=== PATIENT | male | born 1945 | race Caucasian/White ===

== ENCOUNTER → 2017-05-06 07:07 | Outpatient (CLI) | payer MEDICARE, SELFPAY ==
--- NOTE | 2017-05-06 07:23 | MRI_ITS ---
STUDY: MRI LEFT KNEE REASON FOR EXAM: Male, 71 years old. Left knee pain x2 months prior surgery. TECHNIQUE: Standardized fat and water weighted pulse sequences were obtained in all 3 orthogonal planes. COMPARISON: X-ray April 04, 2017. FINDINGS: The patient is status post partial medial meniscectomy with surgical recontouring. There is loss of substance with fraying of the free edge. There is diffuse, full thickness articular cartilage loss of the medial femorotibial compartment. There is mild osteoarthritic spur formation of the medial knee compartment. Normal medial collateral ligamentous complex (MCL). Normal distal semimembranosus, gracilis and semitendinosus tendons. Normal lateral meniscus. Normal hyaline cartilage of the lateral femorotibial compartment. Normal lateral femoral condyle and tibial plateau. Normal proximal tibiofibular articulation. Normal lateral collateral (fibular) ligament. Normal popliteus tendon. Normal biceps femoris tendon. There is edema with swelling and loss of definition of the of the ACL fascicles, producing a celery stick appearance, with preservation of the continuity of fibers, consistent with mucoid cystic degeneration, series 5 image . Normal posterior cruciate ligament (PCL). Normal congruent patellofemoral articulation. Normal hyaline cartilage of the patellofemoral compartment. Normal medial and lateral patellar retinaculum. Normal quadriceps tendon. Normal patellar tendon. Normal Hoffa's fat pad. There is a moderate volume joint effusion. The soft tissues are unremarkable. The otherwise visualized osseous structures are unremarkable. MRI/Lower Ext Joint Only (Routine) IMPRESSION: Loss of substance with surgical recontouring of the medial meniscus. Degenerative change of the medial compartment. 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 Joint effusion. Electronically Signed: Willie Stratton MD at 9:17 EST , Service support ,
== END ==
PROVIDERS: Family Provider Family Medicine Geriatric Medicine; PCP Family Medicine Geriatric Medicine; Visit Provider Family Medicine Geriatric Medicine
DX: M25.569 Pain in unspecified knee (principal)
CPT/HCPCS: 73721

== ENCOUNTER → 2017-06-11 12:08 | Outpatient (CLI) | payer MEDICARE, SELFPAY ==
[2017-06-11 16:21] LABS: Absolute Lymphocyte Count 1.71 X10^3/ul (0.83-4.51); Absolute Neutrophil Count 3.8 X10^3/uL (2.0-7.7); Basophil# 0.02 X10^3/uL; Basophil% 0.3 % (0-1); Eosinophil# 0.35 X10^3/uL; Eosinophils% 5.4 % (0-5); Hematocrit 45.8 % (40-54); Hemoglobin 14.9 g/dl (13.0-16.5); Lymphocyte # 1.71 X10^3/ul (4.0); Lymphocyte % 26.5 % (19-41); Mean Corp Hgb Conc 32.5 g/gl (32-36); Mean Corpuscular Hgb 30.9 pg (27.0-32.0); Mean Platelet Vol. 10.2 fl (6.2-12.0); Monocyte# 0.53 X10^3/uL; Monocyte% 8.2 % (0-10); Neutrophil # 3.81 X10^3/uL (2.7-7.7); Neutrophil % 59.1 % (47-70); Platelet Count 201 K/mm3 (150-450); RBC Distribution Width CV 13.3 % (11.6-14.6); RBC Distribution Width SD 45.7 fl (35.1-43.9); Red Blood Count 4.82 M/mm3 (4.6-6.2); White Blood Count 6.5 K/mm3 (4.4-11.0)
[2017-06-11 16:29] LABS: ALB/GLOB Ratio 1.1 RATIO (0.9-2.4); AST(SGOT) 17 U/L (15-37); Alanine Aminotransfer ALT/SGPT 31 U/L (16-61); Albumin, Serum 3.8 g/dL (3.2-5.0); Alkaline Phosphatase 59 U/L (45-117); Anion Gap 6 (5-15); BUN 21 mg/dL (7-18); BUN/Creat Ratio 18.6 RATIO (10-20); Calcium,Total 8.9 mg/dL (8.5-10.1); Chloride 105 mmol/L (98-107); Creatinine, Serum 1.13 mg/dL (0.70-1.30); EST Glomerular Filtration Rate 68 mL/min (>60); Est Glom Filt Rate - Afr Amer 82 mL/min (>60); Globulin 3.5 g/dL (2.2-4.2); Glucose 88 mg/dL (74-106); Protein, Total 7.3 g/dL (6.4-8.2); Sodium Level 140 mmol/L (136-145); Thyroid Stim Hormone (TSH) 2.13 uIU/mL (0.358-3.74)
[2017-06-11 16:31] LABS: POSITIVE COUNT NO; POSITIVE DIFFERENTIAL NO; POSITIVE MORPHOLOGY NO
[2017-06-12 09:06] LABS: Vitamin D,25 Hydroxy 25.1 ng/mL (29.95-100.01)
[2017-06-13 14:39] LABS: Hep C Antibodies <0.1 s/co ratio (0.0-0.9)
== END ==
PROVIDERS: Family Provider Family Medicine Geriatric Medicine; PCP Family Medicine Geriatric Medicine; Visit Provider Family Medicine Geriatric Medicine
DX: I10 Essential (primary) hypertension (principal); E55.9 Vitamin D deficiency, unspecified; F52.8 Other sexual dysfunction not due to a substance or known physiological condition; Z13.89 Encounter for screening for other disorder
CPT/HCPCS: 36415; 80053; 82306; 84403; 84443; 85025; 86803

== ENCOUNTER → 2017-12-04 11:02 | Outpatient (CLI) | payer MEDICARE, SELFPAY ==
[2017-12-04 12:43] LABS: Absolute Lymphocyte Count 1.54 X10^3/ul (0.83-4.51); Absolute Neutrophil Count 3.6 X10^3/uL (2.0-7.7); Basophil# 0.03 X10^3/uL; Basophil% 0.5 % (0-1); Eosinophil# 0.38 X10^3/uL; Eosinophils% 6.1 % (0-5); Hematocrit 45.8 % (40-54); Hemoglobin 15.4 g/dl (13.0-16.5); Lymphocyte # 1.54 X10^3/ul (4.0); Lymphocyte % 24.9 % (19-41); Mean Corp Hgb Conc 33.6 g/gl (32-36); Mean Corpuscular Volume 92.3 fL (80-94); Mean Platelet Vol. 10.1 fl (6.2-12.0); Monocyte% 9.7 % (0-10); Neutrophil % 58.2 % (47-70); Platelet Count 193 K/mm3 (150-450); RBC Distribution Width CV 12.6 % (11.6-14.6); RBC Distribution Width SD 41.9 fl (35.1-43.9); Red Blood Count 4.96 M/mm3 (4.6-6.2); White Blood Count 6.2 K/mm3 (4.4-11.0)
[2017-12-04 12:49] LABS: POSITIVE COUNT NO; POSITIVE DIFFERENTIAL NO; POSITIVE MORPHOLOGY NO
[2017-12-04 13:01] LABS: ALB/GLOB Ratio 1.1 RATIO (0.9-2.4); AST(SGOT) 20 U/L (15-37); Alanine Aminotransfer ALT/SGPT 27 U/L (16-61); Albumin, Serum 3.7 g/dL (3.2-5.0); Alkaline Phosphatase 67 U/L (45-117); Anion Gap 10 (5-15); BUN 17 mg/dL (7-18); BUN/Creat Ratio 15.6 RATIO (10-20); Calcium,Total 8.5 mg/dL (8.5-10.1); Chloride 106 mmol/L (98-107); Creatinine, Serum 1.09 mg/dL (0.70-1.30); EST Glomerular Filtration Rate 70 mL/min (>60); Est Glom Filt Rate - Afr Amer 85 mL/min (>60); Globulin 3.4 g/dL (2.2-4.2); Glucose 97 mg/dL (74-106); Potassium 3.7 mmol/L (3.5-5.1); Protein, Total 7.1 g/dL (6.4-8.2); Sodium Level 142 mmol/L (136-145); Thyroid Stim Hormone (TSH) 2.76 uIU/mL (0.358-3.74)
[2017-12-04 13:02] LABS: Vitamin D,25 Hydroxy 20.5 ng/mL (29.95-100.01)
== END ==
PROVIDERS: Family Provider Family Medicine Geriatric Medicine; PCP Family Medicine Geriatric Medicine; Visit Provider Family Medicine Geriatric Medicine
DX: I10 Essential (primary) hypertension (principal); E55.9 Vitamin D deficiency, unspecified; F52.8 Other sexual dysfunction not due to a substance or known physiological condition
CPT/HCPCS: 36415; 80053; 82306; 84403; 84443; 85025

== ENCOUNTER → 2018-06-12 09:00 | Outpatient (CLI) | payer MEDICARE, SELFPAY ==
--- NOTE | 2018-06-12 10:08 | RAD_ITS ---
STUDY: X-RAY - CERVICAL SPINE REASON FOR EXAM: Male, 72 years old. Neck pain. History of pinched nerve. TECHNIQUE: 5 view(s) of the cervical spine were obtained. COMPARISON: October 06, 2014. FINDINGS: There are degenerative changes of the anterior atlantoaxial articulation. Normal odontoid process. Normal cervical lordosis. There is multi-level endplate spondylosis. There is multi-level degenerative disc disease with multilevel disc space narrowing. There is no evidence of acute fracture or loss of vertebral axial height. There is slight anterolisthesis of C4 on C5 without visualized facet joint subluxation. The soft tissue structures are unremarkable. RAD/Cerv Spine 2 or 3 Views IMPRESSION: Degenerative changes of the cervical spine there is no major interval change. Electronically Signed: Dalton Schmidt DO at 9:13 EDT Tel [phone], Service support ,
[2018-06-12 12:47] LABS: Absolute Lymphocyte Count 2.09 X10^3/ul (0.83-4.51); Absolute Neutrophil Count 3.9 X10^3/uL (2.0-7.7); Basophil# 0.04 X10^3/uL; Basophil% 0.6 % (0-1); Eosinophil# 0.37 X10^3/uL; Eosinophils% 5.2 % (0-5); Hematocrit 47.4 % (40-54); Hemoglobin 15.8 g/dl (13.0-16.5); Lymphocyte # 2.09 X10^3/ul (4.0); Lymphocyte % 29.5 % (19-41); Mean Corp Hgb Conc 33.3 g/gl (32-36); Mean Corpuscular Hgb 31.3 pg (27.0-32.0); Mean Corpuscular Volume 93.9 fL (80-94); Mean Platelet Vol. 10.4 fl (6.2-12.0); Monocyte# 0.66 X10^3/uL; Monocyte% 9.3 % (0-10); Neutrophil # 3.89 X10^3/uL (2.7-7.7); Platelet Count 205 K/mm3 (150-450); RBC Distribution Width CV 13.1 % (11.6-14.6); RBC Distribution Width SD 44.4 fl (35.1-43.9); Red Blood Count 5.05 M/mm3 (4.6-6.2); White Blood Count 7.1 K/mm3 (4.4-11.0)
[2018-06-12 12:50] LABS: POSITIVE COUNT NO; POSITIVE DIFFERENTIAL NO; POSITIVE MORPHOLOGY NO
[2018-06-12 12:57] LABS: Vitamin D,25 Hydroxy 24.9 ng/mL (29.95-100.01)
[2018-06-12 13:03] LABS: ALB/GLOB Ratio 1.2 RATIO (0.9-2.4); AST(SGOT) 20 U/L (15-37); Alanine Aminotransfer ALT/SGPT 31 U/L (16-61); Albumin, Serum 3.9 g/dL (3.2-5.0); Alkaline Phosphatase 64 U/L (45-117); Anion Gap 4 (5-15); BUN 12 mg/dL (7-18); BUN/Creat Ratio 10.7 RATIO (10-20); Calcium,Total 8.6 mg/dL (8.5-10.1); Chloride 105 mmol/L (98-107); Creatinine, Serum 1.12 mg/dL (0.70-1.30); EST Glomerular Filtration Rate 68 mL/min (>60); Est Glom Filt Rate - Afr Amer 82 mL/min (>60); Globulin 3.3 g/dL (2.2-4.2); Glucose 94 mg/dL (74-106); Potassium 3.8 mmol/L (3.5-5.1); Protein, Total 7.2 g/dL (6.4-8.2); Sodium Level 138 mmol/L (136-145); Thyroid Stim Hormone (TSH) 3.02 uIU/mL (0.358-3.74)
== END ==
LOC: POLAB3 09:10 → RAD 10:06
PROVIDERS: Family Provider Family Medicine Geriatric Medicine; PCP Family Medicine Geriatric Medicine; Referring Provider Family Medicine Geriatric Medicine; Visit Provider Family Medicine Geriatric Medicine
DX: E55.9 Vitamin D deficiency, unspecified (principal); I10 Essential (primary) hypertension; F52.8 Other sexual dysfunction not due to a substance or known physiological condition; M54.2 Cervicalgia
CPT/HCPCS: 36415; 72040; 80053; 82306; 84403; 84443; 85025

== ENCOUNTER → 2018-08-05 12:39 | Outpatient (CLI) | payer MEDICARE, SELFPAY ==
--- NOTE | 2018-08-05 12:56 | NM_ITS ---
CLINICAL: Male, 72 years old. Shortness of breath. NUCLEAR VENTILATION/PERFUSION - LUNG TECHNIQUE: The patient was administered 5.5 mCi of Tc MAA followed by a perfusion lung scan. The patient was administered 48 mCi of Tc DTPA aerosol followed by a ventilation lung scan. Comparison made to prior chest radiograph dated earlier today.. FINDINGS: The pulmonary perfusion study demonstrates uniform perfusion throughout both lung crowley. There are no demonstrated segmental or subsegmental perfusion defects The ventilation study demonstrates uniform ventilation throughout both lung crowley. There are no segmental or subsegmental ventilation abnormalities. NM/Lung Scan Vent/Perf IMPRESSION: Normal 99m Tc MAA pulmonary perfusion Tc DTPA aerosol ventilation imaging survey, according to revised PIOPED interpretive criteria. Electronically Signed: Germán Wolff, at 14:29 EDT , Service support ,
--- NOTE | 2018-08-05 12:57 | RAD_ITS ---
STUDY: X-RAY CHEST REASON FOR EXAM: Male, 72 years old. Shortness of breath/dyspnea. TECHNIQUE: PA and lateral views of the chest. COMPARISON: None. FINDINGS: Hyperinflation. There is a 3.9 cm x 1.4 cm linear density in the lateral aspect of the left upper lobe. This may represent a focal area of fibrocalcific scarring. Correlation with CT scan is recommended. Scattered calcified granulomas. There is no demonstrated pleural abnormality. Normal size heart. Normal mediastinum and adal. Normal visualized pulmonary arteries. There is atherosclerotic calcification of the aortic arch with tortuosity. There is demineralization of the osseous structures. There is degenerative osteoarthritis of the bilateral shoulders. There is no demonstrated abnormality of the visualized soft tissue structures of the upper abdomen. RAD/Chest PA and Lateral IMPRESSION: 1.4 cm x 3.9 cm density in the lateral aspect of the left upper lobe suggestive of fibrocalcific scarring although correlation with a CT scan is recommended. Electronically Signed: Germán Wolff, at 13:46 EDT , Service support ,
[2018-08-05 13:16] LABS: Absolute Lymphocyte Count 2.08 X10^3/ul (0.83-4.51); Absolute Neutrophil Count 8.6 X10^3/uL (2.0-7.7); Basophil# 0.02 X10^3/uL; Basophil% 0.2 % (0-1); Eosinophil# 0.19 X10^3/uL; Eosinophils% 1.5 % (0-5); Hematocrit 48.5 % (40-54); Hemoglobin 16.6 g/dl (13.0-16.5); Lymphocyte # 2.08 X10^3/ul (4.0); Lymphocyte % 16.9 % (19-41); Mean Corp Hgb Conc 34.2 g/gl (32-36); Mean Corpuscular Hgb 30.8 pg (27.0-32.0); Mean Platelet Vol. 9.9 fl (6.2-12.0); Monocyte# 1.28 X10^3/uL; Monocyte% 10.4 % (0-10); Neutrophil # 8.63 X10^3/uL (2.7-7.7); Neutrophil % 70.1 % (47-70); POSITIVE COUNT NO; POSITIVE DIFFERENTIAL NO; POSITIVE MORPHOLOGY NO; Platelet Count 213 K/mm3 (150-450); RBC Distribution Width CV 12.9 % (11.6-14.6); RBC Distribution Width SD 42.4 fl (35.1-43.9); Red Blood Count 5.39 M/mm3 (4.6-6.2); White Blood Count 12.3 K/mm3 (4.4-11.0)
[2018-08-05 13:30] LABS: D-Dimer Quantitative (DVT/PE) 0.56 FEU/ug/m (0.27-0.49)
[2018-08-05 13:48] LABS: Anion Gap 10 (5-15); BUN 18 mg/dL (7-18); BUN/Creat Ratio 18.1 RATIO (10-20); CPK Total, Creatine Kinase 83 U/L (39-308); Calcium,Total 8.7 mg/dL (8.5-10.1); Chloride 108 mmol/L (98-107); Creatinine, Serum 0.99 mg/dL (0.70-1.30); EST Glomerular Filtration Rate 78 mL/min (>60); Est Glom Filt Rate - Afr Amer 95 mL/min (>60); Glucose 95 mg/dL (74-106); Potassium 4.1 mmol/L (3.5-5.1); Sodium Level 142 mmol/L (136-145)
[2018-08-06 12:09] LABS: Myoglobin, Serum 48 ng/mL (28-72)
== END ==
LOC: CT 12:53 → NM 12:55
PROVIDERS: Family Provider Family Medicine Geriatric Medicine; PCP Family Medicine Geriatric Medicine; Referring Provider Family Medicine Geriatric Medicine; Visit Provider Family Medicine Geriatric Medicine
DX: R06.02 Shortness of breath (principal)
CPT/HCPCS: 36415; 71046; 78582; 80048; 82550; 83874; 83880; 84484; 85025; 85379; A9540; A9567

== ENCOUNTER 2018-08-05 17:53 | Inpatient (IN) | payer MEDICARE, SELFPAY ==
[2018-08-05] VITALS (7 sets, daily range): BP systolic 146–182; BP diastolic 81–100; PULSE 69–88; RESP 16–18; TEMP 36.5–36.8; O2SAT 96–99; BMI 25.0; BMI 25.8; BMI 25.9
--- NOTE | 2018-08-05 18:08 | EKG12_ITS ---
Test Reason : ABD PAIN Blood Pressure : / mmHG Vent. Rate : 073 BPM Atrial Rate : 073 BPM P-R Int : 128 ms QRS Dur : 092 ms QT Int : 428 ms P-R-T Axes : 043 042 067 degrees QTc Int : 471 ms Normal sinus rhythm Nonspecific ST abnormality Abnormal ECG Confirmed by ZHENG HIGH ([id number]), primer expeditor and drier FRANCOIS SILVERIO ([id number]) on 08/14/2018 9:31:29 AM Referred By: Fox Martinez Confirmed By:ZHENG HIGH
--- NOTE | 2018-08-05 18:30 | ED.VISSUMM ---
- ER Visit Summary Date of Service: 08/05/18 Chief Complaint: Chest pain, shortness of breath History of Present Illness: The patient is a 72 M presenting with chest pain, shortness of breath. Patient was seen by his primary care physician today. Outpatient labs were ordered. This showed elevated d-dimer and troponin. He states that he had bronchitis 1.5 weeks ago. He states the symptoms are improving. He states on he was golfing and had shortness of breath and chest pain with exertion. He states he has never had these symptoms in the past with golfing. He has a family history of DVT, no other PE/DVT risk factors. He has a history of hypertension, hypercholesterolemia. He is a previous smoker. His father had an DC at age 60. Physical Examination: Vitals are stable. Patient is afebrile. Alert no acute distress. HEENT exam is unremarkable. Neck is supple. Lungs are clear and equal bilaterally. Heart is regular rate and rhythm. Abdomen is soft nontender nondistended. Extremities are unremarkable. Skin is warm and dry. No focal neurologic deficit. Remainder of exam is unremarkable. Emergency Department Course and Treatment: EKG is sinus rate of 73. Chest x-ray from earlier today shows 1.4 cm x 3.9 cm density in the lateral aspect of the left upper lobe suggestive of fibrocalcific scarring although correlation with a CT scan is recommended. CBC showed a white count of 12.3, chemistries unremarkable. Troponin 0.069. BNP 67. D-dimer 0.56. VQ scan was unremarkable. On arrival to the ED patient was given aspirin. He is chest pain-free. Repeat troponin was obtained and is 0.043. On reevaluation, patient continues to be chest pain-free. Discussed with the hospitalist for observation. Disposition: Observation Impression: Chest pain This note was generated with [employer] dictation software. It may contain incorrect words, spelling, and punctuation that were not noted in review of the chart prior to signing ED Disposition - Plan for ED Patient: Referrals: Fox Martinez Chi, MD [Primary Care Provider] -
--- NOTE | 2018-08-05 18:33 | ED.DCSUM_ITS ---
- ER Visit Summary Date of Service: 08/05/18 Chief Complaint: Chest pain, shortness of breath History of Present Illness: The patient is a 72 M presenting with chest pain, shortness of breath. Patient was seen by his primary care physician today. Outpatient labs were ordered. This showed elevated d-dimer and troponin. He states that he had bronchitis 1.5 weeks ago. He states the symptoms are improving. He states on he was golfing and had shortness of breath and chest pain with exertion. He states he has never had these symptoms in the past with golfing. He has a family history of DVT, no other PE/DVT risk factors. He has a history of hypertension, hypercholesterolemia. He is a previous smoker. His father had an NC at age 60. Physical Examination: Vitals are stable. Patient is afebrile. Alert no acute distress. HEENT exam is unremarkable. Neck is supple. Lungs are clear and equal bilaterally. Heart is regular rate and rhythm. Abdomen is soft nontender nondistended. Extremities are unremarkable. Skin is warm and dry. No focal neurologic deficit. Remainder of exam is unremarkable. Emergency Department Course and Treatment: EKG is sinus rate of 73. Chest x-ray from earlier today shows 1.4 cm x 3.9 cm density in the lateral aspect of the left upper lobe suggestive of fibrocalcific scarring although correlation with a CT scan is recommended. CBC showed a white count of 12.3, chemistries unremarkable. Troponin 0.069. BNP 67. D-dimer 0.56. VQ scan was unremarkable. On arrival to the ED patient was given aspirin. He is chest pain-free. Repeat troponin was obtained and is 0.043. On reevaluation, patient continues to be chest pain-free. Discussed with the hospitalist for observation. Disposition: Observation Impression: Chest pain This note was generated with [employer] dictation software. It may contain incorrect words, spelling, and punctuation that were not noted in review of the chart prior to signing ED Disposition - Plan for ED Patient: Referrals: Fox Martinez Chi, MD [Primary Care Provider] -
[2018-08-05] MEDS: Aspirin 325 MG Tablet PO (19:01)
--- NOTE | 2018-08-05 20:06 | HP.PCM_ITS ---
Problem List (1) Subacute bronchitis Status: Acute (2) Atypical chest pain Status: Acute (3) Hypertension Status: Chronic (4) Dyslipidemia Status: Chronic History of Present Illness Date of Admission: 08/05/18 Chief Complaint: Chest pain and bronchitis for 1 1/2 weeks. The patient is a 72 year old M with history of hypertension and dyslipidemia was sent to ER by PCP for having chest pain or shortness of breath for 1 and half weeks. Patient had extensive work-up as an outpatient including d-dimer which was elevated. D-dimer 0.56. Mild leukocytosis, 12,300 and hematocrit 48.5. First troponin was 0.069 but second 1 in ED was normal 0.043. BNP 67. CK 83. EKG shows normal sinus rhythm at [address]-T changes suggestive of ischemia. Patient also had normal VQ scan as an outpatient today. Chest x-ray showed hyperinflation and 1.4 x 3.9 cm density in the lateral aspect of left upper lobe suggestive of fibrocalcific scarring. [] Past Medical History Past Medical History (Chronic Problems): Chronic Problems Hypertension (Chronic) Dyslipidemia (Chronic) Allergies Iodine and Iodide Containing Produc Allergy (Verified 08/05/18 17:56) Itching Home Medications: Ambulatory Orders Medication Instructions Recorded Metoprolol Tartrate [Lopressor 12.5 mg PO BID 08/05/18 (beta laura)] Omeprazole 40 mg PO DAILY PRN PRN 08/05/18 Smoking Status: Former smoker - Quit 10 years ago. 40 pack years of his smoking - *Family History Paternal History Items: DVT - DVT and PE, Heart Disease - [place] at age of 61. Review of Systems Constitutional: Denies: Chills, Fever, Weight Change HEENT: Reports: Post Nasal Drip, Sinus Congestion, Sinus Drainage, Sore Throat. Denies: Head Aches Cardiovascular: Reports: Chest Pain, Chest Tightness. Denies: Palpitations Respiratory: Reports: Cough, Shortness of breath upon exertion. Denies: Shortness of breath at rest, Sputum production Gastrointestinal: Denies: Abdominal Pain, Nausea, Vomiting Genitourinary: Denies: Dysuria Musculoskeletal: Denies: Joint Pain, Joint Tenderness Skin: Denies: Rash, Wounds Neurological: Denies: Numbness, Tingling, Focal weakness Psychiatric: Denies: Anxiety, Depression, Homicidal Ideations, Suicidal Ideations Hematologic/ Lymphatic: Denies: Easy Bruising, Easy Bleeding VTE Information - Inpt Only VTE Present on Admission: No VTE Mechan Device Prophylaxis: None VTE Pharm Prophylaxis ordered?: Yes Patient Problems: Active and Suspected Problems Subacute bronchitis (Acute) Atypical chest pain (Acute) - Physical Exam General: Alert, Oriented x3, Cooperative HEENT: Atraumatic, PERRLA, EOMI, Normocephalic Oral: - - No lateral pharyngeal wall or postpharyngeal inflammation or ulcer Neck: Supple, No JVD, Negative Carotid Bruits Lungs: Clear to auscultation, Normal air movement, No rhonchi, No wheeze, No rales Cardiovascular: Regular rate, Regular Rhythm, Normal S1, Normal S2, No murmurs Abdomen: Bowel Sounds Present, Soft, Non Tender, Non-Distended Extremities: No edema, Capillary Refill Less than 3 Seconds Skin: No rashes, No breakdown Musculoskeletal: No Tenderness to Palpation of Joints or Extremities, Arthritic Changes Lymphatic: No Cervical, Supraclavicular, or Inguinal Adenopathy Neurological: Cranial nerves II-XII grossly intact, Deep Tendon Reflexes 2+/4 and Symmetrical, Neuro grossly intact, Motor Exam 5/5 strength throughout Psych/Mental Status: Normal Affect, Appropriate Vital Signs Temp Pulse Resp BP Pulse Ox 97.8 F 73 17 182/100 H 97 08/05/18 17:53 08/05/18 18:04 08/05/18 18:04 08/05/18 18:04 08/05/18 18:04 Oxygen Delivery Method Room Air Weight: 190 lb Body Mass Index (BMI) 25.0 Laboratory Tests Past 24 Hrs 08/05/18 18:18 Troponin I 0.043 Assessment/Plan All Active Problems Subacute bronchitis (Acute) Atypical chest pain (Acute) The patient is a 72 year old M with history of hypertension and dyslipidemia was sent to ER by PCP for having chest pain or shortness of breath for 1 and half weeks. Patient had extensive work-up as an outpatient including d-dimer which was elevated. D-dimer 0.56. Mild leukocytosis, 12,300 and hematocrit 48.5. First troponin was 0.069 but second 1 in ED was normal 0.043. BNP 67. CK 83. EKG shows normal sinus rhythm at [address]-T changes suggestive of ischemia. Patient also had normal VQ scan as an outpatient on 08/05. Chest x- ray showed hyperinflation and 1.4 x 3.9 cm density in the lateral aspect of left upper lobe suggestive of fibrocalcific scarring. 1. Atypical chest pain with shortness of breath, rule out acute coronary syndrome: Patient had a stress test about 5 years ago prior to surgical procedure and was normal as per the patient. Patient is being admitted in PCU. Serial troponin enzymes. Treadmill stress test tomorrow morning. 2. Subacute bronchitis: As per the patient, he completed recent antibiotic by Dr. Martinez on last Saturday about 4 days ago. Does not remember the name of antibiotic. Chest x-ray shows features of hyperinflation and linear density in the left upper lobe which will need further CT scan as an outpatient. 3. Hypertension and dyslipidemia: Home medication continued. Patient is not on a statin secondary to myalgia and severe muscle cramps in the past. Positive probably tomorrow a.m. TSH tomorrow a.m. Previous TSH in May was normal. 4. DVT prophylaxis: Lovenox 40 mg subcu daily. Code Visit OBSV E&M: [id number] Initial observation care L3
--- NOTE | 2018-08-05 20:24 | EKG12_ITS ---
Test Reason : Blood Pressure : / mmHG Vent. Rate : 067 BPM Atrial Rate : 067 BPM P-R Int : 134 ms QRS Dur : 092 ms QT Int : 436 ms P-R-T Axes : 026 051 086 degrees QTc Int : 460 ms Normal sinus rhythm Normal ECG When compared with ECG of 05-AUG-2018 18:25, MANUAL COMPARISON REQUIRED, DATA IS UNCONFIRMED Confirmed by TEMO ESTRELLA, DEBORAH ([id number]), clinical editor JOSE ANTONIO GARCIA ([id number]) on 08/18/2018 2:58:05 PM Referred By: Fox Martinez Confirmed By:DEBORAH PLASCENCIA MD
[2018-08-05] MEDS: 0.9% Normal Saline 1,000 ML 75 ML IV (20:48)
[2018-08-05] MEDS: 0.9% NaCl Peripheral Flush Adult/Peds IV (22:19)
[2018-08-05] MEDS: Metoprolol Tartrate 25 MG Tablet 12.5 MG PO (22:19)
[2018-08-06] VITALS (12 sets, daily range): BP systolic 120–140; BP diastolic 71–92; PULSE 61–90; RESP 16–18; TEMP 36.4–37; O2SAT 96–98
[2018-08-06 05:17] LABS: Absolute Lymphocyte Count 1.01 X10^3/ul (0.83-4.51); Absolute Neutrophil Count 11.7 X10^3/uL (2.0-7.7); Hematocrit 44.9 % (40-54); Hemoglobin 15.7 g/dl (13.0-16.5); Lymphocyte # 1.01 X10^3/ul (4.0); Lymphocyte % 7.6 % (19-41); Mean Corpuscular Hgb 31.2 pg (27.0-32.0); Mean Corpuscular Volume 89.3 fL (80-94); Mean Platelet Vol. 9.5 fl (6.2-12.0); Monocyte# 0.54 X10^3/uL; Neutrophil # 11.74 X10^3/uL (2.7-7.7); Neutrophil % 87.8 % (47-70); POSITIVE COUNT NO; POSITIVE DIFFERENTIAL NO; POSITIVE MORPHOLOGY NO; Platelet Count 198 K/mm3 (150-450); RBC Distribution Width CV 12.5 % (11.6-14.6); RBC Distribution Width SD 40.6 fl (35.1-43.9); Red Blood Count 5.03 M/mm3 (4.6-6.2); White Blood Count 13.4 K/mm3 (4.4-11.0)
[2018-08-06 05:23] LABS: International Normalized Ratio 1.1; Prothrombin Time (Protime)PT. 14.4 SECONDS (11.7-14.9)
[2018-08-06 05:46] LABS: Anion Gap 7 (5-15); BUN 19 mg/dL (7-18); BUN/Creat Ratio 19.9 RATIO (10-20); Calcium,Total 8.5 mg/dL (8.5-10.1); Chloride 107 mmol/L (98-107); Cholesterol 276 mg/dL (200); Creatinine, Serum 0.96 mg/dL (0.70-1.30); EST Glomerular Filtration Rate 82 mL/min (>60); Est Glom Filt Rate - Afr Amer 99 mL/min (>60); Glucose 147 mg/dL (74-106); High Density Lipoprotein 59 mg/dL; Potassium 4.8 mmol/L (3.5-5.1); Sodium Level 140 mmol/L (136-145); Thyroid Stim Hormone (TSH) 0.24 uIU/mL (0.358-3.74); Triglycerides 111 mg/dL; Very Low Density Lipoprotein 22 mg/dL (5-40)
--- NOTE | 2018-08-06 05:55 | EKG12_ITS ---
Test Reason : Blood Pressure : / mmHG Vent. Rate : 068 BPM Atrial Rate : 068 BPM P-R Int : 132 ms QRS Dur : 088 ms QT Int : 478 ms P-R-T Axes : 048 056 092 degrees QTc Int : 508 ms Normal sinus rhythm Nonspecific ST and T wave abnormality Prolonged QT Abnormal ECG When compared with ECG of 05-AUG-2018 20:54, MANUAL COMPARISON REQUIRED, DATA IS UNCONFIRMED Confirmed by TEMO ESTRELLA, DEBORAH ([id number]), telegraph editor JOSE ANTONIO GARCIA ([id number]) on 08/18/2018 2:55:49 PM Referred By: Fox Martinez Confirmed By:DEBORAH PLASCENCIA MD
[2018-08-06] MEDS: Aspirin E.C. 81 MG Tablet PO (06:12)
--- NOTE | 2018-08-06 06:15 | STEWCON_ITS ---
Reason For Study: Chest Pain; Dyspnea Stress Results Protocol: Ahsan Protocol Maximum Predicted HR: 146 bpm Target HR: 124 bpm % Maximum Predicted HR: 93 % DurationHeart Rate Stage (mm:ss) (bpm) BP Comment Baseline 70 144/82No Chest Pain; Diluted Definity 4 ML Given Ahsan Protocol Stage I 3:00 100 174/78No Chest Pain; Mild Dyspnea Ahsan Protocol Stage II 3:00 130 164/80No Chest Pain; Mild to Moderate Dyspnea Ahsan Protocol Stage III 0:45 136 / No Chest Pain; Moderate Dyspnea Recovery 87 130/68No Chest Pain Stress Duration: 6:45 mm:ss Maximum Stress HR: 136 bpm METS: 9 Baseline Echocardiogram Findings The estimated ejection fraction is 65 %. Stress Echo Wall motion Data Resting WM Intermediate WM Stress WM Resting Wall Motion Wall Motion Stress No regional wall motion Basal anteroseptal: Severely abnormalities noted. Hypokinetic. Mid-Anterior : Severely Hypokinetic. Mid-anteroseptal : Mildly hypokinetic. Anterior [place] : Mildly hypokinetic. EKG Data The baseline ECG displays normal sinus rhythm. The patient exercised according to the regular Ahsan protocol for a total duration of 6:45. The maximum heart rate attained was 136 beats per minute. This was 93% of maximum predicted heart rate. The patient exercised into stage 3 of the Ahsan protocol. The stress ECG displays diffuse abnormal ST segments. Interpretation Summary The estimated ejection fraction is 65 %. Basal anteroseptal: Severely Hypokinetic. Mid-Anterior : Severely Hypokinetic. Abnormal, adequate, treadmill echocardiogram. Positive for ischemia by EKG and echocardiographic criteria. Patient developed [address] segment depression during exercise and into recovery. In addition he developed mid anterior septal and apical hypokinesis of a significant degree. Appropriate blood pressure response to exercise. Average exercise capacity for age. Test terminated due to dyspnea. Difficult echo windows makes interpretation somewhat problematic. Final LVEF of 45%. No complications. Ordering Physician: Guillermo Miller Referring Physician: Dennys Herman Performed By: Yodit Cox RDCS
[2018-08-06] MEDS: Metoprolol Tartrate 25 MG Tablet 12.5 MG PO ×2 (10:16→21:46)
[2018-08-06 10:58] LABS: T4 Free Direct 0.92 ng/dL (0.76-1.46)
--- NOTE | 2018-08-06 11:03 | CASEMGMT ---
According to the [employer] website, the following are in-network tertiary facilities: [facility], [facility], [facility], and . Ranjan ARRIOLA CM
--- NOTE | 2018-08-06 11:26 | PCM.PN.HOSP ---
Patient Problems: Active and Suspected Problems Subacute bronchitis (Acute) Atypical chest pain (Acute) Subjective: Patient with no acute events overnight per self and per nursing report. Patient discussion with noted bronchitis for approximately 1/2 weeks with ongoing shortness of breath and atypical chest pain which prompted referral to the ED following outpatient chest x-ray as well as normal VQ scan as a d-dimer had been obtained and mildly related. He currently denies any chest discomfort and states that stress test on the treadmill was the best he is felt in days. Patient denies fevers, chills, nausea, emesis, abdominal pain, recurrent or worsened chest pain or dyspnea. Objective: Physical Examination: General: awake, alert, oriented x 3 and cooperative, seated upright in bed in no apparent distress. Skin: normal color, turgor, no icterus, cyanosis. HEENT: AT/NC, EOMI, PERRLA, MMM. Lungs: CTA bilaterally, moderate effort, moderate decrease BL bases, no rales, ronchi or wheezing. Heart: Regular rate and rhythm; no gallop, rub audible. Abdomen: soft, NTTP, ND, normal BS. Extremities: no cyanosis, clubbing, or edema. Neurological: patient awake, alert, oriented x 3; cognitive function intact; pupils equally reactive to light and accomodation; cranial nerves II-XII grossly normal, moving all 4 extremities, no focal deficits, strength mildly globally decreased. Psychiatric: affect appears normal, no acute evidence of depressive or anxiety feelings. Vitals/I&O's: Vital Signs Temp Pulse Resp BP Pulse Ox 97.9 F 66 18 137/74 H 96 08/06/18 08:42 08/06/18 11:15 08/06/18 08:42 08/06/18 08:42 08/06/18 08:42 Oxygen Delivery Method Room Air Weight: 195 lb 1.745 oz Body Mass Index (BMI) 25.8 Intake and Output for Last 24 Hours 08/04/18 08/05/18 08/06/18 23:59 23:59 23:59 Intake Total 1680 / 1680 Balance 1680 / 1680 Laboratory Results 08/05/18 18:18: Troponin I 0.043 08/05/18 21:46: Troponin I 0.036 08/06/18 00:28: Troponin I 0.028 08/06/18 05:05: Sodium 140, Potassium 4.8, Chloride 107, Carbon Dioxide 26.0, Anion Gap 7, BUN 19 H, Creatinine 0.96, Estim Creat Clear Calc 74.10, Est GFR (MDRD) Af Amer 99, Est GFR (MDRD) Non-Af 82, BUN/Creatinine Ratio 19.9, Glucose 147 H, Calcium 8.5, Triglycerides 111, Cholesterol 276 H, LDL Cholesterol 195 H, VLDL Cholesterol 22, HDL Cholesterol 59, TSH 0.24 L 08/06/18 05:05: WBC 13.4 H, RBC 5.03, Hgb 15.7, Hct 44.9, MCV 89.3, MCH 31.2, MCHC 35.0, RDW 12.5, RDW Differential 40.6, Plt Count 198, MPV 9.5, Immature Gran % (Auto) 0.600, Neut % (Auto) 87.8 H, Lymph % (Auto) 7.6 L, [place] % (Auto) 4.0, Eos % (Auto) 0.0, Baso % (Auto) 0.0, Absolute Neuts (auto) 11.7 H, Absolute Lymphs (auto) 1.01, Total Counted Not Reportable 08/06/18 05:05: PT 14.4, INR 1.1, APTT 30.0 08/06/18 05:05: Free T4 0.92 Current Medications Aspirin (Ecotrin) 81 mg PO DAILY@0800 [facility] Last Admin: 08/06/18 06:12 Dose: 81 mg Clopidogrel Bisulfate (Plavix) 75 mg PO DAILY [facility] Diphenhydramine HCl (Benadryl) 50 mg PO X1 ONE Stop: 08/07/18 05:01 Enoxaparin Sodium (Lovenox) 40 mg SC DAILY [facility] Last Admin: 08/06/18 09:09 Dose: Not Given Methylprednisolone (Solu-Medrol) 125 mg IV X1 ONE Stop: 08/07/18 05:01 Metoprolol Tartrate (Lopressor (Beta Cecilia)) 12.5 mg PO BID [facility] Last Admin: 08/06/18 10:16 Dose: 12.5 mg Nitroglycerin (Nitrostat) 0.4 mg SUBLINGUAL Q5M PRN PRN Reason: CHEST PAIN Pantoprazole Sodium (Protonix) 40 mg PO DAILY PRN PRN Reason: HEARTBURN Sodium Chloride () 5 - 15 ml IV UD PRN PRN Reason: SALINE FLUSH Last Admin: 08/05/18 22:19 Dose: 10 ml Medical Necessity - Tobacco Use Smoking Status: Former smoker Assessment/Plan All Active Problems Subacute bronchitis (Acute) Atypical chest pain (Acute) The patient is a 72 y/o M w/ PMHx: HTN, HLD, Former Tobacco use who presents to the [facility] ED on 08/05/18 with history of recent acute bronchitis x 1.5 weeks with ongoing dyspnea but then onset atypical chest discomfort with outpatient evaluation w/ no acute findings on CXR, elevated D-dimer with follow-up unremarkable VQ scan with eventual referral to the ED. (1) Chest Pain: EKG in ED nonspecific ST-T wave changes but no acute evidence of ischemia with sinus rhythm, CXR w/ PCP prior to presentation with 1.47 m x 3.9 similar density in the lateral aspect of the left upper lobe suggestive of a fibrocalcific scarring with recommend CT correlation outpatient, initial trop 0.043 with repeat trending 0.036-->0.028. Admitted to PCU, placed on a monitored bed with serial cardiac enzymes and EKGs. 08/06/18 AM cardiac stress testing performed per ice cream freezer abnormal. Cardiology consulted with planned cardiac catheterization 08/07/18 with planned pretreatment today and tomorrow given patient contrast allergy per cardiology direction. ASA, NG, morphine. FLP w/ triglycerides 111, total cholesterol 276, LDL 195, VLDL 22, HDL 59. Mag pending. (2) Incidental CXR findings: CXR w/ 1.47 m x 3.9 similar density in the lateral aspect of the left upper lobe suggestive of a fibrocalcific scarring, upon discharge will recommend CT correlation per primary care direction. (3) Hypertension: Continue home regimen including metoprolol, PRN hydralazine. (4) Hyperlipidemia: Notes familial, statin intolerant, FLP with triglycerides 111, total cholesterol 276, LDL 195, VLDL 22, HDL 59. (5) Subclinical Hyperthyroidism: TSH mildly decreased 0.24 with normal free T4, subclinical, given acute presentation and recent acute bronchitis would recommend follow-up thyroid function studies in 6 to 8 weeks. (6) Former Tobacco Use: 40 pack year history, encourage continued cessation. (7) GERD: PPI. (8) DVT prophylaxis: SCDs, Lovenox. Code Visit OBSV E&M: 77460 Subsequent observation care L3
--- NOTE | 2018-08-06 11:35 | PN_ITS ---
Patient Problems: Active and Suspected Problems Subacute bronchitis (Acute) Atypical chest pain (Acute) Subjective: Patient with no acute events overnight per self and per nursing report. Patient discussion with noted bronchitis for approximately 1/2 weeks with ongoing shortness of breath and atypical chest pain which prompted referral to the ED following outpatient chest x-ray as well as normal VQ scan as a d-dimer had been obtained and mildly related. He currently denies any chest discomfort and states that stress test on the treadmill was the best he is felt in days. Patient denies fevers, chills, nausea, emesis, abdominal pain, recurrent or worsened chest pain or dyspnea. Objective: Physical Examination: General: awake, alert, oriented x 3 and cooperative, seated upright in bed in no apparent distress. Skin: normal color, turgor, no icterus, cyanosis. HEENT: AT/NC, EOMI, PERRLA, MMM. Lungs: CTA bilaterally, moderate effort, moderate decrease BL bases, no rales, ronchi or wheezing. Heart: Regular rate and rhythm; no gallop, rub audible. Abdomen: soft, NTTP, ND, normal BS. Extremities: no cyanosis, clubbing, or edema. Neurological: patient awake, alert, oriented x 3; cognitive function intact; pupils equally reactive to light and accomodation; cranial nerves II-XII grossly normal, moving all 4 extremities, no focal deficits, strength mildly globally decreased. Psychiatric: affect appears normal, no acute evidence of depressive or anxiety feelings. Vitals/I&O's: Vital Signs Temp Pulse Resp BP Pulse Ox 97.9 F 66 18 137/74 H 96 08/06/18 08:42 08/06/18 11:15 08/06/18 08:42 08/06/18 08:42 08/06/18 08:42 Oxygen Delivery Method Room Air Weight: 195 lb 1.745 oz Body Mass Index (BMI) 25.8 Intake and Output for Last 24 Hours 08/04/18 08/05/18 08/06/18 23:59 23:59 23:59 Intake Total 1680 / 1680 Balance 1680 / 1680 Laboratory Results 08/05/18 18:18: Troponin I 0.043 08/05/18 21:46: Troponin I 0.036 08/06/18 00:28: Troponin I 0.028 08/06/18 05:05: Sodium 140, Potassium 4.8, Chloride 107, Carbon Dioxide 26.0, Anion Gap 7, BUN 19 H, Creatinine 0.96, Estim Creat Clear Calc 74.10, Est GFR (MDRD) Af Amer 99, Est GFR (MDRD) Non-Af 82, BUN/Creatinine Ratio 19.9, Glucose 147 H, Calcium 8.5, Triglycerides 111, Cholesterol 276 H, LDL Cholesterol 195 H, VLDL Cholesterol 22, HDL Cholesterol 59, TSH 0.24 L 08/06/18 05:05: WBC 13.4 H, RBC 5.03, Hgb 15.7, Hct 44.9, MCV 89.3, MCH 31.2, MCHC 35.0, RDW 12.5, RDW Differential 40.6, Plt Count 198, MPV 9.5, Immature Gran % (Auto) 0.600, Neut % (Auto) 87.8 H, Lymph % (Auto) 7.6 L, [place] % (Auto) 4.0, Eos % (Auto) 0.0, Baso % (Auto) 0.0, Absolute Neuts (auto) 11.7 H, Absolute Lymphs (auto) 1.01, Total Counted Not Reportable 08/06/18 05:05: PT 14.4, INR 1.1, APTT 30.0 08/06/18 05:05: Free T4 0.92 Current Medications Aspirin (Ecotrin) 81 mg PO DAILY@0800 [facility] Last Admin: 08/06/18 06:12 Dose: 81 mg Clopidogrel Bisulfate (Plavix) 75 mg PO DAILY [facility] Diphenhydramine HCl (Benadryl) 50 mg PO X1 ONE Stop: 08/07/18 05:01 Enoxaparin Sodium (Lovenox) 40 mg SC DAILY [facility] Last Admin: 08/06/18 09:09 Dose: Not Given Methylprednisolone (Solu-Medrol) 125 mg IV X1 ONE Stop: 08/07/18 05:01 Metoprolol Tartrate (Lopressor (Beta Cecilia)) 12.5 mg PO BID [facility] Last Admin: 08/06/18 10:16 Dose: 12.5 mg Nitroglycerin (Nitrostat) 0.4 mg SUBLINGUAL Q5M PRN PRN Reason: CHEST PAIN Pantoprazole Sodium (Protonix) 40 mg PO DAILY PRN PRN Reason: HEARTBURN Sodium Chloride () 5 - 15 ml IV UD PRN PRN Reason: SALINE FLUSH Last Admin: 08/05/18 22:19 Dose: 10 ml Medical Necessity - Tobacco Use Smoking Status: Former smoker Assessment/Plan All Active Problems Subacute bronchitis (Acute) Atypical chest pain (Acute) The patient is a 72 y/o M w/ PMHx: HTN, HLD, Former Tobacco use who presents to the [facility] ED on 08/05/18 with history of recent acute bronchitis x 1.5 weeks with ongoing dyspnea but then onset atypical chest discomfort with outpatient evaluation w/ no acute findings on CXR, elevated D-dimer with follow-up unremarkable VQ scan with eventual referral to the ED. (1) Chest Pain: EKG in ED nonspecific ST-T wave changes but no acute evidence of ischemia with sinus rhythm, CXR w/ PCP prior to presentation with 1.47 m x 3.9 similar density in the lateral aspect of the left upper lobe suggestive of a fibrocalcific scarring with recommend CT correlation outpatient, initial trop 0.043 with repeat trending 0.036-->0.028. Admitted to PCU, placed on a monitored bed with serial cardiac enzymes and EKGs. 08/06/18 AM cardiac stress testing performed per clinical staff anesthesiologist abnormal. Cardiology consulted with planned cardiac catheterization 08/07/18 with planned pretreatment today and tomorrow given patient contrast allergy per cardiology direction. ASA, NG, morphine. FLP w/ triglycerides 111, total cholesterol 276, LDL 195, VLDL 22, HDL 59. Mag pending. (2) Incidental CXR findings: CXR w/ 1.47 m x 3.9 similar density in the lateral aspect of the left upper lobe suggestive of a fibrocalcific scarring, upon discharge will recommend CT correlation per primary care direction. (3) Hypertension: Continue home regimen including metoprolol, PRN hydralazine. (4) Hyperlipidemia: Notes familial, statin intolerant, FLP with triglycerides 111, total cholesterol 276, LDL 195, VLDL 22, HDL 59. (5) Subclinical Hyperthyroidism: TSH mildly decreased 0.24 with normal free T4, subclinical, given acute presentation and recent acute bronchitis would recommend follow-up thyroid function studies in 6 to 8 weeks. (6) Former Tobacco Use: 40 pack year history, encourage continued cessation. (7) GERD: PPI. (8) DVT prophylaxis: SCDs, Lovenox. Code Visit OBSV E&M: [id number] Subsequent observation care L3
[2018-08-06] MEDS: Clopidogrel Bisulfate 300 MG Tablet PO (11:46)
[2018-08-06] MEDS: Famotidine 20 MG Tablet PO (11:47)
[2018-08-06] MEDS: MethylPREDNISolone 125 MG/2 ML Vial IV (11:47)
[2018-08-06] MEDS: DiphenhydrAMINE 25 MG Capsule PO (11:47)
[2018-08-06] MEDS: 0.9% NaCl Peripheral Flush Adult/Peds IV (11:50)
[2018-08-06 11:55] LABS: Magnesium 2.2 mg/dL (1.6-2.6)
--- NOTE | 2018-08-06 13:56 | CASEMGMT ---
Patient has a Healthcare Power of Criminal Justice Teacher and a Healthcare Living Will. He was notified they are not on file at [facility]. Leny GARLAND MSW
--- NOTE | 2018-08-06 16:57 | ECHOD_ITS ---
Reason For Study: CHEST PAIN Procedure This was a 2D Doppler, Color Flow transthoracic echocardiogram. Exam performed portable in patient room. Left Ventricle Normal size and thickness. The estimated ejection fraction is 55-60 %. Stage 1 diastolic dysfunction. No regional wall motion abnormalities noted. Right Ventricle Mildly dilated right ventricle. Normal systolic function. Atria Normal left atrium. Normal right atrium. Normal atrial septum. Mitral Valve Mild diffuse mitral valve calcification. Mild (1+) mitral valve insufficiency. Tricuspid Valve Normal tricuspid valve. Trivial tricuspid valve insufficiency. Right ventricular systolic pressure estimated to be 24 mmHg. Aortic Valve Trisinus/trileaflet aortic valve. Mild focal aortic valve thickening. Mild aortic stenosis. Peak aortic valve gradient 13 mmHg. Mean aortic valve gradient 9 mmHg. Mild (1+) aortic valve insufficiency. Pulmonic Valve Normal pulmonic valve. Trivial pulmonic valve insufficiency. Great Vessels Normal aortic root. Mild atherosclerosis of the aortic arch. Normal inferior vena cava. Inferior vena cava collapse with sniff. Pericardium/Pleural No pericardial effusion. MMode/2D Measurements & Calculations LVIDd: 4.7 cm IVSd: 1.2 cm LVOT diam: 2.2 cm LVIDs: 3.1 cm LVPWd: 1.1 cm LVOT area: 3.7 cm2 RVDd: 4.0 cm FS: 34.9 % Ao root diam: 3.5 cm LAV(MOD-bp): 66.8 ml LVAd ap4: 33.7 cm2 LAV(MOD-bp) Indexed: 31.7 ml/m2 EDV(MOD-sp4): 110.9 ml LAV(MOD-sp2): 66.6 ml EDV(sp4-el): 117.2 ml LAV(MOD-sp4): 56.3 ml LVAs ap4: 22.8 cm2 ESV(MOD-sp4): 58.3 ml ESV(sp4-el): 58.7 ml EF(MOD-sp4): 47.4 % EF(sp4-el): 49.9 % SV(MOD-sp4): 52.6 ml SV(sp4-el): 58.5 ml LA A4 area: 20.9 cm2 LA dimension(2D): 4.3 cm RA A4 area: 19.8 cm2 Time Measurements MV dec time: 0.22 sec Doppler Measurements & Calculations MV E max donald: 77.1 cm/sec Lat Peak E' Donald: 6.6 cm/sec Med Peak E' Donald: 6.6 cm/sec MV A max donald: 91.8 cm/sec E/E' lat: 11.6 E/E' med: 11.6 MV E/A: 0.84 Ao V2 max: 181.7 cm/sec AI max donald: 466.5 cm/sec LV V1 max: 72.0 cm/sec Ao max P.2 mmHg AI max P.1 mmHg LV V1 max P.1 mmHg Ao V2 mean: 141.7 cm/sec LV V1 mean P.2 mmHg Ao mean P.6 mmHg AI dec slope: 190.2 cm/sec2 LV V1 mean: 50.9 cm/sec Ao V2 VTI: 48.8 cm AI P1/2t: 718.2 msec LV V1 VTI: 18.4 cm RAFFAELE(I,D): 1.4 cm2 RAFFAELE(V,D): 1.5 cm2 SV(LVOT): 67.5 ml PA V2 max: 74.0 cm/sec PI end-d donald: 79.2 cm/sec Interpretation Summary The estimated ejection fraction is 55-60 %. Stage 1 diastolic dysfunction. Mild (1+) mitral valve insufficiency. Trivial tricuspid valve insufficiency. Right ventricular systolic pressure estimated to be 24 mmHg. Mild (1+) aortic valve insufficiency. Mild aortic stenosis. Compared to echo report dated 12/14/2014, no appreciable changes noted. Ordering Physician: Dennys Herman Referring Physician: ANDRES FISCHER CHI Performed By: Ngoc Palma, KEVINCS, RVT
--- NOTE | 2018-08-06 16:58 | PCM.CONS.C ---
Problem List (1) Dyspnea on exertion Status: Acute (2) Atypical chest pain Status: Acute (3) Hypertension Status: Chronic (4) Dyslipidemia Status: Chronic Reason for Consult Date of Consultation: 08/06/18 Reason for Consultation: Dyspnea on exertion, shortness of breath, previous tobacco user, hypertension History of Present Illness: The patient is a 72 year old M, nondiabetic, hypertensive, former smoker who quit around 10 years ago after a 1 to 2 pack/day for 40-year history of smoking, no known coronary disease, father of an acute myocardial infarction age 66, unfortunately is allergic to statins. The patient had bronchitis diagnosed about 3 weeks ago, went to the doctor about 2 weeks ago and was prescribed antibiotic and decongestant medications. When his symptoms did not improve, his shortness of breath and dyspnea on exertion began to worsen. Medical intention with his PCP Dr. Martinez, and apparently some laboratory exams were performed and he was urgently called to the emergency room while he was cutting his grass out in his front yard. Apparently his dimer and troponins were minimally elevated, and he was referred emergently to the [facility] ER.. The patient has complained of exertional chest pain and reports that his dyspnea on exertion has actually gotten worse over the last week or so despite his bronchitis resolving. Patient underwent a treadmill echocardiogram this morning in which he exercised 6 minutes and 45 seconds, got profoundly short of breath, and had evidence of mid anterior and apical hypokinesis at peak exercise. In addition he had dynamic inferior lateral ST segment depression. On further history he has a significant allergy to IV contrast dye, and unfortunately is unable to take statins. [] Past Medical History Allergies/Adverse Reactions: Allergies Iodine and Iodide Containing Produc Allergy (Verified 08/05/18 17:56) Itching Home Medications: Ambulatory Orders Medication Instructions Recorded Metoprolol Tartrate [Lopressor 12.5 mg PO BID 08/05/18 (beta laura)] Omeprazole 40 mg PO DAILY PRN PRN 08/05/18 Past Medical History (Chronic Problems): Chronic Problems Hypertension (Chronic) Dyslipidemia (Chronic) - *Family History Paternal History Items: DVT - DVT and PE, Heart Disease - HI at age of 61. Smoking Status: Former smoker Review of Systems - Review of Systems General: Denies: Fever, Night Sweats, Fatigue Cardiovascular: Reports: Chest Discomfort with Exertion, Chest Heaviness, Shortness of Breath, Shortness of Breath with Exertion. Denies: Chest Discomfort, Orthopnea, PND, Peripheral Edema, Palpitations, Lightheadedness, Dizziness, Near Syncope, Syncope Respiratory: Denies: Cough, Sputum Production, Hemoptysis Gastrointestinal: Denies: Hematemesis, Hematochezia, Melena Genitourinary: Denies: Dysuria, Hematuria Skin: Denies: Rash Subjectve: Patient sitting in bed, no acute distress. Objective: Vital Signs Temp Pulse Resp BP Pulse Ox 97.6 F L 90 16 120/71 96 08/06/18 15:03 08/06/18 15:26 08/06/18 15:03 08/06/18 15:03 08/06/18 15:03 Oxygen Delivery Method Room Air Weight: 195 lb 1.745 oz Body Mass Index (BMI) 25.8 Intake and Output for Last 24 Hours 08/04/18 08/05/18 08/06/18 23:59 23:59 23:59 Intake Total 1680 / 1680 Balance 1680 / 1680 General: Awake, Alert, Oriented x 3 HEENT: PERRL, EOMI, Sclera Non Icteric Neck: Supple, Good ROM, No Lymph Node Enlargement Lungs: Clear to auscultation Cardiovascular: Regular Rhythm, Normal S1, Normal S2, No Murmurs, No Rubs, No Gallops Murmur Murmur: Grade 2/6, Holosystolic Vascular: No Carotid Bruits, Normal Femoral Pulses, Normal Radial Pulses, Normal Dorsalis Pedal Pulse, Normal Posterior Tibial Pulses Abdomen: Bowel Sounds Present, Soft, Non Tender, No HSM, No Organomegaly Extremities: No Cyanosis, No Clubbing, No edema Neurological: No Focal Motor or Sensory Deficit 08/05/18 18:18: Troponin I 0.043 08/05/18 21:46: Troponin I 0.036 08/06/18 00:28: Troponin I 0.028 08/06/18 05:05: Sodium 140, Potassium 4.8, Chloride 107, Carbon Dioxide 26.0, Anion Gap 7, BUN 19 H, Creatinine 0.96, Est GFR (MDRD) Af Amer 99, Est GFR (MDRD) Non-Af 82, BUN/Creatinine Ratio 19.9, Glucose 147 H, Calcium 8.5, Triglycerides 111, Cholesterol 276 H, LDL Cholesterol 195 H, VLDL Cholesterol 22, HDL Cholesterol 59 08/06/18 05:05: WBC 13.4 H, RBC 5.03, Hgb 15.7, Hct 44.9, MCV 89.3, MCH 31.2, MCHC 35.0, RDW 12.5, RDW Differential 40.6, Plt Count 198, MPV 9.5, Immature Gran % (Auto) 0.600, Neut % (Auto) 87.8 H, Lymph % (Auto) 7.6 L, [place] % (Auto) 4.0, Eos % (Auto) 0.0, Baso % (Auto) 0.0, Absolute Neuts (auto) 11.7 H, Total Counted Not Reportable 08/06/18 05:05: PT 14.4, INR 1.1, APTT 30.0 08/06/18 05:05: Magnesium 2.2 Rhythm: EKG: Normal sinus rhythm, anterior T wave and ST segment changes. ECHO: Pending Stress Test: As above Cardiac Cath: PCI: CT Surgery: Holter monitor: EPS: PPM: CXR: Chest CT Scan: Assessment/Plan 1. Dyspnea on exertion: The patient's dyspnea on exertion combined with his substernal chest pressure may be an anginal equivalent, he has evidence of dynamic anterior ST segment changes, indeterminate troponin, and evidence of anterior septal and anterior apical hypokinesis by stress testing. I recommended the patient be loaded with 300 mg of Plavix, followed by 75 mg a day in addition to his baby aspirin 81 mg p.o. daily. I recommended that he undergo a left heart catheterization to confirm/deny the presence of significant coronary occlusive disease given his excessive smoking history in the past. In addition he has a additional risk factor given his age and his positive family history of his father dying of acute myocardial infarction at age 66. The risks/benefits of the procedure were thoroughly expanded the patient including specific attention to lack of on-site surgical back-up, and the patient is agreed to proceed. In addition we will obtain a 2D echo with Doppler to document his LV function, pulmonary pressures, and valvular status. The patient has no significant coronary occlusive disease he may have had a false positive stress test, and I would then refer him to his CTA for possible pulmonary embolism given his elevated d-dimer. The patient be prepared for IV contrast dye prophylaxis with IV Pepcid, IV Solu-Medrol, and IV Benadryl. 2. Hyperlipidemia: Unfortunately patient is unable to tolerate statins. Unfortunately his LDL is 195 and his HDL is 59. Recommend starting him on gemfibrozil 600 mg p.o. twice daily, and repeating lipid profile in 6 weeks time. 3. Thank you very much for the opportunity to participate in the cardiac care of your patient. Consultation time took place between 11 and 11:30 AM. Code Visit Inpatient E&M: 10263 Init Hosp L2
--- NOTE | 2018-08-06 23:46 | RAD_ITS ---
STUDY: X-RAY CHEST REASON FOR EXAM: Male, 72 years old. Shortness of breath TECHNIQUE: 1 view2 COMPARISON: August 05, 2018 FINDINGS: There continues to be a 3.9 x 1.4 cm oval-shaped density in the left upper lobe. There is no pneumonia or failure and no pleural effusions. The heart is within normal limits in size Normal visualized thoracic spine. Normal visualized ribs, clavicles, and shoulders. There is no demonstrated abnormality of the visualized soft tissue structures of the upper abdomen. RAD/Chest 1 View (Portable) IMPRESSION: No acute findings in the lungs. A 3.9 x 1.4 cm oval-shaped density in the left upper lobe. Looks benign and has not changed since yesterday's study. Further evaluation with a CT scan is suggested Electronically Signed: Prashant Hilliard MD at 6:43 EDT Tel , Service support ,
[2018-08-07] VITALS (27 sets, daily range): BP systolic 123–156; BP diastolic 73–95; PULSE 52–103; RESP 13–25; TEMP 36.6–36.9; O2SAT 95–98; BMI 25.7
[2018-08-07 00:29] LABS: Bacteria 0 SEEN /hpf (None Seen); Mucous, Urine 0 SEEN /hpf (<or=2+); Red Blood Cells-Urine 0 SEEN /hpf (0-5); Squamous Epithelial Cells - UA 0 SEEN /hpf (0-5); White Blood Cells 0 SEEN /hpf (0-5)
[2018-08-07 00:33] LABS: Color, Urine Yellow (Yellow); Glucose, Dipstick Normal (Normal); Ketone-Dipstick Negative (Negative); Leukocyte Esterase-Dipstick Negative /ul (Negative); Nitrite-Dipstick Negative (Negative); Occult Blood-Urine Negative /ul (Negative); Protein-Dipstick Negative (Negative); Urine Bilirubin Dipstick Negative (Negative); Urine Clarity Clear (Clear); Urine Urobilinogen Normal (Normal)
--- NOTE | 2018-08-07 05:00 | EKG12_ITS ---
Test Reason : AM EKG Blood Pressure : / mmHG Vent. Rate : 063 BPM Atrial Rate : 063 BPM P-R Int : 128 ms QRS Dur : 100 ms QT Int : 470 ms P-R-T Axes : 064 066 104 degrees QTc Int : 480 ms Normal sinus rhythm Prolonged QT Abnormal ECG When compared with ECG of 06-AUG-2018 05:46, MANUAL COMPARISON REQUIRED, DATA IS UNCONFIRMED Confirmed by TEMO ESTRELLA, DEBORAH ([id number]), video tape editor JOSE ANTONIO GARCIA ([id number]) on 08/13/2018 12:11:12 PM Referred By: DR LARKIN Confirmed By:DEBORAH PLASCENCIA MD
[2018-08-07 05:27] LABS: Absolute Lymphocyte Count 1.27 X10^3/ul (0.83-4.51); Absolute Neutrophil Count 12.4 X10^3/uL (2.0-7.7); Basophil# 0.01 X10^3/uL; Basophil% 0.1 % (0-1); Hematocrit 44.3 % (40-54); Hemoglobin 15.2 g/dl (13.0-16.5); Lymphocyte # 1.27 X10^3/ul (4.0); Lymphocyte % 8.7 % (19-41); Mean Corp Hgb Conc 34.3 g/gl (32-36); Mean Corpuscular Hgb 30.8 pg (27.0-32.0); Mean Corpuscular Volume 89.7 fL (80-94); Mean Platelet Vol. 9.7 fl (6.2-12.0); Monocyte# 0.98 X10^3/uL; Monocyte% 6.7 % (0-10); Neutrophil # 12.35 X10^3/uL (2.7-7.7); POSITIVE COUNT NO; POSITIVE DIFFERENTIAL NO; POSITIVE MORPHOLOGY NO; Platelet Count 196 K/mm3 (150-450); RBC Distribution Width CV 12.7 % (11.6-14.6); RBC Distribution Width SD 41.3 fl (35.1-43.9); Red Blood Count 4.94 M/mm3 (4.6-6.2); White Blood Count 14.7 K/mm3 (4.4-11.0)
[2018-08-07 05:32] LABS: International Normalized Ratio 1.2; Partial Thromboplast Time 27.7 Seconds (24.1-36.2)
[2018-08-07 05:41] LABS: Anion Gap 7 (5-15); BUN 26 mg/dL (7-18); BUN/Creat Ratio 25.2 RATIO (10-20); Calcium,Total 8.5 mg/dL (8.5-10.1); Chloride 108 mmol/L (98-107); Creatinine, Serum 1.03 mg/dL (0.70-1.30); EST Glomerular Filtration Rate 75 mL/min (>60); Est Glom Filt Rate - Afr Amer 91 mL/min (>60); Estimated Creatinine Clearance 69.06 ml/min; Glucose 144 mg/dL (74-106); Potassium 4.3 mmol/L (3.5-5.1); Sodium Level 139 mmol/L (136-145)
[2018-08-07] MEDS: Aspirin E.C. 81 MG Tablet PO (06:28)
[2018-08-07] MEDS: 0.9% NaCl Peripheral Flush Adult/Peds IV ×2 (06:28→08:10)
[2018-08-07] MEDS: Metoprolol Tartrate 25 MG Tablet 12.5 MG PO ×2 (06:28→21:53)
[2018-08-07] MEDS: Clopidogrel Bisulfate 75 MG Tablet PO (06:31)
--- NOTE | 2018-08-07 08:41 | PCM.PN.HOSP ---
Patient Problems: Active and Suspected Problems Subacute bronchitis (Acute) Atypical chest pain (Acute) Dyspnea on exertion (Acute) Subjective: Patient with no acute events overnight per self and per nursing report. He denies any further chest discomfort since presentation. He does state that he does become dyspneic with exertion and this has been over the last 1.5 weeks since bronchitis but does concern him. Patient remains amenable to cardiac catheterization today and has been pretreated with IV Solu-Medrol, Benadryl and Pepcid the evening prior with plans for repeat Solu-Medrol and Benadryl this morning. Patient denies fevers, chills, nausea, emesis, abdominal pain, chest pain or dyspnea. Objective: Physical Examination: General: awake, alert, oriented x 3 and cooperative, seated upright in bed in no apparent distress. Skin: normal color, turgor, no icterus, cyanosis. HEENT: AT/NC, EOMI, PERRLA, MMM. Lungs: CTA bilaterally, moderate effort, moderate decrease BL bases, no rales, ronchi or wheezing. Heart: Regular rate and rhythm; no gallop, rub audible. Abdomen: soft, NTTP, ND, normal BS. Extremities: no cyanosis, clubbing, or edema. Neurological: patient awake, alert, oriented x 3; cognitive function intact; pupils equally reactive to light and accomodation; cranial nerves II-XII grossly normal, moving all 4 extremities, no focal deficits, strength mildly globally decreased. Psychiatric: affect appears normal, no acute evidence of depressive or anxiety feelings. Vitals/I&O's: Vital Signs Temp Pulse Resp BP Pulse Ox 97.9 F 57 L 16 149/87 H 98 08/07/18 06:24 08/07/18 07:18 08/07/18 06:24 08/07/18 06:28 08/07/18 06:24 Oxygen Delivery Method Room Air Weight: 195 lb 1.745 oz Body Mass Index (BMI) 25.8 Intake and Output for Last 24 Hours 08/05/18 08/06/18 08/07/18 23:59 23:59 23:59 Intake Total 2530 / 2530 428 / 428 Output Total 2 / 2 Balance 2530 / 2530 426 / 426 Laboratory Results 08/06/18 05:05: Free T4 0.92 08/06/18 05:05: Magnesium 2.2 08/06/18 23:50: Urine Color Yellow, Urine Clarity Clear, Urine pH 5.0, Ur Specific [place] 1.020, Urine Protein Negative, Urine Glucose (UA) Normal, Urine Ketones Negative, Urine Occult Blood Negative, Urine Nitrite Negative, Urine Bilirubin Negative, Urine Urobilinogen Normal, Ur Leukocyte Esterase Negative, Urine RBC 0 SEEN, Urine WBC 0 SEEN, Ur Squamous Epith Cells 0 SEEN, Urine Bacteria 0 SEEN, Urine Mucus 0 SEEN 08/07/18 05:05: WBC 14.7 H, RBC 4.94, Hgb 15.2, Hct 44.3, MCV 89.7, MCH 30.8, MCHC 34.3, RDW 12.7, RDW Differential 41.3, Plt Count 196, MPV 9.7, Immature Gran % (Auto) 0.500, Neut % (Auto) 84.0 H, Lymph % (Auto) 8.7 L, [place] % (Auto) 6.7, Eos % (Auto) 0.0, Baso % (Auto) 0.1, Absolute Neuts (auto) 12.4 H, Absolute Lymphs (auto) 1.27, Total Counted Not Reportable 08/07/18 05:05: Sodium 139, Potassium 4.3, Chloride 108 H, Carbon Dioxide 24.0, Anion Gap 7, BUN 26 H, Creatinine 1.03, Estim Creat Clear Calc 69.06, Est GFR (MDRD) Af Amer 91, Est GFR (MDRD) Non-Af 75, BUN/Creatinine Ratio 25.2 H, Glucose 144 H, Calcium 8.5 08/07/18 05:05: PT 15.0 H, INR 1.2, APTT 27.7 Current Medications Aspirin (Ecotrin) 81 mg PO DAILY@0800 [facility] Last Admin: 08/07/18 06:28 Dose: 81 mg Clopidogrel Bisulfate (Plavix) 75 mg PO DAILY [facility] Last Admin: 08/07/18 06:31 Dose: 75 mg Enoxaparin Sodium (Lovenox) 40 mg SC DAILY [facility] Last Admin: 08/06/18 09:09 Dose: Not Given Sodium Chloride () 1,000 mls @ 0 mls/hr IV .Q0M [facility] Metoprolol Tartrate (Lopressor (Beta Cecilia)) 12.5 mg PO BID [facility] Last Admin: 08/07/18 06:28 Dose: 12.5 mg Nitroglycerin (Nitrostat) 0.4 mg SUBLINGUAL Q5M PRN PRN Reason: CHEST PAIN Pantoprazole Sodium (Protonix) 40 mg PO DAILY PRN PRN Reason: HEARTBURN Sodium Chloride () 5 - 15 ml IV UD PRN PRN Reason: SALINE FLUSH Last Admin: 08/07/18 08:10 Dose: 10 ml Medical Necessity - Tobacco Use Smoking Status: Former smoker Assessment/Plan All Active Problems Subacute bronchitis (Acute) Atypical chest pain (Acute) Dyspnea on exertion (Acute) The patient is a 72 y/o M w/ PMHx: HTN, HLD, Former Tobacco use who presents to the [facility] ED on 08/05/18 with history of recent acute bronchitis x 1.5 weeks with ongoing dyspnea but then onset atypical chest discomfort with outpatient evaluation w/ no acute findings on CXR, elevated D-dimer with follow-up unremarkable VQ scan with eventual referral to the ED. (1) Chest Pain: EKG in ED nonspecific ST-T wave changes but no acute evidence of ischemia with sinus rhythm, CXR w/ PCP prior to presentation with 1.47 m x 3.9 similar density in the lateral aspect of the left upper lobe suggestive of a fibrocalcific scarring with recommend CT correlation outpatient, initial trop 0.043 with repeat trending 0.036-->0.028. Admitted to PCU, placed on a monitored bed with serial cardiac enzymes and EKGs. 08/06/18 AM cardiac stress testing performed per film projector operator abnormal. FLP w/ triglycerides 111, total cholesterol 276, LDL 195, VLDL 22, HDL 59. Mag 2.2. Cardiology consulted with 08/07/18 cardiac catheterization with pretreatment with IV Solu-Medrol, Pepcid, Benadryl the evening prior and this morning as well. Will await cardiac catheterization results to determine next step in plan of care. (2) Incidental CXR findings: CXR w/ 1.47 m x 3.9 similar density in the lateral aspect of the left upper lobe suggestive of a fibrocalcific scarring, upon discharge will recommend CT correlation per primary care direction. (3) Hypertension: Continue home regimen including metoprolol, PRN hydralazine. (4) Hyperlipidemia: Notes familial, statin intolerant, FLP with triglycerides 111, total cholesterol 276, LDL 195, VLDL 22, HDL 59. (5) Subclinical Hyperthyroidism: TSH mildly decreased 0.24 with normal free T4, subclinical, given acute presentation and recent acute bronchitis would recommend follow-up thyroid function studies in 6 to 8 weeks. (6) Former Tobacco Use: 40 pack year history, encourage continued cessation. (7) GERD: PPI. (8) DVT prophylaxis: SCDs, Lovenox. Code Visit Inpatient E&M: 09574 Subs Hosp L2
--- NOTE | 2018-08-07 08:44 | PN_ITS ---
Patient Problems: Active and Suspected Problems Subacute bronchitis (Acute) Atypical chest pain (Acute) Dyspnea on exertion (Acute) Subjective: Patient with no acute events overnight per self and per nursing report. He denies any further chest discomfort since presentation. He does state that he does become dyspneic with exertion and this has been over the last 1.5 weeks since bronchitis but does concern him. Patient remains amenable to cardiac catheterization today and has been pretreated with IV Solu-Medrol, Benadryl and Pepcid the evening prior with plans for repeat Solu-Medrol and Benadryl this morning. Patient denies fevers, chills, nausea, emesis, abdominal pain, chest pain or dyspnea. Objective: Physical Examination: General: awake, alert, oriented x 3 and cooperative, seated upright in bed in no apparent distress. Skin: normal color, turgor, no icterus, cyanosis. HEENT: AT/NC, EOMI, PERRLA, MMM. Lungs: CTA bilaterally, moderate effort, moderate decrease BL bases, no rales, ronchi or wheezing. Heart: Regular rate and rhythm; no gallop, rub audible. Abdomen: soft, NTTP, ND, normal BS. Extremities: no cyanosis, clubbing, or edema. Neurological: patient awake, alert, oriented x 3; cognitive function intact; pupils equally reactive to light and accomodation; cranial nerves II-XII grossly normal, moving all 4 extremities, no focal deficits, strength mildly globally decreased. Psychiatric: affect appears normal, no acute evidence of depressive or anxiety feelings. Vitals/I&O's: Vital Signs Temp Pulse Resp BP Pulse Ox 97.9 F 57 L 16 149/87 H 98 08/07/18 06:24 08/07/18 07:18 08/07/18 06:24 08/07/18 06:28 08/07/18 06:24 Oxygen Delivery Method Room Air Weight: 195 lb 1.745 oz Body Mass Index (BMI) 25.8 Intake and Output for Last 24 Hours 08/05/18 08/06/18 08/07/18 23:59 23:59 23:59 Intake Total 2530 / 2530 428 / 428 Output Total 2 / 2 Balance 2530 / 2530 426 / 426 Laboratory Results 08/06/18 05:05: Free T4 0.92 08/06/18 05:05: Magnesium 2.2 08/06/18 23:50: Urine Color Yellow, Urine Clarity Clear, Urine pH 5.0, Ur Specific [place] 1.020, Urine Protein Negative, Urine Glucose (UA) Normal, Urine Ketones Negative, Urine Occult Blood Negative, Urine Nitrite Negative, Urine Bilirubin Negative, Urine Urobilinogen Normal, Ur Leukocyte Esterase Negative, Urine RBC 0 SEEN, Urine WBC 0 SEEN, Ur Squamous Epith Cells 0 SEEN, Urine Bacteria 0 SEEN, Urine Mucus 0 SEEN 08/07/18 05:05: WBC 14.7 H, RBC 4.94, Hgb 15.2, Hct 44.3, MCV 89.7, MCH 30.8, MCHC 34.3, RDW 12.7, RDW Differential 41.3, Plt Count 196, MPV 9.7, Immature [place] % (Auto) 0.500, Neut % (Auto) 84.0 H, Lymph % (Auto) 8.7 L, [place] % (Auto) 6.7, Eos % (Auto) 0.0, Baso % (Auto) 0.1, Absolute Neuts (auto) 12.4 H, Absolute Lymphs (auto) 1.27, Total Counted Not Reportable 08/07/18 05:05: Sodium 139, Potassium 4.3, Chloride 108 H, Carbon Dioxide 24.0, Anion Gap 7, BUN 26 H, Creatinine 1.03, Estim Creat Clear Calc 69.06, Est GFR (MDRD) Af Amer 91, Est GFR (MDRD) Non-Af 75, BUN/Creatinine Ratio 25.2 H, Glucose 144 H, Calcium 8.5 08/07/18 05:05: PT 15.0 H, INR 1.2, APTT 27.7 Current Medications Aspirin (Ecotrin) 81 mg PO DAILY@0800 [facility] Last Admin: 08/07/18 06:28 Dose: 81 mg Clopidogrel Bisulfate (Plavix) 75 mg PO DAILY [facility] Last Admin: 08/07/18 06:31 Dose: 75 mg Enoxaparin Sodium (Lovenox) 40 mg SC DAILY [facility] Last Admin: 08/06/18 09:09 Dose: Not Given Sodium Chloride () 1,000 mls @ 0 mls/hr IV .Q0M [facility] Metoprolol Tartrate (Lopressor (Beta Cecilia)) 12.5 mg PO BID [facility] Last Admin: 08/07/18 06:28 Dose: 12.5 mg Nitroglycerin (Nitrostat) 0.4 mg SUBLINGUAL Q5M PRN PRN Reason: CHEST PAIN Pantoprazole Sodium (Protonix) 40 mg PO DAILY PRN PRN Reason: HEARTBURN Sodium Chloride () 5 - 15 ml IV UD PRN PRN Reason: SALINE FLUSH Last Admin: 08/07/18 08:10 Dose: 10 ml Medical Necessity - Tobacco Use Smoking Status: Former smoker Assessment/Plan All Active Problems Subacute bronchitis (Acute) Atypical chest pain (Acute) Dyspnea on exertion (Acute) The patient is a 72 y/o M w/ PMHx: HTN, HLD, Former Tobacco use who presents to the [facility] ED on 08/05/18 with history of recent acute bronchitis x 1.5 weeks with ongoing dyspnea but then onset atypical chest discomfort with outpatient evaluation w/ no acute findings on CXR, elevated D-dimer with follow-up unremarkable VQ scan with eventual referral to the ED. (1) Chest Pain: EKG in ED nonspecific ST-T wave changes but no acute evidence of ischemia with sinus rhythm, CXR w/ PCP prior to presentation with 1.47 m x 3.9 similar density in the lateral aspect of the left upper lobe suggestive of a fibrocalcific scarring with recommend CT correlation outpatient, initial trop 0.043 with repeat trending 0.036-->0.028. Admitted to PCU, placed on a monitored bed with serial cardiac enzymes and EKGs. 08/06/18 AM cardiac stress testing performed per doughnut maker abnormal. FLP w/ triglycerides 111, total cholesterol 276, LDL 195, VLDL 22, HDL 59. Mag 2.2. Cardiology consulted with 08/07/18 cardiac catheterization with pretreatment with IV Solu-Medrol, Pepcid, Benadryl the evening prior and this morning as well. Will await cardiac catheterization results to determine next step in plan of care. (2) Incidental CXR findings: CXR w/ 1.47 m x 3.9 similar density in the lateral aspect of the left upper lobe suggestive of a fibrocalcific scarring, upon discharge will recommend CT correlation per primary care direction. (3) Hypertension: Continue home regimen including metoprolol, PRN hydralazine. (4) Hyperlipidemia: Notes familial, statin intolerant, FLP with triglycerides 111, total cholesterol 276, LDL 195, VLDL 22, HDL 59. (5) Subclinical Hyperthyroidism: TSH mildly decreased 0.24 with normal free T4, subclinical, given acute presentation and recent acute bronchitis would recommend follow-up thyroid function studies in 6 to 8 weeks. (6) Former Tobacco Use: 40 pack year history, encourage continued cessation. (7) GERD: PPI. (8) DVT prophylaxis: SCDs, Lovenox. Code Visit Inpatient E&M: 86112 Subs Hosp L2
[2018-08-07] MEDS: DiphenhydrAMINE 25 MG Capsule 50 MG PO (09:19)
[2018-08-07] MEDS: MethylPREDNISolone 125 MG/2 ML Vial IV (09:20)
--- NOTE | 2018-08-07 09:29 | NURSING ---
Report called to receiving ZEINAB Sarabia in laboratory monitor. Rosendo ARRIOLA
--- NOTE | 2018-08-07 11:12 | CL.I_ITS ---
Patient Name: CARLEE LEE Study Date: 08/07/2018 Performing: Dennys Herman MD Ht: 72.83 inches 185 cm : 1945 Wt: 196.21 lbs 89 kg Age: 72 Gender: male BSA: 2.13 PROCEDURE(S) PERFORMED [id number]/LV [id number] W OR WO PTCA, SINGLE CORONARY ARTERY CLINICAL PROFILE AND CO-MORBIDITIES Indications: ACS > 24 hrs Heart Failure: None Stress/Imaging Date: 08/06/2018 Stress Echocardiogram: Positive Intermediate Risk Angina Classification Anginal Classification w/in 2 Weeks: CCS III CAD Presentations: Unstable angina. Other: Dyspnea on exertion Comorbidities/Risk Factors: Hypertension Dyslipidemia Family History of Premature CAD CONCLUSIONS Normal Left Ventricular systolic function Perserved Left Ventricular systolic function with normal EDP Non obstructive coronary arteries Successful PTCA/SANTI mid LAD with a 2.25 x 16 Promus Synergy, followed immediately upstream with a 2.2 5 x 28 Promus Synergy. 2nd stent post dilated proximally with a 2.5 x 8 NC Balloon; 85%-->0%, no dis section. No additional stenting performed on proximal LAD as this eccentric, <30% stenosis appeared the same p ost PCI as it was pre PCI, and did not want to jeaopardize retrgrade dissection into LM or LCX. Succesful Mynx Control closure of RFA. RECOMMENDATIONS Referred for immediate PCI Highly recommend quitting all tobacco products Follow up with primary nursing admin Risk factor modification ASA Indefinitley Plavix for at least 12 months Routine post interventional care Refer for Outpatient Cardiac Rehab Manual sheath removal per protocol Follow up with Dr. Herman Medical management of LCX and RCA given dual competitive flow blood supply into inferior wall and lac k of ischemia on stress testing of inferior wall. DESCRIPTION OF PROCEDURE The patient arrived to the procedure lab. The risks and benefits of the procedure as well as a full d escription of our services here and lack of surgical backup were fully explained to the patient and/o r their significant other prior to the catheterization. The Timeout was completed, verifying the vic ect patient and procedure. The patient's procedural site was prepped and draped in the usual fashion. Local anesthetic was given subcutaneously to right groin region with Lidocaine 2%. Using a modified Seldinger technique, arterial access was obtained via the right femoral artery, a 4Fr sheath was inse rted. Left Coronary Artery selective angiography was performed in multiple views using a 4 Fr. JL5 c atheter. Right Coronary Artery selective angiography was then performed in multiple views using a 4 F r. 3DRC catheter. Left Ventriculography was performed in PCAK projection using a 4 Fr. Pigtail cathete r. LV to AO pullback pressures were then recordedThe images were reviewed and options discussed. A decision was then made to proceed with an Intervention, IVUS or other adjunct procedure. Arterial sheath was exchanged for a 6 Fr 45cm Sheath. EBU 3.75 Guide catheter was inserted and e ngaged into the LCA. BMW Guide wire was advanced to the LAD. BMW into Diagonal Guide wire was inserte d as a carmen wire Emerge 2.00x12 Balloon catheter was inserted. PTCA balloon inflated at 8 atms for 1 2 secs. PTCA balloon inflated at 6 atms for 8 secs. PTCA balloon inflated at 6 atms for 9 secs. Angio gram performed post balloon dilatation. Synergy 2.25x16 Drug Eluting stent was inserted. Angiogram pe rformed post stent deployment. Synergy 2.25x20 Drug Eluting stent was inserted. Drug Eluting stent wa s removed intact, failed to cross lesion Emerge 2.00x12 Balloon catheter was inserted. PTCA balloon i nflated at 8 atms for 9 secs. PTCA balloon inflated at 8 atms for 10 secs. PTCA balloon inflated at 6 atms for 8 secs. Angiogram performed post balloon dilatation. Synergy 2.25x28 Drug Eluting stent was inserted. Angiogram performed post stent deployment. NC Emerge 2.50x8 Balloon catheter was inserted. PTCA balloon inflated at 12 atms for 7 secs. PTCA balloon inflated at 12 atms for 8 sec s. Angiogram performed post balloon dilatation. Arterial sheath was exchanged for a 6 Fr Sheath. Cont rast was injected through the sheath and the Right Iliac and Femoral artery were assessed for possibl e closure device. The arterial sheath was pulled and a Mynx closure device was deployed for hemostas is CORONARY ANGIOGRAPHY DOMINANCE: Co- Dominant LEFT HEART ASSESSMENT Left Ventricular Ejection Fraction: by LV Gram 65 % Normal Left Ventricular systolic function LVEDP: 12 mmHg Normal Left Ventricular End Diastolic Pressure Normal LV wall motion LEFT MAIN: 30 eccentric % Stenosis LEFT ANTERIOR DESCENDING ARTERY: PROX LAD: 30 eccentric % Stenosis MID LAD: 85 % Stenosis DIAGONAL 1: Ostial - Mild luminal irregularities less than 30% CIRCUMFLEX ARTERY: MID CIRC: Mild luminal irregularities less than 30% DISTAL CIRC: Moderate luminal irregularities up to 50%, Competitive flow from R to L OM 1: Proximal - Mild luminal irregularities less than 30% RIGHT CORONARY ARTERY: DISTAL RCA: Collateral flow from L to R COLLATERAL FLOW: Distal RCA: Collateral flow from L to R INTERVENTION INFORMATION LESION SITE: LAD (Mid) Lesion Complexity: High/C, lesion at bifurcation: No, thrombus present: No, lesion length: 44 mm, cul prit lesion: Yes Pre Stenosis: 85 % Pre intervention PHILIP flow: 3 PROCEDURE: Drug Eluting Stent with pre and post dilatation Post Stenosis: 0 % Post intervention PHILIP flow: 3 COMPLICATIONS No Complications PROCEDURE MEDICATIONS Versed 1 mg IV Oxygen: 2 L/min via nasal cannula Heparin 6000 unit(s) IV 08/07/2018 10:09:07 Nitro 200 mcg IC 08/07/2018 10:11:40 Nitro 200 mcg IC 08/07/2018 10:11:40 Nitro 200 mcg IC 08/07/2018 10:22:14 Nitro 200 mcg IC 08/07/2018 10:34:27 IV Bolus: .9 NaCl 550 ml total 08/07/2018 10:10:40 SUMMARY OF HEMODYNAMIC DATA Time AIR REST ECG 09:37:56 AO 177/78 (114) SA 09:53:45 LV 172/-14, 9 10:01:33 LV 182/-15, 14 10:01:40 LVp 178/-18, 12 10:02:32 AOp 173/71 (109) 10:02:37 11:07:19 Signed By Dennys Herman MD On 08/07/2018 11:11:27 Dennys Herman MD
[2018-08-07 11:41] LABS: ACT Activated Clotting Time 202 sec (74-137)
[2018-08-07] MEDS: 0.9% Normal Saline 1,000 ML 150 ML IV (12:00)
--- NOTE | 2018-08-07 13:04 | CRPHASE1 ---
Patient Communication PHII Cardiac Rehab Discussed with Patient:: Yes Guide to Cardiac Rehab Given to Patient:: Yes Cardiac Rehab Facility Choice List Given to Patient:: Yes - [facility] Choice Program [facility] CR PHII:: Communication Given to CR, Refer to [facility] Refer Phase II Cardiac Rehab:: Yes Sessions:: 36 sessions - 3 days/wk, 12 weeks Phase I Charge:: Level I - Education Risk Factors/Lifestyle Smoking Status: Former smoker - quit 10 years ago Hx Hypertension: Yes Hx Dyslipidemia: Yes Hx Obesity: Yes Height: 6 ft 1 in Weight:: 195 lb BMI: 25.7 Stress: Recent Risk Factor for Sedentary Lifestyle: Moderate Risk Family History: Heart Disease Laboratory Values: Cardiac Rehab Phase I Labs Triglycerides 111 mg/dL (-199) 08/06/18 05:05 Cholesterol 276 mg/dL (200) H 08/06/18 05:05 LDL Cholesterol 195 mg/dL (0-130) H 08/06/18 05:05 HDL Cholesterol 59 mg/dL (40-) 08/06/18 05:05 Phase I Education Given On:: [place], Nutrition, Antiplatelet medication, CHF, Smoking cessation Issues Affecting Care:: None Knowledge of Condition:: Yes Learning Preferences: Verbal, Written, Audio/Visual, Demonstration Medical/Surgical History Hypertension:: Yes Dyslipidemia:: Yes Discharge/Home/Social Eval Marital Status: Patient Lives With:: Cardiac Rehabilitation Info Cardiac Rehabilitation Program Information: Cardiac Rehabilitation is important for patients like you who are recovering from a heart problem. Cardiac rehabilitation programs are recognized as integral to the continued care of the patient with coronary heart disease. The cardiac rehabilitation program is designed to optimize a patient's physical, psychological, and social functioning. Health director of healthcare systems work in cardiac rehabilitation programs and assist you with getting the treatments you need to get stronger and healthier - like exercise, healthy eating habits, and medications. Cardiac rehabilitation has been show to help people with heart problems live longer and have better life enjoyment than people who do not go to cardiac rehabilitation. Please contact the Cardiac Rehabilitation Program at [facility] at in two weeks if you have not heard from them.
--- NOTE | 2018-08-07 13:08 | CRPHASE1_ITS ---
Patient Communication PHII Cardiac Rehab Discussed with Patient:: Yes Guide to Cardiac Rehab Given to Patient:: Yes Cardiac Rehab Facility Choice List Given to Patient:: Yes - [facility] Choice Program [facility] CR PHII:: Communication Given to CR, Refer to [facility] Refer Phase II Cardiac Rehab:: Yes Sessions:: 36 sessions - 3 days/wk, 12 weeks Phase I Charge:: Level I - Education Risk Factors/Lifestyle Smoking Status: Former smoker - quit 10 years ago Hx Hypertension: Yes Hx Dyslipidemia: Yes Hx Obesity: Yes Height: 6 ft 1 in Weight:: 195 lb BMI: 25.7 Stress: Recent Risk Factor for Sedentary Lifestyle: Moderate Risk Family History: Heart Disease Laboratory Values: Cardiac Rehab Phase I Labs Triglycerides 111 mg/dL (-199) 08/06/18 05:05 Cholesterol 276 mg/dL (200) H 08/06/18 05:05 LDL Cholesterol 195 mg/dL (0-130) H 08/06/18 05:05 HDL Cholesterol 59 mg/dL (40-) 08/06/18 05:05 Phase I Education Given On:: [place], Nutrition, Antiplatelet medication, CHF, Smoking cessation Issues Affecting Care:: None Knowledge of Condition:: Yes Learning Preferences: Verbal, Written, Audio/Visual, Demonstration Medical/Surgical History Hypertension:: Yes Dyslipidemia:: Yes Discharge/Home/Social Eval Marital Status: Patient Lives With:: Cardiac Rehabilitation Info Cardiac Rehabilitation Program Information: Cardiac Rehabilitation is important for patients like you who are recovering from a heart problem. Cardiac rehabilitation programs are recognized as integral to the continued care of the patient with coronary heart disease. The cardiac rehabilitation program is designed to optimize a patient's physical, psychological, and social functioning. Health home day care provider work in cardiac rehabilitation programs and assist you with getting the treatments you need to get stronger and healthier - like exercise, healthy eating habits, and medications. Cardiac rehabilitation has been show to help people with heart problems live longer and have better life enjoyment than people who do not go to cardiac rehabilitation. Please contact the Cardiac Rehabilitation Program at [facility] at in two weeks if you have not heard from them.
--- NOTE | 2018-08-07 13:08 | CRPH1.INSTRU ---
General Education CAD and cardiac anatomy and function:: Patient communicates acknowledgment, Needs reinforcement Explanation of diagnoses and procedures:: Patient communicates acknowledgment, Needs reinforcement Sign/Symptoms of VA:: Patient communicates acknowledgment, Needs reinforcement Antiplatelet therapy: Patient communicates acknowledgment, Not instructed Proper use of NTG-SL: Patient communicates acknowledgment, Needs reinforcement Emergency procedures and activation of EMS: Patient communicates acknowledgment, Needs reinforcement Compliance of all prescribed medications: Patient communicates acknowledgment, Needs reinforcement Smoking Patient Nicotine/Smoking Risk Factors Are:: Non-smoker - quit 10 years ago Recommendations Include:: Previous smoker; encourage continued cessation Nicotine/Smoking Response Code:: Patient communicates acknowledgment, Family communicates acknowledgment Dyslipidemia Patient Dyslipidemia Risk Factors Are:: Total Cholesterol, Triglycerides, HDL, LDL Recommendations Include:: Lipid profile not available, Reviewed NCEP/ATP guidelines, Therapeutic Lifestyle Change dietary guidelines Dyslipidemia Response Code:: Patient communicates acknowledgment, Needs reinforcement Overweight/Obesity Patient Overweight/Obesity Risk Factors Are:: BMI Normal [24-29 & > 65 years old] Recommendations Include:: Weight loss of 5-10%, Reduced calorie diet, Exercise 5-7 times/week Overweight/Obesity:: Patient communicates acknowledgment, Needs reinforcement Hypertension Recommendations Include:: Maintain BP <130/85, DASH dietary guidelines, Decrease/maintain normal body weight, Moderation of ETOH Hypertension:: Patient communicates acknowledgment, Needs reinforcement Heart Disease Patient Heart Disease Risk Factors Are:: Family history of heart disease < 65 years old Recommendations Include:: Educated family members of their risk, Educated family members of importance of prevention of heart disease Heart Disease Response Code:: Patient communicates acknowledgment, Family communicates acknowledgment, Needs reinforcement Diabetes Patient Diabetes Risk Factors Are:: No documented hx of diabetes Diabetes:: Not instructed Metabolic Syndrome Metabolic Syndrome Response Code:: Not instructed Sedentary Patient Sedentary Risk Factors Are:: Lack of regular exercise Recommendations Include:: Aerobic exercise 5-7 times/week for 20-30 minutes continuously, Benefits of regular exercise, Discussed home walking program, Monitored Outpatient Cardiac Rehab Sedentary Response Code:: Patient communicates acknowledgment, Not instructed Stress Recommendations Include:: Identification of stressors, and assessment of coping skills, Stress management techniques Stress Response Code:: Patient communicates acknowledgment, Needs reinforcement
--- NOTE | 2018-08-07 13:17 | CASEMGMT ---
RN CM PASTRY FINISHER CM to room to meet with patient for initial transition planning/care coordination assessment. RN CHACE introduced self and role at [facility]. Pt voices understanding and consents to assessment at this time. Pt resting in bed in no distress at this time. Pt is A/O at this time and answers all questions appropriately. Care providers, pharmacy, and demographics verified at this time. PCP: Juan Specialists: Dr Alatorre--opthalmologist, An Ramos--Dr Arellano Preferred Pharmacy: [facility] Insurance: [employer] Prescription Benefit: Yes Living Will/HPOA: Has both LW and HCPOA who is his , Abigail FRANCEOK: Living Arrangements: Lives with in 2 story home w/multi-levels. Denies difficulty with stairs. Independent w/ADL's. and pt share home mgmt tasks. Transportation: Pt states drives self and states no transportation concerns at this time. able to drive pt home on d/c DME: Denies using any DME and denies needs. HHC/SNF: No history of either. No needs identified. Pt wishes to return home and states has no concerns with going home at time of discharge. CM to follow for any discharge planning/needs. Pt voices no further concerns/needs at this time. Advised pt to ask for CM if any further questions/concerns/needs arise. Voices understanding. PLAN: Home w/spousal support and discharge plans in place. Elisabet HUMPHREY RN, CM
[2018-08-07] MEDS: Gemfibrozil 600 MG Tablet PO (19:01)
[2018-08-07] MEDS: Nitroglycerin Oint 1 INCH PACKET TRANSDERM. ×2 (19:01→23:13)
[2018-08-08] VITALS (13 sets, daily range): BP systolic 88–135; BP diastolic 57–98; PULSE 54–82; RESP 16–24; TEMP 36.6; O2SAT 21–97
[2018-08-08 05:18] LABS: Hematocrit 39.5 % (40-54); Hemoglobin 13.5 g/dl (13.0-16.5); Mean Corp Hgb Conc 34.2 g/gl (32-36); Mean Corpuscular Hgb 31.2 pg (27.0-32.0); Mean Corpuscular Volume 91.2 fL (80-94); Mean Platelet Vol. 9.8 fl (6.2-12.0); Platelet Count 164 K/mm3 (150-450); RBC Distribution Width CV 12.5 % (11.6-14.6); RBC Distribution Width SD 41.2 fl (35.1-43.9); Red Blood Count 4.33 M/mm3 (4.6-6.2); White Blood Count 15.9 K/mm3 (4.4-11.0)
[2018-08-08] MEDS: Nitroglycerin Oint 1 INCH PACKET TRANSDERM. (05:21)
[2018-08-08 05:27] LABS: Scan Indicated on CBC? Y/N NO
[2018-08-08 05:44] LABS: Anion Gap 8 (5-15); BUN 29 mg/dL (7-18); BUN/Creat Ratio 29.4 RATIO (10-20); Calcium,Total 7.9 mg/dL (8.5-10.1); Chloride 111 mmol/L (98-107); Creatinine, Serum 0.98 mg/dL (0.70-1.30); EST Glomerular Filtration Rate 79 mL/min (>60); Est Glom Filt Rate - Afr Amer 95 mL/min (>60); Estimated Creatinine Clearance 74.74 ml/min; Glucose 137 mg/dL (74-106); Potassium 4.2 mmol/L (3.5-5.1); Sodium Level 142 mmol/L (136-145)
[2018-08-08] MEDS: Gemfibrozil 600 MG Tablet PO (07:21)
[2018-08-08] MEDS: Losartan Potassium 25 MG Tablet PO (08:55)
[2018-08-08] MEDS: Aspirin E.C. 81 MG Tablet PO (08:55)
[2018-08-08] MEDS: Metoprolol Tartrate 25 MG Tablet 12.5 MG PO (08:55)
[2018-08-08] MEDS: Clopidogrel Bisulfate 75 MG Tablet PO (08:55)
[2018-08-08 09:18] LABS: Hemoglobin A1c 5.9 % (4.2-6.3)
--- NOTE | 2018-08-08 09:23 | PCM.DC ---
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 Your food should be the consistency of: Regular Your liquids should be the consistency of: Regular/Thin Discharge Activity: - - See additional instructions for activity parameters. Call your doctor if your incision/area has: Continuous Slow Oozing, Sudden Increased Bleeding, Increased Pain/ Swelling, Increased Redness, Foul Smelling Discharge, Swelling at the incision site Call your doctor if you observe: Fever of 101 or Higher, Inability to urinate, Inability to have a bowel movement, Shortness of breath, Dizziness, Fainting spells, Chest pain, Uncontrolled pain Instructions: Understanding Coronary Artery Disease (CAD), Follow-up Appointment After Percutaneous Coronary Intervention (PCI), Lifestyle Management After Percutaneous Coronary Intervention (PCI), Exercising Safely After Percutaneous Coronary Intervention (PCI), Prediabetes, Healthy Meals for Diabetes, Diabetes: Understanding Carbohydrates, Eating Out When You Have Diabetes, Eating Heart-Healthy Food: Using the DASH Plan Additional Instructions: ADDITIONAL INSTRUCTIONS: (1) Please continue diet and lifestyle changes/modifications with planned follow-up HgBA1c assessment per your primary care physician. Currently your level is only mildly elevated and consistent with prediabetes. (2) During admission your thyroid level was assessed and noted to be subclinical with decreased TSH but normal free T4. We recommend given recent acute presentation and bronchitis, to have follow-up thyroid function studies in 6 to 8 weeks. (3) During admission, CXR was obtained with a 1.47 m x 3.9 density in the lateral aspect of the left upper lobe suggestive of a fibrocalcific scarring. We recommend outpatient follow-up CT correlation per primary care direction. Allergies/Adverse Reactions: Allergies Iodine and Iodide Containing Produc Allergy (Verified 08/05/18 17:56) Itching petrolatum,white [From Petroleum Jelly] Adverse Reaction (Verified 08/07/18 13:08) Other Stufwed-Boh-Iok Reductase Inhibitor Adverse Reaction (Verified 08/07/18 13:08) Other Medications to take at Discharge Omeprazole 40 mg PO DAILY PRN PRN 08/05/18 Aspirin E.C. [Ecotrin] 81 mg PO DAILY@0800 #30 tablet 08/08/18 Clopidogrel Bisulfate [Plavix] 75 mg PO DAILY #30 tablet 08/08/18 Gemfibrozil [Lopid] 600 mg PO BIDAC #60 tablet 08/08/18 Losartan Potassium [Cozaar] 25 mg PO DAILY #30 tablet 08/08/18 Metoprolol Tartrate [Lopressor (beta laura)] 12.5 mg PO BID #60 tablet 08/08/18 The following prescriptions were given: Aspirin E.C. [Ecotrin] 81 mg PO DAILY@0800 #30 tablet Clopidogrel Bisulfate [Plavix] 75 mg PO DAILY #30 tablet Gemfibrozil [Lopid] 600 mg PO BIDAC #60 tablet Losartan Potassium [Cozaar] 25 mg PO DAILY #30 tablet Metoprolol Tartrate [Lopressor (beta laura)] 12.5 mg PO BID #60 tablet Orders to be completed after discharge: Phase II, Outpatient Cardiac Rehab Location: None Selected Primary Care Physician: Fox Martinez Chi, MD [Primary Care Provider] - Please follow up with your Primary Care Physician in: Follow-up within 3-5 days. Test Results: Test results from this visit will be discussed in further detail at your follow-up appointment, if applicable. Please Follow Up With: Dennys Herman MD When: Follow-up per Dr. Herman direction or within 1-2 week. Proposed Discharge Date: 08/08/18
--- NOTE | 2018-08-08 09:31 | DCINST_ITS ---
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 Your food should be the consistency of: Regular Your liquids should be the consistency of: Regular/Thin Discharge Activity: - - See additional instructions for activity parameters. Call your doctor if your incision/area has: Continuous Slow Oozing, Sudden Increased Bleeding, Increased Pain/ Swelling, Increased Redness, Foul Smelling Discharge, Swelling at the incision site Call your doctor if you observe: Fever of 101 or Higher, Inability to urinate, Inability to have a bowel movement, Shortness of breath, Dizziness, Fainting spells, Chest pain, Uncontrolled pain Instructions: Understanding Coronary Artery Disease (CAD), Follow-up Appointment After Percutaneous Coronary Intervention (PCI), Lifestyle Management After Percutaneous Coronary Intervention (PCI), Exercising Safely After Percutaneous Coronary Intervention (PCI), Prediabetes, Healthy Meals for Diabe glynn, Diabetes: Understanding Carbohydrates, Eating Out When You Have Diabetes, Eating Heart-Healthy Food: Using the DASH Plan Additional Instructions: ADDITIONAL INSTRUCTIONS: (1) Please continue diet and lifestyle changes/modifications with planned follow-up HgBA1c assessment per your primary care physician. Currently your level is only mildly elevated and consistent with prediabetes. (2) During admission your thyroid level was assessed and noted to be subclinical with decreased TSH but normal free T4. We recommend given recent acute presentation and bronchitis, to have follow-up thyroid function studies in 6 to 8 weeks. (3) During admission, CXR was obtained with a 1.47 m x 3.9 density in the lateral aspect of the left upper lobe suggestive of a fibrocalcific scarring. We recommend outpatient follow-up CT correlation per primary care direction. Allergies/Adverse Reactions: Allergies Iodine and Iodide Containing Produc Allergy (Verified 08/05/18 17:56) Itching petrolatum,white [From Petroleum Jelly] Adverse Reaction (Verified 08/07/18 13:08) Other Gkiktxb-Nkt-Hmi Reductase Inhibitor Adverse Reaction (Verified 08/07/18 13:08) Other Medications to take at Discharge Omeprazole 40 mg PO DAILY PRN PRN 08/05/18 Aspirin E.C. [Ecotrin] 81 mg PO DAILY@0800 #30 tablet 08/08/18 Clopidogrel Bisulfate [Plavix] 75 mg PO DAILY #30 tablet 08/08/18 Gemfibrozil [Lopid] 600 mg PO BIDAC #60 tablet 08/08/18 Losartan Potassium [Cozaar] 25 mg PO DAILY #30 tablet 08/08/18 Metoprolol Tartrate [Lopressor (beta laura)] 12.5 mg PO BID #60 tablet 08/08/18 The following prescriptions were given: Aspirin E.C. [Ecotrin] 81 mg PO DAILY@0800 #30 tablet Clopidogrel Bisulfate [Plavix] 75 mg PO DAILY #30 tablet Gemfibrozil [Lopid] 600 mg PO BIDAC #60 tablet Losartan Potassium [Cozaar] 25 mg PO DAILY #30 tablet Metoprolol Tartrate [Lopressor (beta laura)] 12.5 mg PO BID #60 tablet Orders to be completed after discharge: Phase II, Outpatient Cardiac Rehab Location: None Selected Primary Care Physician: Fox Martinez Chi, MD [Primary Care Provider] - Please follow up with your Primary Care Physician in: Follow-up within 3-5 days. Test Results: Test results from this visit will be discussed in further detail at your follow- up appointment, if applicable. Please Follow Up With: Dennys Herman MD When: Follow-up per Dr. Herman direction or within 1-2 week. Proposed Discharge Date: 08/08/18
--- NOTE | 2018-08-08 09:33 | PCM.DC.SUM ---
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) (3) Prediabetes mellitus type II (HgbA1c 5.9%) (4) Hypertension (5) Hyperlipidemia (6) Subclinical Hyperthyroidism w/ TSH mildly decreased 0.24 with normal free T4 (Recommend follow-up thyroid function studies in 6 to 8 weeks) (7) Former Tobacco Use (8) Overweight (9) GERD (10) Recent Acute Bronchitis, Resolved, Prior to admission - Secondary Discharge Diagnosis Chronic Problems (Last Updated 08/07/18 @ 16:33 by Leticia Velasco) Atherosclerotic heart disease of [place] coronary artery without angina pectoris (Chronic) Successful PTCA/SANTI mid LAD with a 2.25 x 16 Promus Synergy, followed immediately upstream with a 2.25 x 28 Promus Synergy 08/07/18 per [facility]N @ [facility] Stented coronary artery (Chronic 08/07/18) Successful PTCA/SANTI mid LAD with a 2.25 x 16 Promus Synergy, followed immediately upstream with a 2.25 x 28 Promus Synergy 08/07/18 @ [facility] per DJN Hypertension (Chronic) Dyslipidemia (Chronic) Hospital Course and Treatment Dr. Herman Cardiology Operations: None Procedures: 2-D Echocardiogram, Cardiac catheterization, EKG Summary of Care Provided: The patient is a 72 y/o M w/ PMHx: HTN, HLD, Former Tobacco use who presented to the [facility] ED on 08/05/18 with history of recent acute bronchitis x 1.5 weeks with ongoing dyspnea but then onset atypical chest discomfort with outpatient evaluation w/ no acute findings on CXR, elevated D-dimer with follow-up unremarkable VQ scan with eventual referral to the ED. EKG in ED nonspecific ST-T wave changes but no acute evidence of ischemia with sinus rhythm, CXR w/ PCP prior to presentation with 1.47 m x 3.9 similar density in the lateral aspect of the left upper lobe suggestive of a fibrocalcific scarring with recommend CT correlation outpatient, initial trop 0.043 with repeat trending 0.036-->0.028. Admitted to PCU, placed on a monitored bed with serial cardiac enzymes and EKGs. 08/06/18 AM cardiac stress testing performed per phlebotomy technologist abnormal. FLP w/ triglycerides 111, total cholesterol 276, LDL 195, VLDL 22, HDL 59. Mag 2.2. Cardiology consulted with 08/07/18 cardiac catheterization with pretreatment with IV Solu-Medrol, Pepcid, Benadryl the evening prior and morning prior as well. Will await cardiac catheterization results to determine next step in plan of care. Cardiac catheterization with noted normal LV systolic fx, preserved LV systolic fx with normal EDP, successful PTCA/SANTI mid LAD x 2 with successful mynx closure of RFA. Patient transitioned following to the ICU with cardiology recommendation for ASA indefinitely, plavix x 12 months at least, planned medical management of the LCx and RCA given dual competitive flow blood supply into the interior wall and lack of ischemia on stress testing of inferior wall. ECHO with EF 55 to 60%, stage I diastolic dysfunction, mild MDI, trivial TBI, RVSP 24 mmHg, mild TVI, mild left ear, no appreciable changes from 2015 ECHO. Of note, recommendation upon discharge to follow-up regarding noted CXR findings in addition to noted TSH mildly decreased 0.24 with normal free T4, subclinical, given acute presentation and recent acute bronchitis recommended follow-up thyroid function studies in 6 to 8 weeks. Also noted elevated BS, HgbA1c obtained, noted 5.9% with recommendation for lifestyle and diet alterations with trending per PCP. DAY OF DISCHARGE PROGRESS NOTE: Subjective: Patient without acute event overnight per self and nursing report. Patient feeling well, no chest discomfort and eager for discharge. No bleeding from the R groin. HgbA1c 5.9%, prediabetic with diet and lifestyle recommendations given. Patient denies fever, chills, nausea, emesis, abdominal pain, recurrent chest pain or dyspnea. Patient agreeable to discharge to home. Patient will be discharged with follow-up with primary care physician within 3-5 days in addition to follow-up with Cardiology. Objective: T 97.8, heart rate 75, BP 122/98, respiratory rate 23, 96% on room air. Physical Examination: General: awake, alert, oriented x 3 and cooperative, seated upright in the ICU bed in no apparent distress. Skin: normal color, turgor, no icterus, cyanosis, R groin well appearing, dressing in place. HEENT: AT/NC, EOMI, PERRLA, MMM. Lungs: CTA bilaterally, moderate effort, moderate decrease BL bases, no rales, ronchi or wheezing. Heart: Regular rate and rhythm; no gallop, rub audible. Abdomen: soft, NTTP, ND, normal BS. Extremities: no cyanosis, clubbing, or edema. Neurological: patient awake, alert, oriented x 3; cognitive function intact; pupils equally reactive to light and accomodation; cranial nerves II-XII grossly normal, moving all 4 extremities, no focal deficits, strength mildly globally decreased. Psychiatric: affect appears normal, no acute evidence of depressive or anxiety feelings. Assessment and Plan: Please see hospital summary above. Patient Problems: Active and Suspected Problems (Last Updated 08/07/18 @ 16:33 by Leticia Velasco) Subacute bronchitis (Acute) Atypical chest pain (Acute) Dyspnea on exertion (Acute) - Physical Exam Vital Signs Temp Pulse Resp BP Pulse Ox 97.8 F 75 23 H 122/98 H 96 08/08/18 04:00 08/08/18 09:00 08/08/18 09:00 08/08/18 09:00 08/08/18 09:00 Oxygen Delivery Method Room Air Weight: 195 lb 0.017 oz Body Mass Index (BMI) 25.8 Intake and Output for Last 24 Hours 08/06/18 08/07/18 08/08/18 23:59 23:59 23:59 Intake Total 2530 / 2530 2186 / 2186 240 / 240 Output Total 1452 / 1452 325 / 325 Balance 2530 / 2530 734 / 734 -85 / -85 Laboratory Tests Past 24 Hrs 08/07/18 08/08/18 08/08/18 10:48 05:10 05:10 WBC 15.9 H RBC 4.33 L Hgb 13.5 Hct 39.5 L MCV 91.2 MCH 31.2 MCHC 34.2 RDW 12.5 RDW Differential 41.2 Plt Count 164 MPV 9.8 Activated Clotting Time 202 H Sodium 142 Potassium 4.2 Chloride 111 H Carbon Dioxide 23.0 Anion Gap 8 BUN 29 H Creatinine 0.98 Estim Creat Clear Calc 74.74 Est GFR (MDRD) Af Amer 95 Est GFR (MDRD) Non-Af 79 BUN/Creatinine Ratio 29.4 H Glucose 137 H Hemoglobin A1c Calcium 7.9 L 08/08/18 05:10 WBC RBC Hgb Hct MCV MCH MCHC RDW RDW Differential Plt Count MPV Activated Clotting Time Sodium Potassium Chloride Carbon Dioxide Anion Gap BUN Creatinine Estim Creat Clear Calc Est GFR (MDRD) Af Amer Est GFR (MDRD) Non-Af BUN/Creatinine Ratio Glucose Hemoglobin A1c 5.9 Calcium Discharge Activity: - - See additional instructions for activity parameters. Call your doctor if your incision/area has: Continuous Slow Oozing, Sudden Increased Bleeding, Increased Pain/ Swelling, Increased Redness, Foul Smelling Discharge, Swelling at the incision site Call your doctor if you observe: Fever of 101 or Higher, Inability to urinate, Inability to have a bowel movement, Shortness of breath, Dizziness, Fainting spells, Chest pain, Uncontrolled pain Home Medications: Medications to take at Discharge Omeprazole 40 mg PO DAILY PRN PRN 08/05/18 Aspirin E.C. [Ecotrin] 81 mg PO DAILY@0800 #30 tablet 08/08/18 Clopidogrel Bisulfate [Plavix] 75 mg PO DAILY #30 tablet 08/08/18 Gemfibrozil [Lopid] 600 mg PO BIDAC #60 tablet 08/08/18 Losartan Potassium [Cozaar] 25 mg PO DAILY #30 tablet 08/08/18 Metoprolol Tartrate [Lopressor (beta laura)] 12.5 mg PO BID #60 tablet 08/08/18 Following Prescrptions Were Given to Patient: Aspirin E.C. [Ecotrin] 81 mg PO DAILY@0800 #30 tablet Clopidogrel Bisulfate [Plavix] 75 mg PO DAILY #30 tablet Gemfibrozil [Lopid] 600 mg PO BIDAC #60 tablet Losartan Potassium [Cozaar] 25 mg PO DAILY #30 tablet Metoprolol Tartrate [Lopressor (beta laura)] 12.5 mg PO BID #60 tablet Other Amb Orders: Phase II, Outpatient Cardiac Rehab Location: None Selected Primary Care Physician: Fox Martinez Chi, MD [Primary Care Provider] - Please follow up with your Primary Care Physician in: Follow-up within 3-5 days. Please Follow Up With: Dennys Herman MD When: Follow-up per Dr. Herman direction or within 1-2 week. Patient Instructions: Prediabetes, Healthy Meals for Diabetes, Diabetes: Understanding Carbohydrates, Eating Out When You Have Diabetes, Eating Heart-Healthy Food: Using the DASH Plan, Understanding Coronary Artery Disease (CAD), Follow-up Appointment After Percutaneous Coronary Intervention (PCI), Lifestyle Management After Percutaneous Coronary Intervention (PCI), Exercising Safely After Percutaneous Coronary Intervention (PCI) Disposition: Home Minutes spent on discharge:: 35 Patient Condition:: Fair Medical Necessity - Tobacco Use Smoking Status: Former smoker - quit 10 years ago Meaningful Use Info Meaningful Use Diagnoses (Choose all that apply): None applicable Code Visit Inpatient E&M: 54487 Disch Hosp
--- NOTE | 2018-08-08 09:37 | DS.PCM_ITS ---
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) (3) Prediabetes mellitus type II (HgbA1c 5.9%) (4) Hypertension (5) Hyperlipidemia (6) Subclinical Hyperthyroidism w/ TSH mildly decreased 0.24 with normal free T4 (Recommend follow-up thyroid function studies in 6 to 8 weeks) (7) Former Tobacco Use (8) Overweight (9) GERD (10) Recent Acute Bronchitis, Resolved, Prior to admission - Secondary Discharge Diagnosis Chronic Problems (Last Updated 08/07/18 @ 16:33 by Leticia Velasco) Atherosclerotic heart disease of [place] coronary artery without angina pectoris (Chronic) Successful PTCA/SANTI mid LAD with a 2.25 x 16 Promus Synergy, followed immedia tely upstream with a 2.25 x 28 Promus Synergy 08/07/18 per DJN @ [facility] Stented coronary artery (Chronic 08/07/18) Successful PTCA/SANTI mid LAD with a 2.25 x 16 Promus Synergy, followed immediately upstream with a 2.25 x 28 Promus Synergy 08/07/18 @ [facility] per DJN Hypertension (Chronic) Dyslipidemia (Chronic) Hospital Course and Treatment Dr. Herman Cardiology Operations: None Procedures: 2-D Echocardiogram, Cardiac catheterization, EKG Summary of Care Provided: The patient is a 72 y/o M w/ PMHx: HTN, HLD, Former Tobacco use who presented to the [facility] ED on 08/05/18 with history of recent acute bronchitis x 1.5 weeks with ongoing dyspnea but then onset atypical chest discomfort with outpatient garth luation w/ no acute findings on CXR, elevated D-dimer with follow-up unremarkable VQ scan with eventual referral to the ED. EKG in ED nonspecific ST- T wave changes but no acute evidence of ischemia with sinus rhythm, CXR w/ PCP prior to presentation with 1.47 m x 3.9 similar density in the lateral aspect of the left upper lobe suggestive of a fibrocalcific scarring with recommend CT correlation outpatient, initial trop 0.043 with repeat trending 0.036-->0.028. Admitted to PCU, placed on a monitored bed with serial cardiac enzymes and EKGs. 08/06/18 AM cardiac stress testing performed per tag machine operator abnormal. FLP w/ triglycerides 111, total cholesterol 276, LDL 195, VLDL 22, HDL 59. Mag 2.2. Cardiology consulted with 08/07/18 cardiac catheterization with pretreatment with IV Solu-Medrol, Pepcid, Benadryl the evening prior and morning prior as well. Will await cardiac catheterization results to determine next step in plan of care. Cardiac catheterization with noted normal LV systolic fx, preserved LV systolic fx with normal EDP, successful PTCA/SANTI mid LAD x 2 with successful mynx closure of RFA. Patient transitioned following to the ICU with cardiology recommendation for ASA indefinitely, plavix x 12 months at least, planned medical management of the LCx and RCA given dual competitive flow blood supply into the interior wall and lack of ischemia on stress testing of inferior wall. ECHO with EF 55 to 60%, stage I diastolic dysfunction, mild MDI, trivial TBI, RVSP 24 mmHg, mild TVI, mild left ear, no appreciable changes from 2015 ECHO. Of note, recommendation upon discharge to follow-up regarding noted CXR findings in addition to noted TSH mildly decreased 0.24 with normal free T4, subclinical, given acute presentation and recent acute bronchitis recommended follow-up thy roid function studies in 6 to 8 weeks. Also noted elevated BS, HgbA1c obtained, noted 5.9% with recommendation for lifestyle and diet alterations with trending per PCP. DAY OF DISCHARGE PROGRESS NOTE: Subjective: Patient without acute event overnight per self and nursing report. Patient feeling well, no chest discomfort and eager for discharge. No bleeding from the R groin. HgbA1c 5.9%, prediabetic with diet and lifestyle recommendations given. Patient denies fever, chills, nausea, emesis, abdominal pain, recurrent chest pain or dyspnea. Patient agreeable to discharge to home. Patient will be discharged with follow-up with primary care physician within 3-5 days in addition to follow-up with Cardiology. Objective: T 97.8, heart rate 75, BP 122/98, respiratory rate 23, 96% on room air. Physical Examination: General: awake, alert, oriented x 3 and cooperative, seated upright in the ICU bed in no apparent distress. Skin: normal color, turgor, no icterus, cyanosis, R groin well appearing, dressing in place. HEENT: AT/NC, EOMI, PERRLA, MMM. Lungs: CTA bilaterally, moderate effort, moderate decrease BL bases, no rales, ronchi or wheezing. Heart: Regular rate and rhythm; no gallop, rub audible. Abdomen: soft, NTTP, ND, normal BS. Extremities: no cyanosis, clubbing, or edema. Neurological: patient awake, alert, oriented x 3; cognitive function intact; pupils equally reactive to light and accomodation; cranial nerves II-XII grossly normal, moving all 4 extremities, no focal deficits, strength mildly globally decreased. Psychiatric: affect appears normal, no acute evidence of depressive or anxiety feelings. Assessment and Plan: Please see hospital summary above. Patient Problems: Active and Suspected Problems (Last Updated 08/07/18 @ 16:33 by Leticia Velasco) Subacute bronchitis (Acute) Atypical chest pain (Acute) Dyspnea on exertion (Acute) - Physical Exam Vital Signs Temp Pulse Resp BP Pulse Ox 97.8 F 75 23 H 122/98 H 96 08/08/18 04:00 08/08/18 09:00 08/08/18 09:00 08/08/18 09:00 08/08/18 09:00 Oxygen Delivery Method Room Air Weight: 195 lb 0.017 oz Body Mass Index (BMI) 25.8 Intake and Output for Last 24 Hours 08/06/18 08/07/18 08/08/18 23:59 23:59 23:59 Intake Total 2530 / 2530 2186 / 2186 240 / 240 Output Total 1452 / 1452 325 / 325 Balance 2530 / 2530 734 / 734 -85 / -85 Laboratory Tests Past 24 Hrs 08/07/18 08/08/18 08/08/18 10:48 05:10 05:10 WBC 15.9 H RBC 4.33 L Hgb 13.5 Hct 39.5 L MCV 91.2 MCH 31.2 MCHC 34.2 RDW 12.5 RDW Differential 41.2 Plt Count 164 MPV 9.8 Activated Clotting Time 202 H Sodium 142 Potassium 4.2 Chloride 111 H Carbon Dioxide 23.0 Anion Gap 8 BUN 29 H Creatinine 0.98 Estim Creat Clear Calc 74.74 Est GFR (MDRD) Af Amer 95 Est GFR (MDRD) Non-Af 79 BUN/Creatinine Ratio 29.4 H Glucose 137 H Hemoglobin A1c Calcium 7.9 L 08/08/18 05:10 WBC RBC Hgb Hct MCV MCH MCHC RDW RDW Differential Plt Count MPV Activated Clotting Time Sodium Potassium Chloride Carbon Dioxide Anion Gap BUN Creatinine Estim Creat Clear Calc Est GFR (MDRD) Af Amer Est GFR (MDRD) Non-Af BUN/Creatinine Ratio Glucose Hemoglobin A1c 5.9 Calcium Discharge Activity: - - See additional instructions for activity parameters. Call your doctor if your incision/area has: Continuous Slow Oozing, Sudden Increased Bleeding, Increased Pain/ Swelling, Increased Redness, Foul Smelling Discharge, Swelling at the incision site Call your doctor if you observe: Fever of 101 or Higher, Inability to urinate, Inability to have a bowel movement, Shortness of breath, Dizziness, Fainting spells, Chest pain, Uncontrolled pain Home Medications: Medications to take at Discharge Omeprazole 40 mg PO DAILY PRN PRN 08/05/18 Aspirin E.C. [Ecotrin] 81 mg PO DAILY@0800 #30 tablet 08/08/18 Clopidogrel Bisulfate [Plavix] 75 mg PO DAILY #30 tablet 08/08/18 Gemfibrozil [Lopid] 600 mg PO BIDAC #60 tablet 08/08/18 Losartan Potassium [Cozaar] 25 mg PO DAILY #30 tablet 08/08/18 Metoprolol Tartrate [Lopressor (beta laura)] 12.5 mg PO BID #60 tablet 08/08/18 Following Prescrptions Were Given to Patient: Aspirin E.C. [Ecotrin] 81 mg PO DAILY@0800 #30 tablet Clopidogrel Bisulfate [Plavix] 75 mg PO DAILY #30 tablet Gemfibrozil [Lopid] 600 mg PO BIDAC #60 tablet Losartan Potassium [Cozaar] 25 mg PO DAILY #30 tablet Metoprolol Tartrate [Lopressor (beta laura)] 12.5 mg PO BID #60 tablet Other Amb Orders: Phase II, Outpatient Cardiac Rehab Location: None Selected Primary Care Physician: Fox Martinez Chi, MD [Primary Care Provider] - Please follow up with your Primary Care Physician in: Follow-up within 3-5 days. Please Follow Up With: Dennys Herman MD When: Follow-up per Dr. Herman direction or within 1-2 week. Patient Instructions: Prediabetes, Healthy Meals for Diabetes, Diabetes: Understanding Carbohydrates, Eating Out When You Have Diabetes, Eating Heart- Healthy Food: Using the DASH Plan, Understanding Coronary Artery Disease (CAD), Follow-up Appointment After Percutaneous Coronary Intervention (PCI), Lifestyle Management After Percutaneous Coronary Intervention (PCI), Exercising Safely After Percutaneous Coronary Intervention (PCI) Disposition: Home Minutes spent on discharge:: 35 Patient Condition:: Fair Medical Necessity - Tobacco Use Smoking Status: Former smoker - quit 10 years ago Meaningful Use Info Meaningful Use Diagnoses (Choose all that apply): None applicable Code Visit Inpatient E&M: 62618 Disch Hosp
--- NOTE | 2018-08-08 10:00 | EKG12_ITS ---
Test Reason : AM EKG Blood Pressure : / mmHG Vent. Rate : 058 BPM Atrial Rate : 058 BPM P-R Int : 126 ms QRS Dur : 100 ms QT Int : 482 ms P-R-T Axes : 057 064 095 degrees QTc Int : 473 ms Sinus bradycardia with sinus arrhythmia Otherwise normal ECG When compared with ECG of 07-AUG-2018 11:58, MANUAL COMPARISON REQUIRED, DATA IS UNCONFIRMED Confirmed by MEAGAN CLAYTON ([id number]), makeup editor JOSE ANTONIO GARCIA ([id number]) on 08/13/2018 12:54:04 PM Referred By: Fox Martinez Confirmed By:KAVIN CLAYTON
--- NOTE | 2018-08-08 10:00 | PCM.PN.CARD ---
Subjectve: Patient seen and examined, reports that he is feeling markedly better after his angioplasty yesterday. No chest pain or angina. Telemetry negative. EKG shows normal sinus rhythm, no acute changes. Right groin is clean/dry/intact, no thrills, bruits or hematoma. Hemoglobin and creatinine are within nominal limits. Objective: Vital Signs Temp Pulse Resp BP Pulse Ox 97.8 F 75 23 H 122/98 H 96 08/08/18 04:00 08/08/18 09:00 08/08/18 09:00 08/08/18 09:00 08/08/18 09:00 Oxygen Delivery Method Room Air Weight: 195 lb 0.017 oz Body Mass Index (BMI) 25.8 Intake and Output for Last 24 Hours 08/06/18 08/07/18 08/08/18 23:59 23:59 23:59 Intake Total 2530 / 2530 2186 / 2186 240 / 240 Output Total 1452 / 1452 325 / 325 Balance 2530 / 2530 734 / 734 -85 / -85 General: Awake, Alert, Oriented x 3 HEENT: PERRL, EOMI, Sclera Non Icteric Neck: Supple, Good ROM, No Lymph Node Enlargement Lungs: Clear to auscultation Cardiovascular: Regular Rhythm, Normal S1, Normal S2, No Murmurs, No Rubs, No Gallops Vascular: No Carotid Bruits, Normal Femoral Pulses, Normal Radial Pulses, Normal Dorsalis Pedal Pulse, Normal Posterior Tibial Pulses Abdomen: Bowel Sounds Present, Soft, Non Tender, No HSM, No Organomegaly Extremities: No Cyanosis, No Clubbing, No edema Neurological: No Focal Motor or Sensory Deficit 08/08/18 05:10: WBC 15.9 H, RBC 4.33 L, Hgb 13.5, Hct 39.5 L, MCV 91.2, MCH 31.2, MCHC 34.2, RDW 12.5, RDW Differential 41.2, Plt Count 164, MPV 9.8 08/08/18 05:10: Sodium 142, Potassium 4.2, Chloride 111 H, Carbon Dioxide 23.0, Anion Gap 8, BUN 29 H, Creatinine 0.98, Est GFR (MDRD) Af Amer 95, Est GFR (MDRD) Non-Af 79, BUN/Creatinine Ratio 29.4 H, Glucose 137 H, Calcium 7.9 L 08/08/18 05:10: Hemoglobin A1c 5.9 Rhythm: EKG: ECHO: Stress Test: Cardiac Cath: PCI: CT Surgery: Holter monitor: EPS: PPM: CXR: Chest CT Scan: Medical Necessity - Tobacco Use Smoking Status: Former smoker - quit 10 years ago Assessment/Plan 1. Dyspnea on exertion: Patient underwent diagnostic coronary angiogram yesterday which demonstrated a critical long lesion in his mid LAD at the bifurcation of a diagonal branch. There is also a mild to moderate degree of calcification in his LAD and left circumflex systems. He had codominant supply of his inferior wall between his left circumflex and right coronary artery which demonstrated competitive flow from both sides. His EF was found to be normal. Patient underwent successful angioplasty and drug-eluting stenting to his LAD receiving a 2.25X 16 followed upstream immediately with a 2.25 ex-28 Promus stent, postdilated proximally with a 2.5 mm non-compliant balloon. He had some minimal nonobstructive disease of his proximal LAD which was left for medical management. Patient today's feeling much better since his angioplasty. Would recommend baby aspirin and Plavix for life given his other coronary artery disease. He will be discharged home and follow-up with Dr. Herman in 4 to 6 weeks time. In addition he will be enrolled in cardiac rehab. If the patient has recurrent chest pain symptoms and has recurrent in-stent restenosis I would recommend him for bypass surgery given the small caliber nature of his vessels which would preclude additional stenting inside the original stents. 2. Hyperlipidemia: Unfortunately patient is unable to tolerate statins. Unfortunately his LDL is 195 and his HDL is 59. Recommend starting him on gemfibrozil 600 mg p.o. twice daily, and repeating lipid profile in 6 weeks time. 3. Thank you very much for the opportunity to participate in the cardiac care of your patient. Patient may be discharged home. Code Visit Inpatient E&M: 32763 Subs Hosp L2
== END 2018-08-08 09:50 | disposition home or self-care (01) | DRG 247 ==
LOC: ED 18:57 → PCU 20:07 → ICU 08-07 12:36 → PCU 08-07 13:01 → ICU 08-07 21:18
PROVIDERS: Internal Medicine Cardiovascular Disease; Admitting Provider Internal Medicine; Emergency Provider Emergency Medicine; Family Provider Family Medicine Geriatric Medicine; PCP Family Medicine Geriatric Medicine; Visit Provider Family Medicine
DX: I25.10 Atherosclerotic heart disease of native coronary artery without angina pectoris (principal); J98.4 Other disorders of lung; R73.03 Prediabetes; I10 Essential (primary) hypertension; E78.5 Hyperlipidemia, unspecified; E05.90 Thyrotoxicosis, unspecified without thyrotoxic crisis or storm; Z87.891 Personal history of nicotine dependence; E66.3 Overweight; K21.9 Gastro-esophageal reflux disease without esophagitis; R06.02 Shortness of breath; Z68.25 Body mass index [BMI] 25.0-25.9, adult
CPT/HCPCS: 36415; 71045; 71046; 78582; 80048; 80061; 81001; 82550; 83036; 83735; 83874; 83880; 84439; 84443; 84484; 85025; 85027; 85347; 85379; 85610; 85730; 92928; 93005; 93017; 93306; 93350; 93458; 99152; 99153; 99282; A9540; A9567; C1760; J7030; Q9957; Q9967; A4216; C1725; C1769; C1874; C1887; C1894; C8928; C9600

== ENCOUNTER → 2018-08-12 | Outpatient (CLI) | payer MEDICARE, SELFPAY ==
[2018-08-05 20:34] VITALS: BMI 25.8
[2018-08-07 13:07] VITALS: BMI 25.7
[2018-08-12 12:53] LABS: Absolute Lymphocyte Count 1.53 X10^3/ul (0.83-4.51); Absolute Neutrophil Count 8.7 X10^3/uL (2.0-7.7); Basophil# 0.02 X10^3/uL; Basophil% 0.2 % (0-1); Eosinophil# 0.44 X10^3/uL; Eosinophils% 3.7 % (0-5); Hemoglobin 15.3 g/dl (13.0-16.5); Lymphocyte # 1.53 X10^3/ul (4.0); Lymphocyte % 12.7 % (19-41); Mean Corpuscular Hgb 31.6 pg (27.0-32.0); Monocyte# 1.16 X10^3/uL; Monocyte% 9.6 % (0-10); Neutrophil # 8.73 X10^3/uL (2.7-7.7); Neutrophil % 72.5 % (47-70); Platelet Count 197 K/mm3 (150-450); RBC Distribution Width CV 12.9 % (11.6-14.6); RBC Distribution Width SD 43.8 fl (35.1-43.9); Red Blood Count 4.84 M/mm3 (4.6-6.2)
[2018-08-12 13:00] LABS: POSITIVE COUNT NO; POSITIVE DIFFERENTIAL NO; POSITIVE MORPHOLOGY NO
[2018-08-12 13:01] LABS: BUN 23 mg/dL (7-18); Creatinine, Serum 1.29 mg/dL (0.70-1.30); Glucose 132 mg/dL (74-106)
[2018-08-12 13:02] LABS: ALB/GLOB Ratio 0.8 RATIO (0.9-2.4); AST(SGOT) 15 U/L (15-37); Alanine Aminotransfer ALT/SGPT 34 U/L (16-61); Albumin, Serum 3.3 g/dL (3.2-5.0); Alkaline Phosphatase 60 U/L (45-117); Anion Gap 8 (5-15); BUN/Creat Ratio 17.8 RATIO (10-20); Calcium,Total 8.8 mg/dL (8.5-10.1); Chloride 103 mmol/L (98-107); EST Glomerular Filtration Rate 58 mL/min (>60); Est Glom Filt Rate - Afr Amer 70 mL/min (>60); Globulin 3.9 g/dL (2.2-4.2); Magnesium 2.2 mg/dL (1.6-2.6); Potassium 4.2 mmol/L (3.5-5.1); Protein, Total 7.2 g/dL (6.4-8.2); Sodium Level 133 mmol/L (136-145)
== END | disposition home or self-care (01) ==
LOC: POLAB3 10:38
PROVIDERS: Family Provider Family Medicine Geriatric Medicine; PCP Family Medicine Geriatric Medicine; Visit Provider Family Medicine Geriatric Medicine
DX: F05 Delirium due to known physiological condition (principal); F29 Unspecified psychosis not due to a substance or known physiological condition
CPT/HCPCS: 36415; 80053; 83735; 85025

== ENCOUNTER → 2018-08-19 | Outpatient (CLI) | payer MEDICARE, SELFPAY ==
[2018-08-05 20:34] VITALS: BMI 25.8
[2018-08-07 13:07] VITALS: BMI 25.7
--- NOTE | 2018-08-19 13:06 | PCM.CR.HP2 ---
CR - History & Physical - General Arrival date:: 08/19/18 Arrival time:: 12:00 Date of Referral:: 08/07/18 Date of CR Evaluation:: 08/19/18 Referring Physician: DR. ZHENG HIGH Primary Diagnosis: PTCA, PCI W/STENTING - History of Present Cardiac Event Onset Date: Enter Onset Date of cardiac illnesses in Comment field below PTCA or coronary stenting:: Yes - 08/07/2018 Type of Symptoms:: SHORTNESS OF BREATH FROM BRONCHITIS, SEEN BY SEW ON OPERATOR AND FOUND LAD OCCUSION. Interventions with present event:: HEART CATH, PCI STENT Were there any complications?: NONE - Medications Home Medications: Ambulatory Orders Medication Instructions Recorded Omeprazole 40 mg PO DAILY PRN PRN 08/05/18 Aspirin E.C. [Ecotrin] 81 mg PO DAILY@0800 #30 tablet 08/08/18 Clopidogrel Bisulfate [Plavix] 75 mg PO DAILY #30 tablet 08/08/18 Gemfibrozil [Lopid] 600 mg PO BIDAC #60 tablet 08/08/18 Losartan Potassium [Cozaar] 25 mg PO DAILY #30 tablet 08/08/18 Metoprolol Tartrate [Lopressor 12.5 mg PO BID #60 tablet 08/08/18 (beta laura)] - Allergies Allergies/Adverse Reactions: Allergies Iodine and Iodide Containing Produc Allergy (Verified 08/18/18 17:06) Itching petrolatum,white [From Petroleum Jelly] Adverse Reaction (Verified 08/18/18 17:06) Other Cdleayt-Jeo-Tdo Reductase Inhibitor Adverse Reaction (Verified 08/18/18 17:06) Other - Sleep Disorder Evaluation Hx of Sleep Apnea: Yes Do you snore loudly (louder than talking or can be heard through closed doors)?: No Do you often feel tired/ fatigued/ sleepy during daytime?: No Has anyone observed you stop breathing during sleep?: No History of Hypertension (for STOP score): Yes STOP Results: Negative Advanced Directives - Advanced Directives Power of Audio Production Instructor: Yes Living Will: Yes Advance Directives Information Provided: No Advance Directives on File: Yes DNR Order?:: No - MOLST See MOLST form: No Past Medical History - Past Medical Illness Medical History: Past Medical History (Last Updated 08/19/18 @ 13:13 by Jez Morgan, DIE BAKER, OTHER SPORTS OFFICIAL, BS) Atherosclerotic heart disease of [place] coronary artery without angina pectoris (Chronic) I25.10 Successful PTCA/SANTI mid LAD with a 2.25 x 16 Promus Synergy, followed immediately upstream with a 2.25 x 28 Promus Synergy 08/07/18 per DJN @ [facility] Hyperlipidemia (Chronic) E78.5 Essential hypertension (Chronic) I10 BILATERALLY KNEE CARTILAGE Deviated septum J34.2 - Past Surgical History Surgical History: Past Surgical History (Last Updated 08/19/18 @ 13:13 by Jez Morgan, LUANNE, OTHER SPORTS OFFICIAL, BS) Stented coronary artery (Chronic) Onset Date: 08/07/18 Z95.5 Successful PTCA/SANTI mid LAD with a 2.25 x 16 Promus Synergy, followed immediately upstream with a 2.25 x 28 Promus Synergy 08/07/18 @ [facility] per DJN H/O bilateral inguinal hernia repair Z98.890, Z87.19 - Family History Summary Family History: Family History (Last Updated 08/18/18 @ 17:09 by Leticia Velasco) Father CAD (coronary artery disease) Myocardial infarction, Onset Age: 61 Pulmonary embolus DVT (deep venous thrombosis) Social History - Smoking History Smoking Status: Former smoker Years Smokin Packs Smoked per Day: 2 Hx Smoking Cessation Date: 2008 Hx Tobacco Use: Yes Hx Smoking Exposure: No - Alcohol Use Alcohol Usage: No - Substance Abuse Hx Substance Use: No - Occupation Occupation (List type of work in comments):: Retired - Hobbies, Recreation, Social Activities Hobbies: Other - [employer], HOME REPAIR, AUTO 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 Recreational Activities: I am able to engage in most, but not all activities Social Environment - Status Marital Status: - Current Living Arrangements Living Environment:: Spouse - Children How many children do you have?: 3 Do any of your children live nearby?: No - Safety Do you feel safe in your surroundings?: Yes - Assistance Do you need any assistance at home?: NONE Review of Systems - Review of Systems Hints: Right click = Denies (Slash). Left click = Reports (Remlap) Review of Present Symptoms: Reports: Shortness of Breath with Exertion - STILL HAVE SOME SHORTNESS OF BREATH IF OVER EXERT MYSELF., Dizziness/Lightheadedness - IMMEDIATELY AFTER TAKING MEDICATIONS, YES., Appetite - Normal, Sleep - Normal. Denies: Shortness of Breath at Rest, Appetite - Special Diet - Pain Is Patient Pain Free?: Yes Pain Location: none Pain Level: 0/10 Risk Factor Assessment - Chief Complaint Chief Complaint: PATIENT IS A 72 MALE WITH RECENT SUBACUTE BRONCHITIS WHO PRESENTED TO THE HOSPITAL WITH ATYPICAL CHEST PAIN ASSOCIATED WITH HIS SHORTNESS OF BREATH. UPON FURTHER EVALUATION AND LAB WORK NOTED HIS TROPONIS AND ENZYMES WERE ELEVATED AND HE WAS ADMITTED FOR FURTHER DIAGNOSTIC STUDY. - Vital Signs Temperature: 98.7 F Respiratory Rate: 16 Pulse Ox: 96 Blood Pressure: 122/88 - Pulse Pulse Rate: 74 Pulse Rhythm: Regular - 74 - Hypertension How long have you been treated?: JUST RECENTLY STARTED ON BP MEDS. Blood Pressure Sitting - Right Arm: 122/88 - Blood Cholesterol/Lipids Total Cholesterol (mg/dL) Goal = less than 200 mg/dL: 276 HDL Cholesterol (mg/dL) Goal = less than 40 mg/dL: 59 LDL Cholesterol (mg/dL) Goal = less than 70 mg/dL: 195 Triglycerides (mg/dL) Goal = less than 150 mg/dL: 111 - Obesity Height: 6 ft 0.8 in Weight:: 196 lb 3.2 oz Weight in Pounds: 196.2 lbs Weight Source: Estimated by Staff Body Mass Index (BMI): 26.0 Nutritional Referral for Obesity: No - Physical Inactivity Physical Inactivity: None - Risk Stratification Risk Guidelines: Lowest Risk: Risk Factor for Smoking, Risk Factor for Dyslipidemia, Risk Factor for Diabetes, Risk Factor for Hypertension, Risk Factor for Depression, Moderate Risk: Risk Factor for Obesity, Highest Risk: Risk Factor for Sedentary Lifestyle - For Smoking Smoking Risk Guidelines: Smoking Low Risk: None or quit greater than 6 months ago. Smoking Moderate Risk: Smoker or quit 6 months or less ago. Smoking High Risk: Smoker - For Dyslipidemia Dyslipidemia Risk Guidelines: Low Risk: Moderate Risk: High Risk: 15-25% fat 25.1-29% fat >/= 30% fat. <7% sat fat 7-9% sat fat >9% sat fat. <150 mg chol 150-299 mg chol >/= 300 mg chol. LDL <100 LDL 100-129 LDL >/= 130. Chol/HDL ratio <5.0 Chol/HDL ratio 5.0-6.0 Chol/HDL ratio >6.0. Triglycerides <100 Triglycerides 100-149 Triglycerides >/= 150 - For Diabetes Mellitus Diabetes Risk Guidelines: Diabetes Low Risk: HgA1c <6.5% and/or FBG <120. Diabetes Moderate Risk: HgA1c 6.6-7.9% and/or FBG 120-180. Diabetes High Risk: HgA1c >/= 8% and/or FBG >180 - For Obesity/Overweight Obesity/Overweight Risk Guidelines: Obesity Low Risk: BMI <25.0. Obesity Moderate Risk: BMI 25-29.9. Obesity High Risk: BMI >/= 30.0 - For Hypertension Hypertension Risk Guidelines: Hypertension Low Risk: Systolic <120 and Diastolic <80. Hypertension Moderate Risk: Systolic 120-139 and Diastolic 80-89. Hypertension High Risk: Systolic >/= 140 and Diastolic >/= 90 - For Sedentary Lifestyle Sedentary Lifestyle Risk Guidelines: Sedentary Lifestyle Low Risk: >/= 1,500 kcal/week. Sedentary Lifestyle Moderate Risk: 700-1,499 kcal/week. Sedentary Lifestyle High Risk: < 700 kcal/week - For Depression Depression Risk Guidelines: Depression Low Risk: Not clinically depressed. Depression Moderate Risk: Mildly depressed. Depression High Risk: Clinically depressed - Family History Family History: Family History (Last Updated 08/18/18 @ 17:09 by Leticia Velasco) Father CAD (coronary artery disease) Myocardial infarction, Onset Age: 61 Pulmonary embolus DVT (deep venous thrombosis) Motivation - Motivation to Participate On a scale of 1 to 10, how prepared are you to commit to attending program?: 5 - KIND OF HESITANT ABOUT PARTICIPATING. What do you see as barriers to successfully being able to complete the program?: NOTHING PARTICULAR. What do you see as the benefits of succesfully completing the program? In other words, what do you hope to get out of participating in the program?: BE ABLE TO BREATH BETTER, BE IN BETTER SHAPE. Are there issues you are dealing with that will interfere with completing the program?: SHORT OF BREATH Do you have a spouse or signficant other, family or friends who will help support you to complete the program?: YES
--- NOTE | 2018-08-19 13:10 | CR.HP_ITS ---
CR - History & Physical - General Arrival date:: 08/19/18 Arrival time:: 12:00 Date of Referral:: 08/07/18 Date of CR Evaluation:: 08/19/18 Referring Physician: DR. ZHENG HIGH Primary Diagnosis: PTCA, PCI W/STENTING - History of Present Cardiac Event Onset Date: Enter Onset Date of cardiac illnesses in Comment field below PTCA or coronary stenting:: Yes - 08/07/2018 Type of Symptoms:: SHORTNESS OF BREATH FROM BRONCHITIS, SEEN BY FAMILY PRACTICE MD AND FOUND LAD OCCUSION. Interventions with present event:: HEART CATH, PCI STENT Were there any complications?: NONE - Medications Home Medications: Ambulatory Orders Medication Instructions Recorded Omeprazole 40 mg PO DAILY PRN PRN 08/05/18 Aspirin E.C. [Ecotrin] 81 mg PO DAILY@0800 #30 tablet 08/08/18 Clopidogrel Bisulfate [Plavix] 75 mg PO DAILY #30 tablet 08/08/18 Gemfibrozil [Lopid] 600 mg PO BIDAC #60 tablet 08/08/18 Losartan Potassium [Cozaar] 25 mg PO DAILY #30 tablet 08/08/18 Metoprolol Tartrate [Lopressor 12.5 mg PO BID #60 tablet 08/08/18 (beta laura)] - Allergies Allergies/Adverse Reactions: Allergies Iodine and Iodide Containing Produc Allergy (Verified 08/18/18 17:06) Itching petrolatum,white [From Petroleum Jelly] Adverse Reaction (Verified 08/18/18 17:06) Other Zkcagmn-Mcu-Zax Reductase Inhibitor Adverse Reaction (Verified 08/18/18 17:06) Other - Sleep Disorder Evaluation Hx of Sleep Apnea: Yes Do you snore loudly (louder than talking or can be heard through closed doors)?: No Do you often feel tired/ fatigued/ sleepy during daytime?: No Has anyone observed you stop breathing during sleep?: No History of Hypertension (for STOP score): Yes STOP Results: Negative Advanced Directives - Advanced Directives Power of Train Caller: Yes Living Will: Yes Advance Directives Information Provided: No Advance Directives on File: Yes DNR Order?:: No - MOLST See MOLST form: No Past Medical History - Past Medical Illness Medical History: Past Medical History (Last Updated 08/19/18 @ 13:13 by Jez Morgan, MAINTENANCE WORKER [employer], PRINTING SIGN MACHINE OPERATOR, BS) Atherosclerotic heart disease of [place] coronary artery without angina pectoris (Chronic) I25.10 Successful PTCA/SANTI mid LAD with a 2.25 x 16 Promus Synergy, followed immediately upstream with a 2.25 x 28 Promus Synergy 08/07/18 per DJN @ [facility] Hyperlipidemia (Chronic) E78.5 Essential hypertension (Chronic) I10 BILATERALLY KNEE CARTILAGE Deviated septum J34.2 - Past Surgical History Surgical History: Past Surgical History (Last Updated 08/19/18 @ 13:13 by Jez Morgan, LUANNE, PRINTING SIGN MACHINE OPERATOR, BS) Stented coronary artery (Chronic) Onset Date: 08/07/18 Z95.5 Successful PTCA/SANTI mid LAD with a 2.25 x 16 Promus Synergy, followed immediately upstream with a 2.25 x 28 Promus Synergy 08/07/18 @ [facility] per DJN H/O bilateral inguinal hernia repair Z98.890, Z87.19 - Family History Summary Family History: Family History (Last Updated 08/18/18 @ 17:09 by Leticia Velasco) Father CAD (coronary artery disease) Myocardial infarction, Onset Age: 61 Pulmonary embolus DVT (deep venous thrombosis) Social History - Smoking History Smoking Status: Former smoker Years Smokin Packs Smoked per Day: 2 Hx Smoking Cessation Date: 2008 Hx Tobacco Use: Yes Hx Smoking Exposure: No - Alcohol Use Alcohol Usage: No - Substance Abuse Hx Substance Use: No - Occupation Occupation (List type of work in comments):: Retired - Hobbies, Recreation, Social Activities Hobbies: Other - M[employer] [place], HOME REPAIR, AUTO REPAIRS, [employer] SIONALLY. Recreational Activities: I am able to engage in most, but not all activities Social Environment - Status Marital Status: - Current Living Arrangements Living Environment:: Spouse - Children How many children do you have?: 3 Do any of your children live nearby?: No - Safety Do you feel safe in your surroundings?: Yes - Assistance Do you need any assistance at home?: NONE Review of Systems - Review of Systems Hints: Right click = Denies ([place]). Left click = Reports ([place]) Review of Present Symptoms: Reports: Shortness of Breath with Exertion - STILL HAVE SOME SHORTNESS OF BREATH IF OVER EXERT MYSELF., Dizziness/Lightheadedness - IMMEDIATELY AFTER TAKING MEDICATIONS, YES., Appetite - Normal, Sleep - Normal. Denies: Shortness of Breath at Rest, Appetite - Special Diet - Pain Is Patient Pain Free?: Yes Pain Location: none Pain Level: 0/10 Risk Factor Assessment - Chief Complaint Chief Complaint: PATIENT IS A 72 MALE WITH RECENT SUBACUTE BRONCHITIS WHO PRESENTED TO THE HOSPITAL WITH ATYPICAL CHEST PAIN ASSOCIATED WITH HIS SHORTNESS OF BREATH. UPON FURTHER EVALUATION AND LAB WORK NOTED HIS TROPONIS AND ENZYMES WERE ELEVATED AND HE WAS ADMITTED FOR FURTHER DIAGNOSTIC STUDY. - Vital Signs Temperature: 98.7 F Respiratory Rate: 16 Pulse Ox: 96 Blood Pressure: 122/88 - Pulse Pulse Rate: 74 Pulse Rhythm: Regular - 74 - Hypertension How long have you been treated?: JUST RECENTLY STARTED ON BP MEDS. Blood Pressure Sitting - Right Arm: 122/88 - Blood Cholesterol/Lipids Total Cholesterol (mg/dL) Goal = less than 200 mg/dL: 276 HDL Cholesterol (mg/dL) Goal = less than 40 mg/dL: 59 LDL Cholesterol (mg/dL) Goal = less than 70 mg/dL: 195 Triglycerides (mg/dL) Goal = less than 150 mg/dL: 111 - Obesity Height: 6 ft 0.8 in Weight:: 196 lb 3.2 oz Weight in Pounds: 196.2 lbs Weight Source: Estimated by Staff Body Mass Index (BMI): 26.0 Nutritional Referral for Obesity: No - Physical Inactivity Physical Inactivity: None - Risk Stratification Risk Guidelines: Lowest Risk: Risk Factor for Smoking, Risk Factor for Dyslipidemia, Risk Factor for Diabetes, Risk Factor for Hypertension, Risk Factor for Depression, Moderate Risk: Risk Factor for Obesity, Highest Risk: Risk Factor for Sedentary Lifestyle - For Smoking Smoking Risk Guidelines: Smoking Low Risk: None or quit greater than 6 months ago. Smoking Moderate Risk: Smoker or quit 6 months or less ago. Smoking High Risk: Smoker - For Dyslipidemia Dyslipidemia Risk Guidelines: Low Risk: Moderate Risk: High Risk: 15-25% fat 25.1-29% fat >/= 30% fat. <7% sat fat 7-9% sat fat >9% sat fat. <150 mg chol 150-299 mg chol >/= 300 mg chol. LDL <100 LDL 100-129 LDL >/= 130. Chol/HDL ratio <5.0 Chol/HDL ratio 5.0-6.0 Chol/HDL ratio >6.0. Triglycerides <100 Triglycerides 100-149 Triglycerides >/= 150 - For Diabetes Mellitus Diabetes Risk Guidelines: Diabetes Low Risk: HgA1c <6.5% and/or FBG <120. Diabetes Moderate Risk: HgA1c 6.6-7.9% and/or FBG 120-180. Diabetes High Risk: HgA1c >/= 8% and/or FBG >180 - For Obesity/Overweight Obesity/Overweight Risk Guidelines: Obesity Low Risk: BMI <25.0. Obesity Moderate Risk: BMI 25-29.9. Obesity High Risk: BMI >/= 30.0 - For Hypertension Hypertension Risk Guidelines: Hypertension Low Risk: Systolic <120 and Diastolic <80. Hypertension Moderate Risk: Systolic 120-139 and Diastolic 80-89. Hypertension High Risk: Systolic >/= 140 and Diastolic >/= 90 - For Sedentary Lifestyle Sedentary Lifestyle Risk Guidelines: Sedentary Lifestyle Low Risk: >/= 1,500 kcal/week. Sedentary Lifestyle Moderate Risk: 700-1,499 kcal/week. Sedentary Lifestyle High Risk: < 700 kcal/week - For Depression Depression Risk Guidelines: Depression Low Risk: Not clinically depressed. Depression Moderate Risk: Mildly depressed. Depression High Risk: Clinically depressed - Family History Family History: Family History (Last Updated 08/18/18 @ 17:09 by Leticia Velasco) Father CAD (coronary artery disease) Myocardial infarction, Onset Age: 61 Pulmonary embolus DVT (deep venous thrombosis) Motivation - Motivation to Participate On a scale of 1 to 10, how prepared are you to commit to attending program?: 5 - KIND OF HESITANT ABOUT PARTICIPATING. What do you see as barriers to successfully being able to complete the program?: NOTHING PARTICULAR. What do you see as the benefits of succesfully completing the program? In other words, what do you hope to get out of participating in the program?: BE ABLE TO BREATH BETTER, BE IN BETTER SHAPE. Are there issues you are dealing with that will interfere with completing the program?: SHORT OF BREATH Do you have a spouse or signficant other, family or friends who will help support you to complete the program?: YES
[2018-08-19 13:23] VITALS: BP 122/88; PULSE 74; RESP 16; TEMP 37.1; O2SAT 96; BMI 26.0
--- NOTE | 2018-08-19 13:24 | CR.ITP_ITS ---
General Information - General Information Admitting Diagnosis: PTCA, PCI W/CORONARY STENT Special Needs: FILM OVER RETINA IN BOTH EYES, PENDING OPTICAL SURGERY NOW HAD STENT. - Education/Goals Barriers to Learning: None, Vision Impairment Individual Counseling: Initial Assessment: Abnormal Cholesterol Levels, High Blood Pressure Cardiac Rehabilitation Goals: 1. Maintain the individual as the primary focus of care. 2. To improve the patient's quality of life. 3. Identification of cardiac risk factors and provide cardiac risk factor management. 4. Enhance the psychosocial status of the patient. 5. Reconditioning enough to allow the patient to resume customary activities. 6. Control symptoms of cardiac disease Scale for measuring improvement of personal goals: Enter appropriate number in Comments. 2 = Unchanged. 3 = Slightly Better. 4 = Moderate Improvement. 5 = Met my Goal Personal Goals: Initial Assessment: Improve energy level, Get back to work, or to resume activities faster, Control risk factors (learn risk factor modification) Exercise - Initial Assessment - Visit Date of Eval: 08/19/18 - Stages of Change Stages of Change:: Action - Physician Prescribed Exercise Modalities: Treadmill - BAD KNEE LEFT KNEE HAD 3-INJECTIONS IN IT OVER YEARS BUT NOT BAD ENOUGH FOR REPLACEMENT YET., Rower, Airkylee, NuStep, SciFit Frequency (days/week): 3x/week for 12 weeks [36 sessions] Duration (Minutes):: 30-45 Intensity: 60-80% age predicted maximum heart rate reserve METs - Progression: 0.5-1.0 MET, RPE 11-14 WEEK: 2.5 Target Heart Rate:: 95-124 - Hypertension Do any of the following apply?: Yes, Medication Resting Blood Pressure:: 122/88 - Intervention Home Exercise/Activity Goal:: Moderate Exercise 30 min/day x 5 days/wk - Education Goals:: Warm-up, RPE DAYANARA Scale, S/S, Safe Exercise, Self-Monitoring - Exercise Program Goals Exercise Program Goals: Aerobic Activity >30 min Nutrition - Initial Assessment - Program Goals Nutrition Program Goals: LDL <70. Total Cholesterol <200. HDL >45. Triglycerides <150. HgbA1C <7%. BMI <25 - Visit Date of Assessment:: 08/19/18 - Stages of Change Stages of Change:: Action - Lipids Total Cholesterol (mg/dL) Goal = less than 200 mg/dL: 276 HDL Cholesterol (mg/dL) Goal = less than 45 mg/dL: 59 LDL Cholesterol (mg/dL) Goal = less than 70 mg/dL: 195 Triglycerides (mg/dL) Goal = less than 150 mg/dL: 111 - Diabetes Diabetes:: No Insulin: No Non-Insulin Dependent?: No Do you monitor your blood sugar at home?: Yes - Weight Management Height: 6 ft 0.8 in Weight:: 196 lb 3.2 oz Body Fat %:: 25 - Intervention Referral to dietitian:: No Referral to Diabetic Clinic:: No Will attend diet classes:: Yes - Education Gave educational materials for:: Healthy eating Tobacco - Initial Assessment - Program Goals Tobacco Program Goals: Complete smoking cessation. Attend education classes. Improve Knowledge Test score - Stage of Change Stages of Change:: Action - Learning Barriers Learning Barriers: Vision, Ready to Learn - Family Support Do you have family support?: Yes - Tobacco Use Tobacco Use: Non-smoker - Intervention Smoking Cessation Referral:: No Individual Education/Counseling:: No Education Schedule Given:: Yes - Education Gave educational material for:: Coronary artery disease, Risk factors, Sexuality, Medical compliance, Cardiac A&P, Angina signs & symptoms Psychosocial - Initial Assess - Target Goals Target Goals: Assess presence or absence of depression. Using a valid screening tool, maximizes coping skills. Positive support system - Stages of Change Stages of Change:: Action - Psychosocial Test Tool Used:: HANDS Depression Questionnaire - Intervention PS - Interventions: Yes Attend Stress Management Classes, No Referral to Mental Health, No Referral to [facility] Case Management, No Referral to Physician, No Uses Stress Management Skills - Education Gave educational materials for:: Coping techniques, Signs & symptoms of depression, Stress management, Relaxation techniques - Patient/Program Goal Preventative Medication(s):: Aspirin, Clopidogrel, Statin/lipid - Assistive Devices Assistive Devices:: None Fall Risk Assessed:: Yes Patient Health Questionnaire Initial Assessment 1. Little interest or pleasure in doing things: Not at all 2. Feeling down, depressed, or hopeless: Several days 3. Trouble falling or staying asleep, or sleeping too much: Not at all 4. Feeling tired or having little energy: More than half the days 5. Poor appetite or overeating: Not at all 6. Feeling bad about yourself -- or that you are a failure or have let yourself or your family down: More than half the days 7. Trouble concentrating on things, such as reading the newspaper or watching television: Not at all 8. Moving or speaking so slowly that other people could have noticed. Or the opposite - being so fidgety or restless that you have been moving around a lot more than usual: More than half the days 9. Thoughts that you would be better off , or of hurting yourself in some way: Not at all How difficult have these problems made it for you to do your work, take care of things at home, or get along with other people?: Not difficult at all Total Score: 7 TOBI-Q SV Test - Statements CAD is a disease of the arteries in the heart: True Examples of risk factors for heart disease: True Angina is chest pain or discomfort: True The benefits of resistance training include: True Eating more meat and dairy products: False Anti-platelet medications such as aspirin are important: True The only effective way to manage stress: False An exercise warm-up slowly increases heart rate: True Prepared, processed foods usually have high sodium: True Depression is common after a heart attack: True The statin medications lower cholesterol: True To control blood pressure, lower the amount of sodium: True If someone gets chest discomfort during walking: False Transfats are partially hydrogenated vegetable oils: False Sleep apnea that is not treated increases the risk: True To control cholesterol, one should become a vegetarian: False Someone knows if he/she is exercising at the right level: False Diabetes cannot be prevented with exercise & health eating: False Stress is a large risk for heart attack: True A diet that can help lower blood pressure is rich in: True - Total Score Total Correct Responses: 16 Self-Efficacy Initial Assessment We would like to know how confident you are in doing certain activities. Please select your confidence level for:: Select your confidence level for the following using the scale 1-10 where 1 is not at all confident and 10 is totally confident. Your score is the average of all 6 responses. Fatigue: How confident are you that you can keep the fatigue caused by your disease from interfering with the things you want to do? Select Number: 7 Physical Discomfort or Pain: How confident are you that you can keep the physical discomfort or pain of your disease from interfering with the things you want to do? Select Number: 6 Emotional Distress: How confident are you that you can keep the emotional distress caused by your disease from interfering with the things you want to do? Select Number: 8 Other Symptoms or Health Problems: How confident are you that you can keep other symptoms or health problems from interfering with the things you want to do? Select Number: 8 Different Tasks and Activities: How confident are you that you can do the different tasks and activities needed to manage your health condition so as to reduce your need to see a doctor? Select Number: 8 Medication: How confident are you that you can do things other than just taking medication to reduce how much your illness affects your everyday life? Select Number: 7 Total Score:: 7 Nutrition Survey - Nutrition Survey Instructions Scoring Instructions: Scoring is as follows: Yes = 1 points. No = 0 point. Patient score that is >/=12 is considered to be at potential nutritional risk and could benefit from a referral to a registered dietitian. - Nutrition Survey Initial Have you lost >10 lbs over the past 2 months without trying?: No Are you following a special diet at home for diabetes, low fat, or low salt?: No Are you interested in meeting with a dietitian for help understanding your diet?: No Do you eat less than 3 meals a day?: Yes Do you eat fatty meats (jain, sausage, ribs, etc), fried foods, desserts, large amounts of salad dressings, margarine, butter, or cheese most days?: No Do you have food allergies? [Enter types in comment field]: Yes Do you eat in restaurants more than 3 times a week?: No Do you season food with salt, seasoning salt, or garlic salt?: Yes Do you used canned, boxed, frozen meals, or soups, seasoning packets?: No Total Score:: 3
[2018-08-19 13:32] VITALS: BP 122/88
== END | disposition home or self-care (01) ==
LOC: CR 12:02
PROVIDERS: Family Provider Family Medicine Geriatric Medicine; PCP Family Medicine Geriatric Medicine; Referring Provider Internal Medicine Cardiovascular Disease; Visit Provider Internal Medicine Cardiovascular Disease
DX: Z95.5 Presence of coronary angioplasty implant and graft (principal)

== ENCOUNTER 2018-09-12 14:15 | Outpatient (RCR) | payer MEDICARE, SELFPAY ==
[2018-08-07 13:07] VITALS: BMI 25.7
[2018-08-19 13:23] VITALS: BMI 26.0
[2018-08-22 10:29] VITALS: BMI 25.6
== END 2018-09-14 23:59 ==
LOC: CR 14:15
PROVIDERS: Family Provider Family Medicine Geriatric Medicine; PCP Family Medicine Geriatric Medicine; Referring Provider Internal Medicine Cardiovascular Disease; Visit Provider Internal Medicine Cardiovascular Disease
DX: I25.10 Atherosclerotic heart disease of native coronary artery without angina pectoris (principal); Z95.5 Presence of coronary angioplasty implant and graft
CPT/HCPCS: 93798

== ENCOUNTER → 2018-09-16 | Outpatient (CLI) | payer MEDICARE, SELFPAY ==
[2018-08-07 13:07] VITALS: BMI 25.7
[2018-08-22 10:29] VITALS: BMI 25.6
== END | disposition home or self-care (01) ==
LOC: SL 20:20
PROVIDERS: Family Provider Family Medicine Geriatric Medicine; PCP Family Medicine Geriatric Medicine; Visit Provider Internal Medicine Cardiovascular Disease
DX: G47.33 Obstructive sleep apnea (adult) (pediatric) (principal); R40.0 Somnolence
CPT/HCPCS: 95810

== ENCOUNTER → 2018-10-06 | Outpatient (CLI) | payer MEDICARE, SELFPAY ==
[2018-08-07 13:07] VITALS: BMI 25.7
[2018-09-30 08:58] VITALS: BMI 26.2
[2018-10-06 10:53] LABS: AST(SGOT) 33 U/L (15-37); Alanine Aminotransfer ALT/SGPT 34 U/L (16-61); Alkaline Phosphatase 77 U/L (45-117); Bilirubin, Direct 0.16 mg/dL (0.00-0.30); Cholesterol 253 mg/dL (200); Globulin 3.4 g/dL (2.2-4.2); High Density Lipoprotein 49 mg/dL; Protein, Total 7.4 g/dL (6.4-8.2); Triglycerides 101 mg/dL; Very Low Density Lipoprotein 20 mg/dL (5-40)
== END | disposition home or self-care (01) ==
LOC: LAB 09:49
PROVIDERS: Family Provider Family Medicine Geriatric Medicine; PCP Family Medicine Geriatric Medicine; Referring Provider Internal Medicine Cardiovascular Disease; Visit Provider Internal Medicine Cardiovascular Disease
DX: I25.10 Atherosclerotic heart disease of native coronary artery without angina pectoris (principal); E78.5 Hyperlipidemia, unspecified; Z95.5 Presence of coronary angioplasty implant and graft
CPT/HCPCS: 36415; 80061; 80076; 93798

== ENCOUNTER → 2018-10-11 | Outpatient (CLI) | payer MEDICARE, SELFPAY ==
[2018-08-07 13:07] VITALS: BMI 25.7
[2018-09-30 08:58] VITALS: BMI 26.2
--- NOTE | 2018-10-11 11:00 | CT_ITS ---
STUDY: LOW DOSE CT LUNG CANCER SCREENING REASON FOR EXAM: Male, 72 years old. Lung screening, 10 years ago RADIATION DOSAGE (If Supplied By Facility): CTDIvol = ( 3.02 ) mGy, DLP = ( 101.56 ) mGycm TECHNIQUE: No contrast was administered. Low dose technique was utilized (average mAS-38 and kVp 120). 1.25 mm axial source images with a slice interval of 1.25-mm were reconstructed in lung windows. 2.5 mm axial source images with a slice interval of 2.5-mm were reconstructed in lung windows. 5.0 mm axial source images with a slice interval of 5.0-mm were reconstructed in soft tissue windows. Nodule measured using lung windows on PACS and/or independent workstation with automated measurement of minimum and maximum diameter. Nodule measurement reported as average diameter rounded to the nearest whole number. Growth is defined as an increase ins size of greater than 1.5 mm. COMPARISON: None. NODULES: Nodule #: 1 Density: Solid Lung location: Right lower lobe: Subpleural Location in series: Series 2, image 102 Size - D1 x D2 mm: 7 x 9 mm: 8 mm average diameter Margin: Smooth Shape: Oval Calcification: None Fat: None Temporal comparison: None Nodule #: 2 Density: Solid Lung location: Right upper lobe: Subpleural Location in series: Series 2 image 152 Size - D1 x D2 mm: 4 x 4 mm: 4 average diameter Margin: Smooth Shape: Rounded Calcification: None Fat: None Temporal comparison: None Total lung nodules (excluding granulomas): 2 Partially calcified nodule and satellite nodules left upper lobe extending to the pleural surface. These have overall benign appearance. Emphysema: There are mild centrilobular emphysematous changes with a few scattered parenchymal blebs. Endobronchial lesion: None Aorta: Scattered atherosclerosis but normal in caliber. Coronary arteries: Atherosclerotic calcifications. Heart: Normal size Pulmonary artery: Unremarkable and opacified knee. Mediastinal nodes: No soft tissue adenopathy. Other chest and abdominal findings: There are granulomatous calcifications of the spleen. CT/Low Dose CT Lung Screening IMPRESSION: Lung-RADS category 4A - 8 mm (average diameter) noncalcified subpleural nodule in the right upper lobe. Screening at 3 months wiht LDCT or evaluation with PET/CT may be used. IMPORTANT NOTES FOR USE: ACR Lung-RADS Version 1.0 Assessment Categories Release Date: July 13, 2013 Category: Coded 0-4 bases on nodule(s) with highest degree of suspicion. Negative screen is defined as categories 1 and 2; a positive screen is defined as categories 3 and 4. Category 3 and 4A nodules that are unchanged on interval CT should be coded as category 2, and individuals returned to screening in 12 months. Category 4X: Category 3 or 4 nodules with additional imaging findings that increase the suspicion of lung cancer, such as spiculation, GGN that doubles in size in 1 year, enlarged lymph notes, etc. Category Modifiers: S (significant finding unrelated to lung cancer) and C (prior history of treated lung cancer) may be added to the 0-4 Lung-RADS Electronically Signed: Rayo Cueva MD at 11:39 EDT , Service support ,
== END | disposition home or self-care (01) ==
LOC: CT 10:59
PROVIDERS: Family Provider Family Medicine Geriatric Medicine; PCP Family Medicine Geriatric Medicine; Referring Provider Nurse Practitioner Acute Care; Visit Provider Nurse Practitioner Acute Care
DX: F17.200 Nicotine dependence, unspecified, uncomplicated (principal); Z87.891 Personal history of nicotine dependence; Z12.2 Encounter for screening for malignant neoplasm of respiratory organs
CPT/HCPCS: G0297

== ENCOUNTER 2018-10-15 14:15 | Outpatient (RCR) | payer MEDICARE, SELFPAY ==
[2018-08-07 13:07] VITALS: BMI 25.7
[2018-08-22 10:29] VITALS: BMI 25.6
--- NOTE | 2018-09-17 12:51 | CR.ITP_ITS ---
Exercise - 30-day Assessment - Visit Date of Eval: 09/17/18 Session #:: 11 - started cr on 08/25/2018 - Stages of Change Stages of Change:: Action - Physician Prescribed Exercise Modalities: Treadmill, Rower, Airdyne, NuStep Frequency (days/week): 3 Duration (Minutes):: 30-45 Intensity: 60-80% age predicted maximum heart rate reserve METs - Progression: 0.5-1.0 MET, RPE 11-14 WEEK: 5.0 Target Heart Rate:: 95-124 with max HR 125 - Hypertension Resting Blood Pressure:: 118/52 Peak Exercise Blood Pressure:: 140/80 Medication Changes:: No - Intervention Home Exercise/Activity Goal:: Moderate Exercise 30 min/day x 5 days/wk - Education Goals:: Warm-up, RPE DAYANARA Scale, S/S, Safe Exercise, Self-Monitoring - Exercise Program Goals Exercise Program Goals: Aerobic Activity >30 min Nutrition - Initial Assessment - Program Goals Nutrition Program Goals: LDL <70. Total Cholesterol <200. HDL >45. Triglycerides <150. HgbA1C <7%. BMI <25 - Diabetes Do you monitor your blood sugar at home?: Yes Nutrition - 30-Day Assessment - Program Goals Nutrition Program Goals: LDL <70. Total Cholesterol <200. HDL >45. Tr iglycerides <150. HgbA1C <7%. BMI <25 - Visit Date of Eval: 09/17/18 - Stages of Change Stages of Change:: Action - Lipids Has the patient seen the dietitian?: No - Diabetes Diabetes:: No - Weight Management Weight:: 196 lb - weight stable - Intervention Referral to dietitian:: No Referral to Diabetic Clinic:: No Will attend diet classes:: Yes - Education Attended class for:: Healthy eating Tobacco - Initial Assessment - Program Goals Tobacco Program Goals: Complete smoking cessation. Attend education classes. Improve Knowledge Test score - Learning Barriers Learning Barriers: Vision, Ready to Learn Tobacco - 30-Day Assessment - Program Goals Tobacco Program Goals: Complete smoking cessation. Attend education classes. Improve Knowledge Test score - Stage of Change Stages of Change:: Action - Learning Barriers Learning Barriers: Participates in education, Change in behavior - Family Support Do you have family support?: Yes - Tobacco Use Tobacco Use: Non-smoker - Intervention Smoking Cessation Referral:: No Individual Education/Counseling:: No Education Schedule Given:: Yes - Education Attended class for:: Coronary artery disease, Risk factors, Sexuality, Medical compliance, Cardiac A&P, Angina signs & symptoms Psychosocial - Initial Assess - Target Goals Target Goals: Assess presence or absence of depression. Using a valid screening tool, maximizes coping skills. Positive support system - Psychosocial Test Tool Used:: HANDS Depression Questionnaire - Assistive Devices Fall Risk Assessed:: Yes Psychosocial - 30-Day Assess - Target Goals Target Goals: Assess presence or absence of depression. Using a valid screening tool, maximizes coping skills. Positive support system - Stages of Change Stages of Change:: Action - Psychosocial Test Tool Used:: HANDS Depression Questionnaire - Intervention PS - Interventions: Yes Attend Stress Management Classes, No Referral to Mental Health, No Referral to [facility] Case Management, No Referral to Physician, No Uses Stress Management Skills - Education Attended classes for:: Coping techniques, Signs & symptoms of depression, Stress management, Relaxation techniques - Patient/Program Goal Preventative Medication(s):: Aspirin, Clopidogrel, Beta laura, Statin/lipid - Assistive Devices Assistive Devices:: None Fall Risk Assessed:: Yes Patient Health Questionnaire 30-Day Re-eval Assessment 1. Little interest or pleasure in doing things: Not at all 2. Feeling down, depressed, or hopeless: Not at all 3. Trouble falling or staying asleep, or sleeping too much: Not at all 4. Feeling tired or having little energy: Several days 5. Poor appetite or overeating: Not at all 6. Feeling bad about yourself -- or that you are a failure or have let yourself or your family down: Several days 7. Trouble concentrating on things, such as reading the newspaper or watching television: Not at all 8. Moving or speaking so slowly that other people could have noticed. Or the opposite - being so fidgety or restless that you have been moving around a lot more than usual: Several days 9. Thoughts that you would be better off , or of hurting yourself in some way: Not at all How difficult have these problems made it for you to do your work, take care of things at home, or get along with other people?: Not difficult at all Total Score: 3 Self-Efficacy 30-Day Re-eval Assessment We would like to know how confident you are in doing certain activities. Please select your confidence level for:: Select your confidence level for the following using the scale 1-10 where 1 is not at all confident and 10 is totally confident. Your score is the average of all 6 responses. Fatigue: How confident are you that you can keep the fatigue caused by your disease from interfering with the things you want to do? Select Number: 8 Physical Discomfort or Pain: How confident are you that you can keep the physical discomfort or pain of your disease from interfering with the things you want to do? Select Number: 7 Emotional Distress: How confident are you that you can keep the emotional distress caused by your disease from interfering with the things you want to do? Select Number: 9 Other Symptoms or Health Problems: How confident are you that you can keep other symptoms or health problems from interfering with the things you want to do? Select Number: 9 Different Tasks and Activities: How confident are you that you can do the different tasks and activities needed to manage your health condition so as to reduce your need to see a doctor? Select Number: 9 Medication: How confident are you that you can do things other than just taking medication to reduce how much your illness affects your everyday life? Select Number: 8 Total Score:: 8
[2018-09-17 12:55] VITALS: BP 118/52; BP 140/80
== END 2018-10-15 23:59 ==
LOC: CR 14:15
PROVIDERS: Family Provider Family Medicine Geriatric Medicine; PCP Family Medicine Geriatric Medicine; Referring Provider Internal Medicine Cardiovascular Disease; Visit Provider Internal Medicine Cardiovascular Disease
DX: I25.10 Atherosclerotic heart disease of native coronary artery without angina pectoris (principal); Z95.5 Presence of coronary angioplasty implant and graft
CPT/HCPCS: 93798

== ENCOUNTER → 2018-11-03 | Outpatient (CLI) | payer MEDICARE, SELFPAY ==
[2018-08-07 13:07] VITALS: BMI 25.7
[2018-09-30 08:58] VITALS: BMI 26.2
== END | disposition home or self-care (01) ==
LOC: SL 20:08
PROVIDERS: Family Provider Family Medicine Geriatric Medicine; PCP Family Medicine Geriatric Medicine; Visit Provider Nurse Practitioner Acute Care
DX: G47.33 Obstructive sleep apnea (adult) (pediatric) (principal)
CPT/HCPCS: 95811

== ENCOUNTER → 2018-11-04 | Outpatient (CLI) | payer MEDICARE, SELFPAY ==
[2018-08-07 13:07] VITALS: BMI 25.7
[2018-09-30 08:58] VITALS: BMI 26.2
--- NOTE | 2018-11-05 07:39 | PFTCOMP ---
COMPLETE PULMONARY FUNCTION TEST INTERPRETATION Brief HPI: Patient is a 73 year old male, currently under the care of myself, who presents to [facility] for complete pulmonary function tests secondary to diagnosis of wheezing. Respiratory therapist reports good effort and reproducible results. Interpretation: Forced expiration spirometry shows a moderate large airways obstructive ventilatory defect with an FEV1 of 67% predicted. There is no significant bronchodilator response by strict ATS criteria. Spirograms are of good quality and plateau slowly, indicating slowly emptying areas of the lungs. The respiratory flow volume loop shows decreased expiratory flow rates at all lung volumes consistent with airway obstruction. Lung volumes by body plethysmography show a slightly reduced total lung capacity at 6.12 L, 86% predicted. All other lung volumes are within normal limits. Diffusion capacity by carbon monoxide is normal at 89% predicted. The airway resistance is elevated. No previous pulmonary function tests were available for review. Impression: Moderate mixed ventilatory defect with preserved diffusion capacity. No previous study available for comparison.
== END | disposition home or self-care (01) ==
LOC: PSN 13:18
PROVIDERS: Family Provider Family Medicine Geriatric Medicine; PCP Family Medicine Geriatric Medicine; Referring Provider Internal Medicine Critical Care Medicine; Visit Provider Internal Medicine Critical Care Medicine
DX: G47.33 Obstructive sleep apnea (adult) (pediatric) (principal); R06.2 Wheezing
CPT/HCPCS: 94060; 94726; 94729

== ENCOUNTER 2018-11-14 14:15 | Outpatient (RCR) | payer MEDICARE, SELFPAY ==
[2018-08-07 13:07] VITALS: BMI 25.7
[2018-09-30 08:58] VITALS: BMI 26.2
[2018-10-16 00:57] VITALS: BP 118/52; BP 140/80
--- NOTE | 2018-10-17 09:29 | PCM.CR.ITP ---
Exercise - 60-Day Assessment - Visit Date of Eval: 10/17/18 Session #:: 23 - Stages of Change Stages of Change:: Action - Physician Prescribed Exercise Modalities: Rower, Airdyne, NuStep Frequency (days/week): 3 Duration (Minutes):: 30-45 Intensity: 60-80% age predicted maximum heart rate reserve METs - Progression: 0.5-1.0 MET, RPE 11-14 WEEK: 6 Target Heart Rate:: 95-124 max HR 122 - Hypertension Resting Blood Pressure:: 132/88 Peak Exercise Blood Pressure:: 164/88 Medication Changes:: Yes - DCd losartan - Intervention Home Exercise/Activity Goal:: Moderate Exercise 30 min/day x 5 days/wk - Education Goals:: Warm-up, RPE DAYANARA Scale, S/S, Safe Exercise, Self-Monitoring - Exercise Program Goals Exercise Program Goals: Aerobic Activity >30 min Nutrition - Initial Assessment - Program Goals Nutrition Program Goals: LDL <70. Total Cholesterol <200. HDL >45. Triglycerides <150. HgbA1C <7%. BMI <25 - Diabetes Do you monitor your blood sugar at home?: Yes Nutrition - 60-Day Assessment - Program Goals Nutrition Program Goals: LDL <70. Total Cholesterol <200. HDL >45. Triglycerides <150. HgbA1C <7%. BMI <25 - Visit Date of Eval: 10/17/18 - Stages of Change Stages of Change:: Action - Lipids Has the patient seen the dietitian?: Yes - Diabetes Diabetes:: No - Weight Management Weight:: 199 lb 8 oz - Intervention Referral to dietitian:: No Referral to Diabetic Clinic:: No Will attend diet classes:: Yes - Education Attended class for:: Healthy eating Tobacco - Initial Assessment - Program Goals Tobacco Program Goals: Complete smoking cessation. Attend education classes. Improve Knowledge Test score - Learning Barriers Learning Barriers: Vision, Ready to Learn Tobacco - 60-Day Assessment - Program Goals Tobacco Program Goals: Complete smoking cessation. Attend education classes. Improve Knowledge Test score - Stage of Change Stages of Change:: Action - Learning Barriers Learning Barriers: Participates in education - Family Support Do you have family support?: Yes - Tobacco Use Tobacco Use: Non-smoker Do you use smokeless tobacco?: No - Intervention Smoking Cessation Referral:: No Education Schedule Given:: Yes - Education Attended class for:: Treating Heart Disease, How The Heart Works, What it means to have Heart Disease, How Coronary Artery Disease is Diagnosed, Heart Procedures, What Heart Medications Do, Risk Factors & Modifications, Living an Active Life, Nutrition, Emotions & Heart Disease, Stress Management & Relaxation, Sleep Disorders & Heart Disease Psychosocial - Initial Assess - Target Goals Target Goals: Assess presence or absence of depression. Using a valid screening tool, maximizes coping skills. Positive support system - Psychosocial Test Tool Used:: HANDS Depression Questionnaire - Assistive Devices Fall Risk Assessed:: Yes Psychosocial - 60-Day Assess - Target Goals Target Goals: Assess presence or absence of depression. Using a valid screening tool, maximizes coping skills. Positive support system - Stages of Change Stages of Change:: Action - Psychosocial Test Tool Used:: HANDS Depression Questionnaire - Intervention PS - Interventions: Yes Attend Stress Management Classes, Yes Uses Stress Management Skills, No Referral to Mental Health, No Referral to [facility] Case Management, No Referral to Physician - Education Attended classes for:: Coping techniques, Signs & symptoms of depression, Stress management, Relaxation techniques - Patient/Program Goal Preventative Medication(s):: Aspirin, SCHUYLER inhibitor, Clopidogrel, Beta laura, Statin/lipid - Assistive Devices Assistive Devices:: None Fall Risk Assessed:: Yes Patient Health Questionnaire 60-Day Re-eval Assessment 1. Little interest or pleasure in doing things: Not at all 2. Feeling down, depressed, or hopeless: Not at all 3. Trouble falling or staying asleep, or sleeping too much: Not at all 4. Feeling tired or having little energy: Not at all 5. Poor appetite or overeating: Not at all 6. Feeling bad about yourself -- or that you are a failure or have let yourself or your family down: Not at all 7. Trouble concentrating on things, such as reading the newspaper or watching television: Not at all 8. Moving or speaking so slowly that other people could have noticed. Or the opposite - being so fidgety or restless that you have been moving around a lot more than usual: Not at all 9. Thoughts that you would be better off , or of hurting yourself in some way: Not at all How difficult have these problems made it for you to do your work, take care of things at home, or get along with other people?: Not difficult at all Total Score: 0 Self-Efficacy 60-Day Re-eval Assessment We would like to know how confident you are in doing certain activities. Please select your confidence level for:: Select your confidence level for the following using the scale 1-10 where 1 is not at all confident and 10 is totally confident. Your score is the average of all 6 responses. Fatigue: How confident are you that you can keep the fatigue caused by your disease from interfering with the things you want to do? Select Number: 10 Physical Discomfort or Pain: How confident are you that you can keep the physical discomfort or pain of your disease from interfering with the things you want to do? Select Number: 10 Emotional Distress: How confident are you that you can keep the emotional distress caused by your disease from interfering with the things you want to do? Select Number: 10 Other Symptoms or Health Problems: How confident are you that you can keep other symptoms or health problems from interfering with the things you want to do? Select Number: 10 Different Tasks and Activities: How confident are you that you can do the different tasks and activities needed to manage your health condition so as to reduce your need to see a doctor? Select Number: 10 Medication: How confident are you that you can do things other than just taking medication to reduce how much your illness affects your everyday life? Select Number: 10 Total Score:: 10
[2018-10-17 09:32] VITALS: BP 132/88; BP 164/88
== END 2018-11-15 23:59 ==
LOC: CR 14:15
PROVIDERS: Family Provider Family Medicine Geriatric Medicine; PCP Family Medicine Geriatric Medicine; Referring Provider Internal Medicine Cardiovascular Disease; Visit Provider Internal Medicine Cardiovascular Disease
DX: I25.10 Atherosclerotic heart disease of native coronary artery without angina pectoris (principal); Z95.5 Presence of coronary angioplasty implant and graft
CPT/HCPCS: 93798

== ENCOUNTER → 2018-11-21 | Outpatient (CLI) | payer MEDICARE, SELFPAY ==
[2018-08-07 13:07] VITALS: BMI 25.7
[2018-09-30 08:58] VITALS: BMI 26.2
--- NOTE | 2018-11-21 09:49 | ECHOD_ITS ---
Reason For Study: CAD/ASHD Procedure This was a 2D Doppler, Color Flow transthoracic echocardiogram. Exam performed in department. Left Ventricle Normal size and thickness. The estimated ejection fraction is 60 %. Stage 2 diastolic dysfunction. No regional wall motion abnormalities noted. Right Ventricle Mildly dilated right ventricle. Normal systolic function. Atria Normal left atrium. Normal right atrium. Normal atrial septum. Mitral Valve Mild diffuse mitral valve thickening. Moderate mitral annular calcification extending into the posterior leaflet. Mild (1+) mitral valve insufficiency. Tricuspid Valve Normal tricuspid valve. Trivial tricuspid valve insufficiency. Right ventricular systolic pressure estimated to be 24 mmHg. Aortic Valve Trisinus/trileaflet aortic valve. Moderate diffuse aortic valve thickening. Mild aortic stenosis. Peak aortic valve gradient 16 mmHg. Mean aortic valve gradient 10 mmHg. Calculated aortic valve area (continuity equation) is 1.9 cm2. Mild (1+) aortic valve insufficiency. Pulmonic Valve Normal pulmonic valve. Great Vessels Calcified aortic root. Normal arch. Normal inferior vena cava. Inferior vena cava collapse with sniff. Pericardium/Pleural No pericardial effusion. MMode/2D Measurements & Calculations LVIDd: 4.8 cm IVSd: 1.0 cm LVOT diam: 2.4 cm LVIDs: 3.4 cm LVPWd: 1.0 cm LVOT area: 4.4 cm2 RVDd: 3.9 cm FS: 28.8 % LAV(MOD-bp): 66.1 ml LA A4 area: 20.1 cm2 LA dimension(2D): 4.3 cm LAV(MOD-bp) Indexed: 31.7 ml/m2 LAV(MOD-sp2): 65.4 ml LAV(MOD-sp4): 62.9 ml RA A4 area: 15.3 cm2 Time Measurements MV dec time: 0.15 sec Doppler Measurements & Calculations MV E max donald: 96.6 cm/sec Lat Peak E' Donald: 6.4 cm/sec Med Peak E' Donald: 4.2 cm/sec MV A max donald: 87.7 cm/sec E/E' lat: 15.1 E/E' med: 23.1 MV E/A: 1.1 Ao V2 max: 199.6 cm/sec AI max donald: 441.0 cm/sec LV V1 max: 86.2 cm/sec Ao max P.9 mmHg AI max P.9 mmHg LV V1 max P.0 mmHg Ao V2 mean: 150.1 cm/sec AI dec slope: 191.0 cm/sec2 LV V1 mean P.7 mmHg Ao mean P.7 mmHg AI P1/2t: 676.3 msec LV V1 mean: 63.1 cm/sec Ao V2 VTI: 53.5 cm LV V1 VTI: 23.4 cm RAFFAELE(I,D): 1.9 cm2 RAFFAELE(V,D): 1.9 cm2 SV(LVOT): 104.2 ml PA V2 max: 74.1 cm/sec PI end-d donald: 97.4 cm/sec TR max donald: 218.9 cm/sec TR max P.2 mmHg Interpretation Summary The estimated ejection fraction is 60 %. Stage 2 diastolic dysfunction. Mildly dilated right ventricle. Mild (1+) mitral valve insufficiency. Trivial tricuspid valve insufficiency. Right ventricular systolic pressure estimated to be 24 mmHg. Mild aortic stenosis. Calculated aortic valve area (continuity equation) is 1.9 cm2. Mild (1+) aortic valve insufficiency. Compared to echo report dated 08/07/2018, no appreciable changes noted. Ordering Physician: Dennys Herman Referring Physician: Fox Martinez Chi Performed By: Jolene Ysuuf, KARELY, RVT
== END | disposition home or self-care (01) ==
LOC: CVS 09:47
PROVIDERS: Family Provider Family Medicine Geriatric Medicine; PCP Family Medicine Geriatric Medicine; Referring Provider Internal Medicine Cardiovascular Disease; Visit Provider Internal Medicine Cardiovascular Disease
DX: R06.09 Other forms of dyspnea (principal)
CPT/HCPCS: 93306

== ENCOUNTER → 2018-12-11 | Outpatient (CLI) | payer MEDICARE, SELFPAY ==
[2018-08-07 13:07] VITALS: BMI 25.7
[2018-09-30 08:58] VITALS: BMI 26.2
[2018-12-11 11:42] LABS: Absolute Lymphocyte Count 1.66 X10^3/uL (0.83-4.51); Absolute Neutrophil Count 2.4 X10^3/uL (2.0-7.7); Basophil# 0.04 X10^3/uL; Basophil% 0.8 % (0-1); Eosinophil# 0.44 X10^3/uL; Eosinophils% 8.3 % (0-5); Hematocrit 46.3 % (40-54); Hemoglobin 15.2 g/dL (13.0-16.5); Lymphocyte # 1.66 X10^3/ul (4.0); Lymphocyte % 31.4 % (19-41); Mean Corp Hgb Conc 32.8 g/dL (32-36); Mean Corpuscular Hgb 30.8 pg (27.0-32.0); Mean Corpuscular Volume 93.7 fL (80-94); Mean Platelet Vol. 9.9 fl (6.2-12.0); Monocyte# 0.76 X10^3/uL; Monocyte% 14.4 % (0-10); NRBC Flagged by Analyzer 0 % (0-5); Neutrophil # 2.37 X10^3/uL (2.7-7.7); Neutrophil % 44.7 % (47-70); Platelet Count 222 K/mm3 (150-450); RBC Distribution Width SD 41.1 fl (35.1-43.9); Red Blood Count 4.94 M/mm3 (4.6-6.2); White Blood Count 5.3 K/mm3 (4.4-11.0)
[2018-12-11 12:00] LABS: Vitamin D,25 Hydroxy 32.8 ng/mL (29.95-100.01)
[2018-12-11 12:08] LABS: ALB/GLOB Ratio 1.2 RATIO (0.9-2.4); AST(SGOT) 33 U/L (15-37); Alanine Aminotransfer ALT/SGPT 38 U/L (16-61); Albumin, Serum 3.8 g/dL (3.2-5.0); Alkaline Phosphatase 71 U/L (45-117); Anion Gap 9 (5-15); BUN 16 mg/dL (7-18); Calcium,Total 8.9 mg/dL (8.5-10.1); Chloride 107 mmol/L (98-107); Creatinine, Serum 1.23 mg/dL (0.70-1.30); EST Glomerular Filtration Rate 61 mL/min (>60); Est Glom Filt Rate - Afr Amer 74 mL/min (>60); Globulin 3.3 g/dL (2.2-4.2); Glucose 62 mg/dL (74-106); Potassium 4.1 mmol/L (3.5-5.1); Protein, Total 7.1 g/dL (6.4-8.2); Sodium Level 143 mmol/L (136-145); Thyroid Stim Hormone (TSH) 2.28 uIU/mL (0.358-3.74)
== END | disposition home or self-care (01) ==
LOC: POLAB3 10:05
PROVIDERS: Family Provider Family Medicine Geriatric Medicine; PCP Family Medicine Geriatric Medicine; Visit Provider Family Medicine Geriatric Medicine
DX: E55.9 Vitamin D deficiency, unspecified (principal); I10 Essential (primary) hypertension
CPT/HCPCS: 36415; 80053; 82306; 84443; 85025

== ENCOUNTER → 2019-02-19 10:00 | Outpatient (CLI) | payer MEDICARE, SELFPAY ==
[2018-08-07 13:07] VITALS: BMI 25.7
[2019-02-04 06:25] VITALS: BMI 25.0
== END ==
PROVIDERS: Family Provider Family Medicine Geriatric Medicine; PCP Family Medicine Geriatric Medicine; Referring Provider Internal Medicine Critical Care Medicine; Visit Provider Internal Medicine Critical Care Medicine
DX: G47.33 Obstructive sleep apnea (adult) (pediatric) (principal)
CPT/HCPCS: 98960; G0463

== ENCOUNTER → 2019-02-26 13:13 | Outpatient (CLI) | payer MEDICARE, SELFPAY ==
[2018-08-07 13:07] VITALS: BMI 25.7
[2019-02-04 06:25] VITALS: BMI 25.0
--- NOTE | 2019-02-26 13:15 | CT_ITS ---
STUDY: CT CHEST WITHOUT CONTRAST REASON FOR EXAM: Male, 73 years old. Left upper lobe nodule follow-up RADIATION DOSAGE (If Supplied By Facility): CTDIvol = ( 13.73 ) mGy, DLP = ( 528.50 ) mGycm TECHNIQUE: Transaxial imaging was performed without the administration of intravenous contrast material. Multiplanar coronal and sagittal images were reformatted. Individualized dose optimization techniques were used for this CT. COMPARISON: 10/11/2018 FINDINGS: 7 x 9 mm smoothly marginated subpleural noncalcified nodule of the right anterior upper lobe is stable since the prior study. Subpleural nodule of the anterior right middle lobe on image 84 is stable. Partially calcified nodule with adjacent satellite nodules of the left upper lobe stable. 5 mm noncalcified subpleural nodule in the lateral right lower lobe is stable on image 81 when directly compared to the prior study. No new or enlarging pulmonary nodule. There are scattered fibrotic changes. Mild centrilobular emphysematous changes. There is no demonstrated pleural abnormality. Normal heart and pericardium. There are calcifications of the coronary arteries. Normal mediastinum. Normal hilar regions. Normal unenhanced pulmonary arteries. Mild atherosclerosis without evidence of aneurysm. There are multi-level degenerative changes of the thoracic spine. Gallstone layers dependently within the gallbladder lumen. Adrenal glands are not focally enlarged. Low-density lesion in the central left hepatic lobe adjacent to the falciform ligament either represents a simple cyst or localized fatty infiltration. CT/Chest without Contrast IMPRESSION: 1. Since 10/11/2018, stable exam. Stable noncalcified nodules measuring up to 8 mm (right upper lobe). 2. Centrilobular emphysema with mild fibrotic changes. Electronically Signed: Rayo Cueva MD (Bro[place]) at 9:04 EST , Service support ,
== END ==
PROVIDERS: Family Provider Family Medicine Geriatric Medicine; PCP Family Medicine Geriatric Medicine; Referring Provider Internal Medicine Critical Care Medicine; Visit Provider Internal Medicine Critical Care Medicine
DX: R91.8 Other nonspecific abnormal finding of lung field (principal)
CPT/HCPCS: 71250

== ENCOUNTER → 2019-04-02 11:14 | Outpatient (CLI) | payer MEDICARE, SELFPAY ==
[2018-08-07 13:07] VITALS: BMI 25.7
[2019-03-26 14:00] VITALS: BMI 26.5
[2019-04-02 12:57] LABS: AST(SGOT) 38 U/L (15-37); Alanine Aminotransfer ALT/SGPT 51 U/L (16-61); Albumin, Serum 4.2 g/dL (3.2-5.0); Alkaline Phosphatase 80 U/L (45-117); Bilirubin, Direct 0.23 mg/dL (0.00-0.30); Cholesterol 216 mg/dL (200); Globulin 3.7 g/dL (2.2-4.2); High Density Lipoprotein 56 mg/dL; Protein, Total 7.9 g/dL (6.4-8.2); Triglycerides 73 mg/dL; Very Low Density Lipoprotein 15 mg/dL (5-40)
== END ==
PROVIDERS: PCP Family Medicine Geriatric Medicine; Referring Provider Internal Medicine Cardiovascular Disease; Visit Provider Internal Medicine Cardiovascular Disease
DX: E78.00 Pure hypercholesterolemia, unspecified (principal)
CPT/HCPCS: 36415; 80061; 80076

== ENCOUNTER → 2019-04-27 | Outpatient (CLI) | payer MEDICARE, SELFPAY ==
[2018-08-07 13:07] VITALS: BMI 25.7
[2019-03-26 14:00] VITALS: BMI 26.5
[2019-04-27 12:17] LABS: Basophil% 0.7 % (0-1); Eosinophils% 6.9 % (0-5); Hematocrit 44.5 % (40-54); Hemoglobin 15.4 g/dL (13.0-16.5); Lymphocyte % 22.3 % (19-41); Mean Corp Hgb Conc 34.6 g/dL (32-36); Mean Corpuscular Hgb 31.9 pg (27.0-32.0); Mean Corpuscular Volume 92.1 fL (80-94); Mean Platelet Vol. 9.8 fl (6.2-12.0); Monocyte% 11.9 % (0-10); Neutrophil # 4.05 X10^3/uL (2.7-7.7); Neutrophil % 57.8 % (47-70); Platelet Count 206 K/mm3 (150-450); RBC Distribution Width CV 12.2 % (11.6-14.6); RBC Distribution Width SD 40.4 fl (35.1-43.9); Red Blood Count 4.83 M/mm3 (4.6-6.2)
[2019-04-27 12:18] LABS: Absolute Lymphocyte Count 1.56 X10^3/uL (0.83-4.51); Absolute Neutrophil Count 4.1 X10^3/uL (2.0-7.7); Basophil# 0.05 X10^3/uL; Eosinophil# 0.48 X10^3/uL; Lymphocyte # 1.56 X10^3/ul (4.0); Monocyte# 0.83 X10^3/uL; NRBC Flagged by Analyzer 0 % (0-5)
[2019-04-27 12:26] LABS: International Normalized Ratio 1.2; Prothrombin Time (Protime)PT. 14.8 SECONDS (11.7-14.9)
== END | disposition home or self-care (01) ==
LOC: POLAB3 11:50
PROVIDERS: PCP Family Medicine Geriatric Medicine; Visit Provider Family Medicine Geriatric Medicine
DX: I25.10 Atherosclerotic heart disease of native coronary artery without angina pectoris (principal)
CPT/HCPCS: 36415; 85025; 85610; 85730

== ENCOUNTER → 2019-06-15 | Outpatient (CLI) | payer MEDICARE, SELFPAY ==
[2018-08-07 13:07] VITALS: BMI 25.7
[2019-05-06 08:26] VITALS: BMI 26.5
[2019-06-15 12:40] LABS: Absolute Lymphocyte Count 1.85 X10^3/uL (0.83-4.51); Absolute Neutrophil Count 4.5 X10^3/uL (2.0-7.7); Basophil# 0.03 X10^3/uL; Basophil% 0.4 % (0-1); Eosinophil# 0.34 X10^3/uL; Eosinophils% 4.7 % (0-5); Hematocrit 44.8 % (40-54); Hemoglobin 15.1 g/dL (13.0-16.5); Lymphocyte # 1.85 X10^3/ul (4.0); Lymphocyte % 25.4 % (19-41); Mean Corp Hgb Conc 33.7 g/dL (32-36); Mean Corpuscular Volume 94.9 fL (80-94); Mean Platelet Vol. 9.6 fl (6.2-12.0); Monocyte# 0.54 X10^3/uL; Monocyte% 7.4 % (0-10); NRBC Flagged by Analyzer 0 % (0-5); Neutrophil # 4.49 X10^3/uL (2.7-7.7); Neutrophil % 61.6 % (47-70); Platelet Count 193 K/mm3 (150-450); RBC Distribution Width CV 13.3 % (11.6-14.6); RBC Distribution Width SD 45.3 fl (35.1-43.9); Red Blood Count 4.72 M/mm3 (4.6-6.2); White Blood Count 7.3 K/mm3 (4.4-11.0)
[2019-06-15 12:50] LABS: ALB/GLOB Ratio 1.1 RATIO (0.9-2.4); AST(SGOT) 34 U/L (15-37); Alanine Aminotransfer ALT/SGPT 51 U/L (16-61); Albumin, Serum 3.7 g/dL (3.2-5.0); Alkaline Phosphatase 61 U/L (45-117); Anion Gap 6 (5-15); BUN 16 mg/dL (7-18); BUN/Creat Ratio 14.5 RATIO (10-20); Chloride 106 mmol/L (98-107); EST Glomerular Filtration Rate 69 mL/min (>60); Est Glom Filt Rate - Afr Amer 84 mL/min (>60); Globulin 3.3 g/dL (2.2-4.2); Glucose 122 mg/dL (74-106); Potassium 3.4 mmol/L (3.5-5.1); Sodium Level 140 mmol/L (136-145); Thyroid Stim Hormone (TSH) 3.83 uIU/mL (0.358-3.74)
== END | disposition home or self-care (01) ==
LOC: POLAB3 09:16
PROVIDERS: PCP Family Medicine Geriatric Medicine; Visit Provider Family Medicine Geriatric Medicine
DX: E55.9 Vitamin D deficiency, unspecified (principal); I10 Essential (primary) hypertension; F52.8 Other sexual dysfunction not due to a substance or known physiological condition
CPT/HCPCS: 36415; 80053; 82306; 84403; 84443; 85025

== ENCOUNTER → 2019-06-19 | Outpatient (CLI) | payer MEDICARE, SELFPAY ==
[2018-08-07 13:07] VITALS: BMI 25.7
[2019-05-06 08:26] VITALS: BMI 26.5
[2019-06-19 12:48] LABS: Anion Gap 7 (5-15); BUN 14 mg/dL (7-18); BUN/Creat Ratio 11.7 RATIO (10-20); Calcium,Total 9.3 mg/dL (8.5-10.1); Chloride 102 mmol/L (98-107); EST Glomerular Filtration Rate 63 mL/min (>60); Est Glom Filt Rate - Afr Amer 76 mL/min (>60); Glucose 112 mg/dL (74-106); Potassium 3.3 mmol/L (3.5-5.1); Sodium Level 139 mmol/L (136-145)
== END | disposition home or self-care (01) ==
LOC: POLAB3 11:09
PROVIDERS: PCP Family Medicine Geriatric Medicine; Visit Provider Family Medicine Geriatric Medicine
DX: E87.6 Hypokalemia (principal)
CPT/HCPCS: 36415; 80048

== ENCOUNTER → 2019-06-30 | Outpatient (CLI) | payer MEDICARE, SELFPAY ==
[2018-08-07 13:07] VITALS: BMI 25.7
[2019-05-06 08:26] VITALS: BMI 26.5
[2019-06-30 12:50] LABS: Anion Gap 7 (5-15); BUN 16 mg/dL (7-18); BUN/Creat Ratio 12.1 RATIO (10-20); Calcium,Total 9.2 mg/dL (8.5-10.1); Chloride 106 mmol/L (98-107); Creatinine, Serum 1.32 mg/dL (0.70-1.30); EST Glomerular Filtration Rate 56 mL/min (>60); Est Glom Filt Rate - Afr Amer 68 mL/min (>60); Glucose 97 mg/dL (74-106); Potassium 3.8 mmol/L (3.5-5.1); Sodium Level 138 mmol/L (136-145)
== END | disposition home or self-care (01) ==
LOC: POLAB3 10:33
PROVIDERS: PCP Family Medicine Geriatric Medicine; Visit Provider Family Medicine Geriatric Medicine
DX: E87.6 Hypokalemia (principal)
CPT/HCPCS: 36415; 80048

== ENCOUNTER → 2019-07-28 | Outpatient (CLI) | payer MEDICARE, SELFPAY ==
[2018-08-07 13:07] VITALS: BMI 25.7
[2019-05-06 08:26] VITALS: BMI 26.5
== END | disposition home or self-care (01) ==
LOC: SL 14:29
PROVIDERS: PCP Family Medicine Geriatric Medicine; Visit Provider Nurse Practitioner Acute Care
DX: G47.33 Obstructive sleep apnea (adult) (pediatric) (principal)

== ENCOUNTER → 2019-08-07 10:38 | Outpatient (CLI) | payer MEDICARE, SELFPAY ==
[2018-08-07 13:07] VITALS: BMI 25.7
[2019-05-06 08:26] VITALS: BMI 26.5
[2019-08-07 12:52] LABS: Anion Gap 9 (5-15); BUN 12 mg/dL (7-18); BUN/Creat Ratio 10.3 RATIO (10-20); Calcium,Total 8.9 mg/dL (8.5-10.1); Chloride 103 mmol/L (98-107); Creatinine, Serum 1.17 mg/dL (0.70-1.30); EST Glomerular Filtration Rate 65 mL/min (>60); Est Glom Filt Rate - Afr Amer 78 mL/min (>60); Glucose 111 mg/dL (74-106); Potassium 3.7 mmol/L (3.5-5.1); Sodium Level 138 mmol/L (136-145); Thyroid Stim Hormone (TSH) 1.72 uIU/mL (0.358-3.74)
== END ==
PROVIDERS: PCP Family Medicine Geriatric Medicine; Visit Provider Family Medicine Geriatric Medicine
DX: E03.9 Hypothyroidism, unspecified (principal)
CPT/HCPCS: 36415; 80048; 84443

== ENCOUNTER → 2019-11-12 | Outpatient (CLI) | payer MEDICARE, SELFPAY ==
[2018-08-07 13:07] VITALS: BMI 25.7
[2019-05-06 08:26] VITALS: BMI 26.5
[2019-10-26 10:16] VITALS: BMI 25.4
--- NOTE | 2019-11-12 13:12 | CT_ITS ---
STUDY: CT CHEST WITHOUT CONTRAST REASON FOR EXAM: Male, 74 years old. PT STATED F/U TO LUNG MASS, ANNUAL SURVEILLANCE RADIATION DOSAGE (If Supplied By Facility): CTDIvol = ( 12.51 ) mGy, DLP = ( 490.21 ) mGycm TECHNIQUE: Transaxial imaging was performed without the administration of intravenous contrast material. Multiplanar coronal and sagittal images were reformatted. Individualized dose optimization techniques were used for this CT. COMPARISON: Comparison is made with prior study dated 02/26/2019. FINDINGS: Stable 2.1 cm calcified granuloma in the posterior aspect of the left upper lobe. Stable 1 cm noncalcified nodule in the peripheral aspect of the right upper lobe as seen on axial image #125. Stable 2 mm noncalcified nodule in the anterior aspect of the left lower lobe adjacent to the major fissure. There is no demonstrated pleural abnormality. There are calcifications of the coronary arteries. Normal mediastinum. Normal hilar regions. Normal unenhanced pulmonary arteries. There is atherosclerotic calcification of the aortic arch with tortuosity and elongation of the aortic arch and descending thoracic aorta. Normal osseous structures. Small gallstones are seen in the dependent portion of the gallbladder lumen. Calcified splenic granulomas. CT/Chest without Contrast IMPRESSION: Stable examination. Electronically Signed: Germán Wolff, at 14:11 EDT , Service support ,
== END | disposition home or self-care (01) ==
LOC: CT 13:12
PROVIDERS: PCP Family Medicine Geriatric Medicine; Referring Provider Nurse Practitioner Acute Care; Visit Provider Nurse Practitioner Acute Care
DX: R91.8 Other nonspecific abnormal finding of lung field (principal)
CPT/HCPCS: 71250

== ENCOUNTER → 2019-11-25 | Outpatient (CLI) | payer MEDICARE, SELFPAY ==
[2018-08-07 13:07] VITALS: BMI 25.7
[2019-10-26 10:16] VITALS: BMI 25.4
--- NOTE | 2019-11-25 17:03 | CT_ITS ---
STUDY: CT ABDOMEN AND PELVIS WITHOUT CONTRAST REASON FOR EXAM: Male, 74 years old. GROSS HEMATURIA,KS, PAIN W/ URINATION RADIATION DOSAGE (If Supplied By Facility): CTDIvol = ( 10.72 ) mGy, DLP = ( 535.78 ) mGycm TECHNIQUE: Transaxial images were obtained from the dome of the diaphragm to the symphysis pubis without oral contrast, and without intravenous contrast. Sagittal and coronal images were reconstructed. Individualized dose optimization techniques were used for this CT. COMPARISON: None. FINDINGS: The visualized lung bases are unremarkable. The visualized portions of the heart are within normal limits. Normal liver. There is a solitary gallstone. There are multiple benign calcified granulomata of the spleen. Normal pancreas. Normal bilateral adrenal glands. There are no acute abnormalities. No stones. No hydronephrosis. There is suspicious isodense 2.1 cm mass posterior mid right kidney which needs further evaluation. There is a probable 2.9 cm cyst of the mid left kidney which also needs further evaluation. Evaluation of the GI tract is limited by absence of oral contrast. Cannot exclude stomach wall thickening. No dilated loops of bowel or evidence for obstruction. Cannot exclude segmental thickening of the muñoz of the small or large bowel. Cannot exclude enteritis or colitis. Moderate diffuse fecal retention. Appendix within normal limits. There is diffuse atherosclerotic calcification of the abdominal aorta, without a demonstrated aneurysm. Normal inferior vena cava. Normal retroperitoneum. Normal urinary bladder. There is enlargement of the prostate gland. There is a small fat-containing inguinal hernia on the right. There is a small left inguinal hernia within which a short knuckle of bowel is seen without evidence for obstruction. Normal osseous structures. CT/Abdomen/Pelvis without Cont IMPRESSION: No evidence for renal stones or obstruction. Isodense mass of the right kidney. Probable cyst of the left kidney. Further evaluation with contrast CT recommended. Prominently enlarged prostate. Cholelithiasis. Electronically Signed: Len Kaur MD at 17:28 EDT , Service support ,
== END | disposition home or self-care (01) ==
PROVIDERS: PCP Family Medicine Geriatric Medicine; Referring Provider Family Medicine Geriatric Medicine; Visit Provider Family Medicine Geriatric Medicine
DX: N20.0 Calculus of kidney (principal)
CPT/HCPCS: 74176; 87077; 87086; 87088; 87186

== ENCOUNTER → 2019-11-30 | Outpatient (CLI) | payer MEDICARE, SELFPAY ==
[2018-08-07 13:07] VITALS: BMI 25.7
[2019-10-26 10:16] VITALS: BMI 25.4
--- NOTE | 2019-11-30 17:45 | MRI_ITS ---
HISTORY: KIDNEY MASS, F/U CTUTI, no abd pain ADDITIONAL HISTORY: None provided. COMPARISON: CT 11/25/2019 TECHNIQUE: Multiplanar, multisequence MRI of the abdomen was performed without and with 19 mL Dotarem IV contrast FINDINGS: LOWER THORAX: Unremarkable. LIVER: No concerning focal lesion. Decreased signal intensity on opposed phase T1-weighted imaging consistent with steatosis. GALLBLADDER: Small gallstone in the gallbladder. BILE DUCTS: No significant biliary dilatation. KIDNEYS/URETERS: 1.7 x 2.3 cm right renal mass is noted with mildly heterogeneous signal intensity, mildly increased on T2 and decreased on T1. Enhancement is noted after contrast administration. Tiny amount of fat within the lesion (MRI series 1601 and 1602 image 53, MRI series [address] series 2 image 70 and coronal image 76). Tiny amount of gross fat suggests the possibility of lipid poor angiomyolipoma. Renal cell carcinoma can also contain small amounts macroscopic fat. Simple appearing left renal cysts for which no further evaluation is warranted based on consensus guidelines. ADRENAL GLANDS: Unremarkable. SPLEEN: Unremarkable. PANCREAS: Unremarkable. GI TRACT: Unremarkable as imaged. LYMPH NODES: No pathologic appearing adenopathy. FREE FLUID: None. SKELETON AND SOFT TISSUES: No acute findings. MRI/MRI Abd WITH and W/O Contrast IMPRESSION: Enhancing right renal mass compatible with neoplasm, most likely elements of the differential diagnosis included lipid poor angiomyolipoma and renal cell carcinoma.. at 0038 Reported and signed by: Ellie Reed MD Electronically Signed: Ellie Reed MD at 0:38 EDT Tel , Service support ,
[2019-11-30 19:40] LABS: EGFR FINGERSTICK > 60.0000 mL/min (>60)
== END | disposition home or self-care (01) ==
PROVIDERS: PCP Family Medicine Geriatric Medicine; Referring Provider Family Medicine Geriatric Medicine; Visit Provider Family Medicine Geriatric Medicine
DX: N28.9 Disorder of kidney and ureter, unspecified (principal)
CPT/HCPCS: 74183; A9575

== ENCOUNTER → 2019-12-14 | Outpatient (CLI) | payer MEDICARE, SELFPAY ==
[2018-08-07 13:07] VITALS: BMI 25.7
[2019-05-06 08:26] VITALS: BMI 26.5
[2019-10-26 10:16] VITALS: BMI 25.4
[2019-12-14 12:28] LABS: Absolute Lymphocyte Count 1.82 X10^3/uL (0.83-4.51); Absolute Neutrophil Count 2.9 X10^3/uL (2.0-7.7); Basophil# 0.04 X10^3/uL; Basophil% 0.7 % (0-1); Hematocrit 46.3 % (40-54); Hemoglobin 15.5 g/dL (13.0-16.5); Lymphocyte # 1.82 X10^3/ul (4.0); Lymphocyte % 31.8 % (19-41); Mean Corp Hgb Conc 33.5 g/dL (32-36); Mean Corpuscular Volume 95.5 fL (80-94); Mean Platelet Vol. 10.4 fl (6.2-12.0); Monocyte# 0.52 X10^3/uL; Monocyte% 9.1 % (0-10); NRBC Flagged by Analyzer 0 % (0-5); Neutrophil # 2.88 X10^3/uL (2.7-7.7); Neutrophil % 50.4 % (47-70); Platelet Count 222 K/mm3 (150-450); RBC Distribution Width CV 12.4 % (11.6-14.6); RBC Distribution Width SD 43.1 fl (35.1-43.9); Red Blood Count 4.85 M/mm3 (4.6-6.2); White Blood Count 5.7 K/mm3 (4.4-11.0)
[2019-12-14 12:45] LABS: Vitamin D,25 Hydroxy 32.9 ng/mL
[2019-12-14 13:18] LABS: ALB/GLOB Ratio 1.2 RATIO (0.9-2.4); AST(SGOT) 38 U/L (15-37); Alanine Aminotransfer ALT/SGPT 41 U/L (16-61); Albumin, Serum 3.8 g/dL (3.2-5.0); Alkaline Phosphatase 55 U/L (45-117); Anion Gap 8 (5-15); BUN 18 mg/dL (7-18); BUN/Creat Ratio 13.8 RATIO (10-20); Calcium,Total 8.8 mg/dL (8.5-10.1); Chloride 103 mmol/L (98-107); EST Glomerular Filtration Rate 57 mL/min (>60); Est Glom Filt Rate - Afr Amer 69 mL/min (>60); Globulin 3.3 g/dL (2.2-4.2); Glucose 148 mg/dL (74-106); Potassium 3.7 mmol/L (3.5-5.1); Protein, Total 7.1 g/dL (6.4-8.2); Sodium Level 136 mmol/L (136-145); Thyroid Stim Hormone (TSH) 2.08 uIU/mL (0.358-3.74)
== END | disposition home or self-care (01) ==
LOC: POLAB3 09:08
PROVIDERS: PCP Family Medicine Geriatric Medicine; Visit Provider Family Medicine Geriatric Medicine
DX: E55.9 Vitamin D deficiency, unspecified (principal); I10 Essential (primary) hypertension; E87.6 Hypokalemia; F52.8 Other sexual dysfunction not due to a substance or known physiological condition
CPT/HCPCS: 36415; 80053; 82306; 84403; 84443; 85025

== ENCOUNTER → 2019-12-28 | Outpatient (CLI) | payer MEDICARE, SELFPAY ==
[2018-08-07 13:07] VITALS: BMI 25.7
[2019-10-26 10:16] VITALS: BMI 25.4
[2019-12-23 10:03] LABS: Platelet Count 204 K/mm3 (150-450)
[2019-12-23 10:14] LABS: International Normalized Ratio 1.2; Prothrombin Time (Protime)PT. 14.5 SECONDS (11.7-14.9)
[2019-12-23 10:16] LABS: Partial Thromboplast Time 32.2 Seconds (24.1-36.2)
[2019-12-28] VITALS (9 sets, daily range): BP systolic 136–166; BP diastolic 64–91; PULSE 65–78; RESP 12–18; TEMP 36.6; O2SAT 93–99; BMI 25.7
--- NOTE | 2019-12-28 | ASPIGT_PTH ---
PATIENT: CARLEE LEE LOC: [place] U#:[id number] AGE/SX: 74/M ROOM: RE12/28/[address]: Dr. Ciaran Vazquez MD : 1945 BED: DIS: 12/28/2019 SPEC #: [id number] RECD: 12/28/19 11:00 STATUS: KRYSTIN REAbimael #: [id number] ROGE: 12/28/19 00:[address]: Ciaran Vazquez DEPT: SURGICAL PATHOLOGY RECD BY: Hiren Bustamante ENTERED: 12/28/19 11:01 SP TYPE: ASP RAD OTHR DR: Dr. Fox Martinez MD Tissues: Kidney, NOS Procedures: FNA Specimen Adequacy Special Stain Group II Surgery Specimen Level IV Imprint (control) HEADER OPERATION: Right kidney mass, CT-guided core biopsy PRE-OP DIAGNOSIS: Right kidney mass TISSUE SUBMITTED: Right kidney mass MICROSCOPIC DIAGNOSIS Right kidney mass, CT-guided needle core biopsy: Focal arteriosclerosis and nephrosclerosis with associated mild chronic inflammation. No evidence of malignancy. AM:costa 12/29/19 COMMENT The specimen is evaluated at the time of biopsy by Dr. Irving. Immediate Evaluation = Adequate for evaluation. Case has been reviewed in consultation with Dr. Irving who concurs with the above diagnosis. IDC:ANN MARIE MICROSCOPIC DESCRIPTION Slides are reviewed. GROSS DESCRIPTION Received in fixative is one container labeled with the patient's name and designated right kidney mass. The specimen consists of four elongated fragments of canas soft tissue that in aggregate measure 1.5 to 1.8 cm in length and 0.1 cm in diameter. The specimen is totally submitted in one cassette. Two touch imprints are prepared at the time of core biopsy. / ANN MARIE:costa 12/28/19 TC:5 CPT: 21903, 42200
--- NOTE | 2019-12-28 09:09 | CT_ITS ---
PROCEDURE: CT GUIDED PERCUTANEOUS KIDNEY BIOPSY. DATE: 12/28/2019. INDICATION: Male, 74 years old. Indeterminate nodule in the inferior aspect of the right kidney. PHYSICIAN: Germán Wolff M.D. MEDICATIONS: 1 mg of VERSED and 50 mcg of FENTANYL intravenously. Conscious sedation was performed. Conscious sedation was started at 9:57 AM and terminated at 10:30 AM. The patient was independently monitored by the department nurse. ACCESS SITE: Lower pole of the right kidney. NEEDLE: 18-gauge core biopsy needle. SPECIMEN: 4 18-gauge cores. EBL: None. COMPLICATIONS: None immediate. RADIATION DOSAGE (If Supplied By Facility): CTDIvol = ( 16.67 ) mGy, DLP = ( 586.44 ) mGycm. Individualized dose optimization techniques were utilized. The risks, benefits, and alternatives to the procedure and sedation were explained to the patient. The specific risk of hemorrhage requiring further treatment or intervention was detailed and accepted. Written informed consent was obtained. The patient was placed on the CT table in the prone position. Multiple axial images were obtained from the lung base through the caudal extent of the kidneys. An appropriate entry site was identified and a lelia made on the skin. The skin overlying the [right lower ] posterior flank was prepped and draped in sterile fashion. 1% lidocaine was administered subcutaneously for local anesthesia. Initially, a 22 gauge needle was advanced and CT images confirmed good needle position. The 22 gauge needle was then exchanged for an 17 gauge introducer needle which was advanced. Repeat CT images confirmed good needle trajectory and tip position. The introducer needle was then advanced into the periphery of the inferior renal pole, and CT images were again obtained to confirm exact tip location. The inner stylet of the introducer needle was then removed and an 18 gauge coaxial needle was advanced thru the introducer needle and biopsy performed. A total of [4 ] passes were performed and the specimen collected was sent to Pathology for further evaluation. The needle was withdrawn. Hemostasis was achieved with manual compression and a sterile dressing was applied. Repeat CT images of the biopsy area was performed which demonstrated no gross bleeding or hematoma. The patient tolerated the procedure well without immediate complications. The patient was transported to the [floor/recovery area] in stable condition. CT/Biopsy/Inj or Needle Placement IMPRESSION: Successful CT guided percutaneous kidney biopsy. Electronically Signed: Germán Wolff, at 12:16 EDT , Service support ,
[2019-12-28] MEDS: Midazolam 2 MG/2 ML Syringe IV (09:57)
[2019-12-28] MEDS: fentaNYL 100 MCG/2 ML Ampul IV (09:59)
== END | disposition home or self-care (01) ==
LOC: CT 09:05
PROVIDERS: PCP Family Medicine Geriatric Medicine; Referring Provider Urology; Visit Provider Urology
DX: Z01.818 Encounter for other preprocedural examination (principal); N28.89 Other specified disorders of kidney and ureter
CPT/HCPCS: 50200; 36415; 77012; 85049; 85610; 85730; 88172; 88305; 88313; 99155; 99156; 99157; J7040

== ENCOUNTER → 2020-06-16 10:43 | Outpatient (CLI) | payer MEDICARE, SELFPAY ==
[2018-08-07 13:07] VITALS: BMI 25.7
[2020-04-27 11:02] VITALS: BMI 26.4
[2020-06-16 12:20] LABS: Basophil# 0.05 X10^3/uL; Basophil% 0.9 % (0-1); Eosinophil# 0.49 X10^3/uL; Eosinophils% 8.4 % (0-5); Hematocrit 48.3 % (40-54); Hemoglobin 15.7 g/dL (13.0-16.5); Lymphocyte % 27.5 % (19-41); Mean Corp Hgb Conc 32.5 g/dL (32-36); Mean Corpuscular Hgb 31.7 pg (27.0-32.0); Mean Corpuscular Volume 97.6 fL (80-94); Mean Platelet Vol. 10.3 fl (6.2-12.0); Monocyte# 0.62 X10^3/uL; Monocyte% 10.7 % (0-10); NRBC Flagged by Analyzer 0 % (0-5); Neutrophil # 3.02 X10^3/uL (2.7-7.7); Neutrophil % 51.8 % (47-70); Platelet Count 223 K/mm3 (150-450); RBC Distribution Width CV 12.5 % (11.6-14.6); RBC Distribution Width SD 44.3 fl (35.1-43.9); Red Blood Count 4.95 M/mm3 (4.6-6.2); White Blood Count 5.8 K/mm3 (4.4-11.0)
[2020-06-16 12:30] LABS: Vitamin D,25 Hydroxy 28.8 ng/mL
[2020-06-16 12:40] LABS: AST(SGOT) 32 U/L (15-37); Alanine Aminotransfer ALT/SGPT 49 U/L (16-61); Albumin, Serum 3.9 g/dL (3.2-5.0); Alkaline Phosphatase 57 U/L (45-117); Anion Gap 5 (5-15); BUN 19 mg/dL (7-18); Calcium,Total 8.9 mg/dL (8.5-10.1); Chloride 105 mmol/L (98-107); Creatinine, Serum 1.19 mg/dL (0.70-1.30); EST Glomerular Filtration Rate 63 mL/min (>60); Est Glom Filt Rate - Afr Amer 76 mL/min (>60); Globulin 3.9 g/dL (2.2-4.2); Glucose 109 mg/dL (74-106); Protein, Total 7.8 g/dL (6.4-8.2); Sodium Level 138 mmol/L (136-145); Thyroid Stim Hormone (TSH) 2.26 uIU/mL (0.358-3.74)
== END ==
PROVIDERS: PCP Family Medicine Geriatric Medicine; Visit Provider Family Medicine Geriatric Medicine
DX: E55.9 Vitamin D deficiency, unspecified (principal); F52.8 Other sexual dysfunction not due to a substance or known physiological condition; I10 Essential (primary) hypertension
CPT/HCPCS: 36415; 80053; 82306; 84403; 84443; 85025

== ENCOUNTER → 2020-12-22 11:37 | Outpatient (CLI) | payer MEDICARE, SELFPAY ==
[2018-08-07 13:07] VITALS: BMI 25.7
[2020-12-22 12:30] LABS: Absolute Neutrophil Count 3.2 X10^3/uL (2.0-7.7); Basophil# 0.03 X10^3/uL; Basophil% 0.5 % (0-1); Eosinophil# 0.47 X10^3/uL; Eosinophils% 7.4 % (0-5); Hematocrit 42.9 % (40-54); Hemoglobin 14.4 g/dL (13.0-16.5); Lymphocyte % 31.3 % (19-41); Mean Corp Hgb Conc 33.6 g/dL (32-36); Mean Corpuscular Hgb 31.9 pg (27.0-32.0); Mean Corpuscular Volume 94.9 fL (80-94); Mean Platelet Vol. 10.3 fl (6.2-12.0); Monocyte# 0.68 X10^3/uL; Monocyte% 10.7 % (0-10); NRBC Flagged by Analyzer 0 % (0-5); Neutrophil # 3.15 X10^3/uL (2.7-7.7); Neutrophil % 49.3 % (47-70); Platelet Count 216 K/mm3 (150-450); RBC Distribution Width CV 11.9 % (11.6-14.6); RBC Distribution Width SD 41.4 fl (35.1-43.9); Red Blood Count 4.52 M/mm3 (4.6-6.2); White Blood Count 6.4 K/mm3 (4.4-11.0)
[2020-12-22 12:54] LABS: Vitamin D,25 Hydroxy 29.5 ng/mL
[2020-12-22 13:24] LABS: AST(SGOT) 29 U/L (15-37); Alanine Aminotransfer ALT/SGPT 46 U/L (16-61); Albumin, Serum 3.8 g/dL (3.2-5.0); Alkaline Phosphatase 53 U/L (45-117); Anion Gap 7 (5-15); BUN 33 mg/dL (7-18); Calcium,Total 9.2 mg/dL (8.5-10.1); Chloride 105 mmol/L (98-107); Creatinine, Serum 1.57 mg/dL (0.70-1.30); EST Glomerular Filtration Rate 46 mL/min (>60); Est Glom Filt Rate - Afr Amer 55 mL/min (>60); Globulin 3.8 g/dL (2.2-4.2); Glucose 114 mg/dL (74-106); Potassium 4.2 mmol/L (3.5-5.1); Protein, Total 7.6 g/dL (6.4-8.2); Sodium Level 140 mmol/L (136-145)
== END ==
PROVIDERS: PCP Family Medicine Geriatric Medicine; Visit Provider Family Medicine Geriatric Medicine
DX: E55.9 Vitamin D deficiency, unspecified (principal); F52.8 Other sexual dysfunction not due to a substance or known physiological condition; I10 Essential (primary) hypertension
CPT/HCPCS: 36415; 80053; 82306; 84403; 84443; 85025

== ENCOUNTER → 2020-12-27 11:11 | Outpatient (CLI) | payer MEDICARE, SELFPAY ==
[2018-08-07 13:07] VITALS: BMI 25.7
[2020-12-27 11:54] LABS: BUN 27 mg/dL (7-18); BUN/Creat Ratio 18.6 RATIO (10-20); Calcium,Total 9.4 mg/dL (8.5-10.1); Chloride 103 mmol/L (98-107); Creatinine, Serum 1.45 mg/dL (0.70-1.30); EST Glomerular Filtration Rate 50 mL/min (>60); Est Glom Filt Rate - Afr Amer 61 mL/min (>60); Glucose 105 mg/dL (74-106); Phosphorus 2.6 mg/dL (2.5-4.9); Potassium 4.2 mmol/L (3.5-5.1); Sodium Level 139 mmol/L (136-145)
== END ==
PROVIDERS: PCP Family Medicine Geriatric Medicine; Visit Provider Internal Medicine Nephrology
DX: N18.31 Chronic kidney disease, stage 3a (principal)
CPT/HCPCS: 36415; 80069

== ENCOUNTER → 2021-01-09 13:02 | Outpatient (CLI) | payer MEDICARE, SELFPAY ==
[2018-08-07 13:07] VITALS: BMI 25.7
--- NOTE | 2021-01-09 13:17 | CT_ITS ---
STUDY: CT ABDOMEN AND PELVIS WITH CONTRAST REASON FOR EXAM: Male, 75 years old. NEOPLASM OF UNCERTAIN BEHAVIOR OR R KIDNEY RADIATION DOSAGE (If Supplied By Facility): CTDIvol = ( 20.76 ) mGy, DLP = ( 1704.32 ) mGycm TECHNIQUE: Transaxial images were obtained from the dome of the diaphragm to the symphysis pubis without oral contrast. IV 100mL Isovue-300 was administered. Sagittal and coronal images were reconstructed. Individualized dose optimization techniques were used for this CT. COMPARISON: Comparison is made with prior examination of 11/25/2019. FINDINGS: 2 mm noncalcified nodule along the lateral aspect of the right lower lobe. This was not imaged on prior examination. Coronary artery calcification. There is decreased attenuation of the liver consistent with steatosis. There are multiple small gallstones. There are multiple benign calcified granulomata of the spleen. Normal pancreas. Normal bilateral adrenal glands. Stable 2.2 cm x 1.4 cm isodense nodular density projecting along the posterior midportion of the right kidney. This is unchanged. There is a 2.4 cm cyst in the posterior medial aspect of the left kidney. There is a 1 cm cyst in the upper lateral aspect of the left kidney. Normal visualized stomach. Normal small intestine. Normal colon. The appendix is visualized and appears normal. There is diffuse atherosclerotic calcification of the abdominal aorta and its major visceral branches, without a demonstrated aneurysm. Normal inferior vena cava. Normal retroperitoneum. Normal urinary bladder. There is enlargement of the prostate gland. It measures 5.4 cm x 5 cm. Small bilateral inguinal hernias containing fat. There are degenerative changes of the visualized lumbar spine. CT/Abdomen/Pelvis W IV Cont ONLY IMPRESSION: Stable 2.2 cm x 1.4 cm isodense nodule projected along the posterior midportion of the right kidney. Electronically Signed: Germán Wolff MD at 15:39 EDT , Service support ,
== END ==
LOC: CT 13:03
PROVIDERS: PCP Family Medicine Geriatric Medicine; Referring Provider Urology; Visit Provider Urology
DX: D41.01 Neoplasm of uncertain behavior of right kidney (principal)
CPT/HCPCS: 74177; Q9967

== ENCOUNTER 2021-03-27 12:11 | Outpatient (CLI) | payer MEDICARE, SELFPAY ==
[2018-08-07 13:07] VITALS: BMI 25.7
== END 2021-03-27 23:59 | disposition short-term general hospital (02) ==
LOC: PSN 12:12
PROVIDERS: PCP Family Medicine Geriatric Medicine; Referring Provider Family Medicine Geriatric Medicine; Visit Provider Family Medicine Geriatric Medicine
DX: R68.83 Chills (without fever) (principal)
CPT/HCPCS: 87635; 87804; 87807; C9803; U0003; U0005

== ENCOUNTER 2021-05-01 09:34 | Outpatient (CLI) | payer MEDICARE, SELFPAY ==
[2018-08-07 13:07] VITALS: BMI 25.7
[2021-05-01 10:21] LABS: Hemoglobin 13.9 g/dL (13.0-16.5); Mean Corp Hgb Conc 33.9 g/dL (32-36); Mean Corpuscular Hgb 32.7 pg (27.0-32.0); Mean Corpuscular Volume 96.5 fL (80-94); Mean Platelet Vol. 9.2 fl (6.2-12.0); Platelet Count 233 K/mm3 (150-450); RBC Distribution Width CV 13.2 % (11.6-14.6); RBC Distribution Width SD 46.5 fl (35.1-43.9); Red Blood Count 4.25 M/mm3 (4.6-6.2); White Blood Count 7.2 K/mm3 (4.4-11.0)
[2021-05-01 10:57] LABS: Albumin, Serum 4.1 g/dL (3.2-5.0); BUN 17 mg/dL (7-18); BUN/Creat Ratio 10.9 RATIO (10-20); Calcium,Total 9.3 mg/dL (8.5-10.1); Chloride 105 mmol/L (98-107); Creatinine, Serum 1.56 mg/dL (0.70-1.30); EST Glomerular Filtration Rate 46 mL/min (>60); Est Glom Filt Rate - Afr Amer 56 mL/min (>60); Glucose 103 mg/dL (74-106); Phosphorus 2.8 mg/dL (2.5-4.9); Potassium 4.3 mmol/L (3.5-5.1); Sodium Level 138 mmol/L (136-145)
== END 2021-05-01 23:59 | disposition home or self-care (01) ==
LOC: LAB 09:35
PROVIDERS: PCP Family Medicine Geriatric Medicine; Visit Provider Internal Medicine Nephrology
DX: N18.31 Chronic kidney disease, stage 3a (principal)
CPT/HCPCS: 36415; 80069; 85027

== ENCOUNTER 2021-05-08 13:13 | Outpatient (CLI) | payer MEDICARE, SELFPAY ==
[2018-08-07 13:07] VITALS: BMI 25.7
--- NOTE | 2021-05-08 13:26 | ECHOD_ITS ---
Reason For Study: Murmur Procedure This was a 2D Doppler, Color Flow transthoracic echocardiogram. Exam performed in department. Left Ventricle Normal LV size. Sigmoid septum. Left ventricular systolic function is normal. The estimated ejection fraction is 60 %. Diastolic function is indeterminate. No regional wall motion abnormalities noted. Right Ventricle Normal RV size. Normal systolic function. Atria Normal left atrium. Normal right atrium. No doppler evidence for ASD. Mitral Valve There is mild to moderate mitral annular calcification. Extension of the mitral annular calcification onto the base of the posterior mitral valve leaflet. Mild (1+) mitral valve insufficiency. Tricuspid Valve Normal tricuspid valve. Trivial tricuspid valve insufficiency. Right ventricular systolic pressure estimated to be 25 mmHg. Aortic Valve Trisinus/trileaflet aortic valve. Mild diffuse aortic valve thickening. Mild diffuse aortic valve calcification. Mild aortic stenosis. Trivial aortic valve insufficiency. Pulmonic Valve The pulmonic valve is not well visualized. Trivial pulmonic valve insufficiency. Great Vessels Normal sized aortic root. Pericardium/Pleural No pericardial effusion. MMode/2D Measurements & Calculations LVIDd: 4.8 cm IVSd: 1.4 cm LVOT diam: 2.2 cm LVIDs: 2.8 cm LVPWd: 1.0 cm LVOT area: 3.9 cm2 RVDd: 4.1 cm FS: 41.3 % Ao root diam: 3.4 cm LAV(MOD-bp): 46.7 ml LVAd ap4: 26.3 cm2 LAV(MOD-bp) Indexed: 22.1 ml/m2 LVLd ap4: 7.5 cm LAV(MOD-sp2): 53.5 ml EDV(MOD-sp4): 75.9 ml LAV(MOD-sp4): 41.3 ml EDV(sp4-el): 78.8 ml LVAs ap4: 16.4 cm2 LVLs ap4: 6.8 cm ESV(MOD-sp4): 34.6 ml ESV(sp4-el): 33.7 ml EF(MOD-sp4): 54.4 % EF(sp4-el): 57.2 % SV(MOD-sp4): 41.3 ml SV(sp4-el): 45.1 ml LA A4 area: 16.7 cm2 LA dimension(2D): 4.1 cm RA A4 area: 15.4 cm2 Doppler Measurements & Calculations MV E max donald: 78.9 cm/sec Lat Peak E' Donald: 5.6 cm/sec Med Peak E' Donald: 4.0 cm/sec MV A max donald: 97.8 cm/sec E/E' lat: 14.2 E/E' med: 19.7 MV E/A: 0.81 Ao V2 max: 210.8 cm/sec AI max donald: 411.8 cm/sec LV V1 max: 90.7 cm/sec Ao max P.8 mmHg AI max P.8 mmHg LV V1 max P.3 mmHg Ao V2 mean: 154.0 cm/sec LV V1 mean P.1 mmHg Ao mean P.3 mmHg AI dec slope: 202.4 cm/sec2 LV V1 mean: 70.3 cm/sec Ao V2 VTI: 48.3 cm AI P1/2t: 595.9 msec LV V1 VTI: 24.1 cm RAFFAELE(I,D): 1.9 cm2 RAFFAELE(V,D): 1.7 cm2 SV(LVOT): 93.6 ml PA V2 max: 71.3 cm/sec PI end-d donald: 75.1 cm/sec TR max donald: 233.4 cm/sec TR max P.8 mmHg ECHO/Echo Complete Interpretation Summary Left ventricular systolic function is normal. The estimated ejection fraction is 60 %. Sigmoid septum. There is mild to moderate mitral annular calcification. Extension of the mitral annular calcification onto the base of the posterior mi tral valve leaflet. Mild (1+) mitral valve insufficiency. Trivial tricuspid valve insufficiency. Mild aortic stenosis. Trivial aortic valve insufficiency. Trivial pulmonic valve insufficiency. Right ventricular systolic pressure estimated to be 25 mmHg. Diastolic function is indeterminate. Ordering Physician: Wesly Chan Referring Physician: Fox Martinez Chi Performed By: Beatrice Mae, KEVINCS, RVT
== END 2021-05-08 23:59 | disposition home or self-care (01) ==
LOC: CVS 13:23
PROVIDERS: PCP Family Medicine Geriatric Medicine; Referring Provider Internal Medicine Cardiovascular Disease; Visit Provider Internal Medicine Cardiovascular Disease
DX: R06.09 Other forms of dyspnea (principal); I35.0 Nonrheumatic aortic (valve) stenosis
CPT/HCPCS: 93306

== ENCOUNTER 2021-06-05 16:58 | Outpatient (CLI) | payer MEDICARE, SELFPAY ==
[2018-08-07 13:07] VITALS: BMI 25.7
== END 2021-06-05 23:59 | disposition home or self-care (01) ==
LOC: LABSPEC 16:59
PROVIDERS: PCP Family Medicine Geriatric Medicine; Referring Provider Urology; Visit Provider Urology
DX: N30.00 Acute cystitis without hematuria (principal)
CPT/HCPCS: 87086; 87088; 87186

== ENCOUNTER 2021-06-22 08:56 | Outpatient (CLI) | payer MEDICARE, SELFPAY ==
[2018-08-07 13:07] VITALS: BMI 25.7
[2021-06-22 11:52] LABS: Absolute Lymphocyte Count 1.76 X10^3/uL (0.83-4.51); Absolute Neutrophil Count 3.1 X10^3/uL (2.0-7.7); Basophil# 0.04 X10^3/uL; Basophil% 0.7 % (0-1); Eosinophil# 0.41 X10^3/uL; Hematocrit 41.1 % (40-54); Hemoglobin 13.8 g/dL (13.0-16.5); Lymphocyte # 1.76 X10^3/ul (0.83-4.51); Lymphocyte % 30.2 % (19-41); Mean Corp Hgb Conc 33.6 g/dL (32-36); Mean Corpuscular Hgb 32.9 pg (27.0-32.0); Mean Corpuscular Volume 98.1 fL (80-94); Mean Platelet Vol. 10.1 fl (6.2-12.0); Monocyte# 0.49 X10^3/uL; Monocyte% 8.4 % (0-10); NRBC Flagged by Analyzer 0 % (0-5); Neutrophil # 3.09 X10^3/uL (2.7-7.7); Platelet Count 215 K/mm3 (150-450); RBC Distribution Width CV 12.6 % (11.6-14.6); RBC Distribution Width SD 45.7 fl (35.1-43.9); Red Blood Count 4.19 M/mm3 (4.6-6.2); White Blood Count 5.8 K/mm3 (4.4-11.0)
[2021-06-22 12:06] LABS: Vitamin D,25 Hydroxy 33.2 ng/mL
[2021-06-22 12:18] LABS: ALB/GLOB Ratio 1.1 RATIO (0.9-2.4); AST(SGOT) 24 U/L (15-37); Alanine Aminotransfer ALT/SGPT 30 U/L (16-61); Albumin, Serum 3.9 g/dL (3.2-5.0); Alkaline Phosphatase 48 U/L (45-117); Anion Gap 7 (5-15); BUN 24 mg/dL (7-18); BUN/Creat Ratio 14.6 RATIO (10-20); Chloride 111 mmol/L (98-107); Creatinine, Serum 1.64 mg/dL (0.70-1.30); EST Glomerular Filtration Rate 43 mL/min (>60); Est Glom Filt Rate - Afr Amer 53 mL/min (>60); Globulin 3.5 g/dL (2.2-4.2); Glucose 129 mg/dL (74-106); Potassium 4.2 mmol/L (3.5-5.1); Protein, Total 7.4 g/dL (6.4-8.2); Sodium Level 141 mmol/L (136-145); Thyroid Stim Hormone (TSH) 2.42 uIU/mL (0.358-3.74)
== END 2021-06-22 23:59 | disposition home or self-care (01) ==
LOC: POLAB3 08:57
PROVIDERS: PCP Family Medicine Geriatric Medicine; Visit Provider Family Medicine Geriatric Medicine
DX: E55.9 Vitamin D deficiency, unspecified (principal); F52.8 Other sexual dysfunction not due to a substance or known physiological condition; I10 Essential (primary) hypertension
CPT/HCPCS: 36415; 80053; 82306; 84403; 84443; 85025

== ENCOUNTER → 2021-10-23 | Outpatient (CLI) | payer MEDICARE, SELFPAY ==
[2018-08-07 13:07] VITALS: BMI 25.7
[2021-10-23 11:38] LABS: Albumin, Serum 3.9 g/dL (3.2-5.0); BUN 22 mg/dL (7-18); BUN/Creat Ratio 14.4 RATIO (10-20); Calcium,Total 9.1 mg/dL (8.5-10.1); Chloride 109 mmol/L (98-107); Creatinine, Serum 1.53 mg/dL (0.70-1.30); EST Glomerular Filtration Rate 47 mL/min (>60); Est Glom Filt Rate - Afr Amer 57 mL/min (>60); Glucose 105 mg/dL (74-106); Potassium 4.3 mmol/L (3.5-5.1); Sodium Level 140 mmol/L (136-145)
== END | disposition home or self-care (01) ==
LOC: LAB 10:29
PROVIDERS: PCP Family Medicine Geriatric Medicine; Visit Provider Internal Medicine Nephrology
DX: N18.31 Chronic kidney disease, stage 3a (principal)
CPT/HCPCS: 36415; 80069

== ENCOUNTER → 2021-11-15 | Outpatient (CLI) | payer MEDICARE, SELFPAY ==
[2018-08-07 13:07] VITALS: BMI 25.7
[2021-11-15 11:46] LABS: Albumin, Serum 3.8 g/dL (3.2-5.0); BUN 17 mg/dL (7-18); BUN/Creat Ratio 12.5 RATIO (10-20); Chloride 109 mmol/L (98-107); Creatinine, Serum 1.36 mg/dL (0.70-1.30); EST Glomerular Filtration Rate 54 mL/min (>60); Est Glom Filt Rate - Afr Amer 65 mL/min (>60); Glucose 100 mg/dL (74-106); Phosphorus 2.8 mg/dL (2.5-4.9); Potassium 3.9 mmol/L (3.5-5.1); Sodium Level 141 mmol/L (136-145)
== END | disposition home or self-care (01) ==
LOC: LAB 10:33
PROVIDERS: PCP Family Medicine Geriatric Medicine; Referring Provider Internal Medicine Nephrology; Visit Provider Internal Medicine Nephrology
DX: N18.31 Chronic kidney disease, stage 3a (principal); N17.9 Acute kidney failure, unspecified
CPT/HCPCS: 36415; 80069

== ENCOUNTER → 2021-11-23 | Outpatient (CLI) | payer MEDICARE, SELFPAY ==
[2018-08-07 13:07] VITALS: BMI 25.7
--- NOTE | 2021-11-23 07:37 | RDU_ITS ---
Reason For Study: acute renal failure Right Renal Artery Left Renal Artery Right renal artery ostium Left renal artery ostium 85.3/20.5 289.8/40.8 RSV/EDV. PSV/EDV. Right renal artery proximal Left renal artery proximal PSV/EDV 172.5/36.4 PSV/EDV. 134.5/23.1 . Right renal artery mid 168.2/38.6 Left renal artery mid 142.3/17.9 PSV/EDV. PSV/EDV . Right renal artery distal 81.5/24.8 Left renal artery distal 142.3/30.8 PSV/EDV. PSV/EDV. Right RAR 3.4. Left RAR 1.7. Right Renal Parenchyma Left Renal Parenchyma Upper Pole Medula 26.8/7.1 PSV/EDV. Left upper pole medulla 30.2/5.0 Right upper pole medulla EDR .27 . PSV/EDV . Right upper pole medulla R.I. .73 . Left upper pole medulla EDR .17 . Upper Jalil Cortx 17.0/4.7 PSV/EDV. Left upper pole medulla R.I. .83 . Right upper pole cortex EDR .28 . UP Cortex 32.1/6.3 PSV/EDV. Right upper pole cortex R.I. .72 . Left upper pole cortex EDR .2 . Right lower Pole medulla 31.1/9.6 Left upper pole cortex R.I. .8 . PSV/EDV . Left lower Pole medulla 35.7/9.3 Right lower pole medulla EDR .31 . PSV/EDV . Right lower pole medulla R.I. .69 . Left lower pole medulla EDR .26 . Lower Pole Cortex 13.3/5.3 PSV/EDV. Left lower pole medulla R.I. .74 . Right lower pole cortex EDR .4 . Lower Pole Cortx 21.0/5.0 PSV/EDV. Right lower pole cortex R.I. .6 . Left lower pole cortex EDR .24 . Right Renal Hilar Left lower pole cortex R.I. .76 . Right hilar acceleration time 80 Left Renal Hilar m/sec. LT Hilar avg 71.5/17.1 PSV/EDV . Right Hilar avg 32.9/9.6 PSV/EDV. Left hilar acceleration time 40 Right Renal Dimensions m/sec. Right kidney size 10.8 cm . Left Renal Dimensions Right cortical dimension 1.14 cm . Left kidney size 11.4 cm . Left cortical dimension 1.24 cm . Aorta Proximal abdominal aorta 1.31 x 1.24 cm . Proximal abdominal aorta peak systolic velocity is 86.0 cm/sec . Distal abdominal aorta 1.22 x 1.42 cm . Distal abdominal aorta peak systolic velocity is 78.2 cm/sec . Normal renal veins bilat. VL/Renal Artery Duplex Ultrasound Interpretation Summary Dimensions of the intra-abdominal aorta appear normal, without evidence of aneu rysmal dilatation. Right renal artery velocities are elevated. Left renal artery velocities are no rmal. Acceleration times are normal bilaterally. Renal-aortic ratios are also bilaterally normal. There is evidence of mild renal artery stenosis on the right, appearing to be <60%. There is no evid ence of significant renal artery stenosis on the left. Cortical dimensions are bilaterally normal. Kidneys appear normal in size bilaterally. Ordering Physician: Amita Brenner Referring Physician: Amita Brenner Performed By: Raul Euceda RVT
== END | disposition home or self-care (01) ==
LOC: CVS 07:34
PROVIDERS: PCP Family Medicine Geriatric Medicine; Referring Provider Internal Medicine Nephrology; Visit Provider Internal Medicine Nephrology
DX: N17.9 Acute kidney failure, unspecified (principal)
CPT/HCPCS: 93975

== ENCOUNTER → 2021-11-29 | Outpatient (CLI) | payer MEDICARE, SELFPAY ==
[2018-08-07 13:07] VITALS: BMI 25.7
== END | disposition home or self-care (01) ==
LOC: PSN 09:26
PROVIDERS: PCP Family Medicine Geriatric Medicine; Referring Provider Family Medicine Geriatric Medicine; Visit Provider Family Medicine Geriatric Medicine
DX: R68.83 Chills (without fever) (principal); Z20.822 Contact with and (suspected) exposure to COVID-19
CPT/HCPCS: 87426; 87804; 87807; C9803

== ENCOUNTER → 2021-12-07 | Outpatient (CLI) | payer MEDICARE, SELFPAY ==
[2018-08-07 13:07] VITALS: BMI 25.7
[2021-12-07 10:44] LABS: Albumin, Serum 3.9 g/dL (3.2-5.0); BUN 20 mg/dL (7-18); BUN/Creat Ratio 14.1 RATIO (10-20); Calcium,Total 9.2 mg/dL (8.5-10.1); Chloride 107 mmol/L (98-107); Creatinine, Serum 1.42 mg/dL (0.70-1.30); EST Glomerular Filtration Rate 51 mL/min (>60); Est Glom Filt Rate - Afr Amer 62 mL/min (>60); Glucose 97 mg/dL (74-106); Phosphorus 2.5 mg/dL (2.5-4.9); Potassium 3.9 mmol/L (3.5-5.1); Sodium Level 141 mmol/L (136-145)
== END | disposition home or self-care (01) ==
LOC: LAB 08:57
PROVIDERS: PCP Family Medicine Geriatric Medicine; Visit Provider Internal Medicine Nephrology
DX: N18.31 Chronic kidney disease, stage 3a (principal)
CPT/HCPCS: 36415; 80069

== ENCOUNTER → 2021-12-21 | Outpatient (CLI) | payer MEDICARE, SELFPAY ==
[2018-08-07 13:07] VITALS: BMI 25.7
[2021-12-21 14:51] LABS: Absolute Lymphocyte Count 1.72 X10^3/uL (0.83-4.51); Absolute Neutrophil Count 1.9 X10^3/uL (2.0-7.7); Basophil# 0.04 X10^3/uL; Basophil% 0.9 % (0-1); Eosinophil# 0.49 X10^3/uL; Eosinophils% 10.4 % (0-5); Hematocrit 43.9 % (40-54); Hemoglobin 14.6 g/dL (13.0-16.5); Lymphocyte # 1.72 X10^3/ul (0.83-4.51); Lymphocyte % 36.6 % (19-41); Mean Corp Hgb Conc 33.3 g/dL (32-36); Mean Corpuscular Hgb 32.4 pg (27.0-32.0); Mean Corpuscular Volume 97.6 fL (80-94); Mean Platelet Vol. 10.7 fl (6.2-12.0); Monocyte% 10.6 % (0-10); NRBC Flagged by Analyzer 0 % (0-5); Neutrophil # 1.94 X10^3/uL (2.7-7.7); Neutrophil % 41.3 % (47-70); Platelet Count 197 K/mm3 (150-450); RBC Distribution Width CV 12.2 % (11.6-14.6); RBC Distribution Width SD 43.6 fl (35.1-43.9); White Blood Count 4.7 K/mm3 (4.4-11.0)
[2021-12-21 16:36] LABS: ALB/GLOB Ratio 1.1 RATIO (0.9-2.4); AST(SGOT) 34 U/L (15-37); Alanine Aminotransfer ALT/SGPT 44 U/L (16-61); Alkaline Phosphatase 55 U/L (45-117); Anion Gap 9 (5-15); BUN 16 mg/dL (7-18); BUN/Creat Ratio 10.7 RATIO (10-20); Calcium,Total 9.2 mg/dL (8.5-10.1); Chloride 107 mmol/L (98-107); Creatinine, Serum 1.49 mg/dL (0.70-1.30); EST Glomerular Filtration Rate 49 mL/min (>60); Est Glom Filt Rate - Afr Amer 59 mL/min (>60); Globulin 3.6 g/dL (2.2-4.2); Glucose 121 mg/dL (74-106); Potassium 3.9 mmol/L (3.5-5.1); Protein, Total 7.6 g/dL (6.4-8.2); Sodium Level 141 mmol/L (136-145); Thyroid Stim Hormone (TSH) 1.46 uIU/mL (0.358-3.74)
== END | disposition home or self-care (01) ==
LOC: POLAB3 09:30
PROVIDERS: PCP Family Medicine Geriatric Medicine; Visit Provider Family Medicine Geriatric Medicine
DX: I10 Essential (primary) hypertension (principal); E55.9 Vitamin D deficiency, unspecified; F52.8 Other sexual dysfunction not due to a substance or known physiological condition
CPT/HCPCS: 36415; 80053; 82306; 84403; 84443; 85025

== ENCOUNTER → 2022-01-11 | Outpatient (CLI) | payer MEDICARE, SELFPAY ==
[2018-08-07 13:07] VITALS: BMI 25.7
--- NOTE | 2022-01-11 08:48 | ART_ITS ---
Reason For Study: CLAUDICATION Left Segmental Pressures Left brachial= 158mmHg. Left posterior tibial artery = 114mmHg. Left dorsalis pedis artery = 130mmHg. The left posterior tibial artery waveforms are biphasic. The left dorsalis pedis waveforms are biphasic. Right Segmental Pressures Right brachial= 158mmHg. Right posterior tibial artery = 155mmHg. Right dorsalis pedis artery = 117mmHg. The right posterior tibial artery waveforms are biphasic. The right dorsalis pedis waveforms are biphasic. Indices The right ankle brachial index by the posterior tibial artery is 0.98. The right ankle brachial index by the dorsalis pedis is 0.74. The left ankle brachial index by the posterior tibial artery is 0.72. The left ankle brachial index by the dorsalis pedis is 0.82. VL/Ankle Brachial Index Interpretation Summary Biphasic Doppler waveforms are noted at ankle level bilaterally. Pulse-volume r ecordings appear satisfactory at ankle level bilaterally. The resting right ankle-brachial index is normal. The resting left ankle-brachial index is mildly diminished. Arterial flow appears normal at ankle level on the right. Arterial flow appears mildly diminished at ankle level on the left. 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 Ordering Physician: Fox Martinez Chi Referring Physician: FOX MARTINEZ CHI, MD Performed By: Miguel Angel Babb RVT
== END | disposition home or self-care (01) ==
PROVIDERS: PCP Family Medicine Geriatric Medicine; Referring Provider Family Medicine Geriatric Medicine; Visit Provider Family Medicine Geriatric Medicine
DX: I73.9 Peripheral vascular disease, unspecified (principal)
CPT/HCPCS: 93922

== ENCOUNTER → 2022-06-07 | Outpatient (CLI) | payer MEDICARE, SELFPAY ==
[2018-08-07 13:07] VITALS: BMI 25.7
[2022-06-07 09:44] LABS: BUN 20 mg/dL (7-18); Calcium,Total 9.1 mg/dL (8.5-10.1); Chloride 104 mmol/L (98-107); Creatinine, Serum 1.33 mg/dL (0.70-1.30); EST Glomerular Filtration Rate 55 mL/min (>60); Est Glom Filt Rate - Afr Amer 67 mL/min (>60); Glucose 111 mg/dL (74-106); Phosphorus 2.6 mg/dL (2.5-4.9); Potassium 4.2 mmol/L (3.5-5.1); Sodium Level 140 mmol/L (136-145)
== END | disposition home or self-care (01) ==
LOC: LAB 08:28
PROVIDERS: PCP Family Medicine Geriatric Medicine; Referring Provider Internal Medicine Nephrology; Visit Provider Internal Medicine Nephrology
DX: N18.31 Chronic kidney disease, stage 3a (principal)
CPT/HCPCS: 36415; 80069

== ENCOUNTER → 2022-06-25 | Outpatient (CLI) | payer MEDICARE, SELFPAY ==
[2018-08-07 13:07] VITALS: BMI 25.7
[2022-06-25 12:31] LABS: Absolute Lymphocyte Count 1.73 X10^3/uL (0.83-4.51); Absolute Neutrophil Count 2.5 X10^3/uL (2.0-7.7); Basophil# 0.05 X10^3/uL; Basophil% 0.9 % (0-1); Eosinophils% 9.4 % (0-5); Hematocrit 45.6 % (40-54); Hemoglobin 15.2 g/dL (13.0-16.5); Lymphocyte # 1.73 X10^3/ul (0.83-4.51); Lymphocyte % 32.5 % (19-41); Mean Corp Hgb Conc 33.3 g/dL (32-36); Mean Corpuscular Hgb 32.1 pg (27.0-32.0); Mean Corpuscular Volume 96.4 fL (80-94); Mean Platelet Vol. 10.5 fl (6.2-12.0); Monocyte# 0.51 X10^3/uL; Monocyte% 9.6 % (0-10); NRBC Flagged by Analyzer 0 % (0-5); Neutrophil # 2.51 X10^3/uL (2.7-7.7); Neutrophil % 47.2 % (47-70); Platelet Count 194 K/mm3 (150-450); RBC Distribution Width CV 12.1 % (11.6-14.6); RBC Distribution Width SD 42.6 fl (35.1-43.9); Red Blood Count 4.73 M/mm3 (4.6-6.2); White Blood Count 5.3 K/mm3 (4.4-11.0)
[2022-06-25 12:50] LABS: Vitamin D,25 Hydroxy 32.7 ng/mL
[2022-06-25 13:19] LABS: ALB/GLOB Ratio 1.2 RATIO (0.9-2.4); AST(SGOT) 42 U/L (15-37); Alanine Aminotransfer ALT/SGPT 57 U/L (16-61); Alkaline Phosphatase 63 U/L (45-117); Anion Gap 6 (5-15); BUN 19 mg/dL (7-18); BUN/Creat Ratio 14.1 RATIO (10-20); Calcium,Total 8.9 mg/dL (8.5-10.1); Chloride 106 mmol/L (98-107); Creatinine, Serum 1.35 mg/dL (0.70-1.30); EST Glomerular Filtration Rate 54 mL/min (>60); Est Glom Filt Rate - Afr Amer 66 mL/min (>60); Globulin 3.3 g/dL (2.2-4.2); Glucose 109 mg/dL (74-106); Potassium 4.2 mmol/L (3.5-5.1); Protein, Total 7.3 g/dL (6.4-8.2); Sodium Level 140 mmol/L (136-145); Thyroid Stim Hormone (TSH) 2.61 uIU/mL (0.358-3.74)
== END | disposition home or self-care (01) ==
LOC: POLAB3 09:37
PROVIDERS: PCP Family Medicine Geriatric Medicine; Visit Provider Family Medicine Geriatric Medicine
DX: I10 Essential (primary) hypertension (principal); E55.9 Vitamin D deficiency, unspecified; F52.8 Other sexual dysfunction not due to a substance or known physiological condition
CPT/HCPCS: 36415; 80053; 82306; 84403; 84443; 85025

== ENCOUNTER → 2022-06-28 | Outpatient (CLI) | payer MEDICARE, SELFPAY ==
[2018-08-07 13:07] VITALS: BMI 25.7
== END | disposition home or self-care (01) ==
LOC: LAB 11:42
PROVIDERS: PCP Family Medicine Geriatric Medicine; Referring Provider Urology; Visit Provider Urology
DX: Z12.5 Encounter for screening for malignant neoplasm of prostate (principal)
CPT/HCPCS: 36415; 84153; G0103

== ENCOUNTER → 2022-09-03 | Outpatient (CLI) | payer MEDICARE, SELFPAY ==
[2018-08-07 13:07] VITALS: BMI 25.7
[2022-09-03 10:52] LABS: Absolute Lymphocyte Count 2.03 X10^3/uL (0.83-4.51); Absolute Neutrophil Count 3.2 X10^3/uL (2.0-7.7); Basophil# 0.04 X10^3/uL; Basophil% 0.6 % (0-1); Eosinophil# 0.46 X10^3/uL; Eosinophils% 7.2 % (0-5); Hematocrit 44.7 % (40-54); Hemoglobin 14.8 g/dL (13.0-16.5); Lymphocyte # 2.03 X10^3/ul (0.83-4.51); Lymphocyte % 31.8 % (19-41); Mean Corp Hgb Conc 33.1 g/dL (32-36); Mean Corpuscular Hgb 31.9 pg (27.0-32.0); Mean Corpuscular Volume 96.3 fL (80-94); Monocyte# 0.66 X10^3/uL; Monocyte% 10.3 % (0-10); NRBC Flagged by Analyzer 0 % (0-5); Neutrophil # 3.15 X10^3/uL (2.7-7.7); Neutrophil % 49.5 % (47-70); Platelet Count 174 K/mm3 (150-450); RBC Distribution Width CV 12.1 % (11.6-14.6); RBC Distribution Width SD 42.6 fl (35.1-43.9); Red Blood Count 4.64 M/mm3 (4.6-6.2); White Blood Count 6.4 K/mm3 (4.4-11.0)
[2022-09-03 11:18] LABS: AST(SGOT) 35 U/L (15-37); Alanine Aminotransfer ALT/SGPT 47 U/L (16-61); Albumin, Serum 3.8 g/dL (3.2-5.0); Alkaline Phosphatase 59 U/L (45-117); Anion Gap 7 (5-15); BUN 22 mg/dL (7-18); BUN/Creat Ratio 15.7 RATIO (10-20); Calcium,Total 9.1 mg/dL (8.5-10.1); Chloride 107 mmol/L (98-107); EST Glomerular Filtration Rate 52 mL/min (>60); Est Glom Filt Rate - Afr Amer 63 mL/min (>60); Globulin 3.8 g/dL (2.2-4.2); Glucose 110 mg/dL (74-106); Protein, Total 7.6 g/dL (6.4-8.2); Sodium Level 139 mmol/L (136-145)
[2022-09-03 12:02] LABS: International Normalized Ratio 1.2
== END | disposition home or self-care (01) ==
LOC: LAB 10:33
PROVIDERS: PCP Family Medicine Geriatric Medicine; Referring Provider Family Medicine Geriatric Medicine; Visit Provider Family Medicine Geriatric Medicine
DX: Z41.8 Encounter for other procedures for purposes other than remedying health state (principal); I73.9 Peripheral vascular disease, unspecified; I10 Essential (primary) hypertension
CPT/HCPCS: 36415; 80053; 85025; 85610

== ENCOUNTER → 2022-09-14 | Outpatient (CLI) | payer MEDICARE, SELFPAY ==
[2018-08-07 13:07] VITALS: BMI 25.7
--- NOTE | 2022-09-14 13:00 | CT_ITS ---
PROCEDURE: CT LEFT KNEE WITHOUT CONTRAST REASON FOR EXAM: Male, 76 years old. Preoperative planning for the [employer] Robotic knee surgery. Knee pain. TECHNIQUE: Transaxial CT of the hip, knee and ankle were obtained. Coronal and sagittal reconstruction images of the knee were provided. Individualized dose optimization techniques were used for this CT. COMPARISON: None. FINDINGS: Standard protocol for the preoperative planning for the [employer] robotic knee surgery was performed. Osteopenia with mild arthrosis of the left hip, mild tricompartment arthrosis of the left knee mild arthrosis of the tibiotalar and subtalar joints.. CT/Extremity Lower without Contra IMPRESSION: Preoperative [employer] Robotic knee surgical CT evaluation with findings as described above. Electronically Signed: Ashok Alcantara MD at 13:36 EDT ,
== END | disposition home or self-care (01) ==
LOC: CT 12:59
PROVIDERS: PCP Family Medicine Geriatric Medicine; Referring Provider Specialist; Visit Provider Specialist
DX: M21.162 Varus deformity, not elsewhere classified, left knee (principal)
CPT/HCPCS: 73700

== ENCOUNTER → 2022-09-21 | Outpatient (CLI) | payer MEDICARE, SELFPAY ==
[2018-08-07 13:07] VITALS: BMI 25.7
--- NOTE | 2022-09-10 12:22 | HP.PCM_ITS ---
History and Physical History and Physical? Patient Name: Rayo Melvin : 1945 From:? INES COFFMAN PA-C? DATE OF SURGERY:? 10/03/2022 SCHEDULED PROCEDURE:? Left partial knee replacement versus total knee arthroplasty HISTORY OF PRESENT ILLNESS: Preoperative history and physical exam was performed on September 10, 2022.? This is a 76-year-old male who is been having ongoing pain in his left knee for several years.? Patient has had a previous left knee injury in 1996 that was treated with arthroscopic surgery.? Patient has had previous Euflexxa injections in 2018 which gave 2-3 months relief.? Patient has had increased pain in the knee over the past several years.? Pain is increased with walking, steps, and sitting.? Pain is located over the medial joint line.? Patient has tried [id number] medications including Tylenol without relief.? Patient feels unsafe climbing ladders.? He has difficulty with leisure activities such as hiking secondary to the pain.? Patient has had a previous left knee MRI in 2018 which did show post partial medial meniscectomy with full-thickness articular cartilage loss in the medial femoral tibial compartment.? After failure of conservative measures and discussion with Dr. Virgil Velasco, the patient does wish to proceed with a left knee partial knee replacement versus total knee arthroplasty.? Patient has a medical history pertinent for hypertension, chronic obstructive pulmonary disease, enlarged prostate, chronic kidney disease, and previous heart stents.? We have obtain surgical clearance from the primary care provider Dr. Martinez.? We are reaching out for clearance from the timber cutter at the [facility].? Patient denies past history of DVT or pulmonary embolism.? No recent chest pain or shortness of breath.? He also reports that he sees a specialist for his kidney disease.? He is also seen registered nurse maternal child Dr. Rivers in the past.? He has never required use of oxygen in the past. REVIEW OF SYSTEMS: Review Of Systems: Constitutional: Denies change in appetite, fever,or weight change. Cardiovasular: Reports heart murmur, but denies chest pain and irregular heartbeat. Respiratory: Denies cough, pneumonia, shortness of breath, tuberculosis and wheezing. Gastrointestinal: Denies constipation, diarrhea, heartburn, nausea, rectal itching, bloody stools and vomiting. Genitourinary: Denies incontinence. Musculoskeletal: Denies leg swelling, pain, trouble walking and weakness. Skin: Denies Raynaud's, history of shingles and tattoo. Neurological: Denies ambulatory dysfunction, dizziness, numbness/tingling and tremor. Psychiatric: Denies anxiety, insomnia and stress. Hematologic/Lymphatic: Denies anemia, bleeding/bruising tendency and past transfusion. Reviewed and updated. PAST MEDICAL HISTORY: Advance Care Plan: Other Directive, POA Effective Date: 05/09/2017 Other Directive, LIVING WILL Effective Date: 05/09/2017 Past Medical History: Medical Problems: Arthritis, Hard of Hearing, High Blood Pressure, Hypercholesterolemia, Kidney Stones, Chronic Obstructive Pulmonary Disease (COPD), Emphysema, Enlarged Prostate, Chronic Kidney Disease, Thyroid Disease Accidents: None Surgical Hx: Knee Arthroscopy Rt, Knee Arthroscopy Lt, Cataracts, Retnal Eye SX, Biopsy Of Kidneys, Heart Stent, Hernia Repair Anesthesia Complications: None Assistive Devices: Glasses, Dentures Reviewed and updated. SOCIAL HISTORY: Social History: Marital: .Occupation: Retired.Work Status: Retired.Hand Dominance: Right- handed. Personal Habits:? Cigarette Use: Former Cigarette Smoker.Smokeless Tobacco: Never Used Smokeless Tobacco.E-Cigarette Use: Never used.Alcohol: Weekly use.Drug Use: Denies Use.Enjoy Exercising: Daily. Reviewed, no changes. VITALS: Ht: 72.5 Wt: 200lb Wt k.720 BMI: 26.7 BP: 160/82 Pulse: 73 Resp: 12 T: 98.2 T: 36.8C Pain Level: 1 O2SatR: 99 ALLERGIES: Iodine Iodine IVP Dye? MEDICATIONS: Tamsulosin HCL 0.4 mg Once daily, Ezetimibe 10 mg Once daily, Metoprolol Tartrate 25 mg 1/2 pill twice a day, Gemfibrozil 600 mg Twice a day, Levothyroxine Sodium 25 mcg Once a day, Aspirin Low Dose 81 mg Once every other day, Multi Vitamin? Once a day, Potassium 99 mg Once every other day PRE-OP EXAM:? General appearance:NORMAL? ? ? Other: Eyes: Conjunctivae and lids: NORMAL? Pupils: ERR Ears, Nose, Mouth, and Throat: NORMAL? Other: Inspection of lips, teeth and gums: NORMAL? ?Other: Neck: Examination of neck: no masses noted. Respiratory: Assessment of respiratory effort: NORMAL? ?Other: ?Auscultation of lungs: clear to auscultation no wheezes, rhonchi or rales. Cardiovascular:? Auscultation of heart: regular rate and rhythm, no murmurs, gallops or rubs. PHYSICAL EXAMINATION: Patient does walk with an antalgic gait.? Left knee has mild effusion.? There is tenderness to palpation along the medial joint line.? Range of motion: Lacks 5 full extension to 122 flexion.? Patient has partial correctability with varus alignment.? Stable to anterior/posterior drawer exam with firm endpoint. IMAGING STUDIES: Previous x-rays of the left knee reveal varus alignment with medial joint space narrowing, subchondral sclerosis, osteophyte formation consistent with severe stage IV [id number] erosive osteoarthritis of the medial compartment.? Medial stress examination was also previously performed which showed correction of the alignment with pentecostal of the medial joint space and maintain lateral joint space. IMPRESSION: 1.? 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 Hypertension 3.? Hypercholesterolemia 4.? Chronic obstructive pulmonary disease 5.? History kidney stones 6.? Chronic kidney disease 7.? Thyroid disease 8.? Enlarged prostate 9.? History of heart stents PLAN: Dr. Virgil Velasco did discuss and review with the patient all treatment options including surgical versus nonsurgical options.? Patient does wish to proceed with the above-stated procedure.? Potential risks, benefits, and complications of the procedure were discussed in detail including but not limited to , infection, nerve and blood vessel damage, persistent pain, numbness, tingling, paresthesias, blood clot, pulmonary embolism, and requirement for possible further surgery.? The patient expressed full understanding and has no further questions for the doctor.? Patient does agree to proceed with the above-stated procedure and has signed the surgery consent form. POST-OP MEDICATION PLAN: Pain Medications: Patient reports he is not to take nonsteroidal anti- inflammatories.? He does have underlying chronic kidney disease. DVT Prophylaxis: Aspirin 81 mg twice daily for 4 weeks postoperatively.? Denies past history of DVT or pulmonary embolism This dictation was created using voice recognition software. Phonetic and/or grammatical errors may exist. ___? I have re-examined the patient.? There are no clinical changes since date of exam. ___? See progress notes for changes. ___? Dictated on admission Date: ? ? ?Time: Signature:
[2022-09-21 10:44] LABS: Magnesium 2.2 mg/dL (1.6-2.6); Thyroid Stim Hormone (TSH) 2.21 uIU/mL (0.358-3.74)
== END | disposition home or self-care (01) ==
LOC: PAT 10-23 12:42
PROVIDERS: PCP Family Medicine Geriatric Medicine; Referring Provider Specialist; Visit Provider Specialist
DX: M21.162 Varus deformity, not elsewhere classified, left knee (principal); J44.9 Chronic obstructive pulmonary disease, unspecified; I12.9 Hypertensive chronic kidney disease with stage 1 through stage 4 chronic kidney disease, or unspecified chronic kidney disease; N18.9 Chronic kidney disease, unspecified; E78.00 Pure hypercholesterolemia, unspecified; E07.9 Disorder of thyroid, unspecified
CPT/HCPCS: 36415; 83735; 84443; 87081

== ENCOUNTER → 2022-09-24 | Outpatient (CLI) | payer MEDICARE, SELFPAY ==
[2018-08-07 13:07] VITALS: BMI 25.7
--- NOTE | 2022-09-24 14:48 | RAD_ITS ---
STUDY: X-RAY - LEFT KNEE REASON FOR EXAM: Male, 76 years old. KNEE PAIN TECHNIQUE: 3 view(s) of the knee. COMPARISON: Comparison is made with prior study dated April 04, 2017. FINDINGS: Normal visualized distal femur. Normal visualized proximal tibia and fibula. Normal proximal tibiofibular articulation. There is moderate degenerative arthrosis of the medial femorotibial compartment with moderate joint space narrowing. Normal lateral femorotibial compartment. Normal patellofemoral articulation. Moderate joint effusion. RAD/Knee 3 Views IMPRESSION: Degenerative arthrosis. Joint effusion. Electronically Signed: Germán Wolff MD at 15:43 EDT ,
--- NOTE | 2022-09-24 14:49 | RAD_ITS ---
STUDY: X-RAY - LEFT TIBIA AND FIBULA REASON FOR EXAM: Male, 76 years old. PAIN TECHNIQUE: 2 view(s) of the tibia and fibula were obtained. COMPARISON: None. FINDINGS: Normal visualized tibia. Nondisplaced oblique fracture of the distal fibular shaft. There is non-specific soft tissue swelling. RAD/Tibia & Fibula 2 Views IMPRESSION: Nondisplaced oblique fracture of the distal fibular shaft. Electronically Signed: Germán Wolff MD at 15:41 EDT ,
--- NOTE | 2022-09-24 14:55 | RAD_ITS ---
STUDY: X-RAY - LEFT ANKLE REASON FOR EXAM: Male, 76 years old. Left ankle pain following a fall. TECHNIQUE: 3 view(s) of the ankle. COMPARISON: None. FINDINGS: Nondisplaced oblique fracture of the distal fibular shaft. Normal medial and lateral malleoli. Normal tibiotalar articulation and ankle mortise. Plantar spur. The visualized subtalar, talonavicular, calcaneocuboid and tarsal articulations are normal. Soft tissue swelling. RAD/Ankle min 3 Views IMPRESSION: Nondisplaced oblique fracture of the distal fibular shaft with overlying soft tissue swelling. Plantar spur. Electronically Signed: Germán Wolff MD at 15:40 EDT ,
== END | disposition home or self-care (01) ==
LOC: RAD 14:44
PROVIDERS: PCP Family Medicine Geriatric Medicine; Visit Provider Family Medicine Geriatric Medicine
DX: M25.562 Pain in left knee (principal); M25.572 Pain in left ankle and joints of left foot
CPT/HCPCS: 73562; 73590; 73610

== ENCOUNTER → 2022-11-29 | Outpatient (CLI) | payer MEDICARE, SELFPAY ==
[2018-08-07 13:07] VITALS: BMI 25.7
[2022-11-29 13:56] LABS: Albumin, Serum 4.1 g/dL (3.2-5.0); BUN 16 mg/dL (7-18); BUN/Creat Ratio 12.6 RATIO (10-20); Chloride 107 mmol/L (98-107); Creatinine, Serum 1.27 mg/dL (0.70-1.30); EST Glomerular Filtration Rate 58 mL/min (>60); Est Glom Filt Rate - Afr Amer 70 mL/min (>60); Glucose 108 mg/dL (74-106); Phosphorus 2.5 mg/dL (2.5-4.9); Sodium Level 140 mmol/L (136-145)
--- NOTE | 2022-11-29 15:32 | RAD_ITS ---
INDICATION: L FOOT/ANKLE PAIN EXAMINATION/TECHNIQUE: X-RAY - LEFT XR Foot Min 3 Views COMPARISON: 09/24/2022. FINDINGS: Chronic fracture deformity of the distal fibular metadiaphysis with incomplete healing. No blastic or lytic lesions. Mild to moderate degenerative changes of the midfoot and hindfoot. Soft tissue swelling of the ankle. RAD/Foot min 3 Views IMPRESSION: No acute radiographic abnormalities. Chronic fracture deformity of the distal fibular metadiaphysis with incomplete healing. Consider obtaining additional ankle radiographs to better characterize the fracture. Electronically Signed: Jose E Sims MD at 17:06 EDT ,
[2022-11-29 16:04] LABS: Absolute Lymphocyte Count 1.55 X10^3/uL (0.83-4.51); Absolute Neutrophil Count 3.7 X10^3/uL (2.0-7.7); Basophil# 0.06 X10^3/uL; Eosinophil# 0.41 X10^3/uL; Eosinophils% 6.5 % (0-5); Hematocrit 45.1 % (40-54); Hemoglobin 14.8 g/dL (13.0-16.5); Lymphocyte # 1.55 X10^3/ul (0.83-4.51); Lymphocyte % 24.6 % (19-41); Mean Corp Hgb Conc 32.8 g/dL (32-36); Mean Corpuscular Hgb 32.2 pg (27.0-32.0); Mean Corpuscular Volume 98.3 fL (80-94); Mean Platelet Vol. 9.9 fl (6.2-12.0); Monocyte# 0.57 X10^3/uL; NRBC Flagged by Analyzer 0 % (0-5); Neutrophil # 3.66 X10^3/uL (2.7-7.7); Neutrophil % 57.9 % (47-70); Platelet Count 183 K/mm3 (150-450); RBC Distribution Width CV 13.1 % (11.6-14.6); RBC Distribution Width SD 46.6 fl (35.1-43.9); Red Blood Count 4.59 M/mm3 (4.6-6.2); White Blood Count 6.3 K/mm3 (4.4-11.0)
[2022-11-29 16:08] LABS: Erythrocyte Sedimentation Rate 5 mm/hr (0-20)
[2022-11-29 16:15] LABS: CRP < 2.90 mg/L (0.0-3.0)
[2022-11-29 18:58] LABS: M R Staph aureus DNA By PCR Negative (Negative); Probe Check PASS; Specimen Processing Control PASS; Staph aureus DNA By PCR NEGATIVE (Negative)
== END | disposition home or self-care (01) ==
PROVIDERS: Internal Medicine Nephrology; PCP Family Medicine Geriatric Medicine; Referring Provider Family Medicine Geriatric Medicine; Visit Provider Family Medicine Geriatric Medicine
DX: L03.116 Cellulitis of left lower limb (principal); N18.31 Chronic kidney disease, stage 3a
CPT/HCPCS: 36415; 73630; 80069; 85025; 85652; 86140; 87070; 87077; 87186; 87205; 87640

== ENCOUNTER → 2022-12-05 | Outpatient (CLI) | payer MEDICARE, SELFPAY ==
[2018-08-07 13:07] VITALS: BMI 25.7
--- NOTE | 2022-12-05 11:20 | US_ITS ---
EXAM: US LEFT LOWER EXTREMITY NON-VASCULAR, COMPLETE CLINICAL INDICATION: CELLULITIS OF L FOOT -- LEFT FOOT, VERY LATERAL AREA OF REDNESS/ LUMP/SCAB -- PREVIOUS TRAUMA AND BROKEN BONE TECHNIQUE: Real-time ultrasound scan of the left lower extremity with image documentation. COMPARISON: Left foot radiographs on the same date. FINDINGS: SOFT TISSUES: Possible 4 mm focus of fluid within the superficial soft tissues in the area of concern, approximately 3 mm deep to the skin surface. There appears to be mild superficial edema in the area scanned in the lateral left foot. US/Ext Non Vasc Limited/Soft Tiss IMPRESSION: 1. Possible 4 mm focus of fluid within the superficial soft tissues in the area of concern, approximately 3 mm deep to the skin surface. This may be due to surrounding edema or an abscess. 2. There appears to be mild superficial edema in the area scanned in the lateral left foot. Electronically Signed: Kolton Chase DO at 20:54 EDT ,
== END | disposition home or self-care (01) ==
LOC: US 11:18
PROVIDERS: PCP Family Medicine Geriatric Medicine; Referring Provider Family Medicine Geriatric Medicine; Visit Provider Family Medicine Geriatric Medicine
DX: L02.612 Cutaneous abscess of left foot (principal); L03.116 Cellulitis of left lower limb
CPT/HCPCS: 76882

== ENCOUNTER → 2022-12-24 | Outpatient (CLI) | payer MEDICARE, SELFPAY ==
[2018-08-07 13:07] VITALS: BMI 25.7
[2022-12-24 12:27] LABS: Absolute Neutrophil Count 3.4 X10^3/uL (2.0-7.7); Basophil# 0.04 X10^3/uL; Basophil% 0.6 % (0-1); Eosinophil# 0.39 X10^3/uL; Eosinophils% 6.1 % (0-5); Hematocrit 45.8 % (40-54); Hemoglobin 15.3 g/dL (13.0-16.5); Lymphocyte % 28.3 % (19-41); Mean Corp Hgb Conc 33.4 g/dL (32-36); Mean Corpuscular Hgb 32.4 pg (27.0-32.0); Monocyte# 0.67 X10^3/uL; Monocyte% 10.5 % (0-10); NRBC Flagged by Analyzer 0 % (0-5); Neutrophil # 3.42 X10^3/uL (2.7-7.7); Neutrophil % 53.7 % (47-70); Platelet Count 212 K/mm3 (150-450); RBC Distribution Width CV 12.4 % (11.6-14.6); RBC Distribution Width SD 44.4 fl (35.1-43.9); Red Blood Count 4.72 M/mm3 (4.6-6.2); White Blood Count 6.4 K/mm3 (4.4-11.0)
[2022-12-24 13:05] LABS: Vitamin D,25 Hydroxy 32.8 ng/mL
[2022-12-24 13:35] LABS: ALB/GLOB Ratio 1.1 RATIO (0.9-2.4); AST(SGOT) 34 U/L (15-37); Alanine Aminotransfer ALT/SGPT 55 U/L (16-61); Albumin, Serum 4.1 g/dL (3.2-5.0); Alkaline Phosphatase 63 U/L (45-117); Anion Gap 6 (5-15); BUN 20 mg/dL (7-18); BUN/Creat Ratio 14.7 RATIO (10-20); Calcium,Total 9.5 mg/dL (8.5-10.1); Chloride 104 mmol/L (98-107); Creatinine, Serum 1.36 mg/dL (0.70-1.30); EST Glomerular Filtration Rate 54 mL/min (>60); Est Glom Filt Rate - Afr Amer 65 mL/min (>60); Globulin 3.6 g/dL (2.2-4.2); Glucose 97 mg/dL (74-106); Potassium 3.9 mmol/L (3.5-5.1); Protein, Total 7.7 g/dL (6.4-8.2); Sodium Level 138 mmol/L (136-145); Thyroid Stim Hormone (TSH) 2.61 uIU/mL (0.358-3.74)
== END | disposition home or self-care (01) ==
LOC: LAB 11:46
PROVIDERS: PCP Family Medicine Geriatric Medicine; Referring Provider Family Medicine Geriatric Medicine; Visit Provider Family Medicine Geriatric Medicine
DX: I10 Essential (primary) hypertension (principal); E55.9 Vitamin D deficiency, unspecified
CPT/HCPCS: 36415; 80053; 82306; 84443; 85025

== ENCOUNTER → 2023-07-02 | Outpatient (CLI) | payer MEDICARE, SELFPAY ==
[2018-08-07 13:07] VITALS: BMI 25.7
[2023-07-02 11:24] LABS: Absolute Neutrophil Count 3.5 X10^3/uL (2.0-7.7); Basophil# 0.04 X10^3/uL; Basophil% 0.6 % (0-1); Eosinophil# 0.49 X10^3/uL; Eosinophils% 7.6 % (0-5); Hematocrit 42.3 % (40-54); Hemoglobin 13.9 g/dL (13.0-16.5); Lymphocyte % 29.4 % (19-41); Mean Corp Hgb Conc 32.9 g/dL (32-36); Mean Corpuscular Volume 94.4 fL (80-94); Mean Platelet Vol. 10.1 fl (6.2-12.0); Monocyte# 0.55 X10^3/uL; Monocyte% 8.5 % (0-10); NRBC Flagged by Analyzer 0 % (0-5); Neutrophil # 3.45 X10^3/uL (2.7-7.7); Neutrophil % 53.3 % (47-70); Platelet Count 203 K/mm3 (150-450); RBC Distribution Width CV 12.5 % (11.6-14.6); RBC Distribution Width SD 43.1 fl (35.1-43.9); Red Blood Count 4.48 M/mm3 (4.6-6.2); White Blood Count 6.5 K/mm3 (4.4-11.0)
[2023-07-02 11:39] LABS: Vitamin D,25 Hydroxy 35.5 ng/mL
[2023-07-02 11:46] LABS: ALB/GLOB Ratio 1.1 RATIO (0.9-2.4); AST(SGOT) 32 U/L (15-37); Alanine Aminotransfer ALT/SGPT 39 U/L (16-61); Albumin, Serum 3.9 g/dL (3.2-5.0); Alkaline Phosphatase 66 U/L (45-117); Anion Gap 6 (5-15); BUN 20 mg/dL (7-18); BUN/Creat Ratio 15.5 RATIO (10-20); Calcium,Total 9.1 mg/dL (8.5-10.1); Chloride 109 mmol/L (98-107); Cholesterol 199 mg/dL (200); Creatinine, Serum 1.29 mg/dL (0.70-1.30); EST Glomerular Filtration Rate 57 mL/min (>60); Est Glom Filt Rate - Afr Amer 69 mL/min (>60); Globulin 3.6 g/dL (2.2-4.2); Glucose 132 mg/dL (74-106); High Density Lipoprotein 49 mg/dL; Potassium 3.9 mmol/L (3.5-5.1); Protein, Total 7.5 g/dL (6.4-8.2); Sodium Level 141 mmol/L (136-145); Thyroid Stim Hormone (TSH) 1.69 uIU/mL (0.358-3.74); Triglycerides 108 mg/dL; Very Low Density Lipoprotein 22 mg/dL (5-40)
[2023-07-02 15:43] LABS: PSA,Total - Annual Screen 1.39 ng/mL (0.00-4.00)
== END | disposition home or self-care (01) ==
PROVIDERS: PCP Family Medicine Geriatric Medicine; Referring Provider Family Medicine Geriatric Medicine; Visit Provider Family Medicine Geriatric Medicine
DX: Z12.5 Encounter for screening for malignant neoplasm of prostate (principal); I10 Essential (primary) hypertension; E78.5 Hyperlipidemia, unspecified; E55.9 Vitamin D deficiency, unspecified
CPT/HCPCS: 36415; 80053; 80061; 82306; 84153; 84443; 85025; G0103

== ENCOUNTER → 2023-07-12 | Outpatient (CLI) | payer MEDICARE, SELFPAY ==
[2018-08-07 13:07] VITALS: BMI 25.7
--- NOTE | 2023-07-12 16:49 | CT_ITS ---
STUDY: CT ABDOMEN AND PELVIS WITH CONTRAST REASON FOR EXAM: Male, 77 years old. Neoplasm of uncertain behavior of right kidney RADIATION DOSAGE (If Supplied By Facility): CTDIvol = ( 18.55 ) mGy, DLP = ( 1766.56 ) mGycm TECHNIQUE: Transaxial images were obtained from the dome of the diaphragm to the symphysis pubis without oral contrast. IV 100mL Isovue-370 was administered. Sagittal and coronal images were reconstructed. Individualized dose optimization techniques were used for this CT. COMPARISON: Comparison is made with prior study dated January 09, 2021. FINDINGS: Stable 2 mm noncalcified nodule along the lateral aspect of the right lower lobe. Coronary artery calcification. There is decreased attenuation of the liver consistent with steatosis. There are multiple small gallstones. There are multiple benign calcified granulomata of the spleen. Normal pancreas. Normal bilateral adrenal glands. There is a 2.6 cm x 1.7 cm heterogeneously enhancing solid mass in the inferior aspect of the right kidney. There is a 2.6 cm cyst in the posterior medial aspect of the left kidney. Normal visualized stomach. Normal small intestine. Normal colon. The appendix is visualized and appears normal. There is diffuse atherosclerotic calcification of the abdominal aorta and its major visceral branches, without a demonstrated aneurysm. Normal inferior vena cava. Normal retroperitoneum. Punctate calcification along the posterior aspect of the right and left common iliac veins. Normal urinary bladder. Heterogeneous enlargement of the prostate. This measures 4.5 cm x 5.7 cm. This causes indentation of the bladder base. There is evidence of prior right inguinal hernia repair. There is a moderate-sized left inguinal hernia containing fat and nondilated small bowel loop. There are degenerative changes of the visualized lumbar spine. CT/Abdomen/Pelvis WITH Contrast IMPRESSION: Mild enlargement of the previously seen solid nodule in the lower pole of the right kidney. The remainder of the examination is unchanged. Electronically Signed: Germán Wolff MD at 9:31 EDT ,
== END | disposition home or self-care (01) ==
PROVIDERS: PCP Family Medicine Geriatric Medicine; Referring Provider Urology; Visit Provider Urology
DX: D41.01 Neoplasm of uncertain behavior of right kidney (principal)
CPT/HCPCS: 74177; Q9967

== ENCOUNTER → 2023-08-20 | Outpatient (CLI) | payer MEDICARE, SELFPAY ==
[2018-08-07 13:07] VITALS: BMI 25.7
[2023-08-20] VITALS (15 sets, daily range): BP systolic 119–185; BP diastolic 57–109; PULSE 54–63; RESP 12–15; TEMP 36.3; O2SAT 91–98; BMI 25.0
--- NOTE | 2023-08-20 | ASPIGT_PTH ---
PATIENT: ACRLEE LEE LOC: [place] U#:[id number] AGE/SX: 77/M ROOM: RE08/20/[address]: Dr. 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 See comment. / 08/21/2023 COMMENT Correlation with clinical, radiologic findings and appropriate follow up are necessary. Case has been reviewed in consultation with Dr. Severino who concurs with the above diagnosis. IDC:AM The specimen is evaluated at the time of biopsy by Dr. Irving. Immediate Evaluation = Mildly atypical cells noted. MICROSCOPIC DESCRIPTION Slides are reviewed. GROSS DESCRIPTION Received in fixative is one container labeled with the patient's name and designated Right kidney mass. The specimen consists of multiple irregular fragments of canas soft tissue that in aggregate measure 1.0 x 0.2 x 0.1 cm. The specimen is totally submitted in one cassette. Two touch imprints are prepared at the time of core biopsy. / 08/20/2023 TC:1 CPT:99475,674484
[2023-08-20 09:38] LABS: Platelet Count 234 K/mm3 (150-450)
[2023-08-20 09:46] LABS: International Normalized Ratio 1.2; Prothrombin Time (Protime)PT. 15.4 SECONDS (11.7-14.9)
[2023-08-20 09:47] LABS: Partial Thromboplast Time 35.9 Seconds (24.1-36.2)
[2023-08-20] MEDS: 0.9% Normal Saline (250mL Bag) 250 ML 15 ML IV (09:58)
[2023-08-20] MEDS: Midazolam 2 MG/2 ML Syringe IV ×2 (10:00→10:12)
[2023-08-20] MEDS: fentaNYL 100 MCG/2 ML Ampul IV ×2 (10:01→10:25)
[2023-08-20] MEDS: Lidocaine 2% (20 ml mdv) 20 ML Vial INFILT (10:16)
--- NOTE | 2023-08-20 11:04 | PCM.OP.PRO ---
Procedure Report Date of Procedure: 08/20/23 Assessment & Plan Assessment/Plan (1) Neoplasm of right kidney: PLAN: PROCEDURE: CT GUIDED RIGHT PERCUTANEOUS KIDNEY BIOPSY. ORDERING PROVIDER: Dr. Vazquez INDICATION: Male, 77 years old. Neoplasm of right kidney. PROVIDER: PATRICIO Rubio CONSENT: Written informed consent was obtained having explained the risks, benefits and alternatives in detail with the patient. The specific risk of hemorrhage requiring further treatment or intervention was detailed and accepted. The patient accepted the risks and agreed to proceed. Laboratory review and clinical assessment was performed. PRE-PROCEDURE SEDATION ASSESSMENT: Current history and physical dictated by referring provider and reviewed. No clinical changes since date of exam. Patient has an ASA Class of 2. PROCEDURAL SEDATION PROTOCOL: The Drugs used were: 2 mg Versed, IV, and 100 mcg Fentanyl, IV. The sedation time was: 30 minutes, starting at 10:00 and terminated at 1030. The procedural sedation protocol was independently monitored by the department nurse. RADIATION DOSAGE (If Supplied By Facility): CTDIvol = 15.89 mGy, DLP = 347.98 mGycm Individualized dose optimization techniques were used for this CT. TECHNIQUE: The patient was placed on the CT table in the prone position. Multiple axial images were obtained from the lung base through the caudal extent of the kidneys. An appropriate entry site was identified and a lelia made on the skin. The skin overlying the right posterior flank was prepped and draped in sterile fashion. 2% lidocaine was administered subcutaneously for local anesthesia. Using CT guidance, an 18-gauge coaxial biopsy device was advanced to the periphery of the lesion located in the right kidney. A total of 4 core specimens were obtained. Specimens were microscopically reviewed by pathology in the CT suite and placed in formalin solution for further analysis. The needle was withdrawn. Hemostasis was achieved with manual compression and a sterile dressing was applied. The patient tolerated the procedure well without immediate complications. The patient returned to the holding bay in stable condition for nursing monitoring, per protocol. IMPRESSION: 1. Successful CT guided percutaneous right kidney biopsy. Pathology results are pending. 2. Procedural Sedation protocol utilized with independent monitoring by the department nurse. Procedures Radiology Radiology CT Procedures: 74798 Biopsy Kidney Multi Select Codes Radiology Radiology CT Procedures: [id number] CT guidance parenchymal tissue
== END | disposition home or self-care (01) ==
PROVIDERS: Nurse Practitioner Acute Care; PCP Family Medicine Geriatric Medicine; Referring Provider Urology; Visit Provider Urology
DX: D30.01 Benign neoplasm of right kidney (principal)
CPT/HCPCS: 50200; 36415; 77012; 85049; 85610; 85730; 88172; 88305; 88313; 99156; 99157; J7050

== ENCOUNTER → 2023-10-29 | Outpatient (CLI) | payer MEDICARE, SELFPAY ==
[2018-08-07 13:07] VITALS: BMI 25.7
[2023-10-29 16:09] LABS: Albumin, Serum 3.9 g/dL (3.2-5.0); BUN 12 mg/dL (7-18); BUN/Creat Ratio 9.2 RATIO (10-20); Chloride 106 mmol/L (98-107); EST Glomerular Filtration Rate 57 mL/min (>60); Est Glom Filt Rate - Afr Amer 68 mL/min (>60); Glucose 104 mg/dL (74-106); Phosphorus 2.4 mg/dL (2.5-4.9); Potassium 3.8 mmol/L (3.5-5.1); Sodium Level 140 mmol/L (136-145)
== END | disposition home or self-care (01) ==
LOC: LAB 14:39
PROVIDERS: PCP Family Medicine Geriatric Medicine; Referring Provider Internal Medicine Nephrology; Visit Provider Internal Medicine Nephrology
DX: N18.31 Chronic kidney disease, stage 3a (principal)
CPT/HCPCS: 36415; 80069

== ENCOUNTER → 2024-01-02 | Outpatient (CLI) | payer MEDICARE, SELFPAY ==
[2018-08-07 13:07] VITALS: BMI 25.7
[2024-01-02 09:28] LABS: Absolute Lymphocyte Count 1.79 X10^3/uL (0.83-4.51); Absolute Neutrophil Count 3.3 X10^3/uL (2.0-7.7); Basophil# 0.06 X10^3/uL; Basophil% 0.9 % (0-1); Eosinophil# 0.55 X10^3/uL; Eosinophils% 8.6 % (0-5); Hematocrit 43.1 % (40-54); Hemoglobin 14.6 g/dL (13.0-16.5); Lymphocyte # 1.79 X10^3/ul (0.83-4.51); Lymphocyte % 28.1 % (19-41); Mean Corp Hgb Conc 33.9 g/dL (32-36); Mean Corpuscular Hgb 31.7 pg (27.0-32.0); Mean Corpuscular Volume 93.5 fL (80-94); Mean Platelet Vol. 9.4 fl (6.2-12.0); Monocyte# 0.56 X10^3/uL; Monocyte% 8.8 % (0-10); NRBC Flagged by Analyzer 0 % (0-5); Neutrophil # 3.33 X10^3/uL (2.7-7.7); Neutrophil % 52.5 % (47-70); Platelet Count 201 K/mm3 (150-450); RBC Distribution Width CV 13.2 % (11.6-14.6); Red Blood Count 4.61 M/mm3 (4.6-6.2); White Blood Count 6.4 K/mm3 (4.4-11.0)
[2024-01-02 10:04] LABS: ALB/GLOB Ratio 1.1 RATIO (0.9-2.4); AST(SGOT) 17 U/L (15-37); Alanine Aminotransfer ALT/SGPT 18 U/L (16-61); Alkaline Phosphatase 83 U/L (45-117); Anion Gap 6 (5-15); BUN 16 mg/dL (7-18); BUN/Creat Ratio 12.8 RATIO (10-20); Chloride 108 mmol/L (98-107); Cholesterol 208 mg/dL (200); Creatinine, Serum 1.25 mg/dL (0.70-1.30); EST Glomerular Filtration Rate 59 mL/min (>60); Est Glom Filt Rate - Afr Amer 71 mL/min (>60); Globulin 3.8 g/dL (2.2-4.2); Glucose 121 mg/dL (74-106); High Density Lipoprotein 52 mg/dL; Potassium 3.8 mmol/L (3.5-5.1); Protein, Total 7.8 g/dL (6.4-8.2); Sodium Level 140 mmol/L (136-145); Triglycerides 102 mg/dL; Very Low Density Lipoprotein 20 mg/dL (5-40)
[2024-01-03 14:00] LABS: Vitamin D,25 Hydroxy 29.2 ng/mL
== END | disposition home or self-care (01) ==
LOC: POLAB3 09:16
PROVIDERS: PCP Family Medicine Geriatric Medicine; Visit Provider Family Medicine Geriatric Medicine
DX: I10 Essential (primary) hypertension (principal); E55.9 Vitamin D deficiency, unspecified; E78.5 Hyperlipidemia, unspecified
CPT/HCPCS: 36415; 80053; 80061; 82306; 84443; 85025

== ENCOUNTER → 2024-07-02 | Outpatient (CLI) | payer MEDICARE, SELFPAY ==
[2018-08-07 13:07] VITALS: BMI 25.7
[2024-07-02 11:27] LABS: Absolute Lymphocyte Count 1.93 X10^3/uL (0.83-4.51); Basophil# 0.05 X10^3/uL; Basophil% 0.8 % (0-1); Eosinophil# 0.49 X10^3/uL; Hematocrit 42.5 % (40-54); Hemoglobin 14.4 g/dL (13.0-16.5); Lymphocyte # 1.93 X10^3/ul (0.83-4.51); Lymphocyte % 31.7 % (19-41); Mean Corp Hgb Conc 33.9 g/dL (32-36); Mean Corpuscular Hgb 31.6 pg (27.0-32.0); Mean Corpuscular Volume 93.4 fL (80-94); Mean Platelet Vol. 9.9 fl (6.2-12.0); Monocyte# 0.54 X10^3/uL; Monocyte% 8.9 % (0-10); NRBC Flagged by Analyzer 0 % (0-5); Neutrophil # 3.04 X10^3/uL (2.7-7.7); Neutrophil % 49.9 % (47-70); Platelet Count 215 K/mm3 (150-450); RBC Distribution Width CV 12.7 % (11.6-14.6); RBC Distribution Width SD 43.7 fl (35.1-43.9); Red Blood Count 4.55 M/mm3 (4.6-6.2); White Blood Count 6.1 K/mm3 (4.4-11.0)
[2024-07-02 13:44] LABS: ALB/GLOB Ratio 1.6 RATIO (0.9-2.4); AST(SGOT) 32 U/L (<=37); Alanine Aminotransfer ALT/SGPT 26 U/L (<=46); Albumin, Serum 4.8 g/dL (3.4-4.8); Alkaline Phosphatase 75 U/L (40-129); Anion Gap 13 (5-15); BUN 15 mg/dL (4-19); BUN/Creat Ratio 12.2 RATIO (10-20); Calcium,Total 9.5 mg/dL (7.6-11.0); Carbon Dioxide 24.5 mmol/L (21.0-32.0); Chloride 104 mmol/L (98-108); Cholesterol 224 mg/dL (<=200); Creatinine, Serum 1.26 mg/dL (0.70-1.20); EST Glomerular Filtration Rate 58 (>60); Glucose 103 mg/dL (70-99); High Density Lipoprotein 43 mg/dL; Low Density Lipoprotein Calc. 155 mg/dL; Potassium 4.4 mmol/L (3.3-5.1); Protein, Total 7.8 g/dL (5.9-8.4); Sodium Level 141 mmol/L (133-145); Total Bilirubin 0.45 mg/dL (0.00-1.30); Triglycerides 129 mg/dL; Very Low Density Lipoprotein 26 mg/dL (5-40); cholesterol:hdl ratio screen 5.17
[2024-07-02 13:45] LABS: Vitamin D,25 Hydroxy 33.6 ng/mL (30-100)
== END | disposition home or self-care (01) ==
LOC: LAB 10:09
PROVIDERS: PCP Family Medicine Geriatric Medicine; Referring Provider Family Medicine Geriatric Medicine; Visit Provider Family Medicine Geriatric Medicine
DX: I10 Essential (primary) hypertension (principal); E78.5 Hyperlipidemia, unspecified; E55.9 Vitamin D deficiency, unspecified
CPT/HCPCS: 36415; 80053; 80061; 82306; 84443; 85025

== ENCOUNTER → 2024-12-31 | Outpatient (CLI) | payer MEDICARE, SELFPAY ==
[2018-08-07 13:07] VITALS: BMI 25.7
[2024-12-31 09:34] LABS: Hematocrit 45.0 % (40-54); Hemoglobin 15.1 g/dL (13.0-16.5); Immature Granulocytes Count 0.050 X10^3/uL (0.0-0.0); Mean Corp Hgb Conc 33.6 g/dL (32-36); Mean Corpuscular Volume 96.4 fL (80-94); Mean Platelet Vol. 9.7 fl (6.2-12.0); NRBC Flagged by Analyzer 0 % (0-5); Platelet Count 221 K/mm3 (150-450); RBC Distribution Width CV 12.5 % (11.6-14.6); RBC Distribution Width SD 43.8 fl (35.1-43.9); Red Blood Count 4.67 M/mm3 (4.6-6.2); White Blood Count 7.4 K/mm3 (4.4-11.0)
--- OUTSIDE RECORDS SUMMARY | 2024-12-31 09:44 | XMS RPT_ITS | CCD ---
Author Organization [facility] CliniSyvt Care Team Providers Care Supervising Librarian Name Role Phone Dr. Fox Fischer Chi Primary Care Provider Juan, Dr. Fox Pereyra Referring Provider COURTNEY Aplpe Attending Provider Juan, Dr. Fox Pereyra Primary Care Provider Juan, Dr. Fox Pereyra Referring Provider Dr. Ahsan Rivers Attending Provider 1([facility])[phone] COURTNEY Apple Attending Provider Juan, Dr. Fox Pereyra Primary Care Provider Juan, Dr. Fox Pereyra Referring Provider JUAN ESTRELLA, DR MEZA Primary Care Physician Juan, Dr. Fox Pereyra Primary Care Provider Juan, Dr. Fox Pereyra Referring Provider COURTNEY Apple Attending Provider MISTI SHIRLEY Attending Unavailable JUAN ESTRELLA, DR MEZA Primary Care Unavailable MISTI SHIRLEY Attending Arie FISCHER MD, DR MEZA Primary Care Unavailable MISTI SHIRLEY Attending Arie FISCHER MD, DR MEZA Primary Care Unavailable Juan ESTRELLA, Dr. Fox Pereyra Primary Care Provider Juan ESTRELLA, Dr. Fox Pereyra Referring Provider Jorge MACARIO-CPam Attending Provider Juan ESTRELLA, Dr. Fox Pereyra Attending Provider Juan R MACARIO-CNo Attending Provider 1([facility])[phone] Amita Brenner Attending Unavailable Amita Brenner Referring Unavailable Juan, Fox Chi Primary Care Unavailable Juan, Fxo Chi Attending Unavailable Juan, Fox Chi Referring Unavailable Juan, Fox Chi Primary Care Unavailable Jorge MACARIO, Pam Attending Unavailable Juan, Fox Chi Referring Unavailable Juan, Fox Chi Primary Care Unavailable Brandon Fulton Attending Unavailable Juan, Fox Chi Referring Unavailable Juan, Fox Chi Primary Care Unavailable Taylor, Jamison Referring Unavailable Hanshaw, Ronel Consulting Unavailable Juan, Fox Chi Primary Care Unavailable Taylor, Jamison Attending Unavailable Hanshaw, Ronel Consulting Unavailable Juan, Fox Chi Primary Care Unavailable Hanshaw, Ronel A Attending Unavailable Taylor, Jamison Referring Unavailable Taylor, Jamison Consulting Unavailable Juan 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, 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 Juan, Fox Chi Referring Unavailable Juan, Fox Chi Primary Care Unavailable Juan, Fox Chi Attending Unavailable Juan, Fox Chi Primary Care Unavailable Allergies Allergy Classification Reported Allergen(s) Allergy Type Date of Onset Reaction(s) Facility (1 source) Contrast media; Translations: [CONTRAST DYE] Propensity to adverse reactions to drug (disorder) 2 [place] [facility] (1 source) onion extract; Translations: [ONION] Drug Allergy 2 [place] [facility] (15 sources) Losartan Drug Allergy 2 Severe hypotension and near syncope [facility] (18 sources) Petrolatum; Translations: [petrolatum topical] Drug Allergy 2 Other [facility] (16 sources) Iodine and Iodide Containing Produc; Translations: [Iodine and Iodide Containing Produc] Allergy to substance 2 Itching [facility] (16 sources) Apqnirk-Kfy-Ikm Reductase Inhibitor; Translations: [Xfztszk-Wkm-Uf a Reductase Inhibitor] Propensity to adverse reactions 2 Other [facility] (10 sources) Shellfish; Translations: [shellfish derived] Allergy to substance 3 Itching [facility] (5 sources) ONIONS Allergy to substance 3 Food Allergy [facility] (8 sources) Food Allergies: Uncoded; Translations: [Food Allergies: Uncoded] Allergy to substance 3 Rash [facility] Comment on above: Onions (3 sources) Adhesive Tape Drug allergy [facility] (3 sources) Contrast media Drug allergy [facility] (3 sources) HMG-CoA reductase inhibitor; Translations: [statins] Drug allergy [facility] (3 sources) Shellfish Food allergy [facility] (3 sources) Triple antibiotic ointment to site Drug allergy [facility] (1 source) Losartan Drug Allergy 5 [facility] (1 source) Petrolatum Drug Allergy 5 [facility] Medications Current Medications Medication Drug Class(es) Dates Sig (Normalized) Sig (Original) albuterol MDI (90 mcg/inh) CFC free inhalation aerosol (3 sources) Start: 09-09-2020 take 1 puff(s) by inhalation once as needed for wheezing albuterol MDI (90 mcg/inh) CFC free inhalation aerosol 1 puff(s), Inhalation, Once, PRN as needed for wheezing, # 18 gram(s), 0 Refill(s) Start Date: 09/09/20 Status: Ordered amLODIPine 5 mg oral tablet (7 sources) Dihydropyridine Calcium Channel Cecilia Start: 07-04-2023 take 1 tablet by mouth once daily Amlodipine 5 mg tablet Active 5 mg PO DAILY July 04, 2023 12:00am Start: 06-26-2023 take 1 tablet by chucho th at bedtime amLODIPine 10 mg oral tablet take 1 tablet by mouth at bedtime Start Date: 06/26/23 Status: Ordered cholecalciferol 0.025 mg oral capsule (4 sources) Vitamin D Start: 07-04-2023 take 1 capsule by mouth once daily Cholecalciferol (Vitamin D3) 25 mcg (1,000 unit) capsule Active 25 ug PO DAILY July 04, 2023 12:00am escitalopram 5 mg oral tablet (5 sources) Serotonin Reuptake Inhibitor Start: 02-03-2024 take 1 tablet by mouth once daily Escitalopram Oxalate 5 mg tablet Active 5 mg PO daily February 03, 2024 1:00am Start: 06-26-2023 take 1 tablet by chucho th once daily escitalopram 5 mg oral tablet take 1 tablet by mouth once daily Start Date: 06/26/23 Status: Ordered famotidine 20 mg oral tablet (2 sources) Histamine-2 Receptor Antagonist Start: 05-08-2024 take 1 tablet by mouth once daily Famotidine 20 mg tablet Active 20 mg PO daily May 08, 2024 1:00am latanoprost 0.05 mg/ml ophthalmic solution (5 sources) Prostaglandin Analog Start: 05-08-[address] 0.005 % drops Active 1 NMA OPHTHALMIC AT BEDTIME May 08, 2024 1:00am Start: 06-26-2023 take 1 drop(s) into the eye(s) at bedtime latanoprost 0.005% ophthalmic solution instill 1 drop into both eyes at bedtime Start Date: 06/26/23 Status: Ordered levothyroxine sodium 0.025 mg oral tablet (18 sources) l-Thyroxine Start: 09-09-2020 levothyroxine 25 mcg (0.025 mg) oral tablet Dose : 25 mcg = 1 tab(s), Oral, qDayAC, 0 Refill(s) Start Date: 09/09/20 Status: Ordered Start: 04-27-2020 take 1 capsule by [facility] once daily Levothyroxine 25 mcg capsule Active 25 ug PO DAILY April 27, 2020 1:00am Lopressor 25mg--USE metoprolol tartrate 25 mg oral tablet (3 sources) Start: 09-09-2020 Lopressor 25mg --USE metoprolol tartrate 25 mg oral tablet 0 Refill(s) Start Date: 09/09/20 Status: Ordered Multiple Vitamins oral capsule (3 sources) Start: 02-24-2016 take 1 capsule by mouth once daily Multiple Vitamins oral capsule Dose = 1 cap(s), Oral, Daily, 0 Refill(s) Start Date: 02/24/16 Status: Ordered Multivitamin preparation (9 sources) Start: 02-26-2022 take 1 tablet by mouth once daily Multivitamin Active 1 TABLET PO DAILY February 26, 2022 1:00am Multivitamin tablet (2 sources) Start: 02-26-2022 Multivitamin t ablet Active 1 {tbl} PO DAILY February 26, 2022 1:00am tamsulosin hydrochloride 0.4 mg oral capsule (14 sources) alpha-Adrenerg ic Cecilia Start: 01-25-2022 take 1 capsule by mouth once daily Tamsulosin 0.4 mg capsule Active 0.4 mg PO DAILY January 25, 2022 1:00am Vitamin D3 (3 sources) Start: 06-26-2023 Vitamin D3 Dos e : 25 mcg = 1 tab(s), Oral, Daily, # 30 tab(s), 0 Refill(s) Start Date: 06/26/23 Status: Ordered Vitamins A,C,F-Ityt-Ebsezx (Preservision Areds) 4,296 mcg-226 mg-90 mg capsule (2 sources) Start: 02-03-2024 Vitamins A,C,Z-Xotu-Huzkvi (Preservision Areds) 4,296 mcg-226 mg-90 mg capsule Active 1 NMA PO TWICE A DAY February 03, 2024 1:00am Completed/Discontinued Medications Medication Drug Class(es) Dates Sig (Normalized) Sig (Original) [id number] actuat albuterol 0.09 mg/actuat metered dose inhaler (20 sources) beta2-Adrenergic Agonist Start: 05-06-2019 End: 07-15-2020 Albuterol Sulfate (Ventolin Hfa) 90 mcg/actuation HFA aerosol inhaler Discontinued 2 NMA INHALATION Q4H as needed for shortness of breath or wheezing July 14, 2020 2:26pm July 15, 2020 1:49pm Start: 05-06-2019 End: 07-15-2020 take 1 puff(s) by inhalation every four hours Albuterol Sulfate (Ventolin Hfa) 90 mcg/actuation HFA aerosol inhaler Discontinued 2 PUFF INHALATION Q4H July 14, 2020 2:26pm July 15, 2020 1:49pm aspirin 81 mg delayed release oral tablet (20 sources) Platelet Aggregation Inhibitor, Nonsteroidal Anti-inflammatory Drug Start: 10-25-2020 End: 04-06-2024 take 1 tablet by mouth every other day Aspirin 81 mg tablet,delayed release (DR/EC) Discontinued 81 mg PO .qod 45 May 08, 2023 1:25pm April 06, 2024 9:46am Start: 08-08-2018 End: 10-25-2020 take 1 tablet by mouth once daily Aspirin 81 mg tablet,delayed release (DR/EC) Discontinued 81 mg PO DAILY@0800 90 January 11, 2020 8:12am October 25, 2020 11:30am clopidogrel 75 mg oral tablet (20 sources) P2Y12 Platelet Inhibitor Start: 08-08-2018 End: 04-27-2020 take 1 tablet by mouth once daily Clopidogrel 75 mg tablet Discontinued 75 mg PO DAILY September 07, 2019 11:34am April 27, 2020 12:03pm On Hold: On hold for colonoscopy ezetimibe 10 mg oral tablet (20 sources) Dietary Cholesterol Absorption Inhibitor Start: 10-08-2018 End: 10-10-2023 take 1 tablet by mouth once daily Ezetimibe (Zetia) 10 mg tablet Discontinued 10 mg PO DAILY October 18, 2022 12:17pm October 10, 2023 10:09am gemfibrozil 600 mg oral tablet (20 sources) Peroxisome Proliferator Receptor alpha Agonist Start: 08-08-2018 End: 04-10-2023 take 1 tablet by mouth twice daily Gemfibrozil 600 mg tablet Discontinued 600 mg PO TWICE A DAY 180 April 23, 2022 5:00pm April 10, 2023 11:12am hydroCHLOROthiazide 12.5 mg oral capsule (20 sources) Thiazide Diuretic Start: 10-25-2020 End: 10-25-2020 take 1 capsule by mouth every other day Hydrochlorothiazide 12.5 mg capsule Discontinued 12.5 mg PO every other day October 25, 2020 11:30am October 25, 2020 11:36am Start: 03-26-2019 End: 10-25-2020 take 1 capsule by mouth once daily Hydrochlorothiazide 12.5 mg capsule Discontinued 12.5 mg PO DAILY June 13, 2020 11:53am October 25, 2020 11:30am lisinopril 5 mg oral tablet (20 sources) Angiotensin Converting Enzyme Inhibitor Start: 11-15-2020 End: 11-15-2020 take 2 tablets by mouth once daily Lisinopril 2.5 mg tablet Discontinued 5 mg PO DAILY 0 November 15, 2020 3:55pm November 15, 2020 3:58pm Start: 11-15-2020 End: 11-15-2020 take 5 mg by mouth once daily Lisinopril Discontinued 5 MG PO DAILY 0 November 15, 2020 3:55pm November 15, 2020 3:58pm Start: 11-15-2020 End: 01-25-2022 take 1 tablet by mouth once daily Lisinopril 5 mg tablet Discontinued 5 mg PO DAILY May 22, 2021 10:06am January 25, 2022 3:27pm Start: 10-25-2020 End: 11-15-2020 take 1 tablet by mouth once daily Lisinopril 2.5 mg tablet Discontinued 2.5 mg PO DAILY October 27, 2020 1:59pm November 15, 2020 3:56pm losartan potassium 25 mg oral tablet (15 sources) Angiotensin 2 Receptor Cecilia Start: 08-08-2018 End: 08-22-2018 take 1 tablet by mouth once daily Losartan 25 MG tablet Discontinued 25 mg PO DAILY August 08, 2018 12:00am August 22, 2018 10:37am metoprolol tartrate 25 mg oral tablet (20 sources) beta-Adrenergic Cecilia Start: 08-05-2018 End: 04-10-2023 Metoprolol Tartrate 25 mg tablet Discontinued 12.5 mg PO TWICE A DAY April 23, 2022 5:00pm April 10, 2023 11:12am Start: 08-05-2018 End: 04-10-2023 take 12.5 mg by mouth twice daily Metoprolol Tartrate Discontinued 12.5 MG PO TWICE A DAY April 23, 2022 5:00pm April 10, 2023 11:12am omeprazole 40 mg delayed release oral capsule (15 sources) Proton Pump Inhibitor Start: 08-05-2018 End: 04-24-2021 take 1 capsule by mouth once daily as needed for gastroesophageal reflux disease Omeprazole 40 MG capsule,delayed release(DR/EC) Discontinued 40 mg PO DAILY NEEDED as needed for Heartburn August 05, 2018 12:00am April 24, 2021 12:06pm potassium 99 mg extended release oral tablet (9 sources) Start: 09-12-2022 End: 07-04-2023 take 1 tablet by mouth every other day Potassium 99 mg tablet Discontinued 99 mg PO .QOD September 12, 2022 12:00am July 04, 2023 2:35pm Problems Active Problems Problem Classification Problem Date Documented Date Episodic/Chronic Chronic kidney disease (15 sources) Chronic kidney disease; Translations: [Chronic kidney disease, unspecified] 01-24-2022 Chronic Chronic kidney disease (1 source) Chronic kidney disease; Translations: [Chronic kidney disease, stage 3a] Onset: 09-04-202 4 Chronic obstructive pulmonary disease and bronchiectasis (18 sources) Moderate chronic obstructive pulmonary disease; Translations: [Chronic obstructive pulmonary disease, unspecified] 02-04-2019 Chronic Coronary atherosclerosis and other heart disease (20 sources) Coronary atherosclerosis; Translations: [Atherosclerotic heart disease of [place] coronary artery without angina pectoris] Onset: 4 Chronic Comment on above: Successful PTCA/SANTI mid LAD with a 2.25 x 16 Promus Synergy, followed immediately upstream with a 2.25 x 28 Promus Synergy 08/07/18 per [facility] @ [facility] Disorders of lipid metabolism (20 sources) Hyperlipidemia; Translations: [Hyperlipidemia, unspecified] Onset: 4 Chronic Essential hypertension (20 sources) Essential hypertension; Translations: [Essential (primary) hypertension] Onset: 5 Chronic Heart valve disorders (20 sources) Aortic stenosis, non-rheumatic ; Translations: [Nonrheumatic aortic (valve) stenosis] Chronic Comment on above: Mild per ECHO Hyperplasia of prostate (11 sources) Benign prostatic hyperplasia; Translations: [Benign prostatic hyperplasia without lower urinary tract symptoms] 01-24-2022 Chronic Nonspecific chest pain (15 sources) Atypical chest pain 04-17-2021 Episodic Other lower respiratory disease (16 sources) Dyspnea on exertion; Translations: [Other forms of dyspnea] 08-06-2018 Episodic Other lower respiratory disease (15 sources) Wheezing; Translations: [Wheezing] 09-30-2018 Episodic Other lower respiratory disease (15 sources) Lung mass; Translations: [Other nonspecific abnormal finding of lung field] 02-17-2020 Episodic Comment on above: Monitored 2 years an d stable. Other lower respiratory disease (1 source) Other nonspecific abnormal finding of lung field; Translations: [Swelling, mass, or lump in chest] 02-26-2022 Episodic Peripheral and visceral atherosclerosis (20 sources) Atherosclerosis of artery of lower limb; Translations: [Atherosclerosis of [place] arteries of extremities with intermittent claudication, left leg] 01-25-2022 Chronic Comment on above: PVR- Interpretation SummaryBiphasic Doppler waveforms are noted at ankle level bilaterally. Pulse-volume recordings appearsatisfactory at ankle level bilaterally. The resting right ankle-brachial index is normal. Theresting left ankle-brachial index is mildly diminished. Arterial flow appears normal at ankle level on the right. Arterial flow appears mildly diminished atankle level on the left. There is evidence of moderate angiosomal arterial occlusive diseasebilaterally. Residual codes; unclassified (17 sources) Obstructive sleep apnea syndrome; Translations: [Obstructive sleep apnea (adult) (pediatric)] 03-01-2021 Chronic Comment on above: BiPAP 17/13 centimet ers of water Residual codes; unclassified (5 sources) Obstructive sleep apnea (adult) (pediatric); Translations: [Obstructive sleep apnea (adult)(pediatric)] 02-26-2022 Chronic Residual codes; unclassified (15 sources) Harmful pattern of use of nicotine; Translations: [Tobacco use] 09-30-2018 Episodic Substance-related disorders (15 sources) Nicotine dependence; Translations: [Nicotine dependence, unspecified, uncomplicated] 09-30-2018 Chronic Thyroid disorders (11 sources) Hypothyroidism; Translations: [Hypothyroidism, unspecified] 01-24-2022 Chronic Unclassified (1 source) Unknown / UNK(Unknown) Onset: Past or Other Problems Problem Classification Problem Date Documented Da te Episodic/Chronic Acute bronchitis (15 sources) Acute bronchitis 04-17-2021 Coronary atherosclerosis and other heart disease (15 sources) Stented coronary artery; Translations: [Presence of coronary angioplasty implant and graft] Onset: 08-07-2018 08-07-2018 Episodic Comment on above: Successful PTCA/SANTI mid LAD with a 2.25 x 16 Promus Synergy, followed immediately upstream with a 2.25 x 28 Promus Synergy 08/07/[address] [facility] per [facility] Fluid and electrolyte disorders (12 sources) Hypokalemia; Translations: [Hypokalemia] Onset: 02-03-2024 01-24-2022 Episodic Neoplasms of unspecified nature or uncertain behavior (5 sources) Neoplasm of right kidney; 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] Onset: 09-03-2023 08-07-2023 Episodic Other lower respiratory disease (1 source) Other forms of dyspnea; Translations: [Other forms of dyspnea] Onset: 02-03-2024 Episodic Unclassified (15 sources) BILATERALLY KNEE CARTILAGE 10-06-2021 Results Test Name Value Interpretation Reference Range Facility Cardiology Visit Reporton Cardiology Visit Report [facility] [address] [place] [address] OFFICE VISIT Date of Service: 08/13/24 MR#: [id number] Acct: [id number] Name: CARLEE LEE Rep #: [id number] 3 : 1945 Provider: XAVIER mendoza Age/Sex: 78/M Location: [facility] Status: Signed HPI HPI History of Present Illness Details: Carlee Lee is a 78-year-old gentleman who presents here today for a cardiovascular follow-up visit. He has a history of coronary artery disease with stenting to his LAD in 2019, hyperlipidemia???intoler ant to all statin therapy, hypertension and obstructive sleep apnea treated with CPAP. From a cardiac standpoint, the patient is doing well. He denies any palpitations, chest pain, pressure or heaviness. He does have SOB with exertion-he attributes this to COPD. He states this is nothing new or worsening. He denies Orthopnea, and PND. He does not have bleeding issues; no blood in urine, stool, or nosebleeds. He denies any decrease in energy level, myalgias, or claudication. He does not have edema, or sudden weight gain. He denies lightheadedness, dizziness, syncopal or near syncopal episodes, and headaches. Intake Vital Signs 02/03/24 10:15 05/08/24 07:55 08/13/24 08:26 Height 6 ft 1 in 6 ft 1 in 6 ft 1 in Weight: 203 lb BMI 26.7 BP 122/64 H Blood Pressure Location Lt brachial Position Sitting Respiration 16 Pulse 57 L Pulse Source Monitor Intake Visit Reasons: 6 M [employer] Director Required: No Accompanied by: Self Is patient in pain?: No Allergies Food Allergies: Uncoded Allergy (Verified 08/13/24 08:40) Rash Iodine and Iodide Containing Produc Allergy (Verified 08/13/24 08:40) Itching shellfish derived Allergy (Verified 08/13/24 08:40) Itching losartan Adverse Reaction (Severe, Verified 08/13/24 08:40) Severe hypotension and near syncope petrolatum,white (From Petroleum Jelly) Adverse Reaction (Verified 08/13/24 08:40) Other Uwdrmyn-UGV-FqE Reductase Inhibitor (Shpifas-Unv-Apn Reductase Inhibitor) Adverse Reaction (Verified 08/13/24 08:40) Other Medications ???Medication ???Instructions ???Recorded ???Confirmed ???Type levothyroxine 25 mcg capsule 25 mcg PO DAILY 04/27/20 08/13/24 History albuterol sulfate 90 mcg/actuation 2 puff inhalation Q4H PRN 08/13/24 Rx aerosol inhaler (Ventolin HFA) shortness of breath or wheezing #18 grams tamsulosin 0.4 mg capsule 0.4 mg PO DAILY 01/25/22 08/13/24 History multivitamin 1 tab PO DAILY 02/26/22 08/13/24 H istory gemfibrozil 600 mg tablet 600 mg PO BID #180 tabs 04/10/23 0 08/13/24 Rx metoprolol tartrate 25 mg tablet 12.5 mg (1/2 x 25 mg) PO BID heart 04/10/23 08/13/24 Rx #90 tabs amlodipine 5 mg tablet 5 mg PO DAILY 07/04/23 08/13/24 Hi story cholecalciferol (vitamin D3) 25 25 mcg PO DAILY 07/04/23 08/13/24 History mcg (1,000 unit) capsule ezetimibe 10 mg tablet (Zetia) 10 mg PO DAILY #90 tabs 10/10/23 0 08/13/24 Rx escitalopram oxalate 5 mg tablet 5 mg PO QDAY 02/03/24 08/13/24 His tory vitamins A,C,Z-nvqm-nqcymv 4,296 1 cap PO BID 02/03/24 08/13/24 His tory mcg-226 mg-90 mg capsule (PreserVision AREDS) aspirin 81 mg tablet,delayed 81 mg PO .qod #45 tabs 04/06/24 Rx release famotidine 20 mg tablet 20 mg PO QDAY 05/08/24 08/13/24 Hi story latanoprost 0.005 % eye drops 1 drp ophthalmic (eye) QHS 5 08/13/24 History Have you fallen in the past year?: No PFSH Medical History Wears glasses Wears partial dentures Cancer Alcohol use High cholesterol Umbilical hernia Former smoker CPAP (continuous positive airway pressure) dependence Sleep apnea Emphysema, unspecified COPD (chronic obstructive pulmonary disease) History of pain when walking History of echocardiogram Hypertension Cardiology follow-up encounter History of irregular heartbeat CKD (chronic kidney disease) BPH (benign prostatic hyperplasia) Hypokalemia Hypothyroidism CAD (coronary artery disease) Nonrheumatic aortic (valve) stenosis Deviated septum BILATERALLY KNEE CARTILAGE Hyperlipidemia Essential hypertension Atherosclerotic heart disease of [place] coronary artery without angina pectoris Atypical chest pain Subacute bronchitis Surgical History H/O knee surgery History of hernia surgery History of coronary artery stent placement History of cardiac catheterization H/O vitrectomy (09/2019) H/O bilateral inguinal hernia repair Stented coronary artery (08/07/18) Family History Father CAD (coronary artery disease) Myocardial infarction, Onset Age: 61 Pulmonary embolus DVT (de (more content not included)... Normal [facility] Absolute lymphocyte countOrd ered By: Fox Fischer on 07-02-2024 Lymphocytes Auto (Unsp spec) [#/Vol] 1.93 10*3/uL 0.83-4.51 [facility] Absolute neutrophil countOrd ered By: Fox Fischer on 07-02-2024 Neutrophils (Bld) [#/Vol] 3.0 10*3/uL 2.0-7.7 [facility] Anion gap in Serum or Plasma Ordered By: Fox Fischer on 07-02-2024 Anion gap [Moles/Vol] 13 mmol/L 5-15 [facility] Automated lymphocyte count a s percentage of total leukocytesOrdered By: Fox Fischer on 07-02-2024 Lymphocytes/100 WBC Auto (Unsp spec) 31.7 % 19-41 [facility] BUN/creatinine ratioOrdered By: Fox Fischer on 07-02-2024 Urea nitrogen/Creatinine [Mass ratio] 12.2 mg/mg 10-20 [facility] Basophil percentageOrdered B y: Fox Fischer on 07-02-2024 Basophils/100 WBC (Bld) 0.8 % 0-1 [facility] Bilirubin, totalOrdered By: Fox Fischer on 07-02-2024 Bilirubin [Mass/Vol] 0.45 mg/dL 0.00-1.30 [facility] CBC W/Diff, Automatedon 06-16 Absolute Lymph 1.93 X10 3/uL Normal 0.83-4.51 [facility] Comment on above: Performed By: #### L 500.4050, L100.0100, L500.4100, L506.1001, L501.9520 #### [facility] [address] [place], [address] Absolute Neut 3.0 X10 3/uL Normal 2.0-7.7 [facility] Comment on above: Performed By: #### L 500.4050, L100.0100, L500.4100, L506.1001, L501.9520 #### [facility] [address] [place], [address] Basophils/100 WBC (Bld) 0.8 % Normal 0-1 [facility] Comment on above: Performed By: #### L 500.4050, L100.0100, L500.4100, L506.1001, L501.9520 #### [facility] [address] [place], [address] Eosinophils/100 WBC (Bld) 8.0 % High 0-5 [facility] Comment on above: Performed By: #### L 500.4050, L100.0100, L500.4100, L506.1001, L501.9520 #### [facility] [address] [place], [address] Erythrocyte distribution width (RBC) [Ratio] 12.7 % Normal 11.6-14.6 [facility] Comment on above: Performed By: #### L 500.4050, L100.0100, L500.4100, L506.1001, L501.9520 #### [facility] [address] [place], [address] Hematocrit (Bld) [Volume fraction] 42.5 % Normal 40-54 [facility] Comment on above: Performed By: #### L 500.4050, L100.0100, L500.4100, L506.1001, L501.9520 #### [facility] [address] [place], [address] Hemoglobin (Bld) [Mass/Vol] 14.4 g/dL Normal 13.0-16.5 [facility] Comment on above: Performed By: #### L 500.4050, L100.0100, L500.4100, L506.1001, L501.9520 #### [facility] [address] [place], [address] IG% 0.700 Normal 0.0-0.9 [facility] Comment on above: Result Comment: IG% - Immature Granulocytes (promyelocytes, myelocytes and metamyelocytes) > 1% indicates that a LEFT SHIFT is Present. Performed By: #### L 500.4050, L100.0100, L500.4100, L506.1001, L501.9520 #### [facility] [address] [place], [address] Lymphocytes/100 WBC (Bld) 31.7 % Normal 19-41 [facility] Comment on above: Performed By: #### L 500.4050, L100.0100, L500.4100, L506.1001, L501.9520 #### [facility] [address] [place], [address] MCH (RBC) [Entitic mass] 31.6 pg Normal 27.0-32.0 [facility] Comment on above: Performed By: #### L 500.4050, L100.0100, L500.4100, L506.1001, L501.9520 #### [facility] [address] [place], [address] MCHC (RBC) [Mass/Vol] 33.9 g/dL Normal 32-36 [facility] Comment on above: Performed By: #### L 500.4050, L100.0100, L500.4100, L506.1001, L501.9520 #### [facility] [address] [place], [address] MCV (RBC) [Entitic vol] 93.4 fL Normal 80-94 [facility] Comment on above: Performed By: #### L 500.4050, L100.0100, L500.4100, L506.1001, L501.9520 #### [facility] [address] [place], [address] Monocytes/100 WBC (Bld) 8.9 % Normal 0-10 [facility] Comment on above: Performed By: #### L 500.4050, L100.0100, L500.4100, L506.1001, L501.9520 #### [facility] [address] [place], [address] Neutrophils/100 WBC (Bld) 49.9 % Normal 47-70 [facility] Comment on above: Performed By: #### L 500.4050, L100.0100, L500.4100, L506.1001, L501.9520 #### [facility] [address] [place], [address] Nucleated RBC (Bld) [#/Vol] 0 10*3/uL Normal 0-5 [facility] Comment on above: Performed By: #### L 500.4050, L100.0100, L500.4100, L506.1001, L501.9520 #### [facility] [address] [place], [address] Platelet mean volume (Bld) [Entitic vol] 9.9 fL Normal 6.2-12.0 [facility] Comment on above: Performed By: #### L 500.4050, L100.0100, L500.4100, L506.1001, L501.9520 #### [facility] [address] [place], [address] Platelets (Bld) [#/Vol] 215 10*3/uL Normal 150-450 [facility] Comment on above: Performed By: #### L 500.4050, L100.0100, L500.4100, L506.1001, L501.9520 #### [facility] [address] [place], [address] RBC (Bld) [#/Vol] 4.55 10*6/uL Low 4.6-6.2 [facility] Comment on above: Performed By: #### L 500.4050, L100.0100, L500.4100, L506.1001, L501.9520 #### [facility] [address] [place], [address] RDW SD 43.7 fl Normal 35.1-43.9 [facility] Comment on above: Performed By: #### L 500.4050, L100.0100, L500.4100, L506.1001, L501.9520 #### [facility] [address] [place], [address] WBC (Bld) [#/Vol] 6.1 10*3/uL Normal 4.4-11.0 [facility] Comment on above: Performed By: #### L 500.4050, L100.0100, L500.4100, L506.1001, L501.9520 #### [facility] [address] [place], [address] Calculated very low density lipoprotein (VLDL) cholesterol measurementOrdered By: Fox Fischer on 07-02-2024 Calculated very low density lipoprotein (VLDL) cholesterol measurement 26 mg/dL -40 [facility] VLDL Cholesterol 26 mg/dL -40 [facility] Carbon dioxide, total [Moles /volume] in Central venous bloodOrdered By: Fox Fischer on 07-02-2024 CO2 [Moles/Vol] 24.5 mmol/L 21.0-32.0 [facility] Chloride assayOrdered By: Jaciel Fischer on 07-02-2024 Chloride [Moles/Vol] 104 mmol/L 98-108 [facility] Comprehensive Metabolic Prof ilon 07-02-2024 Albumin [Mass/Vol] 4.8 g/dL Normal 3.4-4.8 [facility] Comment on above: Performed By: #### L 500.4050, L100.0100, L500.4100, L506.1001, L501.9520 #### [facility] [address] [place], [address] Albumin/Globulin [Mass ratio] 1.6 {ratio} Normal 0.9-2.4 [facility] Comment on above: Performed By: #### L 500.4050, L100.0100, L500.4100, L506.1001, L501.9520 #### [facility] [address] [place], [address] ALK PHOS 75 U/L Normal 40-129 [facility] Comment on above: Performed By: #### L 500.4050, L100.0100, L500.4100, L506.1001, L501.9520 #### [facility] [address] [place], [address] ALT [Catalytic activity/Vol] 26 U/L Normal <=46 [facility] Comment on above: Performed By: #### L 500.4050, L100.0100, L500.4100, L506.1001, L501.9520 #### [facility] [address] [place], [address] AST [Catalytic activity/Vol] 32 U/L Normal <=37 [facility] Comment on above: Performed By: #### L 500.4050, L100.0100, L500.4100, L506.1001, L501.9520 #### [facility] [address] [place], [address] Bilirubin [Mass/Vol] 0.45 mg/dL Normal 0.00-1.30 [facility] Comment on above: Performed By: #### L 500.4050, L100.0100, L500.4100, L506.1001, L501.9520 #### [facility] [address] [place], [address] BUN/CRE 12.2 RATIO Normal 10-20 [facility] Comment on above: Performed By: #### L 500.4050, L100.0100, L500.4100, L506.1001, L501.9520 #### [facility] [address] [place], [address] Calcium [Mass/Vol] 9.5 mg/dL Normal 7.6-11.0 [facility] Comment on above: Performed By: #### L 500.4050, L100.0100, L500.4100, L506.1001, L501.9520 #### [facility] [address] [place], [address] Chloride [Moles/Vol] 104 mmol/L Normal 98-108 [facility] Comment on above: Performed By: #### L 500.4050, L100.0100, L500.4100, L506.1001, L501.9520 #### [facility] [address] [place], [address] CO2 [Moles/Vol] 24.5 mmol/L Normal 21.0-32.0 [facility] Comment on above: Performed By: #### L 500.4050, L100.0100, L500.4100, L506.1001, L501.9520 #### [facility] [address] [place], [address] Creatinine [Mass/Vol] 1.26 mg/dL High 0.70-1.20 [facility] Comment on above: Performed By: #### L 500.4050, L100.0100, L500.4100, L506.1001, L501.9520 #### [facility] [address] [place], [address] GAP 13 Normal 5-15 [facility] Comment on above: Performed By: #### L 500.4050, L100.0100, L500.4100, L506.1001, L501.9520 #### [facility] [address] [place], [address] GFR/1.73 sq M.predicted among non-blacks MDRD (S/P/Bld) [Vol rate/Area] 58 mL/min/{1.73_m2} Low >60 [facility] Comment on above: Result Comment: mL/m in/1.73m2 CKD-EPI Creatinine Equation (2020) Performed By: #### L 500.4050, L100.0100, L500.4100, L506.1001, L501.9520 #### [facility] [address] [place], [address] Globulin (S) [Mass/Vol] 3.0 g/dL Normal 2.2-4.2 [facility] Comment on above: Performed By: #### L 500.4050, L100.0100, L500.4100, L506.1001, L501.9520 #### [facility] [address] [place], [address] Glucose [Mass/Vol] 103 mg/dL High 70-99 [facility] Comment on above: Performed By: #### L 500.4050, L100.0100, L500.4100, L506.1001, L501.9520 #### [facility] [address] [place], [address] Potassium [Moles/Vol] 4.4 mmol/L Normal 3.3-5.1 [facility] Comment on above: Performed By: #### L 500.4050, L100.0100, L500.4100, L506.1001, L501.9520 #### [facility] [address] [place], [address] Sodium [Moles/Vol] 141 mmol/L Normal 133-145 [facility] Comment on above: Performed By: #### L 500.4050, L100.0100, L500.4100, L506.1001, L501.9520 #### [facility] [address] [place], [address] T PROT 7.8 g/dL Normal 5.9-8.4 [facility] Comment on above: Performed By: #### L 500.4050, L100.0100, L500.4100, L506.1001, L501.9520 #### [facility] [address] [place], [address] Urea nitrogen [Mass/Vol] 15 mg/dL Normal 4-19 [facility] Comment on above: Performed By: #### L 500.4050, L100.0100, L500.4100, L506.1001, L501.9520 #### [facility] [address] [place], [address] Eosinophil percentageOrdered By: Fox Fischer on 07-02-2024 Eosinophils/100 WBC (Bld) 8.0 % High 0-5 [facility] Erythrocyte distribution wid th (RBC) [Ratio]Ordered By: Fox Fischer on 07-02-2024 Erythrocyte distribution width (RBC) [Entitic vol] 43.7 fL 35.1-43.9 [facility] Erythrocyte distribution wid th ratioOrdered By: Fox Fischer on 07-02-2024 Erythrocyte distribution width (RBC) [Ratio] 12.7 % 11.6-14.6 [facility] Erythrocyte distribution wid th standard deviationOrdered By: Fox Fischer on 07-02-2024 Erythrocyte distribution width (RBC) [Ratio] 43.7 fl 35.1-43.9 [facility] GFR/1.73 sq M.predicted ned g non-blacks MDRD (S/P/Bld) [Vol rate/Area]Ordered By: Fox Fischer on 07-02-2024 Estimated GFR (MDRD) Non-Af Amer 58 Low >60 [facility] Comment on above: mL/min/1.73m2 CKD-EP I Creatinine Equation (2020) Glomerular filtration rate ( GFR) estimation/1.73 sq m using serum, plasma, or whole bOrdered By: Fox Fischer on 07-02-2024 GFR/1.73 sq M.predicted among non-blacks MDRD (S/P/Bld) [Vol rate/Area] 58 mL/min/{1.73_m2} Low >60 [facility] Comment on above: mL/min/1.73m2 CKD-EP I Creatinine Equation (2020) Hematocrit Auto (Bld) [Volum e fraction]Ordered By: Fox Fischer 07-02-2024 Hematocrit (Bld) [Volume fraction] 42.5 % 40-54 [facility] Hemoglobin measurementOrdere d By: Fox Fischer 07-02-2024 Hemoglobin (Bld) [Mass/Vol] 14.4 g/dL 13.0-16.5 [facility] Immature granulocytes/100 WB C Auto (Bld)Ordered By: Fox Fischer 07-02-2024 Immature granulocytes/100 WBC (Bld) 0.700 % 0.0-0.9 [facility] Comment on above: IG% - Immature Granu locytes (promyelocytes, myelocytes and metamyelocytes) > 1% indicates that a LEFT SHIFT is Present. LDL calc ser/plasOrdered By: Fox Fischer on 07-02-2024 Cholesterol in LDL [Mass/Vol] 155 mg/dL [facility] Comment on above: Cnvfsiikrx=586-770 m g/dL & Higher Pmrj=240 mg/dL or greater LDL Cholesterol, Calculated 155 mg/dL [facility] Comment on above: Iexgmhegea=913-715 m g/dL & Higher Krki=455 mg/dL or greater Laboratory - Chemistry and C hemistry - challengeOrdered By: Fox Fischer on 07-02-2024 AST [Catalytic activity/Vol] 32 U/L <38 [facility] Lipid Profileon 07-02-2024 CHOL:HDL 5.17 Normal [facility] Comment on above: Performed By: #### L 500.4050, L100.0100, L500.4100, L506.1001, L501.9520 #### [facility] [address] [place], [address] Cholesterol [Mass/Vol] 224 mg/dL High <=200 [facility] Comment on above: Result Comment: Chol esterol level, Desirable <200 mg/dL Borderline high cholesterol 200-239 mg/dL High cholesterol >=240 mg/dL Recommendations of the NCEP Adult Treatment Panel for the following risk-cutoff thresholds for the [place] population. Performed By: #### L 500.4050, L100.0100, L500.4100, L506.1001, L501.9520 #### [facility] [address] [place], [address] Cholesterol in HDL [Mass/Vol] 43 mg/dL Normal [facility] Comment on above: Result Comment: Yes[place] onal Cholesterol Education Program (NCEP) guidelines: <40 mg/dL: Low HDL-cholesterol (major risk factor for CHD) >= 60 mg/dL: High HDL-cholesterol (negative risk factor for CHD) HDL-cholesterol is affected by a number of factors, e.g. smoking, exercise, hormones, sex and age. Performed By: #### L 500.4050, L100.0100, L500.4100, L506.1001, L501.9520 #### [facility] [address] [place], [address] Cholesterol in LDL [Mass/Vol] 155 mg/dL Normal [facility] Comment on above: Result Comment: Bord lwhzxc=912-996 mg/dL Higher Losx=716 mg/dL or greater Performed By: #### L 500.4050, L100.0100, L500.4100, L506.1001, L501.9520 #### [facility] [address] [place], [address] Cholesterol in VLDL [Mass/Vol] 26 mg/dL Normal 5-40 [facility] Comment on above: Performed By: #### L 500.4050, L100.0100, L500.4100, L506.1001, L501.9520 #### [facility] [address] [place], [address] Triglyceride [Mass/Vol] 129 mg/dL Normal [facility] Comment on above: Result Comment: The drugs N-Acetylcysteine and Metamizole may falsely depress this assay. Normal range: <150 mg/dL Borderline High: 150-199 mg/dL High: 200-499 mg/dL Very High: >500 mg/dL Performed By: #### L 500.4050, L100.0100, L500.4100, L506.1001, L501.9520 #### [facility] [address] [place], [address] Lymphocytes Auto (Unsp spec) [#/Vol]Ordered By: Fox Fischer on 07-02-2024 Lymphocytes (Bld) [#/Vol] 1.93 10*3/uL 0.83-4.51 [facility] Lymphocytes/100 WBC Auto (Un sp spec)Ordered By: Fox Fischer on 07-02-2024 Lymphocytes/100 WBC (Bld) 31.7 % 19-41 [facility] MCV (mean corpuscular volume ) determinationOrdered By: Fox Fischer on 07-02-2024 MCV (RBC) [Entitic vol] 93.4 fL 80-94 [facility] Mean corpuscular hemoglobin (MCH) determinationOrdered By: Fox Fischer on 07-02-2024 MCH (RBC) [Entitic mass] 31.6 pg 27.0-32.0 [facility] Mean corpuscular hemoglobin concentration (MCHC) determinationOrdered By: Fox Fischer on 07-02-2024 MCHC (RBC) [Mass/Vol] 33.9 g/dL 32-36 [facility] Mean platelet volume determi nationOrdered By: Fox Fischer on 07-02-2024 Platelet mean volume (Bld) [Entitic vol] 9.9 fL 6.2-12.0 [facility] Monocyte percentageOrdered B y: Fox Fischer on 07-02-2024 Monocytes/100 WBC (Bld) 8.9 % 0-10 [facility] Neutrophil percentageOrdered By: Fox Fischer on 07-02-2024 Neutrophils/100 WBC (Bld) 49.9 % 47-70 [facility] Nucleated red blood cell per centageOrdered By: Fox Fischer on 07-02-2024 Nucleated RBC/100 WBC (Bld) [Ratio] 0 % 0-5 [facility] Platelet countOrdered By: Jaciel Fischer on 07-02-2024 Platelets (Bld) [#/Vol] 215 10*3/uL 150-450 [facility] Potassium (Unsp spec) [Mass/ Vol]Ordered By: Fox Fischer on 07-02-2024 Potassium [Moles/Vol] 4.4 mmol/L 3.3-5.1 [facility] Potassium measurement (mass/ volume)Ordered By: Fox Fischer on 07-02-2024 Potassium (Unsp spec) [Mass/Vol] 4.4 mmol/L 3.3-5.1 [facility] RBC Auto (Bld) [#/Vol]Ordere d By: Fox Fischer on 07-02-2024 RBC (Bld) [#/Vol] 4.55 10*6/uL Low 4.6-6.2 [facility] Screening total cholesterol/ high density lipoprotein (HDL) cholesterol ratioOrdered By: Fox Fischer on 07-02-2024 Cholesterol.total/Chol esterol in HDL [Mass ratio] 5.17 {ratio} [facility] Serum creatinine measurement (mass/volume)Ordered By: Fox Fischer on 07-02-2024 Creatinine [Mass/Vol] 1.26 mg/dL High 0.70-1.20 [facility] Serum globulin measurementOr dered By: Fox Fischer 07-02-2024 Globulin (S) [Mass/Vol] 3.0 g/dL 2.2-4.2 [facility] Serum glucose measurement (m ass/volume)Ordered By: Fox Fischer 07-02-2024 Glucose [Mass/Vol] 103 mg/dL High 70-99 [facility] Serum or plasma alanine santa otransferase (ALT) measurementOrdered By: Fox Fischer 07-02-2024 ALT [Catalytic activity/Vol] 26 U/L <47 [facility] Serum or plasma albumin prem urement (mass/volume)Ordered By: Fox Fischer 07-02-2024 Albumin [Mass/Vol] 4.8 g/dL 3.4-4.8 [facility] Serum or plasma albumin/glob ulin mass ratioOrdered By: Fox Fischer 07-02-2024 Albumin/Globulin [Mass ratio] 1.6 {ratio} 0.9-2.4 [facility] Serum or plasma alkaline kurt sphatase measurementOrdered By: Fox Fischer 07-02-2024 ALP [Catalytic activity/Vol] 75 U/L 40-129 [facility] Serum or plasma calcium prem urement (mass/volume)Ordered By: Fox Fischer 07-02-2024 Calcium [Mass/Vol] 9.5 mg/dL 7.6-11.0 [facility] Serum or plasma cholesterol in HDL measurement (mass/volume)Ordered By: Fox Fischer 07-02-2024 Cholesterol in HDL [Mass/Vol] 43 mg/dL >40 [facility] Comment on above: National Cholesterol Education Program (NCEP) guidelines:<40 mg/dL: Low HDL-cholesterol (major risk factor for CHD)>= 60 mg/dL: High HDL-cholesterol (negative risk factor for CHD)HDL-cholesterol is affected by a number of factors, e.g. smoking, exercise, hormones, sex and age. Serum or plasma cholesterol measurement (mass/volume)Ordered By: Fox Fischer on 07-02-2024 Cholesterol [Mass/Vol] 224 mg/dL High <201 [facility] Comment on above: Cholesterol level, D esirable <200 mg/dLBorderline high cholesterol 200-239 mg/dLHigh cholesterol >=240 mg/dLRecommendations of the NCEP Adult Treatment Panel for the following risk-cutoff thresholds for the [place] population. Serum or plasma urea nitroge n measurement (mass/volume)Ordered By: Fox Fischer on 07-02-2024 Urea nitrogen [Mass/Vol] 15 mg/dL 4-19 [facility] Sodium levelOrdered By: Fox Fischer 07-02-2024 Sodium [Moles/Vol] 141 mmol/L 133-145 [facility] TSH DL <= 0.005 mIU/L QnOrde red By: Fox Fischer on 07-02-2024 Thyroid Stimulating Hormone (TSH) 2.240 uIU/mL 0.300-4.200 [facility] TSH Qn 2.240 uIU/mL 0.300-4.200 [facility] Thyroid Stim Hormone (TSH)on 07-02-2024 TSH 2.240 uIU/mL Normal 0.300-4.200 [facility] Comment on above: Performed By: #### L 500.4050, L100.0100, L500.4100, L506.1001, L501.9520 #### [facility] [address] [place], [place], [id number] Total proteinOrdered By: Fox Fischer 07-02-2024 Protein [Mass/Vol] 7.8 g/dL 5.9-8.4 [facility] Triglycerides measurementOrd ered By: Fox Fischer 07-02-2024 Triglyceride [Mass/Vol] 129 mg/dL <199 [facility] Comment on above: The drugs N-Acetylcy steine and Metamizole may falsely depress this assay. Normal range: <150 mg/dLBorderline High: 150-199 mg/dLHigh: 200-499 mg/dLVery High: >500 mg/dL Vitamin D, 25-hydroxyOrdered By: Fox Fischer on 07-02-2024 Vitamin D 25-Hydroxy 33.6 ng/mL 30-100 [facility] Comment on above: Vitamin D StatusDefi ciency: <20 ng/mL (50nmol/L)Insufficiency: 20-30 ng/mL (50-75 nmol/L)Sufficiency: 30-100 ng/mL (75-250 nmol/L)Toxicity: >100 ng/mL (>250 nmol/L) Vitamin D,25 Hydroxyon 07-02 Vitamin D 25-OH 33.6 ng/mL Normal 30-100 [facility] Comment on above: Result Comment: Sari min D Status Deficiency: <20 ng/mL (50nmol/L) Insufficiency: 20-30 ng/mL (50-75 nmol/L) Sufficiency: 30-100 ng/mL (75-250 nmol/L) Toxicity: >100 ng/mL (>250 nmol/L) Performed By: #### L 500.4050, L100.0100, L500.4100, L506.1001, L501.9520 #### [facility] [address] [place], [address] White blood cell (WBC) count Ordered By: Fox Fischer on 07-02-2024 WBC (Bld) [#/Vol] 6.1 10*3/uL 4.4-11.0 [facility] Pulmonary Visit Reporton Pulmonary Visit Report [facility] [place] [address] [place] [address] OFFICE VISIT Date of Service: 05/08/24 MR#: [id number] Acct: [id number] Name: CARLEE LEE Rep #: [id number] : 1945 Provider: XAVIER Patel Age/Sex: 78/M [facility] Status: Signed Assessment and Plan Assessment and Plan (1) MARIBELL (obstructive sleep apnea): Status: Chronic Comment: BiPAP 17/ centimeters of water Plan: He is using and benefiting from Pap therapy. No indication for titration study at this time. Contact the office for any new or worsening symptoms in the meantime. Follow-up in one year. (2) Stage 2 moderate COPD by GOLD classification: Status: Chronic Plan: Asymptomatic. He is not requiring any inhalers. No additional testing at this time. Plan Details Follow Up: 1 Year ([facility]) HPI HPI Comments Details: This patient presents to the office today for follow-up of his obstructive sleep apnea and moderate COPD. He is ambulatory and currently on room air. He has not recently been seen in the ED or urgent care for any respiratory illness. He has not required any antibiotics or prednisone for any breathing problems. He is not currently on any maintenance inhalers. He has not utilized albuterol rescue inhaler years. He is not interested in a refill on his albuterol. If you recall, he quit smoking back in 2008. He completed surveillance of a previously identified lung nodule. No further imaging was indicated. He has shortness of breath on exertion, this has not progressed. He has a dry mouth in the mornings, he has an occasional dry cough. He denies any sputum production or hemoptysis. He has occasional wheezing but denies any chest tightness, chest pain or palpitations. He has not had any fever, chills or bodyaches. He wakes up feeling rested and refreshed with use of his PAP device. He is not having excessive nocturia. He does not require naps and is not nodding off to sleep unintentionally. He denies any difficulty with morning headaches. Compliance report for the past 30 days shows 93% compliance with average use of 7 hours and 14 minutes per night. Current setting is BiPAP 17/13 cmH2O with residual AHI of 2.2 events per hour. Leaks do not appear to be problematic. Intake Vital Signs 02/27/24 07:42 05/08/24 07:55 Height 6 ft 1 in 6 ft 1 in Weight: 205 lb BMI 27.0 BP 161/82 H Blood Pressure Location Lt brachial Position Sitting Respiration 18 Pulse 66 Pulse Source Monitor Temp 97.2 F L Temperature Source Temporal Artery Pulse Oximetry (%) 97 Oxygen Delivery Method room air Intake Visit Reasons: 1 Y FU Chief Complaint: Chest pressure [place] Director Required: No DME Vendor: [employer] Accompanied by: Self Allergies Food Allergies: Uncoded Allergy (Verified 05/08/24 11:12) Rash Iodine and Iodide Containing Produc Allergy (Verified 05/08/24 11:12) Itching shellfish derived Allergy (Verified 05/08/24 11:12) Itching losartan Adverse Reaction (Severe, Verified 05/08/24 11:12) Severe hypotension and near syncope petrolatum,white (From Petroleum Jelly) Adverse Reaction (Verified 05/08/24 11:12) Other Mmfciog-YPB-AaI Reductase Inhibitor (Duetkdv-Fgw-Xai Reductase Inhibitor) Adverse Reaction (Verified 05/08/24 11:12) Other Medications ???Medication ???Instructions ???Recorded ???Confirmed ???Type levothyroxine 25 mcg capsule 25 mcg PO DAILY 04/27/20 05/08/24 History albuterol sulfate 90 mcg/actuation 2 puff inhalation Q4H PRN 05/08/24 Rx aerosol inhaler (Ventolin HFA) shortness of breath or wheezing #18 grams tamsulosin 0.4 mg capsule 0.4 mg PO DAILY 01/25/22 05/08/24 History multivitamin 1 tab PO DAILY 02/26/22 05/08/24 H istory gemfibrozil 600 mg tablet 600 mg PO BID #180 tabs 04/10/23 0 05/08/24 Rx metoprolol tartrate 25 mg tablet 12.5 mg (1/2 x 25 mg) PO BID heart 04/10/23 05/08/24 Rx #90 tabs amlodipine 5 mg tablet 5 mg PO DAILY 07/04/23 05/08/24 Hi story cholecalciferol (vitamin D3) 25 25 mcg PO DAILY 07/04/23 05/08/24 History mcg (1,000 unit) capsule ezetimibe 10 mg tablet (Zetia) 10 mg PO DAILY #90 tabs 10/10/23 0 05/08/24 Rx escitalopram oxalate 5 mg tablet 5 mg PO QDAY 02/03/24 05/08/24 His tory vitamins A,C,X-zzrt-hatkly 4,296 1 cap PO BID 02/03/24 05/08/24 His tory mcg-226 mg-90 mg capsule (PreserVision AREDS) aspirin 81 mg tablet,delayed 81 mg PO .qod #45 tabs 04/06/24 Rx release famotidine 20 mg tablet 20 mg PO QDAY 05/08/24 05/08/24 Hi story latanoprost 0.005 % eye drops 1 drp ophthalmic (eye) QHS 5 05/08/24 History Have you fallen in the past year?: Yes [facility] Medical History (Reviewed 05/08/24 @ 11:19 by Pam Patel [employer], [employer]EC[employer]IVE-C) Wears gl (more content not included)... Normal [facility] 12 Lead EKG performed by [facility] on 02-03-2024 12 Lead EKG performed by [facility] [address] [place] [address] 12 Lead EKG performed by [facility] 02/03/24 1015 MR#: [id number] Acct: [id number] Name: CARLEE LEE Rep #: [id number] : 1945 78 From: Brandon Fulton MD Attending Dr: Dr. Brandon Fulton MD Status: DE P AMB Ordering Dr: Brandon Fulton MD Date: 02/03/24 Location: [facility] Sex: M C Admitted: BMS/12 Lead EKG performed by [facility] ECG Report Interpretation --Sinus Rhythm - occasional PAC # PACs = 1.WITHIN NORMAL LIMITSElectronically signed on 02/03/2024 at 11:[address] Brandon Fulton [employer] Version 8610 02/03/24 1156 Date Brandon Fulton MD CC: Dr. Fox Fischer MD Date Dictated: 02/03/24 1015 Date Transcribed: 02/03/24 1015 Applied Statistician: Signed Normal [facility] Cardiology Visit Reporton Cardiology Visit Report [facility] [address] [place] [address] OFFICE VISIT Date of Service: 02/03/24 MR#: [id number] Acct: [id number] Name: CARLEE LEE Rep #: [id number] : 1945 Provider: Dr. Brandon blackmon MD Age/Sex: 78/M Location: [facility] Status: Signed HPI HPI History of Present Illness Details: Carlee Lee is a 78-year-old gentleman that presents here today for cardiovascular monitoring. He has a history of coronary artery disease with stenting to his LAD in 2019, hyperlipidemia???intoler ant to all statin therapy, hypertension and obstructive sleep apnea treated with CPAP. From a cardiac standpoint, patient is doing well. He does not have any chest discomfort/heaviness/tig htness. His exercise tolerance is stable for his age. He does try to walk 3-5 miles a day. He has noted no drop-off in his exercise tolerance over the last 6 months. He does have a history of mild aortic stenosis by echocardiogram April 2021. He does not have any worsening symptoms of shortness of breath. He denies any PND. He does not have any orthopnea. He does not have any symptoms of congestive heart failure. He does not have any palpitations that he is aware of. He does not have any lightheadedness or dizziness. He does not have any near-syncope or syncope. Intake Vital Signs 08/20/23 09:27 02/03/24 10:15 Height 6 ft 1 in 6 ft 1 in Weight: 201 lb BMI 26.5 BP 122/67 H Blood Pressure Location Lt brachial Position Sitting Respiration 18 Pulse 58 L Pulse Source Monitor Intake Visit Reasons: 6 M FU [employer] Director Required: No Accompanied by: Self Is patient in pain?: No Allergies Food Allergies: Uncoded Allergy (Verified 02/03/24 10:18) Rash Iodine and Iodide Containing Produc Allergy (Verified 02/03/24 10:18) Itching shellfish derived Allergy (Verified 02/03/24 10:18) Itching losartan Adverse Reaction (Severe, Verified 02/03/24 10:18) Severe hypotension and near syncope petrolatum,white (From Petroleum Jelly) Adverse Reaction (Verified 02/03/24 10:18) Other Rprtiom-ICL-ZkE Reductase Inhibitor (Hrwxize-Pec-Ufy Reductase Inhibitor) Adverse Reaction (Verified 02/03/24 10:18) Other Medications ???Medication ???Instructions ???Recorded ???Confirmed ???Type levothyroxine 25 mcg capsule 25 mcg PO DAILY 04/27/20 02/03/24 History albuterol sulfate 90 mcg/actuation 2 puff inhalation Q4H PRN 07/15/20 02/03/24 Rx aerosol inhaler (Ventolin HFA) shortness of breath or wheezing #18 grams tamsulosin 0.4 mg capsule 0.4 mg PO DAILY 01/25/22 02/03/24 History multivitamin 1 tab PO DAILY 02/26/22 02/03/24 History gemfibrozil 600 mg tablet 600 mg PO BID #180 tabs 04/10/23 02/03/24 Rx metoprolol tartrate 25 mg tablet 12.5 mg (1/2 x 25 mg) PO BID heart 04/10/23 02/03/24 Rx #90 tabs aspirin 81 mg tablet,delayed 81 mg PO .qod #45 tabs 05/08/23 02/03/24 Rx release amlodipine 5 mg tablet 5 mg PO DAILY 07/04/23 02/03/24 History cholecalciferol (vitamin D3) 25 25 mcg PO DAILY 07/04/23 02/03/24 History mcg (1,000 unit) capsule ezetimibe 10 mg tablet (Zetia) 10 mg PO DAILY #90 tabs 10/10/23 02/03/24 Rx escitalopram oxalate 5 mg tablet 5 mg PO QDAY 02/03/24 02/03/24 History vitamins A,C,M-dtaf-dsrkmx 4,296 1 cap PO BID 02/03/24 02/03/24 History mcg-226 mg-90 mg capsule (PreserVision AREDS) Ejection fraction %: 60 Have you fallen in the past year?: Yes PFSH Medical History Wears glasses Wears partial dentures Cancer Alcohol use High cholesterol Umbilical hernia Former smoker CPAP (continuous positive airway pressure) dependence Sleep apnea Emphysema, unspecified COPD (chronic obstructive pulmonary disease) History of pain when walking History of echocardiogram Hypertension Cardiology follow-up encounter History of irregular heartbeat CKD (chronic kidney disease) BPH (benign prostatic hyperplasia) Hypokalemia Hypothyroidism CAD (coronary artery disease) Nonrheumatic aortic (valve) stenosis Deviated septum BILATERALLY KNEE CARTILAGE Hyperlipidemia Essential hypertension Atherosclerotic heart disease of [place] coronary artery without angina pectoris Atypical chest pain Subacute bronchitis Surgical History H/O knee surgery History of hernia surgery History of coronary artery stent placement History of cardiac catheterization H/O vitrectomy (09/2019) H/O bilateral inguinal hernia repair Stented coronary artery (05/23/19) Family History Father CAD (coronary artery disease) Myocardial infarction, Onset Age: 61 Pulmonary embolus DVT (deep venous thrombosis) Social History (Re (more content not included)... Normal [facility] Vitamin D,25 Hydroxyon 01-02 Vitamin D 25-OH 29.2 ng/mL Normal [facility] Comment on above: Result Comment: Sari min D 25(OH) Status Range Deficiency <20 ng/mL (50nmol/L) Insufficiency 20 - 30 ng/mL (50 - 75 nmol/L) Sufficiency 30 - 100 ng/mL (75 - 250 nmol/L) Toxicity >100 ng/mL (>250 nmol/L) Performed By: #### L 100.0100, L500.4100, L500.4050, L506.1000, L501.9520 ####[facility] [address] [place], [address] CBC W/Diff, Automatedon 12-16 Absolute Lymph 1.79 X10 3/uL Normal 0.83-4.51 [facility] Comment on above: Performed By: #### L 100.0100, L500.4100, L500.4050, L506.1000, L501.9520 ####[facility] [address] [place], [address] Absolute Neut 3.3 X10 3/uL Normal 2.0-7.7 [facility] Comment on above: Performed By: #### L 100.0100, L500.4100, L500.4050, L506.1000, L501.9520 ####[facility] [address] [place], [address] Basophils/100 WBC (Bld) 0.9 % Normal 0-1 [facility] Comment on above: Performed By: #### L 100.0100, L500.4100, L500.4050, L506.1000, L501.9520 ####[facility] [address] [place], [address] Eosinophils/100 WBC (Bld) 8.6 % High 0-5 [facility] Comment on above: Performed By: #### L 100.0100, L500.4100, L500.4050, L506.1000, L501.9520 ####[facility] [address] [place], [address] Erythrocyte distribution width (RBC) [Ratio] 13.2 % Normal 11.6-14.6 [facility] Comment on above: Performed By: #### L 100.0100, L500.4100, L500.4050, L506.1000, L501.9520 ####[facility] [address] [place], [address] Hematocrit (Bld) [Volume fraction] 43.1 % Normal 40-54 [facility] Comment on above: Performed By: #### L 100.0100, L500.4100, L500.4050, L506.1000, L501.9520 ####[facility] [address] [place], [address] Hemoglobin (Bld) [Mass/Vol] 14.6 g/dL Normal 13.0-16.5 [facility] Comment on above: Performed By: #### L 100.0100, L500.4100, L500.4050, L506.1000, L501.9520 ####[facility] [address] [place], [address] IG% 1.100 High 0.0-0.9 [facility] Comment on above: Result Comment: IG% - Immature Granulocytes (promyelocytes, myelocytes and metamyelocytes) > 1% indicates that a LEFT SHIFT is Present. Performed By: #### L 100.0100, L500.4100, L500.4050, L506.1000, L501.9520 ####[facility] [address] [place], [address] Lymphocytes/100 WBC (Bld) 28.1 % Normal 19-41 [facility] Comment on above: Performed By: #### L 100.0100, L500.4100, L500.4050, L506.1000, L501.9520 ####[facility] [address] [place], [address] MCH (RBC) [Entitic mass] 31.7 pg Normal 27.0-32.0 [facility] Comment on above: Performed By: #### L 100.0100, L500.4100, L500.4050, L506.1000, L501.9520 ####[facility] [address] [place], [address] MCHC (RBC) [Mass/Vol] 33.9 g/dL Normal 32-36 [facility] Comment on above: Performed By: #### L 100.0100, L500.4100, L500.4050, L506.1000, L501.9520 ####[facility] [address] [place], [address] MCV (RBC) [Entitic vol] 93.5 fL Normal 80-94 [facility] Comment on above: Performed By: #### L 100.0100, L500.4100, L500.4050, L506.1000, L501.9520 ####[facility] [address] [place], [address] Monocytes/100 WBC (Bld) 8.8 % Normal 0-10 [facility] Comment on above: Performed By: #### L 100.0100, L500.4100, L500.4050, L506.1000, L501.9520 ####[facility] [address] [place], [address] Neutrophils/100 WBC (Bld) 52.5 % Normal 47-70 [facility] Comment on above: Performed By: #### L 100.0100, L500.4100, L500.4050, L506.1000, L501.9520 ####[facility] [address] [place], [address] Nucleated RBC (Bld) [#/Vol] 0 10*3/uL Normal 0-5 [facility] Comment on above: Performed By: #### L 100.0100, L500.4100, L500.4050, L506.1000, L501.9520 ####[facility] [address] [place], [address] Platelet mean volume (Bld) [Entitic vol] 9.4 fL Normal 6.2-12.0 [facility] Comment on above: Performed By: #### L 100.0100, L500.4100, L500.4050, L506.1000, L501.9520 ####[facility] [address] [place], [address] Platelets (Bld) [#/Vol] 201 10*3/uL Normal 150-450 [facility] Comment on above: Performed By: #### L 100.0100, L500.4100, L500.4050, L506.1000, L501.9520 ####[facility] [address] [place], [address] RBC (Bld) [#/Vol] 4.61 10*6/uL Normal 4.6-6.2 [facility] Comment on above: Performed By: #### L 100.0100, L500.4100, L500.4050, L506.1000, L501.9520 ####[facility] [address] [place], [address] RDW SD 45.0 fl High 35.1-43.9 [facility] Comment on above: Performed By: #### L 100.0100, L500.4100, L500.4050, L506.1000, L501.9520 ####[facility] [address] [place], [address] WBC (Bld) [#/Vol] 6.4 10*3/uL Normal 4.4-11.0 [facility] Comment on above: Performed By: #### L 100.0100, L500.4100, L500.4050, L506.1000, L501.9520 ####[facility] [address] [place], [address] Comprehensive Metabolic [facility] ilon 01-02-2024 Albumin [Mass/Vol] 4.0 g/dL Normal 3.2-5.0 [facility] Comment on above: Performed By: #### L 100.0100, L500.4100, L500.4050, L506.1000, L501.9520 ####[facility] [address] [place], [address] Albumin/Globulin [Mass ratio] 1.1 {ratio} Normal 0.9-2.4 [facility] Comment on above: Performed By: #### L 100.0100, L500.4100, L500.4050, L506.1000, L501.9520 ####[facility] [address] [place], [address] ALK P 83 U/L Normal 45-117 [facility] Comment on above: Performed By: #### L 100.0100, L500.4100, L500.4050, L506.1000, L501.9520 ####[facility] [address] [place], [address] ALT [Catalytic activity/Vol] 18 U/L Normal 16-61 [facility] Comment on above: Performed By: #### L 100.0100, L500.4100, L500.4050, L506.1000, L501.9520 ####[facility] [address] [place], [address] AST [Catalytic activity/Vol] 17 U/L Normal 15-37 [facility] Comment on above: Performed By: #### L 100.0100, L500.4100, L500.4050, L506.1000, L501.9520 ####[facility] [address] [place], [address] Bilirubin [Mass/Vol] 0.60 mg/dL Normal 0.20-1.00 [facility] Comment on above: Result Comment: For patients on eltrombopag therapy, use of Dimension [place] TBIL is not recommended. Performed By: #### L 100.0100, L500.4100, L500.4050, L506.1000, L501.9520 ####[facility] [address] [place], [address] BUN/CRE 12.8 RATIO Normal 10-20 [facility] Comment on above: Performed By: #### L 100.0100, L500.4100, L500.4050, L506.1000, L501.9520 ####[facility] [address] [place], [address] CA,Total 9.0 mg/dL Normal 8.5-10.1 [facility] Comment on above: Performed By: #### L 100.0100, L500.4100, L500.4050, L506.1000, L501.9520 ####[facility] [address] [place], [address] Chloride [Moles/Vol] 108 mmol/L High 98-107 [facility] Comment on above: Performed By: #### L 100.0100, L500.4100, L500.4050, L506.1000, L501.9520 ####[facility] [address] [place], [address] CO2 [Moles/Vol] 27.0 mmol/L Normal 21.0-32.0 [facility] Comment on above: Performed By: #### L 100.0100, L500.4100, L500.4050, L506.1000, L501.9520 ####[facility] [address] [place], [address] Creatinine [Mass/Vol] 1.25 mg/dL Normal 0.70-1.30 [facility] Comment on above: Result Comment: The validity of the calculated GFR GFRAA in patients over 70 years has not been determined. Clinical correlation is essential. Performed By: #### L 100.0100, L500.4100, L500.4050, L506.1000, L501.9520 ####[facility] [address] [place], [address] EST GFR - AA 71 mL/min Normal >60 [facility] Comment on above: Result Comment: Afri can Egyptian GFR Calc Performed By: #### L 100.0100, L500.4100, L500.4050, L506.1000, L501.9520 ####[facility] [address] [place], [address] GAP 6 Normal 5-15 [facility] Comment on above: Performed By: #### L 100.0100, L500.4100, L500.4050, L506.1000, L501.9520 ####[facility] [address] [place], [address] GFR/1.73 sq M.predicted among non-blacks MDRD (S/P/Bld) [Vol rate/Area] 59 mL/min/{1.73_m2} Low >60 [facility] Comment on above: Result Comment: Non- GFR Calc Performed By: #### L 100.0100, L500.4100, L500.4050, L506.1000, L501.9520 ####[facility] [address] [place], [address] Globulin (S) [Mass/Vol] 3.8 g/dL Normal 2.2-4.2 [facility] Comment on above: Performed By: #### L 100.0100, L500.4100, L500.4050, L506.1000, L501.9520 ####[facility] [address] [place], [address] Glucose [Mass/Vol] 121 mg/dL High 74-106 [facility] Comment on above: Result Comment: Fast ing Glucose result from 100 to 125 mg/dL suggests IMPAIRED HOMEOSTASIS per A.D.A. criteria. Performed By: #### L 100.0100, L500.4100, L500.4050, L506.1000, L501.9520 ####[facility] [address] [place], [address] Potassium [Moles/Vol] 3.8 mmol/L Normal 3.5-5.1 [facility] Comment on above: Performed By: #### L 100.0100, L500.4100, L500.4050, L506.1000, L501.9520 ####[facility] [address] [place], [address] Sodium [Moles/Vol] 140 mmol/L Normal 136-145 [facility] Comment on above: Performed By: #### L 100.0100, L500.4100, L500.4050, L506.1000, L501.9520 ####[facility] [address] [place], [address] T PROT 7.8 g/dL Normal 6.4-8.2 [facility] Comment on above: Performed By: #### L 100.0100, L500.4100, L500.4050, L506.1000, L501.9520 ####[facility] [address] [place], [address] Urea nitrogen [Mass/Vol] 16 mg/dL Normal 7-18 [facility] Comment on above: Performed By: #### L 100.0100, L500.4100, L500.4050, L506.1000, L501.9520 ####[facility] [address] [place], [address] Lipid Profileon 01-02-2024 Cholesterol [Mass/Vol] 208 mg/dL High 200 [facility] Comment on above: Result Comment: <200 mg/dL Desirable 200-240 mg/dL Borderline >240 mg/dL High Risk Performed By: #### L 100.0100, L500.4100, L500.4050, L506.1000, L501.9520 ####[facility] [address] [place], [address] Cholesterol in HDL [Mass/Vol] 52 mg/dL Normal [facility] Comment on above: Result Comment: The drugs N-Acetylcysteine and Metamizole may falsely depress this assay. Reference Range HDL <40 mg/dL Low HDL Cholesterol HDL >or= 60 mg/dL High HDL Cholesterol Performed By: #### L 100.0100, L500.4100, L500.4050, L506.1000, L501.9520 ####[facility] [address] [place], [address] Cholesterol in LDL [Mass/Vol] 136 mg/dL High 0-130 [facility] Comment on above: Performed By: #### L 100.0100, L500.4100, L500.4050, L506.1000, L501.9520 ####[facility] [address] [place], [address] Cholesterol in VLDL [Mass/Vol] 20 mg/dL Normal 5-40 [facility] Comment on above: Performed By: #### L 100.0100, L500.4100, L500.4050, L506.1000, L501.9520 ####[facility] [address] [place], [address] Triglyceride [Mass/Vol] 102 mg/dL Normal [facility] Comment on above: Result Comment: The drugs N-Acetylcysteine and Metamizole may falsely depress this assay. Serum Triglycerides Reference Interval Normal <150 mg/dL Borderline high 150 - 199 mg/dL High 200 - 499 mg/dL Very High > or = 500 mg/dL Performed By: #### L 100.0100, L500.4100, L500.4050, L506.1000, L501.9520 ####[facility] [address] [place], [address] Thyroid Stim Hormone (TSH)on 01-02-2024 TSH 1.830 uIU/mL Normal 0.358-3.740 [facility] Comment on above: Performed By: #### L 100.0100, L500.4100, L500.4050, L506.1000, L501.9520 ####[facility] [address] [place], [address] Renal Profileon 10-29-2023 Albumin [Mass/Vol] 3.9 g/dL Normal 3.2-5.0 [facility] Comment on above: Performed By: #### L 500.3600 ####[facility] [address] [place], [address] BUN/CRE 9.2 RATIO Low 10-20 [facility] Comment on above: Performed By: #### L 500.3600 ####[facility] [address] [place], [address] CA,Total 9.0 mg/dL Normal 8.5-10.1 [facility] Comment on above: Performed By: #### L 500.3600 ####[facility] [address] [place], [address] Chloride [Moles/Vol] 106 mmol/L Normal 98-107 [facility] Comment on above: Performed By: #### L 500.3600 ####[facility] [address] [place], [address] CO2 [Moles/Vol] 26.0 mmol/L Normal 21.0-32.0 [facility] Comment on above: Performed By: #### L 500.3600 ####[facility] [address] [place], [address] Creatinine [Mass/Vol] 1.30 mg/dL Normal 0.70-1.30 [facility] Comment on above: Result Comment: The validity of the calculated GFR GFRAA in patients over 70 years has not been determined. Clinical correlation is essential. Performed By: #### L 500.3600 ####[facility] [address] [place], [address] EST GFR - AA 68 mL/min Normal >60 [facility] Comment on above: Result Comment: Afri can Egyptian GFR Calc Performed By: #### L 500.3600 ####[facility] [address] [place], [address] GFR/1.73 sq M.predicted among non-blacks MDRD (S/P/Bld) [Vol rate/Area] 57 mL/min/{1.73_m2} Low >60 [facility] Comment on above: Result Comment: Non- GFR Calc Performed By: #### L 500.3600 ####[facility] [address] [place], [address] Glucose [Mass/Vol] 104 mg/dL Normal 74-106 [facility] Comment on above: Result Comment: Fast ing Glucose result from 100 to 125 mg/dL suggests IMPAIRED HOMEOSTASIS per A.D.A. criteria. Performed By: #### L 500.3600 ####[facility] [address] [place], [address] Phosphate [Mass/Vol] 2.4 mg/dL Low 2.5-4.9 [facility] Comment on above: Performed By: #### L 500.3600 ####[facility] [address] [place], [address] Potassium [Moles/Vol] 3.8 mmol/L Normal 3.5-5.1 [facility] Comment on above: Performed By: #### L 500.3600 ####[facility] [address] [place], [address] Sodium [Moles/Vol] 140 mmol/L Normal 136-145 [facility] Comment on above: Performed By: #### L 500.3600 ####[facility] [address] [place], [address] Urea nitrogen [Mass/Vol] 12 mg/dL Normal 7-18 [facility] Comment on above: Performed By: #### L 500.3600 ####[facility] [address] [place], [address] Partial Thromboplast Timeon 08-20-2023 aPTT Coag (Bld) [Time] 35.9 s Normal 24.1-36.2 [facility] Comment on above: Performed By: #### L 100.1900, L300.3900, L300.4310 ####[facility] [address] [place], [address] Platelet Counton 08-20-2023 Platelets (Bld) [#/Vol] 234 10*3/uL Normal 150-450 [facility] Comment on above: Performed By: #### L 100.1900, L300.3900, L300.4310 #### [facility] [address] [place], [address] Procedure Reporton Procedure Report [facility] Medical Records Department [address] [place] [address] Procedure Report 08/20/23 1104 MR#: [id number] Acct: [id number] Name: CARLEE LEE Rep #: [id number] : 1945 [id number] From: [employer] Mor[employer] PCP: Dr. Fox Fischer MD Status:REG CLI Location: CT Procedure Report Date of Procedure: 08/20/23 Assessment Plan Assessment/Plan (1) Neoplasm of right kidney: PLAN: PROCEDURE: CT GUIDED RIGHT PERCUTANEOUS KIDNEY BIOPSY. ORDERING PROVIDER: Dr. Vazquez INDICATION: Male, 77 years old. Neoplasm of right kidney. PROVIDER: PATRICIO Rubio CONSENT: Written informed consent was obtained having explained the risks, benefits and alternatives in detail with the patient. The specific risk of hemorrhage requiring further treatment or intervention was detailed and accepted. The patient accepted the risks and agreed to proceed. Laboratory review and clinical assessment was performed. PRE-PROCEDURE SEDATION ASSESSMENT: Current history and physical dictated by referring provider and reviewed. No clinical changes since date of exam. Patient has an ASA Class of 2. PROCEDURAL SEDATION PROTOCOL: The Drugs used were: 2 mg Versed, IV, and 100 mcg Fentanyl, IV. The sedation time was: 30 minutes, starting at 10:00 and terminated at 1030. The procedural sedation protocol was independently monitored by the department nurse. RADIATION DOSAGE (If Supplied By Facility): CTDIvol = 15.89 mGy, DLP = 347.98 mGycm Individualized dose optimization techniques were used for this CT. TECHNIQUE: The patient was placed on the CT table in the prone position. Multiple axial images were obtained from the lung base through the caudal extent of the kidneys. An appropriate entry site was identified and a lelia made on the skin. The skin overlying the right posterior flank was prepped and draped in sterile fashion. 2% lidocaine was administered subcutaneously for local anesthesia. Using CT guidance, an 18-gauge coaxial biopsy device was advanced to the periphery of the lesion located in the right kidney. A total of 4 core specimens were obtained. Specimens were microscopically reviewed by pathology in the CT suite and placed in formalin solution for further analysis. The needle was withdrawn. Hemostasis was achieved with manual compression and a sterile dressing was applied. The patient tolerated the procedure well without immediate complications. The patient returned to the holding bay in stable condition for nursing monitoring, per protocol. IMPRESSION: 1. Successful CT guided percutaneous right kidney biopsy. Pathology results are pending. 2. Procedural Sedation protocol utilized with independent monitoring by the department nurse. Procedures Radiology Radiology CT Procedures: 33587 Biopsy Kidney Multi Select Codes Radiology Radiology CT Procedures: 71730-15 CT guidance parenchymal tissue 08/20/23 1109 Cosigner Signature (if applicable): CC: XAVIER Morales; Dr. Ciaran Vazquez MD; Dr. Fox Fischer MD Signed Normal [facility] Prothrombin Time w/INRon INR Coag (PPP) [Relative time] 1.2 {INR} Normal [facility] Comment on above: Performed By: #### L 100.1900, L300.3900, L300.4310 #### [facility] [address] [place], [address] PT Coag (PPP) [Time] 15.4 s High 11.7-14.9 [facility] Comment on above: Performed By: #### L 100.1900, L300.3900, L300.4310 #### [facility] [address] [place], [address] Special Stain Group IIon Special Stain Group II ------- Patient Age/Sex Location Account Attending Physician CARLEE LEE 77/M CT [id number] Dr. Ciaran Vazquez MD Specimen: [id number] Received: 08/20/23 Status: KRYSTIN Morin Num: [id number] Spec Type: ASP RAD Subm Dr: Dr. 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 See comment. / 08/21/2023 COMMENT Correlation with clinical, radiologic findings and appropriate follow up are necessary. Case has been reviewed in consultation with Dr. Severino who concurs with the above diagnosis. IDC:AM The specimen is evaluated at the time of biopsy by Dr. Irving. Immediate Evaluation = Mildly atypical cells noted. MICROSCOPIC DESCRIPTION Slides are reviewed. GROSS DESCRIPTION Received in fixative is one container labeled with the patient's name and designated Right kidney mass. The specimen consists of multiple irregular fragments of canas soft tissue that in aggregate measure 1.0 x 0.2 x 0.1 cm. The specimen is totally submitted in one cassette. Two touch imprints are prepared at the time of core biopsy. / 08/20/2023 TC:1 CPT:82492,023646 Patient Age/Sex Location Account Attending Physician CARLEE LEE 77/M CT [id number] Dr. Ciaran Vazquez MD Signed (signature on file) Dr. Amrit Irving MD 08/21/23 1031 Normal [facility] Comment on above: Performed By: #### P SSII ####[facility] [address] [place], [place], [id number] ABO/Rh (Gel)on 07-16-2023 ABO/Rh Interp Positive Invalid Interpretation Code [facility] ([place]) Comment on above: Performed By: #### A BSGEL, ABOGEL #### [address] [place], [place] [address] ABS (Gel)on 07-16-2023 ABSC Interp (Gel) Negative Normal [facility] ([place]) Comment on above: Performed By: #### A BOGEL, ABSGEL, ALB, CBC, ANEU, ADIFF, GFR, BMP #### [address] [place], [place] [address] LABORATORYOrdered By: Kiki Gill on 07-16-2023 ABO and Rh group Nom (Bld) Blood group O Rh(D) positive Invalid Interpretation Code AO BB Auto SS Blood group antibody screen Ql Negative ABSC (07/16/23 6:02 AM) Normal AO BB Auto SS XR KNEE 1 OR 2 VIEWS LEFTon 07-16-2023 XR KNEE 1 OR 2 VIEWS LEFT ORIGINAL EXAMINATION: TWO XRAY VIEWS OF THE LEFT KNEE07/16/2023 9:15 am COMPARISON: CT knee, 06/26/2023. HISTORY: ORDERING SYSTEM PROVIDED HISTORY: Reason for Exam: Status Post Arthroplasty FINDINGS: A new medial tibiofemoral compartment hemiarthroplasty seen. Air and fluid seen in the joint space and soft tissues. No periprosthetic fracture. Mild patellofemoral degenerative changes. Vascular calcifications. Skin armen. IMPRESSION: Interval hemiarthroplasty. Prosthesis demonstrates anatomic alignment Interpreted by: Jose Worthy MD Preliminary Report By: Jose Worthy MD Electronically signed By Jose Worthy MD Dictated Date: 07/16/2023 9:22:21 AM Prelim Date: 07/16/2023 9:24:51 AM Sign Date: 07/16/2023 9:24:51 AM Ordering Provider: MISTI SHIRLEY Normal [facility] ([place]) Absolute lymphocyte countOrd ered By: Fox Fischer on 07-02-2023 Lymphocytes Auto (Unsp spec) [#/Vol] 1.90 10*3/uL 0.83-4.51 [facility] Automated lymphocyte count a s percentage of total leukocytesOrdered By: Fox Fischer on 07-02-2023 Lymphocytes/100 WBC Auto (Unsp spec) 29.4 % 19-41 [facility] Basophil percentageOrdered B y: Fox Fischer on 07-02-2023 Basophils/100 WBC (Bld) 0.6 % 0-1 [facility] Bilirubin [Mass/Vol] 0.60 mg/dL 0.20-1.00 [facility] Comment on above: For patients on eltr ombopag therapy, use of Dimension [place] TBIL is not recommended. Chloride [Moles/Vol] 109 mmol/L 98-107 [facility] Cholesterol [Mass/Vol] 199 mg/dL <200 [facility] Comment on above: <200 mg/dL Desirable 200-240 mg/dL Borderline >240 mg/dL High Risk Eosinophils/100 WBC (Bld) 7.6 % 0-5 [facility] Glucose [Mass/Vol] 132 mg/dL 74-106 [facility] Comment on above: Fasting Glucose resu lt greater than or equal to 126 mg/dL suggests DIABETES MELLITUS per A.D.A. criteria. Hemoglobin (Bld) [Mass/Vol] 13.9 g/dL 13.0-16.5 [facility] Monocytes/100 WBC (Bld) 8.5 % 0-10 [facility] Neutrophils (Bld) [#/Vol] 3.5 10*3/uL 2.0-7.7 [facility] Neutrophils/100 WBC (Bld) 53.3 % 47-70 [facility] Potassium [Moles/Vol] 3.9 mmol/L 3.5-5.1 [facility] Protein [Mass/Vol] 7.5 g/dL 6.4-8.2 [facility] Sodium [Moles/Vol] 141 mmol/L 136-145 [facility] Triglyceride [Mass/Vol] 108 mg/dL <199 [facility] Comment on above: The drugs N-Acetylcy steine and Metamizole may falsely depress this assay.Serum Triglycerides Reference Interval Normal <150 mg/dL Borderline high 150 - 199 mg/dL High 200 - 499 mg/dL Very High > or = 500 mg/dL WBC (Bld) [#/Vol] 6.5 10*3/uL 4.4-11.0 [facility] Determination of erythrocyte mean corpuscular volume (MCV)Ordered By: Fox Fischer on 07-02-2023 MCV (RBC) [Entitic vol] 94.4 fL 80-94 [facility] Erythrocyte distribution wid th ratioOrdered By: [facility] on 07-02-2023 Erythrocyte distribution width (RBC) [Ratio] 12.5 % 11.6-14.6 [facility] Erythrocyte distribution wid th standard deviationOrdered By: [facility] on 07-02-2023 Erythrocyte distribution width (RBC) [Entitic vol] 43.1 fL 35.1-43.9 [facility] Hematocrit Auto (Bld) [Volum e fraction]Ordered By: [facility] on 07-02-2023 Hematocrit (Bld) [Volume fraction] 42.3 % 40-54 [facility] Immature granulocytes/100 WB C Auto (Bld)Ordered By: [facility] 07-02-2023 Immature granulocytes/100 WBC (Bld) 0.600 % 0.0-0.9 [facility] Comment on above: IG% - Immature Granu locytes (promyelocytes, myelocytes and metamyelocytes) > 1% indicates that a LEFT SHIFT is Present. Laboratory - Chemistry and C hemistry - challengeOrdered By: [facility] 07-02-2023 Albumin/Globulin [Mass ratio] 1.1 {ratio} 0.9-2.4 [facility] ALP [Catalytic activity/Vol] 66 U/L 45-117 [facility] ALT [Catalytic activity/Vol] 39 U/L 16-61 [facility] Cholesterol in HDL [Mass/Vol] 49 mg/dL >40 [facility] Comment on above: The drugs N-Acetylcy steine and Metamizole may falsely depress this assay. Reference Range HDL <40 mg/dL Low HDL Cholesterol HDL >or= 60 mg/dL High HDL Cholesterol Cholesterol in LDL [Mass/Vol] 128 mg/dL 0-130 [facility] CO2 [Moles/Vol] 26.0 mmol/L 21.0-32.0 [facility] Globulin (S) [Mass/Vol] 3.6 g/dL 2.2-4.2 [facility] Urea nitrogen/Creatinine [Mass ratio] 15.5 mg/mg 10-20 [facility] Laboratory - Hematology and Cell countsOrdered By: [facility] MCH (RBC) [Entitic mass] 31.0 pg 27.0-32.0 [facility] MCHC (RBC) [Mass/Vol] 32.9 g/dL 32-36 [facility] Nucleated RBC/100 WBC (Bld) [Ratio] 0 % 0-5 [facility] Platelet mean volume (Bld) [Entitic vol] 10.1 fL 6.2-12.0 [facility] Platelets (Bld) [#/Vol] 203 10*3/uL 150-450 [facility] No Panel InformationOrdered By: Fox Fischer on 07-02-2023 Estimated GFR (MDRD) Amer 69 mL/min >60 [facility] Comment on above: GFR Calc Estimated GFR (MDRD) Non-Af Amer 57 mL/min >60 [facility] Comment on above: Non- GFR Calc Prostate Specific Antigen Screen 1.39 ng/mL 0.00-4.00 [facility] Comment on above: This test was perfor med using the TPSA assay method for the[employer] chemistry system. Values obtained with differentassay methods cannot be used interchangably.When changing PSA assays in the course of monitoring apatient, additional sequential testing should be carriedout to confirm baseline values. Vitamin D 25-Hydroxy 35.5 ng/mL [facility] Comment on above: Vitamin D 25(OH) Sta tus Range Deficiency <20 ng/mL (50nmol/L) Insufficiency 20 - 30 ng/mL (50 - 75 nmol/L) Sufficiency 30 - 100 ng/mL (75 - 250 nmol/L) Toxicity >100 ng/mL (>250 nmol/L) VLDL Cholesterol 22 mg/dL 5-40 [facility] RBC Auto (Bld) [#/Vol]Ordere d By: Fox Fischer on 07-02-2023 RBC (Bld) [#/Vol] 4.48 10*6/uL 4.6-6.2 [facility] Serum or plasma calcium prem urement (mass/volume)Ordered By: Fox Fischer on 07-02-2023 Calcium [Mass/Vol] 9.1 mg/dL 8.5-10.1 [facility] Serum or plasma creatinine m easurement (mass/volume)Ordered By: Fox Fischer on 07-02-2023 Creatinine [Mass/Vol] 1.29 mg/dL 0.70-1.30 [facility] Comment on above: The validity of the calculated GFR & GFRAA in patients over 70 years has not been determined. Clinical correlation is essential. Serum or plasma thyroid stim ulating hormone (TSH) measurement (units/volume)Ordered By: Fox Fischer on 07-02-2023 TSH Qn 1.69 uIU/mL 0.358-3.74 [facility] Serum or plasma urea nitroge n measurement (mass/volume)Ordered By: Fox Fischer on 07-02-2023 Urea nitrogen [Mass/Vol] 20 mg/dL 7-18 [facility] Thin prep Papanicolaou smear with manual screeningOrdered By: Fox Fischer on 07-02-2023 Thin prep Papanicolaou smear with manual screening 3.9 g/dL 3.2-5.0 [facility] Thin prep Papanicolaou smear with manual screening 32 U/L 15-37 [facility] Thin prep Papanicolaou smear with manual screening 6 5-15 [facility] .Auto Diffon 06-26-2023 Basophil, Absolute 0.0 10 3/mcL Normal 0.0-0.2 [facility] ([place]) Comment on above: Performed By: #### A BOGEL, ABSGEL, ALB, CBC, ANEU, ADIFF, GFR, BMP #### [address] [address] Basophils/100 WBC (Bld) 0.8 % Normal 0.0-2.5 [facility] ([place]) Comment on above: Performed By: #### A BOGEL, ABSGEL, ALB, CBC, ANEU, ADIFF, GFR, BMP #### [address] [address] Eosinophil, Absolute 0.4 10 3/mcL Normal 0.0-0.4 [facility] ([place]) Comment on above: Performed By: #### A BOGEL, ABSGEL, ALB, CBC, ANEU, ADIFF, GFR, BMP #### [address] [address] Eosinophils/100 WBC (Bld) 7.4 % High 0.0-7.0 [facility] ([place]) Comment on above: Performed By: #### A BOGEL, ABSGEL, ALB, CBC, ANEU, ADIFF, GFR, BMP #### [address] [address] Lymphocyte, Absolute 1.6 10 3/mcL Normal 0.8-3.9 [facility] ([place]) Comment on above: Performed By: #### A BOGEL, ABSGEL, ALB, CBC, ANEU, ADIFF, GFR, BMP #### [address] [address] Lymphocytes/100 WBC (Bld) 28.0 % Normal 10.0-50.0 [facility] ([place]) Comment on above: Performed By: #### A BOGEL, ABSGEL, ALB, CBC, ANEU, ADIFF, GFR, BMP #### [address] [address] Monocyte, Absolute 0.5 10 3/mcL Normal 0.2-1.0 [facility] ([place]) Comment on above: Performed By: #### A BOGEL, ABSGEL, ALB, CBC, ANEU, ADIFF, GFR, BMP #### [address] [address] Monocytes/100 WBC (Bld) 9.0 % Normal 1.7-13.0 [facility] ([place]) Comment on above: Performed By: #### A BOGEL, ABSGEL, ALB, CBC, ANEU, ADIFF, GFR, BMP #### [address] [address] Neutrophils/100 WBC (Bld) 54.8 % Normal 37.0-80.0 [facility] ([place]) Comment on above: Performed By: #### A BOGEL, ABSGEL, ALB, CBC, ANEU, ADIFF, GFR, BMP #### [address] [address] .GFRon 06-26-2023 GFR 67 ml/min/1.73sqm Normal [facility] ([place]) Comment on above: Result Comment: GFR Population mean for , Non- Americans Ages 20-29 = 116 mL/min/1.73 sq.m. Ages 30-39 = 107 mL/min/1.73 sq.m. Ages 40-49 = 99 mL/min/1.73 sq.m. Ages 50-59 = 93 mL/min/1.73 sq.m. Ages 60-69 = 85 mL/min/1.73 sq.m. Ages 70+ = 75 mL/min/1.73 sq.m. Chronic Kidney Disease: Less than 60 mL/min/1.73 square meters End Stage Renal Disease: Less than 15 mL/min/1.73 square meters Performed By: #### A BOGEL, ABSGEL, ALB, CBC, ANEU, ADIFF, GFR, BMP #### [address] [address] GFR Non- 55 ml/min/1.73sqm Normal [facility] ([place]) Comment on above: Result Comment: GFR Population mean for , Non- Americans Ages 20-29 = 116 mL/min/1.73 sq.m. Ages 30-39 = 107 mL/min/1.73 sq.m. Ages 40-49 = 99 mL/min/1.73 sq.m. Ages 50-59 = 93 mL/min/1.73 sq.m. Ages 60-69 = 85 mL/min/1.73 sq.m. Ages 70+ = 75 mL/min/1.73 sq.m. Chronic Kidney Disease: Less than 60 mL/min/1.73 square meters End Stage Renal Disease: Less than 15 mL/min/1.73 square meters Performed By: #### A BOGEL, ABSGEL, ALB, CBC, ANEU, ADIFF, GFR, BMP #### [address] [address] .NEUABSon 06-26-2023 Neutrophil, Absolute 3.1 10 3/mcL Normal 2.9-6.2 [facility] ([place]) Comment on above: Performed By: #### A BOGEL, ABSGEL, ALB, CBC, ANEU, ADIFF, GFR, BMP #### [address] [address] ABO/Rh (Gel)on 06-26-2023 ABO/Rh Interp Positive Invalid Interpretation Code [facility] ([place]) Comment on above: Performed By: #### A BOGEL, ABSGEL, ALB, CBC, ANEU, ADIFF, GFR, BMP #### [address] [address] ABS (Gel)on 06-26-2023 ABSC Interp (Gel) Negative Normal [facility] ([place]) Comment on above: Performed By: #### A BOGEL, ABSGEL, ALB, CBC, ANEU, ADIFF, GFR, BMP #### [address] [address] ALBon 06-26-2023 Albumin Level 4.2 G/dL Normal 3.4-4.8 [facility]) Comment on above: Performed By: #### A BOGEL, ABSGEL, ALB, CBC, ANEU, ADIFF, GFR, BMP #### [address] [address] BMPon 06-26-2023 BUN/Creatinine Ratio 14 ratio Normal 7-27 [facility] ([place]) Comment on above: Performed By: #### A BOGEL, ABSGEL, ALB, CBC, ANEU, ADIFF, GFR, BMP #### [address] [address] Calcium [Mass/Vol] 8.6 mg/dL Normal 8.4-10.2 [facility] ([place]) Comment on above: Performed By: #### A BOGEL, ABSGEL, ALB, CBC, ANEU, ADIFF, GFR, BMP #### [address] [address] Chloride [Moles/Vol] 104 mmol/L Normal 98-107 [facility]) Comment on above: Performed By: #### A BOGEL, ABSGEL, ALB, CBC, ANEU, ADIFF, GFR, BMP #### [address] [address] CO2 [Moles/Vol] 25 mmol/L Normal 23-31 [facility] ([place]) Comment on above: Performed By: #### A BOGEL, ABSGEL, ALB, CBC, ANEU, ADIFF, GFR, BMP #### [address] [address] Creatinine [Mass/Vol] 1.26 mg/dL Normal 0.70-1.30 [facility] ([place]) Comment on above: Performed By: #### A BOGEL, ABSGEL, ALB, CBC, ANEU, ADIFF, GFR, BMP #### [place] [address] Electrolyte Balance 13.0 mEq/L Normal 4.0-15.0 [facility] ([place]) Comment on above: Performed By: #### A BOGEL, ABSGEL, ALB, CBC, ANEU, ADIFF, GFR, BMP #### [place] [address] Glucose [Mass/Vol] 100 mg/dL Normal 83-110 [facility] ([place]) Comment on above: Performed By: #### A BOGEL, ABSGEL, ALB, CBC, ANEU, ADIFF, GFR, BMP #### [address] [address] Potassium [Moles/Vol] 4.2 mmol/L Normal 3.5-5.1 [facility] ([place]) Comment on above: Performed By: #### A BOGEL, ABSGEL, ALB, CBC, ANEU, ADIFF, GFR, BMP #### [address] [address] Sodium [Moles/Vol] 142 mmol/L Normal 136-145 [facility] ([place]) Comment on above: Performed By: #### A BOGEL, ABSGEL, ALB, CBC, ANEU, ADIFF, GFR, BMP #### [place] [address] Urea nitrogen [Mass/Vol] 18 mg/dL Normal 7-18 [facility] ([place]) Comment on above: Performed By: #### A BOGEL, ABSGEL, ALB, CBC, ANEU, ADIFF, GFR, BMP #### [place] [address] CBCon 06-26-2023 Erythrocyte distribution width (RBC) [Ratio] 13.1 % Normal 11.5-14.5 [facility] ([place]) Comment on above: Order Comment: Pre-A dmission Testing Performed By: #### A BOGEL, ABSGEL, ALB, CBC, ANEU, ADIFF, GFR, BMP #### [place] [address] Hematocrit (Bld) [Volume fraction] 41.1 % Low 42.0-52.0 [facility] ([place]) Comment on above: Order Comment: Pre-A dmission Testing Performed By: #### A BOGEL, ABSGEL, ALB, CBC, ANEU, ADIFF, GFR, BMP #### [place] [address] Hgb 14.3 G/dL Normal 14.0-18.0 [facility] ([place]) Comment on above: Order Comment: Pre-A dmission Testing Performed By: #### A BOGEL, ABSGEL, ALB, CBC, ANEU, ADIFF, GFR, BMP #### [place] [address] MCH (RBC) [Entitic mass] 32.0 pg High 27.0-31.2 [facility] ([place]) Comment on above: Order Comment: Pre-A dmission Testing Performed By: #### A BOGEL, ABSGEL, ALB, CBC, ANEU, ADIFF, GFR, BMP #### [place] [address] MCHC 34.9 G/dL Normal 31.8-35.4 [facility] ([place]) Comment on above: Order Comment: Pre-A dmission Testing Performed By: #### A BOGEL, ABSGEL, ALB, CBC, ANEU, ADIFF, GFR, BMP #### [place] [id number] MCV (RBC) [Entitic vol] 91.6 fL Normal 80.0-94.0 [facility] ([place]) Comment on above: Order Comment: Pre-A dmission Testing Performed By: #### A BOGEL, ABSGEL, ALB, CBC, ANEU, ADIFF, GFR, BMP #### [address] [address] Platelet 206 10 3/mcL Normal 130-400 [facility] ([place]) Comment on above: Order Comment: Pre-A dmission Testing Performed By: #### A BOGEL, ABSGEL, ALB, CBC, ANEU, ADIFF, GFR, BMP #### [address] [address] Platelet mean volume (Bld) [Entitic vol] 7.8 fL Normal 7.4-10.4 [facility] ([place]) Comment on above: Order Comment: Pre-A dmission Testing Performed By: #### A BOGEL, ABSGEL, ALB, CBC, ANEU, ADIFF, GFR, BMP #### [address] [address] RBC 4.48 10 6/mcL Normal 4.04-6.13 [facility] ([place]) Comment on above: Order Comment: Pre-A dmission Testing Performed By: #### A BOGEL, ABSGEL, ALB, CBC, ANEU, ADIFF, GFR, BMP #### [address] [address] WBC 5.7 10 3/mcL Normal 4.6-10.8 [facility] ([place]) Comment on above: Order Comment: Pre-A dmission Testing Performed By: #### A BOGEL, ABSGEL, ALB, CBC, ANEU, ADIFF, GFR, BMP #### [address] [address] [address] KNEE W/O CONTRAST LEFTon 06-26-2023 CT KNEE W/O CONTRAST LEFT ORIGINAL EXAMINATION: CT OF THE LEFT KNEE WITHOUT CONTRAST 06/26/2023 3:19 pm TECHNIQUE: CT of the left knee was performed without the administration of intravenous contrast. Multiplanar reformatted images are provided for review. Automated exposure control, iterative reconstruction, and/or weight based adjustment of the mA/kV was utilized to reduce the radiation dose to as low as reasonably achievable. COMPARISON: None. HISTORY ORDERING SYSTEM PROVIDED HISTORY: Reason for Exam: Unilateral primary osteoarthritis, left knee FINDINGS: Survey images left hip: Degenerative changes. No aggressive lesion. Vascular calcifications identified. No suspicious findings seen in the soft tissues. Knee: Tricompartmental joint space narrowing and spurring visualized. Findings are most prevalent in the medial tibiofemoral compartment. A moderate joint effusion seen. Patellar enthesophytes noted. Atherosclerosis. Ankle: No aggressive bony lesions. There are likely surgical changes in the distal fibula. Calcaneal enthesophytes. Chronic posttraumatic ossicles noted vascular calcifications. IMPRESSION: 1. Tricompartmental osteoarthritis of the left knee, most prevalent in the medial tibiofemoral compartment. 2. Moderate joint effusion. 3. Other incidental findings as above. Interpreted by: Jose Worthy MD Preliminary Report By: Jose Worthy MD Electronically signed By Jose Worthy MD Dictated Date: 06/26/2023 3:30:07 PM Prelim Date: 06/26/2023 3:35:03 PM Sign Date: 06/26/2023 3:35:03 PM Ordering Provider: MISTI Sigala [facility] ([place]) LABORATORYOrdered By: Dottie Lou on 06-26-2023 ABO and Rh group Nom (Bld) Blood group O Rh(D) positive Invalid Interpretation Code AO BB Auto SS Blood group antibody screen Ql Negative ABSC (06/26/23 2:45 PM) Normal AO BB Auto SS LABORATORYOrdered By: SYSTEM SYSTEM on 06-26-2023 Albumin BCP dye [Mass/Vol] 4.2 G/dL Normal 3.4 - 4.8 G/dL AO ADM SS Basophil, Absolute 0.0 103/mcL Normal 0.0 - 0.2 10^3/mcL AO Workflow SS Basophils/100 WBC (Bld) 0.8 % Normal 0.0 - 2.5 % AO Workflow SS Calcium [Mass/Vol] 8.6 mg/dL Normal 8.4 - 10. 2 mg/dL AO ADM SS Chloride [Moles/Vol] 104 mmol/L Normal 98 - 10 7 mmol/L AO ADM SS CO2 [Moles/Vol] 25 mmol/L Normal 23 - 31 mmol/L AO ADM SS Creatinine [Mass/Vol] 1.26 mg/dL Normal 0.70 - 1.30 mg/dL AO ADM SS Electrolyte Balance 13.0 mEq/L Normal 4.0 - 15 .0 mEq/L AO ADM SS Eosinophil, Absolute 0.4 103/mcL Normal 0.0 - 0 .4 10^3/mcL AO Workflow SS Eosinophils/100 WBC (Bld) 7.4 % High 0.0 - 7.0 % AO Workflow SS Erythrocyte distribution width (RBC) [Ratio] 13.1 % Normal 11.5 - 14.5 % AO Workflow SS GFR/1.73 sq M.predicted among blacks MDRD (S/P/Bld) [Vol rate/Area] 67 ml/min/1.73sqm Invalid Interpretation Code AO Chemistry S Comment on above: Interpretive Data: GFR Population mean for , Non- Americans Ages 20-29 = 116 mL/min/1.73 sq.m. Ages 30-39 = 107 mL/min/1.73 sq.m. Ages 40-49 = 99 mL/min/1.73 sq.m. Ages 50-59 = 93 mL/min/1.73 sq.m. Ages 60-69 = 85 mL/min/1.73 sq.m. Ages 70+ = 75 mL/min/1.73 sq.m. Chronic Kidney Disease: Less than 60 mL/min/1.73 square meters End Stage Renal Disease: Less than 15 mL/min/1.73 square meters GFR/1.73 sq M.predicted among non-blacks MDRD (S/P/Bld) [Vol rate/Area] 55 ml/min/1.73sqm Invalid Interpretation Code AO Chemistry S Comment on above: Interpretive Data: GFR Population mean for , Non- Americans Ages 20-29 = 116 mL/min/1.73 sq.m. Ages 30-39 = 107 mL/min/1.73 sq.m. Ages 40-49 = 99 mL/min/1.73 sq.m. Ages 50-59 = 93 mL/min/1.73 sq.m. Ages 60-69 = 85 mL/min/1.73 sq.m. Ages 70+ = 75 mL/min/1.73 sq.m. Chronic Kidney Disease: Less than 60 mL/min/1.73 square meters End Stage Renal Disease: Less than 15 mL/min/1.73 square meters Glucose [Mass/Vol] 100 mg/dL Normal 83 - 110 mg/dL AO ADM SS Hematocrit (Bld) [Volume fraction] 41.1 % Low 42.0 - 52.0 % AO Workflow SS Hemoglobin (Bld) [Mass/Vol] 14.3 G/dL Normal 14.0 - 18.0 G/dL AO Workflow SS Lymphocyte, Absolute 1.6 103/mcL Normal 0.8 - 3 .9 10^3/mcL AO Workflow SS Lymphocytes/100 WBC (Bld) 28.0 % Normal 10.0 - 50.0 % AO Workflow SS MCH (RBC) [Entitic mass] 32.0 pg High 27.0 - 31.2 pg AO Workflow SS MCHC 34.9 G/dL Normal 31.8 - 35.4 G/dL AO Workflow SS MCV (RBC) [Entitic vol] 91.6 fL Normal 80.0 - 94.0 fL AO Workflow SS Monocyte, Absolute 0.5 103/mcL Normal 0.2 - 1.0 10^3/mcL AO Workflow SS Monocytes/100 WBC (Bld) 9.0 % Normal 1.7 - 13.0 % AO Workflow SS Neutrophil, Absolute 3.1 103/mcL Normal 2.9 - 6 .2 10^3/mcL AO Workflow SS Neutrophils/100 WBC (Bld) 54.8 % Normal 37.0 - 80.0 % AO Workflow SS Platelet mean volume (Bld) [Entitic vol] 7.8 fL Normal 7.4 - 10.4 fL AO Workflow SS Platelets (Bld) [#/Vol] 206 103/mcL Normal 130 - 400 10^3/mcL AO Workflow SS Potassium [Moles/Vol] 4.2 mmol/L Normal 3.5 - 5.1 mmol/L AO ADM SS RBC (Bld) [#/Vol] 4.48 106/mcL Normal 4.04 - 6.1 3 10^6/mcL AO Workflow SS Sodium [Moles/Vol] 142 mmol/L Normal 136 - 145 mmol/L AO ADM SS Urea nitrogen [Mass/Vol] 18 mg/dL Normal 7 - 18 mg/dL AO ADM SS Urea nitrogen/Creatinine [Mass ratio] 14 ratio Normal 7 - 27 ratio AO ADM SS WBC (Bld) [#/Vol] 5.7 103/mcL Normal 4.6 - 10.8 10^3/mcL AO Workflow SS Absolute lymphocyte countOrd ered By: Fox Fischer on 12-24-2022 Lymphocytes Auto (Unsp spec) [#/Vol] 1.80 10*3/uL 0.83-4.51 [facility] Basophil percentageOrdered B y: Fox Fischer on 12-24-2022 Basophils/100 WBC (Bld) 0.6 % 0-1 [facility] Bilirubin [Mass/Vol] 0.50 mg/dL 0.20-1.00 [facility] Comment on above: For patients on eltr ombopag therapy, use of [place] TBIL is not recommended. Chloride [Moles/Vol] 104 mmol/L 98-107 [facility] Eosinophils/100 WBC (Bld) 6.1 % 0-5 [facility] Glucose [Mass/Vol] 97 mg/dL 74-106 [facility] Neutrophils (Bld) [#/Vol] 3.4 10*3/uL 2.0-7.7 [facility] Neutrophils/100 WBC (Bld) 53.7 % 47-70 [facility] Potassium [Moles/Vol] 3.9 mmol/L 3.5-5.1 [facility] Protein [Mass/Vol] 7.7 g/dL 6.4-8.2 [facility] Sodium [Moles/Vol] 138 mmol/L 136-145 [facility] WBC (Bld) [#/Vol] 6.4 10*3/uL 4.4-11.0 [facility] Blood erythrocytes count (nu mber/volume)Ordered By: Fox Fischer on 12-24-2022 RBC (Bld) [#/Vol] 4.72 10*6/uL 4.6-6.2 [facility] Blood hemoglobin measurement (mass/volume)Ordered By: Fox Fischer on 12-24-2022 Hemoglobin (Bld) [Mass/Vol] 15.3 g/dL 13.0-16.5 [facility] Blood lymphocytes/100 leukoc ytesOrdered By: Fox Fischer on 12-24-2022 Lymphocytes/100 WBC (Bld) 28.3 % 19-41 [facility] Blood monocytes/100 leukocyt esOrdered By: Fox Fischer on 12-24-2022 Monocytes/100 WBC (Bld) 10.5 % 0-10 [facility] Blood platelet mean volumeOr dered By: Fox Fischer on 12-24-2022 Platelet mean volume (Bld) [Entitic vol] 10.0 fL 6.2-12.0 [facility] Determination of erythrocyte mean corpuscular volume (MCV)Ordered By: Fox Fischer on 12-24-2022 MCV (RBC) [Entitic vol] 97.0 fL 80-94 [facility] Hematocrit Auto (Bld) [Volum e fraction]Ordered By: Fox Fischer on 12-24-2022 Hematocrit (Bld) [Volume fraction] 45.8 % 40-54 [facility] Laboratory - Chemistry and C hemistry - challengeOrdered By: [facility] ALP [Catalytic activity/Vol] 63 U/L 45-117 [facility] ALT [Catalytic activity/Vol] 55 U/L 16-61 [facility] CO2 [Moles/Vol] 28.0 mmol/L 21.0-32.0 [facility] Globulin (S) [Mass/Vol] 3.6 g/dL 2.2-4.2 [facility] Urea nitrogen/Creatinine [Mass ratio] 14.7 mg/mg 10-20 [facility] Laboratory - Hematology and Cell countsOrdered By: [facility]2022 Erythrocyte distribution width (RBC) [Entitic vol] 44.4 fL 35.1-43.9 [facility] Erythrocyte distribution width (RBC) [Ratio] 12.4 % 11.6-14.6 [facility] Immature granulocytes/100 WBC (Bld) 0.800 % 0.0-0.9 [facility] Comment on above: IG% - Immature Granu locytes (promyelocytes, myelocytes and metamyelocytes) > 1% indicates that a LEFT SHIFT is Present. MCH (RBC) [Entitic mass] 32.4 pg 27.0-32.0 [facility] Nucleated RBC/100 WBC (Bld) [Ratio] 0 % 0-5 [facility] MCHC Auto (RBC) [Mass/Vol]Or dered By: Fox Fischer on 12-24-2022 MCHC (RBC) [Mass/Vol] 33.4 g/dL 32-36 [facility] No Panel InformationOrdered By: Fox Fischer on 12-24-2022 Estimated GFR (MDRD) Amer 65 mL/min >60 [facility] Comment on above: GFR Calc Estimated GFR (MDRD) Non-Af Amer 54 mL/min >60 [facility] Comment on above: Non- GFR Calc Thyroid Stimulating Hormone (TSH) 2.61 uIU/mL 0.358-3.74 [facility] Vitamin D 25-Hydroxy 32.8 ng/mL [facility] Comment on above: Vitamin D 25(OH) Sta tus Range Deficiency <20 ng/mL (50nmol/L) Insufficiency 20 - 30 ng/mL (50 - 75 nmol/L) Sufficiency 30 - 100 ng/mL (75 - 250 nmol/L) Toxicity >100 ng/mL (>250 nmol/L) Platelets bldOrdered By: Fox Fischer on 12-24-2022 Platelets (Bld) [#/Vol] 212 10*3/uL 150-450 [facility] Serum or plasma albumin prem urement (mass/volume)Ordered By: Fox Fischer on 12-24-2022 Albumin [Mass/Vol] 4.1 g/dL 3.2-5.0 [facility] Serum or plasma albumin/glob ulin mass ratioOrdered By: Fox Fischer on 12-24-2022 Albumin/Globulin [Mass ratio] 1.1 {ratio} 0.9-2.4 [facility] Serum or plasma calcium prem urement (mass/volume)Ordered By: Fox Fischer on 12-24-2022 Calcium [Mass/Vol] 9.5 mg/dL 8.5-10.1 [facility] Serum or plasma creatinine m easurement (mass/volume)Ordered By: Fox Fischer on 12-24-2022 Creatinine [Mass/Vol] 1.36 mg/dL 0.70-1.30 [facility] Comment on above: The validity of the calculated GFR & GFRAA in patients over 70 years has not been determined. Clinical correlation is essential. Serum or plasma urea nitroge n measurement (mass/volume)Ordered By: Fox Fischer on 12-24-2022 Urea nitrogen [Mass/Vol] 20 mg/dL 7-18 [facility] Thin prep Papanicolaou smear with manual screeningOrdered By: Fox Fischer on 12-24-2022 Thin prep Papanicolaou smear with manual screening 34 U/L 15-37 [facility] Thin prep Papanicolaou smear with manual screening 6 5-15 [facility] Absolute lymphocyte countOrd ered By: Amita Brenner on 11-29-2022 Lymphocytes Auto (Unsp spec) [#/Vol] 1.55 10*3/uL 0.83-4.51 [facility] Bacteria identified Cx Nom ( Wound)Ordered By: Fox Fischer on 11-29-2022 Wound Culture Staphylococcus capitis [facility] Basophil percentageOrdered B y: Amita Brenner on 11-29-2022 Basophils/100 WBC (Bld) 1.0 % 0-1 [facility] Eosinophils/100 WBC (Bld) 6.5 % 0-5 [facility] Neutrophils (Bld) [#/Vol] 3.7 10*3/uL 2.0-7.7 [facility] Neutrophils/100 WBC (Bld) 57.9 % 47-70 [facility] WBC (Bld) [#/Vol] 6.3 10*3/uL 4.4-11.0 [facility] Basophil percentage 2.5 mg/dL 2.5-4.9 [facility] Chloride [Moles/Vol] 107 mmol/L 98-107 [facility] Glucose [Mass/Vol] 108 mg/dL 74-106 [facility] Comment on above: Fasting Glucose resu lt from 100 to 125 mg/dL suggests IMPAIRED HOMEOSTASIS per A.D.A. criteria. Potassium [Moles/Vol] 4.0 mmol/L 3.5-5.1 [facility] Sodium [Moles/Vol] 140 mmol/L 136-145 [facility] Blood erythrocytes count (nu mber/volume)Ordered By: Amita Brenner on 11-29-2022 RBC (Bld) [#/Vol] 4.59 10*6/uL 4.6-6.2 [facility] Blood hemoglobin measurement (mass/volume)Ordered By: Amita Brenner on 11-29-2022 Hemoglobin (Bld) [Mass/Vol] 14.8 g/dL 13.0-16.5 [facility] Blood lymphocytes/100 leukoc ytesOrdered By: Amita Brenner on 11-29-2022 Lymphocytes/100 WBC (Bld) 24.6 % 19-41 [facility] Blood monocytes/100 leukocyt esOrdered By: Amita Brenner on 11-29-2022 Monocytes/100 WBC (Bld) 9.0 % 0-10 [facility] Blood platelet mean volumeOr dered By: Amita Brenner on 11-29-2022 Platelet mean volume (Bld) [Entitic vol] 9.9 fL 6.2-12.0 [facility] Determination of erythrocyte mean corpuscular volume (MCV)Ordered By: Amita Brenner on 11-29-2022 MCV (RBC) [Entitic vol] 98.3 fL 80-94 [facility] Erythrocyte sedimentation ra teOrdered By: Amita Brenner on 11-29-2022 ESR (Bld) [Velocity] 5 mm/h 0-20 [facility] Gram stain for investigation of transfusion reactionOrdered By: Fox Fischer on 11-29-2022 Microscopic observation Gram stain Nom (Unsp spec) [facility] Hematocrit Auto (Bld) [Volum e fraction]Ordered By: Amita Brenner on 11-29-2022 Hematocrit (Bld) [Volume fraction] 45.1 % 40-54 [facility] Laboratory - Chemistry and C hemistry - challengeOrdered By: Amita Brenner on 11-29-2022 CO2 [Moles/Vol] 30.0 mmol/L 21.0-32.0 [facility] Urea nitrogen/Creatinine [Mass ratio] 12.6 mg/mg 10-20 [facility] - Hematology and Cell countsOrdered By: Amita Brenner on 11-29-2022 Erythrocyte distribution width (RBC) [Entitic vol] 46.6 fL 35.1-43.9 [facility] Erythrocyte distribution width (RBC) [Ratio] 13.1 % 11.6-14.6 [facility] Immature granulocytes/100 WBC (Bld) 1.000 % 0.0-0.9 [facility] Comment on above: IG% - Immature Granu locytes (promyelocytes, myelocytes and metamyelocytes) > 1% indicates that a LEFT SHIFT is Present. MCH (RBC) [Entitic mass] 32.2 pg 27.0-32.0 [facility] Nucleated RBC/100 [facility] [[facility]/Vol]Or dered By: Amita Brenner on 11-29-2022 MCHC (RBC) [Mass/Vol] 32.8 g/dL 32-36 [facility] No Panel InformationOrdered By: Amita Brenner on 11-29-2022 Methicillin-Resist S.aureus DNA PCR Negative Negative [facility] Estimated GFR (MDRD) Amer 70 mL/min >60 [facility] Comment on above: GFR Calc Estimated GFR (MDRD) Non-Af Amer 58 mL/min >60 [facility] Comment on above: Non- GFR Calc Platelets bldOrdered By: Raegan Brenner on 11-29-2022 Platelets (Bld) [#/Vol] 183 10*3/uL 150-450 [facility] Serum or plasma C reactive p rotein measurement (mass/volume)Ordered By: Amita Brenner on 11-29-2022 CRP [Mass/Vol] mg/L 0.0-3.0 [facility] Comment on above: C-Reactive Protein ( CRP) provides useful information for thediagnosis, therapy and monitoring of inflammatory processesand associated diseases. For the evaluation of Relative Riskfor Cardiovascular Disease, a High Sensitivity CRP (HSCRP)should be ordered. Serum or plasma albumin prem urement (mass/volume)Ordered By: Amita Brenner on 11-29-2022 Albumin [Mass/Vol] 4.1 g/dL 3.2-5.0 [facility] Serum or plasma calcium prem urement (mass/volume)Ordered By: Amita Brenner on 11-29-2022 Calcium [Mass/Vol] 9.0 mg/dL 8.5-10.1 [facility] Serum or plasma creatinine m easurement (mass/volume)Ordered By: Amita Brenner on 11-29-2022 Creatinine [Mass/Vol] 1.27 mg/dL 0.70-1.30 [facility] Comment on above: The validity of the calculated GFR & GFRAA in patients over 70 years has not been determined. Clinical correlation is essential. Serum or plasma urea nitroge n measurement (mass/volume)Ordered By: Amita Brenner on 11-29-2022 Urea nitrogen [Mass/Vol] 16 mg/dL 7-18 [facility] Staphylococcus aureus DNA de tection by probe and target amplification methodOrdered By: Amita Brenner on 11-29-2022 S. aureus DNA CONNER+probe Ql (Unsp spec) Negative Negative [facility] Laboratory - Chemistry and C hemistry - challengeOrdered By: Misti Shirley on 09-21-2022 Magnesium [Mass/Vol] 2.2 mg/dL 1.6-2.6 [facility] No Panel InformationOrdered By: Misti Shirley on 09-21-2022 Nasal Screen MRSA/MSSA [facility] Thyroid Stimulating Hormone (TSH) 2.21 uIU/mL 0.358-3.74 [facility] Absolute lymphocyte countOrd ered By: Fox Fischer on 09-03-2022 Lymphocytes Auto (Unsp spec) [#/Vol] 2.03 10*3/uL 0.83-4.51 [facility] Basophil percentageOrdered B y: Fox Fischer on 09-03-2022 Basophils/100 WBC (Bld) 0.6 % 0-1 [facility] Bilirubin [Mass/Vol] 0.40 mg/dL 0.20-1.00 [facility] Comment on above: For patients on eltr ombopag therapy, use of [place] TBIL is not recommended. Chloride [Moles/Vol] 107 mmol/L 98-107 [facility] Eosinophils/100 WBC (Bld) 7.2 % 0-5 [facility] Glucose [Mass/Vol] 110 mg/dL 74-106 [facility] Comment on above: Fasting Glucose resu lt from 100 to 125 mg/dL suggests IMPAIRED HOMEOSTASIS per A.D.A. criteria. Neutrophils (Bld) [#/Vol] 3.2 10*3/uL 2.0-7.7 [facility] Neutrophils/100 WBC (Bld) 49.5 % 47-70 [facility] Potassium [Moles/Vol] 4.0 mmol/L 3.5-5.1 [facility] Protein [Mass/Vol] 7.6 g/dL 6.4-8.2 [facility] Sodium [Moles/Vol] 139 mmol/L 136-145 [facility] WBC (Bld) [#/Vol] 6.4 10*3/uL 4.4-11.0 [facility] Blood erythrocytes count (nu mber/volume)Ordered By: Fox Fischer on 09-03-2022 RBC (Bld) [#/Vol] 4.64 10*6/uL 4.6-6.2 [facility] Blood hemoglobin measurement (mass/volume)Ordered By: Fox Fischer on 09-03-2022 Hemoglobin (Bld) [Mass/Vol] 14.8 g/dL 13.0-16.5 [facility] Blood lymphocytes/100 leukoc ytesOrdered By: Fox Fischer on 09-03-2022 Lymphocytes/100 WBC (Bld) 31.8 % 19-41 [facility] Blood monocytes/100 leukocyt esOrdered By: Fox Fischer on 09-03-2022 Monocytes/100 WBC (Bld) 10.3 % 0-10 [facility] Blood platelet mean volumeOr dered By: Fox Fischer on 09-03-2022 Platelet mean volume (Bld) [Entitic vol] 10.0 fL 6.2-12.0 [facility] Determination of erythrocyte mean corpuscular volume (MCV)Ordered By: Fox Fischer on 09-03-2022 MCV (RBC) [Entitic vol] 96.3 fL 80-94 [facility] Hematocrit Auto (Bld) [Volum e fraction]Ordered By: Fox Fischer on 09-03-2022 Hematocrit (Bld) [Volume fraction] 44.7 % 40-54 [facility] INR in Blood by Coagulation assayOrdered By: Fox Fischer on 09-03-2022 INR Coag (Bld) [Relative time] 1.2 {INR} [facility] Laboratory - Chemistry and C hemistry - challengeOrdered By: Fox Fischer on 09-03-2022 ALP [Catalytic activity/Vol] 59 U/L 45-117 [facility] ALT [Catalytic activity/Vol] 47 U/L 16-61 [facility] CO2 [Moles/Vol] 25.0 mmol/L 21.0-32.0 [facility] Globulin (S) [Mass/Vol] 3.8 g/dL 2.2-4.2 [facility] Urea nitrogen/Creatinine [Mass ratio] 15.7 mg/mg 10-20 [facility] - CoagulationOrde red By: Fox Fischer on 09-03-2022 PT Coag (PPP) [Time] 15.0 s 11.7-14.9 [facility] Laboratory - Hematology and Cell countsOrdered By: Fox Fischer on 09-03-2022 Erythrocyte distribution width (RBC) [Entitic vol] 42.6 fL 35.1-43.9 [facility] Erythrocyte distribution width (RBC) [Ratio] 12.1 % 11.6-14.6 [facility] Immature granulocytes/100 WBC (Bld) 0.600 % 0.0-0.9 [facility] Comment on above: IG% - Immature Granu locytes (promyelocytes, myelocytes and metamyelocytes) > 1% indicates that a LEFT SHIFT is Present. MCH (RBC) [Entitic mass] 31.9 pg 27.0-32.0 [facility] Nucleated RBC/100 WBC (Bld) [Ratio] 0 % 0-5 [facility] MCHC Auto (RBC) [Mass/Vol]Or dered By: Fox Fischer on 09-03-2022 MCHC (RBC) [Mass/Vol] 33.1 g/dL 32-36 [facility] No Panel InformationOrdered By: Fox Fischer on 09-03-2022 Estimated GFR (MDRD) Amer 63 mL/min >60 [facility] Comment on above: GFR Calc Estimated GFR (MDRD) Non-Af Amer 52 mL/min >60 [facility] Comment on above: Non- GFR Calc Platelets bldOrdered By: Fox Fischer on 09-03-2022 Platelets (Bld) [#/Vol] 174 10*3/uL 150-450 [facility] Serum or plasma albumin prem urement (mass/volume)Ordered By: Fox Fischer on 09-03-2022 Albumin [Mass/Vol] 3.8 g/dL 3.2-5.0 [facility] Serum or plasma albumin/glob ulin mass ratioOrdered By: Fox Fischer on 09-03-2022 Albumin/Globulin [Mass ratio] 1.0 {ratio} 0.9-2.4 [facility] Serum or plasma calcium prem urement (mass/volume)Ordered By: Fox Fischer on 09-03-2022 Calcium [Mass/Vol] 9.1 mg/dL 8.5-10.1 [facility] Serum or plasma creatinine m easurement (mass/volume)Ordered By: Fox Fischer on 09-03-2022 Creatinine [Mass/Vol] 1.40 mg/dL 0.70-1.30 [facility] Comment on above: The validity of the calculated GFR & GFRAA in patients over 70 years has not been determined. Clinical correlation is essential. Serum or plasma urea nitroge n measurement (mass/volume)Ordered By: Fox Fischer on 09-03-2022 Urea nitrogen [Mass/Vol] 22 mg/dL 7-18 [facility] Thin prep Papanicolaou smear with manual screeningOrdered By: Fox Fischer on 09-03-2022 Thin prep Papanicolaou smear with manual screening 35 U/L 15-37 [facility] Thin prep Papanicolaou smear with manual screening 7 5-15 [facility] No Panel InformationOrdered By: Dr. Vazquez on 06-28-2022 Prostate Specific Antigen Screen 2.00 ng/mL 0.00-4.00 [facility] Comment on above: This test was perfor med using the TPSA assay method for the[employer] chemistry system. Values obtained with differentassay methods cannot be used interchangably.When changing PSA assays in the course of monitoring apatient, additional sequential testing should be carriedout to confirm baseline values. Absolute lymphocyte countOrd ered By: Dr. Fischer on 06-25-2022 Lymphocytes Auto (Unsp spec) [#/Vol] 1.73 10*3/uL 0.83-4.51 [facility] Basophil percentageOrdered B y: Dr. Fischer on 06-25-2022 Basophils/100 WBC (Bld) 0.9 % 0-1 [facility] Bilirubin [Mass/Vol] 0.80 mg/dL 0.20-1.00 [facility] Comment on above: For patients on eltr ombopag therapy, use of [place] TBIL is not recommended. Chloride [Moles/Vol] 106 mmol/L 98-107 [facility] Eosinophils/100 WBC (Bld) 9.4 % 0-5 [facility] Glucose [Mass/Vol] 109 mg/dL 74-106 [facility] Comment on above: Fasting Glucose resu lt from 100 to 125 mg/dL suggests IMPAIRED HOMEOSTASIS per A.D.A. criteria. Neutrophils (Bld) [#/Vol] 2.5 10*3/uL 2.0-7.7 [facility] Neutrophils/100 WBC (Bld) 47.2 % 47-70 [facility] Potassium [Moles/Vol] 4.2 mmol/L 3.5-5.1 [facility] Protein [Mass/Vol] 7.3 g/dL 6.4-8.2 [facility] Sodium [Moles/Vol] 140 mmol/L 136-145 [facility] Testosterone [Mass/Vol] 650.52 ng/dL [facility] Comment on above: CENTRAL 90% REFERENC E RANGES MALE AGE <50 197.44 - 669.58 ng/dL MALE AGE > or = 50 187.72 - 684.19 ng/dL FEMALE AGE <50 8.38 - 35.01 ng/dL FEMALE AGE > or = 50 <7.00 - 35.92 ng/dL Effective as of 10/11/20 WBC (Bld) [#/Vol] 5.3 10*3/uL 4.4-11.0 [facility] Blood erythrocytes count (nu mber/volume)Ordered By: Dr. Fischer on 06-25-2022 RBC (Bld) [#/Vol] 4.73 10*6/uL 4.6-6.2 [facility] Blood hemoglobin measurement (mass/volume)Ordered By: Dr. Fischer on 06-25-2022 Hemoglobin (Bld) [Mass/Vol] 15.2 g/dL 13.0-16.5 [facility] Blood lymphocytes/100 leukoc ytesOrdered By: Dr. Fischer on 06-25-2022 Lymphocytes/100 WBC (Bld) 32.5 % 19-41 [facility] Blood monocytes/100 leukocyt esOrdered By: Dr. Fischer on 06-25-2022 Monocytes/100 WBC (Bld) 9.6 % 0-10 [facility] Blood platelet mean volumeOr dered By: Dr. Fischer on 06-25-2022 Platelet mean volume (Bld) [Entitic vol] 10.5 fL 6.2-12.0 [facility] Determination of erythrocyte mean corpuscular volume (MCV)Ordered By: Dr. Fischer on 06-25-2022 MCV (RBC) [Entitic vol] 96.4 fL 80-94 [facility] Hematocrit Auto (Bld) [Volum e fraction]Ordered By: Dr. Fischer on 06-25-2022 Hematocrit (Bld) [Volume fraction] 45.6 % 40-54 [facility] - Chemistry and C hemistry - challengeOrdered By: Dr. Fischer on 06-25-2022 ALP [Catalytic activity/Vol] 63 U/L 45-117 [facility] ALT [Catalytic activity/Vol] 57 U/L 16-61 [facility] CO2 [Moles/Vol] 28.0 mmol/L 21.0-32.0 [facility] Globulin (S) [Mass/Vol] 3.3 g/dL 2.2-4.2 [facility] Urea nitrogen/Creatinine [Mass ratio] 14.1 mg/mg 10-20 [facility] - Hematology and Cell countsOrdered By: Dr. Fischer on 06-25-2022 Erythrocyte distribution width (RBC) [Entitic vol] 42.6 fL 35.1-43.9 [facility] Erythrocyte distribution width (RBC) [Ratio] 12.1 % 11.6-14.6 [facility] Immature granulocytes/100 WBC (Bld) 0.400 % 0.0-0.9 [facility] Comment on above: IG% - Immature Granu locytes (promyelocytes, myelocytes and metamyelocytes) > 1% indicates that a LEFT SHIFT is Present. MCH (RBC) [Entitic mass] 32.1 pg 27.0-32.0 [facility] Nucleated RBC/100 WBC (Bld) [Ratio] 0 % 0-5 [facility] MCHC Auto (RBC) [Mass/Vol]Or dered By: Dr. Fischer on 06-25-2022 MCHC (RBC) [Mass/Vol] 33.3 g/dL 32-36 [facility] No Panel InformationOrdered By: Dr. Fischer on 06-25-2022 Estimated GFR (MDRD) Amer 66 mL/min >60 [facility] Comment on above: GFR Calc Estimated GFR (MDRD) Non-Af Amer 54 mL/min >60 [facility] Comment on above: Non- GFR Calc Thyroid Stimulating Hormone (TSH) 2.61 uIU/mL 0.358-3.74 [facility] Vitamin D 25-Hydroxy 32.7 ng/mL [facility] Comment on above: Vitamin D 25(OH) Sta tus Range Deficiency <20 ng/mL (50nmol/L) Insufficiency 20 - 30 ng/mL (50 - 75 nmol/L) Sufficiency 30 - 100 ng/mL (75 - 250 nmol/L) Toxicity >100 ng/mL (>250 nmol/L) Platelets bldOrdered By: Dr. Fischer on 06-25-2022 Platelets (Bld) [#/Vol] 194 10*3/uL 150-450 [facility] Serum or plasma albumin prem urement (mass/volume)Ordered By: Dr. Fischer on 06-25-2022 Albumin [Mass/Vol] 4.0 g/dL 3.2-5.0 [facility] Serum or plasma albumin/glob ulin mass ratioOrdered By: Dr. Fischer on 06-25-2022 Albumin/Globulin [Mass ratio] 1.2 {ratio} 0.9-2.4 [facility] Serum or plasma calcium prem urement (mass/volume)Ordered By: Dr. Fischer on 06-25-2022 Calcium [Mass/Vol] 8.9 mg/dL 8.5-10.1 [facility] Serum or plasma creatinine m easurement (mass/volume)Ordered By: Dr. Fischer on 06-25-2022 Creatinine [Mass/Vol] 1.35 mg/dL 0.70-1.30 [facility] Comment on above: The validity of the calculated GFR & GFRAA in patients over 70 years has not been determined. Clinical correlation is essential. Serum or plasma urea nitroge n measurement (mass/volume)Ordered By: Dr. Fischer on 06-25-2022 Urea nitrogen [Mass/Vol] 19 mg/dL 7-18 [facility] Thin prep Papanicolaou smear with manual screeningOrdered By: Dr. Fischer on 06-25-2022 Thin prep Papanicolaou smear with manual screening 42 U/L 15-37 [facility] Thin prep Papanicolaou smear with manual screening 6 5-15 [facility] Basophil percentageOrdered B y: Dr. Brenner on 06-07-2022 Basophil percentage 2.6 mg/dL 2.5-4.9 [facility] Chloride [Moles/Vol] 104 mmol/L 98-107 [facility] Glucose [Mass/Vol] 111 mg/dL 74-106 [facility] Comment on above: Fasting Glucose resu lt from 100 to 125 mg/dL suggests IMPAIRED HOMEOSTASIS per A.D.A. criteria. Potassium [Moles/Vol] 4.2 mmol/L 3.5-5.1 [facility] Sodium [Moles/Vol] 140 mmol/L 136-145 [facility] - Chemistry and C hemistry - challengeOrdered By: Dr. Brenner on 06-07-2022 CO2 [Moles/Vol] 27.0 mmol/L 21.0-32.0 [facility] Urea nitrogen/Creatinine [Mass ratio] 15.0 mg/mg 10-20 [facility] No Panel InformationOrdered By: Dr. Brenner on 06-07-2022 Estimated GFR (MDRD) Amer 67 mL/min >60 [facility] Comment on above: GFR Calc Estimated GFR (MDRD) Non-Af Amer 55 mL/min >60 [facility] Comment on above: Non- GFR Calc Serum or plasma albumin prem urement (mass/volume)Ordered By: Dr. Brenner on 06-07-2022 Albumin [Mass/Vol] 4.0 g/dL 3.2-5.0 [facility] Serum or plasma calcium prem urement (mass/volume)Ordered By: Dr. Brenner on 06-07-2022 Calcium [Mass/Vol] 9.1 mg/dL 8.5-10.1 [facility] Serum or plasma creatinine m easurement (mass/volume)Ordered By: Dr. Brenner on 06-07-2022 Creatinine [Mass/Vol] 1.33 mg/dL 0.70-1.30 [facility] Comment on above: The validity of the calculated GFR & GFRAA in patients over 70 years has not been determined. Clinical correlation is essential. Serum or plasma urea nitroge n measurement (mass/volume)Ordered By: Dr. Brenner on 06-07-2022 Urea nitrogen [Mass/Vol] 20 mg/dL 7-18 [facility] Absolute lymphocyte counton 12-21-2021 Lymphocytes Auto (Unsp spec) [#/Vol] 1.72 10*3/uL 0.83-4.51 [facility] Work Phone: Basophil percentageon 2021 Basophils/100 WBC (Bld) 0.9 % 0-1 [facility] Work Phone: Bilirubin [Mass/Vol] 0.70 mg/dL 0.20-1.00 [facility] Work Phone: Comment on above: For patients on eltr ombopag therapy, use of [place] TBIL is not recommended. Chloride [Moles/Vol] 107 mmol/L 98-107 [facility] Work Phone: Eosinophils/100 WBC (Bld) 10.4 % 0-5 [facility] [facility] Work Phone: Glucose [Mass/Vol] 121 mg/dL 74-106 [facility] Work Phone: Comment on above: Fasting Glucose resu lt from 100 to 125 mg/dL suggests IMPAIRED HOMEOSTASIS per A.D.A. criteria. Neutrophils (Bld) [#/Vol] 1.9 10*3/uL 2.0-7.7 [facility] Work Phone: Neutrophils/100 WBC (Bld) 41.3 % 47-70 [facility] Work Phone: Potassium [Moles/Vol] 3.9 mmol/L 3.5-5.1 [facility] Work Phone: Protein [Mass/Vol] 7.6 g/dL 6.4-8.2 [facility] Work Phone: Sodium [Moles/Vol] 141 mmol/L 136-145 [facility] Work Phone: Testosterone [Mass/Vol] 689.36 ng/dL [facility] Work Phone: Comment on above: CENTRAL 90% REFERENC E RANGES MALE AGE <50 197.44 - 669.58 ng/dL MALE AGE > or = 50 187.72 - 684.19 ng/dL FEMALE AGE <50 8.38 - 35.01 ng/dL FEMALE AGE > or = 50 <7.00 - 35.92 ng/dL Effective as of 10/11/20 WBC (Bld) [#/Vol] 4.7 10*3/uL 4.4-11.0 [facility] Work Phone: Blood erythrocytes count (nu mber/volume)on 12-21-2021 RBC (Bld) [#/Vol] 4.50 10*6/uL 4.6-6.2 [facility] Work Phone: Blood hemoglobin measurement (mass/volume)on 12-21-2021 Hemoglobin (Bld) [Mass/Vol] 14.6 g/dL 13.0-16.5 [facility] Work Phone: Blood lymphocytes/100 leukoc yteson 12-21-2021 Lymphocytes/100 WBC (Bld) 36.6 % 19-41 [facility] Work Phone: Blood monocytes/100 leukocyt eson 12-21-2021 Monocytes/100 WBC (Bld) 10.6 % 0-10 [facility] Work Phone: Blood platelet mean volumeon 12-21-2021 Platelet mean volume (Bld) [Entitic vol] 10.7 fL 6.2-12.0 [facility] Work Phone: Determination of erythrocyte mean corpuscular volume (MCV)on 12-21-2021 MCV (RBC) [Entitic vol] 97.6 fL 80-94 [facility] Work Phone: Hematocrit Auto (Bld) [Volum e fraction]on 12-21-2021 Hematocrit (Bld) [Volume fraction] 43.9 % 40-54 [facility] Work Phone: Laboratory - Chemistry and C hemistry - challengeon 12-21-2021 ALP [Catalytic activity/Vol] 55 U/L 45-117 [facility] Work Phone: [phone] ALT [Catalytic activity/Vol] 44 U/L 16-61 [facility] Work Phone: [phone] CO2 [Moles/Vol] 25.0 mmol/L 21.0-32.0 [facility] Work Phone: [phone] Globulin (S) [Mass/Vol] 3.6 g/dL 2.2-4.2 [facility] Work Phone: [phone] Urea nitrogen/Creatinine [Mass ratio] 10.7 mg/mg 10-20 [facility] Work Phone: [phone] Laboratory - Hematology and Cell countson 12-21-2021 Erythrocyte distribution width (RBC) [Entitic vol] 43.6 fL 35.1-43.9 [facility] Work Phone: [phone] Erythrocyte distribution width (RBC) [Ratio] 12.2 % 11.6-14.6 [facility] Work Phone: [phone] Immature granulocytes/100 WBC (Bld) 0.200 % 0.0-0.9 [facility] Work Phone: [phone] Comment on above: IG% - Immature Granu locytes (promyelocytes, myelocytes and metamyelocytes) > 1% indicates that a LEFT SHIFT is Present. MCH (RBC) [Entitic mass] 32.4 pg 27.0-32.0 [facility] Work Phone: [phone] Nucleated RBC/100 WBC (Bld) [Ratio] 0 % 0-5 [facility] Work Phone: [phone] MCHC Auto (RBC) [Mass/Vol]on 12-21-2021 MCHC (RBC) [Mass/Vol] 33.3 g/dL 32-36 [facility] Work Phone: [phone] No Panel Informationon 12-21 Estimated GFR (MDRD) Amer 59 mL/min >60 [facility] Work Phone: [phone] Comment on above: GFR Calc Estimated GFR (MDRD) Non-Af Amer 49 mL/min >60 [facility] Work Phone: Comment on above: Non- GFR Calc Thyroid Stimulating Hormone (TSH) 1.46 uIU/mL 0.358-3.74 [facility] Work Phone: Vitamin D 25-Hydroxy 33.0 ng/mL [facility] Work Phone: Comment on above: Vitamin D 25(OH) Sta tus Range Deficiency <20 ng/mL (50nmol/L) Insufficiency 20 - 30 ng/mL (50 - 75 nmol/L) Sufficiency 30 - 100 ng/mL (75 - 250 nmol/L) Toxicity >100 ng/mL (>250 nmol/L) Platelets bldon 12-21-2021 Platelets (Bld) [#/Vol] 197 10*3/uL 150-450 [facility] Work Phone: Serum or plasma albumin prem urement (mass/volume)on 12-21-2021 Albumin [Mass/Vol] 4.0 g/dL 3.2-5.0 [facility] Work Phone: Serum or plasma albumin/glob ulin mass ratioon 12-21-2021 Albumin/Globulin [Mass ratio] 1.1 {ratio} 0.9-2.4 [facility] Work Phone: Serum or plasma calcium prem urement (mass/volume)on 12-21-2021 Calcium [Mass/Vol] 9.2 mg/dL 8.5-10.1 [facility] Work Phone: [phone] Serum or plasma creatinine m easurement (mass/volume)on 12-21-2021 Creatinine [Mass/Vol] 1.49 mg/dL 0.70-1.30 [facility] Work Phone: Comment on above: The validity of the calculated GFR & GFRAA in patients over 70 years has not been determined. Clinical correlation is essential. Serum or plasma urea nitroge n measurement (mass/volume)on 12-21-2021 Urea nitrogen [Mass/Vol] 16 mg/dL 7-18 [facility] Work Phone: Thin prep Papanicolaou smear with manual screeningon 12-21-2021 Thin prep Papanicolaou smear with manual screening 34 U/L 15-37 [facility] Work Phone: Thin prep Papanicolaou smear with manual screening 9 5-15 [facility] Work Phone: Basophil percentageon 2021 Basophil percentage 2.5 mg/dL 2.5-4.9 [facility] Work Phone: Chloride [Moles/Vol] 107 mmol/L 98-107 [facility] Work Phone: Glucose [Mass/Vol] 97 mg/dL 74-106 [facility] Work Phone: Potassium [Moles/Vol] 3.9 mmol/L 3.5-5.1 [facility] Work Phone: Sodium [Moles/Vol] 141 mmol/L 136-145 [facility] Work Phone: Laboratory - Chemistry and C hemistry - challengeon 12-07-2021 CO2 [Moles/Vol] 26.0 mmol/L 21.0-32.0 [facility] Work Phone: Urea nitrogen/Creatinine [Mass ratio] 14.1 mg/mg 10-20 [facility] Work Phone: No Panel Informationon 12-07 Estimated GFR (MDRD) Amer 62 mL/min >60 [facility] Work Phone: Comment on above: GFR Calc Estimated GFR (MDRD) Non-Af Amer 51 mL/min >60 [facility] Work Phone: Comment on above: Non- GFR Calc Serum or plasma albumin prem urement (mass/volume)on 12-07-2021 Albumin [Mass/Vol] 3.9 g/dL 3.2-5.0 [facility] Work Phone: Serum or plasma calcium prem urement (mass/volume)on 12-07-2021 Calcium [Mass/Vol] 9.2 mg/dL 8.5-10.1 [facility] Work Phone: Serum or plasma creatinine m easurement (mass/volume)on 12-07-2021 Creatinine [Mass/Vol] 1.42 mg/dL 0.70-1.30 [facility] Work Phone: Comment on above: The validity of the calculated GFR & GFRAA in patients over 70 years has not been determined. Clinical correlation is essential. Serum or plasma urea nitroge n measurement (mass/volume)on 12-07-2021 Urea nitrogen [Mass/Vol] 20 mg/dL 7-18 [facility] Work Phone: Basophil percentageon 2021 Basophil percentage 2.8 mg/dL 2.5-4.9 [facility] Work Phone: Chloride [Moles/Vol] 109 mmol/L 98-107 [facility] Work Phone: Glucose [Mass/Vol] 100 mg/dL 74-106 [facility] Work Phone: Comment on above: Fasting Glucose resu lt from 100 to 125 mg/dL suggests IMPAIRED HOMEOSTASIS per A.D.A. criteria. Potassium [Moles/Vol] 3.9 mmol/L 3.5-5.1 [facility] Work Phone: Sodium [Moles/Vol] 141 mmol/L 136-145 [facility] Work Phone: Laboratory - Chemistry and C hemistry - challengeon 11-15-2021 CO2 [Moles/Vol] 25.0 mmol/L 21.0-32.0 [facility] Work Phone: Urea nitrogen/Creatinine [Mass ratio] 12.5 mg/mg 10-20 [facility] Work Phone: No Panel Informationon 11-15 Estimated GFR (MDRD) Amer 65 mL/min >60 [facility] Work Phone: Comment on above: GFR Calc Estimated GFR (MDRD) Non-Af Amer 54 mL/min >60 [facility] Work Phone: Comment on above: Non- GFR Calc Serum or plasma albumin prem urement (mass/volume)on 11-15-2021 Albumin [Mass/Vol] 3.8 g/dL 3.2-5.0 [facility] Work Phone: Serum or plasma calcium prem urement (mass/volume)on 11-15-2021 Calcium [Mass/Vol] 9.0 mg/dL 8.5-10.1 [facility] Work Phone: Serum or plasma creatinine m easurement (mass/volume)on 11-15-2021 Creatinine [Mass/Vol] 1.36 mg/dL 0.70-1.30 [facility] Work Phone: Comment on above: The validity of the calculated GFR & GFRAA in patients over 70 years has not been determined. Clinical correlation is essential. Serum or plasma urea nitroge n measurement (mass/volume)on 11-15-2021 Urea nitrogen [Mass/Vol] 17 mg/dL 7-18 [facility] Work Phone: Basophil percentageon 2021 Basophil percentage 3.0 mg/dL 2.5-4.9 [facility] Work Phone: Chloride [Moles/Vol] 109 mmol/L 98-107 [facility] Work Phone: Glucose [Mass/Vol] 105 mg/dL 74-106 [facility] Work Phone: Comment on above: Fasting Glucose resu lt from 100 to 125 mg/dL suggests IMPAIRED HOMEOSTASIS per A.D.A. criteria. Potassium [Moles/Vol] 4.3 mmol/L 3.5-5.1 [facility] Work Phone: Sodium [Moles/Vol] 140 mmol/L 136-145 [facility] Work Phone: Laboratory - Chemistry and C hemistry - challengeon 10-23-2021 CO2 [Moles/Vol] 25.0 mmol/L 21.0-32.0 [facility] Work Phone: Urea nitrogen/Creatinine [Mass ratio] 14.4 mg/mg 10-20 [facility] Work Phone: No Panel Informationon 10-23 Estimated GFR (MDRD) Amer 57 mL/min >60 [facility] Work Phone: Comment on above: GFR Calc Estimated GFR (MDRD) Non-Af Amer 47 mL/min >60 [facility] Work Phone: Comment on above: Non- GFR Calc Serum or plasma albumin prem urement (mass/volume)on 10-23-2021 Albumin [Mass/Vol] 3.9 g/dL 3.2-5.0 [facility] Work Phone: Serum or plasma calcium prem urement (mass/volume)on 10-23-2021 Calcium [Mass/Vol] 9.1 mg/dL 8.5-10.1 [facility] Work Phone: Serum or plasma creatinine m easurement (mass/volume)on 10-23-2021 Creatinine [Mass/Vol] 1.53 mg/dL 0.70-1.30 [facility] Work Phone: Comment on above: The validity of the calculated GFR & GFRAA in patients over 70 years has not been determined. Clinical correlation is essential. Serum or plasma urea nitroge n measurement (mass/volume)on 10-23-2021 Urea nitrogen [Mass/Vol] 22 mg/dL -18 [facility] Work Phone: CNOVon 07-13-2017 CNOV Office Visit ([facility]) Britt LEE ([id number]) 1945 [facility] Time Provider Department07/13/17 1:00 PM RENETTA DORMANGENESIS) [facility] During your visit today, we recorded the following information about you: Temperature Pulse Respiration Blood pressure 97.4 degrees 81/minute 16/minute 128/80 Weight 89.1 kgRenetta Dorman APRN.CNP 07/13/2017 1:45 PM SignedSubjectiveThe history is provided by the patient. No language therapist was used.HPI Carlee Lee is a 71 year old male who presents today for CC of nasalcongestion and sinus pressure. This started today. He denies any fever,chills or body aches, no post nasal drainage or sore throat. Symptoms areworsened by lying down. He has tried no treatment and 2 aspirin Risk factorsnone known PMH not significantBP 128/80 Pulse 81 Temp 36.3 ?C (97.4 ?F) (Tympanic) Resp 16 Wt89.1 kg (196 lb 6.4 oz)ALLERGIESAllergen Reactions- Iv Contrast [Contra* Itching- Onion RashThere is no problem list on file for this patient.No family history on file.Social History Marital status: Single Spouse name: Years of education: Number of children:Social History Main Topics Smoking status: Former Smoker Packs/day: 0.00 Years: 45.00 Smokeless tobacco: Former User Quit date: 05/20/2008Review of SystemsConstitutional: Negative. Negative for chills, fever and malaise/fatigue.HENT: Positive for congestion and sinus pain. Negative for ear pain and sorethroat.Respiratory: Negative for cough, sputum production, shortness of breath andwheezing.Cardiovascul ar: Negative for chest pain.Musculoskeletal: Negative for myalgias.Skin: Negative for rash.Neurological: Positive for headaches.ObjectivePhysi miles ExamConstitutional: He is well-developed, well-nourished, and in no distress.HENT:Head: Normocephalic and atraumatic.Right Ear: Tympanic membrane, external ear and ear canal normal. Tympanicmembrane is not injected, not erythematous, not retracted and not bulging. Nomiddle ear effusion.Left Ear: Tympanic membrane, external ear and ear canal normal. Tympanicmembrane is not injected, not erythematous, not retracted and not bulging. Nomiddle ear effusion.Nose: Mucosal edema and rhinorrhea present. Right sinus exhibits maxillarysinus tenderness and frontal sinus tenderness. Left sinus exhibits maxillarysinus tenderness and frontal sinus tenderness.Mouth/Throat: Uvula is midline and mucous membranes are normal. Posteriororopharyngeal erythema present. No oropharyngeal exudate, posteriororopharyngeal edema or tonsillar abscesses.Eyes: Conjunctivae and EOM are normal. Pupils are equal, round, and reactive tolight.Neck: Normal range of motion.Cardiovascular: Normal rate, regular rhythm and normal heart sounds.Pulmonary/Chest: Effort normal and breath sounds normal. No respiratorydistress. He has no wheezes. He has no rales.Lymphadenopathy: Head (right side): No submental, no submandibular, no tonsillar, nopreauricular and no posterior auricular adenopathy present. Head (left side): No submental, no submandibular, no tonsillar, nopreauricular and no posterior auricular adenopathy present. He has no cervical adenopathy. Right cervical: No posterior cervical adenopathy present. Left cervical: No posterior cervical adenopathy present. Right: No supraclavicular adenopathy present. Left: No supraclavicular adenopathy present.Skin: Skin is warm and dry.Psychiatric: Affect normal.Nursing note and vitals reviewed. ASSESSMENT/PLAN:1. URI, acute - ICD9: 465.9, ICD10: J06.9- Discussed viral etiology and rationale for treatment.You need to rest as much as possible.Motrin or Tylenol as needed for fever or pain.Salt water gargles, chloraseptic spray or lozenges as needed for sore throat.Nasal saline irrigation at least 2 x day.Drink at least 8 glasses of fluids per day that aren't caffeinated.Eat a nutritious diet.Use a humidifier in your room at night.Tylenol (generic acetaminophen) 500 mg-2 tabs every 8 hrs. as needed for feverand achesIbuprofen 600 mg (3-200mg tablets) every 6 hours-Sudafed (generic is fine), behind the counter, 2x30 mg tabs twice daily asneeded for congestion - limited- Afrin but use only for 3 days at a timeZyrtec 10 mg By mouth daily at bedtimeFlonase or Nasonex 1 spray each nostril two times a day.-Mucinex (generic is fine) 1200 mg twice daily to help with cough and to thinout mucus* Seek medical care immediately, call 911, go to ER if you have chest pain,difficulty breathing, shortness of breath, inability to swallow.Diagnosis and treatment plan were discussed and questions were answered to thepatient's satisfaction. Pt acknowledged understanding of concepts and follow upplan.Specific signs and symptoms that would indicate the need for higher level ofcare were discussed in detail warranting prompt ER evaluation.Arie Renae APRN.CNP 07/13/2017 1:37 PM AddendumASSESSMENT/PLAN: 1. URI, acute - ICD9: 465.9, ICD10: J06.9- Discussed viral etiology and rationale for treatment.You need to rest as much as possible.Motrin or Tylenol as needed for fever or pain.Salt water gargles, chloraseptic spray or lozenges as needed for sore throat.Nasal saline irrigation at least 2 x day.Drink at least 8 glasses of fluids per day that aren't caffeinated.Eat a nutritious diet.Use a humidifier in your room at night.Tylenol (generic acetaminophen) 500 mg-2 tabs every 8 hrs. as needed for feverand achesIbuprofen 600 mg (3-200mg tablets) every 6 hours-Sudafed (generic is fine), behind the counter, 2x30 mg tabs twice daily asneeded for congestion - limited- Afrin but use only for 3 days at a timeZyrtec 10 mg By mouth daily at bedtimeFlonase or Nasonex 1 spray each nostril two times a day.-Mucinex (generic is fine) 1200 mg twice daily to help with cough and to thinout mucus* Seek medical care immediately, call 911, go to ER if you have chest pain,difficulty breathing, shortness of breath, inability to swallow.Referring Provider: SELF [[id number]]Allergies As of Date: 07/13/2017 Noted Allergy ReactionIV CONTRAST (CONTRAST DYE) 06/16/2011 9 - ItchingONION 06/16/2011 2 - RashDate Reviewed: 07/13/2017Reviewed by: Renetta Dorman - Fully AssessedReason for Visit: sinus pain and pressure [Other] Cmt: woke up symptoms this amPrimary Visit Diagnosis:URI, acute [J06.9]Prescriptions as of 07/13/2017 Sig: LISINOPRIL ORAL Take by mouth. MULTI-VITAMIN ORAL Take by mouth. OMEPRAZOLE 20 MG CAPSULE,MARSHALL* Take 20 mg by mouth as needed.Problem List As Of Date: 07/13/2017(None) Other instructions from your clinician: ASSESSMENT/PLAN: 1. URI, acute - ICD9: 465.9, ICD10: J06.9 - Discussed viral etiology and rationale for treatment. You need to rest as much as possible. Motrin or Tylenol as needed for fever or pain. Salt water gargles, chloraseptic spray or lozenges as needed for sore throat. Nasal saline irrigation at least 2 x day. Drink at least 8 glasses of fluids per day that aren't caffeinated. Eat a nutritious diet. Use a humidifier in your room at night. Tylenol (generic acetaminophen) 500 mg-2 tabs every 8 hrs. as needed for fever and aches Ibuprofen 600 mg (3-200mg tablets) every 6 hours -Sudafed (generic is fine), behind the counter, 2x30 mg tabs twice daily as needed for congestion - limited - Afrin but use only for 3 days at a time Zyrtec 10 mg By mouth daily at bedtime Flonase or Nasonex 1 spray each nostril two times a day. -Mucinex (generic is fine) 1200 mg twice daily to help with cough and to thin out mucus * Seek medical care immediately, call 911, go to ER if you have chest pain, difficulty breathing, shortness of breath, inability to swallow. Status:Closed by RENETTA DORMAN CNP on 07/13/17 Normal [facility] PROGRESSon 07-13-2017 PROGRESS HNO ID: [id number]: Renetta Shahervice: (none)Author Type: Nurse PractitionerType: Progress NotesFiled: 07/13/2017 1:45 PMNote Text:SubjectiveThe history is provided by the patient. No language therapist was used.HPI Carlee Lee is a 71 year old male who presents today for CC of nasalcongestion and sinus pressure. This started today. He denies any fever,chills or body aches, no post nasal drainage or sore throat. Symptoms areworsened by lying down. He has tried no treatment and 2 aspirin Riskfactors none known PMH not significantBP 128/80 Pulse 81 Temp 36.3 ?C (97.4 ?F) (Tympanic) Resp 16 Wt 89.1 kg (196 lb 6.4 oz)ALLERGIESAllergen Reactions- Iv Contrast [Contra* Itching- Onion RashThere is no problem list on file for this patient.No family history on file.Social History Marital status: Single Spouse name: Years of education: Number of children:Social History Main Topics Smoking status: Former Smoker Packs/day: 0.00 Years: 45.00 Smokeless tobacco: Former User Quit date: 05/20/2008Review of SystemsConstitutional: Negative. Negative for chills, fever and malaise/fatigue.HENT: Positive for congestion and sinus pain. Negative for ear pain andsore throat.Respiratory: Negative for cough, sputum production, shortness of breathand wheezing.Cardiovascular: Negative for chest pain.Musculoskeletal: Negative for myalgias.Skin: Negative for rash.Neurological: Positive for headaches.ObjectivePhysi miles ExamConstitutional: He is well-developed, well-nourished, and in no distress.HENT:Head: Normocephalic and atraumatic.Right Ear: Tympanic membrane, external ear and ear canal normal. Tympanicmembrane is not injected, not erythematous, not retracted and not bulging.No middle ear effusion.Left Ear: Tympanic membrane, external ear and ear canal normal. Tympanicmembrane is not injected, not erythematous, not retracted and not bulging. No middle ear effusion.Nose: Mucosal edema and rhinorrhea present. Right sinus exhibits maxillarysinus tenderness and frontal sinus tenderness. Left sinus exhibitsmaxillary sinus tenderness and frontal sinus tenderness.Mouth/Throat: Uvula is midline and mucous membranes are normal. Posteriororopharyngeal erythema present. No oropharyngeal exudate, posteriororopharyngeal edema or tonsillar abscesses.Eyes: Conjunctivae and EOM are normal. Pupils are equal, round, andreactive to light.Neck: Normal range of motion.Cardiovascular: Normal rate, regular rhythm and normal heart sounds.Pulmonary/Chest: Effort normal and breath sounds normal. No respiratorydistress. He has no wheezes. He has no rales.Lymphadenopathy: Head (right side): No submental, no submandibular, no tonsillar, nopreauricular and no posterior auricular adenopathy present. Head (left side): No submental, no submandibular, no tonsillar, nopreauricular and no posterior auricular adenopathy present. He has no cervical adenopathy. Right cervical: No posterior cervical adenopathy present. Left cervical: No posterior cervical adenopathy present. Right: No supraclavicular adenopathy present. Left: No supraclavicular adenopathy present.Skin: Skin is warm and dry.Psychiatric: Affect normal.Nursing note and vitals reviewed. ASSESSMENT/PLAN:1. URI, acute - ICD9: 465.9, ICD10: J06.9- Discussed viral etiology and rationale for treatment.You need to rest as much as possible.Motrin or Tylenol as needed for fever or pain.Salt water gargles, chloraseptic spray or lozenges as needed for sorethroat.Nasal saline irrigation at least 2 x day.Drink at least 8 glasses of fluids per day that aren't caffeinated.Eat a nutritious diet.Use a humidifier in your room at night.Tylenol (generic acetaminophen) 500 mg-2 tabs every 8 hrs. as needed forfever and achesIbuprofen 600 mg (3-200mg tablets) every 6 hours-Sudafed (generic is fine), behind the counter, 2x30 mg tabs twice dailyas needed for congestion - limited- Afrin but use only for 3 days at a timeZyrtec 10 mg By mouth daily at bedtimeFlonase or Nasonex 1 spray each nostril two times a day.-Mucinex (generic is fine) 1200 mg twice daily to help with cough and tothin out mucus* Seek medical care immediately, call 911, go to ER if you have chestpain, difficulty breathing, shortness of breath, inability to swallow.Diagnosis and treatment plan were discussed and questions were answered tothe patient's satisfaction. Pt acknowledged understanding of concepts andfollow up plan.Specific signs and symptoms that would indicate the need for higher levelof care were discussed in detail warranting prompt ER evaluation.Renetta Dorman, [employer] PAINTER.[employer]AT[employer] Normal [facility] No Panel Information Influenza Types A,B Direct FA ([facility]) [facility] Work Phone: Vital Signs Date Time Vital Sign Value Performing Clinician Facility 08-13-2024 08:26-0400 Body height 185.[address] Fox Fischer MD Work Phone: [facility] 08-13-2024 08:26-0400 Body mass index (BMI) [Ratio] 26.7 kg/m2 Dr. Fox Fischer MD Work Phone: [facility] 08-13-2024 08:26-0400 Body weight 92.[address] Fox Fischer MD Work Phone: [facility] 08-13-2024 08:26-0400 Diastolic blood pressure 64 mm[Hg] Dr. Fox Fischer MD Work Phone: [facility] 08-13-2024 08:26-0400 Heart rate 57 /min Dr. Fox Fischer MD Work Phone: [facility] 08-13-2024 08:26-0400 Respiratory rate 16 /min Dr. Fox Fischer MD Work Phone: [facility] 08-13-2024 08:26-0400 Systolic blood pressure 122 mm[Hg] Dr. Fox Fischer MD Work Phone: [facility] 05-08-2024 07:55-0500 Body height 185.[address] Fox Fischer MD Work Phone: [facility] 05-08-2024 07:55-0500 Body mass index (BMI) [Ratio] 27 kg/m2 Dr. Fox Fischer MD Work Phone: [facility] 05-08-2024 07:55-0500 Body temperature 97.2 [degF] Dr. Fox Fischer MD Work Phone: [facility] 05-08-2024 07:55-0500 Body weight 92.[address] Fox Fischer MD Work Phone: [facility] 05-08-2024 07:55-0500 Diastolic blood pressure 82 mm[Hg] Dr. Fox Fischer MD Work Phone: [facility] 05-08-2024 07:55-0500 Heart rate 66 /min Dr. Fox Fischer MD Work Phone: [facility] 05-08-2024 07:55-0500 Respiratory rate 18 /min Dr. Fox Fischer MD Work Phone: [facility] 05-08-2024 07:55-0500 SaO2% (BldA) [Mass fraction] 97 % Dr. Fox Fischer MD Work Phone: [facility] [facility] 07:55-0500 Systolic blood pressure 161 mm[Hg] Dr. Fox Fischer MD Work Phone: [facility] 07-16-2023 13:33-0400 Diastolic Blood Pressure Non-Invasive 77 mm[Hg] DR MISTI SHIRLEY MD [facility] 07-16-2023 13:33-0400 Heart rate 61 /min DR MISTI SHIRLEY MD [facility] 07-16-2023 13:33-0400 Respiratory rate 20 /min DR MISTI SHIRLEY MD [facility] 07-16-2023 13:33-0400 Systolic Blood Pressure Non-Invasive 153 mm[Hg] DR MISTI SHIRLEY MD [facility] 07-16-2023 12:13-0400 Diastolic Blood Pressure Non-Invasive 88 mm[Hg] DR MISTI SHIRLEY MD [facility] 07-16-2023 12:13-0400 Heart rate 66 /min DR MISTI SHIRLEY MD [facility] 07-16-2023 12:13-0400 Respiratory rate 16 /min DR MISTI SHIRLEY MD [facility] 07-16-2023 12:13-0400 Systolic Blood Pressure Non-Invasive 119 mm[Hg] DR MISTI SHIRLEY MD [facility] 07-16-2023 10:33-0400 Diastolic Blood Pressure Non-Invasive 64 mm[Hg] DR MISTI SHIRLEY MD [facility] 07-16-2023 10:33-0400 Heart rate 65 /min DR MISTI SHIRLEY MD [facility] 07-16-2023 10:33-0400 Respiratory rate 18 /min DR MISTI SHIRLEY MD [facility] 07-16-2023 10:33-0400 Systolic Blood Pressure Non-Invasive 153 mm[Hg] DR MISTI SHIRLEY MD [facility] 07-16-2023 08:59-0400 Body temperature 96.98 [degF] DR MISTI SHIRLEY MD [facility] 07-16-2023 08:45-0400 Body temperature 96.8 [degF] DR MISTI SHIRLEY MD [facility] 07-16-2023 08:45-0400 Respiratory Rate - Anes 12 br/min DR MISTI SHIRLEY MD [facility] 07-16-2023 08:40-0400 Respiratory Rate - Anes 12 br/min DR MISTI SHIRLEY MD [facility] 07-16-2023 08:35-0400 Respiratory Rate - Anes 11 br/min DR MISTI SHIRLEY MD [facility] 07-16-2023 08:30-0400 Body temperature 96.8 [degF] DR MISTI SHIRLEY MD [facility] 07-16-2023 08:15-0400 Body temperature 96.8 [degF] DR MISTI SHIRLEY MD [facility] 07-16-2023 06:07-0400 Body weight 26.75 kg/m2 DR MISTI SHIRLEY MD [facility] 07-16-2023 05:43-0400 Body height 182.[address] MISTI SHIRLEY MD [facility] 07-16-2023 05:43-0400 Body temperature 97.52 [degF] DR MISTI SHIRLEY MD [facility] 07-16-2023 05:43-0400 Body weight 89.[address] MISTI SHIRLEY MD [facility] 07-16-2023 05:43-0400 Heart rate 59 /min DR MISTI SHIRLEY MD [facility] 07-04-2023 14:31-0400 Body height 185.[address] Fox Fischer Work Phone: [facility] 07-04-2023 14:31-0400 Body mass index (BMI) [Ratio] 26.4 kg/m2 Dr. Fox Fischer Work Phone: [facility] 07-04-2023 14:31-0400 Body weight 90.[address] Fox Fischer Work Phone: [facility] 07-04-2023 14:31-0400 Diastolic blood pressure 71 mm[Hg] Dr. Fox Fischer Work Phone: [facility] 07-04-2023 14:31-0400 Heart rate 63 /min Dr. Fox Fischer Work Phone: [facility] 07-04-2023 14:31-0400 Respiratory rate 18 /min Dr. Fox Fischer Work Phone: [facility] 07-04-2023 14:31-0400 SaO2% (BldA) [Mass fraction] 99 % Dr. Fox Fischer Work Phone: [facility] 07-04-2023 14:31-0400 Systolic blood pressure 135 mm[Hg] Dr. Fox Ficsher Work Phone: [facility] 06-26-2023 14:15-0400 Blood Pressure Cuff Size DR MISTI SHIRLEY MD [facility] 06-26-2023 14:15-[address] MISTI SHIRLEY MD [facility] 06-26-2023 14:15-[address] MISTI Rosa [facility] 06-26-2023 14:15-0400 Body height 182.[address] MISTI SHIRLEY MD [facility] 06-26-2023 14:15-0400 Body weight 89.[address] MISTI SHIRLEY MD [facility] 06-26-2023 14:15-0400 Body weight 26.75 kg/m2 DR MISTI SHIRLEY MD [facility] 06-26-2023 14:15-0400 Diastolic Blood Pressure Non-Invasive 83 mm[Hg] DR MISTI SHIRLEY MD [facility] 06-26-2023 14:15-0400 Heart rate 60 /min DR MISTI SHIRLEY MD [facility] 06-26-2023 14:15-0400 Systolic Blood Pressure Non-Invasive 159 mm[Hg] DR MISTI SHIRLEY MD [facility] 04-23-2022 08:56-0500 Body height 185.[address] Fox Fischer Work Phone: [facility] 04-23-2022 08:56-0500 Body mass index (BMI) [Ratio] 27.4 kg/m2 Dr. Fox Fischer Work Phone: [facility] 04-23-2022 08:56-0500 Body weight 94.[address] Fox Fischer Work Phone: [facility] 04-23-2022 08:56-0500 Diastolic blood pressure 69 mm[Hg] Dr. Fox Fischer Work Phone: [facility] 04-23-2022 08:56-0500 Heart rate 70 /min Dr. Fox Fischer Work Phone: [facility] 04-23-2022 08:56-0500 Respiratory rate 18 /min Dr. Fox Fischer Work Phone: [facility] 04-23-2022 08:56-0500 SaO2% (BldA) [Mass fraction] 100 % Dr. Fox Fischer Work Phone: [facility] 04-23-2022 08:56-0500 Systolic blood pressure 163 mm[Hg] Dr. Fox Fischer Work Phone: [facility] 02-26-2022 08:18-0500 Body mass index (BMI) [Ratio] 27.6 kg/m2 Dr. Fox Fischer Work Phone: [facility] 02-26-2022 08:18-0500 Body temperature 97.8 [degF] Dr. Fox Fischer Work Phone: [facility] 02-26-2022 08:18-0500 Body weight 94.[address] Fox Fischer Work Phone: [facility] 02-26-2022 08:18-0500 Diastolic blood pressure 83 mm[Hg] Dr. Fox Fischer Work Phone: [facility] 02-26-2022 08:18-0500 Heart rate 59 /min Dr. Fox Fischer Work Phone: [facility] 02-26-2022 08:18-0500 Respiratory rate 18 /min Dr. Fox Fischer Work Phone: [facility] 02-26-2022 08:18-0500 SaO2% (BldA) [Mass fraction] 99 % Dr. Fox Fischer Work Phone: [facility] 02-26-2022 08:18-0500 Systolic blood pressure 162 mm[Hg] Dr. Fox Fischer Work Phone: [facility] 10-16-2021 09:07-0400 Body height 185.[address] Fox Fischer Work Phone: [facility] Work Phone: 10-16-2021 09:07-0400 Body mass index (BMI) [Ratio] 26.6 kg/m2 Dr. Fox Fischer Work Phone: [facility] Work Phone: 10-16-2021 09:07-0400 Body weight 91.[address] Fox Fischer Work Phone: [facility] Work Phone: 10-16-2021 09:07-0400 Diastolic blood pressure 74 mm[Hg] Dr. Fox Fischer Work Phone: [facility] Work Phone: 10-16-2021 09:07-0400 Heart rate 56 /min Dr. Fox Fischer Work Phone: [facility] Work Phone: 10-16-2021 09:07-0400 Respiratory rate 16 /min Dr. Fox Fischer Work Phone: [facility] Work Phone: 10-16-2021 09:07-0400 Systolic blood pressure 140 mm[Hg] Dr. 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 Fox Fischer MD Work Phone: [facility] Work Phone: Start: 07-02-2024 End: 07-02-[address] Fox Fischer MD Work Phone: [facility] Work Phone: Start: 07-02-2024 End: 07-02-[address] 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 -[facility] Work Phone: Start: 05-08-2024 End: 05-08-2024 ambulatory Pam Patel NP Facility:[facility] Start: 02-03-2024 End: 02-03-2024 ambulatory Brandon Fulton Facility:[facility] Start: 01-02-2024 End: 01-02-2024 ambulatory Fox Roddy Fischer Facility:[facility] Start: 10-29-2023 End: 10-29-2023 ambulatory Amita Brenner Facility:[facility] Start: 08-20-2023 ambulatory Ronel Morales Facility: [facility] Start: 08-20-2023 End: 08-20-2023 ambulatory Ciaran Vazquez Facility:[facility] Start: 07-16-2023 End: 07-16-2023 ambulatory MISTI SHIRLEY Facility:[facility] Start: 07-16-2023 End: 07-16-[address] MISTI SHIRLEY MD [facility] Start: 07-12-2023 End: 07-12-[address] Fox Fischer Work Phone: [facility] Work Phone: Start: 07-12-2023 End: 07-12-[address] Fox Fischer Work Phone: [facility] Scan, [facility] Work Phone: Start: 07-04-2023 End: 07-04-[address] Fox Fischer Work Phone: [facility] Work Phone: Start: 07-02-2023 End: 07-02-[address] Fox Fischer Work Phone: [facility] Work Phone: Start: 07-02-2023 End: 07-02-[address] Fox Fischer Work Phone: [facility]-Laboratory, [facility] Office [address] [place] [address] Start: 06-26-2023 End: 06-27-2023 ambulatory MISTI SHIRLEY Facility:[facility] Start: 06-26-2023 End: 06-27-2023 ambulatory MISTI SHIRLEY Facility:[facility] Start: 06-26-2023 End: 06-26-[address] MISTI SHIRLEY MD [facility] Start: 06-26-2023 End: 06-26-[address] MISTI SHIRLEY MD [facility] Start: 12-24-2022 End: 12-24-2022 ambulatory [facility] Work Phone: Start: 12-24-2022 End: 12-24-2022 Patient encounter procedure [facility]-Laboratory Work Phone: Start: 12-05-2022 End: 12-05-2022 ambulatory [facility] Work Phone: Start: 12-05-2022 End: 12-05-2022 Patient encounter procedure [facility]-Ultrasound, [facility] Work Phone: Start: 11-29-2022 End: 11-29-2022 ambulatory [facility] Work Phone: Start: 11-29-2022 End: 11-29-2022 Patient encounter procedure [facility]-Laboratory, Phy Office 3rd Flr Start: 09-24-2022 End: 09-24-2022 ambulatory [facility] Work Phone: Start: 09-24-2022 End: 09-24-2022 Patient encounter procedure [facility]-Radiology, [facility] Work Phone: Start: 09-21-2022 End: 09-21-2022 ambulatory [facility] Work Phone: Start: 09-21-2022 End: 09-21-2022 Patient encounter procedure [facility]-Pre-Admission Testing Work Phone: Start: 09-14-2022 End: 09-14-2022 Patient encounter procedure [facility]-Cat Scan, [facility] Work Phone: Start: 09-03-2022 End: 09-03-2022 Patient encounter procedure [facility]-Laboratory Work Phone: Start: 06-28-2022 End: 06-28-[address] Fox Fischer Work Phone: [facility]-Laboratory Start: 06-25-2022 End: 06-25-[address] Fox Fischer Work Phone: [facility] Work Phone: Start: 06-25-2022 End: 06-25-[address] Fox Fischer Work Phone: [facility]-Laboratory, Phy Office 3rd Flr Start: 06-07-2022 End: 06-07-[address] Fox Fischer Work Phone: [facility] Work Phone: Start: 06-07-2022 End: 06-07-[address] Fox Fischer Work Phone: [facility]-Laboratory Start: 04-23-2022 End: 04-23-[address] Fox Fischer Work Phone: [facility] Start: 02-26-2022 End: 02-26-[address] [facility] Start: 01-11-2022 End: 01-11-[address] Fox Fischer Work Phone: [facility] Work Phone: Start: 01-11-2022 End: 01-11-[address] Fox Fischer [facility] Start: 12-21-2021 End: 12-21-[address] Fox Fischer [facility] Start: 12-07-2021 End: 12-07-[address] [facility] Fischer [facility] Start: 11-29-2021 End: 11-29-[address] Fox Fischer Work Phone: [facility] Work Phone: Start: 11-29-2021 End: 11-29-[address] Fox Fischer [facility] Start: 11-23-2021 End: 11-23-[address] Fox Fischer Work Phone: [facility] Start: 11-16-[address] Fox valerio [facility] Start: 11-15-2021 End: 11-15-[address] Fox Fischer Work Phone: [facility] Work Phone: Start: 11-15-2021 End: 11-15-[address] Fox Fischer Work Phone: [facility]Laboratory Start: 10-23-2021 End: 10-23-[address] Fox Fischer Work Phone: [facility]Laboratory Start: 10-16-2021 End: 10-16-[address] Fox Fischer Work Phone: [facility] Start: 07-13-2017 End: 07-16-2017 Ambulatory [facility] Procedures Date Procedure Procedure Detail Performing Clinician Start: 07-02-2024 Vitamin D, 25-hydrox y measurement Dr. Fox Fischer MD Work Phone: Comment on above: Vitamin D StatusDefi ciency: <20 ng/mL (50nmol/L)Insufficiency: 20-30 ng/mL (50-75 nmol/L)Sufficiency: 30-100 ng/mL (75-250 nmol/L)Toxicity: >100 ng/mL (>250 nmol/L) Start: 07-12-2023 Computed tomography of abdomen and pelvis with contrast Dr. Fox Fischer Work Phone: Start: 12-05-2022 Ultrasonography of limb Start: 11-29-2022 X-ray of both feet Start: 11-29-2022 Investigation of tra nsfusion reaction Start: 11-29-2022 Microbial culture, routine Start: 09-24-2022 Radiography of ankle Start: 09-24-2022 Plain X-ray of tibia and fibula Start: 09-24-2022 Radiologic examinati on of knee Start: 09-21-2022 Nasal Screen MRSA/MSSA Start: 09-14-2022 MRI of lower extremity Start: 02-24-[address] MISTI SHIRLEY MD Comment on above: SNARE POLYPECTOMY Start: 03-18-2008 Arthroscopy of knee with medial meniscus repair DR MISTI SHIRLEY MD Start: 03-18-2003 Simple excision of i nguinal hernial sac DR MISTI SHIRLEY MD Cataract extraction and insertion of intraocular lens DR MISTI SHIRLEY MD Influenza Types A,B Direct FA (MERCEDEZ) Dr. Fox Fischer Work Phone: Repair of inguinal hernia DR MISTI SHIRLEY MD Respiratory syncytia l virus antigen assay Dr. Fox Fischer Work Phone: Septoplasty/submucou s resecj w/wo cartilage grf DR MISTI SHIRLEY MD Vitrectomy DR MISTI Florence MD Plan of Treatment Date Care Activity Detail Author Start: 12-05-2022 Ultrasonography of limb Ext No n Vasc Limited/Soft Tiss [facility] Start: 12-05-2022 US Extremity limited [facility] Patient referral [facility] Work Phone: Payers Date Payer Category Payer Self-pay [id number] 2012 Medicare [id number] 1945 Unknown [id number] 2.16.8 [id number] 1945 Unknown [id number] 2.16.8 [id number] 1945 Unknown [id number] 2.16.8 [id number] [facility] PACKAGE PLAN [id number] Unknown [id number] 2.16.8 [id number] Unknown [id number] 2.16.8 [id number] Unknown [id number] 2.16.8 [id number] Unknown [id number] 2.16.8 [id number] Unknown [id number] 2.16.8 [id number] Unknown [id number] 2.16.8 [id number] Unknown [id number] 2.16.8 [id number] Unknown [id number] 2.16.8 [id number] Social History Date Type Detail Facility Start: 10-16-2021 End: 02-26-2023 Tobacco smoking status NCIS Unknown if ever smoked [facility] Start: 1945 Sex Assigned At Male [facility] Start: 06-26-2023 Tobacco smoking status Smoker (findi ng) [facility] Comment on above: quit 2008 Sex Assigned At Sex [facility] Start: 08-20-2023 Tobacco smoking stat us NCIS Ex-smoker (finding) [facility] Start: 07-08-2024 Sex Male (finding) [facility] Functional Status Date Assessment Result Facility 07-16-2023 Functional Status Independent [facility] 07-16-2023 Functional Status bilateral knee high chana lied/on [facility] 07-16-2023 Functional Status Maintained [facility] 07-16-2023 Functional Status [facility] 06-26-2023 Functional Status Sensory Defici ts Hearing deficit, left ear, Hearing deficit, right ear [facility] Mental Status Date Assessment Result Facility 07-16-2023 Mental Status Orientation Oriented x 4 [facility] Clinical Notes 09-10-2022 to 05-08-2024 Note Date & Type Note Facility 05-08-2024 Evaluation note Diagnosis Onset Date Resolution MARIBELL (obstructive sleep apnea) chronic May 08 11:05am 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 April 11:05am [facility] Work Phone: 1(902) 880-473702-21-2025 Evaluation note* Diagnosis Onset Date Resolution Status Admit Date MARIBELL (obstructive sleep apnea) chroni c May 08, 2024 11:05am Stage 2 moderate COPD by GOL D classification chronic May 08 11:05am Dyspnea on exertion acute July 172024 8:24am Nonrheumatic aortic (valve) stenosis acute August 13, 2024 8 :24am Atherosclerotic heart diseas e of [place] coronary artery without angina pectoris chronic July 8:24am Essential hypertension chronic 2024 8:24am Hyperlipidemia chronic August 13, 2024 8:24am [facility] Work Phone: 1(385) 166-620404-30-2024 Hospital Discharge instructions Patient Education 07/16/2023 10:24:13 Nausea and Vomiting, Adult Nausea and Vomiting, Adult Nausea is the feeling that you have an upset stomach or that you are about to vomit. Vomiting is when stomach contents are thrown up and out of the mouth as a result of nausea. Vomiting can make you feel weak and cause you to become dehydrated. Dehydration can make you feel tired and thirsty, cause you to have a dry mouth, and decrease how often you urinate. Older adults and people with other diseases or a weak disease-fighting system (immune system) are at higher risk for dehydration. It is important to treat your nausea and vomiting as told by your health care provider. Follow these instructions at home: Watch your symptoms for any changes. Tell your health care provider about them. Follow these instructions to care for yourself at home. Eating and drinking Take an oral rehydration solution (ORS). This is a drink that is sold at pharmacies and retail stores. Drink clear fluids slowly and in small amounts as you are able. Clear fluids include water, ice chips, low-calorie sports drinks, and fruit juice that has water added (diluted fruit juice). Eat bland, mgdt-jj-zaxqnc foods in small amounts as you are able. These foods include bananas, applesauce, rice, lean meats, toast, and crackers. Avoid fluids that contain a lot of sugar or caffeine, such as energy drinks, sports drinks, and soda. Avoid alcohol. Avoid spicy or fatty foods. General instructions Take vzgy-jhz-khovtmi and prescription medicines only as told by your health care provider. Drink enough fluid to keep your urine pale yellow. Wash your hands often using soap and water. If soap and water are not available, use hand fagoting machine operator. Make sure that all people in your household wash their hands well and often. Rest at home while you recover. Watch your condition for any changes. Breathe slowly and deeply when you feel nauseated. Keep all follow-up visits as told by your health care provider. This is important. Contact a health care provider if: Your symptoms get worse. You have new symptoms. You have a fever. You cannot drink fluids without vomiting. Your nausea does not go away after 2 days. You feel light-headed or dizzy. You have a headache. You have muscle cramps. You have a rash. You have pain while urinating. Get help right away if: You have pain in your chest, neck, arm, or jaw. You feel extremely weak or you faint. You have persistent vomiting. You have vomit that is bright red or looks like black coffee grounds. You have bloody or black stools or stools that look like tar. You have a severe headache, a stiff neck, or both. You have severe pain, cramping, or bloating in your abdomen. You have difficulty breathing, or you are breathing very quickly. Your heart is beating very quickly. Your skin feels cold and clammy. You feel confused. You have signs of dehydration, such as: ?Dark urine, very little urine, or no urine. ?Cracked lips. ?Dry mouth. ?Sunken eyes. ?Sleepiness. ?Weakness. These symptoms may represent a serious problem that is an emergency. Do not wait to see if the symptoms will go away. Get medical help right away. Call your local emergency services (911 in the [place] Do not drive yourself to the hospital. Summary Nausea is the feeling that you have an upset stomach or that you are about to vomit. As nausea getsworse, it can lead to vomiting. Vomiting can make you feel weak and cause you to become dehydrated. Follow instructions from your health care provider about eating and drinking to prevent dehydration. Take hhkr-inw-xanrdhu and prescription medicines only as told by your health care provider. Contact your health care provider if your symptoms get worse, or you have new symptoms. Keep all follow-up visits as told by your health care provider. This is important. This information is not intended to replace advice given to you by your health care provider. Make sure you discuss any questions you have with your health care provider. Document Released: 03/04/2006 Document Revised: 06/26/2019 Document Reviewed: 08/12/2018 [employer] Patient Education 2020 [employer]. 07/16/2023 10:24:07 Monitored Anesthesia Care, Care After Monitored Anesthesia Care, Care After These instructions provide you with information about caring for yourself after your procedure. Your health care provider may also give you more specific instructions. Your treatment has been plannedaccording to current medical practices, but problems sometimes occur. Call your health care provider if you have any problems or questions after your procedure. What can I expect after the procedure? After your procedure, you may: Feel sleepy for several hours. Feel clumsy and have poor balance for several hours. Feel forgetful about what happened after the procedure. Have poor judgment for several hours. Feel nauseous or vomit. Have a sore throat if you had a breathing tube during the procedure. Follow these instructions at home: For at least 24 hours after the procedure: Have a responsible adult stay with you. It is important to have someone help care for you until youare awake and alert. Rest as needed. Do not: ?Participate in activities in which you could fall or become injured. ?Drive. ?Use heavy machinery. ?Drink alcohol. ?Take sleeping pills or medicines that cause drowsiness. ?Make important decisions or sign legal documents. ?Take care of children on your own. Eating and drinking Follow the diet that is recommended by your health care provider. If you vomit, drink water, juice, or soup when you can drink without vomiting. Make sure you have little or no nausea before eating solid foods. General instructions Take crpq-tsp-lddtrsa and prescription medicines only as told by your health care provider. If you have sleep apnea, surgery and certain medicines can increase your risk for breathing problems. Follow instructions from your health care provider about wearing your sleep device: ?Anytime you are sleeping, including during daytime naps. ?While taking prescription pain medicines, sleeping medicines, or medicines that make you drowsy. If you smoke, do not smoke without supervision. Keep all follow-up visits as told by your health care provider. This is important. Contact a health care provider if: You keep feeling nauseous or you keep vomiting. You feel light-headed. You develop a rash. You have a fever. Get help right away if: You have trouble breathing. Summary For several hours after your procedure, you may feel sleepy and have poor judgment. Have a responsible adult stay with you for at least 24 hours or until you are awake and alert. This information is not intended to replace advice given to you by your health care provider. Make sure you discuss any questions you have with your health care provider. Document Released: 06/24/2016 Document Revised: 06/02/2018 Document Reviewed: 06/24/2016 [employer] Patient Education 2020 [employer]. 07/16/2023 10:23:59 Spinal Anesthesia and Epidural Anesthesia, Care After Spinal Anesthesia and Epidural Anesthesia, Care After These instructions provide you with information about caring for yourself after your procedure. Your health care provider may also give you more specific instructions. Your treatment has been plannedaccording to current medical practices, but problems sometimes occur. Call your health care provider if you have any problems or questions after your procedure. What can I expect after the procedure? After the procedure, it is common to have: Sleepiness. Nausea. Vomiting. Numbness or tingling in your legs. Trouble urinating. Itching. Follow these instructions at home: For at least 24 hours after the procedure: Have a responsible adult stay with you. It is important to have someone help care for you until youare awake and alert. Rest as needed. Do not: ?Participate in activities in which you could fall or become injured. ?Drive. ?Use heavy machinery. ?Drink alcohol. ?Take sleeping pills or medicines that cause drowsiness. ?Make important decisions or sign legal documents. ?Take care of children on your own. Eating and drinking If you vomit, drink water, juice, or soup when you can drink without vomiting. Drink enough fluid to keep your urine pale yellow. Make sure you have little or no nausea before eating solid foods. Follow the diet recommended by your health care provider. General instructions Return to your normal activities as told by your health care provider. Ask your health care provider what activities are safe for you. Take yrae-mkp-xqzylqx and prescription medicines only as told by your health care provider. If you have sleep apnea, surgery and certain medicines can increase your risk for breathing problems. Follow instructions from your health care provider about wearing your sleep device: ?Anytime you are sleeping, including during daytime naps. ?While taking prescription pain medicines, sleeping medicines, or medicines that make you drowsy. Do not use any products that contain nicotine or tobacco, such as cigarettes and e-cigarettes. If you need help quitting, ask your health care provider. If you smoke, do not smoke without supervision. Keep all follow-up visits as told by your health care provider. This is important. Contact a health care provider if: You have nausea and vomiting that continue the day after anesthetic medicine was given. You develop a rash. Get help right away if: You have a fever. You have a persistent or severe headache. You develop blurred or double vision. You develop dizziness or feel light-headed. You faint. You have weakness, numbness, or tingling in your arms or legs. You have difficulty breathing. You are unable to pass urine. Summary After your procedure, it is common to have sleepiness, nausea, vomiting, and trouble passing urine. For at least 24 hours after the procedure, do not do things that will make you more likely to get hurt. Also, do not drive, use heavy machinery, or make important decisions. Do not eat solid foods until you have no nausea and no vomiting. Do not use products that contain nicotine or tobacco. Get help if you have a fever, persistent headache, blurred or double vision, weakness or numbness in arms and legs, or difficulty breathing or passing urine. This information is not intended to replace advice given to you by your health care provider. Make sure you discuss any questions you have with your health care provider. Document Released: 05/24/2004 Document Revised: 08/24/2019 Document Reviewed: 06/25/2016 [employer] Patient Education 2020 [employer]. 07/16/2023 10:23:50 Partial Knee Replacement, Care After Partial Knee Replacement, Care After This sheet gives you information about how to care for yourself after your procedure. Your health care provider may also give you more specific instructions. If you have problems or questions, contact your health care provider. What can I expect after the procedure? After the procedure, it is common to have: Pain. This can be controlled with pain medicine. Soreness. Stiffness. Swelling. Bruising. Follow these instructions at home: Medicines Take ldxk-etn-ghbiwkt and prescription medicines only as told by your health care provider. If you were prescribed a blood thinner (anticoagulant), take it as told by your health care provider. Ask your health care provider if the medicine prescribed to you: ?Requires you to avoid driving or using heavy machinery. ?Can cause constipation. You may need to take these actions to prevent or treat constipation: ?Drink enough fluid to keep your urine pale yellow. ?Take crmc-xuk-vedmyyz or prescription medicines. ?Eat foods that are high in fiber, such as beans, whole grains, and fresh fruits and vegetables. ?Limit foods that are high in fat and processed sugars, such as fried or sweet foods. Bathing Do not take baths, swim, or use a hot tub until your health care provider approves. Ask your healthcare provider if you may take showers. Keep your bandage (dressing) dry until your health care provider says it can be removed. If the dressing is not waterproof, cover it with a waterproof covering when you take a shower. Incision care Follow instructions from your health care provider about how to take care of your incision. Make sure you: ?Wash your hands with soap and water before and after you change your dressing. If soap and water are not available, use hand fagoting machine operator. ?Change your dressing as told by your health care provider. ?Leave stitches (sutures), skin glue, or adhesive strips in place. These skin closures may need to stay in place for 2 weeks or longer. If adhesive strip edges start to loosen and curl up, you may trim the loose edges. Do not remove adhesive strips completely unless your health care provider tells you to do that. Check your incision area every day for signs of infection. Check for: ?More redness, swelling, or pain. ?More fluid or blood. ?Warmth. ?Pus or a bad smell. Managing pain, stiffness, and swelling If directed, put ice on the affected area. ?Put ice in a plastic bag or use the icing device (cold flow pad or cryocuff) that you were given. Follow instructions from your health care provider about how to use the icing device. ?Place a towel between your skin and the bag or between your skin and the icing device. ?Leave the ice on for 20 minutes, 2 3 times a day. If directed, apply heat to the affected area before you exercise. Use the heat source that your health care provider recommends, such as a moist heat pack or a heating pad. ?Place a towel between your skin and the heat source. ?Leave the heat on for 20 30 minutes. ?Remove the heat if your skin turns bright red. This is especially important if you are unable to feel pain, heat, or cold. You may have a greater risk of getting burned. Move your toes often to reduce stiffness and swelling. Raise (elevate) your knee above the level of your heart while you are sitting or lying down. ?Use several pillows to keep your leg straight. ?Do not put a pillow just under the knee. If the knee is bent for a long time, this may lead to stiffness. Wear elastic knee support as told by your health care provider. Activity Use your walker, cane, or crutches to walk. You can put some weight on your knee. You should be able to walk without assistance after several days or a few weeks. Do your knee exercises as instructed by your physical therapist. Ask your health care provider when it is safe to drive. Return to your normal activities as told by your health care provider. Ask your health care provider what activities are safe for you. Returning to all your usual activities may take about 6 weeks. General instructions Wear compression stockings as told by your health care provider. Tell your health care provider if you plan to have dental work. Also, tell your dentist about your joint replacement. ?Ask your health care provider if there are any special instructions you need to follow before having dental care and routine cleanings. Do not use any products that contain nicotine or tobacco, such as cigarettes, e- cigarettes, and chewing tobacco. If you need help quitting, ask your health care provider. Keep all follow-up visits with your health care provider and your physical therapist. This is important. Physical therapy may continue for several months after surgery. Contact a health care provider if you: Have chills or a fever. Have pain that is not controlled by your pain medicine. Are unable to put weight on your knee. Have any signs of infection when you check your incision. Get help right away if you: Develop a warm, tender, red, or swollen area in your leg. Have chest pain or trouble breathing. Summary After the procedure, it is common to have pain, soreness, and stiffness. Follow instructions from your health care provider about how to take care of your incision. Check your incision area every day for signs of infection. Use your walker, cane, or crutches to walk as told by your health care provider. You may have to dothis for the first few days or weeks. You can put some weight on your knee as told by your health care provider. Return to your normal activities as told by your health care provider. Ask your health care provider what activities are safe for you. Returning to all your usual activities may take about 6 weeks. Call your health care provider if your pain medicine is not helping or if you have any signs of infection. This information is not intended to replace advice given to you by your health care provider. Make sure you discuss any questions you have with your health care provider. Document Released: 03/25/2019 Document Revised: 03/25/2019 Document Reviewed: 03/25/2019 [employer] Patient Education 2020 [employer]. Follow Up Care 05/29/2023 08:19:04 With:CARLOS ENRIQUE COFFMAN Address: [facility] [address] [place] [phone] Business (1) When:07/29/2023 15:00:00 [facility] 04-30-2024 Summary of episode note Discharge Instructions Thank you for allowing [facility] to assist you with your healthcare needs. The following is importantdischarge information regarding your hospital visit. Your Care Team DERRICK FISCHER MD What to do next Follow Up Appointments Follow Up with CARLOS ENRIQUE COFFMAN When 07/29/2023 03:00 PM EDT Where: [facility] [address] [place] [address] [facility] [place] [id number] (1) The Following Activity and Diet Have Been Ordered for You No qualifying data available. No qualifying data available. The Following Treatments Have Been Ordered for You Discharge Labs No qualifying data available. Discharge Radiology No qualifying data available. Other Therapies No qualifying data available. Post Acute Orders No qualifying data available. Someone Will Contact You Regarding These Home Health Referrals No home referrals have been ordered for you. No one will call you. Allergies Shellfish Contrast Dye(s) (ITCHING) Petroleum Jelly Statins Tape Triple antibiotic ointment to site onions Medications Please ask your primary doctor or pharmacist before taking any other medication not listed, including over the counter drugs, herbal medications, vitamins and or supplements as they may interact withyour home medications. What How Much When Instructions Last Dose Unchanged albuterol (albuterol MDI (90 mcg/ inh) CFC freeinhalation aerosol) 1 puff(s) by inhalation Once as needed for as needed for wheezing Unchanged amLODIPine (amLODIPine 10 mg oral tablet) take 1 tablet by mouth at bedtime Unchanged aspirin (aspirin 81 mg oral delayed release tablet) take 1 tablet by mouth every other day Unchanged cholecalciferol (Vitamin D3) 25 Microgram by mouth Every day Unchanged escitalopram (escitalopram 5 mg oral tablet) take 1 tablet by mouth once daily Unchanged ezetimibe (ezetimibe 10 mg oral tablet) 1 tab(s) by mouth Every day Unchanged gemfibrozil (gemfibrozil 600 mg oral tablet) take 1 tablet by mouth twice a day Unchanged latanoprost ophthalmic (latanoprost 0.005% ophthalmic solution) instill 1 drop into both eyes at bedtime Unchanged levothyroxine (levothyroxine 25 mcg (0.025 mg) oral tablet) 1 tab(s) by mouth Once a day before a meal Unchanged metoprolol (Lopressor 25mg--USE metoprolol tartrate 25 mg oral tablet) Unchanged multivitamin (Multiple Vitamins oral capsule) 1 cap by mouth Every day Unchanged tamsulosin (tamsulosin 0.4 mg oral capsule) take 1 capsule by mouth at bedtime Please take this list to your next doctor s visit. Bring all medications you take, including over the counter medications, herbals and other supplements with you to your doctor s visit. Patients and families are reminded to discard old lists and to update any records with all medication providers or retail pharmacies. Education Materials Nausea and Vomiting, Adult Nausea is the feeling that you have an upset stomach or that you are about to vomit. Vomiting is when stomach contents are thrown up and out of the mouth as a result of nausea. Vomiting can make you feel weak and cause you to become dehydrated. Dehydration can make you feel tired and thirsty, cause you to have a dry mouth, and decrease how often you urinate. Older adults and people with other diseases or a weak disease-fighting system (immune system) are at higher risk for dehydration. It is important to treat your nausea and vomiting as told by your health care provider. Follow these instructions at home: Watch your symptoms for any changes. Tell your health care provider about them. Follow these instructions to care for yourself at home. Eating and drinking Take an oral rehydration solution (ORS). This is a drink that is sold at pharmacies and retail stores. Drink clear fluids slowly and in small amounts as you are able. Clear fluids include water, ice chips, low-calorie sports drinks, and fruit juice that has water added (diluted fruit juice). Eat bland, kzsu-us-ekppir foods in small amounts as you are able. These foods include bananas, applesauce, rice, lean meats, toast, and crackers. Avoid fluids that contain a lot of sugar or caffeine, such as energy drinks, sports drinks, and soda. Avoid alcohol. Avoid spicy or fatty foods. General instructions Take edsj-dtl-brzcpgb and prescription medicines only as told by your health care provider. Drink enough fluid to keep your urine pale yellow. Wash your hands often using soap and water. If soap and water are not available, use hand fagoting machine operator. Make sure that all people in your household wash their hands well and often. Rest at home while you recover. Watch your condition for any changes. Breathe slowly and deeply when you feel nauseated. Keep all follow-up visits as told by your health care provider. This is important. Contact a health care provider if: Your symptoms get worse. You have new symptoms. You have a fever. You cannot drink fluids without vomiting. Your nausea does not go away after 2 days. You feel light-headed or dizzy. You have a headache. You have muscle cramps. You have a rash. You have pain while urinating. Get help right away if: You have pain in your chest, neck, arm, or jaw. You feel extremely weak or you faint. You have persistent vomiting. You have vomit that is bright red or looks like black coffee grounds. You have bloody or black stools or stools that look like tar. You have a severe headache, a stiff neck, or both. You have severe pain, cramping, or bloating in your abdomen. You have difficulty breathing, or you are breathing very quickly. Your heart is beating very quickly. Your skin feels cold and clammy. You feel confused. You have signs of dehydration, such as: ? Dark urine, very little urine, or no urine. ? Cracked lips. ? Dry mouth. ? Sunken eyes. ? Sleepiness. ? Weakness. These symptoms may represent a serious problem that is an emergency. Do not wait to see if the symptoms will go away. Get medical help right away. Call your local emergency services (911 in the [place] Do not drive yourself to the hospital. Summary Nausea is the feeling that you have an upset stomach or that you are about to vomit. As nausea getsworse, it can lead to vomiting. Vomiting can make you feel weak and cause you to become dehydrated. Follow instructions from your health care provider about eating and drinking to prevent dehydration. Take owwq-yft-xhaforu and prescription medicines only as told by your health care provider. Contact your health care provider if your symptoms get worse, or you have new symptoms. Keep all follow-up visits as told by your health care provider. This is important. This information is not intended to replace advice given to you by your health care provider. Make sure you discuss any questions you have with your health care provider. Document Released: 03/04/2006 Document Revised: 06/26/2019 Document Reviewed: 08/12/2018 [employer] Patient Education 2020 [employer] Monitored Anesthesia Care, Care After These instructions provide you with information about caring for yourself after your procedure. Your health care provider may also give you more specific instructions. Your treatment has been plannedaccording to current medical practices, but problems sometimes occur. Call your health care provider if you have any problems or questions after your procedure. What can I expect after the procedure? After your procedure, you may: Feel sleepy for several hours. Feel clumsy and have poor balance for several hours. Feel forgetful about what happened after the procedure. Have poor judgment for several hours. Feel nauseous or vomit. Have a sore throat if you had a breathing tube during the procedure. Follow these instructions at home: For at least 24 hours after the procedure: Have a responsible adult stay with you. It is important to have someone help care for you until youare awake and alert. Rest as needed. Do not: ? Participate in activities in which you could fall or become injured. ? Drive. ? Use heavy machinery. ? Drink alcohol. ? Take sleeping pills or medicines that cause drowsiness. ? Make important decisions or sign legal documents. ? Take care of children on your own. Eating and drinking Follow the diet that is recommended by your health care provider. If you vomit, drink water, juice, or soup when you can drink without vomiting. Make sure you have little or no nausea before eating solid foods. General instructions Take xssz-dsa-nkvzque and prescription medicines only as told by your health care provider. If you have sleep apnea, surgery and certain medicines can increase your risk for breathing problems. Follow instructions from your health care provider about wearing your sleep device: ? Anytime you are sleeping, including during daytime naps. ? While taking prescription pain medicines, sleeping medicines, or medicines that make you drowsy. If you smoke, do not smoke without supervision. Keep all follow-up visits as told by your health care provider. This is important. Contact a health care provider if: You keep feeling nauseous or you keep vomiting. You feel light-headed. You develop a rash. You have a fever. Get help right away if: You have trouble breathing. Summary For several hours after your procedure, you may feel sleepy and have poor judgment. Have a responsible adult stay with you for at least 24 hours or until you are awake and alert. This information is not intended to replace advice given to you by your health care provider. Make sure you discuss any questions you have with your health care provider. Document Released: 06/24/2016 Document Revised: 06/02/2018 Document Reviewed: 06/24/2016 [employer] Patient Education 2020 [employer] Spinal Anesthesia and Epidural Anesthesia, Care After These instructions provide you with information about caring for yourself after your procedure. Your health care provider may also give you more specific instructions. Your treatment has been plannedaccording to current medical practices, but problems sometimes occur. Call your health care provider if you have any problems or questions after your procedure. What can I expect after the procedure? After the procedure, it is common to have: Sleepiness. Nausea. Vomiting. Numbness or tingling in your legs. Trouble urinating. Itching. Follow these instructions at home: For at least 24 hours after the procedure: Have a responsible adult stay with you. It is important to have someone help care for you until youare awake and alert. Rest as needed. Do not: ? Participate in activities in which you could fall or become injured. ? Drive. ? Use heavy machinery. ? Drink alcohol. ? Take sleeping pills or medicines that cause drowsiness. ? Make important decisions or sign legal documents. ? Take care of children on your own. Eating and drinking If you vomit, drink water, juice, or soup when you can drink without vomiting. Drink enough fluid to keep your urine pale yellow. Make sure you have little or no nausea before eating solid foods. Follow the diet recommended by your health care provider. General instructions Return to your normal activities as told by your health care provider. Ask your health care provider what activities are safe for you. Take kjft-cuk-ytrkhaj and prescription medicines only as told by your health care provider. If you have sleep apnea, surgery and certain medicines can increase your risk for breathing problems. Follow instructions from your health care provider about wearing your sleep device: ? Anytime you are sleeping, including during daytime naps. ? While taking prescription pain medicines, sleeping medicines, or medicines that make you drowsy. Do not use any products that contain nicotine or tobacco, such as cigarettes and e-cigarettes. If you need help quitting, ask your health care provider. If you smoke, do not smoke without supervision. Keep all follow-up visits as told by your health care provider. This is important. Contact a health care provider if: You have nausea and vomiting that continue the day after anesthetic medicine was given. You develop a rash. Get help right away if: You have a fever. You have a persistent or severe headache. You develop blurred or double vision. You develop dizziness or feel light-headed. You faint. You have weakness, numbness, or tingling in your arms or legs. You have difficulty breathing. You are unable to pass urine. Summary After your procedure, it is common to have sleepiness, nausea, vomiting, and trouble passing urine. For at least 24 hours after the procedure, do not do things that will make you more likely to get hurt. Also, do not drive, use heavy machinery, or make important decisions. Do not eat solid foods until you have no nausea and no vomiting. Do not use products that contain nicotine or tobacco. Get help if you have a fever, persistent headache, blurred or double vision, weakness or numbness in arms and legs, or difficulty breathing or passing urine. This information is not intended to replace advice given to you by your health care provider. Make sure you discuss any questions you have with your health care provider. Document Released: 05/24/2004 Document Revised: 08/24/2019 Document Reviewed: 06/25/2016 [employer] Patient Education 2020 [employer] Partial Knee Replacement, Care After This sheet gives you information about how to care for yourself after your procedure. Your health care provider may also give you more specific instructions. If you have problems or questions, contact your health care provider. What can I expect after the procedure? After the procedure, it is common to have: Pain. This can be controlled with pain medicine. Soreness. Stiffness. Swelling. Bruising. Follow these instructions at home: Medicines Take schk-yrw-ofyaqme and prescription medicines only as told by your health care provider. If you were prescribed a blood thinner (anticoagulant), take it as told by your health care provider. Ask your health care provider if the medicine prescribed to you: ? Requires you to avoid driving or using heavy machinery. ? Can cause constipation. You may need to take these actions to prevent or treat constipation: ? Drink enough fluid to keep your urine pale yellow. ? Take tuhd-xor-otvoqxq or prescription medicines. ? Eat foods that are high in fiber, such as beans, whole grains, and fresh fruits and vegetables. ? Limit foods that are high in fat and processed sugars, such as fried or sweet foods. Bathing Do not take baths, swim, or use a hot tub until your health care provider approves. Ask your healthcare provider if you may take showers. Keep your bandage (dressing) dry until your health care provider says it can be removed. If the dressing is not waterproof, cover it with a waterproof covering when you take a shower. Incision care Follow instructions from your health care provider about how to take care of your incision. Make sure you: ? Wash your hands with soap and water before and after you change your dressing. If soap and water are not available, use hand fagoting machine operator. ? Change your dressing as told by your health care provider. ? Leave stitches (sutures), skin glue, or adhesive strips in place. These skin closures may need to stay in place for 2 weeks or longer. If adhesive strip edges start to loosen and curl up, you may trim the loose edges. Do not remove adhesive strips completely unless your health care provider tells you to do that. Check your incision area every day for signs of infection. Check for: ? More redness, swelling, or pain. ? More fluid or blood. ? Warmth. ? Pus or a bad smell. Managing pain, stiffness, and swelling If directed, put ice on the affected area. ? Put ice in a plastic bag or use the icing device (cold flow pad or cryocuff) that you were given. Follow instructions from your health care provider about how to use the icing device. ? Place a towel between your skin and the bag or between your skin and the icing device. ? Leave the ice on for 20 minutes, 2 3 times a day. If directed, apply heat to the affected area before you exercise. Use the heat source that your health care provider recommends, such as a moist heat pack or a heating pad. ? Place a towel between your skin and the heat source. ? Leave the heat on for 20 30 minutes. ? Remove the heat if your skin turns bright red. This is especially important if you are unable to feel pain, heat, or cold. You may have a greater risk of getting burned. Move your toes often to reduce stiffness and swelling. Raise (elevate) your knee above the level of your heart while you are sitting or lying down. ? Use several pillows to keep your leg straight. ? Do not put a pillow just under the knee. If the knee is bent for a long time, this may lead to stiffness. Wear elastic knee support as told by your health care provider. Activity Use your walker, cane, or crutches to walk. You can put some weight on your knee. You should be able to walk without assistance after several days or a few weeks. Do your knee exercises as instructed by your physical therapist. Ask your health care provider when it is safe to drive. Return to your normal activities as told by your health care provider. Ask your health care provider what activities are safe for you. Returning to all your usual activities may take about 6 weeks. General instructions Wear compression stockings as told by your health care provider. Tell your health care provider if you plan to have dental work. Also, tell your dentist about your joint replacement. ? Ask your health care provider if there are any special instructions you need to follow before having dental care and routine cleanings. Do not use any products that contain nicotine or tobacco, such as cigarettes, e- cigarettes, and chewing tobacco. If you need help quitting, ask your health care provider. Keep all follow-up visits with your health care provider and your physical therapist. This is important. Physical therapy may continue for several months after surgery. Contact a health care provider if you: Have chills or a fever. Have pain that is not controlled by your pain medicine. Are unable to put weight on your knee. Have any signs of infection when you check your incision. Get help right away if you: Develop a warm, tender, red, or swollen area in your leg. Have chest pain or trouble breathing. Summary After the procedure, it is common to have pain, soreness, and stiffness. Follow instructions from your health care provider about how to take care of your incision. Check your incision area every day for signs of infection. Use your walker, cane, or crutches to walk as told by your health care provider. You may have to dothis for the first few days or weeks. You can put some weight on your knee as told by your health care provider. Return to your normal activities as told by your health care provider. Ask your health care provider what activities are safe for you. Returning to all your usual activities may take about 6 weeks. Call your health care provider if your pain medicine is not helping or if you have any signs of infection. This information is not intended to replace advice given to you by your health care provider. Make sure you discuss any questions you have with your health care provider. Document Released: 03/25/2019 Document Revised: 03/25/2019 Document Reviewed: 03/25/2019 Elsevier Patient Education 2020 [employer] Additional Information VACCINATE! IT SAVES LIVES! Members of the community who have not yet received the COVID-19 vaccine and would like to receive it can visit one of [facility] vaccine clinics. There are many vaccine clinic locations within the [facility]. For locations and available times, please visit [email or web address] It is important to note that some COVID mobile vaccine clinics are held outdoors and may be canceled in rainy or stormy conditions. To learn more about pediatric vaccinations (ages 5-11), we invite you to visit the [facility] webpage. [email or web address]/[email or web address] [email or web address].htmlTo learn more about the COVID-19 vaccine, we invite you to visit the CDC website for a list of frequently asked questions.https://www.cdc.gov/coronavirus/2019-ncov/vaccines/faq.html [facility] Patient Portal Access Instructions: Stay connected with your healthcare team and access your personal medical information anytime with the [facility] Patient Portal. Please follow the directions below to create your [facility] account: 1.Access the email account you provided upon registration to the hospital/physician office.2.Look for an invitation email from [facility].3.Open the email and access the invitation link: AcceptInvitation to [facility].4.Fill in the required crowley to create your account. To access your account, visit CloudCheckr/CMOSIS nvt. Click the blue button labeled Access Patient Portal and then log in with the username and password that you created in the steps above. You will be able to view your test results, lab results, a summary of your visits, upcoming appointments and more. There is also a convenient messaging option where you can send secure messages to your p rovider. In addition, you will have the ability to download any documents or summaries to your computer and/or send the information securely to a physician. Remember that your healthcare information is confidential, so carefully consider who you will allowto register on the [facility] Patient Portal for access to your information. You can also access the [facility] Patient Portal on the Car reviewswhere chana. Simply click on Patient Portal and then log into your account. If you would like to receive a full copy of your medical records, please contact the [facility] Medical Records Department by calling [phone], Saturday through Saturday between 8 a.m. and 4:30 p.m. HOW TO SAFELY DISPOSE OF PRESCRIPTION MEDICATIONS Please use one of the following methods to safely dispose of your unused medications. 1.Use a drug disposal kit: the drug disposal pouch allows you to safely discard your old and unuseddrugs. Ask your nurse to give you one when you are discharged.2.Visit a local take-back location: Many local pharmacies and police departments have programs that collect old and unwanted prescriptiondrugs. Call your local pharmacy or go to http://CorCardia.Smilebox/8X8Rc4r to find one close to you.3.Make use of household items: Use cat litter or old coffee grounds to dispose medications if other options arenot available. Mix your drugs with these household products, seal them in an airtight container andthrow it into the garbage. Call [facility]: [phone] to be sure your drugs can be disposed of in this way. Some medicines may require a different approach.4.Never flush your medications down the toilet. IF YOU HAVE BEEN PRESCRIBED AN OPIOID FOR PAIN If you have been prescribed an opioid (such as hydrocodone, oxycodone or morphine), it is critical to understand the possible side effects and risks of opioid pain medications. Even when taken as directed, opioids can have several side effects including: Tolerance, meaning you might need to take more of a medication for the same pain relief. Nausea, vomiting and/or constipation. Sleepiness, dizziness, dry mouth, confusion, depression or itching. Physical dependence, meaning you have withdrawal symptoms when a medication is stopped, can develop within a few days. KNOW YOUR RESPONSIBILITIES It is important to know exactly how much and how often to take the opioid pain medications you are prescribed. Never take opioids in higher amounts or more often than prescribed. Do not combine opioids with alcohol or other drugs that cause drowsiness, such as benzodiazepines, also known as benzos, including diazepam and alprazolam, muscle relaxants or sleep aids. Never sell or share prescription opioids. This is illegal. Store opioids in a secure place and out of reach of others (including children, family, friends and visitors). The last page of this document has been signed and retained as a CHART COPY. Signatures Patient Education Materials Nausea and Vomiting, Adult Monitored Anesthesia Care, Care After Spinal Anesthesia and Epidural Anesthesia, Care After Partial Knee Replacement, Care After Medication Leaflets My discharge plan and instructions have been reviewed and explained to me and I,CARLEE LEE understand my current condition and have read and understand these discharge instructions. I have received a written copy of the plan/instructions. If I have questions, I am aware that I should contact my doctor. 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 HISTORY: ORDERING SYSTEM PROVIDED HISTORY: Reason for Exam: Status Post Arthroplasty FINDINGS: A new medial tibiofemoral compartment hemiarthroplasty seen. Air and fluid seen in the joint space and soft tissues. No periprosthetic fracture. Mild patellofemoral degenerative changes. Vascular calcifications. Skin armen. IMPRESSION: Interval hemiarthroplasty. 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 Assessment Postanesthesia assessment Vitals: Vital signs from flowsheet : Vital Signs 07/16/2023 8:45 EDT Temperature (Route Not Specified) 36 DegC DegC Heart Rate Monitored 73 bpm bpm Respiratory Rate - Anes 12 br/min br/min Systolic Blood Pressure Non-Invasive 112 mmHg mmHg Diastolic Blood Pressure Non-Invasive 71 mmHg mmHg 07/16/2023 8:40 EDT Heart Rate Monitored 71 bpm bpm Respiratory Rate - Anes 12 br/min br/min Systolic Blood Pressure Non-Invasive 118 mmHg mmHg Diastolic Blood Pressure Non-Invasive 71 mmHg mmHg 07/16/2023 8:35 EDT Heart Rate Monitored 70 bpm bpm Respiratory Rate - Anes 11 br/min br/min Systolic Blood Pressure Non-Invasive 98 mmHg mmHg Diastolic Blood Pressure Non-Invasive 67 mmHg mmHg 07/16/2023 8:30 EDT Temperature (Route Not Specified) 36 DegC DegC Heart Rate Monitored 67 bpm bpm Respiratory Rate - Anes 13 br/min br/min Systolic Blood Pressure Non-Invasive 116 mmHg mmHg Diastolic Blood Pressure Non-Invasive 65 mmHg mmHg 07/16/2023 8:25 EDT Heart Rate Monitored 66 bpm bpm Respiratory Rate - Anes 11 br/min br/min Systolic Blood Pressure Non-Invasive 120 mmHg mmHg Diastolic Blood Pressure Non-Invasive 70 mmHg mmHg 07/16/2023 8:20 EDT Heart Rate Monitored 62 bpm bpm Respiratory Rate - Anes 11 br/min br/min Systolic Blood Pressure Non-Invasive 137 mmHg mmHg Diastolic Blood Pressure Non-Invasive 73 mmHg mmHg 07/16/2023 8:15 EDT Temperature (Route Not Specified) 36 DegC DegC Heart Rate Monitored 61 bpm bpm Respiratory Rate - Anes 12 br/min br/min Systolic Blood Pressure Non-Invasive 126 mmHg mmHg Diastolic Blood Pressure Non-Invasive 73 mmHg mmHg 07/16/2023 8:10 EDT Heart Rate Monitored 59 bpm bpm Respiratory Rate - Anes 12 br/min br/min Systolic Blood Pressure Non-Invasive 133 mmHg mmHg Diastolic Blood Pressure Non-Invasive 70 mmHg mmHg 07/16/2023 8:05 EDT Heart Rate Monitored 59 bpm bpm Respiratory Rate - Anes 13 br/min br/min Systolic Blood Pressure Non-Invasive 130 mmHg mmHg Diastolic Blood Pressure Non-Invasive 75 mmHg mmHg 07/16/2023 8:00 EDT Temperature (Route Not Specified) 36 DegC DegC Heart Rate Monitored 58 bpm bpm Respiratory Rate - Anes 12 br/min br/min Systolic Blood Pressure Non-Invasive 133 mmHg mmHg Diastolic Blood Pressure Non-Invasive 74 mmHg mmHg 07/16/2023 7:55 EDT Heart Rate Monitored 57 bpm bpm Respiratory Rate - Anes 13 br/min br/min Systolic Blood Pressure Non-Invasive 131 mmHg mmHg Diastolic Blood Pressure Non-Invasive 70 mmHg mmHg 07/16/2023 7:50 EDT Heart Rate Monitored 58 bpm bpm Respiratory Rate - Anes 0 br/min br/min Systolic Blood Pressure Non-Invasive 132 mmHg mmHg Diastolic Blood Pressure Non-Invasive 71 mmHg mmHg 07/16/2023 7:45 EDT Temperature (Route Not Specified) 36 DegC DegC Heart Rate Monitored 57 bpm bpm Respiratory Rate - Anes 13 br/min br/min Systolic Blood Pressure Non-Invasive 138 mmHg mmHg Diastolic Blood Pressure Non-Invasive 74 mmHg mmHg 07/16/2023 7:40 EDT Heart Rate Monitored 58 bpm bpm Respiratory Rate - Anes 13 br/min br/min Systolic Blood Pressure Non-Invasive 127 mmHg mmHg Diastolic Blood Pressure Non-Invasive 73 mmHg mmHg 07/16/2023 7:35 EDT Heart Rate Monitored 60 bpm bpm Respiratory Rate - Anes 13 br/min br/min Systolic Blood Pressure Non-Invasive 139 mmHg mmHg Diastolic Blood Pressure Non-Invasive 75 mmHg mmHg 07/16/2023 7:30 EDT Temperature (Route Not Specified) 36 DegC DegC Heart Rate Monitored 53 bpm bpm Respiratory Rate - Anes 12 br/min br/min Systolic Blood Pressure Non-Invasive 146 mmHg mmHg Diastolic Blood Pressure Non-Invasive 77 mmHg mmHg 07/16/2023 7:25 EDT Heart Rate Monitored 49 bpm bpm Respiratory Rate - Anes 5 br/min br/min Systolic Blood Pressure Non-Invasive 177 mmHg mmHg Diastolic Blood Pressure Non-Invasive 81 mmHg mmHg 07/16/2023 7:20 EDT Respiratory Rate - Anes 0 br/min br/min Systolic Blood Pressure Non-Invasive 154 mmHg mmHg Diastolic Blood Pressure Non-Invasive 74 mmHg mmHg 07/16/2023 7:15 EDT Respiratory Rate - Anes 0 br/min br/min 07/16/2023 5:43 EDT Temperature Temporal Artery 36.4 DegC Apical Heart Rate 59 bpm LOW Respiratory Rate 18 br/min Systolic Blood Pressure Non-Invasive 178 mmHg HI Diastolic Blood Pressure Non-Invasive 93 mmHg HI , Measurements from flowsheet . Mental status: alert & oriented x 4. Respiratory function: respirations are non-labored. Respiratory support: none. CV function: Normal rate. Cardiovascular support: none. Pain. Nausea status: see nursing documentation of medications. Postoperative hydration status: within normal limits. Digitally Signed by LIVE RIVAS on 07/16/2023 08:51 AM [facility]04-30-2024 Anesthesiology Consult note Patient: CARLEE LEE Age: 77 years Sex: Male : 1945 Associated Diagnoses: None Author: LIVE RIVAS Preoperative Information Time of last food or liquid consumption: 07/16/2023 00:00:00 Anesthesia history Patient's history: negative. Family's history: negative. Health Status Allergies: Allergic Reactions (Selected) Mild Shellfish- No reactions were documented. Severity Not Documented Contrast Dye(s)- Itching. Onions- No reactions were documented. Petroleum Jelly- No reactions were documented. Statins- No reactions were documented. Tape- No reactions were documented. Triple antibiotic ointment to site- No reactions were documented., Allergies (7) ActiveReaction ShellfishNone Documented Contrast Dye(s)ITCHING onionsNone Documented Petroleum JellyNone Documented StatinsNone Documented TapeNone Documented Triple antibiotic ointment to siteNone Documented Current medications: (Selected) Inpatient Medications Ordered Cyklokapron IVPB: 2,000 mg, 20 mL, 0 mL/hr, Topical (INT), PREOP pharm Decadron: 10 mg, 1 mL, IV Push, AsDirected LR 1,000 mL: 20 mL/hr, Intravenous, Stop: 07/16/23 23:59:00 EDT Naropin 25 mg + EPINEPHrine 1 mg/mL injectable solution 0.3 mg + morphine 2.5 m mg, 5 mL, 0 mL/hr, Other, PREOP pharm Naropin 25 mg + EPINEPHrine 1 mg/mL injectable solution 0.3 mg + morphine 2.5 m mg, 5 mL, 0 mL/hr, Other, PREOP pharm ceFAZolin: 2 gram(s), 200 mL/hr, IV Piggyback, PREOP pharm Documented Medications Documented Lopressor 25mg--USE metoprolol tartrate 25 mg oral tablet: 0 Refill(s) Multiple Vitamins oral capsule: 1 cap(s), Oral, Daily, 0 Refill(s) Vitamin D3: 25 mcg, 1 tab(s), Oral, Daily, 30 tab(s), 0 Refill(s) albuterol MDI (90 mcg/inh) CFC free inhalation aerosol: 1 puff(s), Inhalation, Once, PRN: as neededfor wheezing, 18 gram(s), 0 Refill(s) amLODIPine 10 mg oral tablet: take 1 tablet by mouth at bedtime aspirin 81 mg oral delayed release tablet: take 1 tablet by mouth every other day escitalopram 5 mg oral tablet: take 1 tablet by mouth once daily ezetimibe 10 mg oral tablet: 10 mg, 1 tab(s), Oral, Daily, 0 Refill(s) gemfibrozil 600 mg oral tablet: take 1 tablet by mouth twice a day latanoprost 0.005% ophthalmic solution: instill 1 drop into both eyes at bedtime levothyroxine 25 mcg (0.025 mg) oral tablet: 25 mcg, 1 tab(s), Oral, qDayAC, 0 Refill(s) tamsulosin 0.4 mg oral capsule: take 1 capsule by mouth at bedtime, Medications (6) Active Scheduled: (5) ceFAZolin 2 gram(s), IV Piggyback, PREOP pharm dexamethasone 10 mg/mL (1mL) SDV 10 mg 1 mL, IV Push, AsDirected ropivacaine 25 mg + epinephrine 0.3 mg + morphine 2.5 mg 25 mg 5 mL, Other, PREOP pharm ropivacaine 25 mg + epinephrine 0.3 mg + morphine 2.5 mg 25 mg 5 mL, Other, PREOP pharm tranexamic acid 2,000 mg 20 mL, Topical (INT), PREOP pharm Continuous: (1) Lactated Ringers 1,000 mL 1,000 mL, Intravenous, 20 mL/hr PRN: (0) Problem list: Active Problems (13) Arteriosclerosis COPD (chronic obstructive pulmonary disease) Emphysema of lung Heart murmur Hiatal hernia HTN (hypertension) Hypothyroidism Mass of kidney Myocardial infarction Osteoarthritis Sleep apnea Stented coronary artery Tobacco use Histories Past Medical History: Resolved HLD (hyperlipidemia) ([id number]): Resolved. Benign hypertension (47322882): Resolved. GERD - Gastro-esophageal reflux disease (3194176878): Resolved. Colon polyps ([id number]): Resolved. Family History: Heart disease Father High blood pressure Father Coronary artery disease 14-Sep-2015 02:33:12<$> Father Glaucoma Sister Procedure history: Colonoscopy ([id number]) on 02/24/2016 at 70 Years. Comments: 02/24/2016 9:29 Radha Flores RN SNARE POLYPECTOMY Arthroscopy of knee with medial meniscus repair (95670967) in 2008 at 63 Years. Herniotomy ([id number]) in 2003 at 58 Years. Septoplasty or submucous resection, with or without cartilage scoring, contouring or replacement with graft (74262). Inguinal herniorrhaphy (17519438). Vitrectomy ([id number]). CEIOL - Cataract extraction and insertion of intraocular lens ([id number]). Social History Social & Psychosocial Habits Alcohol 06/26/2023 Use: Current Frequency: 1-2 times per month Substance Abuse 06/26/2023 Use: Never Tobacco 06/26/2023 Tobacco Use: Smoker, current status un Comment: quit 2008 - 06/26/2023 14:08 - Tayler Ayala RN . Physical Examination Vital Signs 07/16/2023 7:35 EDT Heart Rate Monitored 60 bpm bpm Respiratory Rate - Anes 13 br/min br/min Systolic Blood Pressure Non-Invasive 139 mmHg mmHg Diastolic Blood Pressure Non-Invasive 75 mmHg mmHg 07/16/2023 7:30 EDT Temperature (Route Not Specified) 36 DegC DegC Heart Rate Monitored 53 bpm bpm Respiratory Rate - Anes 12 br/min br/min Systolic Blood Pressure Non-Invasive 146 mmHg mmHg Diastolic Blood Pressure Non-Invasive 77 mmHg mmHg 07/16/2023 7:25 EDT Heart Rate Monitored 49 bpm bpm Respiratory Rate - Anes 5 br/min br/min Systolic Blood Pressure Non-Invasive 177 mmHg mmHg Diastolic Blood Pressure Non-Invasive 81 mmHg mmHg 07/16/2023 7:20 EDT Respiratory Rate - Anes 0 br/min br/min Systolic Blood Pressure Non-Invasive 154 mmHg mmHg Diastolic Blood Pressure Non-Invasive 74 mmHg mmHg 07/16/2023 7:15 EDT Respiratory Rate - Anes 0 br/min br/min 07/16/2023 5:43 EDT Temperature Temporal Artery 36.4 DegC Apical Heart Rate 59 bpm LOW Respiratory Rate 18 br/min Systolic Blood Pressure Non-Invasive 178 mmHg HI Diastolic Blood Pressure Non-Invasive 93 mmHg HI Vital Signs(last 24 hrs) Last Charted Heart Rate Eljyaxgyh09 bpm (JUL 15 07:35) KVS757 mmHg (JUL 15 07:35) DBP75 mmHg (JUL 15 07:35) BMI26.75 (JUL 15 06:07) Measurements from flowsheet : Measurements 07/16/2023 6:07 EDT Body Mass Index 26.75 kg/m2 07/16/2023 5:43 EDT Height 182.9 cm Admission Weight 89.5 kg Honeydew Body Weight 77.62 kg Admission Body Mass Index 26.75 m2 Pain assessment: Pain Assessment 07/16/2023 6:21 EDT Primary Pain Intensity 0 07/16/2023 5:43 EDT Primary Pain Intensity 0 Pain Scale Type 0-10 Pain scale . General: Alert and oriented. Airway: Normal temporomandibular joint mobility, Normal mouth, Normal neck range of motion. Mallampati classification: II (soft palate, fauces, uvula visible). Dentition Evaluation: Denies loose/chipped teeth. Respiratory: Respirations are non-labored, his normal cough and wheeze on forced exhale. Cardiovascular: Normal rate. Neurologic: Alert, Oriented. Review / Management Results review: No qualifying data available , Lab results 07/16/2023 7:42 EDT SN - GCD - ASA Class 3 SN - GCD - Post-operative Diagnosis PRIMARY OSTEOARTHRITIS LEFT KNEE SN - GCD - Case Level Level 6 07/16/2023 7:41 EDT SN - Cul - Culture Type No Specimen per Surgeon 07/16/2023 7:40 EDT SN - CTm - Surgery Start 07/16/2023 7:37 07/16/2023 7:40 EDT SN - CAt - Case Attendee SN - CAt - Case Attendee SN - CAt - Case Attendee SN - CAt - Case Attendee SN - CAt - Case Attendee SN - CAt - Case Attendee SN - CAt - Case Attendee SN - CAt - Case Attendee SN - CAt - Case Attendee SN - CAt - Case Attendee SN - CAt - Case Attendee SN - CAt - Case Attendee SN - CAt - Case Attendee SN - CAt - Case Attendee SN - CAt - Role Performed Primary Surgeon SN - CAt - Role Performed Loft Worker Pile Driving 1 SN - CAt - Role Performed Scrub 1 SN - CAt - Role Performed Aws Developer 1 SN - CAt - Role Performed Physician Material Man SN - CAt - Role Performed Marketing Planner SN - CAt - Role Performed MANUFACTURING PLANNER 07/16/2023 7:35 EDT Heart Rate Monitored 60 bpm bpm Respiratory Rate - Anes 13 br/min br/min Systolic Blood Pressure Non-Invasive 139 mmHg mmHg Diastolic Blood Pressure Non-Invasive 75 mmHg mmHg Oxygen Saturation 90 % % 07/16/2023 7:30 EDT Temperature (Route Not Specified) 36 DegC DegC Heart Rate Monitored 53 bpm bpm Respiratory Rate - Anes 12 br/min br/min Systolic Blood Pressure Non-Invasive 146 mmHg mmHg Diastolic Blood Pressure Non-Invasive 77 mmHg mmHg Oxygen Saturation 97 % % 07/16/2023 7:25 EDT Heart Rate Monitored 49 bpm bpm Respiratory Rate - Anes 5 br/min br/min Systolic Blood Pressure Non-Invasive 177 mmHg mmHg Diastolic Blood Pressure Non-Invasive 81 mmHg mmHg Oxygen Saturation 96 % % 07/16/2023 7:20 EDT Respiratory Rate - Anes 0 br/min br/min Systolic Blood Pressure Non-Invasive 154 mmHg mmHg Diastolic Blood Pressure Non-Invasive 74 mmHg mmHg 07/16/2023 7:15 EDT Respiratory Rate - Anes 0 br/min br/min 07/16/2023 7:12 EDT SN - CTm - Anesthesia Start Time Anesthesia Start 07/16/2023 6:57 EDT Time Out Procedure Verified Time Out Procedure Site Verified Yes Time Out Procedure Site Marked Yes Consent Form Signed Yes Bedside Procedure Nerve Block Provider #1 Bedside Time Out LIVE RIVAS APRN-MANUFACTURING PLANNER Provider #2 Bedside Time Out Marianne Todd RN NPO Status Maintained Allergy Band on and Verified Yes Patient ID Band on and Verified Yes Anesthesia Consent Signed Yes Blood Consent Signed Yes 07/16/2023 6:39 EDT citric acid-sodium citrate Not Given: Other (Not Done) 07/16/2023 6:27 EDT IV Present Present Allergies Yes Anesthesia Extension Set Applied Yes Wellhead Pumper On Yes Consent Form Signed Yes Patient Dressed In Hospital gown Pre-op Preparation Jewelry removed, Undergarments removed CHG Preoperative Wash/Wipe Night before procedure, Day of procedure Preop Nasal Swab Povidone-Iodine History & Physical Update On Chart Yes History & Physical On Chart Yes Obstructive Sleep Apnea Assess Completed Yes Belongings At Bedside Transferred with patient Personal Home Medications Received No home medications were brought in Belongings Sent Home None Belongings Sent Home With Ring given to . Belongings to Security/Secured in Dept None NPO Status Maintained Allergy Band on and Verified Yes Blood Band on and Verified No Patient ID Band on and Verified Yes Implants Verified Yes Pacemaker/AICD Verified Yes Site Verified by Patient/Family Yes Anesthesia Consent Signed Yes Blood Consent Signed Yes Last Fluid Intake 07/16/2023 5:45 Last Food Intake 07/15/2023 21:45 Last Void 07/16/2023 6:00 07/16/2023 6:21 EDT SN - Preop - CTm Pt Ready for OR/Proced 07/16/2023 6:21 07/16/2023 6:21 EDT Primary Pain Intensity 0 oxyCODONE 10 mg mg Lactated Ringers Injection Begin Bag 1,000 mL mL 07/16/2023 6:14 EDT famotidine 20 mg mg 07/16/2023 6:09 EDT SN - Preop - CTm Pt in SDS Room 07/16/2023 5:42 07/16/2023 6:07 EDT Designated Person #1 We May Share PHI Designated Person #1 We May Share [facility] Designated Person #1 Relationship Spouse Privacy Restrictions Requested None Body Mass Index 26.75 kg/m2 Status N/A Sensory Deficits Hearing deficit, left ear, Hearing deficit, right ear Diagnosed With Sleep Apnea Yes Advanced Directives Yes Advance Directive Type [place] Durable Power of Pool Attendant for [facility], [place] Declaration (Living Will) Advance Directive Location Patient instructed to bring in copy Infectious Disease Symptoms Patient states no symptoms Infectious Disease Recent Exposure No Alcohol and Drug Use No Employee of Institutional Living No Health Care Employee No History of Exposure to TB No History of Positive Chest X-Ray for TB No History of Positive TB Skin Test No Homeless No Known Immunosuppression No Recent Immigrant No Resident of Institutional Living No Bloody Sputum No Fatigue No Fever No Loss of Appetite No Night Sweats No Persistent Cough > 3 Weeks No Weight Loss No Patient Aware Date/Time Of Surgery Yes Previous Surgery At This Facility Yes Pre-Op Patient Education NPO after midnight, No jewelry, Responsible Libertarian, Aware of surgery location, Pre-op education done, 1 bottle CHG wash with instructions given, Instructed to take ordered medications, Total Joint Replacement/Colorectal Book Given, SSI prevention handout given, Anesthesia blo ck education provided SN - Preprocedure Comments Spoke with patient, Verbalizes/Nonverbally indicates understanding, Other: LEVOTHYROXINE, METOPROLOL, BRING INHALER AND CPAP Anesthesia Evaluation Date/Time 06/26/2023 14:45 Anesthesia Evaluation Performed By AYDIN CELESTIN SPRAY I PAINTER-MANUFACTURING PLANNER Anesthesia Evaluation Result Approved Individuals Taught Patient, Spouse Learning Readiness Willing to learn Barriers to Learning None evident Teaching Method Explanation Preferred Spoken Language [place] Preferred Written Language [place] Teaching Evaluation Needs reinforcement Total Joint Book Given Yes Safety Brochure Information Reviewed Unable to complete Dawit Anderson Video Viewed Yes Information Given by Patient Patient's Current Physicians Patient's Current Physicians Discharge To, Anticipated Home independently Prev Test Positive/Diagnosis w/COVID-19 No Current Quarantine/Isolated any Illness No Any Contact with Sick Animals/Birds No Traveled Anywhere in Last 30 Days No Lost Weight Unintentionally Recently No Eat Poorly Due to Decreased Appetite No Total MST Score 0 N/A Personal Devices, Patient Valuables Dentures, partial plate Anesthesia/Transfusions Prior anesthesia Admission Note-Nursing Same Day Patient History 07/16/2023 6:05 EDT Continuous IV Infusions LR Forearm Right 07/16/2023 20 gauge Peripheral IV Activity: Insert new site Peripheral IV Dressing Condition: Clean, Dry, Intact Peripheral IV Dressing Activity: Applied, Transparent dressing Peripheral IV Line Status/Patency: Continuous infusion Peripheral IV Line Care: Secured with tape Peripheral IV Site Condition: No complications Peripheral IV Equipment: Extension set Peripheral IV Number of Attempts: 1 07/16/2023 6:04 EDT Lactated Ringers Injection 1,000 mL mL 07/16/2023 6:02 EDT ABO/Rh Interp O POS ABSC Interp (Gel) Negative ABSC 07/16/2023 5:43 EDT Height 182.9 cm Admission Weight 89.5 kg Honeydew Body Weight 77.62 kg Admission Body Mass Index 26.75 m2 Temperature Temporal Artery 36.4 DegC Apical Heart Rate 59 bpm LOW Respiratory Rate 18 br/min Systolic Blood Pressure Non-Invasive 178 mmHg HI Diastolic Blood Pressure Non-Invasive 93 mmHg HI Primary Pain Intensity 0 Pain Scale Type 0-10 Pain scale Heart Sounds ICU Murmur Heart Rhythm Regular Dorsalis Pedis Pulse, Left 1+ Thready Dorsalis Pedis Pulse, Right 2+ Normal Respirations Unlabored All Lobes Breath Sounds Clear Oxygen Therapy Room air Oxygen Saturation 96 % Abdomen Description Non-distended Bowel Sounds All Quadrants Present Urinary Elimination Voiding, no difficulties Skin Temperature Warm Skin Description Black Hat, Dry Skin Integrity Intact Mucous Membrane Color Black Hat Skin Moisture General Dry Characteristics of Speech Clear Level of Consciousness Alert Strength All Extremities Strong Affect/Behavior Appropriate, Calm, Cooperative Orientation Oriented x 4 Patient Identified Identification band, Verbal Arrival Mode Ambulatory Ravi Motor (2) Moves 4 extremities voluntarily or on command Ravi Respirations (2) Spontaneous respiration without support, RR > 10 Ravi Blood Pressure (2) BP 20% above or below preanesthetic level Ravi Pulse (2) Pulse 20% above or below preanesthetic level Ravi Oxygen Saturation (2) 94% or more Ravi Level of Consciousness (2) Fully awake Ravi III Score 12 Assistive Device Cane, Walker Sequential Compression Device right knee high applied/on Antiembolism Stocking On/Re-applied right thigh high Standard Safety ID band on, Allergy Band on, Call device within reach, Bed in low position, Wheels locked, Non-Slip footwear . Assessment and Plan [place] Society of Anesthesiologists (ASA) physical status classification: Class III. Anesthetic Preoperative Plan Anesthetic technique: Spinal. Postoperative pain management: adductor. Informed consent: signed by patient. Digitally Signed by LIVE RIVAS on 07/16/2023 07:43 AM [facility]04-10-2024 Note ORIGINAL EXAMINATION: CT OF THE LEFT KNEE WITHOUT CONTRAST 06/26/2023 3:19 pm TECHNIQUE: CT of the left knee was performed without the administration of intravenous contrast. Multiplanar reformatted images are provided for review. Automated exposure control, iterative reconstruction, and/or weight based adjustment of the mA/kV was utilized to reduce the radiation dose to as low as reasonably achievable. COMPARISON: None. HISTORY ORDERING SYSTEM PROVIDED HISTORY: Reason for Exam: Unilateral primary osteoarthritis, left knee FINDINGS: Survey images left hip: Degenerative changes. No aggressive lesion. Vascular calcifications identified. No suspicious findings seen in the soft tissues. Knee: Tricompartmental joint space narrowing and spurring visualized. Findings are most prevalent in the medial tibiofemoral compartment. A moderate joint effusion seen. Patellar enthesophytes noted. Atherosclerosis. Ankle: No aggressive bony lesions. There are likely surgical changes in the distal fibula. Calcaneal enthesophytes. Chronic posttraumatic ossicles noted vascular calcifications. IMPRESSION: 1. Tricompartmental osteoarthritis of the left knee, most prevalent in the medial tibiofemoral compartment. 2. Moderate joint effusion. 3. Other incidental findings as above. Interpreted by: Jose Worthy MD Preliminary Report By: Jose Worthy MD Electronically signed By Jose Worthy MD Dictated Date: 06/26/2023 3:30:07 PM Prelim Date: 06/26/2023 3:35:03 PM Sign Date: 06/26/2023 3:35:03 PM Ordering Provider: [facility]06-26-2023 History and physical note Author [facility] September 10, 2022 12:22pm Note Date/Time September 10, 2022 12:2 2pm [facility] Medical Records Department [address] [place] [id number] History & Physical Exam 09/10/22 1222 MR#: [id number] Acct: [id number] Name: ESTEFANIAJaradCARLEE JULIAN Rep #:[id number] : 1945 76 From: Carlos Enrique VALDEZ PA-C PCP: Dr. Fox Fischer MD Status:PRE [facility] Location: [facility] [place] History and Physical History and Physical? Patient Name: Carlee NamanMadiha Ngozi : 1945 From:? CARLOS ENRIQUE COFFMAN PA-C? DATE OF SURGERY:? 10/03/2022 SCHEDULED PROCEDURE:? Left partial knee replacement versus total knee arthroplasty HISTORY OF PRESENT ILLNESS: Preoperative history and physical exam was performed on September 10, 2022.? This is a 76-year-old male who is been having ongoing pain in his left knee for several years.? Patient has had a previous left knee injury in 1996 that was treated with arthroscopic surgery.? Patient has had previous Euflexxa injections in 2018which gave 2-3 months relief.? Patient has had increased pain in the knee over the past several years.? Pain is increased with walking, steps, and sitting.? Pain is located over the medial joint line.? Patient has tried [id number] medications including Tylenol without relief.? Patient feels unsafe climbing ladders.? He has difficulty with leisure activities such as hiking secondary to the pain.? Patient has had a previous left knee MRI in 2018 which did show post partial medial meniscectomy with full-thickness articular cartilage loss in the medial femoral tibial compartment.? After failure of conservative measures and discussion with Dr. Misti Shirley, the patient does wish to proceed with a left knee partial knee replacement versus total knee arthroplasty.? Patient has a medical history pertinent for hypertension, chronic obstructive pulmonary disease, enlarged prostate, chronic kidney disease, and previous heart stents.? We have obtain surgical clearance from the primary care provider Dr. Fischer.? We are reaching out for clearance from the cardiopulmonary technician and eeg tech at the [facility].? Patient denies past history of DVT or pulmonary embolism.? No recent chest pain or shortness of breath.? He also reports that he sees a specialist for his kidney disease.? He is also seen derrick boat captain Dr. Rivers in the past.? He has never required use of oxygen in the past. REVIEW OF SYSTEMS: Review Of Systems: Constitutional: Denies change in appetite, fever,or weight change. Cardiovasular: Reports heart murmur, but denies chest pain and irregular heartbeat. Respiratory: Denies cough, pneumonia, shortness of breath, tuberculosis and wheezing. Gastrointestinal: Denies constipation, diarrhea, heartburn, nausea, rectal itching, bloody stools and vomiting. Genitourinary: Denies incontinence. Musculoskeletal: Denies leg swelling, pain, trouble walking and weakness. Skin: Denies Raynaud's, history of shingles and tattoo. Neurological: Denies ambulatory dysfunction, dizziness, numbness/tingling and tremor. Psychiatric: Denies anxiety, insomnia and stress. Hematologic/Lymphatic: Denies anemia, bleeding/bruising tendency and past transfusion. Reviewed and updated. PAST MEDICAL HISTORY: Advance Care Plan: Other Directive, POA Effective Date: 05/09/2017 Other Directive, LIVING WILL Effective Date: 05/09/2017 Past Medical History: Medical Problems: Arthritis, Hard of Hearing, High Blood Pressure, Hypercholesterolemia, Kidney Stones, Chronic Obstructive Pulmonary Disease (COPD), Emphysema, Enlarged Prostate, Chronic Kidney Disease, Thyroid Disease Accidents: None Surgical Hx: Knee Arthroscopy Rt, Knee Arthroscopy Lt, Cataracts, Retnal Eye SX, Biopsy Of Kidneys, Heart Stent, Hernia Repair Anesthesia Complications: None Assistive Devices: Glasses, Dentures Reviewed and updated. SOCIAL HISTORY: Social History: Marital: .Occupation: Retired.Work Status: Retired.Hand Dominance: Right-handed. Personal Habits:? Cigarette Use: Former Cigarette Smoker.Smokeless Tobacco: Never Used Smokeless Tobacco.E-Cigarette Use: Never used.Alcohol: Weekly use.Drug Use: Denies Use.Enjoy Exercising: Daily. Reviewed, no changes. VITALS: Ht: 72.5 Wt: 200lb Wt k.720 BMI: 26.7 BP: 160/82 Pulse: 73 Resp: 12 T: 98.2 T: 36.8C Pain Level: 1 O2SatR: 99 ALLERGIES: Iodine Iodine IVP Dye? MEDICATIONS: Tamsulosin HCL 0.4 mg Once daily, Ezetimibe 10 mg Once daily, Metoprolol Tartrate 25 mg 1/2 pill twice a day, Gemfibrozil 600 mg Twice a day, Levothyroxine Sodium 25 mcg Once a day, Aspirin Low Dose 81 mg Once every other day, Multi Vitamin? Once a day, Potassium 99 mg Once every other day PRE-OP EXAM:? General appearance:NORMAL? ? ? Other: Eyes: Conjunctivae and lids: NORMAL? Pupils: ERR Ears, Nose, Mouth, and Throat: NORMAL? Other: Inspection of lips, teeth and gums: NORMAL? ?Other: Neck: Examination of neck: no masses noted. Respiratory: Assessment of respiratory effort: NORMAL? ?Other: ?Auscultation of lungs: clear to auscultation no wheezes, rhonchi or rales. Cardiovascular:? Auscultation of heart: regular rate and rhythm, no murmurs, gallops or rubs. PHYSICAL EXAMINATION: Patient does walk with an antalgic gait.? Left knee has mild effusion.? There istenderness to palpation along the medial joint line.? Range of motion: Lacks 5 full extension to 122 flexion.? Patient has partial correctability with varus alignment.? Stable to anterior/posterior drawer exam with firm endpoint. IMAGING STUDIES: Previous x-rays of the left knee reveal varus alignment with medial joint space narrowing, subchondral sclerosis, osteophyte formation consistent with severe stage IV [id number] erosive osteoarthritis of the medial compartment.? Medial stress examination was also previously performed which showed correction of the alignment with mormon of the medial joint space and maintain lateral joint space. IMPRESSION: 1.? 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 Hypertension 3.? Hypercholesterolemia 4.? Chronic obstructive pulmonary disease 5.? History kidney stones 6.? Chronic kidney disease 7.? Thyroid disease 8.? Enlarged prostate 9.? History of heart stents PLAN: Dr. Misti Shirley did discuss and review with the patient all treatment options including surgical versus nonsurgical options.? Patient does wish to proceed with the above-stated procedure.? Potential risks, benefits, and complications of the procedure were discussed in detail including but not limited to , infection, nerve and blood vessel damage, persistent pain, numbness, tingling, paresthesias, blood clot, pulmonary embolism, and requirement for possible further surgery.? The patient expressed full understanding and has no further questions for the doctor.? Patient does agree to proceed with the above-stated procedure and has signed the surgery consent form. POST-OP MEDICATION PLAN: Pain Medications: Patient reports he is not to take nonsteroidal anti-inflammatories.? He does have underlying chronic kidney disease. DVT Prophylaxis: Aspirin 81 mg twice daily for 4 weeks postoperatively.? Denies past history of DVT or pulmonary embolism This dictation was created using voice recognition software. Phonetic and/or grammatical errors may exist. ___? I have re-examined the patient.? There are no clinical changes since date of exam. ___? See progress notes for changes. ___? Dictated on admission Date: ? ? ?Time: Signature: 09/10/22 1222 <Electronically signed by Carlos Enrique VALDEZ PA-C> Cosigner Signature (if applicable): CC: JOVANNY Coffman; Dr. 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 Nonrheumatic aortic (valve) stenosis acute [id number] chronic Atherosclerotic heart diseas e of [place] coronary artery without angina pectoris chronic CKD (chronic kidney disease) chronic Essential hypertension chron ic Hyperlipidemia chronic MARIBELL (obstructive sleep apnea) [facility] Work Phone: Evaluation note* Diagnosis Onset Date Resolution Status Nonrheumatic aortic (valve) stenosis acute [id number] chronic Atherosclerotic heart diseas e of [place] coronary artery without angina pectoris chronic CKD (chronic kidney disease) chronic Essential hypertension chron ic Hyperlipidemia chronic MARIBELL (obstructive sleep apnea) [facility] Work Phone: Evaluation noteNo assessment information available [facility] Work Phone: Hospital course Narrative No data available for this section [facility] Hospital Discharge instructions No data available for this section [facility] Progress note No data available for this section [facility] Reason for referral (narrative)No reason for referral information availableMagr[facility] Work Phone: Summary Purpose Family History No Family History Records Found Relationship Condition Age at Onset Recorded Date/T adelso father Coronary artery disease Unknown Myocardial infarction 59 Pulmonary embolism Unknown Deep vein thrombosis (DVT) Unknown Advance Directives No Advanced Directives Records Found Advance Directive Response Recorded Date/ Time Living Will Yes August 19, 2018 1 :23pm Power of Pool Attendant Yes August 19, 2018 1:23pm Advance Directive Response Recorded Date/ Time Living Will Yes September 12, 2022 11:28am Power of Pool Attendant Yes September 12 11:28am Advance Directive Response Recorded Date/ Time Name of Medical Power of Pool Attendant ARUN LEE September 12, 2022 11:28am Living Will Yes September 12, 2022 11:28am Power of Pool Attendant Yes September 12 11:28am Chief Complaint and Reason for Visit Chief Complaint 6 m fu Reason for Visit Nonrheumatic aortic (valve) stenosis Atherosclerotic heart disease of [place] coronary artery without angina pectoris Essential hypertension Hyperlipidemia Chief Complaint 6 m fu Blood Flow Screening - Oil Well Logger Reason for Visit Nonrheumatic aortic (valve) stenosis Atherosclerotic heart disease of [place] coronary artery without angina pectoris Essential hypertension Hyperlipidemia Chief Complaint 6 m fu Blood Flow Screening - Oil Well Logger ACUTE KIDNEY FAILURE SCREENING Reason for Visit Nonrheumatic aortic (valve) stenosis Atherosclerotic heart disease of [place] coronary artery without angina pectoris Essential hypertension Hyperlipidemia Chief Complaint 6 m fu Blood Flow Screening - Oil Well Logger ACUTE KIDNEY FAILURE SCREENING CLAUDICATION Reason for Visit Nonrheumatic aortic (valve) stenosis Atherosclerotic heart disease of [place] coronary artery without angina pectoris Essential hypertension Hyperlipidemia Chief Complaint 1 Y FU 6 M FU Reason for Visit Mass of upper lobe o f left lung MARIBELL (obstructive sleep apnea) Stage 2 moderate COPD by GOLD classification Nonrheumatic aortic (valve) stenosis [id number] Atherosclerotic heart disease of [place] coronary artery without angina pectoris CKD (chronic kidney disease) Essential hypertension Hyperlipidemia MARIBELL (obstructive sleep apnea) Chief Complaint 6 M FU Reason for Visit Nonrheumatic aortic (valve) stenosis [id number] Atherosclerotic heart disease of [place] coronary artery without angina pectoris CKD (chronic kidney disease) Essential hypertension Hyperlipidemia MARIBELL (obstructive sleep apnea) Chief Complaint LT KNEE PAIN *DIANE* Chief Complaint LT KNEE PAIN *DIANE* lt robotic knee partial vs total Chief Complaint LT KNEE PAIN *DIANE* lt robotic knee partial vs total Cutaneous abscess of left foot Chief Complaint 6 M FU Neoplasm of uncertain behavior of right kidney Reason for Visit Nonrheumatic aortic (valve) stenosis [id number] Atherosclerotic heart disease of [place] coronary artery without angina pectoris CKD (chronic kidney disease) Essential hypertension Hyperlipidemia MARIBELL (obstructive sleep apnea) Chief Complaint Admit Date 1 Y FU May 08, 2024 11:05am Reason for Visit Admit Date MARIBELL (obstructive sleep apnea) April 192024 11:05am Stage 2 moderate COPD by GOLD classifica tion May 08, 2024 11:05am Chief Complaint Admit Date 1 Y FU May 08, 2024 11:05am 6 M FU August 13, 2024 8:24a m Reason for Visit Admit Date MARIBELL (obstructive sleep apnea) April 192024 11:05am Stage 2 moderate COPD by GOLD classifica tion May 08, 2024 11:05am Dyspnea on exertion August 13, 2024 8:24a m Nonrheumatic aortic (valve) stenosis August 13, 2024 8:24am Atherosclerotic heart diseas e of [place] coronary artery without angina pectoris August 13, 2024 8:24am Essential hypertension August 13, 2024 8: 24am Hyperlipidemia August 13, 2024 8:24a m Additional Source Comments (unrecognized sect ion and content) No Status Records FoundNo Status Records FoundNo Status Records Found INFORMATION SOURCE (unrecogn ized section and content) DATE CREATED AUTHOR 09/05/2017 [facility] DATE CREATED AUTHOR AUTHOR'S ORGANIZ ATION 07/28/2023 [facility] ([place]) DATE CREATED AUTHOR AUTHOR'S ORGANIZ ATION 08/15/2024 [facility] Goals (unrecognized section and content) Goals may be documented in a n alternate sectionGoals may be documented in an alternate sectionGoals may be documented in an alternate sectionGoals may be documented in an alternate sectionGoals may be documented in an alternate sectionGoals may be documented in an alternate sectionGoals may be documented in an alternate sectionGoals may be documented in an alternate sectionGoals may be documented in an alternate sectionGoals may be documented in an alternate sectionGoals may be documented in an alternate section No data available for this section No data available for this sectionGoals may be documented in an alternate section No data available for this sectionGoals may be documented in an alternate sectionGoals may be documented in an alternate sectionGoals may be documented in an alternate section Care Teams (unrecognized sec tion and content) Team Status: Active Member Role Status Dates Dr. Fox Fischer MD Family Provider Active Dr. Fox Fischer MD Primary Care Provider Active Team Status: Inactive Member Role Status Dates Dr. Fox Fischer MD Primary Care Provider, Referring Provider Active Aleja Mullins PA, PA Attending Provider Active Team Status: Inactive Member Role Status Dates Dr. Fox Fischer MD Primary Care Provider, Referring Provider Active Dr. Ahsan Rivers MD Attending Provider Active Team Status: Inactive Member Role Status Dates Dr. Fox Fischer MD Primary Care Provider Active Dr. Amita Brenner DO Attending Provider, Referring P rovider Active Team Status: Inactive Member Role Status Dates Dr. Fox Fischer MD Primary Care Provider, Attending Provider Active Team Status: Active Member Role Status Dates Dr. Fox Fischer MD Primary Care Provider Active Dr. Ciaran Vazquez MD Attending Provider, Referr ing Provider Active Team Status: Inactive Member Role Status Dates Dr. Fox Fischer MD Primary Care Provider Active Dr. Misti Shirley MD Attending Provider, Referring P rovider Active Team Status: Inactive Member Role Status Dates Dr. Fox Fischer MD Primary Care Provider Active Dr. Ciaran Vazquez MD Attending Provider, Referr ing Provider Active Team Status: Inactive Member Role Status Dates Dr. Fox Fischer MD Primary Care Provi mango, Attending Provider, Referring Provider Active Team Status: Inactive Member Role Status Dates Dr. Fox Fischer MD Primary Care Provi mango, Attending Provider, Referring Provider Active Dr. Adore Brenner MD Other Provider Active Team Status: Active Member Role Status Dates Dr. Fox Fischer MD Primary Care Provi mango, Attending Provider, Referring Provider Active Team Status: Inactive Member Role Status Dates Dr. Fox Fischer MD Primary Care Provi mango, Attending Provider, Referring Provider Active Malgorzata Maguire Other Provider Active Team Status: Inactive Member Role Status Dates Dr. Fox Fischer MD Primary Care Provider Active Start: May 08, 2024 End: May 08, 2024 Dr. Fox Fischer MD Referring Provider Active Start: May 08, 2024 End: May 08, 2024 Pam Patel [employer]ECUTIVE, [employer] EXECUTIVE-C Attending Provider Active Start: May 08, 2024 End: May 08, 2024 Team Status: Inactive Member Role Status Dates Dr. Fox Fischer MD Primary Care Provider Active Start: July 02, 2024 End: July 02, 2024 Dr. Fox Fischer MD Attending Provider Active Start: July 02, 2024 End: July 02, 2024 Dr. Fox Fischer MD Referring Provider Active Start: July 02, 2024 End: July 02, 2024 Team Status: Active Member Role Status Dates Dr. Fox Fischer MD Primary Care Provider Active Team Status: Inactive Member Role Status Dates Dr. Fox Fischer MD Primary Care Provider Active Start: August 13, 2024 End: August 13, 2024 Dr. Fox Fischer MD Referring Provider Active Start: August 13, 2024 End: August 13, 2024 No Pete NP, [employer] SAL[employer] EXECUTIVE-C Attending Provider Active Start: August 13, 2024 End: August 13, 2024 FOR RECORDS PERTAINING TO PATIENTS WHO ARE OR HAVE BEEN ENROLLED IN A CHEMICAL DEPENDENCY/SUBSTANCEABUSE PROGRAM, SOME INFORMATION MAY BE OMITTED. This clinical summary was aggregated from multiple sources. Caution should be exercised in using it in the provision of clinical care. This summary normalizes information from multiple sources, and as a consequence, information in this document may materially change the coding, format and clinical context of patient data. In addition, data may be omitted in some cases. CLINICAL DECISIONS SHOULD BE BASED ON THE PRIMARY CLINICAL RECORDS. [employer] provides no warranty or guarantee of the accuracy or completeness of information in this document.
--- OUTSIDE RECORDS SUMMARY | 2024-12-31 09:44 | XMS RPT_ITS | CCD ---
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 Fox Fischer Chi Primary Care Provider Juan, Dr. Fox Pereyra Referring Provider COURTNEY Apple Attending Provider Juan, Dr. Fox Pereyra Primary Care Provider Juan, Dr. Fox Pereyra Referring Provider Dr. Ahsan Rivers Attending Provider [phone]([facility])[phone] COURTNEY Apple Attending Provider Juan, Dr. Fox Pereyra Primary Care Provider Juan, Dr. Fox Pereyra Referring Provider JUAN ESTRELLA, DR MEZA Primary Care Physician Juan, Dr. Fox Pereyra Primary Care Provider Juan, Dr. Fox Pereyra Referring Provider COURTNEY Apple Attending Provider MISTI SHIRLEY Attending Unavailable JUAN ESTRELLA, DR MEZA Primary Care Unavailable MISTI SHIRLEY Attending Arei FISCHER MD, DR MEZA Primary Care Unavailable MISTI SHIRLEY Attending Arie FISCHER MD, DR MEZA Primary Care Unavailable Juan ESTRELLA, Dr. Fox Pereyra Primary Care Provider Juan ESTRELLA, Dr. Fox Pereyra Referring Provider Jorge MACARIO-CPam Attending Provider Juan ESTRELLA, Dr. Fox Pereyra Attending Provider [phone] Juan R MACARIO-CNo Attending Provider 1([facility])[phone] Amita Brenner Attending Unavailable Amita Brenner Referring Unavailable Juan, Fox Chi Primary Care Unavailable Juan, Fox Chi Attending Unavailable Juan, Fox Chi Referring [...] Unavailable Taylor, Jamison Consulting Unavailable Juan R ONLINE AFFILIATE MARKETING MANAGER, 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 Juan, Fox Chi Referring Unavailable Juan, Fox Chi Primary Care Unavailable Juan, Fox Chi Attending Unavailable Juan, Fox Chi Primary Care Unavailable Allergies Allergy Classification Reported Allergen(s) Allergy Type Date of Onset Reaction(s) Facility (1 source) Contrast media; Translations: [CONTRAST DYE] Propensity to adverse reactions to drug (disorder) 2 [facility] Repository (1 source) onion extract; Translations: [ONION] Drug Allergy 2 [facility] Repository (15 sources) Losartan Drug Allergy 2 Severe hypotension and near syncope [facility] (18 sources) Petrolatum; Translations: [petrolatum topical] Drug Allergy 2 Other [facility] (16 sources) Iodine and Iodide Containing Produc; Translations: [Iodine and Iodide Containing Produc] Allergy to substance 2 Itching [facility] (16 sources) Gfnfuxx-Sin-Vbm Reductase Inhibitor; Translations: [Jfxebey-Uov-Gd a Reductase Inhibitor] Propensity to adverse reactions 2 Other [facility] (10 sources) Shellfish; Translations: [shellfish derived] Allergy to substance 3 Itching [facility] (5 sources) ONIONS Allergy to substance 3 Food Allergy [facility] (8 sources) Food Allergies: Uncoded; Translations: [Food Allergies: Uncoded] Allergy to substance 3 Rash [facility] Comment on above: Onions (3 sources) Adhesive Tape Drug allergy [facility] (3 sources) Contrast media Drug allergy ITCHING [facility] (3 sources) HMG-CoA reductase inhibitor; Translations: [statins] Drug allergy [facility] (3 sources) Shellfish Food allergy [facility] (3 sources) Triple antibiotic ointment to site Drug allergy [facility] (1 source) Losartan Drug Allergy 5 [facility] Repository (1 source) Petrolatum Drug Allergy 5 [facility] Repository Medications Current Medications Medication Drug [...] Ordered Start: 04-27-2020 take 1 capsule by [facility] once daily Levothyroxine 25 mcg capsule [...] Refill(s) Start Date: 06/26/23 Status: Ordered Vitamins A,C,V-Iokh-Qoglmg (Preservision Areds) 4,296 mcg-226 mg-90 mg capsule (2 sources) Start: 02-03-2024 Vitamins A,C,V-Pqku-Lpqcci (Preservision Areds) 4,296 mcg-226 mg-90 mg capsule Active 1 NMA PO TWICE A DAY February 03, 2024 1:00am Completed/Discontinued Medications Medication Drug Class(es) Dates Sig (Normalized) Sig (Original) [id number] 200 actuat albuterol 0.09 mg/actuat metered dose [...] Coronary atherosclerosis; Translations: [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 pectoris] Onset: 4 Chronic Comment on above: Successful PTCA/SANTI mid LAD with a 2.25 x 16 Promus Synergy, followed immediately upstream with a 2.25 x 28 Promus Synergy 08/07/18 per DJN @ [facility] Disorders of lipid metabolism (20 sources) Hyperlipidemia; [...] artery of lower limb; Translations: [Atherosclerosis of [place] arteries of extremities with intermittent claudication, left [...] 2.25 x 28 Promus Synergy 08/07/18 @ [facility] per DJN Fluid and electrolyte disorders (12 [...] Facility Cardiology Visit Reporton Cardiology Visit Report [facility] 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: No Accompanied by: Self Is patient in pain?: No Allergies Food Allergies: Uncoded Allergy (Verified 08/13/24 08:40) Rash Iodine and Iodide Containing Produc Allergy (Verified 08/13/24 08:40) Itching shellfish derived Allergy (Verified 08/13/24 08:40) Itching losartan Adverse Reaction (Severe, Verified 08/13/24 08:40) Severe hypotension and near syncope petrolatum,white (From Petroleum Jelly) Adverse Reaction (Verified 08/13/24 08:40) Other Mxgfuzt-DMI-OpP Reductase Inhibitor (Vvohfga-Prp-Ncj Reductase Inhibitor) Adverse Reaction (Verified 08/13/24 08:40) [...] PO QDAY 02/03/24 08/13/24 His tory vitamins A,C,T-vdmu-rpqnnb 4,296 1 cap PO BID 02/03/24 08/13/24 [...] the past year?: No PFSH Medical History (Reviewed 08/13/24 @ 08:40 by No Pete ONLINE AFFILIATE MARKETING MANAGER, ONLINE AFFILIATE MARKETING MANAGER-C) Wears glasses Wears partial dentures Cancer Alcohol [...] Hyperlipidemia Essential hypertension 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 pectoris Atypical chest pain Subacute bronchitis Surgical History (Reviewed 08/13/24 @ 08:40 by No Pete ONLINE AFFILIATE MARKETING MANAGER, ONLINE AFFILIATE MARKETING MANAGER-C) H/O knee surgery History of hernia surgery History of coronary artery stent placement History of cardiac catheterization H/O vitrectomy (09/2019) H/O bilateral inguinal hernia repair Stented coronary artery (08/07/18) Family History Father CAD (coronary artery disease) Myocardial infarction, Onset Age: 61 Pulmonary embolus DVT (de (more content not included)... Normal [facility] Absolute lymphocyte countOrd ered By: Fox Fischer on 07-02-2024 Lymphocytes Auto (Unsp spec) [#/Vol] 1.93 10*3/uL 0.83-4.51 [facility] Absolute neutrophil countOrd ered By: Fox Fischer on 07-02-2024 Neutrophils (Bld) [#/Vol] 3.0 10*3/uL 2.0-7.7 [facility] Anion gap in Serum or Plasma Ordered By: Fox Fischer on 07-02-2024 Anion gap [Moles/Vol] 13 mmol/L 5-15 [facility] Automated lymphocyte count a s percentage of total leukocytesOrdered By: Fox Fischer on 07-02-2024 Lymphocytes/100 WBC Auto (Unsp spec) 31.7 % 19-41 [facility] BUN/creatinine ratioOrdered By: Fox Fischer on 07-02-2024 Urea nitrogen/Creatinine [Mass ratio] 12.2 mg/mg 10-20 [facility] Basophil percentageOrdered B y: Fox Fischer on 07-02-2024 Basophils/100 WBC (Bld) 0.8 % 0-1 [facility] Bilirubin, totalOrdered By: Fox Fischer on 07-02-2024 Bilirubin [Mass/Vol] 0.45 mg/dL 0.00-1.30 [facility] CBC W/Diff, Automatedon 06-16 Absolute Lymph 1.93 X10 3/uL Normal 0.83-4.51 [facility] Comment on above: Performed By: #### L 500.4050, L100.0100, L500.4100, L506.1001, L501.9520 #### [facility] [address] [place], [address] Absolute Neut 3.0 X10 3/uL Normal 2.0-7.7 [facility] Comment on above: Performed By: #### L 500.4050, L100.0100, L500.4100, L506.1001, L501.9520 #### [facility] [address] [place], [address] Basophils/100 WBC (Bld) 0.8 % Normal 0-1 [facility] Comment on above: Performed By: #### L 500.4050, L100.0100, L500.4100, L506.1001, L501.9520 #### [facility] [address] [place], [address] Eosinophils/100 WBC (Bld) 8.0 % High 0-5 [facility] Comment on above: Performed By: #### L 500.4050, L100.0100, L500.4100, L506.1001, L501.9520 #### [facility] [address] [place], [address] Erythrocyte distribution width (RBC) [Ratio] 12.7 % Normal 11.6-14.6 [facility] Comment on above: Performed By: #### L 500.4050, L100.0100, L500.4100, L506.1001, L501.9520 #### [facility] [address] [place], [address] Hematocrit (Bld) [Volume fraction] 42.5 % Normal 40-54 [facility] Comment on above: Performed By: #### L 500.4050, L100.0100, L500.4100, L506.1001, L501.9520 #### [facility] [address] [place], [address] Hemoglobin (Bld) [Mass/Vol] 14.4 g/dL Normal 13.0-16.5 [facility] Comment on above: Performed By: #### L 500.4050, L100.0100, L500.4100, L506.1001, L501.9520 #### [facility] [address] [place], [address] IG% 0.700 Normal 0.0-0.9 [facility] Comment on above: Result Comment: IG% - Immature Granulocytes (promyelocytes, myelocytes and metamyelocytes) > 1% indicates that a LEFT SHIFT is Present. Performed By: #### L 500.4050, L100.0100, L500.4100, L506.1001, L501.9520 #### [facility] [address] [place], [address] Lymphocytes/100 WBC (Bld) 31.7 % Normal 19-41 [facility] Comment on above: Performed By: #### L 500.4050, L100.0100, L500.4100, L506.1001, L501.9520 #### [facility] [address] [place], [address] MCH (RBC) [Entitic mass] 31.6 pg Normal 27.0-32.0 [facility] Comment on above: Performed By: #### L 500.4050, L100.0100, L500.4100, L506.1001, L501.9520 #### [facility] [address] [place], [address] MCHC (RBC) [Mass/Vol] 33.9 g/dL Normal 32-36 [facility] Comment on above: Performed By: #### L 500.4050, L100.0100, L500.4100, L506.1001, L501.9520 #### [facility] [address] [place], [address] MCV (RBC) [Entitic vol] 93.4 fL Normal 80-94 [facility] Comment on above: Performed By: #### L 500.4050, L100.0100, L500.4100, L506.1001, L501.9520 #### [facility] [address] [place], [address] Monocytes/100 WBC (Bld) 8.9 % Normal 0-10 [facility] Comment on above: Performed By: #### L 500.4050, L100.0100, L500.4100, L506.1001, L501.9520 #### [facility] [address] [place], [address] Neutrophils/100 WBC (Bld) 49.9 % Normal 47-70 [facility] Comment on above: Performed By: #### L 500.4050, L100.0100, L500.4100, L506.1001, L501.9520 #### [facility] [address] [place], [address] Nucleated RBC (Bld) [#/Vol] 0 10*3/uL Normal 0-5 [facility] Comment on above: Performed By: #### L 500.4050, L100.0100, L500.4100, L506.1001, L501.9520 #### [facility] [address] [place], [address] Platelet mean volume (Bld) [Entitic vol] 9.9 fL Normal 6.2-12.0 [facility] Comment on above: Performed By: #### L 500.4050, L100.0100, L500.4100, L506.1001, L501.9520 #### [facility] [address] [place], [address] Platelets (Bld) [#/Vol] 215 10*3/uL Normal 150-450 [facility] Comment on above: Performed By: #### L 500.4050, L100.0100, L500.4100, L506.1001, L501.9520 #### [facility] [address] [place], [address] RBC (Bld) [#/Vol] 4.55 10*6/uL Low 4.6-6.2 [facility] Comment on above: Performed By: #### L 500.4050, L100.0100, L500.4100, L506.1001, L501.9520 #### [facility] [address] [place], [address] RDW SD 43.7 fl Normal 35.1-43.9 [facility] Comment on above: Performed By: #### L 500.4050, L100.0100, L500.4100, L506.1001, L501.9520 #### [facility] [address] [place], [address] WBC (Bld) [#/Vol] 6.1 10*3/uL Normal 4.4-11.0 [facility] Comment on above: Performed By: #### L 500.4050, L100.0100, L500.4100, L506.1001, L501.9520 #### [facility] [address] [place], [address] Calculated very low density lipoprotein (VLDL) cholesterol measurementOrdered By: Fox Fischer on 07-02-2024 Calculated very low density lipoprotein (VLDL) cholesterol measurement 26 mg/dL -40 [facility] VLDL Cholesterol 26 mg/dL -40 [facility] Carbon dioxide, total [Moles /volume] in Central venous bloodOrdered By: Fox Fischer on 07-02-2024 CO2 [Moles/Vol] 24.5 mmol/L 21.0-32.0 [facility] Chloride assayOrdered By: Jaciel Fischer on 07-02-2024 Chloride [Moles/Vol] 104 mmol/L 98-108 [facility] Comprehensive Metabolic Prof ilon 07-02-2024 Albumin [Mass/Vol] 4.8 g/dL Normal 3.4-4.8 [facility] Comment on above: Performed By: #### L 500.4050, L100.0100, L500.4100, L506.1001, L501.9520 #### [facility] [address] [place], [address] Albumin/Globulin [Mass ratio] 1.6 {ratio} Normal 0.9-2.4 [facility] Comment on above: Performed By: #### L 500.4050, L100.0100, L500.4100, L506.1001, L501.9520 #### [facility] [address] [place], [address] ALK PHOS 75 U/L Normal 40-129 [facility] Comment on above: Performed By: #### L 500.4050, L100.0100, L500.4100, L506.1001, L501.9520 #### [facility] [address] [place], [address] ALT [Catalytic activity/Vol] 26 U/L Normal <=46 [facility] Comment on above: Performed By: #### L 500.4050, L100.0100, L500.4100, L506.1001, L501.9520 #### [facility] [address] [place], [address] AST [Catalytic activity/Vol] 32 U/L Normal <=37 [facility] Comment on above: Performed By: #### L 500.4050, L100.0100, L500.4100, L506.1001, L501.9520 #### [facility] [address] [place], [address] Bilirubin [Mass/Vol] 0.45 mg/dL Normal 0.00-1.30 [facility] Comment on above: Performed By: #### L 500.4050, L100.0100, L500.4100, L506.1001, L501.9520 #### [facility] [address] [place], [address] BUN/CRE 12.2 RATIO Normal 10-20 [facility] Comment on above: Performed By: #### L 500.4050, L100.0100, L500.4100, L506.1001, L501.9520 #### [facility] [address] [place], [address] Calcium [Mass/Vol] 9.5 mg/dL Normal 7.6-11.0 [facility] Comment on above: Performed By: #### L 500.4050, L100.0100, L500.4100, L506.1001, L501.9520 #### [facility] [address] [place], [address] Chloride [Moles/Vol] 104 mmol/L Normal 98-108 [facility] Comment on above: Performed By: #### L 500.4050, L100.0100, L500.4100, L506.1001, L501.9520 #### [facility] [address] [place], [address] CO2 [Moles/Vol] 24.5 mmol/L Normal 21.0-32.0 [facility] Comment on above: Performed By: #### L 500.4050, L100.0100, L500.4100, L506.1001, L501.9520 #### [facility] [address] [place], [address] Creatinine [Mass/Vol] 1.26 mg/dL High 0.70-1.20 [facility] Comment on above: Performed By: #### L 500.4050, L100.0100, L500.4100, L506.1001, L501.9520 #### [facility] [address] [place], [address] GAP 13 Normal 5-15 [facility] Comment on above: Performed By: #### L 500.4050, L100.0100, L500.4100, L506.1001, L501.9520 #### [facility] [address] [place], [address] GFR/1.73 sq M.predicted among non-blacks MDRD (S/P/Bld) [Vol rate/Area] 58 mL/min/{1.73_m2} Low >60 [facility] Comment on above: Result Comment: mL/m in/1.73m2 CKD-EPI Creatinine Equation (2020) Performed By: #### L 500.4050, L100.0100, L500.4100, L506.1001, L501.9520 #### [facility] [address] [place], [address] Globulin (S) [Mass/Vol] 3.0 g/dL Normal 2.2-4.2 [facility] Comment on above: Performed By: #### L 500.4050, L100.0100, L500.4100, L506.1001, L501.9520 #### [facility] [address] [place], [address] Glucose [Mass/Vol] 103 mg/dL High 70-99 [facility] Comment on above: Performed By: #### L 500.4050, L100.0100, L500.4100, L506.1001, L501.9520 #### [facility] [address] [place], [address] Potassium [Moles/Vol] 4.4 mmol/L Normal 3.3-5.1 [facility] Comment on above: Performed By: #### L 500.4050, L100.0100, L500.4100, L506.1001, L501.9520 #### [facility] [address] [place], [address] Sodium [Moles/Vol] 141 mmol/L Normal 133-145 [facility] Comment on above: Performed By: #### L 500.4050, L100.0100, L500.4100, L506.1001, L501.9520 #### [facility] [address] [place], [address] T PROT 7.8 g/dL Normal 5.9-8.4 [facility] Comment on above: Performed By: #### L 500.4050, L100.0100, L500.4100, L506.1001, L501.9520 #### [facility] [address] [place], [address] Urea nitrogen [Mass/Vol] 15 mg/dL Normal 4-19 [facility] Comment on above: Performed By: #### L 500.4050, L100.0100, L500.4100, L506.1001, L501.9520 #### [facility] [address] [place], [address] Eosinophil percentageOrdered By: Fox Fischer on 07-02-2024 Eosinophils/100 WBC (Bld) 8.0 % High 0-5 [facility] Erythrocyte distribution wid th (RBC) [Ratio]Ordered By: Fox Fischer on 07-02-2024 Erythrocyte distribution width (RBC) [Entitic vol] 43.7 fL 35.1-43.9 [facility] Erythrocyte distribution wid th ratioOrdered By: Fox Fischer on 07-02-2024 Erythrocyte distribution width (RBC) [Ratio] 12.7 % 11.6-14.6 [facility] Erythrocyte distribution wid th standard deviationOrdered By: Fox Fischer on 07-02-2024 Erythrocyte distribution width (RBC) [Ratio] 43.7 fl 35.1-43.9 [facility] GFR/1.73 sq M.predicted ned g non-blacks MDRD (S/P/Bld) [Vol rate/Area]Ordered By: Fox Fischer on 07-02-2024 Estimated GFR (MDRD) Non-Af Amer 58 Low >60 [facility] Comment on above: mL/min/1.73m2 CKD-EP I Creatinine Equation (2020) Glomerular filtration rate ( GFR) estimation/1.73 sq m using serum, plasma, or whole bOrdered By: Fox Fischer on 07-02-2024 GFR/1.73 sq M.predicted among non-blacks MDRD (S/P/Bld) [Vol rate/Area] 58 mL/min/{1.73_m2} Low >60 [facility] Comment on above: mL/min/1.73m2 CKD-EP I Creatinine Equation (2020) Hematocrit Auto (Bld) [Volum e fraction]Ordered By: Fox Fischer 07-02-2024 Hematocrit (Bld) [Volume fraction] 42.5 % 40-54 [facility] Hemoglobin measurementOrdere d By: Fox Fischer 07-02-2024 Hemoglobin (Bld) [Mass/Vol] 14.4 g/dL 13.0-16.5 [facility] Immature granulocytes/100 WB C Auto (Bld)Ordered By: Fox Fischer 07-02-2024 Immature granulocytes/100 WBC (Bld) 0.700 % 0.0-0.9 [facility] Comment on above: IG% - Immature Granu locytes (promyelocytes, myelocytes and metamyelocytes) > 1% indicates that a LEFT SHIFT is Present. LDL calc ser/plasOrdered By: Fox Fischer on 07-02-2024 Cholesterol in LDL [Mass/Vol] 155 mg/dL [facility] Comment on above: Sdgoaqtysq=919-324 m g/dL & Higher Dxlf=434 mg/dL or greater LDL Cholesterol, Calculated 155 mg/dL [facility] Comment on above: Tnclxhwmji=175-978 m g/dL & Higher Wbrs=127 mg/dL or greater Laboratory - Chemistry and C hemistry - challengeOrdered By: Fox Fischer on 07-02-2024 AST [Catalytic activity/Vol] 32 U/L <38 [facility] Lipid Profileon 07-02-2024 CHOL:HDL 5.17 Normal [facility] Comment on above: Performed By: #### L 500.4050, L100.0100, L500.4100, L506.1001, L501.9520 #### [facility] [address] [place], [address] Cholesterol [Mass/Vol] 224 mg/dL High <=200 [facility] Comment on above: Result Comment: Chol esterol level, Desirable <200 mg/dL Borderline high cholesterol 200-239 mg/dL High cholesterol >=240 mg/dL Recommendations of the NCEP Adult Treatment Panel for the following risk-cutoff thresholds for the [place] population. Performed By: #### L 500.4050, L100.0100, L500.4100, L506.1001, L501.9520 #### [facility] [address] [place], [address] Cholesterol in HDL [Mass/Vol] 43 mg/dL Normal [facility] Comment on above: Result Comment: Yesenia onal Cholesterol Education Program (NCEP) guidelines: <40 mg/dL: Low HDL-cholesterol (major risk factor for CHD) >= 60 mg/dL: High HDL-cholesterol (negative risk factor for CHD) HDL-cholesterol is affected by a number of factors, e.g. smoking, exercise, hormones, sex and age. Performed By: #### L 500.4050, L100.0100, L500.4100, L506.1001, L501.9520 #### [facility] [address] [place], [address] Cholesterol in LDL [Mass/Vol] 155 mg/dL Normal [facility] Comment on above: Result Comment: Bord rdonzz=868-678 mg/dL Higher Drgw=046 mg/dL or greater Performed By: #### L 500.4050, L100.0100, L500.4100, L506.1001, L501.9520 #### [facility] [address] [place], [address] Cholesterol in VLDL [Mass/Vol] 26 mg/dL Normal 5-40 [facility] Comment on above: Performed By: #### L 500.4050, L100.0100, L500.4100, L506.1001, L501.9520 #### [facility] [address] [place], [address] Triglyceride [Mass/Vol] 129 mg/dL Normal [facility] Comment on above: Result Comment: The drugs N-Acetylcysteine and Metamizole may falsely depress this assay. Normal range: <150 mg/dL Borderline High: 150-199 mg/dL High: 200-499 mg/dL Very High: >500 mg/dL Performed By: #### L 500.4050, L100.0100, L500.4100, L506.1001, L501.9520 #### [facility] [address] [place], [address] Lymphocytes Auto (Unsp spec) [#/Vol]Ordered By: Fox Fischer on 07-02-2024 Lymphocytes (Bld) [#/Vol] 1.93 10*3/uL 0.83-4.51 [facility] Lymphocytes/100 WBC Auto (Un sp spec)Ordered By: Fox Fischer on 07-02-2024 Lymphocytes/100 WBC (Bld) 31.7 % 19-41 [facility] MCV (mean corpuscular volume ) determinationOrdered By: Fox Fischer on 07-02-2024 MCV (RBC) [Entitic vol] 93.4 fL 80-94 [facility] Mean corpuscular hemoglobin (MCH) determinationOrdered By: Fox Fischer on 07-02-2024 MCH (RBC) [Entitic mass] 31.6 pg 27.0-32.0 [facility] Mean corpuscular hemoglobin concentration (MCHC) determinationOrdered By: Fox Fischer on 07-02-2024 MCHC (RBC) [Mass/Vol] 33.9 g/dL 32-36 [facility] Mean platelet volume determi nationOrdered By: Fox Fischer on 07-02-2024 Platelet mean volume (Bld) [Entitic vol] 9.9 fL 6.2-12.0 [facility] Monocyte percentageOrdered B y: Fox Fischer on 07-02-2024 Monocytes/100 WBC (Bld) 8.9 % 0-10 [facility] Neutrophil percentageOrdered By: Fox Fischer on 07-02-2024 Neutrophils/100 WBC (Bld) 49.9 % 47-70 [facility] Nucleated red blood cell per centageOrdered By: Fox Fischer on 07-02-2024 Nucleated RBC/100 WBC (Bld) [Ratio] 0 % 0-5 [facility] Platelet countOrdered By: Jaciel Fischer on 07-02-2024 Platelets (Bld) [#/Vol] 215 10*3/uL 150-450 [facility] Potassium (Unsp spec) [Mass/ Vol]Ordered By: Fox Fischer on 07-02-2024 Potassium [Moles/Vol] 4.4 mmol/L 3.3-5.1 [facility] Potassium measurement (mass/ volume)Ordered By: Fox Fischer on 07-02-2024 Potassium (Unsp spec) [Mass/Vol] 4.4 mmol/L 3.3-5.1 [facility] RBC Auto (Bld) [#/Vol]Ordere d By: Fox Fischer on 07-02-2024 RBC (Bld) [#/Vol] 4.55 10*6/uL Low 4.6-6.2 [facility] Screening total cholesterol/ high density lipoprotein (HDL) cholesterol ratioOrdered By: Fox Fischer on 07-02-2024 Cholesterol.total/Chol esterol in HDL [Mass ratio] 5.17 {ratio} [facility] Serum creatinine measurement (mass/volume)Ordered By: Fox Fischer on 07-02-2024 Creatinine [Mass/Vol] 1.26 mg/dL High 0.70-1.20 [facility] Serum globulin measurementOr dered By: Fox Fischer 07-02-2024 Globulin (S) [Mass/Vol] 3.0 g/dL 2.2-4.2 [facility] Serum glucose measurement (m ass/volume)Ordered By: Fox Fischer 07-02-2024 Glucose [Mass/Vol] 103 mg/dL High 70-99 [facility] Serum or plasma alanine santa otransferase (ALT) measurementOrdered By: Fox Fischer 07-02-2024 ALT [Catalytic activity/Vol] 26 U/L <47 [facility] Serum or plasma albumin prem urement (mass/volume)Ordered By: Fox Fischer 07-02-2024 Albumin [Mass/Vol] 4.8 g/dL 3.4-4.8 [facility] Serum or plasma albumin/glob ulin mass ratioOrdered By: Fox Fischer 07-02-2024 Albumin/Globulin [Mass ratio] 1.6 {ratio} 0.9-2.4 [facility] Serum or plasma alkaline kurt sphatase measurementOrdered By: Fox Fischer 07-02-2024 ALP [Catalytic activity/Vol] 75 U/L 40-129 [facility] Serum or plasma calcium prem urement (mass/volume)Ordered By: Fox Fischer 07-02-2024 Calcium [Mass/Vol] 9.5 mg/dL 7.6-11.0 [facility] Serum or plasma cholesterol in HDL measurement (mass/volume)Ordered By: Fox Fischer 07-02-2024 Cholesterol in HDL [Mass/Vol] 43 mg/dL >40 [facility] Comment on above: National Cholesterol Education Program (NCEP) guidelines:<40 mg/dL: Low HDL-cholesterol (major risk factor for CHD)>= 60 mg/dL: High HDL-cholesterol (negative risk factor for CHD)HDL-cholesterol is affected by a number of factors, e.g. smoking, exercise, hormones, sex and age. Serum or plasma cholesterol measurement (mass/volume)Ordered By: Fox Fischer on 07-02-2024 Cholesterol [Mass/Vol] 224 mg/dL High <201 [facility] Comment on above: Cholesterol level, D esirable <200 mg/dLBorderline high cholesterol 200-239 mg/dLHigh cholesterol >=240 mg/dLRecommendations of the NCEP Adult Treatment Panel for the following risk-cutoff thresholds for the [place] population. Serum or plasma urea nitroge n measurement (mass/volume)Ordered By: Fox Fischer on 07-02-2024 Urea nitrogen [Mass/Vol] 15 mg/dL 4-19 [facility] Sodium levelOrdered By: Fox Fischer 07-02-2024 Sodium [Moles/Vol] 141 mmol/L 133-145 [facility] TSH DL <= 0.005 mIU/L QnOrde red By: Fox Fischer on 07-02-2024 Thyroid Stimulating Hormone (TSH) 2.240 uIU/mL 0.300-4.200 [facility] TSH Qn 2.240 uIU/mL 0.300-4.200 [facility] Thyroid Stim Hormone (TSH)on 07-02-2024 TSH 2.240 uIU/mL Normal 0.300-4.200 [facility] Comment on above: Performed By: #### L 500.4050, L100.0100, L500.4100, L506.1001, L501.9520 #### [facility] Laboratory [address] [place], [place], [id number] Total proteinOrdered By: Fox Fischer 07-02-2024 Protein [Mass/Vol] 7.8 g/dL 5.9-8.4 [facility] Triglycerides measurementOrd ered By: Fox Fischer 07-02-2024 Triglyceride [Mass/Vol] 129 mg/dL <199 [facility] Comment on above: The drugs N-Acetylcy steine and Metamizole may falsely depress this assay. Normal range: <150 mg/dLBorderline High: 150-199 mg/dLHigh: 200-499 mg/dLVery High: >500 mg/dL Vitamin D, 25-hydroxyOrdered By: Fox Fischer on 07-02-2024 Vitamin D 25-Hydroxy 33.6 ng/mL 30-100 [facility] Comment on above: Vitamin D StatusDefi ciency: <20 ng/mL (50nmol/L)Insufficiency: 20-30 ng/mL (50-75 nmol/L)Sufficiency: 30-100 ng/mL (75-250 nmol/L)Toxicity: >100 ng/mL (>250 nmol/L) Vitamin D,25 Hydroxyon 07-02 Vitamin D 25-OH 33.6 ng/mL Normal 30-100 [facility] Comment on above: Result Comment: Sari min D Status Deficiency: <20 ng/mL (50nmol/L) Insufficiency: 20-30 ng/mL (50-75 nmol/L) Sufficiency: 30-100 ng/mL (75-250 nmol/L) Toxicity: >100 ng/mL (>250 nmol/L) Performed By: #### L 500.4050, L100.0100, L500.4100, L506.1001, L501.9520 #### [facility] [address] [place], [address] White blood cell (WBC) count Ordered By: Fox Fischer on 07-02-2024 WBC (Bld) [#/Vol] 6.1 10*3/uL 4.4-11.0 [facility] Pulmonary Visit Reporton Pulmonary Visit Report [facility] [address] [place] [address] OFFICE VISIT Date of Service: 05/08/24 MR#: [id number] Acct: [id number] Name: CARLEE LEE Rep #: [id number] : 1945 Provider: XAVIER Patel Age/Sex: 78/M [facility] Status: Signed Assessment and Plan Assessment [...] time. Plan Details Follow Up: 1 Year ([facility]) HPI HPI Comments Details: This patient presents [...] 1 Y FU Chief Complaint: Chest pressure Cleaning Maid Required: No DME Vendor: [employer] Accompanied by: Self Allergies Food Allergies: Uncoded Allergy (Verified 05/08/24 11:12) Rash Iodine and Iodide Containing Produc Allergy (Verified 05/08/24 11:12) Itching shellfish derived Allergy (Verified 05/08/24 11:12) Itching losartan Adverse Reaction (Severe, Verified 05/08/24 11:12) Severe hypotension and near syncope petrolatum,white (From Petroleum Jelly) Adverse Reaction (Verified 05/08/24 11:12) Other Jfwpgbt-NOV-UeU Reductase Inhibitor (Bzznlvp-Hkh-Zwi Reductase Inhibitor) Adverse Reaction (Verified 05/08/24 11:12) [...] PO QDAY 02/03/24 05/08/24 His tory vitamins A,C,R-dfke-lovvko 4,296 1 cap PO BID 02/03/24 05/08/24 His tory mcg-226 mg-90 mg capsule (PreserVision AREDS) aspirin 81 mg tablet,delayed 81 mg PO .qod #45 tabs 04/06/24 Rx release famotidine 20 mg tablet 20 mg PO QDAY 05/08/24 05/08/24 Hi story latanoprost 0.005 % eye drops 1 drp ophthalmic (eye) QHS 5 05/08/24 History Have you fallen in the past year?: Yes [facility] Medical History (Reviewed 05/08/24 @ 11:19 by Pam Patel ONLINE AFFILIATE MARKETING MANAGER, ONLINE AFFILIATE MARKETING MANAGER-C) Wears gl (more content not included)... Normal [facility] 12 Lead EKG performed by [facility] on 02-03-2024 12 Lead EKG performed by [facility] [address] [place] [address] 12 Lead EKG performed by [facility] 02/03/24 1015 MR#: [id number] Acct: [id number] Name: CARLEE LEE Rep #: [id number] : 1945 78 From: Brandon Fulton MD Attending Dr: Dr. Brandon Fulton MD Status: DE P AMB Ordering Dr: Brandon Fulton MD Date: 02/03/24 Location: [facility] [place] Sex: M C Admitted: BMS/12 Lead EKG performed by [facility] ECG Report Interpretation --Sinus Rhythm - occasional PAC # PACs = 1.WITHIN NORMAL LIMITSElectronically signed on 02/03/2024 at 11:[address] Brandon Fulton [email or web address] Software Version 8610 02/03/24 1156 Date Brandon Fulton MD CC: Dr. 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 [place] [address] OFFICE VISIT Date of Service: 02/03/24 MR#: [id number] Acct: [id number] Name: CARLEE LEE Rep #: [id number] : 1945 Provider: Dr. Brandon blackmon MD Age/Sex: 78/M Location: [facility] [place] Status: Signed HPI HPI History of [...] Monitor Intake Visit Reasons: 6 M FU Cleaning Maid Required: No Accompanied by: Self Is patient in pain?: No Allergies Food Allergies: Uncoded Allergy (Verified 02/03/24 10:18) Rash Iodine and Iodide Containing Produc Allergy (Verified 02/03/24 10:18) Itching shellfish derived Allergy (Verified 02/03/24 10:18) Itching losartan Adverse Reaction (Severe, Verified 02/03/24 10:18) Severe hypotension and near syncope petrolatum,white (From Petroleum Jelly) Adverse Reaction (Verified 02/03/24 10:18) Other Nhksuvg-SXF-KxL Reductase Inhibitor (Enzkbyu-Xuf-Pmn Reductase Inhibitor) Adverse Reaction (Verified 02/03/24 10:18) [...] mg PO QDAY 02/03/24 02/03/24 History vitamins A,C,B-kbwt-bpigtq 4,296 1 cap PO BID 02/03/24 02/03/24 [...] Hyperlipidemia Essential hypertension 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 pectoris Atypical chest [...] History (Re (more content not included)... Normal [facility] Vitamin D,25 Hydroxyon 01-02 Vitamin D 25-OH 29.2 ng/mL Normal [facility] Comment on above: Result Comment: Sari min D 25(OH) Status Range Deficiency <20 ng/mL (50nmol/L) Insufficiency 20 - 30 ng/mL (50 - 75 nmol/L) Sufficiency 30 - 100 ng/mL (75 - 250 nmol/L) Toxicity >100 ng/mL (>250 nmol/L) Performed By: #### L 100.0100, L500.4100, L500.4050, L506.1000, L501.9520 ####[facility] [address] [place], [address] CBC W/Diff, Automatedon 12-16 Absolute Lymph 1.79 X10 3/uL Normal 0.83-4.51 [facility] Comment on above: Performed By: #### L 100.0100, L500.4100, L500.4050, L506.1000, L501.9520 ####[facility] [address] [place], [address] Absolute Neut 3.3 X10 3/uL Normal 2.0-7.7 [facility] Comment on above: Performed By: #### L 100.0100, L500.4100, L500.4050, L506.1000, L501.9520 ####[facility] [address] [place], [address] Basophils/100 WBC (Bld) 0.9 % Normal 0-1 [facility] Comment on above: Performed By: #### L 100.0100, L500.4100, L500.4050, L506.1000, L501.9520 ####[facility] [address] [place], [address] Eosinophils/100 WBC (Bld) 8.6 % High 0-5 [facility] Comment on above: Performed By: #### L 100.0100, L500.4100, L500.4050, L506.1000, L501.9520 ####[facility] [address] [place], [address] Erythrocyte distribution width (RBC) [Ratio] 13.2 % Normal 11.6-14.6 [facility] Comment on above: Performed By: #### L 100.0100, L500.4100, L500.4050, L506.1000, L501.9520 ####[facility] [address] [place], [address] Hematocrit (Bld) [Volume fraction] 43.1 % Normal 40-54 [facility] Comment on above: Performed By: #### L 100.0100, L500.4100, L500.4050, L506.1000, L501.9520 ####[facility] [address] [place], [address] Hemoglobin (Bld) [Mass/Vol] 14.6 g/dL Normal 13.0-16.5 [facility] Comment on above: Performed By: #### L 100.0100, L500.4100, L500.4050, L506.1000, L501.9520 ####[facility] [address] [place], [address] IG% 1.100 High 0.0-0.9 [facility] Comment on above: Result Comment: IG% - Immature Granulocytes (promyelocytes, myelocytes and metamyelocytes) > 1% indicates that a LEFT SHIFT is Present. Performed By: #### L 100.0100, L500.4100, L500.4050, L506.1000, L501.9520 ####[facility] [address] [place], [address] Lymphocytes/100 WBC (Bld) 28.1 % Normal 19-41 [facility] Comment on above: Performed By: #### L 100.0100, L500.4100, L500.4050, L506.1000, L501.9520 ####[facility] [address] [place], [address] MCH (RBC) [Entitic mass] 31.7 pg Normal 27.0-32.0 [facility] Comment on above: Performed By: #### L 100.0100, L500.4100, L500.4050, L506.1000, L501.9520 ####[facility] [address] [place], [address] MCHC (RBC) [Mass/Vol] 33.9 g/dL Normal 32-36 [facility] Comment on above: Performed By: #### L 100.0100, L500.4100, L500.4050, L506.1000, L501.9520 ####[facility] [address] [place], [address] MCV (RBC) [Entitic vol] 93.5 fL Normal 80-94 [facility] Comment on above: Performed By: #### L 100.0100, L500.4100, L500.4050, L506.1000, L501.9520 ####[facility] [address] [place], [address] Monocytes/100 WBC (Bld) 8.8 % Normal 0-10 [facility] Comment on above: Performed By: #### L 100.0100, L500.4100, L500.4050, L506.1000, L501.9520 ####[facility] [address] [place], [address] Neutrophils/100 WBC (Bld) 52.5 % Normal 47-70 [facility] Comment on above: Performed By: #### L 100.0100, L500.4100, L500.4050, L506.1000, L501.9520 ####[facility] [address] [place], [address] Nucleated RBC (Bld) [#/Vol] 0 10*3/uL Normal 0-5 [facility] Comment on above: Performed By: #### L 100.0100, L500.4100, L500.4050, L506.1000, L501.9520 ####[facility] [address] [place], [address] Platelet mean volume (Bld) [Entitic vol] 9.4 fL Normal 6.2-12.0 [facility] Comment on above: Performed By: #### L 100.0100, L500.4100, L500.4050, L506.1000, L501.9520 ####[facility] [address] [place], [address] Platelets (Bld) [#/Vol] 201 10*3/uL Normal 150-450 [facility] Comment on above: Performed By: #### L 100.0100, L500.4100, L500.4050, L506.1000, L501.9520 ####[facility] [address] [place], [address] RBC (Bld) [#/Vol] 4.61 10*6/uL Normal 4.6-6.2 [facility] Comment on above: Performed By: #### L 100.0100, L500.4100, L500.4050, L506.1000, L501.9520 ####[facility] [address] [place], [address] RDW SD 45.0 fl High 35.1-43.9 [facility] Comment on above: Performed By: #### L 100.0100, L500.4100, L500.4050, L506.1000, L501.9520 ####[facility] [address] [place], [address] WBC (Bld) [#/Vol] 6.4 10*3/uL Normal 4.4-11.0 [facility] Comment on above: Performed By: #### L 100.0100, L500.4100, L500.4050, L506.1000, L501.9520 ####[facility] [address] [place], [address] Comprehensive Metabolic [facility] ilon 01-02-2024 Albumin [Mass/Vol] 4.0 g/dL Normal 3.2-5.0 [facility] Comment on above: Performed By: #### L 100.0100, L500.4100, L500.4050, L506.1000, L501.9520 ####[facility] [address] [place], [address] Albumin/Globulin [Mass ratio] 1.1 {ratio} Normal 0.9-2.4 [facility] Comment on above: Performed By: #### L 100.0100, L500.4100, L500.4050, L506.1000, L501.9520 ####[facility] [address] [place], [address] ALK P 83 U/L Normal 45-117 [facility] Comment on above: Performed By: #### L 100.0100, L500.4100, L500.4050, L506.1000, L501.9520 ####[facility] [address] [place], [address] ALT [Catalytic activity/Vol] 18 U/L Normal 16-61 [facility] Comment on above: Performed By: #### L 100.0100, L500.4100, L500.4050, L506.1000, L501.9520 ####[facility] [address] [place], [address] AST [Catalytic activity/Vol] 17 U/L Normal 15-37 [facility] Comment on above: Performed By: #### L 100.0100, L500.4100, L500.4050, L506.1000, L501.9520 ####[facility] [address] [place], [address] Bilirubin [Mass/Vol] 0.60 mg/dL Normal 0.20-1.00 [facility] Comment on above: Result Comment: For patients on eltrombopag therapy, use of Dimension Odin TBIL is not recommended. Performed By: #### L 100.0100, L500.4100, L500.4050, L506.1000, L501.9520 ####[facility] [address] [place], [address] BUN/CRE 12.8 RATIO Normal 10-20 [facility] Comment on above: Performed By: #### L 100.0100, L500.4100, L500.4050, L506.1000, L501.9520 ####[facility] [address] [place], [address] CA,Total 9.0 mg/dL Normal 8.5-10.1 [facility] Comment on above: Performed By: #### L 100.0100, L500.4100, L500.4050, L506.1000, L501.9520 ####[facility] [address] [place], [address] Chloride [Moles/Vol] 108 mmol/L High 98-107 [facility] Comment on above: Performed By: #### L 100.0100, L500.4100, L500.4050, L506.1000, L501.9520 ####[facility] [address] [place], [address] CO2 [Moles/Vol] 27.0 mmol/L Normal 21.0-32.0 [facility] Comment on above: Performed By: #### L 100.0100, L500.4100, L500.4050, L506.1000, L501.9520 ####[facility] [address] [place], [address] Creatinine [Mass/Vol] 1.25 mg/dL Normal 0.70-1.30 [facility] Comment on above: Result Comment: The validity of the calculated GFR GFRAA in patients over 70 years has not been determined. Clinical correlation is essential. Performed By: #### L 100.0100, L500.4100, L500.4050, L506.1000, L501.9520 ####[facility] [address] [place], [address] EST GFR - AA 71 mL/min Normal >60 [facility] Comment on above: Result Comment: Afri can [place]ij[place] GFR Calc Performed By: #### L 100.0100, L500.4100, L500.4050, L506.1000, L501.9520 ####[facility] [address] [place], [address] GAP 6 Normal 5-15 [facility] Comment on above: Performed By: #### L 100.0100, L500.4100, L500.4050, L506.1000, L501.9520 ####[facility] [address] [place], [address] GFR/1.73 sq M.predicted among non-blacks MDRD (S/P/Bld) [Vol rate/Area] 59 mL/min/{1.73_m2} Low >60 [facility] Comment on above: Result Comment: Non- GFR Calc Performed By: #### L 100.0100, L500.4100, L500.4050, L506.1000, L501.9520 ####[facility] [address] [place], [address] Globulin (S) [Mass/Vol] 3.8 g/dL Normal 2.2-4.2 [facility] Comment on above: Performed By: #### L 100.0100, L500.4100, L500.4050, L506.1000, L501.9520 ####[facility] [address] [place], [address] Glucose [Mass/Vol] 121 mg/dL High 74-106 [facility] Comment on above: Result Comment: Fast ing Glucose result from 100 to 125 mg/dL suggests IMPAIRED HOMEOSTASIS per A.D.A. criteria. Performed By: #### L 100.0100, L500.4100, L500.4050, L506.1000, L501.9520 ####[facility] [address] [place], [address] Potassium [Moles/Vol] 3.8 mmol/L Normal 3.5-5.1 [facility] Comment on above: Performed By: #### L 100.0100, L500.4100, L500.4050, L506.1000, L501.9520 ####[facility] [address] [place], [address] Sodium [Moles/Vol] 140 mmol/L Normal 136-145 [facility] Comment on above: Performed By: #### L 100.0100, L500.4100, L500.4050, L506.1000, L501.9520 ####[facility] [address] [place], [address] T PROT 7.8 g/dL Normal 6.4-8.2 [facility] Comment on above: Performed By: #### L 100.0100, L500.4100, L500.4050, L506.1000, L501.9520 ####[facility] [address] [place], [address] Urea nitrogen [Mass/Vol] 16 mg/dL Normal 7-18 [facility] Comment on above: Performed By: #### L 100.0100, L500.4100, L500.4050, L506.1000, L501.9520 ####[facility] [address] [place], [address] Lipid Profileon 01-02-2024 Cholesterol [Mass/Vol] 208 mg/dL High 200 [facility] Comment on above: Result Comment: <200 mg/dL Desirable 200-240 mg/dL Borderline >240 mg/dL High Risk Performed By: #### L 100.0100, L500.4100, L500.4050, L506.1000, L501.9520 ####[facility] [address] [place], [address] Cholesterol in HDL [Mass/Vol] 52 mg/dL Normal [facility] Comment on above: Result Comment: The drugs N-Acetylcysteine and Metamizole may falsely depress this assay. Reference Range HDL <40 mg/dL Low HDL Cholesterol HDL >or= 60 mg/dL High HDL Cholesterol Performed By: #### L 100.0100, L500.4100, L500.4050, L506.1000, L501.9520 ####[facility] [address] [place], [address] Cholesterol in LDL [Mass/Vol] 136 mg/dL High 0-130 [facility] Comment on above: Performed By: #### L 100.0100, L500.4100, L500.4050, L506.1000, L501.9520 ####[facility] [address] [place], [address] Cholesterol in VLDL [Mass/Vol] 20 mg/dL Normal 5-40 [facility] Comment on above: Performed By: #### L 100.0100, L500.4100, L500.4050, L506.1000, L501.9520 ####[facility] [address] [place], [address] Triglyceride [Mass/Vol] 102 mg/dL Normal [facility] Comment on above: Result Comment: The drugs N-Acetylcysteine and Metamizole may falsely depress this assay. Serum Triglycerides Reference Interval Normal <150 mg/dL Borderline high 150 - 199 mg/dL High 200 - 499 mg/dL Very High > or = 500 mg/dL Performed By: #### L 100.0100, L500.4100, L500.4050, L506.1000, L501.9520 ####[facility] [address] [place], [address] Thyroid Stim Hormone (TSH)on 01-02-2024 TSH 1.830 uIU/mL Normal 0.358-3.740 [facility] Comment on above: Performed By: #### L 100.0100, L500.4100, L500.4050, L506.1000, L501.9520 ####[facility] [address] [place], [address] Renal Profileon 10-29-2023 Albumin [Mass/Vol] 3.9 g/dL Normal 3.2-5.0 [facility] Comment on above: Performed By: #### L 500.3600 ####[facility] [address] [place], [address] BUN/CRE 9.2 RATIO Low 10-20 [facility] Comment on above: Performed By: #### L 500.3600 ####[facility] [address] [place], [address] CA,Total 9.0 mg/dL Normal 8.5-10.1 [facility] Comment on above: Performed By: #### L 500.3600 ####[facility] [address] [place], [address] Chloride [Moles/Vol] 106 mmol/L Normal 98-107 [facility] Comment on above: Performed By: #### L 500.3600 ####[facility] [address] [place], [address] CO2 [Moles/Vol] 26.0 mmol/L Normal 21.0-32.0 [facility] Comment on above: Performed By: #### L 500.3600 ####[facility] [address] [place], [address] Creatinine [Mass/Vol] 1.30 mg/dL Normal 0.70-1.30 [facility] Comment on above: Result Comment: The validity of the calculated GFR GFRAA in patients over 70 years has not been determined. Clinical correlation is essential. Performed By: #### L 500.3600 ####[facility] [address] [place], [address] EST GFR - AA 68 mL/min Normal >60 [facility] Comment on above: Result Comment: Afri can Azerbaijani GFR Calc Performed By: #### L 500.3600 ####[facility] [address] [place], [address] GFR/1.73 sq M.predicted among non-blacks MDRD (S/P/Bld) [Vol rate/Area] 57 mL/min/{1.73_m2} Low >60 [facility] Comment on above: Result Comment: Non- GFR Calc Performed By: #### L 500.3600 ####[facility] [address] [place], [address] Glucose [Mass/Vol] 104 mg/dL Normal 74-106 [facility] Comment on above: Result Comment: Fast ing Glucose result from 100 to 125 mg/dL suggests IMPAIRED HOMEOSTASIS per A.D.A. criteria. Performed By: #### L 500.3600 ####[facility] [address] [place], [address] Phosphate [Mass/Vol] 2.4 mg/dL Low 2.5-4.9 [facility] Comment on above: Performed By: #### L 500.3600 ####[facility] [address] [place], [address] Potassium [Moles/Vol] 3.8 mmol/L Normal 3.5-5.1 [facility] Comment on above: Performed By: #### L 500.3600 ####[facility] [address] [place], [address] Sodium [Moles/Vol] 140 mmol/L Normal 136-145 [facility] Comment on above: Performed By: #### L 500.3600 ####[facility] [address] [place], [address] Urea nitrogen [Mass/Vol] 12 mg/dL Normal 7-18 [facility] Comment on above: Performed By: #### L 500.3600 ####[facility] [address] [place], [address] Partial Thromboplast Timeon 08-20-2023 aPTT Coag (Bld) [Time] 35.9 s Normal 24.1-36.2 [facility] Comment on above: Performed By: #### L 100.1900, L300.3900, L300.4310 ####[facility] [address] [place], [address] Platelet Counton 08-20-2023 Platelets (Bld) [#/Vol] 234 10*3/uL Normal 150-450 [facility] Comment on above: Performed By: #### L 100.1900, L300.3900, L300.4310 #### [facility] Laboratory [address] [place], [address] Procedure Reporton Procedure Report [facility] Medical Records Department [address] [place] [address] Procedure Report 08/20/23 1104 MR#: [id number] Acct: [id number] Name: CARLEE LEE Rep #: [id number] : 1945 77 From: Ronel Morales ONLINE [employer]C PCP: Dr. 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 Procedures Radiology Radiology CT Procedures: 78256 Biopsy Kidney Multi Select Codes Radiology Radiology CT Procedures: [id number] CT guidance parenchymal tissue 08/20/23 1109 Cosigner Signature (if applicable): CC: XAVIER Morales; Dr. Ciaran Vazquez MD; Dr. Fox Fischer MD Signed Normal [facility] Prothrombin Time w/INRon INR Coag (PPP) [Relative time] 1.2 {INR} Normal [facility] Comment on above: Performed By: #### L 100.1900, L300.3900, L300.4310 #### [facility] [address] [place], [address] PT Coag (PPP) [Time] 15.4 s High 11.7-14.9 [facility] Comment on above: Performed By: #### L 100.1900, L300.3900, L300.4310 #### [facility] [address] [place], [address] Special Stain Group IIon Special Stain Group II ------- Patient Age/Sex Location Account Attending Physician CARLEE LEE 77/M CT [id number] Dr. Ciaran Vazquez MD Specimen: [id number] Received: 08/20/23 Status: KRYSTIN Morin Num: [id number] Spec Type: ASP RAD Subm Dr: Dr. [...] time of core biopsy. / 08/20/2023 TC:1 CPT:57854,977439 Patient Age/Sex Location Account Attending Physician CARLEE LEE 77/M CT [id number] Dr. Ciaran Vazquez MD Signed (signature on file) Dr. Amrit Irving MD 08/21/23 1031 Normal [facility] Comment on above: Performed By: #### P SSII ####[facility] [address] [place], [place], [address] ABO/Rh (Gel)on 07-16-2023 ABO/Rh Interp Positive Invalid Interpretation Code [facility] [place] Comment on above: Performed By: #### A BSGEL, ABOGEL #### [address] [place], [place] [address] ABS (Gel)on 07-16-2023 ABSC Interp (Gel) Negative Normal [facility] [place] Comment on above: Performed By: #### A BOGEL, ABSGEL, ALB, CBC, ANEU, ADIFF, GFR, BMP #### [address] [place], [place] [address] LABORATORYOrdered By: Kiki Gill on 07-16-2023 ABO [...] 9:24:51 AM Ordering Provider: MISTI SHIRLEY Normal [facility] ([place] Absolute lymphocyte countOrd ered By: Fox Fischer on 07-02-2023 Lymphocytes Auto (Unsp spec) [#/Vol] 1.90 10*3/uL 0.83-4.51 [facility] Automated lymphocyte count a s percentage of total leukocytesOrdered By: Fox Fischer on 07-02-2023 Lymphocytes/100 WBC Auto (Unsp spec) 29.4 % 19-41 [facility] Basophil percentageOrdered B y: Fox Fischer on 07-02-2023 Basophils/100 WBC (Bld) 0.6 % 0-1 [facility] Bilirubin [Mass/Vol] 0.60 mg/dL 0.20-1.00 [facility] Comment on above: For patients on eltr ombopag therapy, use of Dimension Odin TBIL is not recommended. Chloride [Moles/Vol] 109 mmol/L 98-107 [facility] Cholesterol [Mass/Vol] 199 mg/dL <200 [facility] Comment on above: <200 mg/dL Desirable 200-240 mg/dL Borderline >240 mg/dL High Risk Eosinophils/100 WBC (Bld) 7.6 % 0-5 [facility] Glucose [Mass/Vol] 132 mg/dL 74-106 [facility] Comment on above: Fasting Glucose resu lt greater than or equal to 126 mg/dL suggests DIABETES MELLITUS per A.D.A. criteria. Hemoglobin (Bld) [Mass/Vol] 13.9 g/dL 13.0-16.5 [facility] Monocytes/100 WBC (Bld) 8.5 % 0-10 [facility] Neutrophils (Bld) [#/Vol] 3.5 10*3/uL 2.0-7.7 [facility] Neutrophils/100 WBC (Bld) 53.3 % 47-70 [facility] Potassium [Moles/Vol] 3.9 mmol/L 3.5-5.1 [facility] Protein [Mass/Vol] 7.5 g/dL 6.4-8.2 [facility] Sodium [Moles/Vol] 141 mmol/L 136-145 [facility] Triglyceride [Mass/Vol] 108 mg/dL <199 [facility] Comment on above: The drugs N-Acetylcy steine and Metamizole may falsely depress this assay.Serum Triglycerides Reference Interval Normal <150 mg/dL Borderline high 150 - 199 mg/dL High 200 - 499 mg/dL Very High > or = 500 mg/dL WBC (Bld) [#/Vol] 6.5 10*3/uL 4.4-11.0 [facility] Determination of erythrocyte mean corpuscular volume (MCV)Ordered By: Fox Fischer on 07-02-2023 MCV (RBC) [Entitic vol] 94.4 fL 80-94 [facility] Erythrocyte distribution wid th ratioOrdered By: [facility] on 07-02-2023 Erythrocyte distribution width (RBC) [Ratio] 12.5 % 11.6-14.6 [facility] Erythrocyte distribution wid th standard deviationOrdered By: [facility] on 07-02-2023 Erythrocyte distribution width (RBC) [Entitic vol] 43.1 fL 35.1-43.9 [facility] Hematocrit Auto (Bld) [Volum e fraction]Ordered By: [facility] on 07-02-2023 Hematocrit (Bld) [Volume fraction] 42.3 % 40-54 [facility] Immature granulocytes/100 WB C Auto (Bld)Ordered By: [facility] 07-02-2023 Immature granulocytes/100 WBC (Bld) 0.600 % 0.0-0.9 [facility] Comment on above: IG% - Immature Granu locytes (promyelocytes, myelocytes and metamyelocytes) > 1% indicates that a LEFT SHIFT is Present. Laboratory - Chemistry and C hemistry - challengeOrdered By: [facility] 07-02-2023 Albumin/Globulin [Mass ratio] 1.1 {ratio} 0.9-2.4 [facility] ALP [Catalytic activity/Vol] 66 U/L 45-117 [facility] ALT [Catalytic activity/Vol] 39 U/L 16-61 [facility] Cholesterol in HDL [Mass/Vol] 49 mg/dL >40 [facility] Comment on above: The drugs N-Acetylcy steine and Metamizole may falsely depress this assay. Reference Range HDL <40 mg/dL Low HDL Cholesterol HDL >or= 60 mg/dL High HDL Cholesterol Cholesterol in LDL [Mass/Vol] 128 mg/dL 0-130 [facility] CO2 [Moles/Vol] 26.0 mmol/L 21.0-32.0 [facility] Globulin (S) [Mass/Vol] 3.6 g/dL 2.2-4.2 [facility] Urea nitrogen/Creatinine [Mass ratio] 15.5 mg/mg 10-20 [facility] Laboratory - Hematology and Cell countsOrdered By: [facility] MCH (RBC) [Entitic mass] 31.0 pg 27.0-32.0 [facility] MCHC (RBC) [Mass/Vol] 32.9 g/dL 32-36 [facility] Nucleated RBC/100 WBC (Bld) [Ratio] 0 % 0-5 [facility] Platelet mean volume (Bld) [Entitic vol] 10.1 fL 6.2-12.0 [facility] Platelets (Bld) [#/Vol] 203 10*3/uL 150-450 [facility] No Panel InformationOrdered By: Fox Fischer on 07-02-2023 Estimated GFR (MDRD) Amer 69 mL/min >60 [facility] Comment on above: GFR Calc Estimated GFR (MDRD) Non-Af Amer 57 mL/min >60 [facility] Comment on above: Non- GFR Calc Prostate Specific Antigen Screen 1.39 ng/mL 0.00-4.00 [facility] Comment on above: This test was perfor med using the TPSA assay method for the[employer] chemistry system. Values obtained with differentassay methods cannot be used interchangably.When changing PSA assays in the course of monitoring apatient, additional sequential testing should be carriedout to confirm baseline values. Vitamin D 25-Hydroxy 35.5 ng/mL [facility] Comment on above: Vitamin D 25(OH) Sta tus Range Deficiency <20 ng/mL (50nmol/L) Insufficiency 20 - 30 ng/mL (50 - 75 nmol/L) Sufficiency 30 - 100 ng/mL (75 - 250 nmol/L) Toxicity >100 ng/mL (>250 nmol/L) VLDL Cholesterol 22 mg/dL 5-40 [facility] RBC Auto (Bld) [#/Vol]Ordere d By: Fox Fischer on 07-02-2023 RBC (Bld) [#/Vol] 4.48 10*6/uL 4.6-6.2 [facility] [place] or plasma calcium prem urement (mass/volume)Ordered By: Fox Fischer on 07-02-2023 Calcium [Mass/Vol] 9.1 mg/dL 8.5-10.1 [facility] Serum or plasma creatinine m easurement (mass/volume)Ordered By: Fox Fischer on 07-02-2023 Creatinine [Mass/Vol] 1.29 mg/dL 0.70-1.30 [facility] Comment on above: The validity of the calculated GFR & GFRAA in patients over 70 years has not been determined. Clinical correlation is essential. Serum or plasma thyroid stim ulating hormone (TSH) measurement (units/volume)Ordered By: Fox Fischer on 07-02-2023 TSH Qn 1.69 uIU/mL 0.358-3.74 [facility] Serum or plasma urea nitroge n measurement (mass/volume)Ordered By: Fox Fischer on 07-02-2023 Urea nitrogen [Mass/Vol] 20 mg/dL 7-18 [facility] Thin prep Papanicolaou smear with manual screeningOrdered By: Fox Fischer on 07-02-2023 Thin prep Papanicolaou smear with manual screening 3.9 g/dL 3.2-5.0 [facility] Thin prep Papanicolaou smear with manual screening 32 U/L 15-37 [facility] Thin prep Papanicolaou smear with manual screening 6 5-15 [facility] .Auto Diffon 06-26-2023 Basophil, Absolute 0.0 10 3/mcL Normal 0.0-0.2 [facility] ([place] Comment on above: Performed By: #### A BOGEL, ABSGEL, ALB, CBC, ANEU, ADIFF, GFR, BMP #### [address] [address] Basophils/100 WBC (Bld) 0.8 % Normal 0.0-2.5 [facility] [place] Comment on above: Performed By: #### A BOGEL, ABSGEL, ALB, CBC, ANEU, ADIFF, GFR, BMP #### [address] [address] Eosinophil, Absolute 0.4 10 3/mcL Normal 0.0-0.4 [facility] ([place]) Comment on above: Performed By: #### A BOGEL, ABSGEL, ALB, CBC, ANEU, ADIFF, GFR, BMP #### [address] [address] Eosinophils/100 WBC (Bld) 7.4 % High 0.0-7.0 [facility] [place] Comment on above: Performed By: #### A BOGEL, ABSGEL, ALB, CBC, ANEU, ADIFF, GFR, BMP #### [address] [address] Lymphocyte, Absolute 1.6 10 3/mcL Normal 0.8-3.9 [facility] ([place]) Comment on above: Performed By: #### A BOGEL, ABSGEL, ALB, CBC, ANEU, ADIFF, GFR, BMP #### [address] [address] Lymphocytes/100 WBC (Bld) 28.0 % Normal 10.0-50.0 [facility] [place] Comment on above: Performed By: #### A BOGEL, ABSGEL, ALB, CBC, ANEU, ADIFF, GFR, BMP #### [address] [address] Monocyte, Absolute 0.5 10 3/mcL Normal 0.2-1.0 [facility] ([place] Comment on above: Performed By: #### A BOGEL, ABSGEL, ALB, CBC, ANEU, ADIFF, GFR, BMP #### [address] [address] Monocytes/100 WBC (Bld) 9.0 % Normal 1.7-13.0 [facility] [place] Comment on above: Performed By: #### A BOGEL, ABSGEL, ALB, CBC, ANEU, ADIFF, GFR, BMP #### [address] [address] Neutrophils/100 WBC (Bld) 54.8 % Normal 37.0-80.0 [facility] [place] Comment on above: Performed By: #### A BOGEL, ABSGEL, ALB, CBC, ANEU, ADIFF, GFR, BMP #### [address] [address] .GFRon 06-26-2023 GFR 67 ml/min/1.73sqm Normal [facility] [place] Comment on above: Result Comment: GFR Population [...] ALB, CBC, ANEU, ADIFF, GFR, BMP #### [address] [address] GFR Non- 55 ml/min/1.73sqm Normal [facility] [place] Comment on above: Result Comment: GFR Population [...] ALB, CBC, ANEU, ADIFF, GFR, BMP #### [address] [address] .NEUABSon 06-26-2023 Neutrophil, Absolute 3.1 10 3/mcL Normal 2.9-6.2 [facility] ([place] Comment on above: Performed By: #### A BOGEL, ABSGEL, ALB, CBC, ANEU, ADIFF, GFR, BMP #### [address] [address] ABO/Rh (Gel)on 06-26-2023 ABO/Rh Interp Positive Invalid Interpretation Code [facility] [place] Comment on above: Performed By: #### A BOGEL, ABSGEL, ALB, CBC, ANEU, ADIFF, GFR, BMP #### [address] [address] ABS (Gel)on 06-26-2023 ABSC Interp (Gel) Negative Normal [facility] [place] Comment on above: Performed By: #### A BOGEL, ABSGEL, ALB, CBC, ANEU, ADIFF, GFR, BMP #### [address] [address] ALBon 06-26-2023 Albumin Level 4.2 G/dL Normal 3.4-4.8 [facility]) Comment on above: Performed By: #### A BOGEL, ABSGEL, ALB, CBC, ANEU, ADIFF, GFR, BMP #### [address] [address] BMPon 06-26-2023 BUN/Creatinine Ratio 14 ratio Normal 7-27 [facility] ([place] Comment on above: Performed By: #### A BOGEL, ABSGEL, ALB, CBC, ANEU, ADIFF, GFR, BMP #### [address] [address] Calcium [Mass/Vol] 8.6 mg/dL Normal 8.4-10.2 [facility] ([place] Comment on above: Performed By: #### A BOGEL, ABSGEL, ALB, CBC, ANEU, ADIFF, GFR, BMP #### [address] [address] Chloride [Moles/Vol] 104 mmol/L Normal 98-107 [facility]) Comment on above: Performed By: #### A BOGEL, ABSGEL, ALB, CBC, ANEU, ADIFF, GFR, BMP #### [address] [address] CO2 [Moles/Vol] 25 mmol/L Normal 23-31 [facility] [place] Comment on above: Performed By: #### A BOGEL, ABSGEL, ALB, CBC, ANEU, ADIFF, GFR, BMP #### [address] [address] Creatinine [Mass/Vol] 1.26 mg/dL Normal 0.70-1.30 [facility] ([place] Comment on above: Performed By: #### A BOGEL, ABSGEL, ALB, CBC, ANEU, ADIFF, GFR, BMP #### [place] [address] Electrolyte Balance 13.0 mEq/L Normal 4.0-15.0 [facility] ([place] Comment on above: Performed By: #### A BOGEL, ABSGEL, ALB, CBC, ANEU, ADIFF, GFR, BMP #### [place] [address] Glucose [Mass/Vol] 100 mg/dL Normal 83-110 [facility] ([place] Comment on above: Performed By: #### A BOGEL, ABSGEL, ALB, CBC, ANEU, ADIFF, GFR, BMP #### [address] [address] Potassium [Moles/Vol] 4.2 mmol/L Normal 3.5-5.1 [facility] ([place] Comment on above: Performed By: #### A BOGEL, ABSGEL, ALB, CBC, ANEU, ADIFF, GFR, BMP #### [address] [address] Sodium [Moles/Vol] 142 mmol/L Normal 136-145 [facility] ([place] Comment on above: Performed By: #### A BOGEL, ABSGEL, ALB, CBC, ANEU, ADIFF, GFR, BMP #### [place] [address] Urea nitrogen [Mass/Vol] 18 mg/dL Normal 7-18 [facility] [place] Comment on above: Performed By: #### A BOGEL, ABSGEL, ALB, CBC, ANEU, ADIFF, GFR, BMP #### [place] [address] CBCon 06-26-2023 Erythrocyte distribution width (RBC) [Ratio] 13.1 % Normal 11.5-14.5 [facility] [place] Comment on above: Order Comment: Pre-A dmission Testing Performed By: #### A BOGEL, ABSGEL, ALB, CBC, ANEU, ADIFF, GFR, BMP #### [place] [address] Hematocrit (Bld) [Volume fraction] 41.1 % Low 42.0-52.0 [facility] [place] Comment on above: Order Comment: Pre-A dmission Testing Performed By: #### A BOGEL, ABSGEL, ALB, CBC, ANEU, ADIFF, GFR, BMP #### [place] [address] Hgb 14.3 G/dL Normal 14.0-18.0 [facility] [place] Comment on above: Order Comment: Pre-A dmission Testing Performed By: #### A BOGEL, ABSGEL, ALB, CBC, ANEU, ADIFF, GFR, BMP #### [place] [address] MCH (RBC) [Entitic mass] 32.0 pg High 27.0-31.2 [facility] [place] Comment on above: Order Comment: Pre-A dmission Testing Performed By: #### A BOGEL, ABSGEL, ALB, CBC, ANEU, ADIFF, GFR, BMP #### [place] [address] MCHC 34.9 G/dL Normal 31.8-35.4 [facility] [place] Comment on above: Order Comment: Pre-A dmission Testing Performed By: #### A BOGEL, ABSGEL, ALB, CBC, ANEU, ADIFF, GFR, BMP #### [place] [id number] MCV (RBC) [Entitic vol] 91.6 fL Normal 80.0-94.0 [facility] [place] Comment on above: Order Comment: Pre-A dmission Testing Performed By: #### A BOGEL, ABSGEL, ALB, CBC, ANEU, ADIFF, GFR, BMP #### [address] [address] Platelet 206 10 3/mcL Normal 130-400 [facility] [place] Comment on above: Order Comment: Pre-A dmission Testing Performed By: #### A BOGEL, ABSGEL, ALB, CBC, ANEU, ADIFF, GFR, BMP #### [address] [address] Platelet mean volume (Bld) [Entitic vol] 7.8 fL Normal 7.4-10.4 [facility] [place] Comment on above: Order Comment: Pre-A dmission Testing Performed By: #### A BOGEL, ABSGEL, ALB, CBC, ANEU, ADIFF, GFR, BMP #### [address] [address] RBC 4.48 10 6/mcL Normal 4.04-6.13 [facility] [place] Comment on above: Order Comment: Pre-A dmission Testing Performed By: #### A BOGEL, ABSGEL, ALB, CBC, ANEU, ADIFF, GFR, BMP #### [address] [address] WBC 5.7 10 3/mcL Normal 4.6-10.8 [facility] [place] Comment on above: Order Comment: Pre-A dmission Testing Performed By: #### A BOGEL, ABSGEL, ALB, CBC, ANEU, ADIFF, GFR, BMP #### [address] [address] [address] KNEE W/O CONTRAST LEFTon 06-26-2023 CT [...] 06/26/2023 3:35:03 PM Ordering Provider: MISTI Sigala [facility] ([place] LABORATORYOrdered By: Dottie Lou on 06-26-2023 ABO [...] Auto (Unsp spec) [#/Vol] 1.80 10*3/uL 0.83-4.51 [facility] Basophil percentageOrdered B y: Fox Fischer on 12-24-2022 Basophils/100 WBC (Bld) 0.6 % 0-1 [facility] Bilirubin [Mass/Vol] 0.50 mg/dL 0.20-1.00 [facility] Comment on above: For patients on eltr ombopag therapy, use of Dimension Odin TBIL is not recommended. Chloride [Moles/Vol] 104 mmol/L 98-107 [facility] Eosinophils/100 WBC (Bld) 6.1 % 0-5 [facility] Glucose [Mass/Vol] 97 mg/dL 74-106 [facility] Neutrophils (Bld) [#/Vol] 3.4 10*3/uL 2.0-7.7 [facility] Neutrophils/100 WBC (Bld) 53.7 % 47-70 [facility] Potassium [Moles/Vol] 3.9 mmol/L 3.5-5.1 [facility] Protein [Mass/Vol] 7.7 g/dL 6.4-8.2 [facility] Sodium [Moles/Vol] 138 mmol/L 136-145 [facility] WBC (Bld) [#/Vol] 6.4 10*3/uL 4.4-11.0 [facility] Blood erythrocytes count (nu mber/volume)Ordered By: Fox Fischer on 12-24-2022 RBC (Bld) [#/Vol] 4.72 10*6/uL 4.6-6.2 [facility] Blood hemoglobin measurement (mass/volume)Ordered By: Fox Fischer on 12-24-2022 Hemoglobin (Bld) [Mass/Vol] 15.3 g/dL 13.0-16.5 [facility] Blood lymphocytes/100 leukoc ytesOrdered By: Fox Fischer on 12-24-2022 Lymphocytes/100 WBC (Bld) 28.3 % 19-41 [facility] Blood monocytes/100 leukocyt esOrdered By: Fox Fischer on 12-24-2022 Monocytes/100 WBC (Bld) 10.5 % 0-10 [facility] Blood platelet mean volumeOr dered By: Fox Fischer on 12-24-2022 Platelet mean volume (Bld) [Entitic vol] 10.0 fL 6.2-12.0 [facility] Determination of erythrocyte mean corpuscular volume (MCV)Ordered By: Fox Fischer on 12-24-2022 MCV (RBC) [Entitic vol] 97.0 fL 80-94 [facility] Hematocrit Auto (Bld) [Volum e fraction]Ordered By: Fox Fischer on 12-24-2022 Hematocrit (Bld) [Volume fraction] 45.8 % 40-54 [facility] Laboratory - Chemistry and C hemistry - challengeOrdered By: [facility] on 12-24-2022 ALP [Catalytic activity/Vol] 63 U/L 45-117 [facility] ALT [Catalytic activity/Vol] 55 U/L 16-61 [facility] CO2 [Moles/Vol] 28.0 mmol/L 21.0-32.0 [facility] Globulin (S) [Mass/Vol] 3.6 g/dL 2.2-4.2 [facility] Urea nitrogen/Creatinine [Mass ratio] 14.7 mg/mg 10-20 [facility] Laboratory - Hematology and Cell countsOrdered By: [facility] 12-24-2022 Erythrocyte distribution width (RBC) [Entitic vol] 44.4 fL 35.1-43.9 [facility] Erythrocyte distribution width (RBC) [Ratio] 12.4 % 11.6-14.6 [facility] Immature granulocytes/100 WBC (Bld) 0.800 % 0.0-0.9 [facility] Comment on above: IG% - Immature Granu locytes (promyelocytes, myelocytes and metamyelocytes) > 1% indicates that a LEFT SHIFT is Present. MCH (RBC) [Entitic mass] 32.4 pg 27.0-32.0 [facility] Nucleated RBC/100 WBC (Bld) [Ratio] 0 % 0-5 [facility] MCHC Auto (RBC) [Mass/Vol]Or dered By: Fox Fischer on 12-24-2022 MCHC (RBC) [Mass/Vol] 33.4 g/dL 32-36 [facility] No Panel InformationOrdered By: Fox Fischer on 12-24-2022 Estimated GFR (MDRD) Amer 65 mL/min >60 [facility] Comment on above: GFR Calc Estimated GFR (MDRD) Non-Af Amer 54 mL/min >60 [facility] Comment on above: Non- GFR Calc Thyroid Stimulating Hormone (TSH) 2.61 uIU/mL 0.358-3.74 [facility] Vitamin D 25-Hydroxy 32.8 ng/mL [facility] Comment on above: Vitamin D 25(OH) Sta tus Range Deficiency <20 ng/mL (50nmol/L) Insufficiency 20 - 30 ng/mL (50 - 75 nmol/L) Sufficiency 30 - 100 ng/mL (75 - 250 nmol/L) Toxicity >100 ng/mL (>250 nmol/L) Platelets bldOrdered By: Fox Fischer on 12-24-2022 Platelets (Bld) [#/Vol] 212 10*3/uL 150-450 [facility] Serum or plasma albumin prem urement (mass/volume)Ordered By: Fox Fischer on 12-24-2022 Albumin [Mass/Vol] 4.1 g/dL 3.2-5.0 [facility] Serum or plasma albumin/glob ulin mass ratioOrdered By: Fox Fischer on 12-24-2022 Albumin/Globulin [Mass ratio] 1.1 {ratio} 0.9-2.4 [facility] Serum or plasma calcium prem urement (mass/volume)Ordered By: Fox Fischer on 12-24-2022 Calcium [Mass/Vol] 9.5 mg/dL 8.5-10.1 [facility] Serum or plasma creatinine m easurement (mass/volume)Ordered By: Fox Fischer on 12-24-2022 Creatinine [Mass/Vol] 1.36 mg/dL 0.70-1.30 [facility] Comment on above: The validity of the calculated GFR & GFRAA in patients over 70 years has not been determined. Clinical correlation is essential. Serum or plasma urea nitroge n measurement (mass/volume)Ordered By: Fox Fischer on 12-24-2022 Urea nitrogen [Mass/Vol] 20 mg/dL 7-18 [facility] Thin prep Papanicolaou smear with manual screeningOrdered By: Fox Fischer on 12-24-2022 Thin prep Papanicolaou smear with manual screening 34 U/L 15-37 [facility] Thin prep Papanicolaou smear with manual screening 6 5-15 [facility] Absolute lymphocyte countOrd ered By: Amita Brenner on 11-29-2022 Lymphocytes Auto (Unsp spec) [#/Vol] 1.55 10*3/uL 0.83-4.51 [facility] Bacteria identified Cx Nom ( Wound)Ordered By: Fox Fischer on 11-29-2022 Wound Culture Staphylococcus capitis [facility] Basophil percentageOrdered B y: Amita Brenner on 11-29-2022 Basophils/100 WBC (Bld) 1.0 % 0-1 [facility] Eosinophils/100 WBC (Bld) 6.5 % 0-5 [facility] Neutrophils (Bld) [#/Vol] 3.7 10*3/uL 2.0-7.7 [facility] Neutrophils/100 WBC (Bld) 57.9 % 47-70 [facility] WBC (Bld) [#/Vol] 6.3 10*3/uL 4.4-11.0 [facility] Basophil percentage 2.5 mg/dL 2.5-4.9 [facility] Chloride [Moles/Vol] 107 mmol/L 98-107 [facility] Glucose [Mass/Vol] 108 mg/dL 74-106 [facility] Comment on above: Fasting Glucose resu lt from 100 to 125 mg/dL suggests IMPAIRED HOMEOSTASIS per A.D.A. criteria. Potassium [Moles/Vol] 4.0 mmol/L 3.5-5.1 [facility] Sodium [Moles/Vol] 140 mmol/L 136-145 [facility] Blood erythrocytes count (nu mber/volume)Ordered By: Amita Brenner on 11-29-2022 RBC (Bld) [#/Vol] 4.59 10*6/uL 4.6-6.2 [facility] Blood hemoglobin measurement (mass/volume)Ordered By: Amita Brenner on 11-29-2022 Hemoglobin (Bld) [Mass/Vol] 14.8 g/dL 13.0-16.5 [facility] Blood lymphocytes/100 leukoc ytesOrdered By: Amita Brenner on 11-29-2022 Lymphocytes/100 WBC (Bld) 24.6 % 19-41 [facility] Blood monocytes/100 leukocyt esOrdered By: Amita Brenner on 11-29-2022 Monocytes/100 WBC (Bld) 9.0 % 0-10 [facility] Blood platelet mean volumeOr dered By: Amita Brenner on 11-29-2022 Platelet mean volume (Bld) [Entitic vol] 9.9 fL 6.2-12.0 [facility] Determination of erythrocyte mean corpuscular volume (MCV)Ordered By: Amita Brenner on 11-29-2022 MCV (RBC) [Entitic vol] 98.3 fL 80-94 [facility] Erythrocyte sedimentation ra teOrdered By: Amita Brenner on 11-29-2022 ESR (Bld) [Velocity] 5 mm/h 0-20 [facility] Gram stain for investigation of transfusion reactionOrdered By: Fox Fischer on 11-29-2022 Microscopic observation Gram stain Nom (Unsp spec) [facility] Hematocrit Auto (Bld) [Volum e fraction]Ordered By: Amita Brenner on 11-29-2022 Hematocrit (Bld) [Volume fraction] 45.1 % 40-54 [facility] Laboratory - Chemistry and C hemistry - challengeOrdered By: Amita Brenner on 11-29-2022 CO2 [Moles/Vol] 30.0 mmol/L 21.0-32.0 [facility] Urea nitrogen/Creatinine [Mass ratio] 12.6 mg/mg 10-20 [facility] Laboratory - Hematology and Cell countsOrdered By: Amita Brenner on 11-29-2022 Erythrocyte distribution width (RBC) [Entitic vol] 46.6 fL 35.1-43.9 [facility] Erythrocyte distribution width (RBC) [Ratio] 13.1 % 11.6-14.6 [facility] Immature granulocytes/100 WBC (Bld) 1.000 % 0.0-0.9 [facility] Comment on above: IG% - Immature Granu locytes (promyelocytes, myelocytes and metamyelocytes) > 1% indicates that a LEFT SHIFT is Present. MCH (RBC) [Entitic mass] 32.2 pg 27.0-32.0 [facility] Nucleated RBC/100 [facility] (Bld) [[facility]] 0 [facility] [Mass/Vol]Or dered By: Amita Brenner on 11-29-2022 MCHC (RBC) [Mass/Vol] 32.8 g/dL 32-36 [facility] No Panel InformationOrdered By: Amita Brenner on 11-29-2022 Methicillin-Resist S.aureus DNA PCR Negative Negative [facility] Estimated GFR (MDRD) Amer 70 mL/min >60 [facility] Comment on above: GFR Calc Estimated GFR (MDRD) Non-Af Amer 58 mL/min >60 [facility] Comment on above: Non- GFR Calc Platelets bldOrdered By: Raegan Brenner on 11-29-2022 Platelets (Bld) [#/Vol] 183 10*3/uL 150-450 [facility] Serum or plasma C reactive p rotein measurement (mass/volume)Ordered By: Amita Brenner on 11-29-2022 CRP [Mass/Vol] mg/L 0.0-3.0 [facility] Comment on above: C-Reactive Protein ( CRP) provides useful information for thediagnosis, therapy and monitoring of inflammatory processesand associated diseases. For the evaluation of Relative Riskfor Cardiovascular Disease, a High Sensitivity CRP (HSCRP)should be ordered. Serum or plasma albumin prem urement (mass/volume)Ordered By: Amita Brenner on 11-29-2022 Albumin [Mass/Vol] 4.1 g/dL 3.2-5.0 [facility] Serum or plasma calcium prem urement (mass/volume)Ordered By: Amita Brenner on 11-29-2022 Calcium [Mass/Vol] 9.0 mg/dL 8.5-10.1 [facility] Serum or plasma creatinine m easurement (mass/volume)Ordered By: Amita Brenner on 11-29-2022 Creatinine [Mass/Vol] 1.27 mg/dL 0.70-1.30 [facility] Comment on above: The validity of the calculated GFR & GFRAA in patients over 70 years has not been determined. Clinical correlation is essential. Serum or plasma urea nitroge n measurement (mass/volume)Ordered By: Amita Brenner on 11-29-2022 Urea nitrogen [Mass/Vol] 16 mg/dL 7-18 [facility] Staphylococcus aureus DNA de tection by probe and target amplification methodOrdered By: Amita Brenner on 11-29-2022 S. aureus DNA CONNER+probe Ql (Unsp spec) Negative Negative [facility] Laboratory - Chemistry and C hemistry - challengeOrdered By: Misti Shirley on 09-21-2022 Magnesium [Mass/Vol] 2.2 mg/dL 1.6-2.6 [facility] No Panel InformationOrdered By: Misti Shirley on 09-21-2022 Nasal Screen MRSA/MSSA [facility] Thyroid Stimulating Hormone (TSH) 2.21 uIU/mL 0.358-3.74 [facility] Absolute lymphocyte countOrd ered By: Fox Fischer on 09-03-2022 Lymphocytes Auto (Unsp spec) [#/Vol] 2.03 10*3/uL 0.83-4.51 [facility] Basophil percentageOrdered B y: Fox Fischer on 09-03-2022 Basophils/100 WBC (Bld) 0.6 % 0-1 [facility] Bilirubin [Mass/Vol] 0.40 mg/dL 0.20-1.00 [facility] Comment on above: For patients on eltr ombopag therapy, use of Dimension Odin TBIL is not recommended. Chloride [Moles/Vol] 107 mmol/L 98-107 [facility] Eosinophils/100 WBC (Bld) 7.2 % 0-5 [facility] Glucose [Mass/Vol] 110 mg/dL 74-106 [facility] Comment on above: Fasting Glucose resu lt from 100 to 125 mg/dL suggests IMPAIRED HOMEOSTASIS per A.D.A. criteria. Neutrophils (Bld) [#/Vol] 3.2 10*3/uL 2.0-7.7 [facility] Neutrophils/100 WBC (Bld) 49.5 % 47-70 [facility] Potassium [Moles/Vol] 4.0 mmol/L 3.5-5.1 [facility] Protein [Mass/Vol] 7.6 g/dL 6.4-8.2 [facility] Sodium [Moles/Vol] 139 mmol/L 136-145 [facility] WBC (Bld) [#/Vol] 6.4 10*3/uL 4.4-11.0 [facility] Blood erythrocytes count (nu mber/volume)Ordered By: Fox Fischer on 09-03-2022 RBC (Bld) [#/Vol] 4.64 10*6/uL 4.6-6.2 [facility] Blood hemoglobin measurement (mass/volume)Ordered By: Fox Fischer on 09-03-2022 Hemoglobin (Bld) [Mass/Vol] 14.8 g/dL 13.0-16.5 [facility] Blood lymphocytes/100 leukoc ytesOrdered By: Fox Fischer on 09-03-2022 Lymphocytes/100 WBC (Bld) 31.8 % 19-41 [facility] Blood monocytes/100 leukocyt esOrdered By: Fox Fischer on 09-03-2022 Monocytes/100 WBC (Bld) 10.3 % 0-10 [facility] Blood platelet mean volumeOr dered By: Fox Fischer on 09-03-2022 Platelet mean volume (Bld) [Entitic vol] 10.0 fL 6.2-12.0 [facility] Determination of erythrocyte mean corpuscular volume (MCV)Ordered By: Fox iFscher on 09-03-2022 MCV (RBC) [Entitic vol] 96.3 fL 80-94 [facility] Hematocrit Auto (Bld) [Volum e fraction]Ordered By: Fox Fischer on 09-03-2022 Hematocrit (Bld) [Volume fraction] 44.7 % 40-54 [facility] INR in Blood by Coagulation assayOrdered By: Fox Fischer on 09-03-2022 INR Coag (Bld) [Relative time] 1.2 {INR} [facility] Laboratory - Chemistry and C hemistry - challengeOrdered By: Fox Fischer on 09-03-2022 ALP [Catalytic activity/Vol] 59 U/L 45-117 [facility] ALT [Catalytic activity/Vol] 47 U/L 16-61 [facility] CO2 [Moles/Vol] 25.0 mmol/L 21.0-32.0 [facility] Globulin (S) [Mass/Vol] 3.8 g/dL 2.2-4.2 [facility] Urea nitrogen/Creatinine [Mass ratio] 15.7 mg/mg 10-20 [facility] Laboratory - CoagulationOrde red By: Fox Fischer on 09-03-2022 PT Coag (PPP) [Time] 15.0 s 11.7-14.9 [facility] Laboratory - Hematology and Cell countsOrdered By: Fox Fischer on 09-03-2022 Erythrocyte distribution width (RBC) [Entitic vol] 42.6 fL 35.1-43.9 [facility] Erythrocyte distribution width (RBC) [Ratio] 12.1 % 11.6-14.6 [facility] Immature granulocytes/100 WBC (Bld) 0.600 % 0.0-0.9 [facility] Comment on above: IG% - Immature Granu locytes (promyelocytes, myelocytes and metamyelocytes) > 1% indicates that a LEFT SHIFT is Present. MCH (RBC) [Entitic mass] 31.9 pg 27.0-32.0 [facility] Nucleated RBC/100 WBC (Bld) [Ratio] 0 % 0-5 [facility] MCHC Auto (RBC) [Mass/Vol]Or dered By: Fox Fischer on 09-03-2022 MCHC (RBC) [Mass/Vol] 33.1 g/dL 32-36 [facility] No Panel InformationOrdered By: Fox Fischer on 09-03-2022 Estimated GFR (MDRD) Amer 63 mL/min >60 [facility] Comment on above: GFR Calc Estimated GFR (MDRD) Non-Af Amer 52 mL/min >60 [facility] Comment on above: Non- GFR Calc Platelets bldOrdered By: Fox Fischer on 09-03-2022 Platelets (Bld) [#/Vol] 174 10*3/uL 150-450 [facility] Serum or plasma albumin prem urement (mass/volume)Ordered By: Fox Fischer on 09-03-2022 Albumin [Mass/Vol] 3.8 g/dL 3.2-5.0 [facility] Serum or plasma albumin/glob ulin mass ratioOrdered By: Fox Fischer on 09-03-2022 Albumin/Globulin [Mass ratio] 1.0 {ratio} 0.9-2.4 [facility] Serum or plasma calcium prem urement (mass/volume)Ordered By: Fox Fischer on 09-03-2022 Calcium [Mass/Vol] 9.1 mg/dL 8.5-10.1 [facility] Serum or plasma creatinine m easurement (mass/volume)Ordered By: Fox Fischer on 09-03-2022 Creatinine [Mass/Vol] 1.40 mg/dL 0.70-1.30 [facility] Comment on above: The validity of the calculated GFR & GFRAA in patients over 70 years has not been determined. Clinical correlation is essential. Serum or plasma urea nitroge n measurement (mass/volume)Ordered By: Fox Fischer on 09-03-2022 Urea nitrogen [Mass/Vol] 22 mg/dL 7-18 [facility] Thin prep Papanicolaou smear with manual screeningOrdered By: Fox Fischer on 09-03-2022 Thin prep Papanicolaou smear with manual screening 35 U/L 15-37 [facility] Thin prep Papanicolaou smear with manual screening 7 5-15 [facility] No Panel InformationOrdered By: Dr. Vazquez on 06-28-2022 Prostate Specific Antigen Screen 2.00 ng/mL 0.00-4.00 [facility] Comment on above: This test was perfor med using the TPSA assay method for theOmni[employer] chemistry system. Values obtained with differentassay methods cannot be used interchangably.When changing PSA assays in the course of monitoring apatient, additional sequential testing should be carriedout to confirm baseline values. Absolute lymphocyte countOrd ered By: Dr. Fischer on 06-25-2022 Lymphocytes Auto (Unsp spec) [#/Vol] 1.73 10*3/uL 0.83-4.51 [facility] Basophil percentageOrdered B y: Dr. Fischer on 06-25-2022 Basophils/100 WBC (Bld) 0.9 % 0-1 [facility] Bilirubin [Mass/Vol] 0.80 mg/dL 0.20-1.00 [facility] Comment on above: For patients on eltr ombopag therapy, use of Dimension Odin TBIL is not recommended. Chloride [Moles/Vol] 106 mmol/L 98-107 [facility] Eosinophils/100 WBC (Bld) 9.4 % 0-5 [facility] Glucose [Mass/Vol] 109 mg/dL 74-106 [facility] Comment on above: Fasting Glucose resu lt from 100 to 125 mg/dL suggests IMPAIRED HOMEOSTASIS per A.D.A. criteria. Neutrophils (Bld) [#/Vol] 2.5 10*3/uL 2.0-7.7 [facility] Neutrophils/100 WBC (Bld) 47.2 % 47-70 [facility] Potassium [Moles/Vol] 4.2 mmol/L 3.5-5.1 [facility] Protein [Mass/Vol] 7.3 g/dL 6.4-8.2 [facility] Sodium [Moles/Vol] 140 mmol/L 136-145 [facility] Testosterone [Mass/Vol] 650.52 ng/dL [facility] Comment on above: CENTRAL 90% REFERENC E RANGES MALE AGE <50 197.44 - 669.58 ng/dL MALE AGE > or = 50 187.72 - 684.19 ng/dL FEMALE AGE <50 8.38 - 35.01 ng/dL FEMALE AGE > or = 50 <7.00 - 35.92 ng/dL Effective as of 10/11/20 WBC (Bld) [#/Vol] 5.3 10*3/uL 4.4-11.0 [facility] Blood erythrocytes count (nu mber/volume)Ordered By: Dr. Fischer on 06-25-2022 RBC (Bld) [#/Vol] 4.73 10*6/uL 4.6-6.2 [facility] Blood hemoglobin measurement (mass/volume)Ordered By: Dr. Fischer on 06-25-2022 Hemoglobin (Bld) [Mass/Vol] 15.2 g/dL 13.0-16.5 [facility] Blood lymphocytes/100 leukoc ytesOrdered By: Dr. Fischer on 06-25-2022 Lymphocytes/100 WBC (Bld) 32.5 % 19-41 [facility] Blood monocytes/100 leukocyt esOrdered By: Dr. Fischer on 06-25-2022 Monocytes/100 WBC (Bld) 9.6 % 0-10 [facility] Blood platelet mean volumeOr dered By: Dr. Fischer on 06-25-2022 Platelet mean volume (Bld) [Entitic vol] 10.5 fL 6.2-12.0 [facility] Determination of erythrocyte mean corpuscular volume (MCV)Ordered By: Dr. Fischer on 06-25-2022 MCV (RBC) [Entitic vol] 96.4 fL 80-94 [facility] Hematocrit Auto (Bld) [Volum e fraction]Ordered By: Dr. Fischer on 06-25-2022 Hematocrit (Bld) [Volume fraction] 45.6 % 40-54 [facility] Laboratory - Chemistry and C hemistry - challengeOrdered By: Dr. Fischer on 06-25-2022 ALP [Catalytic activity/Vol] 63 U/L 45-117 [facility] ALT [Catalytic activity/Vol] 57 U/L 16-61 [facility] CO2 [Moles/Vol] 28.0 mmol/L 21.0-32.0 [facility] Globulin (S) [Mass/Vol] 3.3 g/dL 2.2-4.2 [facility] Urea nitrogen/Creatinine [Mass ratio] 14.1 mg/mg 10-20 [facility] Laboratory - Hematology and Cell countsOrdered By: Dr. Fischer on 06-25-2022 Erythrocyte distribution width (RBC) [Entitic vol] 42.6 fL 35.1-43.9 [facility] Erythrocyte distribution width (RBC) [Ratio] 12.1 % 11.6-14.6 [facility] Immature granulocytes/100 WBC (Bld) 0.400 % 0.0-0.9 [facility] Comment on above: IG% - Immature Granu locytes (promyelocytes, myelocytes and metamyelocytes) > 1% indicates that a LEFT SHIFT is Present. MCH (RBC) [Entitic mass] 32.1 pg 27.0-32.0 [facility] Nucleated RBC/100 WBC (Bld) [Ratio] 0 % 0-5 [facility] MCHC Auto (RBC) [Mass/Vol]Or dered By: Dr. Fischer on 06-25-2022 MCHC (RBC) [Mass/Vol] 33.3 g/dL 32-36 [facility] No Panel InformationOrdered By: Dr. Fischer on 06-25-2022 Estimated GFR (MDRD) Amer 66 mL/min >60 [facility] Comment on above: GFR Calc Estimated GFR (MDRD) Non-Af Amer 54 mL/min >60 [facility] Comment on above: Non- GFR Calc Thyroid Stimulating Hormone (TSH) 2.61 uIU/mL 0.358-3.74 [facility] Vitamin D 25-Hydroxy 32.7 ng/mL [facility] Comment on above: Vitamin D 25(OH) Sta tus Range Deficiency <20 ng/mL (50nmol/L) Insufficiency 20 - 30 ng/mL (50 - 75 nmol/L) Sufficiency 30 - 100 ng/mL (75 - 250 nmol/L) Toxicity >100 ng/mL (>250 nmol/L) Platelets bldOrdered By: Dr. Fischer on 06-25-2022 Platelets (Bld) [#/Vol] 194 10*3/uL 150-450 [facility] Serum or plasma albumin prem urement (mass/volume)Ordered By: Dr. Fischer on 06-25-2022 Albumin [Mass/Vol] 4.0 g/dL 3.2-5.0 [facility] Serum or plasma albumin/glob ulin mass ratioOrdered By: Dr. Fischer on 06-25-2022 Albumin/Globulin [Mass ratio] 1.2 {ratio} 0.9-2.4 [facility] Serum or plasma calcium prem urement (mass/volume)Ordered By: Dr. Fischer on 06-25-2022 Calcium [Mass/Vol] 8.9 mg/dL 8.5-10.1 [facility] Serum or plasma creatinine m easurement (mass/volume)Ordered By: Dr. Fischer on 06-25-2022 Creatinine [Mass/Vol] 1.35 mg/dL 0.70-1.30 [facility] Comment on above: The validity of the calculated GFR & GFRAA in patients over 70 years has not been determined. Clinical correlation is essential. Serum or plasma urea nitroge n measurement (mass/volume)Ordered By: Dr. Fischer on 06-25-2022 Urea nitrogen [Mass/Vol] 19 mg/dL 7-18 [facility] Thin prep Papanicolaou smear with manual screeningOrdered By: Dr. Fischer on 06-25-2022 Thin prep Papanicolaou smear with manual screening 42 U/L 15-37 [facility] Thin prep Papanicolaou smear with manual screening 6 5-15 [facility] Basophil percentageOrdered B y: Dr. Brenner on 06-07-2022 Basophil percentage 2.6 mg/dL 2.5-4.9 [facility] Chloride [Moles/Vol] 104 mmol/L 98-107 [facility] Glucose [Mass/Vol] 111 mg/dL 74-106 [facility] Comment on above: Fasting Glucose resu lt from 100 to 125 mg/dL suggests IMPAIRED HOMEOSTASIS per A.D.A. criteria. Potassium [Moles/Vol] 4.2 mmol/L 3.5-5.1 [facility] Sodium [Moles/Vol] 140 mmol/L 136-145 [facility] Laboratory - Chemistry and C hemistry - challengeOrdered By: Dr. Brenner on 06-07-2022 CO2 [Moles/Vol] 27.0 mmol/L 21.0-32.0 [facility] Urea nitrogen/Creatinine [Mass ratio] 15.0 mg/mg 10-20 [facility] No Panel InformationOrdered By: Dr. Brenner on 06-07-2022 Estimated GFR (MDRD) Amer 67 mL/min >60 [facility] Comment on above: GFR Calc Estimated GFR (MDRD) Non-Af Amer 55 mL/min >60 [facility] Comment on above: Non- GFR Calc Serum or plasma albumin prem urement (mass/volume)Ordered By: Dr. Brenner on 06-07-2022 Albumin [Mass/Vol] 4.0 g/dL 3.2-5.0 [facility] Serum or plasma calcium prem urement (mass/volume)Ordered By: Dr. Brenner on 06-07-2022 Calcium [Mass/Vol] 9.1 mg/dL 8.5-10.1 [facility] Serum or plasma creatinine m easurement (mass/volume)Ordered By: Dr. Brenner on 06-07-2022 Creatinine [Mass/Vol] 1.33 mg/dL 0.70-1.30 [facility] Comment on above: The validity of the calculated GFR & GFRAA in patients over 70 years has not been determined. Clinical correlation is essential. Serum or plasma urea nitroge n measurement (mass/volume)Ordered By: Dr. Brenner on 06-07-2022 Urea nitrogen [Mass/Vol] 20 mg/dL 7-18 [facility] Absolute lymphocyte counton 12-21-2021 Lymphocytes Auto (Unsp spec) [#/Vol] 1.72 10*3/uL 0.83-4.51 [facility] Work Phone: Basophil percentageon 2021 Basophils/100 WBC (Bld) 0.9 % 0-1 [facility] Work Phone: Bilirubin [Mass/Vol] 0.70 mg/dL 0.20-1.00 [facility] Work Phone: Comment on above: For patients on eltr ombopag therapy, use of Dimension Odin TBIL is not recommended. Chloride [Moles/Vol] 107 mmol/L 98-107 [facility] Work Phone: Eosinophils/100 WBC (Bld) 10.4 % 0-5 [facility] Work Phone: Glucose [Mass/Vol] 121 mg/dL 74-106 [facility] Work Phone: Comment on above: Fasting Glucose resu lt from 100 to 125 mg/dL suggests IMPAIRED HOMEOSTASIS per A.D.A. criteria. Neutrophils (Bld) [#/Vol] 1.9 10*3/uL 2.0-7.7 [facility] Work Phone: Neutrophils/100 WBC (Bld) 41.3 % 47-70 [facility] Work Phone: Potassium [Moles/Vol] 3.9 mmol/L 3.5-5.1 [facility] Work Phone: Protein [Mass/Vol] 7.6 g/dL 6.4-8.2 [facility] Work Phone: Sodium [Moles/Vol] 141 mmol/L 136-145 [facility] Work Phone: Testosterone [Mass/Vol] 689.36 ng/dL [facility] Work Phone: Comment on above: CENTRAL 90% REFERENC E RANGES MALE AGE <50 197.44 - 669.58 ng/dL MALE AGE > or = 50 187.72 - 684.19 ng/dL FEMALE AGE <50 8.38 - 35.01 ng/dL FEMALE AGE > or = 50 <7.00 - 35.92 ng/dL Effective as of 10/11/20 WBC (Bld) [#/Vol] 4.7 10*3/uL 4.4-11.0 [facility] Work Phone: Blood erythrocytes count (nu mber/volume)on 12-21-2021 RBC (Bld) [#/Vol] 4.50 10*6/uL 4.6-6.2 [facility] Work Phone: Blood hemoglobin measurement (mass/volume)on 12-21-2021 Hemoglobin (Bld) [Mass/Vol] 14.6 g/dL 13.0-16.5 [facility] Work Phone: Blood lymphocytes/100 leukoc yteson 12-21-2021 Lymphocytes/100 WBC (Bld) 36.6 % 19-41 [facility] Work Phone: Blood monocytes/100 leukocyt eson 12-21-2021 Monocytes/100 WBC (Bld) 10.6 % 0-10 [facility] Work Phone: Blood platelet mean volumeon 12-21-2021 Platelet mean volume (Bld) [Entitic vol] 10.7 fL 6.2-12.0 [facility] Work Phone: Determination of erythrocyte mean corpuscular volume (MCV)on 12-21-2021 MCV (RBC) [Entitic vol] 97.6 fL 80-94 [facility] Work Phone: Hematocrit Auto (Bld) [Volum e fraction]on 12-21-2021 Hematocrit (Bld) [Volume fraction] 43.9 % 40-54 [facility] Work Phone: Laboratory - Chemistry and C hemistry - challengeon 12-21-2021 ALP [Catalytic activity/Vol] 55 U/L 45-117 [facility] Work Phone: [phone] ALT [Catalytic activity/Vol] 44 U/L 16-61 [facility] Work Phone: [phone] CO2 [Moles/Vol] 25.0 mmol/L 21.0-32.0 [facility] Work Phone: [phone] Globulin (S) [Mass/Vol] 3.6 g/dL 2.2-4.2 [facility] Work Phone: [phone] Urea nitrogen/Creatinine [Mass ratio] 10.7 mg/mg 10-20 [facility] Work Phone: [phone] Laboratory - Hematology and Cell countson 12-21-2021 Erythrocyte distribution width (RBC) [Entitic vol] 43.6 fL 35.1-43.9 [facility] Work Phone: [phone] Erythrocyte distribution width (RBC) [Ratio] 12.2 % 11.6-14.6 [facility] Work Phone: [phone] Immature granulocytes/100 WBC (Bld) 0.200 % 0.0-0.9 [facility] Work Phone: [phone] Comment on above: IG% - Immature Granu locytes (promyelocytes, myelocytes and metamyelocytes) > 1% indicates that a LEFT SHIFT is Present. MCH (RBC) [Entitic mass] 32.4 pg 27.0-32.0 [facility] Work Phone: [phone] Nucleated RBC/100 WBC (Bld) [Ratio] 0 % 0-5 [facility] Work Phone: [phone] MCHC Auto (RBC) [Mass/Vol]on 12-21-2021 MCHC (RBC) [Mass/Vol] 33.3 g/dL 32-36 [facility] Work Phone: [phone] No Panel Informationon 12-21 Estimated GFR (MDRD) Amer 59 mL/min >60 [facility] Work Phone: [phone] Comment on above: GFR Calc Estimated GFR (MDRD) Non-Af Amer 49 mL/min >60 [facility] Work Phone: Comment on above: Non- GFR Calc Thyroid Stimulating Hormone (TSH) 1.46 uIU/mL 0.358-3.74 [facility] Work Phone: Vitamin D 25-Hydroxy 33.0 ng/mL [facility] Work Phone: Comment on above: Vitamin D 25(OH) Sta tus Range Deficiency <20 ng/mL (50nmol/L) Insufficiency 20 - 30 ng/mL (50 - 75 nmol/L) Sufficiency 30 - 100 ng/mL (75 - 250 nmol/L) Toxicity >100 ng/mL (>250 nmol/L) Platelets bldon 12-21-2021 Platelets (Bld) [#/Vol] 197 10*3/uL 150-450 [facility] Work Phone: Serum or plasma albumin prem urement (mass/volume)on 12-21-2021 Albumin [Mass/Vol] 4.0 g/dL 3.2-5.0 [facility] Work Phone: Serum or plasma albumin/glob ulin mass ratioon 12-21-2021 Albumin/Globulin [Mass ratio] 1.1 {ratio} 0.9-2.4 [facility] Work Phone: Serum or plasma calcium prem urement (mass/volume)on 12-21-2021 Calcium [Mass/Vol] 9.2 mg/dL 8.5-10.1 [facility] Work Phone: [phone] Serum or plasma creatinine m easurement (mass/volume)on 12-21-2021 Creatinine [Mass/Vol] 1.49 mg/dL 0.70-1.30 [facility] Work Phone: Comment on above: The validity of the calculated GFR & GFRAA in patients over 70 years has not been determined. Clinical correlation is essential. Serum or plasma urea nitroge n measurement (mass/volume)on 12-21-2021 Urea nitrogen [Mass/Vol] 16 mg/dL 7-18 [facility] Work Phone: Thin prep Papanicolaou smear with manual screeningon 12-21-2021 Thin prep Papanicolaou smear with manual screening 34 U/L 15-37 [facility] Work Phone: Thin prep Papanicolaou smear with manual screening 9 5-15 [facility] Work Phone: Basophil percentageon 2021 Basophil percentage 2.5 mg/dL 2.5-4.9 [facility] Work Phone: Chloride [Moles/Vol] 107 mmol/L 98-107 [facility] Work Phone: Glucose [Mass/Vol] 97 mg/dL 74-106 [facility] Work Phone: Potassium [Moles/Vol] 3.9 mmol/L 3.5-5.1 [facility] Work Phone: Sodium [Moles/Vol] 141 mmol/L 136-145 [facility] Work Phone: Laboratory - Chemistry and C hemistry - challengeon 12-07-2021 CO2 [Moles/Vol] 26.0 mmol/L 21.0-32.0 [facility] Work Phone: Urea nitrogen/Creatinine [Mass ratio] 14.1 mg/mg 10-20 [facility] Work Phone: No Panel Informationon 12-07 Estimated GFR (MDRD) Amer 62 mL/min >60 [facility] Work Phone: Comment on above: GFR Calc Estimated GFR (MDRD) Non-Af Amer 51 mL/min >60 [facility] Work Phone: Comment on above: Non- GFR Calc Serum or plasma albumin prem urement (mass/volume)on 12-07-2021 Albumin [Mass/Vol] 3.9 g/dL 3.2-5.0 [facility] Work Phone: Serum or plasma calcium prem urement (mass/volume)on 12-07-2021 Calcium [Mass/Vol] 9.2 mg/dL 8.5-10.1 [facility] Work Phone: Serum or plasma creatinine m easurement (mass/volume)on 12-07-2021 Creatinine [Mass/Vol] 1.42 mg/dL 0.70-1.30 [facility] Work Phone: Comment on above: The validity of the calculated GFR & GFRAA in patients over 70 years has not been determined. Clinical correlation is essential. Serum or plasma urea nitroge n measurement (mass/volume)on 12-07-2021 Urea nitrogen [Mass/Vol] 20 mg/dL 7-18 [facility] Work Phone: Basophil percentageon 2021 Basophil percentage 2.8 mg/dL 2.5-4.9 [facility] Work Phone: Chloride [Moles/Vol] 109 mmol/L 98-107 [facility] Work Phone: Glucose [Mass/Vol] 100 mg/dL 74-106 [facility] Work Phone: Comment on above: Fasting Glucose resu lt from 100 to 125 mg/dL suggests IMPAIRED HOMEOSTASIS per A.D.A. criteria. Potassium [Moles/Vol] 3.9 mmol/L 3.5-5.1 [facility] Work Phone: Sodium [Moles/Vol] 141 mmol/L 136-145 [facility] Work Phone: Laboratory - Chemistry and C hemistry - challengeon 11-15-2021 CO2 [Moles/Vol] 25.0 mmol/L 21.0-32.0 [facility] Work Phone: Urea nitrogen/Creatinine [Mass ratio] 12.5 mg/mg 10-20 [facility] Work Phone: No Panel Informationon 11-15 Estimated GFR (MDRD) Amer 65 mL/min >60 [facility] Work Phone: Comment on above: GFR Calc Estimated GFR (MDRD) Non-Af Amer 54 mL/min >60 [facility] Work Phone: Comment on above: Non- GFR Calc Serum or plasma albumin prem urement (mass/volume)on 11-15-2021 Albumin [Mass/Vol] 3.8 g/dL 3.2-5.0 [facility] Work Phone: Serum or plasma calcium prem urement (mass/volume)on 11-15-2021 Calcium [Mass/Vol] 9.0 mg/dL 8.5-10.1 [facility] Work Phone: Serum or plasma creatinine m easurement (mass/volume)on 11-15-2021 Creatinine [Mass/Vol] 1.36 mg/dL 0.70-1.30 [facility] Work Phone: Comment on above: The validity of the calculated GFR & GFRAA in patients over 70 years has not been determined. Clinical correlation is essential. Serum or plasma urea nitroge n measurement (mass/volume)on 11-15-2021 Urea nitrogen [Mass/Vol] 17 mg/dL 7-18 [facility] Work Phone: Basophil percentageon 2021 Basophil percentage 3.0 mg/dL 2.5-4.9 [facility] Work Phone: Chloride [Moles/Vol] 109 mmol/L 98-107 [facility] Work Phone: Glucose [Mass/Vol] 105 mg/dL 74-106 [facility] Work Phone: Comment on above: Fasting Glucose resu lt from 100 to 125 mg/dL suggests IMPAIRED HOMEOSTASIS per A.D.A. criteria. Potassium [Moles/Vol] 4.3 mmol/L 3.5-5.1 [facility] Work Phone: Sodium [Moles/Vol] 140 mmol/L 136-145 [facility] Work Phone: Laboratory - Chemistry and C hemistry - challengeon 10-23-2021 CO2 [Moles/Vol] 25.0 mmol/L 21.0-32.0 [facility] Work Phone: Urea nitrogen/Creatinine [Mass ratio] 14.4 mg/mg 10-20 [facility] Work Phone: No Panel Informationon 10-23 Estimated GFR (MDRD) Amer 57 mL/min >60 [facility] Work Phone: Comment on above: GFR Calc Estimated GFR (MDRD) Non-Af Amer 47 mL/min >60 [facility] Work Phone: Comment on above: Non- GFR Calc Serum or plasma albumin prem urement (mass/volume)on 10-23-2021 Albumin [Mass/Vol] 3.9 g/dL 3.2-5.0 [facility] Work Phone: Serum or plasma calcium prem urement (mass/volume)on 10-23-2021 Calcium [Mass/Vol] 9.1 mg/dL 8.5-10.1 [facility] Work Phone: Serum or plasma creatinine m easurement (mass/volume)on 10-23-2021 Creatinine [Mass/Vol] 1.53 mg/dL 0.70-1.30 [facility] Work Phone: Comment on above: The validity of the calculated GFR & GFRAA in patients over 70 years has not been determined. Clinical correlation is essential. Serum or plasma urea nitroge n measurement (mass/volume)on 10-23-2021 Urea nitrogen [Mass/Vol] 22 mg/dL -18 [facility] Work Phone: CNOVon 07-13-2017 CNOV Office Visit ([facility]) [facility][id number][facility] 1945 [facility]13/17 1:00 PM RENETTA DORMANGENESIS) [facility] During your visit today, we recorded the following information about you: Temperature Pulse Respiration Blood pressure 97.4 degrees 81/minute 16/minute 128/80 Weight 89.1 kgRenetta Dorman APRN.CNP 07/13/2017 1:45 PM SignedSubjectiveThe history is provided by the patient. No aerial photograph interpreter was used.HPI Carlee Lee is a 71 [...] by RENETTA DORMAN CNP on 07/13/17 Normal [facility] PROGRESSon 07-13-2017 PROGRESS HNO ID: [id number]: Renetta Shahervice: (none)Author Type: Nurse PractitionerType: Progress NotesFiled: 07/13/2017 1:45 PMNote Text:SubjectiveThe history is provided by the patient. No aerial photograph interpreter was used.HPI Carlee Lee is a 71 [...] in detail warranting prompt ER evaluation.Renetta Dorman, STONE RUBBER.GLUE SIZE MACHINE OPERATOR Normal [facility] No Panel Information Influenza Types A,B Direct FA ([facility]) [facility] Work Phone: Vital Signs Date Time Vital Sign Value Performing Clinician Facility 08-13-2024 08:26-0400 Body height 185.[address] Fox Fischer MD Work Phone: [facility] 08-13-2024 08:26-0400 Body mass index (BMI) [Ratio] 26.7 kg/m2 Dr. Fox Fischer MD Work Phone: [facility] 08-13-2024 08:26-0400 Body weight 92.[address] Fox Fischer MD Work Phone: [facility] 08-13-2024 08:26-0400 Diastolic blood pressure 64 mm[Hg] Dr. Fox Fischer MD Work Phone: [facility] 08-13-2024 08:26-0400 Heart rate 57 /min Dr. Fox Fischer MD Work Phone: [facility] 08-13-2024 08:26-0400 Respiratory rate 16 /min Dr. Fox Fischer MD Work Phone: [facility] 08-13-2024 08:26-0400 Systolic blood pressure 122 mm[Hg] Dr. Fox Fischer MD Work Phone: [facility] 05-08-2024 07:55-0500 Body height 185.[address] Fox Fischer MD Work Phone: [facility] 05-08-2024 07:55-0500 Body mass index (BMI) [Ratio] 27 kg/m2 Dr. Fox Fischer MD Work Phone: [facility] 05-08-2024 07:55-0500 Body temperature 97.2 [degF] Dr. Fox Fischer MD Work Phone: [facility] 05-08-2024 07:55-0500 Body weight 92.[address] Fox Fischer MD Work Phone: [facility] 05-08-2024 07:55-0500 Diastolic blood pressure 82 mm[Hg] Dr. Fox Fischer MD Work Phone: [facility] 05-08-2024 07:55-0500 Heart rate 66 /min Dr. Fox Fischer MD Work Phone: [facility] 05-08-2024 07:55-0500 Respiratory rate 18 /min Dr. Fox Fischer MD Work Phone: [facility] 05-08-2024 07:55-0500 SaO2% (BldA) [Mass fraction] 97 % Dr. Fox Fischer MD Work Phone: [facility] 05-08-2024 07:55-0500 Systolic blood pressure 161 mm[Hg] Dr. Fox Fischer MD Work Phone: [facility] 07-16-2023 13:33-0400 Diastolic Blood Pressure Non-Invasive 77 mm[Hg] DR MISTI SHIRLEY MD [facility] 07-16-2023 13:33-0400 Heart rate 61 /min DR MISTI SHIRLEY MD [facility] 07-16-2023 13:33-0400 Respiratory rate 20 /min DR MISTI SHIRLEY MD [facility] 07-16-2023 13:33-0400 Systolic Blood Pressure Non-Invasive 153 mm[Hg] DR MISTI SHIRLEY MD [facility] 07-16-2023 12:13-0400 Diastolic Blood Pressure Non-Invasive 88 mm[Hg] DR MISTI SHIRLEY MD [facility] 07-16-2023 12:13-0400 Heart rate 66 /min DR MISTI SHIRLEY MD [facility] 07-16-2023 12:13-0400 Respiratory rate 16 /min DR MISTI SHIRLEY MD [facility] 07-16-2023 12:13-0400 Systolic Blood Pressure Non-Invasive 119 mm[Hg] DR MISTI SHIRLEY MD [facility] 07-16-2023 10:33-0400 Diastolic Blood Pressure Non-Invasive 64 mm[Hg] DR MISTI SHIRLEY MD [facility] 07-16-2023 10:33-0400 Heart rate 65 /min DR MISTI SHIRLEY MD [facility] 07-16-2023 10:33-0400 Respiratory rate 18 /min DR MISTI SHIRLEY MD [facility] 07-16-2023 10:33-0400 Systolic Blood Pressure Non-Invasive 153 mm[Hg] DR MISTI SHIRLEY MD [facility] 07-16-2023 08:59-0400 Body temperature 96.98 [degF] DR MISTI SHIRLEY MD [facility] 07-16-2023 08:45-0400 Body temperature 96.8 [degF] DR MISTI SHIRLEY MD [facility] 07-16-2023 08:45-0400 Respiratory Rate - Anes 12 br/min DR MISTI SHIRLEY MD [facility] 07-16-2023 08:40-0400 Respiratory Rate - Anes 12 br/min DR MISTI SHIRLEY MD [facility] 07-16-2023 08:35-0400 Respiratory Rate - Anes 11 br/min DR MISTI SHIRLEY MD [facility] 07-16-2023 08:30-0400 Body temperature 96.8 [degF] DR MISTI SHIRLEY MD [facility] 07-16-2023 08:15-0400 Body temperature 96.8 [degF] DR MISTI SHIRLEY MD [facility] 07-16-2023 06:07-0400 Body weight 26.75 kg/m2 DR MISTI SHIRLEY MD [facility] 07-16-2023 05:43-0400 Body height 182.[address] MITSI SHIRLEY MD [facility] 07-16-2023 05:43-0400 Body temperature 97.52 [degF] DR MISTI SHIRLEY MD [facility] 07-16-2023 05:43-0400 Body weight 89.[address] MISTI SHIRLEY MD [facility] 07-16-2023 05:43-0400 Heart rate 59 /min DR MISTI SHIRLEY MD [facility] 07-04-2023 14:31-0400 Body height 185.[address] Fox Fischer Work Phone: [facility] 07-04-2023 14:31-0400 Body mass index (BMI) [Ratio] 26.4 kg/m2 Dr. Fox Fischer Work Phone: [facility] 07-04-2023 14:31-0400 Body weight 90.[address] Fox Fischer Work Phone: [facility] 07-04-2023 14:31-0400 Diastolic blood pressure 71 mm[Hg] Dr. Fox Fischer Work Phone: [facility] 07-04-2023 14:31-0400 Heart rate 63 /min Dr. Fox Fischer Work Phone: [facility] 07-04-2023 14:31-0400 Respiratory rate 18 /min Dr. Fox Fischer Work Phone: [facility] 07-04-2023 14:31-0400 SaO2% (BldA) [Mass fraction] 99 % Dr. Fox Fischer Work Phone: [facility] 07-04-2023 14:31-0400 Systolic blood pressure 135 mm[Hg] Dr. Fox Fischer Work Phone: [facility] 06-26-2023 14:15-0400 [address] Pressure Cuff Size DR MISTI SHIRLEY MD [facility] 06-26-2023 14:15-[address] MISTI SHIRLEY MD [facility] 06-26-2023 14:15-[address] MISTI Rosa [facility] 06-26-2023 14:15-0400 Body height 182.[address] MISTI SHIRLEY MD [facility] 06-26-2023 14:15-0400 Body weight 89.[address] MISTI SHIRLEY MD [facility] 06-26-2023 14:15-0400 Body weight 26.75 kg/m2 DR MISTI SHIRLEY MD [facility] 06-26-2023 14:15-0400 Diastolic Blood Pressure Non-Invasive 83 mm[Hg] DR MISTI SHIRLEY MD [facility] 06-26-2023 14:15-0400 Heart rate 60 /min DR MISTI SHIRLEY MD [facility] 06-26-2023 14:15-0400 Systolic Blood Pressure Non-Invasive 159 mm[Hg] DR MISTI SHIRLEY MD [facility] 04-23-2022 08:56-0500 Body height 185.[address] Fox Fischer Work Phone: [facility] 04-23-2022 08:56-0500 Body mass index (BMI) [Ratio] 27.4 kg/m2 Dr. Fox Fischer Work Phone: [facility] 04-23-2022 08:56-0500 Body weight 94.[address] Fox Fischer Work Phone: [facility] 04-23-2022 08:56-0500 Diastolic blood pressure 69 mm[Hg] Dr. Fox Fischer Work Phone: [facility] 04-23-2022 08:56-0500 Heart rate 70 /min Dr. Fox Fischer Work Phone: [facility] 04-23-2022 08:56-0500 Respiratory rate 18 /min Dr. Fox Fischer Work Phone: [facility] 04-23-2022 08:56-0500 SaO2% (BldA) [Mass fraction] 100 % Dr. Fox Fischer Work Phone: [facility] 04-23-2022 08:56-0500 Systolic blood pressure 163 mm[Hg] Dr. Fox Fischer Work Phone: [facility] 02-26-2022 08:18-0500 Body mass index (BMI) [Ratio] 27.6 kg/m2 Dr. Fox Fischer Work Phone: [facility] 02-26-2022 08:18-0500 Body temperature 97.8 [degF] Dr. Fox Fischer Work Phone: [facility] 02-26-2022 08:18-0500 Body weight 94.[address] Fox Fischer Work Phone: [facility] 02-26-2022 08:18-0500 Diastolic blood pressure 83 mm[Hg] Dr. Fox Fischer Work Phone: [facility] 02-26-2022 08:18-0500 Heart rate 59 /min Dr. Fox Fischer Work Phone: [facility] 02-26-2022 08:18-0500 Respiratory rate 18 /min Dr. Fox Fischer Work Phone: [facility] 02-26-2022 08:18-0500 SaO2% (BldA) [Mass fraction] 99 % Dr. Fox Fischer Work Phone: [facility] 02-26-2022 08:18-0500 Systolic blood pressure 162 mm[Hg] Dr. Fox Fischer Work Phone: [facility] 10-16-2021 09:07-0400 Body height 185.[address] Fox Fischer Work Phone: [facility] Work Phone: 10-16-2021 09:07-0400 Body mass index (BMI) [Ratio] 26.6 kg/m2 Dr. Fox Fischer Work Phone: [facility] Work Phone: 10-16-2021 09:07-0400 Body weight 91.[address] Fox Fischer Work Phone: [facility] Work Phone: 10-16-2021 09:07-0400 Diastolic blood pressure 74 mm[Hg] Dr. Fox Fischer Work Phone: [facility] Work Phone: 10-16-2021 09:07-0400 Heart rate 56 /min Dr. Fox Fischer Work Phone: [facility] Work Phone: 10-16-2021 09:07-0400 Respiratory rate 16 /min Dr. Fox Fischer Work Phone: [facility] Work Phone: 10-16-2021 09:07-0400 Systolic blood pressure 140 mm[Hg] Dr. Fox Fischer Work Phone: [facility] Work Phone: Encounters Encounter Date Encounter Type Care Provider Facility Start: 08-13-2024 End: 08-13-2024 Patient encounter procedure No Pete ONLINE AFFILIATE MARKETING MANAGER-C -[facility] Work Phone: Start: 08-13-2024 End: 08-13-[address] Fox Fischer MD Work Phone: [facility] Work Phone: Start: 07-02-2024 End: 07-02-[address] Fox Fischer MD Work Phone: [facility] Work Phone: Start: 07-02-2024 End: 07-02-[address] Fox Fischer MD -Laboratory Work Phone: Start: 07-02-2024 End: 07-02-2024 ambulatory Fox Roddy Juan Facility:[facility] Start: 05-08-2024 End: 05-08-2024 Patient encounter procedure Pam Patel ONLINE AFFILIATE MARKETING MANAGER-C -[facility] Work Phone: Start: 05-08-2024 End: 05-08-2024 ambulatory Pam Patel NP Facility:[facility] [place] Start: 02-03-2024 End: 02-03-2024 ambulatory Brandon Fulton Facility:[facility] Start: 01-02-2024 End: 01-02-2024 ambulatory Fox Roddy Fischer Facility:[facility] Start: 10-29-2023 End: 10-29-2023 ambulatory Amita Brenner Facility:[facility] Start: 08-20-2023 ambulatory Ronel Morales Facility: [facility] Start: 08-20-2023 End: 08-20-2023 ambulatory Ciaran Vazquez Facility:[facility] Start: 07-16-2023 End: 07-16-2023 ambulatory MISTI SHIRLEY Facility:[facility] Start: 07-16-2023 End: 07-16-[address] MISTI SHIRLEY MD [facility] Start: 07-12-2023 End: 07-12-[address] Fox Fischer Work Phone: [facility] Work Phone: Start: 07-12-2023 End: 07-12-[address] Fox Fischer Work Phone: [facility], [facility] Work Phone: Start: 07-04-2023 End: 07-04-[address] Fox Fischer Work Phone: [facility] Work Phone: Start: 07-02-2023 End: 07-02-[address] Fox Fischer Work Phone: [facility] Work Phone: Start: 07-02-2023 End: 07-02-[address] Fox Fischer Work Phone: [facility]-Laboratory, [facility] Office [address] [place] [address] Start: 06-26-2023 End: 06-27-2023 ambulatory MISTI SHIRLEY Facility:[facility] Start: 06-26-2023 End: 06-27-2023 ambulatory MISTI SHIRLEY Facility:[facility] Start: 06-26-2023 End: 06-26-[address] MISTI SHIRLEY MD [facility] Start: 06-26-2023 End: 06-26-[address] MISTI SHIRLEY MD [facility] Start: 12-24-2022 End: 12-24-2022 ambulatory [facility] Work Phone: Start: 12-24-2022 End: 12-24-2022 Patient encounter procedure [facility]-Laboratory Work Phone: Start: 12-05-2022 End: 12-05-2022 ambulatory [facility] Work Phone: Start: 12-05-2022 End: 12-05-2022 Patient encounter procedure [facility]-Ultrasound, [facility] Work Phone: Start: 11-29-2022 End: 11-29-2022 ambulatory [facility] Work Phone: Start: 11-29-2022 End: 11-29-2022 Patient encounter procedure [facility]-Laboratory, Phy Office 3rd Flr Start: 09-24-2022 End: 09-24-2022 ambulatory [facility] Work Phone: Start: 09-24-2022 End: 09-24-2022 Patient encounter procedure [facility]-Radiology, [facility] Work Phone: Start: 09-21-2022 End: 09-21-2022 ambulatory [facility] Work Phone: Start: 09-21-2022 End: 09-21-2022 Patient encounter procedure [facility]-Pre-Admission Testing Work Phone: Start: 09-14-2022 End: 09-14-2022 Patient encounter procedure [facility]-Cat Scan, [facility] Work Phone: Start: 09-03-2022 End: 09-03-2022 Patient encounter procedure [facility]-Laboratory Work Phone: Start: 06-28-2022 End: 06-28-[address] Fox Fischer Work Phone: [facility]-Laboratory Start: 06-25-2022 End: 06-25-[address] Fox Fischer Work Phone: [facility] Work Phone: Start: 06-25-2022 End: 06-25-[address] Fox Fischer Work Phone: [facility]-Laboratory, Phy Office 3rd Flr Start: 06-07-2022 End: 06-07-[address] Fox Fischer Work Phone: [facility] Work Phone: Start: 06-07-2022 End: 06-07-[address] Fox Fischer Work Phone: [facility]-Laboratory Start: 04-23-2022 End: 04-23-[address] Fox Fischer Work Phone: [facility] Start: 02-26-2022 End: 02-26-[address] Fox Fischer Work Phone: [facility] [facility] Start: 01-11-2022 End: 01-11-[address] Fox Fischer Work Phone: [facility] Work Phone: Start: 01-11-2022 End: 01-11-[address] Fox Fischer [facility] Start: 12-21-2021 End: 12-21-[address] Fox Fischer [facility] Phone[facility] Start: 12-07-2021 End: 12-07-[address] Fox Fischer [facility] Start: 11-29-2021 End: 11-29-[address] Fox Fischer Work Phone: [facility] Work Phone: Start: 11-29-2021 End: 11-29-[address] Fox Fischer [facility] Start: 11-23-2021 End: 11-23-[address] Fox Fischer Work Phone: [facility] Start: 11-16-[address] Fox valerio Work Phone: [facility] Start: 11-15-2021 End: 11-15-[address] Fox Fischer Work Phone: [facility] Work Phone: Start: 11-15-2021 End: 11-15-[address] Fox Fischer Work Phone: [facility]-Laboratory Start: 10-23-2021 End: 10-23-[address] Fox Fischer Work Phone: [facility] Start: 10-16-2021 End: 10-16-[address] Fox Fischer Work Phone: [facility] Start: 07-13-2017 End: 07-16-2017 Ambulatory [facility] Procedures Date Procedure Procedure Detail Performing Clinician [...] limb Ext No n Vasc Limited/Soft Tiss [facility] Start: 12-05-2022 US Extremity limited [facility] Patient referral [facility] Work Phone: Payers Date Payer Category Payer Self-pay [id number] 2012 Medicare [id number] 1945 Unknown [id number] 2.16.8 [id number] 1945 Unknown [id number] 2.16.8 [id number] 1945 Unknown [id number] 2.16.8 [id number] Unknown [facility] PACKAGE PLAN [id number] Unknown [id number] 2.16.8 [id number] Unknown [id number] 2.16.8 [id number] Unknown [id number] 2.16.8 [id number] Unknown [id number] 2.16.8 [id number] Unknown [id number] 2.16.8 [id number] Unknown [id number] 2.16.8 [id number] Unknown [id number] 2.16.8 [id number] Unknown [id number] 2.16.8 [id number] Social History Date Type Detail Facility Start: 10-16-2021 End: 02-26-2023 Tobacco smoking status IAIS Unknown if ever smoked [facility] Start: 1945 Sex Assigned At Male [facility] Start: 06-26-2023 Tobacco smoking status Smoker (findi ng) [facility] Comment on above: quit 2008 Sex Assigned At Sex [facility] Start: 08-20-2023 Tobacco smoking stat us IAIS Ex-smoker (finding) [facility] Start: 07-08-2024 Sex Male (finding) [facility] Functional Status Date Assessment Result Facility 07-16-2023 Functional Status Independent [facility] 07-16-2023 Functional Status bilateral knee high chana lied/on [facility] 07-16-2023 Functional Status Maintained [facility] 07-16-2023 Functional Status [facility] 06-26-2023 Functional Status Sensory Defici ts Hearing deficit, left ear, Hearing deficit, right ear [facility] Mental Status Date Assessment Result Facility 07-16-2023 Mental Status Orientation Oriented x 4 [facility] Clinical Notes 09-10-2022 to 05-08-2024 Note Date & Type Note Facility 05-08-2024 Evaluation note Diagnosis Onset Date Resolution MARIBELL (obstructive sleep apnea) chronic May 08 11:05am 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 April 11:05am [facility] Work Phone: 1(425) 239-288702-21-2025 Evaluation note* Diagnosis Onset Date Resolution Status Admit Date MARIBELL (obstructive sleep apnea) chroni c May 08, 2024 11:05am Stage 2 moderate COPD by GOL D classification chronic May 08 11:05am Dyspnea on exertion acute July 172024 8:24am Nonrheumatic aortic (valve) stenosis acute August 13, 2024 8 :24am 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 Eat bland, aera-oi-cbjump foods in small amounts as you are able. These foods include bananas, applesauce, rice, lean meats, toast, and crackers. Avoid fluids that contain a lot of sugar or caffeine, such as energy drinks, sports drinks, and soda. Avoid alcohol. Avoid spicy or fatty foods. General instructions Take ximx-zqo-txzrlko and prescription medicines only as told by your health care provider. Drink enough fluid to keep your urine pale yellow. Wash your hands often using soap and water. If soap and water are not available, use hand practical nursing instructor. Make sure that all people in your [...] eating and drinking to prevent dehydration. Take bmuo-gvx-cjhtqmh and prescription medicines only as told by [...] 03/04/2006 Document Revised: 06/26/2019 Document Reviewed: 08/12/2018 Outline App Patient Education 2020 [email or web address]. 07/16/2023 10:24:07 Monitored Anesthesia Care, Care After [...] before eating solid foods. General instructions Take qaby-dzu-itulugv and prescription medicines only as told by [...] 06/24/2016 Document Revised: 06/02/2018 Document Reviewed: 06/24/2016 Outline App Patient Education 2020 [email or web address]. 07/16/2023 10:23:59 Spinal Anesthesia and Epidural Anesthesia, [...] what activities are safe for you. Take btje-kdu-mlakghh and prescription medicines only as told by [...] 05/24/2004 Document Revised: 08/24/2019 Document Reviewed: 06/25/2016 Outline App Patient Education 2020 [email or web address]. 07/16/2023 10:23:50 Partial Knee Replacement, Care After [...] Follow these instructions at home: Medicines Take tfay-gmb-ahofdup and prescription medicines only as told by [...] to keep your urine pale yellow. ?Take snaz-zde-rrvrjwp or prescription medicines. ?Eat foods that are [...] and water are not available, use hand practical nursing instructor. ?Change your dressing as told by your [...] 03/25/2019 Document Revised: 03/25/2019 Document Reviewed: 03/25/2019 Outline App Patient Education 2020 [email or web address]. Follow Up Care 05/29/2023 08:19:04 With:CARLOS ENRIQUE COFFMAN Address: [facility] [address] [place] [id number] Business (1) When:07/29/2023 15:00:00 [facility] 04-30-2024 Summary of episode note Discharge Instructions Thank you for allowing [facility] to assist you with your healthcare needs. The following is importantdischarge information regarding your hospital visit. Your Care Team DERRICK FISCHER MD What to do next Follow Up Appointments Follow Up with CARLOS ENRIQUE COFFMAN When 07/29/2023 03:00 PM EDT Where: [facility] [address] [place] [address] [place] [id number] Business (1) The Following Activity and Diet [...] water added (diluted fruit juice). Eat bland, usfq-gx-zglrsx foods in small amounts as you are able. These foods include bananas, applesauce, rice, lean meats, toast, and crackers. Avoid fluids that contain a lot of sugar or caffeine, such as energy drinks, sports drinks, and soda. Avoid alcohol. Avoid spicy or fatty foods. General instructions Take xhha-lvd-tdfuryn and prescription medicines only as told by your health care provider. Drink enough fluid to keep your urine pale yellow. Wash your hands often using soap and water. If soap and water are not available, use hand practical nursing instructor. Make sure that all people in your [...] eating and drinking to prevent dehydration. Take mhzd-mqt-fubcwaz and prescription medicines only as told by [...] 03/04/2006 Document Revised: 06/26/2019 Document Reviewed: 08/12/2018 Elsewikifolio Patient Education 2020 [employer] Monitored Anesthesia Care, Care After These [...] before eating solid foods. General instructions Take vtve-oyz-yihzebu and prescription medicines only as told by [...] Document Reviewed: 06/24/2016 Elsevier Patient Education 2020 [employer]. Spinal Anesthesia and Epidural Anesthesia, Care [...] what activities are safe for you. Take odvw-ief-neupsom and prescription medicines only as told by [...] 05/24/2004 Document Revised: 08/24/2019 Document Reviewed: 06/25/2016 Outline App Patient Education 2020 [employer] Partial Knee Replacement, Care After This [...] Follow these instructions at home: Medicines Take jcip-xjh-tmqqyhv and prescription medicines only as told by [...] keep your urine pale yellow. ? Take ismk-gbd-wulsest or prescription medicines. ? Eat foods that [...] and water are not available, use hand practical nursing instructor. ? Change your dressing as told by [...] Document Reviewed: 03/25/2019 Elsevier Patient Education 2020 [employer] Additional Information VACCINATE! IT SAVES LIVES! Members of the community who have not yet received the COVID-19 vaccine and would like to receive it can visit one of [facility] vaccine clinics. There are many vaccine clinic locations within the [facility]. For locations and available times, please visit https://Piece of Cakeot.coronavirus.[place].gov/. It is important to note that some COVID mobile vaccine clinics are held outdoors and may be canceled in rainy or stormy conditions. To learn more about pediatric vaccinations (ages 5-11), we invite you to visit the [facility] webpage. https://www.[email or web address].org/pages/[email or web address]-Baujc-Hkguowcduep-Knlkkguove-Wfhyp-Cbn stions.htmlTo learn more about the COVID-19 vaccine, we invite you to visit the CDC website for a list of frequently asked questions.https://www.cdc.gov/coronavirus/2019-ncov/vaccines/faq.html [employer] Patient Portal Access Instructions: Stay connected with your healthcare team and access your personal medical information anytime with the [employer] Patient Portal. Please follow the directions below to create your [employer] account: 1.Access the email account you provided upon registration to the hospital/physician office.2.Look for an invitation email from [facility].3.Open the email and access the invitation link: AcceptInvitation to [facility].4.Fill in the required crowley to create your account. To access your account, visit [employer]/Max-Vizt. Click the blue button labeled Access Patient [...] who you will allowto register on the [employer] Patient Portal for access to your information. You can also access the [facility] Patient Portal on the [employer] chana. Simply click on Patient Portal and then log into your account. If you would like to receive a full copy of your medical records, please contact the [facility] Medical Records Department by calling [phone], Saturday through Saturday between 8 a.m. and [...] Call your local pharmacy or go to [email or web address] to find one close to you.3.Make use of household items: Use cat litter or old coffee grounds to dispose medications if other options arenot available. Mix your drugs with these household products, seal them in an airtight container andthrow it into the garbage. Call [facility]: [phone] to be sure your drugs can be [...] aware that I should contact my doctor. Patient/Blocker And Sewer Signature: Date/Time: Relationship to Patient: Witness Name/Signature: Date/Time: [facility]04-30-2024 Note ORIGINAL EXAMINATION: TWO XRAY VIEWS [...] Sign Date: 07/16/2023 9:24:51 AM Ordering Provider: [facility]04-30-2024 Anesthesiology Consult note Patient: CARLEE LEE Age: 77 years Sex: Male : 1945 Associated Diagnoses: None Author: LIVE RIVAS APRN-PARTS CONSULTANT Assessment Postanesthesia assessment Vitals: Vital signs from [...] by LIVE RIVAS on 07/16/2023 08:51 AM [facility]04-30-2024 Anesthesiology Consult note Patient: CARLEE LEE [...] Histories Past Medical History: Resolved HLD (hyperlipidemia) ([id number]): Resolved. Benign hypertension (44676117): Resolved. GERD - Gastro-esophageal reflux disease (7837207386): Resolved. Colon polyps ([id number]): Resolved. Family History: Heart disease Father High blood pressure Father Coronary artery disease 14-Sep-2015 02:33:12<$> Father Glaucoma Sister Procedure history: Colonoscopy ([id number]) on 02/24/2016 at 70 Years. Comments: 02/24/2016 9:29 Radha Flores RN SNARE POLYPECTOMY Arthroscopy of knee with medial meniscus repair (30962980) in 2008 at 63 Years. Herniotomy (710745573) in 2003 at 58 Years. Septoplasty or submucous resection, with or without cartilage scoring, contouring or replacement with graft (42179). Inguinal herniorrhaphy (88100538). Vitrectomy (855513998). CEIOL - Cataract extraction and insertion of intraocular lens (2849966817). Social History Social & Psychosocial Habits Alcohol [...] Signs(last 24 hrs) Last Charted Heart Rate Ncvghbaei48 bpm (JUL 15 07:35) VOU495 mmHg (JUL 15 07:35) DBP75 mmHg (JUL 15 07:35) BMI26.75 (JUL 15 06:07) Measurements from flowsheet : Measurements 07/16/2023 6:07 EDT Body Mass Index 26.75 kg/m2 07/16/2023 5:43 EDT Height 182.9 cm Admission Weight 89.5 kg [place] Body Weight 77.62 kg Admission Body Mass [...] Surgeon SN - CAt - Role Performed Teacher Theater Arts 1 SN - CAt - Role Performed Scrub 1 SN - CAt - Role Performed Svp Digital Sales Food & Cooking 1 SN - CAt - Role Performed Physician Agricultural Mechanic SN - CAt - Role Performed Bistro Server SN - CAt - Role Performed PARTS CONSULTANT 07/16/2023 7:35 EDT Heart Rate Monitored 60 [...] Provider #1 Bedside Time Out LIVE RIVAS APRN-PARTS CONSULTANT Provider #2 Bedside Time Out Marianne Todd RN NPO Status Maintained Allergy Band on and Verified Yes Patient ID Band on and Verified Yes Anesthesia Consent Signed Yes Blood Consent Signed Yes 07/16/2023 6:39 EDT citric acid-sodium citrate Not Given: Other (Not Done) 07/16/2023 6:27 EDT IV Present Present Allergies Yes Anesthesia Extension Set Applied Yes Companion Caregiver On Yes Consent Form Signed Yes Patient [...] PHI Designated Person #1 We May Share [facility] Designated Person #1 Relationship Spouse Privacy Restrictions Requested None Body Mass Index 26.75 kg/m2 Status N/A Sensory Deficits Hearing deficit, left ear, Hearing deficit, right ear Diagnosed With Sleep Apnea Yes Advanced Directives Yes Advance Directive Type [place] Durable Power of Daycare Provider [place] Declaration (Living Will) Advance Directive Location [...] Education NPO after midnight, No jewelry, Responsible Green Party, Aware of surgery location, Pre-op education done, 1 bottle CHG wash with instructions given, Instructed to take ordered medications, Total Joint Replacement/Colorectal Book Given, SSI prevention handout given, Anesthesia blo ck education provided SN - Preprocedure Comments Spoke with patient, Verbalizes/Nonverbally indicates understanding, Other: LEVOTHYROXINE, METOPROLOL, BRING INHALER AND CPAP Anesthesia Evaluation Date/Time 06/26/2023 14:45 Anesthesia Evaluation Performed By AYDIN CELESTIN STONE RUBBER-PARTS CONSULTANT Anesthesia Evaluation Result Approved Individuals Taught Patient, Spouse Learning Readiness Willing to learn Barriers to Learning None evident Teaching Method Explanation Preferred Spoken Language Macedonian Preferred Written Language Macedonian Teaching Evaluation Needs reinforcement Total Joint Book [...] Height 182.9 cm Admission Weight 89.5 kg [place] Body Weight 77.62 kg Admission Body Mass [...] no difficulties Skin Temperature Warm Skin Description [place], Dry Skin Integrity Intact Mucous Membrane Color [place] Skin Moisture General Dry Characteristics of Speech [...] locked, Non-Slip footwear . Assessment and Plan [place] Society of Anesthesiologists (ASA) physical status classification: Class III. Anesthetic Preoperative Plan Anesthetic technique: Spinal. Postoperative pain management: adductor. Informed consent: signed by patient. Digitally Signed by LIVE RIVAS on 07/16/2023 07:43 AM [facility]04-10-2024 Note ORIGINAL EXAMINATION: CT OF THE [...] Sign Date: 06/26/2023 3:35:03 PM Ordering Provider: [facility]06-26-2023 History and physical note Author Carlos Enrique [facility] September 10, 2022 12:22pm Note Date/Time September 10, 2022 12:2 2pm [facility] Medical Records Department [address] [place] [id number] History & Physical Exam 09/10/22 1222 MR#: [id number] Acct: [id number] Name: ESTEFANIAJaradCARLEE JULIAN Rep #:[id number] : 1945 76 From: Carlos Enrique VALDEZ PA-C PCP: Dr. Fox Fischer MD Status:PRE [facility] Location: [facility] History and Physical History and Physical? Patient [...] the medial joint line.? Patient has tried qbro-oae-mdzzoha medications including Tylenol without relief.? Patient feels [...] are reaching out for [facility] Patient denies past history of DVT or pulmonary embolism.? No recent chest pain or shortness of breath.? He also reports that he sees a specialist for his kidney disease.? He is also seen aws solution architect Dr. Rivers in the past.? 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 Medial stress examination was also previously performed which showed correction of the alignment with christian of the medial joint space and maintain [...] 09/10/22 1222 <Electronically signed by Carlos Enrique AVLDEZ PA-C> Cosigner Signature (if applicable): CC: JOVANNY Coffman; Dr. 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 Nonrheumatic aortic (valve) stenosis acute [id number] chronic 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 CKD (chronic kidney disease) chronic Essential hypertension chron ic Hyperlipidemia chronic MARIBELL (obstructive sleep apnea) [facility] Work Phone: Evaluation note* Diagnosis Onset Date Resolution Status Nonrheumatic aortic (valve) stenosis acute [id number] chronic 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 CKD (chronic kidney disease) chronic Essential hypertension chron ic Hyperlipidemia chronic MARIBELL (obstructive sleep apnea) [facility] Work Phone: Evaluation noteNo assessment information available [facility] Work Phone: Hospital course Narrative No data available for this section [facility] Hospital Discharge instructions No data available for this section [facility] Progress note No data available for this section [facility] Reason for referral (narrative)No reason for referral information available[facility] Work Phone: Summary Purpose Family History No Family History Records Found Relationship Condition Age at Onset Recorded Date/T adelso father Coronary artery disease Unknown Myocardial infarction 59 Pulmonary embolism Unknown Deep vein thrombosis (DVT) Unknown Advance Directives No Advanced Directives Records Found Advance Directive Response Recorded Date/ Time Living Will Yes August 19, 2018 1 :23pm Power of Daycare Provider Yes August 19, 2018 1:23pm Advance Directive Response Recorded Date/ Time Living Will Yes September 12, 2022 11:28am Power of Daycare Provider Yes September 12 11:28am Advance Directive Response Recorded Date/ Time Name of Medical Power of Daycare Provider ARUN LEE September 12, 2022 11:28am Living Will Yes September 12, 2022 11:28am Power of Daycare Provider Yes September 12 11:28am Chief Complaint and Reason for Visit Chief Complaint 6 m fu Reason for Visit Nonrheumatic aortic (valve) stenosis 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 pectoris Essential hypertension Hyperlipidemia Chief Complaint 6 m fu Blood Flow Screening - Organizational Psychologist Reason for Visit Nonrheumatic aortic (valve) stenosis 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 pectoris Essential hypertension Hyperlipidemia Chief Complaint 6 m fu Blood Flow Screening - Organizational Psychologist ACUTE KIDNEY FAILURE SCREENING Reason for Visit Nonrheumatic aortic (valve) stenosis 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 pectoris Essential hypertension Hyperlipidemia Chief Complaint 6 m fu Blood Flow Screening - Organizational Psychologist ACUTE KIDNEY FAILURE SCREENING CLAUDICATION Reason for Visit Nonrheumatic aortic (valve) stenosis 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 pectoris Essential hypertension Hyperlipidemia Chief Complaint 1 Y FU 6 M FU Reason for Visit Mass of upper lobe o f left lung MARIBELL (obstructive sleep apnea) Stage 2 moderate COPD by GOLD classification Nonrheumatic aortic (valve) stenosis [id number] 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 pectoris CKD (chronic kidney disease) Essential hypertension Hyperlipidemia MARIBELL (obstructive sleep apnea) Chief Complaint 6 M FU Reason for Visit Nonrheumatic aortic (valve) stenosis [id number] 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 pectoris CKD (chronic [...] Reason for Visit Nonrheumatic aortic (valve) stenosis [id number] 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 pectoris CKD (chronic [...] 2024 8:24am 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 August 13, 2024 8:24am Essential hypertension August 13, 2024 8: 24am Hyperlipidemia August 13, 2024 8:24a m Additional Source Comments (unrecognized sect ion and content) No Status Records FoundNo Status Records FoundNo Status Records Found INFORMATION SOURCE (unrecogn ized section and content) DATE CREATED AUTHOR 09/05/2017 [facility] DATE CREATED AUTHOR AUTHOR'S ORGANIZ ATION 07/28/2023 [facility] ([place]) DATE CREATED AUTHOR AUTHOR'S ORGANIZ ATION 08/15/2024 [facility] Goals (unrecognized section and content) Goals [...] Active Member Role Status Dates Dr. Fox Fiscehr MD Primary Care Provider Active Dr. Ciaran [...] 2024 End: May 08, 2024 Pam Patel ONLINE AFFILIATE MARKETING MANAGER, ONLINE AFFILIATE MARKETING MANAGER-C Attending Provider Active Start: May 08, 2024 [...] Inactive Member Role Status Dates Dr. Fox Fischre MD Primary Care Provider Active Start: August 13, 2024 End: August 13, 2024 Dr. Fox Fischer MD Referring Provider Active Start: August 13, 2024 End: August 13, 2024 No Pete NP, ONLINE AFF[employer]IATE MARKETING MANAGER-C Attending Provider Active Start: August 13, 2024 [...] BE BASED ON THE PRIMARY CLINICAL RECORDS. [employer] provides no warranty or guarantee of the accuracy or completeness of information in this document.
[2024-12-31 11:24] LABS: AST(SGOT) 38 U/L (<=37); Alanine Aminotransfer ALT/SGPT 34 U/L (<=46); Albumin, Serum 4.9 g/dL (3.4-4.8); Alkaline Phosphatase 69 U/L (40-129); Anion Gap 12 (5-15); BUN 17 mg/dL (4-19); BUN/Creat Ratio 13.1 RATIO (10-20); Calcium,Total 9.6 mg/dL (7.6-11.0); Carbon Dioxide 25.1 mmol/L (21.0-32.0); Chloride 102 mmol/L (98-108); Cholesterol 231 mg/dL (<=200); Globulin 3.1 g/dL (2.2-4.2); Glucose 147 mg/dL (70-99); Low Density Lipoprotein Calc. 156 mg/dL; Potassium 4.0 mmol/L (3.3-5.1); Triglycerides 93 mg/dL; Very Low Density Lipoprotein 19 mg/dL (5-40); Vitamin D,25 Hydroxy 34.2 ng/mL (30-100); cholesterol:hdl ratio screen 4.13
[2024-12-31 17:22] LABS: Xtra Tube Kwok EXTRA TUBE
== END | disposition home or self-care (01) ==
LOC: POLAB3 09:21
PROVIDERS: PCP Family Medicine Geriatric Medicine; Visit Provider Family Medicine Geriatric Medicine
DX: E78.5 Hyperlipidemia, unspecified (principal); E55.9 Vitamin D deficiency, unspecified; I10 Essential (primary) hypertension
CPT/HCPCS: 36415; 80053; 80061; 82306; 84443; 85025

== ENCOUNTER 2025-02-15 18:22 | Emergency (ER) | payer MEDICARE, SELFPAY ==
[2018-08-07 13:07] VITALS: BMI 25.7
[2025-02-15 18:23] VITALS: BP 188/80; PULSE 57; RESP 16; TEMP 36.4; O2SAT 100; BMI 27.3
--- NOTE | 2025-02-15 18:37 | EX.ED.GENINJ ---
HPI History of Present Illness Chief Complaint: Fall Detail of Chief Complaint: Fall landing on the right side of his jaw Informant: patient Onset/Context/Timing Onset: Hours Mechanism/Context: Fall and Slip Location of pain/injuries: - (Jaw) Quality of Pain: - (Pain when he chews his food) Location: Jaw left side anteriorly Current Severity: Gone Maximum Severity: Moderate Worsened by: Chewing his food and reason he presented to the emergency department Relieved by: Not eating Associated Symptoms Associated Symptoms: Negative for Parasthesias, Weakness, Loss of function, Inability to ambulate, Loss of consciousness or Amnesia Narrative Narrative: Patient is a 79-year-old male. He has history of coronary disease, COPD, PAD, chronic kidney disease, hypothyroidism, essential hypertension hyperlipidemia. Patient was out feeding the birds. There was a stone that is 1 foot slipped off of because the stone rolled. When he went to put his other foot down that stone rolled. He landed in face first. He states he hit the jaw on cement. His body landed on dirt. He denied trauma to his forehead or head. He is not on an anticoagulant. He denies neck pain. He denies paresthesia, anesthesia or motor weakness. He denies trouble breathing or shortness of breath. He denies chest pain. He denies upper or lower extremity pain. Prior similar symptoms: No Recent Illness/Hospitalization: No [facility] Medical History Wears glasses Wears partial dentures Cancer Alcohol use High cholesterol Umbilical hernia Former smoker CPAP (continuous positive airway pressure) dependence Sleep apnea Emphysema, unspecified COPD (chronic obstructive pulmonary disease) History of pain when walking History of echocardiogram Hypertension Cardiology follow-up encounter History of irregular heartbeat CKD (chronic kidney disease) BPH (benign prostatic hyperplasia) Hypokalemia Hypothyroidism CAD (coronary artery disease) Nonrheumatic aortic (valve) stenosis Deviated septum BILATERALLY KNEE CARTILAGE Hyperlipidemia Essential hypertension Atherosclerotic heart disease of [place] coronary artery without angina pectoris Atypical chest pain Subacute bronchitis Home Medications ?Medication ?Instructions ?Recorded ?Last Taken ?Type levothyroxine 25 mcg capsule 25 mcg PO DAILY 04/27/20 02/15/25 History tamsulosin 0.4 mg capsule 0.4 mg PO DAILY 01/25/22 02/14/25 History multivitamin 1 tab PO DAILY 02/26/22 02/15/25 History gemfibrozil 600 mg tablet 600 mg PO BID #180 tabs 04/10/23 02/15/25 Rx amlodipine 5 mg tablet 5 mg PO DAILY 07/04/23 02/15/25 History cholecalciferol (vitamin D3) 25 25 mcg PO DAILY 07/04/23 02/15/25 History mcg (1,000 unit) capsule ezetimibe 10 mg tablet (Zetia) 10 mg PO DAILY #90 tabs 10/10/23 02/14/25 Rx escitalopram oxalate 5 mg tablet 5 mg PO QDAY 02/03/24 02/15/25 History vitamins A,C,X-ympf-avdcuy 4,296 1 cap PO BID 02/03/24 02/15/25 History mcg-226 mg-90 mg capsule (PreserVision AREDS) aspirin 81 mg tablet,delayed 81 mg PO .qod #45 tabs 04/06/24 02/15/25 Rx release latanoprost 0.005 % eye drops 1 drp ophthalmic (eye) QHS 05/08/24 02/14/25 History metoprolol tartrate 25 mg tablet 12.5 mg (1/2 x 25 mg) PO BID heart 02/05/25 02/15/25 Rx #90 tabs hydrocodone-acetaminophen 5-325mg 1 tab PO Q6H PRN PRN Pain 3 days 02/15/25 Unknown Rx 5mg-325mg #10 TABLETS Allergy/AdvReac Type Severity Reaction Status Date / Time Food Allergies: Uncoded Allergy Rash Verified 02/15/25 18:26 Iodine and Iodide Containing Allergy Itching Verified 02/15/25 18:26 Produc shellfish derived Allergy Itching Verified 02/15/25 18:26 losartan AdvReac Severe Severe Verified 02/15/25 18:26 hypotension and near syncope petrolatum,white (From AdvReac Other Verified 02/15/25 18:26 Petroleum Jelly) Xzurqyc-WNS-KsN Reductase AdvReac Other Verified 02/15/25 18:26 Inhibitor (Osphpre-Swp-Ykc Reductase Inhibitor) Family History Father CAD (coronary artery disease) Myocardial infarction, Onset Age: 61 Pulmonary embolus DVT (deep venous thrombosis) Surgical History H/O knee surgery History of hernia surgery History of coronary artery stent placement History of cardiac catheterization H/O vitrectomy (09/2019) H/O bilateral inguinal hernia repair Stented coronary artery (08/07/18) Social History Smoking Status: Former smoker quit date: 03/18/08 pack-years: 40 Tobacco: How many years used: 40 how long ago did patient quit smokin, 1ppd second hand exposure: Yes ROS ROS ED Constitutional Constitutional ED: Denies chills, fever(s), subjective or sweats Eyes Eyes: Denies blurry vision or change in vision ENT ENT ED: Reports other Details: Jaw pain and lower teeth pain ; Denies ear pain, rhinorrhea or sore throat Cardiovascular Cardiovascular: Denies chest pain or palpitations Respiratory/Chest Respiratory/Chest: Denies cough, dyspnea or dyspnea on exertion Gastrointestinal Gastrointestinal: Denies abdominal pain, nausea or vomiting Musculoskeletal Musculoskeletal: Denies back pain or neck pain Integumentary Reports Abrasions Neurologic Neurologic: Denies headache(s), paresthesias or weakness Hematologic/Lymphatic Hematologic/Lymphatic: Denies easy bleeding or easy bruising EXAM Physical Exam Const Vital Signs: 02/15/25 18:23 02/15/25 18:40 Temperature 97.5 F L Temperature Source Temporal Pulse Rate 57 L Respiratory Rate 16 Respiratory Effort Non-Labored Respiratory Depth Normal Respiratory Pattern Normal Blood Pressure 188/80 H Blood Pressure Mean 116 Pulse Ox 100 Oxygen Delivery Method Room Air Positive well nourished and well developed General Appearance ED: well developed and NAD HEENT Reports TM's clear HEENT Narrative: Patient has abrasions to the jaw area. Patient has loose teeth #22, 23, 24, 25 and 26. Tooth #22 and 23 have a fracture through the enamel that is horizontal. Patient has periodontal disease. There is no tenderness over the TMJ joint bilaterally. There is no clicking with opening or closing his mouth. There is no septal deviation hematoma. Ears are normal. External auditory canals normal. TMs are normal. trauma and tenderness Nose: Negative for septum abnormal Tympanic Membrane ED: Yes TM's clear Eyes PERRL and EOMs intact bilaterally General Eye ED: Yes other Other Details: There is no subconjunctival hemorrhage. There is no evidence of perioral trauma or ecchymosis. Neck full ROM Neck Narrative: There is no midline posterior tenderness over the spinous process of the cervical spine. Full active range of motion. Resp normal respiratory effort and clear to auscultation bilaterally Cardio regular rhythm, S1 normal heart sound, S2 normal heart sound and no murmurs Rate: regular rate GI normal to inspection, nondistended, normoactive bowel sounds, non-tender, non-distended and no masses Extremity normal to inspection and full ROM Neuro oriented x3 and CN's II-XII intact bilaterally [place] Coma Scale: document GCS findings Spontaneous Obeys Commands Oriented 15 Sensorium / Orientation: alert Psych mental status grossly normal and thought process normal Skin Trauma: abrasion MDM MDM MDM Narrative Medical decision making narrative: Will obtain x-ray of the mandible to rule out fracture. If there is no evidence of fracture he will need to see his dentist and have x-rays to rule out root fracture and to repair or discuss options with regards to the 2 teeth that have fracture lines through the enamel. Since there is no head trauma, loss of conscious on no anticoagulant with no headache and normal neurologic exam imaging of the head was not obtained. Even though patient is greater than age 65 since he has no neck pain full active range of motion in my opinion he does not need imaging. Radiography Chest X-Ray - ED: Read by ED Physician (6 views of the mandible were obtained. There is no evidence of fracture.) Diagnostic Testing: Clinical Impression(s) from Imaging Studies Mandible X-Ray 02/15/25 18:50 IMPRESSION: NO MANDIBULAR BONE FRACTURE IDENTIFIED. Reading Location: [id number] Treatment and Re-Evaluation Narrative: Patient was informed he has no fracture noted. You need to see a dentist for dental x-rays to rule out root fracture and to treat tooth #21 and 22 that have fracture of the enamel near the gumline. Discharge Plan Triage Chief Complaint: Fall ED Provider: Topher Wiggins Dx/Rx/DC Orders Clinical Impression: Contusion of face, Abrasion of face, Fracture of incisor teeth, Fracture of multiple teeth Instructions: ED Dental Trauma, ED Facial Contusion Prescriptions: New hydrocodone-acetaminophen 5-325 mg tablet 1 tab PO Q6H PRN PRN (Reason: Pain) 3 Days Qty: 10 0RF No Action levothyroxine 25 mcg capsule 25 mcg PO DAILY multivitamin Tablet 1 tab PO DAILY tamsulosin 0.4 mg capsule 0.4 mg PO DAILY amlodipine 5 mg tablet 5 mg PO DAILY cholecalciferol (vitamin D3) 25 mcg (1,000 unit) capsule 25 mcg PO DAILY PreserVision AREDS 4,296 mcg-226 mg-90 mg capsule 1 cap PO BID escitalopram oxalate 5 mg tablet 5 mg PO QDAY latanoprost 0.005 % drops 1 drp ophthalmic (eye) QHS gemfibrozil 600 mg tablet 600 mg PO BID Qty: 180 3RF ezetimibe [Zetia] 10 mg tablet 10 mg PO DAILY Qty: 90 3RF aspirin 81 mg tablet,delayed release (DR/EC) 81 mg PO .qod Qty: 45 3RF metoprolol tartrate 25 mg tablet 12.5 mg PO BID Qty: 90 3RF Primary Care Provider: Fox Martinez Chi Referrals: Fox Martinez Chi, MD [Primary Care Provider, Geriatrics] Dentist,Your [STAFF PHYSICIAN, Dentistry] - As soon as possible Activity Restrictions/Additional Instructions: 1. Contact your dentist tomorrow morning. You will need dental films to evaluate for root fracture and to treat tooth #21 and 22 that have a fracture of the enamel. 2. Do not bite down on anything using your front teeth since the lower incisors are loose. Print Language: Kiswahili Disposition Disposition: Home, Self Care
--- NOTE | 2025-02-15 18:50 | RAD_ITS ---
PROCEDURE: MANDIBLE MIN 4 VIEWS 02/15/2025 REASON FOR EXAM: BLUNT TRAUMA, PAIN WITH CHEWING TECHNIQUE: Procedure Code: SHA Modality: DX Procedure: MANDIBLE MIN 4 VIEWS COMPARISON: None FINDINGS: No obvious fracture or dislocation. The paranasal sinuses are adequately aerated. No prevertebral soft tissue swelling. Dental amalgam and hardware. RAD/Mandible Min 4 Views IMPRESSION: NO MANDIBULAR BONE FRACTURE IDENTIFIED. Reading Location: [id number]
[2025-02-15 20:00] VITALS: BP 128/70; PULSE 88; RESP 16; O2SAT 99
--- OUTSIDE RECORDS SUMMARY | 2025-02-15 20:15 | XMS RPT_ITS | CCD ---
Author Organization [facility] CliniSyfl Care Team Providers Care Collections Assistant Name Role Phone Dr. Fox Fischer Chi Primary Care Provider Aaliyah, Dr. Fox Pereyra Referring Provider COURTNEY Apple Attending Provider Aaliyah, Dr. Fox Pereyra Primary Care Provider Aaliyah, Dr. Fox Pereyra Referring Provider Dr. Ahsan Rivers Attending Provider 1([facility])[phone] COURTNEY Apple Attending Provider Aaliyah, Dr. Fox Pereyra Primary Care Provider Aaliyah, Dr. Fox Pereyra Referring Provider AALIYAH ESTRELLA, DR MEZA Primary Care Physician Aaliyah, Dr. Fox Pereyra Primary Care Provider Aaliyah, Dr. Fox Pereyra Referring Provider COURTNEY Apple Attending Provider VIRGIL SHIRLEY Attending Unavailable AALIYAH ESTRELLA, DR MEZA Primary Care Unavailable VIRGIL SHIRLEY Attending Arie FISCHER MD, DR MEZA Primary Care Unavailable VIRGIL SHIRLEY Attending Arie FISCHER MD, DR MEZA Primary Care Arie Fischer MD, Dr. Fox Pereyra Primary Care Provider Aaliyah ESTRELLA, Dr. Fox Pereyra Referring Provider Pam Lynn Attending Provider Aaliyah ESTRELLA, Dr. Fox Pereyra Attending Provider No White Attending Provider 1([facility])[phone] Aaliyah, Fox Chi Referring Unavailable Aaliyah, Fox Chi Attending Unavailable Aaliyah, Fox Chi Primary Care Unavailable Aaliyah, Fox Chi Primary Care Unavailable Aaliyah, Fox Chi Attending Unavailable Aaliyah, Fox Chi Primary Care Unavailable Aaliyah, Fox Chi Referring Unavailable No Pete NP Attending Unavailable Aaliyah, Fox Chi Referring Unavailable Aaliyah, Fox Chi Primary Care Unavailable Brandon Fulton Attending Unavailable Aaliyah, Fox Chi Referring Unavailable Pam Patel NP Attending Unavailable Aaliyah, Fox Chi Primary Care Unavailable Allergies Allergy Classification Reported Allergen(s) Allergy Type Date of Onset Reaction(s) Facility (1 source) Contrast media; Translations: [CONTRAST DYE] Propensity to adverse reactions to drug (disorder) 2 [facility] Repository (1 source) onion extract; Translations: [ONION] Drug Allergy 2 [facility] Repository (15 sources) Losartan Drug Allergy 2 Severe hypotension and near syncope [facility] (18 sources) Petrolatum; Translations: [petrolatum topical] Drug Allergy 2 Other [facility] (16 sources) Iodine and Iodide Containing Produc; Translations: [Iodine and Iodide Containing Produc] Allergy to substance 2 [facility] (16 sources) Eiggpqx-Bdl-Bhq Reductase Inhibitor; Translations: [Bljlqix-Ooo-Ny a Reductase Inhibitor] Propensity to adverse reactions [...] Onions (3 sources) Adhesive Tape Drug allergy [facility] (3 sources) Contrast media Drug allergy [facility] (3 sources) HMG-CoA reductase inhibitor; Translations: [statins] Drug allergy [facility] (3 sources) Shellfish Food allergy [facility] (3 sources) Triple antibiotic ointment to site Drug allergy [facility] (1 source) Losartan Drug Allergy 5 [...] Ordered Start: 04-27-2020 take 1 capsule by [facility] once daily Levothyroxine 25 mcg capsule Active [...] Refill(s) Start Date: 06/26/23 Status: Ordered Vitamins A,C,O-Upja-Hycuio (Preservision Areds) 4,296 mcg-226 mg-90 mg capsule (2 sources) Start: 02-03-2024 Vitamins A,C,Y-Lllj-Sqpwow (Preservision Areds) 4,296 mcg-226 mg-90 mg capsule Active 1 NMA PO TWICE A DAY February 03, 2024 1:00am Completed/Discontinued Medications Medication Drug Class(es) Dates Sig (Normalized) Sig (Original) [id number] 200 actuat albuterol 0.09 mg/actuat metered dose [...] Discontinued 600 mg PO TWICE A DAY April 23, [...] [Chronic kidney disease, unspecified] 01-24-2022 Chronic Chronic obstructive pulmonary disease and bronchiectasis (18 sources) Moderate chronic obstructive pulmonary disease; Translations: [Chronic obstructive pulmonary disease, unspecified] 02-04-2019 Chronic Coronary atherosclerosis and other heart disease (20 sources) Coronary atherosclerosis; Translations: [Atherosclerotic heart disease of [place] coronary artery without angina pectoris] Onset: Chronic Comment on above: Successful PTCA/SANTI mid LAD with a 2.25 x 16 Promus Synergy, followed immediately upstream with a 2.25 x 28 Promus Synergy 08/07/18 per TELLYN @ [facility] Disorders of lipid metabolism (20 sources) Hyperlipidemia; Translations: [Hyperlipidemia, unspecified] Onset: 5 Chronic Essential hypertension (20 sources) Essential hypertension; Translations: [Essential (primary) hypertension] Onset: 5 Chronic Heart valve disorders (20 sources) Aortic stenosis, non-rheumatic ; Translations: [Nonrheumatic aortic (valve) stenosis] Chronic Comment on above: Mild per ECHO Hyperplasia of prostate (11 sources) Benign prostatic hyperplasia; Translations: [Benign prostatic hyperplasia without lower urinary tract symptoms] 01-24-2022 Chronic Neoplasms of unspecified nature or uncertain behavior (2 sources) Neoplasm of right kidney; 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] 08-07-2023 Episodic Nonspecific chest pain (15 sources) Atypical chest [...] artery of lower limb; Translations: [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, left [...] Unclassified (1 source) Unknown / UNK(Unknown) Onset: 8 Past or Other Problems Problem Classification Problem [...] 2.25 x 28 Promus Synergy 08/07/18 @ [facility] per [facility] Fluid and electrolyte disorders (12 sources) Hypokalemia; Translations: [Hypokalemia] Onset: 02-03-2024 01-24-2022 Episodic Other lower respiratory disease (1 source) Other forms of dyspnea; Translations: [Other forms of dyspnea] Onset: 02-03-2024 Episodic Unclassified (15 sources) BILATERALLY KNEE CARTILAGE 10-06-2021 Results Test Name Value Interpretation Reference Range Facility CBC W/Diff, Automatedon 10-1 Absolute Lymph 2.29 X10 3/uL Normal 0.83-4.51 [facility] Comment on above: Performed By: #### L 501.9520, L506.1001, L100.0100, L500.4100, L500.4050 #### [facility] [address] [place], [address] Absolute Neut 3.9 X10 3/uL Normal 2.0-7.7 [facility] Comment on above: Performed By: #### L 501.9520, L506.1001, L100.0100, L500.4100, L500.4050 #### [facility] [address] [place], [address] Basophils/100 WBC (Bld) 0.9 % Normal 0-1 [facility] Comment on above: Performed By: #### L 501.9520, L506.1001, L100.0100, L500.4100, L500.4050 #### [facility] [address] [place], [address] Eosinophils/100 WBC (Bld) 7.0 % High 0-5 [facility] Comment on above: Performed By: #### L 501.9520, L506.1001, L100.0100, L500.4100, L500.4050 #### [facility] [address] [place], [address] Erythrocyte distribution width (RBC) [Ratio] 12.5 % Normal 11.6-14.6 [facility] Comment on above: Performed By: #### L 501.9520, L506.1001, L100.0100, L500.4100, L500.4050 #### [facility] [address] [place], [address] Hematocrit (Bld) [Volume fraction] 45.0 % Normal 40-54 [facility] Comment on above: Performed By: #### L 501.9520, L506.1001, L100.0100, L500.4100, L500.4050 #### [facility] [address] [place], [address] Hemoglobin (Bld) [Mass/Vol] 15.1 g/dL Normal 13.0-16.5 [facility] Comment on above: Performed By: #### L 501.9520, L506.1001, L100.0100, L500.4100, L500.4050 #### [facility] [address] [place], [address] IG% 0.700 Normal 0.0-0.9 [facility] Comment on above: Result Comment: IG% - Immature Granulocytes (promyelocytes, myelocytes and metamyelocytes) > 1% indicates that a LEFT SHIFT is Present. Performed By: #### L 501.9520, L506.1001, L100.0100, L500.4100, L500.4050 #### [facility] [address] [place], [address] Lymphocytes/100 WBC (Bld) 30.9 % Normal 19-41 [facility] Comment on above: Performed By: #### L 501.9520, L506.1001, L100.0100, L500.4100, L500.4050 #### [facility] [address] [place], [address] MCH (RBC) [Entitic mass] 32.3 pg High 27.0-32.0 [facility] Comment on above: Performed By: #### L 501.9520, L506.1001, L100.0100, L500.4100, L500.4050 #### [facility] [address] [place], [address] MCHC (RBC) [Mass/Vol] 33.6 g/dL Normal 32-36 [facility] Comment on above: Performed By: #### L 501.9520, L506.1001, L100.0100, L500.4100, L500.4050 #### [facility] [address] [place], [address] MCV (RBC) [Entitic vol] 96.4 fL High 80-94 [facility] Comment on above: Performed By: #### L 501.9520, L506.1001, L100.0100, L500.4100, L500.4050 #### [facility] [address] [place], [address] Monocytes/100 WBC (Bld) 8.1 % Normal 0-10 [facility] Comment on above: Performed By: #### L 501.9520, L506.1001, L100.0100, L500.4100, L500.4050 #### [facility] [address] [place], [address] Neutrophils/100 WBC (Bld) 52.4 % Normal 47-70 [facility] Comment on above: Performed By: #### L 501.9520, L506.1001, L100.0100, L500.4100, L500.4050 #### [facility] [address] [place], [address] Nucleated RBC (Bld) [#/Vol] 0 10*3/uL Normal 0-5 [facility] Comment on above: Performed By: #### L 501.9520, L506.1001, L100.0100, L500.4100, L500.4050 #### [facility] [address] [place], [address] Platelet mean volume (Bld) [Entitic vol] 9.7 fL Normal 6.2-12.0 [facility] Comment on above: Performed By: #### L 501.9520, L506.1001, L100.0100, L500.4100, L500.4050 #### [facility] [address] [place], [address] Platelets (Bld) [#/Vol] 221 10*3/uL Normal 150-450 [facility] Comment on above: Performed By: #### L 501.9520, L506.1001, L100.0100, L500.4100, L500.4050 #### [facility] [address] [place], [address] RBC (Bld) [#/Vol] 4.67 10*6/uL Normal 4.6-6.2 [facility] Comment on above: Performed By: #### L 501.9520, L506.1001, L100.0100, L500.4100, L500.4050 #### [facility] [address] [place], [address] RDW SD 43.8 fl Normal 35.1-43.9 [facility] Comment on above: Performed By: #### L 501.9520, L506.1001, L100.0100, L500.4100, L500.4050 #### [facility] [address] [place], [address] WBC (Bld) [#/Vol] 7.4 10*3/uL Normal 4.4-11.0 [facility] Comment on above: Performed By: #### L 501.9520, L506.1001, L100.0100, L500.4100, L500.4050 #### [facility] [address] [place], [address] Comprehensive Metabolic [facility] 12-31-2024 Albumin [Mass/Vol] 4.9 g/dL High 3.4-4.8 [facility] Comment on above: Performed By: #### L 501.9520, L506.1001, L100.0100, L500.4100, L500.4050 #### [facility] [address] [place], [address] Albumin/Globulin [Mass ratio] 1.6 {ratio} Normal 0.9-2.4 [facility] Comment on above: Performed By: #### L 501.9520, L506.1001, L100.0100, L500.4100, L500.4050 #### [facility] [address] [place], [address] ALK PHOS 69 U/L Normal 40-129 [facility] Comment on above: Performed By: #### L 501.9520, L506.1001, L100.0100, L500.4100, L500.4050 #### [facility] [address] [place], [address] ALT [Catalytic activity/Vol] 34 U/L Normal <=46 [facility] Comment on above: Performed By: #### L 501.9520, L506.1001, L100.0100, L500.4100, L500.4050 #### [facility] [address] [place], [address] AST [Catalytic activity/Vol] 38 U/L Normal <=37 [facility] Comment on above: Performed By: #### L 501.9520, L506.1001, L100.0100, L500.4100, L500.4050 #### [facility] [address] [place], [address] Bilirubin [Mass/Vol] 0.75 mg/dL Normal 0.00-1.30 [facility] Comment on above: Performed By: #### L 501.9520, L506.1001, L100.0100, L500.4100, L500.4050 #### [facility] [address] [place], [address] BUN/CRE 13.1 RATIO Normal 10-20 [facility] Comment on above: Performed By: #### L 501.9520, L506.1001, L100.0100, L500.4100, L500.4050 #### [facility] [address] [place], [address] Calcium [Mass/Vol] 9.6 mg/dL Normal 7.6-11.0 [facility] Comment on above: Performed By: #### L 501.9520, L506.1001, L100.0100, L500.4100, L500.4050 #### [facility] [address] [place], [address] Chloride [Moles/Vol] 102 mmol/L Normal 98-108 [facility] Comment on above: Performed By: #### L 501.9520, L506.1001, L100.0100, L500.4100, L500.4050 #### [facility] [address] [place], [address] CO2 [Moles/Vol] 25.1 mmol/L Normal 21.0-32.0 [facility] Comment on above: Performed By: #### L 501.9520, L506.1001, L100.0100, L500.4100, L500.4050 #### [facility] [address] [place], [address] Creatinine [Mass/Vol] 1.31 mg/dL High 0.70-1.20 [facility] Comment on above: Performed By: #### L 501.9520, L506.1001, L100.0100, L500.4100, L500.4050 #### [facility] [address] [place], [address] GAP 12 Normal 5-15 [facility] Comment on above: Performed By: #### L 501.9520, L506.1001, L100.0100, L500.4100, L500.4050 #### [facility] [address] [place], [address] GFR/1.73 sq M.predicted among non-blacks MDRD (S/P/Bld) [Vol rate/Area] 55 mL/min/{1.73_m2} Low >60 [facility] Comment on above: Result Comment: mL/m in/1.73m2 CKD-EPI Creatinine Equation (2020) Performed By: #### L 501.9520, L506.1001, L100.0100, L500.4100, L500.4050 #### [facility] [address] [place], [address] Globulin (S) [Mass/Vol] 3.1 g/dL Normal 2.2-4.2 [facility] Comment on above: Performed By: #### L 501.9520, L506.1001, L100.0100, L500.4100, L500.4050 #### [facility] [address] [place], [address] Glucose [Mass/Vol] 147 mg/dL High 70-99 [facility] Comment on above: Performed By: #### L 501.9520, L506.1001, L100.0100, L500.4100, L500.4050 #### [facility] [address] [place], [address] Potassium [Moles/Vol] 4.0 mmol/L Normal 3.3-5.1 [facility] Comment on above: Performed By: #### L 501.9520, L506.1001, L100.0100, L500.4100, L500.4050 #### [facility] [address] [place], [address] Sodium [Moles/Vol] 139 mmol/L Normal 133-145 [facility] Comment on above: Performed By: #### L 501.9520, L506.1001, L100.0100, L500.4100, L500.4050 #### [facility] [address] [place], [address] T PROT 7.9 g/dL Normal 5.9-8.4 [facility] Comment on above: Performed By: #### L 501.9520, L506.1001, L100.0100, L500.4100, L500.4050 #### [facility] [address] [place], [address] Urea nitrogen [Mass/Vol] 17 mg/dL Normal 4-19 [facility] Comment on above: Performed By: #### L 501.9520, L506.1001, L100.0100, L500.4100, L500.4050 #### [facility] [address] [place], [address] Lipid Profileon 12-31-2024 CHOL:HDL 4.13 Normal [facility] Comment on above: Performed By: #### L 501.9520, L506.1001, L100.0100, L500.4100, L500.4050 ####[facility] [address] [place], [address] Cholesterol [Mass/Vol] 231 mg/dL High <=200 [facility] Comment on above: Result Comment: Chol esterol level, Desirable <200 mg/dL Borderline high cholesterol 200-239 mg/dL High cholesterol >=240 mg/dL Recommendations of the NCEP Adult Treatment Panel for the following risk-cutoff thresholds for the [place] population. Performed By: #### L 501.9520, L506.1001, L100.0100, L500.4100, L500.4050 ####[facility] [address] [place], [address] Cholesterol in HDL [Mass/Vol] 56 mg/dL Normal [facility] Comment on above: Result Comment: Yesenia onal Cholesterol Education Program (NCEP) guidelines: <40 mg/dL: Low HDL-cholesterol (major risk factor for CHD) >= 60 mg/dL: High HDL-cholesterol (negative risk factor for CHD) HDL-cholesterol is affected by a number of factors, e.g. smoking, exercise, hormones, sex and age. Performed By: #### L 501.9520, L506.1001, L100.0100, L500.4100, L500.4050 ####[facility] [address] [place], [address] Cholesterol in LDL [Mass/Vol] 156 mg/dL Normal [facility] Comment on above: Result Comment: Bord vgozoh=706-639 mg/dL Higher Yuvk=962 mg/dL or greater Friedwald Equation for LDL-C Performed By: #### L 501.9520, L506.1001, L100.0100, L500.4100, L500.4050 ####[facility] [address] [place], [address] Cholesterol in VLDL [Mass/Vol] 19 mg/dL Normal 5-40 [facility] Comment on above: Performed By: #### L 501.9520, L506.1001, L100.0100, L500.4100, L500.4050 ####[facility] [address] [place], [address] Triglyceride [Mass/Vol] 93 mg/dL Normal [facility] Comment on above: Result Comment: The drugs N-Acetylcysteine and Metamizole may falsely depress this assay. Normal range: <150 mg/dL Borderline High: 150-199 mg/dL High: 200-499 mg/dL Very High: >500 mg/dL Performed By: #### L 501.9520, L506.1001, L100.0100, L500.4100, L500.4050 ####[facility] [address] [place], [address] Thyroid Stim Hormone (TSH)on 12-31-2024 TSH 2.700 uIU/mL Normal 0.300-4.200 [facility] Comment on above: Performed By: #### L 501.9520, L506.1001, L100.0100, L500.4100, L500.4050 ####[facility] [address] [place], [address] Vitamin D,25 Hydroxyon 12-31 Vitamin D 25-OH 34.2 ng/mL Normal 30-100 [facility] Comment on above: Result Comment: Sari min D Status Deficiency: <20 ng/mL (50nmol/L) Insufficiency: 20-30 ng/mL (50-75 nmol/L) Sufficiency: 30-100 ng/mL (75-250 nmol/L) Toxicity: >100 ng/mL (>250 nmol/L) Performed By: #### L 501.9520, L506.1001, L100.0100, L500.4100, L500.4050 ####[facility] [address] [place], [address] Cardiology Visit Reporton Cardiology Visit Report [facility] 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 Accompanied by: Self Is patient in pain?: No Allergies Food Allergies: Uncoded Allergy (Verified 08/13/24 08:40) Rash Iodine and Iodide Containing Produc Allergy (Verified 08/13/24 08:40) Itching shellfish derived Allergy (Verified 08/13/24 08:40) Itching losartan Adverse Reaction (Severe, Verified 08/13/24 08:40) Severe hypotension and near syncope petrolatum,white (From Petroleum Jelly) Adverse Reaction (Verified 08/13/24 08:40) Other Ervkdvg-XWQ-DnM Reductase Inhibitor (Djbgqqe-Txa-Syr Reductase Inhibitor) Adverse Reaction (Verified 08/13/24 08:40) [...] PO QDAY 02/03/24 08/13/24 His tory vitamins A,C,K-maxu-rdbrmg 4,296 1 cap PO BID 02/03/24 08/13/24 [...] Hyperlipidemia Essential hypertension Atherosclerotic heart disease of ka[place] coronary artery without angina pectoris Atypical chest [...] 07-02-2024 Anion gap [Moles/Vol] 13 mmol/L 5-15 [facility] Automated lymphocyte count a s percentage of total leukocytesOrdered By: Fox Fischer on 07-02-2024 Lymphocytes/100 WBC Auto (Unsp spec) 31.7 % 19- [facility] BUN/creatinine ratioOrdered By: Fox Fischer on 07-02-2024 Urea nitrogen/Creatinine [Mass ratio] 12.2 mg/mg 10-20 [facility] Basophil percentageOrdered B y: Fox Fischer on 07-02-2024 Basophils/100 WBC (Bld) 0.8 % 0-1 [facility] Bilirubin, totalOrdered By: Fox Fischer on 07-02-2024 Bilirubin [Mass/Vol] 0.45 mg/dL 0.00-1.30 [facility] CBC W/Diff, Automatedon 06-16 Absolute Lymph 1.93 X10 3/uL Normal 0.83-4.51 [facility] Comment on above: Performed By: #### L 500.4100, L506.1001, L501.9520, L500.4050, L100.0100 #### [facility] [address] [place], [address] Absolute Neut 3.0 X10 3/uL Normal 2.0-7.7 [facility] Comment on above: Performed By: #### L 500.4100, L506.1001, L501.9520, L500.4050, L100.0100 #### [facility] [address] [place], [address] Basophils/100 WBC (Bld) 0.8 % Normal 0-1 [facility] Comment on above: Performed By: #### L 500.4100, L506.1001, L501.9520, L500.4050, L100.0100 #### [facility] [address] [place], [address] Eosinophils/100 WBC (Bld) 8.0 % High 0-5 [facility] Comment on above: Performed By: #### L 500.4100, L506.1001, L501.9520, L500.4050, L100.0100 #### [facility] [address] [place], [address] Erythrocyte distribution width (RBC) [Ratio] 12.7 % Normal 11.6-14.6 [facility] Comment on above: Performed By: #### L 500.4100, L506.1001, L501.9520, L500.4050, L100.0100 #### [facility] [address] [place], [address] Hematocrit (Bld) [Volume fraction] 42.5 % Normal 40-54 [facility] Comment on above: Performed By: #### L 500.4100, L506.1001, L501.9520, L500.4050, L100.0100 #### [facility] [address] [place], [address] Hemoglobin (Bld) [Mass/Vol] 14.4 g/dL Normal 13.0-16.5 [facility] Comment on above: Performed By: #### L 500.4100, L506.1001, L501.9520, L500.4050, L100.0100 #### [facility] [address] [place], [address] IG% 0.700 Normal 0.0-0.9 [facility] Comment on above: Result Comment: IG% - Immature Granulocytes (promyelocytes, myelocytes and metamyelocytes) > 1% indicates that a LEFT SHIFT is Present. Performed By: #### L 500.4100, L506.1001, L501.9520, L500.4050, L100.0100 #### [facility] [address] [place], [address] Lymphocytes/100 WBC (Bld) 31.7 % Normal 19-41 [facility] Comment on above: Performed By: #### L 500.4100, L506.1001, L501.9520, L500.4050, L100.0100 #### [facility] [address] [place], [address] MCH (RBC) [Entitic mass] 31.6 pg Normal 27.0-32.0 [facility] Comment on above: Performed By: #### L 500.4100, L506.1001, L501.9520, L500.4050, L100.0100 #### [facility] [address] [place], [address] MCHC (RBC) [Mass/Vol] 33.9 g/dL Normal 32-36 [facility] Comment on above: Performed By: #### L 500.4100, L506.1001, L501.9520, L500.4050, L100.0100 #### [facility] [address] [place], [address] MCV (RBC) [Entitic vol] 93.4 fL Normal 80-94 [facility] Comment on above: Performed By: #### L 500.4100, L506.1001, L501.9520, L500.4050, L100.0100 #### [facility] [address] [place], [address] Monocytes/100 WBC (Bld) 8.9 % Normal 0-10 [facility] Comment on above: Performed By: #### L 500.4100, L506.1001, L501.9520, L500.4050, L100.0100 #### [facility] [address] [place], [address] Neutrophils/100 WBC (Bld) 49.9 % Normal 47-70 [facility] Comment on above: Performed By: #### L 500.4100, L506.1001, L501.9520, L500.4050, L100.0100 #### [facility] [address] [place], [address] Nucleated RBC (Bld) [#/Vol] 0 10*3/uL Normal 0-5 [facility] Comment on above: Performed By: #### L 500.4100, L506.1001, L501.9520, L500.4050, L100.0100 #### [facility] [address] [place], [address] Platelet mean volume (Bld) [Entitic vol] 9.9 fL Normal 6.2-12.0 [facility] Comment on above: Performed By: #### L 500.4100, L506.1001, L501.9520, L500.4050, L100.0100 #### [facility] [address] [place], [address] Platelets (Bld) [#/Vol] 215 10*3/uL Normal 150-450 [facility] Comment on above: Performed By: #### L 500.4100, L506.1001, L501.9520, L500.4050, L100.0100 #### [facility] [address] [place], [address] RBC (Bld) [#/Vol] 4.55 10*6/uL Low 4.6-6.2 [facility] Comment on above: Performed By: #### L 500.4100, L506.1001, L501.9520, L500.4050, L100.0100 #### [facility] [address] [place], [address] RDW SD 43.7 fl Normal 35.1-43.9 [facility] Comment on above: Performed By: #### L 500.4100, L506.1001, L501.9520, L500.4050, L100.0100 #### [facility] [address] [place], [address] WBC (Bld) [#/Vol] 6.1 10*3/uL Normal 4.4-11.0 [facility] Comment on above: Performed By: #### L 500.4100, L506.1001, L501.9520, L500.4050, L100.0100 #### [facility] [address] [place], [address] Calculated very low density lipoprotein (VLDL) cholesterol measurementOrdered By: Fox Fischer on 07-02-2024 Calculated very low density lipoprotein (VLDL) cholesterol measurement 26 mg/dL 5-40 [facility] VLDL Cholesterol 26 mg/dL 5-40 [facility] Carbon dioxide, total [Moles /volume] in Central venous bloodOrdered By: Fox iFscher on 07-02-2024 CO2 [Moles/Vol] 24.5 mmol/L 21.0-32.0 [facility] Chloride assayOrdered By: Jaciel Fischer on 07-02-2024 Chloride [Moles/Vol] 104 mmol/L 98-108 [facility] Comprehensive Metabolic Prof ilon 07-02-2024 Albumin [Mass/Vol] 4.8 g/dL Normal 3.4-4.8 [facility] Comment on above: Performed By: #### L 500.4100, L506.1001, L501.9520, L500.4050, L100.0100 #### [facility] [address] [place], [address] Albumin/Globulin [Mass ratio] 1.6 {ratio} Normal 0.9-2.4 [facility] Comment on above: Performed By: #### L 500.4100, L506.1001, L501.9520, L500.4050, L100.0100 #### [facility] [address] [place], [address] ALK PHOS 75 U/L Normal 40-129 [facility] Comment on above: Performed By: #### L 500.4100, L506.1001, L501.9520, L500.4050, L100.0100 #### [facility] [address] [place], [address] ALT [Catalytic activity/Vol] 26 U/L Normal <=46 [facility] Comment on above: Performed By: #### L 500.4100, L506.1001, L501.9520, L500.4050, L100.0100 #### [facility] [address] [place], [address] AST [Catalytic activity/Vol] 32 U/L Normal <=37 [facility] Comment on above: Performed By: #### L 500.4100, L506.1001, L501.9520, L500.4050, L100.0100 #### [facility] [address] [place], [address] Bilirubin [Mass/Vol] 0.45 mg/dL Normal 0.00-1.30 [facility] Comment on above: Performed By: #### L 500.4100, L506.1001, L501.9520, L500.4050, L100.0100 #### [facility] [address] [place], [address] BUN/CRE 12.2 RATIO Normal 10-20 [facility] Comment on above: Performed By: #### L 500.4100, L506.1001, L501.9520, L500.4050, L100.0100 #### [facility] [address] [place], [address] Calcium [Mass/Vol] 9.5 mg/dL Normal 7.6-11.0 [facility] Comment on above: Performed By: #### L 500.4100, L506.1001, L501.9520, L500.4050, L100.0100 #### [facility] [address] [place], [address] Chloride [Moles/Vol] 104 mmol/L Normal 98-108 [facility] Comment on above: Performed By: #### L 500.4100, L506.1001, L501.9520, L500.4050, L100.0100 #### [facility] [address] [place], [address] CO2 [Moles/Vol] 24.5 mmol/L Normal 21.0-32.0 [facility] Comment on above: Performed By: #### L 500.4100, L506.1001, L501.9520, L500.4050, L100.0100 #### [facility] [address] [place], [address] Creatinine [Mass/Vol] 1.26 mg/dL High 0.70-1.20 [facility] Comment on above: Performed By: #### L 500.4100, L506.1001, L501.9520, L500.4050, L100.0100 #### [facility] [address] [place], [address] GAP 13 Normal 5-15 [facility] Comment on above: Performed By: #### L 500.4100, L506.1001, L501.9520, L500.4050, L100.0100 #### [facility] [address] [place], [address] GFR/1.73 sq M.predicted among non-blacks MDRD (S/P/Bld) [Vol rate/Area] 58 mL/min/{1.73_m2} Low >60 [facility] Comment on above: Result Comment: mL/m in/1.73m2 CKD-EPI Creatinine Equation (2020) Performed By: #### L 500.4100, L506.1001, L501.9520, L500.4050, L100.0100 #### [facility] [address] [place], [address] Globulin (S) [Mass/Vol] 3.0 g/dL Normal 2.2-4.2 [facility] Comment on above: Performed By: #### L 500.4100, L506.1001, L501.9520, L500.4050, L100.0100 #### [facility] [address] [place], [address] Glucose [Mass/Vol] 103 mg/dL High 70-99 [facility] Comment on above: Performed By: #### L 500.4100, L506.1001, L501.9520, L500.4050, L100.0100 #### [facility] [address] [place], [address] Potassium [Moles/Vol] 4.4 mmol/L Normal 3.3-5.1 [facility] Comment on above: Performed By: #### L 500.4100, L506.1001, L501.9520, L500.4050, L100.0100 #### [facility] [address] [place], [address] Sodium [Moles/Vol] 141 mmol/L Normal 133-145 [facility] Comment on above: Performed By: #### L 500.4100, L506.1001, L501.9520, L500.4050, L100.0100 #### [facility] [address] [place], [address] T PROT 7.8 g/dL Normal 5.9-8.4 [facility] Comment on above: Performed By: #### L 500.4100, L506.1001, L501.9520, L500.4050, L100.0100 #### [facility] [address] [place], [address] Urea nitrogen [Mass/Vol] 15 mg/dL Normal 4-19 [facility] Comment on above: Performed By: #### L 500.4100, L506.1001, L501.9520, L500.4050, L100.0100 #### [facility] [place], [address] Eosinophil percentageOrdered By: Fox Fischer 07-02-2024 Eosinophils/100 WBC (Bld) 8.0 % High 0-5 [facility] Erythrocyte distribution wid th (RBC) [Ratio]Ordered By: [facility] 07-02-2024 Erythrocyte distribution width (RBC) [Entitic vol] 43.7 fL 35.1-43.9 [facility] Erythrocyte distribution wid th ratioOrdered By: [facility] 07-02-2024 Erythrocyte distribution width (RBC) [Ratio] 12.7 % 11.6-14.6 [facility] Erythrocyte distribution wid th standard deviationOrdered By: [facility] 07-02-2024 Erythrocyte distribution width (RBC) [Ratio] 43.7 fl 35.1-43.9 [facility] GFR/1.73 sq M.predicted ned g non-blacks MDRD (S/P/Bld) [Vol rate/Area]Ordered By: Fox Fischer 07-02-2024 Estimated GFR (MDRD) Non-Af Amer 58 Low >60 [facility] Comment on above: mL/min/1.73m2 CKD-EP I Creatinine Equation (2020) Glomerular filtration rate ( GFR) estimation/1.73 sq m using serum, plasma, or whole bOrdered By: Fox Fischer 07-02-2024 GFR/1.73 sq M.predicted among non-blacks MDRD (S/P/Bld) [Vol rate/Area] 58 mL/min/{1.73_m2} Low >60 [facility] Comment on above: mL/min/1.73m2 CKD-EP I Creatinine Equation (2020) Hematocrit Auto (Bld) [Volum e fraction]Ordered By: Fox Fischer 07-02-2024 Hematocrit (Bld) [Volume fraction] 42.5 % 40-54 [facility] Hemoglobin measurementOrdere d By: Fox Ficsher 07-02-2024 Hemoglobin (Bld) [Mass/Vol] 14.4 g/dL 13.0-16.5 [...] [facility] Comment on above: Kazkcwirkc=769-915 m g/dL & Higher Lizd=582 mg/dL or greater LDL Cholesterol, Calculated 155 mg/dL [facility] Comment on above: Mmgiefpcea=822-445 m g/dL & Higher Mtoc=733 mg/dL or greater Laboratory - Chemistry and C hemistry - challengeOrdered By: Fox Fischer on 07-02-2024 AST [Catalytic activity/Vol] 32 U/L <38 [facility] Lipid Profileon 07-02-2024 CHOL:HDL 5.17 Normal [facility] Comment on above: Performed By: #### L 500.4100, L506.1001, L501.9520, L500.4050, L100.0100 #### [facility] [address] [place], [address] Cholesterol [Mass/Vol] 224 mg/dL High <=200 [facility] Comment on above: Result Comment: Chol esterol level, Desirable <200 mg/dL Borderline high cholesterol 200-239 mg/dL High cholesterol >=240 mg/dL Recommendations of the NCEP Adult Treatment Panel for the following risk-cutoff thresholds for the [place] population. Performed By: #### L 500.4100, L506.1001, L501.9520, L500.4050, L100.0100 #### [facility] [address] [place], [address] Cholesterol in HDL [Mass/Vol] 43 mg/dL Normal [facility] Comment on above: Result Comment: Yesenia onal Cholesterol Education Program (NCEP) guidelines: <40 mg/dL: Low HDL-cholesterol (major risk factor for CHD) >= 60 mg/dL: High HDL-cholesterol (negative risk factor for CHD) HDL-cholesterol is affected by a number of factors, e.g. smoking, exercise, hormones, sex and age. Performed By: #### L 500.4100, L506.1001, L501.9520, L500.4050, L100.0100 #### [facility] [address] [place], [address] Cholesterol in LDL [Mass/Vol] 155 mg/dL Normal [facility] Comment on above: Result Comment: Bord ipufyb=274-889 mg/dL Higher Qkhm=112 mg/dL or greater Performed By: #### L 500.4100, L506.1001, L501.9520, L500.4050, L100.0100 #### [facility] [address] [place], [address] Cholesterol in VLDL [Mass/Vol] 26 mg/dL Normal 5-40 [facility] Comment on above: Performed By: #### L 500.4100, L506.1001, L501.9520, L500.4050, L100.0100 #### [facility] [address] [place], [address] Triglyceride [Mass/Vol] 129 mg/dL Normal [facility] Comment on above: Result Comment: The drugs N-Acetylcysteine and Metamizole may falsely depress this assay. Normal range: <150 mg/dL Borderline High: 150-199 mg/dL High: 200-499 mg/dL Very High: >500 mg/dL Performed By: #### L 500.4100, L506.1001, L501.9520, L500.4050, L100.0100 #### [facility] [address] [place], [address] Lymphocytes Auto (Unsp spec) [#/Vol]Ordered By: Fox [...] 07-02-2024 MCHC (RBC) [Mass/Vol] 33.9 g/dL 32-36 [facility] Mean platelet volume determi nationOrdered By: Fox [...] on 07-02-2024 Potassium [Moles/Vol] 4.4 mmol/L 3.3-5.1 [facility] Potassium measurement (mass/ volume)Ordered By: Fox Fischer on 07-02-2024 Potassium (Unsp spec) [Mass/Vol] 4.4 mmol/L 3.3-5.1 [facility] RBC Auto (Bld) [#/Vol]Ordere d By: Fox Fischer on 07-02-2024 RBC (Bld) [#/Vol] 4.55 10*6/uL Low 4.6-6.2 [facility] Screening total cholesterol/ high density lipoprotein (HDL) cholesterol ratioOrdered By: Fox Fischer on 07-02-2024 Cholesterol.total/Chol esterol in HDL [Mass ratio] 5.17 {ratio} [facility] Serum creatinine measurement (mass/volume)Ordered By: Fox Fischer on 07-02-2024 Creatinine [Mass/Vol] 1.26 mg/dL High 0.70-1.20 [facility] Serum globulin measurementOr dered By: Fox Fischer 07-02-2024 Globulin (S) [Mass/Vol] 3.0 g/dL 2.2-4.2 [facility] Serum glucose measurement (m ass/volume)Ordered By: Fox Fischer 07-02-2024 Glucose [Mass/Vol] 103 mg/dL High 70-99 [facility] Serum or plasma alanine santa otransferase (ALT) measurementOrdered By: Fox Fischer 07-02-2024 ALT [Catalytic activity/Vol] 26 U/L <47 [facility] Serum or plasma albumin prem urement (mass/volume)Ordered By: Fox Fischer 07-02-2024 Albumin [Mass/Vol] 4.8 g/dL 3.4-4.8 [facility] Serum or plasma albumin/glob ulin mass ratioOrdered By: Fox Fischer 07-02-2024 Albumin/Globulin [Mass ratio] 1.6 {ratio} 0.9-2.4 [facility] Serum or plasma alkaline kurt sphatase measurementOrdered By: Fox Fischer 07-02-2024 ALP [Catalytic activity/Vol] 75 U/L 40-129 [facility] Serum or plasma calcium prem urement (mass/volume)Ordered By: Fox Fischer 07-02-2024 Calcium [Mass/Vol] 9.5 mg/dL 7.6-11.0 [facility] Serum or plasma cholesterol in [...] 07-02-2024 Cholesterol [Mass/Vol] 224 mg/dL High <201 [facility] Comment on above: Cholesterol level, D esirable <200 mg/dLBorderline high cholesterol 200-239 mg/dLHigh cholesterol >=240 mg/dLRecommendations of the NCEP Adult Treatment Panel for the following risk-cutoff thresholds for the [place] population. Serum or plasma urea nitroge n measurement (mass/volume)Ordered By: Fox Fischer on 07-02-2024 Urea nitrogen [Mass/Vol] 15 mg/dL 4-19 [facility] Sodium levelOrdered By: Fox Fischer 07-02-2024 Sodium [Moles/Vol] 141 mmol/L 133-145 [facility] TSH DL <= 0.005 mIU/L QnOrde red By: Fox Fischer on 07-02-2024 Thyroid Stimulating Hormone (TSH) 2.240 uIU/mL 0.300-4.200 [facility] TSH Qn 2.240 uIU/mL 0.300-4.200 [facility] Thyroid Stim Hormone (TSH)on 07-02-2024 TSH 2.240 uIU/mL Normal 0.300-4.200 [facility] Comment on above: Performed By: #### L 500.4100, L506.1001, L501.9520, L500.4050, L100.0100 #### [facility] [address] [place], [place], [id number] Total proteinOrdered By: Fox Fischer on 07-02-2024 Protein [Mass/Vol] 7.8 g/dL 5.9-8.4 [facility] Triglycerides measurementOrd ered By: Fox Fischer on 07-02-2024 Triglyceride [Mass/Vol] 129 mg/dL <199 [facility] Comment on above: The drugs N-Acetylcy steine and Metamizole may falsely depress this assay. Normal range: <150 mg/dLBorderline High: 150-199 mg/dLHigh: 200-499 mg/dLVery High: >500 mg/dL Vitamin D, 25-hydroxyOrdered By: Fox Fischer on 07-02-2024 Vitamin D 25-Hydroxy 33.6 ng/mL 30-100 [facility] Comment on above: Vitamin D StatusDefi [...] ng/mL (>250 nmol/L) Performed By: #### L 500.4100, L506.1001, L501.9520, L500.4050, L100.0100 #### [facility] [address], [address] White blood cell (WBC) count Ordered By: Fox Fischer on 07-02-2024 WBC (Bld) [#/Vol] 6.1 10*3/uL 4.4-11.0 [facility] Pulmonary Visit Reporton Pulmonary Visit Report [facility] [place] [address] [place], [place] [address] [place] [address] OFFICE VISIT Date of Service: 05/08/24 MR#: [id number] Acct: [id number] Name: RAYO LEE Rep #: [id number] : 1945 Provider: XAVIER Patel Age/Sex: 78/M Location: [facility] Status: Signed Assessment and Plan Assessment and Plan (1) MARIBELL (obstructive sleep apnea): Status: Chronic Comment: BiPAP 17/13 centimeters of water Plan: He is using [...] time. Plan Details Follow Up: 1 Year ([facility]) HPI HPI Comments Details: This patient [...] 1 Y FU Chief Complaint: Chest pressure Chemistry Intern Required: No DME Vendor: [employer] Accompanied by: Self Allergies Food Allergies: Uncoded Allergy (Verified 05/08/24 11:12) Rash Iodine and Iodide Containing Produc Allergy (Verified 05/08/24 11:12) Itching shellfish derived Allergy (Verified 05/08/24 11:12) Itching losartan Adverse Reaction (Severe, Verified 05/08/24 11:12) Severe hypotension and near syncope petrolatum,white (From Petroleum Jelly) Adverse Reaction (Verified 05/08/24 11:12) Other Soqsvwn-NQT-SxB Reductase Inhibitor (Ijaqiqg-Roj-Ttd Reductase Inhibitor) Adverse Reaction (Verified 05/08/24 11:12) [...] PO QDAY 02/03/24 05/08/24 His tory vitamins A,C,R-cdam-aghkoe 4,296 1 cap PO BID 02/03/24 05/08/24 His tory mcg-226 mg-90 mg capsule (PreserVision AREDS) aspirin 81 mg tablet,delayed 81 mg PO .qod #45 tabs 04/06/24 Rx release famotidine 20 mg tablet 20 mg PO QDAY 05/08/24 05/08/24 Hi story latanoprost 0.005 % eye drops 1 drp ophthalmic (eye) QHS 5 05/08/24 History Have you fallen in the past year?: Yes [facility] Medical History Wears gl (more content not included)... Normal [facility] 12 Lead EKG performed by [facility] on 02-03-2024 12 Lead EKG performed by [place] [id number] [place] [address] 12 Lead EKG performed by [facility] 02/03/24 1015 MR#: [id number] Acct: [id number] Name: RAYO LEE Rep #: [id number] : 1945 78 From: Brandon Fulton MD Attending Dr: Dr. Brandon Fulton MD Status: DE P AMB Ordering Dr: Brandon Fulton MD Date: 02/03/24 [place] [facility] [place]: M C Admitted: [facility]/12 Lead EKG performed by [facility] ECG Report Interpretation --Sinus Rhythm - occasional PAC # PACs = 1.WITHIN NORMAL LIMITSElectronically signed on 02/03/2024 at 11:[address] Brandon Fulton [employer] Version [id number] 02/03/24 1156 Date Brandon Fulton MD CC: Dr. Fox Fischer MD Date Dictated: 02/03/24 1015 Date Transcribed: 02/03/24 1015 Title Supervisor: Signed Normal [facility] Cardiology Visit Reporton Cardiology Visit Report [facility] [address] [place] [address] OFFICE VISIT Date of Service: 02/03/24 MR#: [id number] Acct: [id number] Name: RAYO LEE Rep #: [id number] : 1945 Provider: Dr. Brandon blackmon MD Age/Sex: 78/M Location: [facility] Status: Signed HPI HPI History of Present Illness Details: Rayo Lee is a 78-year-old gentleman that presents [...] Monitor Intake Visit Reasons: 6 M FU Chemistry Intern Required: No Accompanied by: Self Is patient in pain?: No Allergies Food Allergies: Uncoded Allergy (Verified 02/03/24 10:18) Rash Iodine and Iodide Containing Produc Allergy (Verified 02/03/24 10:18) Itching shellfish derived Allergy (Verified 02/03/24 10:18) Itching losartan Adverse Reaction (Severe, Verified 02/03/24 10:18) Severe hypotension and near syncope petrolatum,white (From Petroleum Jelly) Adverse Reaction (Verified 02/03/24 10:18) Other Rmfzwvm-JFX-AiS Reductase Inhibitor (Bcgrrol-Xxl-Tff Reductase Inhibitor) Adverse Reaction (Verified 02/03/24 10:18) [...] mg PO QDAY 02/03/24 02/03/24 History vitamins A,C,U-nrkm-ykcjhg 4,296 1 cap PO BID 02/03/24 02/03/24 [...] Hyperlipidemia Essential hypertension Atherosclerotic heart disease of [place] coronary artery without angina pectoris Atypical chest [...] not included)... Normal [facility] ABO/Rh (Gel)on 07-16-2023 ABO/Rh Interp Positive Invalid Interpretation Code [facility] ([place]) Comment on above: Performed By: #### A BSGEL, ABOGEL #### [address] [address] ABS (Gel)on 07-16-2023 ABSC Interp (Gel) Negative Normal [facility] ([place]) Comment on above: Performed By: #### A BOGEL, ABSGEL, ALB, CBC, ANEU, ADIFF, GFR, BMP #### [address] [address] LABORATORYOrdered By: Kiki Gill on 07-16-2023 ABO [...] Sign Date: 07/16/2023 9:24:51 AM Ordering Provider: VIRGIL SHIRLEY [facility] ([place]) Absolute lymphocyte countOrd ered By: Fox Fischer [...] [facility] Bilirubin [Mass/Vol] 0.60 mg/dL 0.20-1.00 [facility] Comment on above: For patients on eltr ombopag therapy, use of Dimension [place] TBIL is not recommended. Chloride [Moles/Vol] 109 mmol/L 98-107 [facility] Cholesterol [Mass/Vol] 199 mg/dL <200 [facility] Comment on above: <200 mg/dL Desirable 200-240 mg/dL Borderline >240 mg/dL High Risk Eosinophils/100 WBC (Bld) 7.6 % 0-5 [facility] Glucose [Mass/Vol] 132 mg/dL 74-106 [facility] Comment on above: Fasting Glucose [...] [facility] Potassium [Moles/Vol] 3.9 mmol/L 3.5-5.1 [facility] Protein [Mass/Vol] 7.5 g/dL 6.4-8.2 [facility] Sodium [Moles/Vol] 141 mmol/L 136-145 [facility] Triglyceride [Mass/Vol] 108 mg/dL <199 [facility] Comment on above: The drugs N-Acetylcy steine and Metamizole may falsely depress this assay.Serum Triglycerides Reference Interval Normal <150 mg/dL Borderline high 150 - 199 mg/dL High 200 - 499 mg/dL Very High > or = 500 mg/dL WBC (Bld) [#/Vol] 6.5 10*3/uL 4.4-11.0 [facility] Determination of erythrocyte mean corpuscular volume (MCV)Ordered By: Fox Fischer on 07-02-2023 MCV (RBC) [Entitic vol] 94.4 fL 80-94 [facility] Erythrocyte distribution wid th ratioOrdered By: [facility]-02[facility]2023 Erythrocyte distribution width (RBC) [Ratio] 12.5 % 11.6-14.6 [facility] Erythrocyte distribution wid th standard deviationOrdered By: [facility] 07-02-2023 Erythrocyte distribution width (RBC) [Entitic vol] 43.1 fL 35.1-43.9 [facility] Hematocrit Auto (Bld) [Volum e fraction]Ordered By: Fox Aaliyah 07-02-2023 Hematocrit (Bld) [Volume fraction] 42.3 % 40-54 [facility] Immature granulocytes/100 WB C Auto (Bld)Ordered By: Fox Fischer 07-02-2023 Immature granulocytes/100 WBC (Bld) 0.600 % 0.0-0.9 [facility] Comment on above: IG% - Immature Granu locytes (promyelocytes, myelocytes and metamyelocytes) > 1% indicates that a LEFT SHIFT is Present. Laboratory - Chemistry and C hemistry - challengeOrdered By: Fox Fischer 07-02-2023 Albumin/Globulin [Mass ratio] 1.1 {ratio} 0.9-2.4 [...] and Cell countsOrdered By: Fox Fischer on 07-02-2023 MCH (RBC) [Entitic mass] 31.0 pg 27.0-32.0 [facility] MCHC (RBC) [Mass/Vol] 32.9 g/dL 32-36 [facility] Nucleated RBC/100 WBC (Bld) [Ratio] 0 [...] med using the TPSA assay method for the[facility] chemistry system. Values obtained with differentassay methods cannot be used interchangably.When changing PSA assays in the course of monitoring apatient, additional sequential testing should be carriedout to confirm baseline values. Vitamin D 25-Hydroxy 35.5 ng/mL [facility] Comment on above: Vitamin D 25(OH) Sta tus Range Deficiency <20 ng/mL (50nmol/L) Insufficiency 20 - 30 ng/mL (50 - 75 nmol/L) Sufficiency 30 - 100 ng/mL (75 - 250 nmol/L) Toxicity >100 ng/mL (>250 nmol/L) VLDL Cholesterol 22 mg/dL 5-40 [facility] RBC Auto (Bld) [#/Vol]Ordere d By: Fox Fischer on 07-02-2023 RBC (Bld) [#/Vol] 4.48 10*6/uL 4.6-6.2 [facility] Serum or plasma calcium prem urement (mass/volume)Ordered By: Fox Fischer on 07-02-2023 Calcium [Mass/Vol] 9.1 mg/dL 8.5-10.1 [facility] Serum or plasma creatinine m easurement (mass/volume)Ordered By: Fox Fischer on 07-02-2023 Creatinine [Mass/Vol] 1.29 mg/dL 0.70-1.30 [facility] Comment on above: The validity of the [...] 0.0 10 3/mcL Normal 0.0-0.2 [facility] ([place]) Comment on above: Performed By: #### A BOGEL, ABSGEL, ALB, CBC, ANEU, ADIFF, GFR, BMP #### [address] [address] Basophils/100 WBC (Bld) 0.8 % Normal 0.0-2.5 [facility] ([place]) Comment on above: Performed By: #### A BOGEL, ABSGEL, ALB, CBC, ANEU, ADIFF, GFR, BMP #### [address] [address] Eosinophil, Absolute 0.4 10 3/mcL Normal 0.0-0.4 [facility] ([place]) Comment on above: Performed By: #### A BOGEL, ABSGEL, ALB, CBC, ANEU, ADIFF, GFR, BMP #### [address] [address] Eosinophils/100 WBC (Bld) 7.4 % High 0.0-7.0 [facility] ([place]) Comment on above: Performed By: #### A BOGEL, ABSGEL, ALB, CBC, ANEU, ADIFF, GFR, BMP #### [address] [address] Lymphocyte, Absolute 1.6 10 3/mcL Normal 0.8-3.9 [facility] ([place]) Comment on above: Performed By: #### A BOGEL, ABSGEL, ALB, CBC, ANEU, ADIFF, GFR, BMP #### [address] [address] Lymphocytes/100 WBC (Bld) 28.0 % Normal 10.0-50.0 [facility] ([place]) Comment on above: Performed By: #### A BOGEL, ABSGEL, ALB, CBC, ANEU, ADIFF, GFR, BMP #### [address] [address] Monocyte, Absolute 0.5 10 3/mcL Normal 0.2-1.0 [facility] ([place]) Comment on above: Performed By: #### A BOGEL, ABSGEL, ALB, CBC, ANEU, ADIFF, GFR, BMP #### [address] [address] Monocytes/100 WBC (Bld) 9.0 % Normal 1.7-13.0 [facility] ([place]) Comment on above: Performed By: #### A BOGEL, ABSGEL, ALB, CBC, ANEU, ADIFF, GFR, BMP #### [address] [address] Neutrophils/100 WBC (Bld) 54.8 % Normal 37.0-80.0 [facility] ([place]) Comment on above: Performed By: #### A BOGEL, ABSGEL, ALB, CBC, ANEU, ADIFF, GFR, BMP #### [address] [address] .GFRon 06-26-2023 GFR 67 ml/min/1.73sqm Normal [facility] ([place]) Comment on above: Result Comment: GFR Population [...] ALB, CBC, ANEU, ADIFF, GFR, BMP #### [address] [address] GFR Non- 55 ml/min/1.73sqm Normal [facility] ([place]) Comment on above: Result Comment: GFR Population [...] ALB, CBC, ANEU, ADIFF, GFR, BMP #### [address] [address] .NEUABSon 06-26-2023 Neutrophil, Absolute 3.1 10 3/mcL Normal 2.9-6.2 [facility] ([place]) Comment on above: Performed By: #### A BOGEL, ABSGEL, ALB, CBC, ANEU, ADIFF, GFR, BMP #### [address] [address] ABO/Rh (Gel)on 06-26-2023 ABO/Rh Interp Positive Invalid Interpretation Code [facility] ([place]) Comment on above: Performed By: #### A BOGEL, ABSGEL, ALB, CBC, ANEU, ADIFF, GFR, BMP #### [address] [address] ABS (Gel)on 06-26-2023 ABSC Interp (Gel) Negative Normal [facility] ([place]) Comment on above: Performed By: #### A BOGEL, ABSGEL, ALB, CBC, ANEU, ADIFF, GFR, BMP #### [address] [address] ALBon 06-26-2023 Albumin Level 4.2 G/dL Normal 3.4-4.8 [facility]) Comment on above: Performed By: #### A BOGEL, ABSGEL, ALB, CBC, ANEU, ADIFF, GFR, BMP #### [address] [address] BMPon 06-26-2023 BUN/Creatinine Ratio 14 ratio Normal 7-27 [facility]) Comment on above: Performed By: #### A BOGEL, ABSGEL, ALB, CBC, ANEU, ADIFF, GFR, BMP #### [address] [address] Calcium [Mass/Vol] 8.6 mg/dL Normal 8.4-10.2 [facility] ([place]) Comment on above: Performed By: #### A BOGEL, ABSGEL, ALB, CBC, ANEU, ADIFF, GFR, BMP #### [address] [address] Chloride [Moles/Vol] 104 mmol/L Normal 98-107 [facility] ([place]) Comment on above: Performed By: #### A BOGEL, ABSGEL, ALB, CBC, ANEU, ADIFF, GFR, BMP #### [address] [address] CO2 [Moles/Vol] 25 mmol/L Normal 23-31 [facility] ([place]) Comment on above: Performed By: #### A BOGEL, ABSGEL, ALB, CBC, ANEU, ADIFF, GFR, BMP #### [address] [address] Creatinine [Mass/Vol] 1.26 mg/dL Normal 0.70-1.30 [facility] ([place]) Comment on above: Performed By: #### A BOGEL, ABSGEL, ALB, CBC, ANEU, ADIFF, GFR, BMP #### [address] [address] Electrolyte Balance 13.0 mEq/L Normal 4.0-15.0 [facility] ([place]) Comment on above: Performed By: #### A BOGEL, ABSGEL, ALB, CBC, ANEU, ADIFF, GFR, BMP #### [address] [address] Glucose [Mass/Vol] 100 mg/dL Normal 83-110 [facility] ([place]) Comment on above: Performed By: #### A BOGEL, ABSGEL, ALB, CBC, ANEU, ADIFF, GFR, BMP #### [address] [address] Potassium [Moles/Vol] 4.2 mmol/L Normal 3.5-5.1 [facility] ([place]) Comment on above: Performed By: #### A BOGEL, ABSGEL, ALB, CBC, ANEU, ADIFF, GFR, BMP #### [address] [address] Sodium [Moles/Vol] 142 mmol/L Normal 136-145 [facility] ([place]) Comment on above: Performed By: #### A BOGEL, ABSGEL, ALB, CBC, ANEU, ADIFF, GFR, BMP #### [address] [address] Urea nitrogen [Mass/Vol] 18 mg/dL Normal 7-18 [facility] ([place]) Comment on above: Performed By: #### A BOGEL, ABSGEL, ALB, CBC, ANEU, ADIFF, GFR, BMP #### [address] [address] CBCon 06-26-2023 Erythrocyte distribution width (RBC) [Ratio] 13.1 % Normal 11.5-14.5 [facility]) Comment on above: Order Comment: Pre-A dmission Testing Performed By: #### A BOGEL, ABSGEL, ALB, CBC, ANEU, ADIFF, GFR, BMP #### [address] [address] Hematocrit (Bld) [Volume fraction] 41.1 % Low 42.0-52.0 [facility] ([place]) Comment on above: Order Comment: Pre-A dmission Testing Performed By: #### A BOGEL, ABSGEL, ALB, CBC, ANEU, ADIFF, GFR, BMP #### [address] [address] Hgb 14.3 G/dL Normal 14.0-18.0 [facility] ([place]) Comment on above: Order Comment: Pre-A dmission Testing Performed By: #### A BOGEL, ABSGEL, ALB, CBC, ANEU, ADIFF, GFR, BMP #### [address] [address] MCH (RBC) [Entitic mass] 32.0 pg High 27.0-31.2 [facility] ([place]) Comment on above: Order Comment: Pre-A dmission Testing Performed By: #### A BOGEL, ABSGEL, ALB, CBC, ANEU, ADIFF, GFR, BMP #### [address] [address] MCHC 34.9 G/dL Normal 31.8-35.4 [facility] ([place]) Comment on above: Order Comment: Pre-A dmission Testing Performed By: #### A BOGEL, ABSGEL, ALB, CBC, ANEU, ADIFF, GFR, BMP #### [address] [address] MCV (RBC) [Entitic vol] 91.6 fL Normal 80.0-94.0 [facility] ([place]) Comment on above: Order Comment: Pre-A dmission Testing Performed By: #### A BOGEL, ABSGEL, ALB, CBC, ANEU, ADIFF, GFR, BMP #### [place] [id number] Platelet 206 10 3/mcL Normal 130-400 [facility] ([place]) Comment on above: Order Comment: Pre-A dmission Testing Performed By: #### A BOGEL, ABSGEL, ALB, CBC, ANEU, ADIFF, GFR, BMP #### [address] [address] Platelet mean volume (Bld) [Entitic vol] 7.8 fL Normal 7.4-10.4 [facility] ([place]) Comment on above: Order Comment: Pre-A dmission Testing Performed By: #### A BOGEL, ABSGEL, ALB, CBC, ANEU, ADIFF, GFR, BMP #### [address] [address] RBC 4.48 10 6/mcL Normal 4.04-6.13 [facility] ([place]) Comment on above: Order Comment: Pre-A dmission Testing Performed By: #### A BOGEL, ABSGEL, ALB, CBC, ANEU, ADIFF, GFR, BMP #### [place] [id number] WBC 5.7 10 3/mcL Normal 4.6-10.8 [facility] ([place]) Comment on above: Order Comment: Pre-A dmission Testing Performed By: #### A BOGEL, ABSGEL, ALB, CBC, ANEU, ADIFF, GFR, BMP #### Daw[address] [place], [place] [address] CT KNEE W/O CONTRAST LEFTon 06-26-2023 CT [...] Sign Date: 06/26/2023 3:35:03 PM Ordering Provider: VIRGIL Sigala [facility] ([place]) LABORATORYOrdered By: Dottie Lou on 06-26-2023 ABO and Rh group Nom (Bld) Blood group O Rh(D) positive Invalid Interpretation Code AO BB Auto SS Blood group antibody screen Ql Negative ABSC (4/10/24 2:45 PM) Normal AO BB Auto SS [...] [facility] Bilirubin [Mass/Vol] 0.50 mg/dL 0.20-1.00 [facility] Comment on above: For patients on eltr ombopag therapy, use of Dimension [place] TBIL is not recommended. Chloride [Moles/Vol] 104 mmol/L 98-107 [facility] Eosinophils/100 WBC (Bld) 6.1 % 0-5 [facility] Glucose [Mass/Vol] 97 mg/dL 74-106 [facility] Neutrophils (Bld) [#/Vol] 3.4 10*3/uL 2.0-7.7 [facility] Neutrophils/100 WBC (Bld) 53.7 % 47-70 [facility] Potassium [Moles/Vol] 3.9 mmol/L 3.5-5.1 [facility] Protein [Mass/Vol] 7.7 g/dL 6.4-8.2 [facility] Sodium [Moles/Vol] 138 mmol/L 136-145 [facility] WBC (Bld) [#/Vol] 6.4 10*3/uL 4.4-11.0 [facility] Blood erythrocytes count (nu mber/volume)Ordered By: Fox Fischer on 12-24-2022 RBC (Bld) [#/Vol] 4.72 10*6/uL 4.6-6.2 [facility] Blood hemoglobin measurement (mass/volume)Ordered By: Fox Fischer on 12-24-2022 Hemoglobin (Bld) [Mass/Vol] 15.3 g/dL 13.0-16.5 [facility] Blood lymphocytes/100 leukoc ytesOrdered By: Fox Fischer on 12-24-2022 Lymphocytes/100 WBC (Bld) 28.3 % 19-41 [facility] Blood monocytes/100 leukocyt esOrdered By: [facility] Aaliyah on 12-24-2022 Monocytes/100 WBC (Bld) 10.5 % [...] Chemistry and C hemistry - challengeOrdered By: Fxo Fischer on 12-24-2022 ALP [Catalytic activity/Vol] 63 U/L 45-117 [facility] ALT [Catalytic activity/Vol] 55 U/L 16-61 [facility] CO2 [Moles/Vol] 28.0 mmol/L 21.0-32.0 [facility] Globulin (S) [Mass/Vol] 3.6 g/dL 2.2-4.2 [facility] Urea nitrogen/Creatinine [Mass ratio] 14.7 mg/mg 10-20 [facility] Laboratory - Hematology and Cell countsOrdered By: Fox Fischer on 12-24-2022 Erythrocyte distribution width (RBC) [Entitic vol] [...] 12-24-2022 MCHC (RBC) [Mass/Vol] 33.4 g/dL 32-36 [facility] No Panel InformationOrdered By: Fox Fischer on 12-24-2022 Estimated GFR (MDRD) Amer 65 mL/min >60 [facility] Comment on above: GFR Calc Estimated GFR (MDRD) Non-Af Amer 54 mL/min >60 [facility] Comment on above: Non- GFR Calc Thyroid Stimulating Hormone (TSH) 2.61 uIU/mL 0.358-3.74 [facility] Vitamin D 25-Hydroxy 32.8 ng/mL [facility] Comment on above: Vitamin D 25(OH) [...] on 12-24-2022 Albumin [Mass/Vol] 4.1 g/dL 3.2-5.0 [facility] Serum or plasma albumin/glob ulin mass ratioOrdered By: Fox Fischer on 12-24-2022 Albumin/Globulin [Mass ratio] 1.1 {ratio} 0.9-2.4 [facility] Serum or plasma calcium prem urement (mass/volume)Ordered By: Fox Fischer on 12-24-2022 Calcium [Mass/Vol] 9.5 mg/dL 8.5-10.1 [facility] Serum or plasma creatinine m easurement (mass/volume)Ordered By: Fox Fischer on 12-24-2022 Creatinine [Mass/Vol] 1.36 mg/dL 0.70-1.30 [facility] Comment on above: The validity of the [...] Papanicolaou smear with manual screening 34 U/L 15- [facility] Thin prep Papanicolaou [...] Hospital WBC (Bld) [#/Vol] 6.3 10*3/uL 4.4-11.0 [facility] Basophil percentage 2.5 mg/dL 2.5-4.9 [facility] Chloride [Moles/Vol] 107 mmol/L 98-[address] [facility] Glucose [Mass/Vol] 108 mg/dL 74-106 [facility] Comment on above: Fasting Glucose resu lt from 100 to 125 mg/dL suggests IMPAIRED HOMEOSTASIS per A.D.A. criteria. Potassium [Moles/Vol] 4.0 mmol/L 3.5-5.1 [facility] Sodium [Moles/Vol] 140 mmol/L 136-145 [facility] Blood erythrocytes count (nu mber/volume)Ordered By: Amita Brenner on 11-29-2022 RBC (Bld) [#/Vol] 4.59 10*6/uL 4.6-6.2 [facility] Blood hemoglobin measurement (mass/volume)Ordered By: Amita Brenner [...] 11-29-2022 ESR (Bld) [Velocity] 5 mm/h 0-20 [facility] Gram stain for investigation of transfusion [...] Laboratory - Hematology and Cell countsOrdered By: Aimta Brenner on 11-29-2022 Erythrocyte distribution width (RBC) [...] Hospital MCHC Auto (RBC) [Mass/Vol]Or dered By: Amita Brenner on 11-29-2022 MCHC (RBC) [Mass/Vol] 32.8 g/dL 32-36 [facility] No Panel InformationOrdered By: Amita Brenner on [...] on 11-29-2022 Albumin [Mass/Vol] 4.1 g/dL 3.2-5.0 [facility] Serum or plasma calcium prem urement (mass/volume)Ordered By: Amita Brenner on 11-29-2022 Calcium [Mass/Vol] 9.0 mg/dL 8.5-10.1 [facility] Serum or plasma creatinine m easurement (mass/volume)Ordered By: Amita Brenner on 11-29-2022 Creatinine [Mass/Vol] 1.27 mg/dL 0.70-1.30 [facility] Comment on above: The validity of the [...] Chemistry and C hemistry - challengeOrdered By: Virgil Shirley on 09-21-2022 Magnesium [Mass/Vol] 2.2 mg/dL 1.6-2.6 [facility] No Panel InformationOrdered By: Virgil Shirley on 09-21-2022 Nasal Screen MRSA/MSSA [facility] Thyroid Stimulating Hormone (TSH) 2.21 uIU/mL 0.358-3.74 [facility] Absolute lymphocyte countOrd ered By: Fox Fischer on 09-03-2022 Lymphocytes Auto (Unsp spec) [#/Vol] 2.03 10*3/uL 0.83-4.51 [facility] Basophil percentageOrdered B y: Fox Fischer on 09-03-2022 Basophils/100 WBC (Bld) 0.6 % 0-1 [facility] Bilirubin [Mass/Vol] 0.40 mg/dL 0.20-1.00 [facility] Comment on above: For patients on eltr ombopag therapy, use of Dimension [place] TBIL is not recommended. Chloride [Moles/Vol] 107 mmol/L 98-107 [facility] Eosinophils/100 WBC (Bld) 7.2 % 0-5 [facility] Glucose [Mass/Vol] 110 mg/dL 74-106 [facility] Comment on above: Fasting Glucose resu lt from 100 to 125 mg/dL suggests IMPAIRED HOMEOSTASIS per A.D.A. criteria. Neutrophils (Bld) [#/Vol] 3.2 10*3/uL 2.0-7.7 [facility] Neutrophils/100 WBC (Bld) 49.5 % 47-70 [facility] Potassium [Moles/Vol] 4.0 mmol/L 3.5-5.1 [facility] Protein [Mass/Vol] 7.6 g/dL 6.4-8.2 [facility] Sodium [Moles/Vol] 139 mmol/L 136-145 [facility] WBC (Bld) [#/Vol] 6.4 10*3/uL 4.4-11.0 [facility] Blood erythrocytes count (nu mber/volume)Ordered By: Fox Fischer on 09-03-2022 RBC (Bld) [#/Vol] 4.64 10*6/uL 4.6-6.2 [facility] Blood hemoglobin measurement (mass/volume)Ordered By: Fox Fischer [...] Laboratory - CoagulationOrde red By: Fox Fischer 09-03-2022 PT Coag (PPP) [Time] 15.0 s 11.7-14.9 [facility] Laboratory - Hematology and Cell countsOrdered By: Fox Fischer 09-03-2022 Erythrocyte distribution width (RBC) [Entitic vol] [...] 09-03-2022 MCHC (RBC) [Mass/Vol] 33.1 g/dL 32-36 [facility] No Panel InformationOrdered By: Fox Fischer [...] on 09-03-2022 Albumin [Mass/Vol] 3.8 g/dL 3.2-5.0 [facility] Serum or plasma albumin/glob ulin mass ratioOrdered By: Fox Fischer on 09-03-2022 Albumin/Globulin [Mass ratio] 1.0 {ratio} 0.9-2.4 [facility] Serum or plasma calcium prem urement (mass/volume)Ordered By: Fox Fischer on 09-03-2022 Calcium [Mass/Vol] 9.1 mg/dL 8.5-10.1 [facility] Serum or plasma creatinine m easurement (mass/volume)Ordered By: Fox Fischer on 09-03-2022 Creatinine [Mass/Vol] 1.40 mg/dL 0.70-1.30 [facility] Comment on above: The validity of the [...] med using the TPSA assay method for the[facility] chemistry system. Values obtained with differentassay methods [...] [facility] Bilirubin [Mass/Vol] 0.80 mg/dL 0.20-1.00 [facility] Comment on above: For patients on eltr ombopag therapy, use of Dimension [place] TBIL is not recommended. Chloride [Moles/Vol] 106 mmol/L 98-107 [facility] Eosinophils/100 WBC (Bld) 9.4 % 0-5 [facility] Glucose [Mass/Vol] 109 mg/dL 74-106 [facility] Comment on above: Fasting Glucose resu lt from 100 to 125 mg/dL suggests IMPAIRED HOMEOSTASIS per A.D.A. criteria. Neutrophils (Bld) [#/Vol] 2.5 10*3/uL 2.0-7.7 [facility] Neutrophils/100 WBC (Bld) 47.2 % 47-70 [facility] Potassium [Moles/Vol] 4.2 mmol/L 3.5-5.1 [facility] Protein [Mass/Vol] 7.3 g/dL 6.4-8.2 [facility] Sodium [Moles/Vol] 140 mmol/L 136-145 [facility] Testosterone [Mass/Vol] 650.52 ng/dL [facility] Comment on above: CENTRAL 90% REFERENC E RANGES MALE AGE <50 197.44 - 669.58 ng/dL MALE AGE > or = 50 187.72 - 684.19 ng/dL FEMALE AGE <50 8.38 - 35.01 ng/dL FEMALE AGE > or = 50 <7.00 - 35.92 ng/dL Effective as of 10/11/20 WBC (Bld) [#/Vol] 5.3 10*3/uL 4.4-11.0 [facility] Blood erythrocytes count (nu mber/volume)Ordered By: Dr. Fischer on 06-25-2022 RBC (Bld) [#/Vol] 4.73 10*6/uL 4.6-6.2 [facility] Blood hemoglobin measurement (mass/volume)Ordered By: Dr. Fischer [...] 06-25-2022 MCHC (RBC) [Mass/Vol] 33.3 g/dL 32-36 [facility] No Panel InformationOrdered By: Dr. Fischer on 06-25-2022 Estimated GFR (MDRD) Amer 66 mL/min >60 [facility] Comment on above: GFR Calc Estimated GFR (MDRD) Non-Af Amer 54 mL/min >60 [facility] Comment on above: Non- GFR Calc Thyroid Stimulating Hormone (TSH) 2.61 uIU/mL 0.358-3.74 [facility] Vitamin D 25-Hydroxy 32.7 ng/mL [facility] Comment on above: Vitamin D 25(OH) [...] on 06-25-2022 Albumin [Mass/Vol] 4.0 g/dL 3.2-5.0 [facility] Serum or plasma albumin/glob ulin mass ratioOrdered By: Dr. Fischer on 06-25-2022 Albumin/Globulin [Mass ratio] 1.2 {ratio} 0.9-2.4 [facility] Serum or plasma calcium prem urement (mass/volume)Ordered By: Dr. Fischer on 06-25-2022 Calcium [Mass/Vol] 8.9 mg/dL 8.5-10.1 [facility] Serum or plasma creatinine m easurement (mass/volume)Ordered By: Dr. Fischer on 06-25-2022 Creatinine [Mass/Vol] 1.35 mg/dL 0.70-1.30 [facility] Comment on above: The validity of the [...] on 06-07-2022 Basophil percentage 2.6 mg/dL 2.5-4.9 [facility] Chloride [Moles/Vol] 104 mmol/L 98-107 [facility] Glucose [Mass/Vol] 111 mg/dL 74-106 [facility] Comment on above: Fasting Glucose resu lt from 100 to 125 mg/dL suggests IMPAIRED HOMEOSTASIS per A.D.A. criteria. Potassium [Moles/Vol] 4.2 mmol/L 3.5-5.1 [facility] Sodium [Moles/Vol] 140 mmol/L 136-145 [facility] Laboratory - Chemistry and C [...] on 06-07-2022 Albumin [Mass/Vol] 4.0 g/dL 3.2-5.0 [facility] Serum or plasma calcium prem urement (mass/volume)Ordered By: Dr. Brenner on 06-07-2022 Calcium [Mass/Vol] 9.1 mg/dL 8.5-10.1 [facility] Serum or plasma creatinine m easurement (mass/volume)Ordered By: Dr. Brenner on 06-07-2022 Creatinine [Mass/Vol] 1.33 mg/dL 0.70-1.30 [facility] Comment on above: The validity of the [...] Work Phone: Bilirubin [Mass/Vol] 0.70 mg/dL 0.20-1.00 [facility] Work Phone: Comment on above: For patients on eltr ombopag therapy, use of Dimension [place] TBIL is not recommended. Chloride [Moles/Vol] 107 mmol/L 98-107 [facility] Work Phone: Eosinophils/100 WBC (Bld) 10.4 % 0-5 [facility] Work Phone: Glucose [Mass/Vol] 121 mg/dL 74-106 [facility] Work Phone: Comment on above: Fasting Glucose resu lt from 100 to 125 mg/dL suggests IMPAIRED HOMEOSTASIS per A.D.A. criteria. Neutrophils (Bld) [#/Vol] 1.9 10*3/uL 2.0-7.7 [facility] Work Phone: Neutrophils/100 WBC (Bld) 41.3 % 47-70 [facility] Work Phone: [phone] Potassium [Moles/Vol] 3.9 mmol/L 3.5-5.1 [facility] Work Phone: [phone] Protein [Mass/Vol] 7.6 g/dL 6.4-8.2 [facility] Work Phone: [phone] Sodium [Moles/Vol] 141 mmol/L 136-145 [facility] Work Phone: [phone] Testosterone [Mass/Vol] 689.36 ng/dL [facility] Work Phone: [phone] Comment on above: CENTRAL 90% REFERENC E RANGES MALE AGE <50 197.44 - 669.58 ng/dL MALE AGE > or = 50 187.72 - 684.19 ng/dL FEMALE AGE <50 8.38 - 35.01 ng/dL FEMALE AGE > or = 50 <7.00 - 35.92 ng/dL Effective as of 10/11/20 WBC (Bld) [#/Vol] 4.7 10*3/uL 4.4-11.0 [facility] Work Phone: [phone] Blood erythrocytes count (nu mber/volume)on 12-21-2021 RBC (Bld) [#/Vol] 4.50 10*6/uL 4.6-6.2 [facility] Work Phone: [phone] Blood hemoglobin measurement (mass/volume)on 12-21-2021 Hemoglobin (Bld) [Mass/Vol] 14.6 g/dL 13.0-16.5 [facility] Work Phone: [phone] Blood lymphocytes/100 leukoc yteson 12-21-2021 Lymphocytes/100 WBC (Bld) 36.6 % 19-41 [facility] Work Phone: Blood monocytes/100 leukocyt eson 12-21-2021 Monocytes/100 WBC (Bld) 10.6 % 0-10 [facility] Work Phone: [phone] Blood platelet mean volumeon 12-21-2021 Platelet mean [...] 45-117 [facility] Work Phone: ALT [Catalytic activity/Vol] 44 U/L 16-61 [facility] Work Phone: CO2 [Moles/Vol] 25.0 mmol/L 21.0-32.0 [facility] Work Phone: Globulin (S) [Mass/Vol] 3.6 g/dL 2.2-4.2 [facility] Work Phone: [phone] Urea nitrogen/Creatinine [Mass ratio] 10.7 mg/mg 10-20 [facility] Work Phone: Laboratory - Hematology and Cell countson 12-21-2021 Erythrocyte distribution width (RBC) [Entitic vol] 43.6 fL 35.1-43.9 [facility] Work Phone: [phone] Erythrocyte distribution width (RBC) [Ratio] 12.2 % 11.6-14.6 [facility] Work Phone: Immature granulocytes/100 WBC (Bld) 0.200 % 0.0-0.9 [facility] Work Phone: Comment on above: IG% - Immature Granu locytes (promyelocytes, myelocytes and metamyelocytes) > 1% indicates that a LEFT SHIFT is Present. MCH (RBC) [Entitic mass] 32.4 pg 27.0-32.0 [facility] Work Phone: [phone] Nucleated RBC/100 WBC (Bld) [Ratio] 0 % 0-5 [facility] Work Phone: [phone] MCHC Auto (RBC) [Mass/Vol]on 12-21-2021 MCHC (RBC) [Mass/Vol] 33.3 g/dL 32-36 [facility] Work Phone: [phone] No Panel Informationon 12-21 Estimated GFR (MDRD) Amer 59 mL/min >60 [facility] Work Phone: [phone] Comment on above: GFR Calc Estimated GFR (MDRD) Non-Af Amer 49 mL/min >60 [facility] Work Phone: [phone] Comment on above: Non- GFR Calc Thyroid Stimulating Hormone (TSH) 1.46 uIU/mL 0.358-3.74 [facility] Work Phone: [phone] Vitamin D 25-Hydroxy 33.0 ng/mL [facility] Work Phone: [phone] Comment on above: Vitamin D 25(OH) Sta tus Range Deficiency <20 ng/mL (50nmol/L) Insufficiency 20 - 30 ng/mL (50 - 75 nmol/L) Sufficiency 30 - 100 ng/mL (75 - 250 nmol/L) Toxicity >100 ng/mL (>250 nmol/L) Platelets bldon 12-21-2021 Platelets (Bld) [#/Vol] 197 10*3/uL 150-450 [facility] Work Phone: [phone] Serum or plasma albumin prem urement (mass/volume)on 12-21-2021 Albumin [Mass/Vol] 4.0 g/dL 3.2-5.0 [facility] Work Phone: [phone] Serum or plasma albumin/glob ulin mass ratioon 12-21-2021 Albumin/Globulin [Mass ratio] 1.1 {ratio} 0.9-2.4 [facility] Work Phone: Serum or plasma calcium prem urement (mass/volume)on 12-21-2021 Calcium [Mass/Vol] 9.2 mg/dL 8.5-10.1 [facility] Work Phone: Serum or plasma creatinine m easurement (mass/volume)on 12-21-2021 Creatinine [Mass/Vol] 1.49 mg/dL 0.70-1.30 [facility] Work Phone: Comment on above: The validity [...] percentageon 2021 Basophil percentage 2.5 mg/dL 2.5-4.9 [facility] Work Phone: Chloride [Moles/Vol] 107 mmol/L 98-107 [facility] Work Phone: Glucose [Mass/Vol] 97 mg/dL 74-106 [facility] Work Phone: Potassium [Moles/Vol] 3.9 mmol/L 3.5-5.1 [facility] Work Phone: Sodium [Moles/Vol] 141 mmol/L 136-145 [facility] Work Phone: Laboratory - Chemistry and C hemistry - challengeon 12-07-2021 CO2 [Moles/Vol] 26.0 mmol/L 21.0-32.0 [facility] Work Phone: Urea nitrogen/Creatinine [Mass ratio] 14.1 mg/mg 10-20 [facility] Work Phone: [phone] Panel Informationon 12-07 Estimated GFR (MDRD) Amer 62 mL/min >60 [facility] Work Phone: Comment on above: GFR Calc Estimated GFR (MDRD) Non-Af Amer 51 mL/min >60 [facility] Work Phone: Comment on above: Non- GFR Calc Serum or plasma albumin prem urement (mass/volume)on 12-07-2021 Albumin [Mass/Vol] 3.9 g/dL 3.2-5.0 [facility] Work Phone: Serum or plasma calcium prem urement (mass/volume)on 12-07-2021 Calcium [Mass/Vol] 9.2 mg/dL 8.5-10.1 [facility] Work Phone: Serum or plasma creatinine m easurement (mass/volume)on 12-07-2021 Creatinine [Mass/Vol] 1.42 mg/dL 0.70-1.30 [facility] Work Phone: Comment on above: The validity of the calculated GFR & GFRAA in patients over 70 years has not been determined. Clinical correlation is essential. Serum or plasma urea nitroge n measurement (mass/volume)on 12-07-2021 Urea nitrogen [Mass/Vol] 20 mg/dL 7-18 [facility] Work Phone: Basophil percentageon 2021 Basophil percentage 2.8 mg/dL 2.5-4.9 [facility] Work Phone: Chloride [Moles/Vol] 109 mmol/L 98-107 [facility] Work Phone: [phone] Glucose [Mass/Vol] 100 mg/dL 74-106 [facility] Work Phone: Comment on above: Fasting Glucose resu lt from 100 to 125 mg/dL suggests IMPAIRED HOMEOSTASIS per A.D.A. criteria. Potassium [Moles/Vol] 3.9 mmol/L 3.5-5.1 [facility] Work Phone: Sodium [Moles/Vol] 141 mmol/L 136-145 [facility] Work Phone: Laboratory - Chemistry [...] (mass/volume)on 11-15-2021 Albumin [Mass/Vol] 3.8 g/dL 3.2-5.0 [facility] Work Phone: Serum or plasma calcium prem urement (mass/volume)on 11-15-2021 Calcium [Mass/Vol] 9.0 mg/dL 8.5-10.1 [facility] Work Phone: Serum or plasma creatinine m easurement (mass/volume)on 11-15-2021 Creatinine [Mass/Vol] 1.36 mg/dL 0.70-1.30 [facility] Work Phone: Comment on above: The validity of the calculated GFR & GFRAA in patients over 70 years has not been determined. Clinical correlation is essential. Serum or plasma urea nitroge n measurement (mass/volume)on 11-15-2021 Urea nitrogen [Mass/Vol] 17 mg/dL 7-18 [facility] Work Phone: Basophil percentageon 2021 Basophil percentage 3.0 mg/dL 2.5-4.9 [facility] Work Phone: Chloride [Moles/Vol] 109 mmol/L 98-107 [facility] Work Phone: Glucose [Mass/Vol] 105 mg/dL 74-106 [facility] Work Phone: Comment on above: Fasting Glucose resu lt from 100 to 125 mg/dL suggests IMPAIRED HOMEOSTASIS per A.D.A. criteria. Potassium [Moles/Vol] 4.3 mmol/L 3.5-5.1 [facility] Work Phone: Sodium [Moles/Vol] 140 mmol/L 136-145 [facility] Work Phone: Laboratory - Chemistry [...] (mass/volume)on 10-23-2021 Albumin [Mass/Vol] 3.9 g/dL 3.2-5.0 [facility] Work Phone: [phone] Serum or plasma calcium prem urement (mass/volume)on 10-23-2021 Calcium [Mass/Vol] 9.1 mg/dL 8.5-10.1 [facility] Work Phone: [phone] Serum or plasma creatinine m easurement (mass/volume)on 10-23-2021 Creatinine [Mass/Vol] 1.53 mg/dL 0.70-1.30 [facility] Work Phone: Comment on above: The validity of the calculated GFR & GFRAA in patients over 70 years has not been determined. Clinical correlation is essential. Serum or plasma urea nitroge n measurement (mass/volume)on 10-23-2021 Urea nitrogen [Mass/Vol] 22 mg/dL 10-02 [facility] Work Phone: CNOVon 07-13-2017 CNOV Office Visit (UCWSTR) Britt LEE BARNEY Florence ([id number]) 1945 MDate Time Provider Department07/13/17 1:00 PM RENETTA DORMAN ([facility]) [facility] During your visit today, we recorded the following information about you: Temperature Pulse Respiration Blood pressure 97.4 degrees 81/minute 16/minute 128/80 Weight 89.1 kgRenetta Dorman APRN.CNP 07/13/2017 1:45 PM SignedSubjectiveThe history is provided by the patient. No speech language assistant was used.HPI Rayo Lee is a 71 year old male [...] discussed in detail warranting prompt ER evaluation.Renetta Dorman APRN.Shivani Dorman APRN.GENESIS 07/13/2017 1:37 PM AddendumASSESSMENT/PLAN: 1. URI, acute [...] 2 - RashDate Reviewed: 07/13/2017Reviewed by: Renetta AlexanderFranciscan Children'S) Dandy - Fully AssessedReason for Visit: sinus pain [...] breath, inability to swallow. Status:Closed by RENETTA DROMAN CNP on 07/13/17 Normal [facility] PROGRESSon 07-13-2017 PROGRESS HNO ID: [id number]: Renetta Pham) Pabloervice: (none)Author Type: Nurse PractitionerType: Progress NotesFiled: 07/13/2017 1:45 PMNote Text:SubjectiveThe history is provided by the patient. No speech language assistant was used.HPI Rayo Lee is a 71 year old male [...] discussed in detail warranting prompt ER evaluation.Renetta Dorman APRN.[employer] Normal [facility] No Panel Information Influenza Types A,B Direct FA ([facility]) [facility] Work Phone: Vital [...] mm[Hg] Dr. Fox Fischer MD Work Phone: 0(354)978-908703 [place] [address] 05-08-2024 07:55-0500 Body height 185.[address] Fox Fischer MD Work Phone: 6([phone])681-785557 [place] [address] 05-08-2024 07:55-0500 Body mass index (BMI) [Ratio] 27 kg/m2 Dr. Fox Fischer MD Work Phone: 6(361)247-740057 [place] [address] 05-08-2024 07:55-0500 Body temperature 97.2 [degF] Dr. Fox Fischer MD Work Phone: 5(388)471-520457 [place] [address] 05-08-2024 07:55-0500 Body weight 92.[address] Fox Fischer MD Work Phone: 9(915)208-301903 [place] [address] 05-08-2024 07:55-0500 Diastolic blood pressure 82 mm[Hg] Dr. Fox Fischer MD Work Phone: 4(487)662-568303 [place] [address] 05-08-2024 07:55-0500 Heart rate 66 /min Dr. Fox Fischer MD Work Phone: 5(567)944-238703 [place] [address] 05-08-2024 07:55-0500 Respiratory rate 18 /min Dr. Fox Fischer MD Work Phone: 9([phone])903-097303 [place] [address] 05-08-2024 07:55-0500 SaO2% (BldA) [Mass fraction] 97 % Dr. Fox Fischer MD Work Phone: [facility] 05-08-2024 07:55-0500 Systolic blood pressure 161 mm[Hg] Dr. Fox Fischer MD Work Phone: [facility] 07-16-2023 13:33-0400 Diastolic Blood Pressure Non-Invasive 77 mm[Hg] DR VIRGIL SHIRLEY MD [facility] 07-16-2023 13:33-0400 Heart rate 61 /min DR VIRGIL SHIRLEY MD [facility] 07-16-2023 13:33-0400 Respiratory rate 20 /min DR VIRGIL SHIRLEY MD [facility] 07-16-2023 13:33-0400 Systolic Blood Pressure Non-Invasive 153 mm[Hg] DR VIRGIL SHIRLEY MD [facility] 07-16-2023 12:13-0400 Diastolic Blood Pressure Non-Invasive 88 mm[Hg] DR VIRGIL SHIRLEY MD [facility] 07-16-2023 12:13-0400 Heart rate 66 /min DR VIRGIL SHIRLEY MD [facility] 07-16-2023 12:13-0400 Respiratory rate 16 /min DR VIRGIL SHIRLEY MD [facility] 07-16-2023 12:13-0400 Systolic Blood Pressure Non-Invasive 119 mm[Hg] DR VIRGIL SHIRLEY MD [facility] 07-16-2023 10:33-0400 Diastolic Blood Pressure Non-Invasive 64 mm[Hg] DR VIRGIL SHIRLEY MD [facility] 07-16-2023 10:33-0400 Heart rate 65 /min DR VIRGIL SHIRLEY MD [facility] 07-16-2023 10:33-0400 Respiratory rate 18 /min DR VIRGIL SHIRLEY MD [facility] 07-16-2023 10:33-0400 Systolic Blood Pressure Non-Invasive 153 mm[Hg] DR VIRGIL SHIRLEY MD [facility] 04-30-2024 08:59-0400 Body temperature 96.98 [degF] DR VIRGIL SHIRLEY MD [facility] 07-16-2023 08:45-0400 Body temperature 96.8 [degF] DR VIRGIL SHIRELY MD [facility] 07-16-2023 08:45-0400 Respiratory Rate - Anes 12 br/min DR VIRGIL SHIRLEY MD [facility] 07-16-2023 08:40-0400 Respiratory Rate - Anes 12 br/min DR VIRGIL SHIRLEY MD [facility] 07-16-2023 08:35-0400 Respiratory Rate - Anes 11 br/min DR VIRGIL SHIRLEY MD [facility] 07-16-2023 08:30-0400 Body temperature 96.8 [degF] DR VIRGIL SHIRLEY MD [facility] 07-16-2023 08:15-0400 Body temperature 96.8 [degF] DR VIRGIL SHIRLEY MD [facility] 07-16-2023 06:07-0400 Body weight 26.75 kg/m2 DR VIRGIL SHIRLEY MD [facility] 07-16-2023 05:43-0400 Body height 182.[address] VIRGIL SHIRLEY MD [facility] 07-16-2023 05:43-0400 Body temperature 97.52 [degF] DR VIRGIL SHIRLEY MD [facility] 07-16-2023 05:43-0400 Body weight 89.[address] VIRGIL SHIRLEY MD [facility] 07-16-2023 05:43-0400 Heart rate 59 /min DR VIRGIL SHIRLEY MD [facility] 07-04-2023 14:31-0400 Body height 185.[address] [...] 06-26-2023 14:15-0400 Blood Pressure Cuff Size DR VIRGIL SHIRLEY MD [facility] 06-26-2023 14:15-[address] VIRGIL SHIRLEY MD [facility] 06-26-2023 14:15-[address] VIRGIL Rosa [facility] 06-26-2023 14:15-0400 Body height 182.[address] VIRGIL SHIRLEY MD [facility] 06-26-2023 14:15-0400 Body weight 89.[address] VIRGIL SHIRLEY MD [facility] 06-26-2023 14:15-0400 Body weight 26.75 kg/m2 DR VIRGIL SHIRLEY MD [facility] 06-26-2023 14:15-0400 Diastolic Blood Pressure Non-Invasive 83 mm[Hg] DR VIRGIL SHIRLEY MD [facility] 06-26-2023 14:15-0400 Heart rate 60 /min DR VIRGIL SHIRLEY MD [facility] 06-26-2023 14:15-0400 Systolic Blood Pressure Non-Invasive 159 mm[Hg] DR VIRGIL SHIRLEY MD [facility] 04-23-2022 08:56-0500 Body height 185.[address] [...] 18 /min Dr. Fox Fischer Work Phone: 8(184)213-820562 [address] 04-23-2022 08:56-0500 SaO2% (BldA) [Mass fraction] 100 % Dr. Fox Fischer Work Phone: 3(417)822-439203 [place] [address] 04-23-2022 08:56-0500 Systolic blood pressure 163 mm[Hg] Dr. Fox Fischer Work Phone: 1(498)216-536203 [place] [address] 02-26-2022 08:18-0500 Body mass index (BMI) [Ratio] 27.6 kg/m2 Dr. Fox Fischer Work Phone: 4(890)260-449903 [place] [address] 02-26-2022 08:18-0500 Body temperature 97.8 [degF] Dr. Fox Fischer Work Phone: 8(116)489-986957 [place] [address] 02-26-2022 08:18-0500 Body weight 94.[address] Fox Fischer Work Phone: 0(441)678-700657 [place] [address] 02-26-2022 08:18-0500 Diastolic blood pressure 83 mm[Hg] Dr. Fox Fischer Work Phone: 7(862)771-862857 [place] [address] 02-26-2022 08:18-0500 Heart rate 59 /min Dr. Fox Fischer Work Phone: 5(494)564-673757 [place] [address] 02-26-2022 08:18-0500 Respiratory rate 18 /min Dr. Fox Fischer Work Phone: 8(827)558-983903 [place] [address] 02-26-2022 08:18-0500 SaO2% (BldA) [Mass fraction] 99 % Dr. Fox Fischer Work Phone: 7(682)759-062903 [place] [address] 02-26-2022 08:18-0500 Systolic blood pressure 162 mm[Hg] Dr. Fox Fischer Work Phone: 1(115)757-874703 [place] [address] 10-16-2021 09:07-0400 Body height 185.[address] Fox Fischer Work Phone: 8([phone])334-688803 [place] [address] Work Phone: 10-16-2021 09:07-0400 Body mass index [...] Date Encounter Type Care Provider Facility Start: 12-31-2024 End: 12-31-2024 ambulatory [facility] Facility:[facility] Start: 08-13-2024 End: 08-13-2024 Patient encounter procedure No [facility] Work Phone: Start: 08-13-2024 End: 08-13-[address] Fox Fischer MD Work Phone: [facility] Work Phone: Start: 07-02-2024 End: 07-02-[address] Fox Fischer MD Work Phone: [facility] Work Phone: Start: 07-02-2024 End: 07-02-[address] Fox Fischer MD -Laboratory Work Phone: Start: 07-02-2024 End: 04-17-2025 ambulatory Fox Roddy Fischer Facility:[facility] Start: 05-08-2024 End: 05-08-2024 Patient encounter procedure Pam Patel [facility] Work Phone: Start: 05-08-2024 End: 05-08-2024 ambulatory Fox Roddy Fischer Facility:[facility] Start: 02-03-2024 End: 02-03-2024 ambulatory Fox Roddy Aaliyah Facility:[facility] Start: 07-16-2023 End: 07-16-2023 ambulatory VIRGIL SHIRLEY Facility:[facility] Start: 07-16-2023 End: 07-16-[address] VIRGIL SHIRLEY MD [facility] Start: 07-12-2023 End: 07-12-[address] Fox Fischer Work Phone: [facility] Work Phone: Start: 07-12-2023 End: 07-12-[address] Fox Fischer Work Phone: [facility] Work Phone: Start: 07-04-2023 End: 07-04-[address] Fox Fischer Work Phone: [facility] Work Phone: Start: 07-02-2023 End: 07-02-[address] Fox Fischer Work Phone: [facility] Work Phone: Start: 07-02-2023 End: 07-02-[address] Fox Fischer Work Phone: [facility]-Laboratory, Phy Office 3rd Flr Start: 06-26-2023 End: 06-27-2023 ambulatory VIRGIL SHIRLEY Facility:[facility] Start: 06-26-2023 End: 06-27-2023 ambulatory VIRGIL SHIRLEY Facility:[facility] Start: 06-26-2023 End: 06-26-[address] VIRGIL SHIRLEY MD [facility] Start: 06-26-2023 End: 06-26-[address] VIRGIL SHIRLEY MD [facility] Start: 12-24-2022 End: 12-24-2022 ambulatory [facility] Work Phone: Start: 12-24-2022 End: 12-24-2022 Patient encounter procedure [facility]-Laboratory Work Phone: Start: 12-05-2022 End: 12-05-2022 ambulatory [facility] Work Phone: Start: 12-05-2022 End: 12-05-2022 Patient encounter procedure [facility]-Ultrasound, [facility] Work Phone: Start: 11-29-2022 End: 11-29-2022 ambulatory [facility] Work Phone: Start: 11-29-2022 End: 11-29-2022 Patient encounter procedure [facility]-Laboratory, Phy Office 3rd Flr Start: 09-24-2022 End: 09-24-2022 ambulatory [facility] Work Phone: Start: 09-24-2022 End: 09-24-2022 Patient encounter procedure [facility]-Radiology, [facility] Work Phone: Start: 09-21-2022 End: 09-21-2022 ambulatory [facility] Work Phone: Start: 09-21-2022 End: 09-21-2022 Patient encounter procedure [facility]-Pre-Admission Testing Work Phone: Start: 09-14-2022 End: 09-14-2022 Patient encounter procedure [facility]-Cat Scan, [facility] Work Phone: Start: 09-03-2022 End: 09-03-2022 Patient encounter procedure [facility]-Laboratory Work Phone: Start: 06-28-2022 End: 06-28-[address] Fox Fischer Work Phone: [facility] Start: 06-25-2022 End: 06-25-[address] Fox Fischer Work Phone: [facility] Work Phone: Start: 06-25-2022 End: 06-25-[address] [facility] Start: 06-07-2022 End: 06-07-[address] Fox Fischer Work Phone: [facility] Work Phone: Start: 06-07-2022 End: 06-07-[address] Fox Fischer [facility] Start: 04-23-2022 End: 04-23-[address] Fox Fischer Work Phone: [facility] Start: 02-26-2022 End: 02-26-[address] Fox Fischer [facility] Start: 01-11-2022 End: 01-11-[address] Fox Fischer Work Phone: [facility] Work Phone: Start: 01-11-2022 End: 01-11-[address] Fox Fischer Work Phone: [facility]-Cardiovascula r Services Start: 12-21-2021 End: 12-21-2021 Patient [...] Fox Fischer Work Phone: [facility]-Pulmonary Services/Neurology Start: 11-23-2021 End: 11-23-[address] Fox Fischer [facility] Start: 11-16-[address] Fox valerio Work Phone: [facility] Start: 11-15-2021 End: 11-15-[address] Fox Fischer Work Phone: [facility] Work Phone: Start: 11-15-2021 End: 11-15-[address] Fox Fischer Work Phone: [facility]-Laboratory Start: 10-23-2021 End: 10-23-[address] Fox Fischer [facility] Start: 10-16-2021 End: 10-16-[address] Fox Fischer Work Phone: [facility] Start: 07-13-2017 End: 07-16-2017 Ambulatory [facility] Procedures Date Procedure Procedure Detail [...] of lower extremity Start: 02-24-[address] VIRGIL SHIRLEY MD Comment on above: SNARE POLYPECTOMY Start: 03-18-2008 Arthroscopy of knee with medial meniscus repair DR VIRGIL SHIRLEY MD Start: 03-18-2003 Simple excision of i nguinal hernial sac DR VIRGIL SHIRLEY MD Cataract extraction and insertion of intraocular lens DR VIRGIL SHIRLEY MD Influenza Types A,B Direct FA ([facility]) Dr. Fox Fischer Work Phone: Repair of inguinal hernia DR VIRGIL SHIRLEY MD Respiratory syncytia l virus antigen assay Dr. Fox Fischer Work Phone: Septoplasty/submucou s resecj w/wo cartilage grf DR VIRGIL SHIRLEY MD Vitrectomy DR VIRGIL Florence MD Plan of Treatment Date Care Activity Detail Author Start: 12-05-2022 Ultrasonography of limb Ext No n Vasc Limited/Soft Tiss [facility] Start: 12-05-2022 US Extremity limited Wo [facility] Patient referral [facility] Work Phone: Payers Date Payer Category Payer Self-pay [id number] 2012 Medicare [id number] 1945 Unknown [id number] 2.16.8 [id number] 1945 Unknown [id number] 2.16.8 [id number] 1945 Unknown [id number] 2.16.8 [id number] Unknown [facility] PACKAGE PLAN [id number] Unknown [id number] 2.16.8 [id number] Unknown [id number] 2.16.8 [id number] Unknown [id number] 2.16.8 [id number] Unknown [id number] 2.16.8 [id number] Unknown [id number] 2.16.8 [id number] Social History Date Type Detail Facility Start: 10-16-2021 End: 02-26-2023 Tobacco smoking status NMIS Unknown if ever smoked [facility] Start: 1945 Sex Assigned At Male [facility] Start: 06-26-2023 Tobacco smoking status Smoker (findi ng) [facility] Comment on above: quit 2008 Sex Assigned At Sex [facility] Start: 08-20-2023 Tobacco smoking stat us NHIS Ex-smoker (finding) [facility] Start: 07-08-2024 Sex Male (finding) [facility] Functional Status Date Assessment Result Facility 07-16-2023 Functional Status Independent [facility] 07-16-2023 Functional Status bilateral knee high chana lied/on [facility] 07-16-2023 Functional Status Maintained [facility] 07-16-2023 Functional Status [place] Aramis portillo [facility] 06-26-2023 Functional Status Sensory Defici ts Hearing deficit, left ear, Hearing deficit, right ear [facility] Mental Status Date Assessment Result Facility 07-16-2023 Mental Status Orientation Oriented x 4 [facility] Clinical Notes 09-10-2022 to 05-08-2024 Note Date & Type Note Facility 05-08-2024 Evaluation note Diagnosis Onset Date Resolution MARIBELL (obstructive sleep apnea) chronic May 08 11:05am 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 April 11:05am [facility] Work Phone: 1(267) 638-333102-21-2025 Evaluation note* Diagnosis Onset Date Resolution Status Admit Date MARIBELL (obstructive sleep apnea) chroni c May 08, 2024 11:05am Stage 2 moderate COPD by GOL D classification chronic May 08 11:05am Dyspnea on exertion acute July 172024 8:24am Nonrheumatic aortic (valve) stenosis acute August 13, 2024 8 :24am 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 Eat bland, gwnv-ag-ceheaw foods in small amounts as you are able. These foods include bananas, applesauce, rice, lean meats, toast, and crackers. Avoid fluids that contain a lot of sugar or caffeine, such as energy drinks, sports drinks, and soda. Avoid alcohol. Avoid spicy or fatty foods. General instructions Take tnnu-ley-xdgaygc and prescription medicines only as told by your health care provider. Drink enough fluid to keep your urine pale yellow. Wash your hands often using soap and water. If soap and water are not available, use hand flight tower dispatcher. Make sure that all people in your [...] eating and drinking to prevent dehydration. Take zikx-heg-lpncbfq and prescription medicines only as told by [...] 03/04/2006 Document Revised: 06/26/2019 Document Reviewed: 08/12/2018 [employer] Patient Education 2020 [employer]. 07/16/2023 10:24:07 Monitored Anesthesia Care, Care After [...] before eating solid foods. General instructions Take eeoo-zna-hjarlrm and prescription medicines only as told by [...] 06/24/2016 Document Revised: 06/02/2018 Document Reviewed: 06/24/2016 [employer] Patient Education 2020 [employer]. 07/16/2023 10:23:59 Spinal Anesthesia and Epidural Anesthesia, [...] what activities are safe for you. Take daqk-saz-khtlpap and prescription medicines only as told by [...] 05/24/2004 Document Revised: 08/24/2019 Document Reviewed: 06/25/2016 [employer] Patient Education 2020 [employer]. 07/16/2023 10:23:50 Partial Knee Replacement, Care After [...] Follow these instructions at home: Medicines Take uvfl-oqu-lkavqmz and prescription medicines only as told by [...] to keep your urine pale yellow. ?Take ehxr-suz-njuxtup or prescription medicines. ?Eat foods that are [...] and water are not available, use hand flight tower dispatcher. ?Change your dressing as told by your [...] 03/25/2019 Document Revised: 03/25/2019 Document Reviewed: 03/25/2019 [employer] Patient Education 2020 [employer]. Follow Up Care 05/29/2023 08:19:04 With:CARLOS ENRIQUE COFFMAN Address: [facility] [address] [place] [id number]- Business (1) When:07/29/2023 15:00:00 [facility] 04-30-2024 Summary of episode note Discharge Instructions Thank you for allowing [facility] to assist you with your healthcare needs. The following is importantdischarge information regarding your hospital visit. Your Care Team DERRICK FISCHER MD What to do next Follow Up Appointments Follow Up with CARLOS ENRIQUE COFFMAN When 07/29/2023 03:00 PM EDT Where: [facility] [address] [place] [address]- Business (1) The Following Activity and Diet [...] water added (diluted fruit juice). Eat bland, eiae-ov-jnvgot foods in small amounts as you are able. These foods include bananas, applesauce, rice, lean meats, toast, and crackers. Avoid fluids that contain a lot of sugar or caffeine, such as energy drinks, sports drinks, and soda. Avoid alcohol. Avoid spicy or fatty foods. General instructions Take dlsq-bjh-vevlqmg and prescription medicines only as told by your health care provider. Drink enough fluid to keep your urine pale yellow. Wash your hands often using soap and water. If soap and water are not available, use hand flight tower dispatcher. Make sure that all people in your [...] eating and drinking to prevent dehydration. Take mybo-hsp-ppmtvnm and prescription medicines only as told by [...] 03/04/2006 Document Revised: 06/26/2019 Document Reviewed: 08/12/2018 [employer] Patient Education 2020 [employer] Monitored Anesthesia Care, Care After These [...] before eating solid foods. General instructions Take ankm-glw-ggjwxel and prescription medicines only as told by [...] 06/24/2016 Document Revised: 06/02/2018 Document Reviewed: 06/24/2016 [employer] Patient Education 2020 [employer]. Spinal Anesthesia and Epidural Anesthesia, Care [...] what activities are safe for you. Take qfph-gbr-ifwbnat and prescription medicines only as told by [...] 05/24/2004 Document Revised: 08/24/2019 Document Reviewed: 06/25/2016 [employer] Patient Education 2020 [employer]. Partial Knee Replacement, Care After This sheet [...] Follow these instructions at home: Medicines Take tdot-chx-bwweddu and prescription medicines only as told by [...] keep your urine pale yellow. ? Take rixn-omn-mwchmaa or prescription medicines. ? Eat foods that [...] and water are not available, use hand flight tower dispatcher. ? Change your dressing as told by [...] Document Reviewed: 03/25/2019 Elsevier Patient Education 2020 [employer] Additional Information VACCINATE! IT SAVES LIVES! Members of the community who have not yet received the COVID-19 vaccine and would like to receive it can visit one of [facility] vaccine clinics. There are many vaccine clinic locations within the [facility]. For locations and available times, please visit [email or web address].[place].gov/. It is important to note that some COVID mobile vaccine clinics are held outdoors and may be canceled in rainy or stormy conditions. To learn more about pediatric vaccinations (ages 5-11), we invite you to visit the [facility] webpage. [email or web address] [email or web address] learn more about the COVID-19 vaccine, we invite you to visit the CDC website for a list of frequently asked questions.https://www.cdc.gov/coronavirus/2019-ncov/vaccines/faq.html [facility] Patient Portal Access Instructions: Stay connected with your healthcare team and access your personal medical information anytime with the [facility] Patient Portal. Please follow the directions below to create your [facility] account: 1.Access the email account you provided upon registration to the hospital/physician office.2.Look for an invitation email from [facility].3.Open the email and access the invitation link: AcceptInvitation to [employer].4.Fill in the required crowley to create your account. To access your account, visit [employer]. Click the blue button labeled Access Patient [...] who you will allowto register on the [facility] Patient Portal for access to your information. You can also access the [facility] Patient Portal on the [facility] chana. Simply click on Patient Portal and then log into your account. If you would like to receive a full copy of your medical records, please contact the [facility] Medical Records Department by calling [phone], Saturday through Saturday between 8 a.m. and [...] Call your local pharmacy or go to [email or web address] to find one close to you.3.Make use of household items: Use cat litter or old coffee grounds to dispose medications if other options arenot available. Mix your drugs with these household products, seal them in an airtight container andthrow it into the garbage. Call [facility]: [phone] to be sure your drugs can be [...] been reviewed and explained to me and I,JESUSRAYO understand my current condition and have read and understand these discharge instructions. I have received a written copy of the plan/instructions. If I have questions, I am aware that I should contact my doctor. 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 Signature: Date/Time: Relationship to Patient: Witness Name/Signature: Date/Time: [facility]04-30-2024 Note ORIGINAL EXAMINATION: TWO XRAY VIEWS OF [...] Sign Date: 07/16/2023 9:24:51 AM Ordering Provider: [facility]04-30-2024 Anesthesiology Consult note Patient: JESUS RAYO Florence Age: 77 years Sex: Male : 1945 Associated Diagnoses: None Author: LIVE RIVAS APRN-CLIENT SERVICES MANAGER Assessment Postanesthesia assessment Vitals: Vital signs from [...] by LIVE RIVAS on 07/16/2023 08:51 AM [facility]04-30-2024 Anesthesiology Consult note Patient: RAYO LEE Age: 77 years Sex: Male : [...] Histories Past Medical History: Resolved HLD (hyperlipidemia) ([id number]): Resolved. Benign hypertension (75414780): Resolved. GERD - Gastro-esophageal reflux disease (5217257345): Resolved. Colon polyps ([id number]): Resolved. Family History: Heart disease Father High blood pressure Father Coronary artery disease 14-Sep-2015 02:33:12<$> Father Glaucoma Sister Procedure history: Colonoscopy ([id number]) on 02/24/2016 at 70 Years. Comments: 02/24/2016 9:29 Radha Flores RN SNARE POLYPECTOMY Arthroscopy of knee with medial meniscus repair (21153015) in 2008 at 63 Years. Herniotomy (205910641) in 2003 at 58 Years. Septoplasty or submucous resection, with or without cartilage scoring, contouring or replacement with graft (22066). Inguinal herniorrhaphy (99403921). Vitrectomy (639684994). CEIOL - Cataract extraction and insertion of intraocular lens ([id number]). Social History Social & Psychosocial Habits Alcohol [...] Signs(last 24 hrs) Last Charted Heart Rate Aplykwvoi32 bpm (JUL 15 07:35) SML528 mmHg (JUL 15 07:35) DBP75 mmHg (JUL 15 07:35) BMI26.75 (JUL 15 06:07) Measurements from flowsheet : Measurements 07/16/2023 6:07 EDT Body Mass Index 26.75 kg/m2 07/16/2023 5:43 EDT Height 182.9 cm Admission Weight 89.5 kg [place] Body Weight 77.62 kg Admission Body Mass [...] Surgeon SN - CAt - Role Performed Anesthesiology Physician 1 SN - CAt - Role Performed Scrub 1 SN - CAt - Role Performed Butcher Apprentice 1 SN - CAt - Role Performed Physician Lumber Checker SN - CAt - Role Performed E Learning Coordinator SN - CAt - Role Performed CLIENT SERVICES MANAGER 07/16/2023 7:35 EDT Heart Rate Monitored 60 [...] Provider #1 Bedside Time Out LIVE RIVAS APRN-CLIENT SERVICES MANAGER Provider #2 Bedside Time Out Marianne Todd RN NPO Status Maintained Allergy Band on and Verified Yes Patient ID Band on and Verified Yes Anesthesia Consent Signed Yes Blood Consent Signed Yes 07/16/2023 6:39 EDT citric acid-sodium citrate Not Given: Other (Not Done) 07/16/2023 6:27 EDT IV Present Present Allergies Yes Anesthesia Extension Set Applied Yes Mechanical Integrity Engineer On Yes Consent Form Signed Yes Patient [...] PHI Designated Person #1 We May Share PHI Designated Person #1 Relationship Spouse Privacy Restrictions Requested None Body Mass Index 26.75 kg/m2 Status N/A Sensory Deficits Hearing deficit, left ear, Hearing deficit, right ear Diagnosed With Sleep Apnea Yes Advanced Directives Yes Advance Directive Type [place] Durable Power of Vp Production [place] Declaration (Living Will) Advance Directive Location [...] 14:45 Anesthesia Evaluation Performed By AYDIN CELESTIN APRN-CLIENT SERVICES MANAGER Anesthesia Evaluation Result Approved Individuals Taught Patient, Spouse Learning Readiness Willing to learn Barriers to Learning None evident Teaching Method Explanation Preferred Spoken Language Belizean Preferred Written Language Belizean Teaching Evaluation Needs reinforcement Total Joint Book [...] Height 182.9 cm Admission Weight 89.5 kg [place] Body Weight 77.62 kg Admission Body Mass [...] no difficulties Skin Temperature Warm Skin Description [place], Dry Skin Integrity Intact Mucous Membrane Color [place] Skin Moisture General Dry Characteristics of Speech [...] locked, Non-Slip footwear . Assessment and Plan [place] Society of Anesthesiologists (ASA) physical status classification: Class III. Anesthetic Preoperative Plan Anesthetic technique: Spinal. Postoperative pain management: adductor. Informed consent: signed by patient. Digitally Signed by LIVE RIVAS on 07/16/2023 07:43 AM [facility]04-10-2024 Note ORIGINAL EXAMINATION: CT OF THE LEFT [...] Sign Date: 06/26/2023 3:35:03 PM Ordering Provider: [facility]06-26-2023 History and physical note Author Carlos Enrique [facility] September 10, 2022 12:22pm Note Date/Time September 10, 2022 12:2 2pm [facility] Medical Records Department [address] [place] [address] History & Physical Exam 09/10/22 1222 MR#: [id number] Acct: [id number] Name: RAYO LEE Rep #:[id number] : 1945 76 From: Carlos Enrique VALDEZ PA-C PCP: Dr. Fox Fischer MD Status:PRE S MI Location: [facility] [place] History and Physical History and Physical? Patient Name: Rayo eLe : 1945 From:? CARLOS ENRIQUE COFFMAN PA-C? [...] the medial joint line.? Patient has tried gbvk-pti-lzlwies medications including Tylenol without relief.? Patient feels unsafe climbing ladders.? He has difficulty with leisure activities such as hiking secondary to the pain.? Patient has had a previous left knee MRI in 2018 which did show post partial medial meniscectomy with full-thickness articular cartilage loss in the medial femoral tibial compartment.? After failure of conservative measures and discussion with Dr. Virgil Shirley, the patient does wish to proceed with a left knee partial knee replacement versus total knee arthroplasty.? Patient has a medical history pertinent for hypertension, chronic obstructive pulmonary disease, enlarged prostate, chronic kidney disease, and previous heart stents.? We have obtain surgical clearance from the primary care provider Dr. Fischer.? We are reaching out for clearance from the brake holder at the [facility].? Patient denies past history of DVT or pulmonary embolism.? No recent chest pain or shortness of breath.? He also reports that he sees a specialist for his kidney disease.? He is also seen forestry pilot Dr. Rivers in the past.? He has [...] osteophyte formation consistent with severe stage IV himp-bw-mjza erosive osteoarthritis of the medial compartment.? Medial stress examination was also previously performed which showed correction of the alignment with methodist of the medial joint space and maintain lateral joint space. IMPRESSION: 1.? 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 Hypertension 3.? Hypercholesterolemia 4.? Chronic obstructive pulmonary disease 5.? History kidney stones 6.? Chronic kidney disease 7.? Thyroid disease 8.? Enlarged prostate 9.? History of heart stents PLAN: Dr. 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 Nonrheumatic aortic (valve) stenosis acute [id number] chronic 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 CKD (chronic kidney disease) chronic Essential hypertension chron ic Hyperlipidemia chronic MARIBELL (obstructive sleep apnea) [facility] Work Phone: Evaluation note* Diagnosis Onset Date Resolution Status Nonrheumatic aortic (valve) stenosis acute [id number] chronic 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 CKD (chronic kidney disease) chronic Essential hypertension chron ic Hyperlipidemia chronic MARIBELL (obstructive sleep apnea) [facility] Work Phone: Evaluation noteNo assessment information available [facility] Work Phone: Hospital course Narrative No data available for this section [facility] Hospital Discharge instructions No data available for this section [facility] Progress note No data available for this section [facility] Reason for referral (narrative)No reason for referral [facility] Work Phone: Summary Purpose Family History No Family History Records Found Relationship Condition Age at Onset Recorded Date/T adelso father Coronary artery disease Unknown Myocardial infarction 59 Pulmonary embolism Unknown Deep vein thrombosis (DVT) Unknown Advance Directives No Advanced Directives Records Found Advance Directive Response Recorded Date/ Time Living Will Yes August 19, 2018 1 :23pm Power of Vp Production Yes August 19, 2018 1:23pm Advance Directive Response Recorded Date/ Time Living Will Yes September 12, 2022 11:28am Power of Vp Production Yes September 12 11:28am Advance Directive Response Recorded Date/ Time Name of Medical Power of Vp Production ARUN LEE September 12, 2022 11:28am Living Will Yes September 12, 2022 11:28am Power of Vp Production Yes September 12 11:28am Chief Complaint and Reason for Visit Chief Complaint 6 m fu Reason for Visit Nonrheumatic aortic (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 Essential hypertension Hyperlipidemia Chief Complaint 6 m fu Blood Flow Screening - Slider Assembler Reason for Visit Nonrheumatic aortic (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 Essential hypertension Hyperlipidemia Chief Complaint 6 m fu Blood Flow Screening - Slider Assembler ACUTE KIDNEY FAILURE SCREENING Reason for Visit Nonrheumatic aortic (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 Essential hypertension Hyperlipidemia Chief Complaint 6 m fu Blood Flow Screening - Slider Assembler ACUTE KIDNEY FAILURE SCREENING CLAUDICATION Reason for Visit Nonrheumatic aortic (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 Essential hypertension Hyperlipidemia Chief Complaint 1 Y FU 6 M FU Reason for Visit Mass of upper lobe o f left lung MARIBELL (obstructive sleep apnea) Stage 2 moderate COPD by GOLD classification Nonrheumatic aortic (valve) stenosis [id number] Atherosclerotic heart disease of kaibab coronary artery without angina pectoris CKD (chronic kidney disease) Essential hypertension Hyperlipidemia MARIBELL (obstructive sleep apnea) Chief Complaint 6 M FU Reason for Visit Nonrheumatic aortic (valve) stenosis [id number] Atherosclerotic heart disease of kaibab coronary artery without angina pectoris CKD (chronic [...] Reason for Visit Nonrheumatic aortic (valve) stenosis [id number] Atherosclerotic heart disease of kaibab coronary artery without angina pectoris CKD (chronic [...] 2024 8:24am Atherosclerotic heart diseas e of kaib[place] coronary artery without angina pectoris August 13, 2024 8:24am Essential hypertension August 13, 2024 8: 24am Hyperlipidemia August 13, 2024 8:24a m Additional Source Comments (unrecognized sect ion and content) No Status Records FoundNo Status Records FoundNo Status Records Found INFORMATION SOURCE (unrecogn ized section and content) DATE CREATED AUTHOR 09/05/2017 [facility] DATE CREATED AUTHOR AUTHOR'S ORGANIZ ATION 07/28/2023 [facility] ([place]) DATE CREATED AUTHOR AUTHOR'S ORGANIZ ATION 01/10/2025 [facility] Goals (unrecognized section and content) Goals [...] Fischer MD Primary Care Provider Active Dr. Virgil Shirley MD Attending Provider, Referring P rovider Active Team Status: Inactive Member Role Status Dates Dr. Fox Fischer MD Primary Care Provider Active Dr. Ciaran Vazquez MD Attending Provider, Referr ing Provider Active Team Status: Inactive Member Role Status Dates Dr. Fox Fischer MD Primary Care Provi mango, Attending Provider, Referring Provider Active Team Status: Inactive Member Role Status Dates Dr. Fox Fiscehr MD Primary Care [place] m[place], Attending Provider, [...] 2024 End: May 08, 2024 Pam Patel ERP ANALYST, ERP ANALYST-C Attending Provider Active Start: May 08, 2024 [...] 2024 End: August 13, 2024 No Pete ERP ANALYST, ERP ANALYST-C Attending Provider Active Start: August 13, 2024 [...] BE BASED ON THE PRIMARY CLINICAL RECORDS. [employer] provides no warranty or guarantee of the accuracy or completeness of information in this document.
[2025-02-15] MEDS: HYDROcodone Bitartrate/Apap 5/325 Tablet PO (20:29)
[2025-02-15 20:44] VITALS: BP 128/70; PULSE 88; RESP 16; TEMP 36.6; O2SAT 99
== END 2025-02-15 20:45 | disposition home or self-care (01) ==
PROVIDERS: Emergency Provider Emergency Medicine; PCP Family Medicine Geriatric Medicine; Visit Provider Emergency Medicine
DX: S00.83XA Contusion of other part of head, initial encounter (principal); J43.9 Emphysema, unspecified; I25.10 Atherosclerotic heart disease of native coronary artery without angina pectoris; S02.5XXA Fracture of tooth (traumatic), initial encounter for closed fracture; E78.00 Pure hypercholesterolemia, unspecified; N18.9 Chronic kidney disease, unspecified; S00.81XA Abrasion of other part of head, initial encounter; Z87.891 Personal history of nicotine dependence; I12.9 Hypertensive chronic kidney disease with stage 1 through stage 4 chronic kidney disease, or unspecified chronic kidney disease; E03.9 Hypothyroidism, unspecified; Z79.899 Other long term (current) drug therapy; Z79.890 Hormone replacement therapy; Z79.82 Long term (current) use of aspirin; K05.6 Periodontal disease, unspecified; W01.0XXA Fall on same level from slipping, tripping and stumbling without subsequent striking against object, initial encounter
CPT/HCPCS: 70110; 99282